=== PATIENT | male | born 1940 | race Caucasian/White ===

== ENCOUNTER 2022-02-14 23:50 | Emergency (ER) | payer MEDICARE, BC, SELFPAY ==
[2022-02-14 23:54] VITALS: BP 149/94; PULSE 56; RESP 20; TEMP 36.4; O2SAT 98; BMI 31.2
[2022-02-15 00:30] VITALS: BP 135/83; PULSE 53; RESP 12; O2SAT 96
[2022-02-15 01:00] VITALS: BP 125/79; PULSE 53; RESP 22; O2SAT 95
[2022-02-15 01:09] LABS: Basophils Absolute Auto 0.04 K/uL (0.00-0.30); Basophils Percent Auto 0.7 % (0.0-3.0); Eosinophils Percent Auto 6.8 % (0.0-7.0); Hematocrit 38.1 % (37.0-53.0); Hemoglobin* 12.7 gm/dL (13.5-17.5); Immature Granulocytes Abs Auto 0.03 K/uL (0.00-0.30); Immature Granulocytes Pct Auto 0.5 %; Lymphocytes Absolute Auto 2.02 K/uL (0.90-2.90); Lymphocytes Percent Auto 34.2 % (20-44); Mean Corpuscular HGB Conc 33 gm/dL (32-36); Mean Corpuscular Hemoglobin 30 pg (26-34); Mean Corpuscular Volume 89 fL (80-100); Monocytes Percent Auto 10.2 % (0.0-11.0); Neutrophils Absolute Auto 2.81 K/uL (1.7-7.0); Neutrophils Percent Auto 47.6 % (42.0-72.0); Platelet Count* 155 K/uL (140-440); RDW Coefficient of Variation % 13.7 % (11.5-15.5)
[2022-02-15 01:11] VITALS: PULSE 55; O2SAT 95
[2022-02-15 01:14] LABS: Slide Review Reflex No
[2022-02-15 01:21] LABS: Chloride* 108 mmol/L (96-114); Potassium* 3.5 mmol/L (3.6-5.1); Sodium* 137 mmol/L (135-149)
[2022-02-15 01:24] LABS: Est. Creatinine Clearance* 55.97; Estimated Glomerular Filt Rate 75 ml/min
[2022-02-15 01:25] LABS: Blood Urea Nitrogen* 22 mg/dL (7-30); Carbon Dioxide* 20 mmol/L (20-32); Glucose* 172 mg/dL (60-115)
[2022-02-15 01:30] VITALS: PULSE 41; O2SAT 96
[2022-02-15 01:32] VITALS: BP 122/78; PULSE 46; O2SAT 96
[2022-02-15 01:40] LABS: C Reactive Protein* < 0.5 mg/dL (0.5-1.0); NT Pro B Type NatriureticPept* 613 pg/mL; Troponin I* < 0.01 ng/mL (0.01-0.04)
--- NOTE | 2022-02-15 01:59 | ED.GENADULT ---
HPI - General Adult General Chief complaint: Chest Pain Stated complaint: Fast Heartrate Time Seen by Provider: 02/15/22 00:06 History of Present Illness HPI narrative: After /early January 81-year-old Mr. Coleman was seen I believe in 2 harbors and diagnosed with pneumonia and an irregular heartbeat. I believe was placed on Eliquis at that time. Follow up with primary care provider was initiated on a ZIO patch which he has while on currently; to wear for 2 weeks. It sounds as though diagnosis was of atrial fibrillation. They note an irregular heartbeat at follow-up. He is asymptomatic otherwise. Arrives here today though with complaint of the on discomfort mild maybe 1-1/2. Not generating shortness of breath or nausea. He admits that might have gotten a little worried about this. Just did not feel right and was up pacing the house. Initially I am understanding that there was a rapid heart rate but really that does not sound to be the case on further questioning. Plans yet follow-up early this coming week for a cardiac echo. Does exercise regularly. Has recently been on the exercise bike although seems to really enjoys cross-country skiing which he did this morning without apparent difficulty. Related Data Home Medications Medication Instructions Recorded Confirmed apixaban 5 mg tablet (Eliquis) mg 02/15/22 blood sugar diagnostic (True 02/15/22 02/15/22 Metrix Glucose Test Strip) glipizide 2.5 mg tablet, extended mg PO 02/15/22 release 24 hr lisinopril 20 tab 02/15/22 mg-hydrochlorothiazide 25 mg tablet metformin 500 mg tablet,extended mg PO 02/15/22 release 24 hr Allergies Allergy/AdvReac Type Severity Reaction Status Date / Time No Known Drug Allergies Allergy Verified 02/15/22 00:05 Review of Systems Status of ROS: Reports: 10 or more systems reviewed and unremarkable except as noted in History and below PFSH PFSH Social History Smoking Status: Former smoker Do you use any of these nicotine containing products: None Second hand tobacco smoke exposure: Yes How often do you have a drink containing alcohol: 4 or more times a week How many standard drinks containing alcohol do you have on a typical day: 1 or 2 AUDIT-C Alcohol total score: 4 Non-prescribed substance use: denies use Exam Narrative: Exam Narrative: A pleasant. Of good energy. Thoughtful. Seems a little anxious. Skin is warm and dry. Lower extremities with very trace pretibial pitting edema. Well-perfused generally. Moving all extremities without difficulty. Neck is supple. Cranial nerves 2-12 appear to be intact. Lungs are clear. Cardiovascular is with a slow rate and appears to be in an irregularly irregular rhythm initially subtle. Seems more irregular with reauscultation later. Abdomen is overweight soft and nontender. Oropharynx is moist. Const: Vital Signs, click to edit/add: Vital Signs - 24 hr 02/14/22 23:54 02/15/22 01:11 02/15/22 00:30 Temperature 97.5 F L Pulse Rate 55 L 53 L Pulse Rate [Right Pulse Oximeter] 56 L Respiratory Rate 20 12 Blood Pressure 135/83 Blood Pressure [Le ft Upper Arm] 149/94 H Pulse Oximetry 98 95 96 Oxygen Delivery Me thod Room Air 02/15/22 01:00 02/15/22 01:30 02/15/22 01:32 Temperature Pulse Rate 53 L 41 L 46 L Pulse Rate [Right Pulse Oximeter] Respiratory Rate 22 Blood Pressure 125/79 122/78 Blood Pressure [Le ft Upper Arm] Pulse Oximetry 95 96 96 Oxygen Delivery Me thod 02/15/22 02:00 Temperature Pulse Rate 65 Pulse Rate [Right Pulse Oximeter] Respiratory Rate Blood Pressure Blood Pressure [Le ft Upper Arm] Pulse Oximetry 96 Oxygen Delivery Me thod Documenting provider has reviewed patient's vital signs: yes Course Vital Signs Vital signs: Initial Vital Signs Temperature 97.5 F L 02/14/22 23:54 Temperature Source Temporal Artery Scan 02/14/22 23:54 Pulse Rate 56 L 02/14/22 23:54 Respiratory Rate 20 02/14/22 23:54 Blood Pressure 149/94 H 02/14/22 23:54 Blood Pressure Mean 112 02/14/22 23:54 Blood Pressure Position Supine 02/14/22 23:54 Pulse Oximetry 98 02/14/22 23:54 Oxygen Delivery Method 02/14/22 23:54 Vital Signs Temperature 97.5 F L 02/14/22 23:54 Pulse Rate 56 L 02/14/22 23:54 Respiratory Rate 20 12/17/22 23:54 Blood Pressure 149/94 H 02/14/22 23:54 Pulse Oximetry 98 02/14/22 23:54 Oxygen Delivery Method 02/14/22 23:54 Temperature 97.5 F L 02/14/22 23:54 Pulse Rate 65 02/15/22 02:00 Respiratory Rate 22 02/15/22 01:00 Blood Pressure 122/78 02/15/22 01:32 Pulse Oximetry 96 02/15/22 02:00 Oxygen Delivery Method 02/14/22 23:54 Medical Decision Making MDM Narrative Medical decision making narrative: Initial EKG reviewed by me shows what looks to be an a flutter baseline though in an irregular rhythm. Rate of 53. He does note that heart rate typically is slow. He is already anticoagulated. Is currently being monitor was ZIO patch. Is asymptomatic otherwise. We are now about 3 hours plus into symptoms. I discuss likelihood of workup being positive for ischemic disease. I suspect ischemic workup is low yield though I think there is some value in monitoring. We do agree to proceed with some laboratory workup as well. He is monitor during this in the emergency department. Does have times where heart rate goes down into the high 30s. Remains Asymptomatic. He does also throw PVCs here and there. Labs are unremarkable. He is anxious to leave. With discomfort rated now 0.4. Lab Data Lab results reviewed: Yes I reviewed the patient's lab results Labs: Lab Results 02/15/22 02/15/22 02/15/22 Range/Units 00:55 00:55 00:55 WBC 5.90 (4.50-11.00) K/uL RBC 4.30 (4.30-5.90) m/uL Hgb 12.7 L (13.5-17.5) gm/dL Hct 38.1 (37.0-53.0) % MCV 89 (80-100) fL MCH 30 (26-34) pg MCHC 33 (32-36) gm/dL RDW Coeff of Ferny 13.7 (11.5-15.5) % Plt Count 155 (140-440) K/uL Neut % (Auto) 47.6 (42.0-72.0) % Lymph % (Auto) 34.2 (20-44) % [place] % (Auto) 10.2 (0.0-11.0) % Eos % (Auto) 6.8 (0.0-7.0) % Baso % (Auto) 0.7 (0.0-3.0) % Neut # (Auto) 2.81 (1.7-7.0) K/uL Lymph # (Auto) 2.02 (0.90-2.90) K/uL [place] # (Auto) 0.60 (0.00-0.90) K/UL Eos # (Auto) 0.40 (0.00-0.50) K/uL Baso # (Auto) 0.04 (0.00-0.30) K/uL Sodium 137 (135-149) mmol/L Potassium 3.5 L (3.6-5.1) mmol/L Chloride 108 (96-114) mmol/L Carbon Dioxide 20 (20-32) mmol/L BUN 22 (7-30) mg/dL Creatinine 1.0 (0.5-1.5) mg/dL Estimated Creat Clear 55.97 Estimated GFR 75 ml/min Glucose 172 H (60-115) mg/dL Calcium 9.0 (8.4-10.6) mg/dL Troponin I < 0.01 L (0.01-0.04) ng/mL C-Reactive Protein < 0.5 L (0.5-1.0) mg/dL NT-Pro-B Natriuret Pep 613 pg/mL POC Troponin I 0.00 L (0.01-0.04) ng/ml Discharge Plan Discharge Clinical Impression: Atrial fibrillation/flutter, Bradycardia Patient Disposition: Home w/ Parent or Adult Condition: Improved Additional Instructions: Stay hydrated. I think it is okay if you want to go exercising/skiing. If you start to feel symptomatic for example lightheaded, shortness of breath, worsening chest pain, these would be reasons to return to the emergency department. Otherwise keep taking your Eliquis and follow up with that echo as scheduled on Wednesday. Prescriptions: No Action (DME) True Metrix Glucose Test Strip Strip MISCELLANEOUS Label Comments: TEST 2 TIMES PER WEEK. glipizide 2.5 mg tablet extended release 24hr PO Label Comments: TAKE 1 TABLET (2.5 MG) BY MOUTH ONCE DAILY BEFORE A MEAL. lisinopril-hydrochlorothiazide 20-25 mg tablet Label Comments: TAKE ONE TABLET BY MOUTH ONCE DAILY metformin 500 mg tablet extended release 24 hr PO Label Comments: TAKE 4 TABLETS (2,000 MG) BY MOUTH ONCE DAILY WITH EVENING MEAL. Eliquis 5 mg tablet Label Comments: TAKE 1 TABLET (5 MG) BY MOUTH TWO TIMES DAILY. Follow Up/Referrals: Bari Toscano MD [Primary Care Provider] - Stand Alone Forms: [facility] Info Instructions
[2022-02-15 02:00] VITALS: PULSE 65; O2SAT 96
== END 2022-02-15 02:07 | disposition home or self-care (01) ==
PROVIDERS: Emergency Provider Family Medicine; PCP Family Medicine
DX: I48.91 Unspecified atrial fibrillation (principal); R00.1 Bradycardia, unspecified
CPT/HCPCS: 36415; 80048; 83880; 84484; 85025; 86140; 99283; 99284

== ENCOUNTER 2022-03-20 07:56 | Emergency (ER) | payer MEDICARE, SELFPAY ==
[2022-03-20] VITALS (14 sets, daily range): BP systolic 101–141; BP diastolic 64–93; PULSE 44–65; RESP 18; TEMP 35.8; O2SAT 79–100; BMI 30.4
[2022-03-20 08:52] LABS: Basophils Absolute Auto 0.02 K/uL (0.00-0.30); Basophils Percent Auto 0.4 % (0.0-3.0); Eosinophils Absolute Auto 0.23 K/uL (0.00-0.50); Eosinophils Percent Auto 4.7 % (0.0-7.0); Hemoglobin* 13.4 gm/dL (13.5-17.5); Lymphocytes Absolute Auto 1.38 K/uL (0.90-2.90); Lymphocytes Percent Auto 27.9 % (20-44); Mean Corpuscular HGB Conc 34 gm/dL (32-36); Mean Corpuscular Hemoglobin 30 pg (26-34); Mean Corpuscular Volume 88 fL (80-100); Monocytes Percent Auto 9.7 % (0.0-11.0); Neutrophils Absolute Auto 2.83 K/uL (1.7-7.0); Neutrophils Percent Auto 57.3 % (42.0-72.0); Platelet Count* 152 K/uL (140-440); RDW Coefficient of Variation % 13.8 % (11.5-15.5); Red Blood Count 4.53 m/uL (4.30-5.90); White Blood Count* 4.94 K/uL (4.50-11.00)
[2022-03-20] MEDS: SODIUM CHLORIDE 0.9 % (FLUSH) 10 ML SYRINGE 5 ML IVF (08:53)
[2022-03-20 09:09] LABS: Chloride* 107 mmol/L (96-114); Potassium* 3.8 mmol/L (3.6-5.1); Sodium* 137 mmol/L (135-149)
[2022-03-20 09:11] LABS: Creatinine* 0.9 mg/dL (0.5-1.5); Est. Creatinine Clearance* 56.78; Estimated Glomerular Filt Rate 84 ml/min
[2022-03-20 09:12] LABS: Blood Urea Nitrogen* 23 mg/dL (7-30); Calcium* 8.5 mg/dL (8.4-10.6); Carbon Dioxide* 24 mmol/L (20-32); Glucose* 228 mg/dL (60-115)
[2022-03-20 09:13] LABS: Magnesium* 1.9 mg/dL (1.5-2.6)
[2022-03-20 09:28] LABS: Troponin I* < 0.01 ng/mL (0.01-0.04)
[2022-03-20 09:44] LABS: Slide Review Reflex No
[2022-03-20 10:06] LABS: SARS PCR* Negative SARS-CoV-2 (Negative)
--- NOTE | 2022-03-20 11:23 | ED_ITS ---
HPI - General Adult General Chief complaint: Arrhythmia/Palpitations Stated complaint: Heart Palpitations Time Seen by Provider: 03/20/22 07:59 Source: patient and family Mode of arrival: ambulatory Limitations: no limitations History of Present Illness HPI narrative: 82-year-old male with a known history of atrial flutter presents to the emergency department because of increased dyspnea on exertion. Patient was diagnosed with atrial flutter back in December at an outside hospital while vacationing. He was appropriately started on Eliquis but because they are also signs of second-degree block, he was not started on any medications for rate control as they were not needed. Patient reports that for the next 6 weeks, he continued to take his blood thinners and let an active life, cross-country skiing, no difficulties. He actually did follow up with Cardiology last week. Holter monitor, echo those types of things were all reviewed at that appointment. At that time patient was comfortable with a conservative management, elected not to have a pacemaker placed or any other interventions performed. Presents to initially urgent care this morning with increased dyspnea, especially on exertion, feeling generally weaker but with no chest pain. This has been certainly going on at least 24 hours but it sounds more like 48 based on his description, gradual onset. In Urgent Care, he was noted to have a heart rate in the 40s, was ultimately referred to the emergency department. There has been no fever or productive cough. He has not tried any interventions to help with his symptoms prior to seeking ED management. Last meal was 630 in the morning, 2 hours prior to arrival. Does feel irregular heart rate. His clear that something was wrong was when he had to stop every minute or so while trying to ice skate yesterday which is atypical for him. In summary, the echo performed last month showed an EF of 62% with normal right ventricular size and function mild mitral regurgitation. His IO patch showed a minimum heart rate of 22 with a max of 162 but an average of around 60 beats per minute 40% atrial fibrillation/a flutter did have 2nd pauses, 7 of these total. Past medical history most notable for diabetes, atrial flutter. Hypertension, prostate disease. Medications notable for glipizide, lisinopril, hydrochlorothiazide, metformin and recently Eliquis. Socially is a nonsmoker, active lifestyle, no pertinent recent travel. Does have a lot of upcoming travel planned. ROS is notable for the generalized cardiovascular symptoms as above, otherwise denies times 12 systems. Related Data Home Medications Medication Instructions Recorded Confirmed apixaban 5 mg tablet (Eliquis) 5 mg PO Q12H 02/15/22 03/20/22 blood sugar diagnostic (True 02/15/22 02/15/22 Metrix Glucose Test Strip) glipizide 2.5 mg tablet, extended 2.5 mg PO DAILY 02/15/22 03/20/22 release 24 hr lisinopril 20 1 tab PO DAILY 02/15/22 03/20/22 mg-hydrochlorothiazide 25 mg tablet metformin 500 mg tablet,extended 2,000 mg PO DAILY 02/15/22 03/20/22 release 24 hr Allergies Allergy/AdvReac Type Severity Reaction Status Date / Time No Known Drug Allergies Allergy Verified 03/20/22 08:09 [facility] Social History Smoking Status: Former smoker Do you use any of these nicotine containing products: None Second hand tobacco smoke exposure: Yes How often do you have a drink containing alcohol: 4 or more times a week How many standard drinks containing alcohol do you have on a typical day: 1 or 2 AUDIT-C Alcohol total score: 4 Non-prescribed substance use: denies use Exam Const: Vital Signs, click to edit/add: Vital Signs - 24 hr 03/20/22 08:00 03/20/22 10:30 03/20/22 10:32 Temperature 96.5 F L Pulse Rate 52 L 54 L Pulse Rate [Right Pulse Oximeter] 46 L Respiratory Rate 18 Blood Pressure 101/64 Blood Pressure [Ri ght Upper Arm] 141/77 H Pulse Oximetry 99 94 97 Oxygen Delivery Me thod Room Air 03/20/22 11:00 03/20/22 11:01 03/20/22 11:30 Temperature Pulse Rate 44 L 50 L 50 L Pulse Rate [Right Pulse Oximeter] Respiratory Rate Blood Pressure 111/64 Blood Pressure [Ri ght Upper Arm] Pulse Oximetry 97 98 97 Oxygen Delivery Me thod 03/20/22 11:31 03/20/22 11:32 03/20/22 12:00 Temperature Pulse Rate 53 L 44 L 65 Pulse Rate [Right Pulse Oximeter] Respiratory Rate Blood Pressure 127/79 Blood Pressure [Ri ght Upper Arm] Pulse Oximetry 96 97 79 L Oxygen Delivery Me thod 03/20/22 12:01 03/20/22 12:30 03/20/22 12:31 Temperature Pulse Rate 46 L 55 L 61 Pulse Rate [Right Pulse Oximeter] Respiratory Rate Blood Pressure 123/81 129/88 Blood Pressure [Ri ght Upper Arm] Pulse Oximetry 100 98 98 Oxygen Delivery Me thod 03/20/22 13:00 03/20/22 13:02 Temperature Pulse Rate 53 L 54 L Pulse Rate [Right Pulse Oximeter] Respiratory Rate Blood Pressure 135/93 H Blood Pressure [Ri ght Upper Arm] Pulse Oximetry 99 98 Oxygen Delivery Me thod Documenting provider has reviewed patient's vital signs: yes Common normals: no apparent distress General appearance: cooperative, comfortable and well kempt HENMT: Common normals: normocephalic and head/scalp atraumatic Head and scalp: normocephalic and atraumatic Mouth: oral and palatal mucosa normal Throat: posterior oropharynx normal Eye: Common normals: conjunctivae normal General eye: normal appearance of both eyes Conjunctiva: conjunctiva(e) normal Neck & C-Spine: Common normals: no lymphadenopathy Chest: Common normals: inspection of chest normal Resp: Common normals: normal respiratory effort, no use of accessory muscles and clear to auscultation bilaterally Effort & inspection: able to speak in complete sentences Auscultation: clear to auscultation bilaterally Cardio: Other: Irregular rate, around 50 at the time of my auscultation and does match with peripheral pulse. No obvious murmur, no gallops. GI: Common normals: Normal to inspection, nondistended, normoactive bowel sounds present, soft to palpation, non-tender and no hepatosplenomegaly Palpation: soft and no hepatosplenomegaly Extremity: Common normals: normal capillary refill and no pedal edema Neuro: Motor exam: no tremor noted and no movement abnormalities noted Psych: Appearance: well kempt Attitude: calm and engaged Mood and affect: euthymic mood Insight: insight good Judgement: judgment good Skin: Common normals: no rashes or lesions noted General skin exam: no rashes or lesions noted Course Vital Signs Vital signs: Initial Vital Signs Temperature 96.5 F L 03/20/22 08:00 Temperature Source Temporal Artery Scan 03/20/22 08:00 Pulse Rate 46 L 03/20/22 08:00 Pulse Rhythm 03/20/22 08:00 Respiratory Rate 18 03/20/22 08:00 Blood Pressure 141/77 H 03/20/22 08:00 Blood Pressure Mean 98 03/20/22 08:00 Blood Pressure Position Sitting 03/20/22 08:00 Pulse Oximetry 99 03/20/22 08:00 Oxygen Delivery Method 03/20/22 08:00 Vital Signs Temperature 96.5 F L 03/20/22 08:00 Pulse Rate 46 L 03/20/22 08:00 Respiratory Rate 18 03/20/22 08:00 Blood Pressure 141/77 H 03/20/22 08:00 Pulse Oximetry 99 03/20/22 08:00 Oxygen Delivery Method 03/20/22 08:00 Temperature 96.5 F L 03/20/22 08:00 Pulse Rate 54 L 03/20/22 13:02 Respiratory Rate 18 03/20/22 08:00 Blood Pressure 135/93 H 03/20/22 13:02 Pulse Oximetry 98 03/20/22 13:02 Oxygen Delivery Method 03/20/22 08:00 Medical Decision Making MDM Narrative Medical decision making narrative: Per Cardiology recommendation, ambulated the patient around the ED and he is notably dyspnea with minimal exertion. This is much more than patient had originally reported to me. Unfortunately, his heart rate does not increase with exercise. Heart rate did not get above 60 with activity. Does dropped as low as about 37 for us. Is not symptomatic at rest. Discussed with Dr. Mitchell, benefit from pacemaker. We are now on wait list for transfer to [facility]. Patient will remain NPO. Basic labs reviewed, noncontributory. EKG per my interpretation showing a 4-1 atrial flutter. From previous EKGs I do know that he has a second-degree type 1 av block which is better seen on his outpatient EKGs. [place] is an [place]iley normal, prior comparison from [facility] are noted. Patient remain on yacht hand, awaiting instructions for transfer. No instability, does not require pace at this time Update: Transfer to [facility] by ALS ground with no complications. Plan of care discussed with patient and spouse prior to discharge. Lab Data Lab results reviewed: Yes I reviewed the patient's lab results Labs: Lab Results 03/20/22 03/20/22 03/20/22 Range/Units 08:45 08:45 09:17 WBC 4.94 (4.50-11.00) K/uL RBC 4.53 (4.30-5.90) m/uL Hgb 13.4 L (13.5-17.5) gm/dL Hct 40.0 (37.0-53.0) % MCV 88 (80-100) fL MCH 30 (26-34) pg MCHC 34 (32-36) gm/dL RDW Coeff of Ferny 13.8 (11.5-15.5) % Plt Count 152 (140-440) K/uL Neut % (Auto) 57.3 (42.0-72.0) % Lymph % (Auto) 27.9 (20-44) % [place] % (Auto) 9.7 (0.0-11.0) % Eos % (Auto) 4.7 (0.0-7.0) % Baso % (Auto) 0.4 (0.0-3.0) % Neut # (Auto) 2.83 (1.7-7.0) K/uL Lymph # (Auto) 1.38 (0.90-2.90) K/uL [place] # (Auto) 0.50 (0.00-0.90) K/UL Eos # (Auto) 0.23 (0.00-0.50) K/uL Baso # (Auto) 0.02 (0.00-0.30) K/uL Sodium 137 (135-149) mmol/L Potassium 3.8 (3.6-5.1) mmol/L Chloride 107 (96-114) mmol/L Carbon Dioxide 24 (20-32) mmol/L BUN 23 (7-30) mg/dL Creatinine 0.9 (0.5-1.5) mg/dL Estimated Creat Clear 56.78 Estimated GFR 84 ml/min Glucose 228 H (60-115) mg/dL Calcium 8.5 (8.4-10.6) mg/dL Magnesium 1.9 (1.5-2.6) mg/dL Troponin I < 0.01 L (0.01-0.04) ng/mL SARS-CoV-2 (PCR) Negative SARS-CoV-2 (Negative) Discharge Plan Discharge Prescriptions: No Action (DME) True Metrix Glucose Test Strip Strip MISCELLANEOUS Label Comments: TEST 2 TIMES PER WEEK. glipizide 2.5 mg tablet extended release 24hr 2.5 mg PO DAILY Label Comments: TAKE 1 TABLET (2.5 MG) BY MOUTH ONCE DAILY BEFORE A MEAL. lisinopril-hydrochlorothiazide 20-25 mg tablet 1 tab PO DAILY Label Comments: TAKE ONE TABLET BY MOUTH ONCE DAILY metformin 500 mg tablet extended release 24 hr 2,000 mg PO DAILY Label Comments: TAKE 4 TABLETS (2,000 MG) BY MOUTH ONCE DAILY WITH EVENING MEAL. Eliquis 5 mg tablet 5 mg PO Q12H Label Comments: TAKE 1 TABLET (5 MG) BY MOUTH TWO TIMES DAILY. Follow Up/Referrals: Bari Toscano MD [Primary Care Provider] -
--- NOTE | 2022-03-20 11:28 | ED.NURSE ---
no change in condition. [facility] has accepted. 4-8hr wait
--- NOTE | 2022-03-20 13:27 | ED.NURSE ---
EMS here. will transfer to [facility] via ALS. report given.
== END 2022-03-20 13:29 | disposition short-term general hospital (02) ==
LOC: ED 08:51
PROVIDERS: Emergency Provider Family Medicine; PCP Family Medicine
DX: R00.1 Bradycardia, unspecified (principal)
CPT/HCPCS: 36415; 80048; 83735; 84484; 85025; 87635; 93005; 99283; 99285

== ENCOUNTER 2022-03-20 13:19 | Outpatient (CLI) | payer MEDICARE, SELFPAY | END 2022-03-20 13:20 | disposition home or self-care (01) | LOC: AMB 03-23 12:43 | PROVIDERS: PCP Family Medicine; Visit Provider Family Medicine | DX: R06.09 Other forms of dyspnea (principal) | CPT/HCPCS: A0425; A0426; A0427 ==

== ENCOUNTER 2022-09-24 13:30 | Outpatient (RCR) | payer MEDICARE, SELFPAY | END 2022-09-24 15:55 | disposition home or self-care (01) | PROVIDERS: PCP Family Medicine; Visit Provider Family Medicine | DX: M54.50 Low back pain, unspecified (principal); Z51.89 Encounter for other specified aftercare | CPT/HCPCS: 97110; 97112; 97162 ==

== ENCOUNTER 2022-10-20 14:27 | Outpatient (CLI) | payer MEDICARE, SELFPAY ==
--- OUTSIDE RECORDS SUMMARY | 2022-10-20 14:31 | XMS_ITS | Continuity of Care Document ---
Author Name Unknown Organization [facility] Address [address] [place] [address] Phone Care Team Providers Care Taping Supervisor Name Role Phone Pardeep Baird MD Unavailable Unavailable Medications Medication Instructions Dosage Effective Dates (start - stop) Status Comments ALEVE (unknown strength) Not Available - Active TYLENOL (unknown strength) Not Available - Active GABAPENTIN (unknown strength) Not Available - Active OXYCODONE HCL (unknown strength) Not Available - Active Procedures Procedure Date Office/Outpatient Visit,Est, Low 2012 Postop Followup Visit Decompress Lumbar Spinalcord Seg 2012 Doc Antibio Order B/4 Surg Doc Antibio Given B/4 Surg Order For 1st/2nd Gen Cephalsporin Doc Antibiotics Were Given Within 4 Hour s To Incis Doc Order To Discontinue Within 24 Hours Surgical Assist Decompress Lumbar Spinalcord Seg Office/Outpatient Visit,[facility] 2012 Advance Directives Directive Yes / No Effective Date File Name No Information Encounters Encounter Description Practice Location Reason(s) For Visit Diagnoses Date Provider Providers Copied on Encounter [facility], [address], [place], [place], [id number], [place] tel:[phone] [facility] No Information 5 Brie Roberto. [facility] [place], [facility] [address] [place] [address], [facility] [address], [place], [id number], [place]. tel:[phone] Office/Outpa tient Visit,Est, Low Z [facility] [place], [facility] [address] [place] [address] [address], [place], [address], [place] tel:[phone] [facility] No Information 3 [place]. [address], [id number], [place]. tel:[phone] Referring Provider: Brayden Velázquez, [address], [address]. tel:[phone] Z [facility], [address] [place] [address], [facility], [place] tel:[phone] [facility] No Information 0 8 3 [address], [id number], [place]. tel:[phone] Referring Provider: Brayden Velázquez, [address], [address]. tel:[phone] Z [facility] [place], [address] [place] [address], [facility], [place] tel:[phone] [facility] No Information 0 [address], [id number], [place]. tel:[phone] Z [facility] [place], [address] [place] [address], [facility], [place] tel:[phone] [facility] No Information 0 3 Transfeldt Ensor. [facility] [place], [address], [id number], [place]. tel:[phone] Referring Provider: Brayden Velázquez, [address], [address]. tel:[phone] Office/Outpa tient Visit,[facility], [facility], [address] [place] [address], [facility], [place] tel:[phone] [facility] LUMBAGO 3 [place] [place]or. [facility] [place], [address] [place] [address], [id number], [place]. tel:[phone] Referring Provider: Brayden Velázquez [address], [address]. tel:[phone] Family History Family Member Type Diagnosis Age At Onset No Information Payers Payer name Insurance type Covered libertarian ID Authoriza tion(s) No Information Social History Type Description Quantity Date Captured Comments Sex Male Smoking Status No Information Chief Complaint And Reason For Visit No Information Reason For Referral Reason For Referral No Information History Of Present Illness Encounter Date Complaint History Of Prese nt Illness No Information Functional Status Date Functional Assessmen t No Information Instructions Date Instruction Additional Infor mation No Information Assessments Type Assessment Date No Information Patient Care Teams Name Effective Dates (start - stop) Status Members No Information
== END 2022-10-20 14:28 | disposition home or self-care (01) ==
LOC: INJ CL 14:29
PROVIDERS: PCP Family Medicine; Visit Provider Family Medicine
DX: M54.16 Radiculopathy, lumbar region (principal); M51.36 Other intervertebral disc degeneration, lumbar region
CPT/HCPCS: 64483; J1100; Q9966

== ENCOUNTER 2023-02-01 18:30 | Emergency (ER) | payer MEDICARE, SELFPAY ==
[2023-02-01 19:19] VITALS: BP 107/63; PULSE 82; RESP 20; TEMP 37.1; O2SAT 94; BMI 31.0
[2023-02-01 21:54] VITALS: BP 148/66; PULSE 87; RESP 16; O2SAT 98
--- NOTE | 2023-02-01 22:23 | ED.GENADULT ---
HPI - General Adult General Chief complaint: Syncope/Fainted Stated complaint: Dizzy, faint Time Seen by Provider: 02/01/23 22:21 History of Present Illness HPI narrative: around 1800 at dinner finished eating and felt dizzy and vision got blurry, laid head on table due to feeling this way but denies passing out. has been recently having problems with blood sugars being all over the place did not check sugar at the time of feeling dizzy, patient currently on prednisone for PMR. denies LOC . no weakness or speech problems at this time, patient has equal movement of all extremities, symptoms have at this time resolved. denies any Neuro hx. on Eliquis for pacemaker. 82-year-old man presenting to the emergency department after concern of passing out or least nearly so while at supper this evening approximately 3 hours prior to this interview in very busy emergency department. Describes a great deal of activity and regular exertion. Was more active over the last couple of days than usual. Underlying history of PMR. About to begin a taper off of prednisone dosing for PMR flare. He says during dinner today felt dizzy and vision was maybe a little bit blurry prompting him to place his head on the table and recalls trying to force himself back up. Does not believe actually passed out. reports this occurring 3 times. Over the course of 3-4 minutes. No discoordination, sensory loss or focal weakness is described. Is not describe to have been postictal. No history of seizures. He has not had any fever recently. No cough or cold symptoms. Otherwise has felt well other than maybe a little more achy generally. Blood sugars have been elevated. In later discussion with Cardiology confirming history of paroxysmal afib and slow ventricular response prompting pacer placement. In september pacer interrogation looked good Anticoagulated with apixaban. Related Data Home Medications Medication Instructions Recorded Confirmed apixaban 5 mg tablet (Eliquis) 5 mg PO Q12H 02/15/22 03/20/22 blood sugar diagnostic (True 02/15/22 02/15/22 Metrix Glucose Test Strip) glipizide 2.5 mg tablet, extended 2.5 mg PO DAILY 02/15/22 03/20/22 release 24 hr lisinopril 20 1 tab PO DAILY 02/15/22 03/20/22 mg-hydrochlorothiazide 25 mg tablet metformin 500 mg tablet,extended 2,000 mg PO DAILY 02/15/22 03/20/22 release 24 hr Allergies Allergy/AdvReac Type Severity Reaction Status Date / Time No Known Drug Allergies Allergy Verified 03/20/22 08:09 Review of Systems Status of ROS: Reports: 6 or more systems reviewed and unremarkable except as noted in History and below PFSH PFS Social History Smoking Status: Former smoker Do you use any of these nicotine containing products: None Second hand tobacco smoke exposure: Yes How often do you have a drink containing alcohol: 4 or more times a week How many standard drinks containing alcohol do you have on a typical day: 1 or 2 AUDIT-C Alcohol total score: 4 Non-prescribed substance use: denies use Exam Narrative: Exam Narrative: Kyle complexion. Very pleasantly talkative. NAD. Demonstrating dementia with some poor recall and repeating himself. Moving all extremities with good strength, fluidly. He is well-perfused peripherally. 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 Cranial nerves 2-12 intact. Pupils are 3 mm equal and briskly reactive and accommodating. Head is atraumatic. Neck is supple. Strong and equal carotid upstroke. Lungs are clear. Heart in regular rate and rhythm. Abdomen is soft and nontender. Const: Vital Signs, click to edit/add: Vital Signs - 24 hr 02/01/23 19:19 02/01/23 21:54 Temperature 98.7 F Pulse Rate [Pulse Oximeter] 82 87 Respiratory Rate 20 16 Blood Pressure [Ri t Upper Arm] 107/63 148/66 H Pulse Oximetry 94 98 Oxygen Delivery Me thod Room Air Room Air Documenting provider has reviewed patient's vital signs: yes Course Vital Signs Vital signs: Initial Vital Signs Temperature 98.7 F 02/01/23 19:19 Temperature Source Temporal Artery Scan 02/01/23 19:19 Pulse Rate 82 02/01/23 19:19 Respiratory Rate 20 02/01/23 19:19 Blood Pressure 107/63 02/01/23 19:19 Blood Pressure Mean 77 02/01/23 19:19 Blood Pressure Position Sitting 02/01/23 19:19 Pulse Oximetry 94 02/01/23 19:19 Oxygen Delivery Method Room Air 02/01/23 19:19 Vital Signs Temperature 98.7 F 02/01/23 19:19 Pulse Rate 82 02/01/23 19:19 Respiratory Rate 20 02/01/23 19:19 Blood Pressure 107/63 02/01/23 19:19 Pulse Oximetry 94 02/01/23 19:19 Oxygen Delivery Method Room Air 02/01/23 19:19 Temperature 98.7 F 02/01/23 19:19 Pulse Rate 80 02/01/23 22:52 Respiratory Rate 16 02/01/23 22:52 Blood Pressure 140/60 H 02/01/23 22:52 Pulse Oximetry 98 02/01/23 22:52 Oxygen Delivery Method Room Air 02/01/23 22:52 Medications Administered Medications: Discontinued Medications Generic Name Dose Route Start Last Admin Trade Name Freq PRN Reason Stop Dose Admin Sodium Chloride 1,000 mls @ 1,000 mls/hr 02/01/23 22:51 02/02/23 00:32 0.9 % Sodium Chloride 1000 Ml IV 02/01/23 23:50 Infused .Q1H ONE Infusion Medical Decision Making MDM Narrative Medical decision making narrative: Will be monitoring on phototypesetting equipment monitor during time in the emergency department. This certainly could have been a tachy arrhythmia prompting this. Could simply be exhaustion. Has not been having headaches or other prodrome to suggest indolent intracranial process but since he is on apixaban I think it would be good to do a head CT looking for potential bleed at a minimum. PMR likely contributing to fatigue. Will check labs looking for evidence of cardiac injury. Look for infection in the setting of diabetes. Labs with somewhat elevated proBNP from any prior measurements though has had cardiac work between these measurements. Does not appear to be in heart failure exacerbation at this time. Urinalysis finally obtained showing small ketones and 3+ glucosuria. Blood sugar was [address] reviewed by me with senescent changes. No bleed apparent. Radiology over-read as below COMPARISON: Prior MR head from 07/07/2021 is in assessable on PACS at time of dictation.. FINDINGS: No loss of luu-white differentiation suggestive of recent territorial infarct. No intracranial hemorrhage, abnormal extra-axial fluid collection or midline shift. The ventricular system caliber is prominent, with bifrontal diameter measuring 4.9 cm (2:35), and appears dilated out of proportion to the cerebral sulci near the vertex. There is patchy ill-defined periventricular hypoattenuation, nonspecific but can be seen with chronic microvascular ischemic changes. The basal cisterns are patent. Partially empty sella turcica. Scattered mucosal thickening of the paranasal sinuses. The mastoid air cells are clear. The visualized orbits and calvarium are unremarkable. The cerebellar tonsils are in normal position. IMPRESSION: 1. Prominent ventricular system caliber appears out of proportion to the cerebral sulci near the vertex, questionable for underlying normal pressure hydrocephalus. 2. Otherwise, no recent territory infarct, internal hemorrhage or midline shift. Over time in the emergency department was without further event. Overall seemed to have more energy. Less flushed. Anxious to leave. I did discuss findings with both Neurology and Cardiology. Cardiology overall quite reassured with no further recommendations. Neurology also suspects simply incidental findings on imaging. Admittedly no symptoms prior of hydrocephalus. Blood sugars likely elevated, at least partially secondary to steroids. Will need to be monitored further. Sounds as though there are dosing changes planned for diabetic medications through primary care at this time. Lab Data Lab results reviewed: Yes I reviewed the patient's lab results Labs: Lab Results 02/01/23 02/02/23 02/02/23 Range/Units 23:11 00:30 00:35 WBC 8.12 (4.50-11.00) K/uL RBC 4.43 (4.30-5.90) m/uL Hgb 12.8 L (13.5-17.5) gm/dL Hct 39.6 (37.0-53.0) % MCV 89 (80-100) fL MCH 29 (26-34) pg MCHC 32 (32-36) gm/dL RDW Coeff of Ferny 15.2 (11.5-15.5) % Plt Count 178 (140-440) K/uL Neut % (Auto) 73.3 H (42.0-72.0) % Lymph % (Auto) 14.7 L (20-44) % [place] % (Auto) 9.1 (0.0-11.0) % Eos % (Auto) 2.3 (0.0-7.0) % Baso % (Auto) 0.4 (0.0-3.0) % Neut # (Auto) 6.00 (1.7-7.0) K/uL Lymph # (Auto) 1.20 (0.90-2.90) K/uL [place] # (Auto) 0.70 (0.00-0.90) K/UL Eos # (Auto) 0.19 (0.00-0.50) K/uL Baso # (Auto) 0.03 (0.00-0.30) K/uL Abs Immat Gran (auto) 0.02 (0.00-0.30) K/uL Imm/Tot Granulo (auto) 0.2 % D-Dimer Quant (PE/DVT) < 0.27 (0.00-0.50) ug/ml Sodium 133 L (135-149) mmol/L Potassium 4.3 (3.6-5.1) mmol/L Chloride 103 (96-114) mmol/L Carbon Dioxide 23 (20-32) mmol/L Anion Gap 7 (7-15) mEq/L BUN 38 H (7-30) mg/dL Creatinine 1.2 (0.5-1.5) mg/dL Estimated Creat Clear 45.82 Estimated GFR 60 ml/min Glucose 350 H (60-115) mg/dL Lactate 1.7 (0.5-1.9) mmol/L Calcium 8.9 (8.4-10.6) mg/dL Magnesium 2.1 (1.5-2.6) mg/dL Total Bilirubin 1.5 (0.1-1.5) mg/dL Direct Bilirubin 0.1 (0.0-0.5) mg/dL AST 22 (12-35) U/L ALT 16 (4-50) U/L Alkaline Phosphatase 71 (40-150) U/L Troponin I 0.02 (0.01-0.04) ng/mL C-Reactive Protein 0.9 (0.5-1.0) mg/dL NT-Pro-B Natriuret Pep 2390 pg/mL Total Protein 6.4 (6.0-8.3) g/dL Albumin 3.8 (3.3-5.0) g/dL Urine Color Yellow (Yellow) Urine Appearance Clear (Clear) Urine pH 5.0 (5.0-8.5) Ur Specific [place] 1.020 (1.000-1.030) Urine Protein Negative (Negative) Urine Glucose (UA) 3+ A (Negative) Urine Ketones Trace A (Negative) Urine Blood Negative (Negative) Urine Nitrite Negative (Negative) Urine Bilirubin Negative (Negative) Urine Urobilinogen 0.2 (0.2-1.0) Ur Leukocyte Esterase Trace A (Negative) Urine RBC 0-2 (0-2) Urine WBC 0-2 (0-5) Ur Squamous Epith Cells Few (None-Few) Urine Bacteria None (None) Ethyl Alcohol < 0.01 L (0.01-0.03) % SARS-CoV-2 (PCR) Negative SARS-CoV-2 (Negative) Influenza Type A (PCR) Negative PCR FLU A (Negative) Influenza Type B (PCR) Negative PCR FLU B (Negative) RSV (PCR) Negative PCR RSV (Negative) ECG Data Attestation: I personally reviewed and interpreted this ECG as follows: (Normal sinus rhythm with left bundle. Rate of 80.) Prior ECG tracings: available for review (A flutter on prior EKGs. Had become further bradycardic prompting pacemaker placement in the interim) Discharge Plan Discharge Clinical Impression: PMR (polymyalgia rheumatica), Hyperglycemia, Near syncope Patient Disposition: Home w/ Parent or Adult Condition: Stable Additional Instructions: Stay well-hydrated. Continue to monitor blood sugars carefully/closely. I anticipate you increasing your diabetic medications, namely glipizide as you mentioned, tomorrow as recommended by your care providers. Of course follow-up with that heart monitor/pacer data dump as scheduled with focus on 02/01/2023 I will call you if Neurology or Cardiology has anything further to say. Consider cutting your activity down a little bit over the next few days. Prescriptions: No Action (DME) True Metrix Glucose Test Strip Strip MISCELLANEOUS Patient Comments: TEST 2 TIMES PER WEEK. glipizide 2.5 mg tablet extended release 24hr 2.5 mg PO DAILY Patient Comments: TAKE 1 TABLET (2.5 MG) BY MOUTH ONCE DAILY BEFORE A MEAL. lisinopril-hydrochlorothiazide 20-25 mg tablet 1 tab PO DAILY Patient Comments: TAKE ONE TABLET BY MOUTH ONCE DAILY metformin 500 mg tablet extended release 24 hr 2,000 mg PO DAILY Patient Comments: TAKE 4 TABLETS (2,000 MG) BY MOUTH ONCE DAILY WITH EVENING MEAL. Eliquis 5 mg tablet 5 mg PO Q12H Patient Comments: TAKE 1 TABLET (5 MG) BY MOUTH TWO TIMES DAILY. Follow Up/Referrals: Bari Toscano MD [Primary Care Provider] - Stand Alone Forms: [facility] Info Instructions
[2023-02-01 22:52] VITALS: BP 140/60; PULSE 80; RESP 16; O2SAT 98
--- OUTSIDE RECORDS SUMMARY | 2023-02-01 22:59 | XMS_ITS | Continuity of Care Document ---
Author Name Unknown Organization [facility] Address [address] [place] [address] Phone Care Team Providers Care Switchboard Installer Name Role Phone Pardeep Baird MD Unavailable [...] Surgical Assist Decompress Lumbar Spinalcord Seg Office/Outpatient Visit,[facility] 2012 Advance Directives Directive Yes / No Effective Date File Name No Information Encounters Encounter Description Practice Location Reason(s) For Visit Diagnoses Date Provider Providers Copied on Encounter [facility], [address], [place], [place], [id number], [place] tel:[phone] [facility] No Information 5 Brie Roberto. [facility], [facility] [address] [place] [address], [facility] [address], [place], [id number], [place]. tel:[phone] Office/Outpa tient Visit,Est, Low Z [facility], [facility] [address] [place] [address], [place], [address], [place] tel:[phone] [facility] No Information 3 [address], [id number], [place]. tel:[phone] Referring Provider: Brayden Velázquez, [address], [address]. tel:[phone] Z [facility], [address] [place] [address], [facility], [place] tel:[phone] [facility] No Information 0 8 [address], [id number], [place]. tel:[phone] Referring Provider: Brayden Velázquez, [address], [address]. tel:[phone] Z [facility], [address] [place] [address], [facility], [place] tel:[phone] [facility] No Information 0 [address], [id number], [place]. tel:[phone] Z [facility], [address] [place] [address], [facility], [place] tel:[phone] [facility] No Information 0 3 [address] Ensor. [facility], [address], [id number], [place]. tel:[phone] Referring Provider: Brayden Velázquez, [address], [address]. tel:[phone] Office/Outpa tient Visit,[facility], [facility], [address] [place] [address], [facility], [place] tel:[phone] [facility] LUM[place] 3 [address]or. [facility], [address] [place] [address], [id number], [place]. tel:[phone] Referring Provider: Brayden Velázquez [address], [address]. tel:[phone] Family History Family Member Type Diagnosis Age At Onset No Information Payers Payer name Insurance type Covered alliance party ID Authoriza tion(s) No Information Social History [...]
--- NOTE | 2023-02-01 23:01 | CRLHL7_ITS ---
For Patients: As a result of the Cures Act, medical imaging exams and procedure reports are released immediately into your electronic medical record. You may view this report before your referring provider. If you have questions, please contact your health care provider. INDICATION: Dizziness. TECHNIQUE: Multiplanar CT examination of the head was performed without the use of intravenous contrast. COMPARISON: Prior MR head from 07/07/2021 is in assessable on PACS at time of dictation.. FINDINGS: No loss of luu-white differentiation suggestive of recent territorial infarct. No intracranial hemorrhage, abnormal extra-axial fluid collection or midline shift. The ventricular system caliber is prominent, with bifrontal diameter measuring 4.9 cm (2:35), and appears dilated out of proportion to the cerebral sulci near the vertex. There is patchy ill-defined periventricular hypoattenuation, nonspecific but can be seen with chronic microvascular ischemic changes. The basal cisterns are patent. Partially empty sella turcica. Scattered mucosal thickening of the paranasal sinuses. The mastoid air cells are clear. The visualized orbits and calvarium are unremarkable. The cerebellar tonsils are in normal position. IMPRESSION: 1. Prominent ventricular system caliber appears out of proportion to the cerebral sulci near the vertex, questionable for underlying normal pressure hydrocephalus. 2. Otherwise, no recent territory infarct, internal hemorrhage or midline shift. Please note that all CT scans at this facility use dose modulation, iterative reconstruction, and/or weight-based dosing when appropriate to reduce radiation dose to as low as reasonably achievable. Dictated by Case Wayne MD @ 02/02/2023 12:15:41 AM (Electronically Signed)
[2023-02-01 23:16] LABS: Lactate* 1.7 mmol/L (0.5-1.9)
[2023-02-01 23:20] LABS: Basophils Absolute Auto 0.03 K/uL (0.00-0.30); Basophils Percent Auto 0.4 % (0.0-3.0); Eosinophils Absolute Auto 0.19 K/uL (0.00-0.50); Eosinophils Percent Auto 2.3 % (0.0-7.0); Hematocrit 39.6 % (37.0-53.0); Hemoglobin* 12.8 gm/dL (13.5-17.5); Immature Granulocytes Abs Auto 0.02 K/uL (0.00-0.30); Immature Granulocytes Pct Auto 0.2 %; Lymphocytes Percent Auto 14.7 % (20-44); Mean Corpuscular HGB Conc 32 gm/dL (32-36); Mean Corpuscular Hemoglobin 29 pg (26-34); Mean Corpuscular Volume 89 fL (80-100); Monocytes Percent Auto 9.1 % (0.0-11.0); Neutrophils Percent Auto 73.3 % (42.0-72.0); Platelet Count* 178 K/uL (140-440); RDW Coefficient of Variation % 15.2 % (11.5-15.5); Red Blood Count 4.43 m/uL (4.30-5.90); White Blood Count* 8.12 K/uL (4.50-11.00)
[2023-02-01 23:33] LABS: Slide Review Reflex No
[2023-02-01 23:39] LABS: Chloride* 103 mmol/L (96-114); Potassium* 4.3 mmol/L (3.6-5.1); Sodium* 133 mmol/L (135-149)
[2023-02-01] MEDS: 0.9 % SODIUM CHLORIDE 1000 ml 1,000 ML IV (23:39)
[2023-02-01 23:40] LABS: Albumin* 3.8 g/dL (3.3-5.0)
[2023-02-01 23:41] LABS: Creatinine* 1.2 mg/dL (0.5-1.5); Est. Creatinine Clearance* 45.82; Estimated Glomerular Filt Rate 60 ml/min
[2023-02-01 23:42] LABS: Anion Gap 7 mEq/L (7-15); Blood Urea Nitrogen* 38 mg/dL (7-30); Calcium* 8.9 mg/dL (8.4-10.6); Carbon Dioxide* 23 mmol/L (20-32); Glucose* 350 mg/dL (60-115)
[2023-02-01 23:43] LABS: Alanine Aminotransferase* 16 U/L (4-50); Alkaline Phosphatase* 71 U/L (40-150); Aspartate Amino Transferase* 22 U/L (12-35); Bilirubin Direct* 0.1 mg/dL (0.0-0.5); Bilirubin Total* 1.5 mg/dL (0.1-1.5); Magnesium* 2.1 mg/dL (1.5-2.6); Total Protein* 6.4 g/dL (6.0-8.3)
[2023-02-01 23:45] LABS: C Reactive Protein* 0.9 mg/dL (0.5-1.0)
[2023-02-01 23:54] LABS: Troponin I* 0.02 ng/mL (0.01-0.04)
[2023-02-01 23:56] LABS: NT Pro B Type NatriureticPept* 2390 pg/mL
[2023-02-01 23:57] LABS: Ethanol* < 0.01 % (0.01-0.03)
[2023-02-02 00:07] LABS: D Dimer Quantitative* < 0.27 ug/ml (0.00-0.50)
[2023-02-02 00:46] LABS: Appearance Urine Clear (Clear); Bilirubin Urine Negative (Negative); Blood Urine Negative (Negative); Color Urine Yellow (Yellow); Glucose Urine 3+ (Negative); Ketones Urine Trace (Negative); Leukocyte Esterase Urine Trace (Negative); Nitrite Urine Negative (Negative); Protein Urine Negative (Negative); Urobilinogen Urine 0.2 (0.2-1.0)
[2023-02-02 01:10] LABS: PCR FLU A Negative PCR FLU A (Negative); PCR FLU B Negative PCR FLU B (Negative); PCR RSV Negative PCR RSV (Negative)
[2023-02-02 01:32] LABS: SARS PCR* Negative SARS-CoV-2 (Negative)
[2023-02-02 01:43] LABS: RBC Urine 0-2 (0-2); Squamous Epithelial Cell Urine Few (None-Few); WBC Urine 0-2 (0-5)
== END 2023-02-02 02:45 | disposition home or self-care (01) ==
PROVIDERS: Emergency Provider Family Medicine; PCP Family Medicine
DX: M35.3 Polymyalgia rheumatica (principal); R73.9 Hyperglycemia, unspecified
CPT/HCPCS: 36415; 70450; 80048; 80076; 81001; 82077; 83605; 83735; 83880; 84484; 85025; 85379; 86140; 87631; 93005; 99284; 99285; J7030

== ENCOUNTER 2023-02-08 08:15 | Outpatient (RCR) | payer MEDICARE, SELFPAY ==
--- NOTE | 2022-12-07 12:23 | PT.OPEX ---
PT [facility] PT [facility] Outpatient Eval Start: 12/07/22 07:14 Freq: Status: Active Protocol: Document 12/07/22 07:19 MLS (Rec: 12/07/22 12:20 MLS [id number]) E-signed By Tamara Lawrence DPT Physical Therapy Outpatient Evaluation Insurance Information Recert Due Date 03/06/23 Insurance Name Medicare B Medical Diagnosis M54.16 lumbar radiculopathy M51.36 DDD M70.61, M70.62 Trochanteric bursitis of both hips M48.062 Spinal stenosis of lumbar region Treating Diagnosis M54.50 LBP M62.81 Generalized muscle weakness R26.2 Difficulty in walking M25.551 Pain in right hip M25.552 Pain in left hip Referring MD Brayden Velázquez MD Subjective Subjective Patient is an 82 year old male who presents to physical therapy with signs and symptoms consistent with bilateral hip and low back pain. He states that he has had back pain on and off for a long time. He also reports having severe stiffness throughout his body and weakness in his legs. He states that in September he had two injections in his lumbar spine, after having a severe flare up in his pain. He reports that the injections helped significantly and relieved some of his pain. He states that he is getting two additional injections today in both of his hips. A few years ago, he had severe lumbar pain, with pain radiating into his leg and he had surgery and has been much better since. He states that up until a few months ago, he was biking and hiking regularly. He reports that he has significantly declined over the past few months. He states that he and his returned from a trip on November 14, and since then he has noticed a significant increase in pain throughout his body and weakness in his legs. He states that he was diagnosed with Polymalgia Rheumatica and was on prednisone for the month of August. He states that currently he can walk about 3 blocks on a good day. He reports that his pain, stiffness and weakness are worse every morning from 6- 10am. He states that he does get some bilateral swelling in his lower extremities and wears compression stockings to help with this. He states that up until July, he was doing strengthening for his legs. He states that he stopped doing his exercises due to pain and weakness in his legs getting worse. He also reports that some days he will get numbness, tingling and pain into both of his arms . He states that sometimes ice, heat and movement help with the pain. He reports that if he does too much movement or walking, he has more pain and stiffness. He states that sometimes her feelslike he cant stand up straight and takes a few very short, shuffling steps to get moving. He also reports that he feels like he has had some cognitive changes. He reports that last week he couldn't get out of bed. He states that when he sleeps, he is at about a 20% incline and doesn't lay flat. He reports that he uses walking sticks at times. He states that he finds himself leaning forward and shuffling his gait. He lives in a one level condo with a walk in shower with a couple inch lip. He reports that he has noticed some mild trembling with his upper extremities at times. Pain Comments Today: 2/10 on a 0-10 pain scale with 10 = extreme pain 3/10 in hips At its worst: 7-8/10 At its best: /10 Current Work Status Retired Preferred Name Susy Hernandez is Precautions Treatment Precautions/Contraindications Pacemaker since March Objective Other/Pertinent Objective Posture Assessment: Decreased lordosis LUMBAR ROM Flexion: 25% repeated flexion : unable to perform secondary to pain Extension: 10% repeated ext: unable to perform secondary to pain Right Sidebend: 25% Left Sidebend: 10% Right Rotation:25% Left Rotation: 25% Shoulder AROM grossly tested and limited to 90 degrees in flexion and abduction secondary to stiffness and pain LE MMT Hip flexion: R 3+/5 L 3+/5 Hip Extension: R 3+/5 L 3+/5 Hip abduction: R 3+/5 L 3+/5 Knee extension: 3+R /5 L 3+/5 Knee Flexion: R 3+/5 L 3+/5 heel walk: unable to perform toe walk: unable to perform JOINT MOBILITY/PALPATION Tenderness to palpation of bilateral QL, ES and piriformis SPECIAL TESTS -Single leg stance: Attempted position, unable to hold -Slump test: positive bilaterally for pain -Straight leg raise: Unable to get supine on table -Crossed straight leg raise: Unable to get supine on table SI/HIP Unable to get supine on table for any hip testing today secondary to extreme pain Functional Test Performed & Score 25/50 Modified Oswestry Low Back Pain Que TUG 20 seconds 2 min 30 seconds 220 feet 5 sit to stands- 30 seconds [facility] Assessment Assessment/Impression Pt is an 82 year old male who presents with concerns of low back pain, generalized weakness, shuffling gait and overall stiffness. Patient also has notable objective findings including limited ROM , impaired balance, and decreased strength that likely contributing to the problem. Patient is a good candidate for skilled therapy to target deficits described above. Skilled PT intervention is necessary for use of therapeutic exercise manual therapy, neuromuscular re- education, gait training, and therapeutic activity. Functional impairments include difficulty with walking, standing, hiking, biking, moving around his home and exercising. See appropriate sections of PT eval for complete list of goals and POC . D/C plan and criteria is for pt to achieve the goals as listed below or until max rehab potential is met. Pt was agreeable with plan of care and goals established Plan of Care Rehabilitation Potential Fair Rehabilitation Potential Comments Patient has a lot functional limitations that have come on over the past 3 months including severe low back and hip pain, severe stiffness throughout several joints, decreased AROM, decreased strength and a shuffling gait pattern noted at times. Physical Therapy Goals ST. Patient [id number] degrees of shoulder flexion for ability to reach overhead into a high shelf, dress and bathe without limitations. 2. Patient is able to sleep without waking more than one time due to pain in a 6-8 hour time frame. 3. Pt will demonstrate independence in performance of home exercise program with the use of video and/or handouts in order to optimize functional mobility and reduce risk for re-injury. 4. Patient will be able to sit for up to one hour without pain. LT. Patient will be able to bend and lift household items from the floor to shoulder height to perform ADLs without pain. 6. Patient will be able to walk around the block without pain. 7. Patient will report pain levels <2/10 with all activities in order to improve functional mobility at home, work and during functional leisure activities. 8. Patient will be able to hike at the [place] with his walking sticks for 60 minutes. Coordination/Communication With Referral Source Treatment Plan/Direct Interventions Gait Training,Manual Therapy, Neuromuscular Re-ed, Therapeutic Activities, Therapeutic Exercises Patient Will Be Discharged From Therapy Independently Progressing Evaluation Billing Untimed Code Treatment Minutes 50 Complexity Moderate Certification Information Physician Comment/Change : Physician NPI Number #
== END 2023-03-29 15:14 | disposition home or self-care (01) ==
PROVIDERS: PCP Family Medicine; Visit Provider Family Medicine
DX: M54.16 Radiculopathy, lumbar region (principal); M70.61 Trochanteric bursitis, right hip; Z51.89 Encounter for other specified aftercare
CPT/HCPCS: 97110; 97162; 97530

== ENCOUNTER 2023-05-30 03:10 | Emergency (ER) | payer MEDICARE, SELFPAY ==
[2023-05-30 03:11] VITALS: BP 147/74; PULSE 73; RESP 22; TEMP 38.1; O2SAT 96; BMI 31.3
--- NOTE | 2023-05-30 03:21 | ED.FEVER ---
HPI - Fever General Time Seen by Provider: 03:21 Date Seen: 05/30/23 Chief Complaint: Fever Stated Complaint: Fever Time Seen by Provider: 05/30/23 03:21 Source: patient, RN notes reviewed and old records reviewed Mode of arrival: ambulatory Limitations: no limitations History of Present Illness HPI Narrative: David is a very pleasant 83-year-old gentleman with a history of polymyalgia rheumatica currently on prednisone 20 mg daily, history of atrial fibrillation with pacemaker currently on Eliquis as well as diabetes who comes to the emergency room with complaints of fever and fatigue. Patient notes that he awoke on WednesdayMay 28 yesterday not feeling well and decided to go back to sleep. By noon he felt well rested and was able to work in the shop yesterday afternoon. 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 He notes however that he was not feeling well and was noted to have a fever up to 102. His states that he was coughing and he does acknowledge some congestion in his nose. Denies any chest pain vomiting diarrhea. Has not had any dysuria. Denies a sore throat or ear pain. David in his have just return from [place] and then flew back and returned on WednesdayMay 24. During that month trip away he did have 3 days of coughing without fever that did resolve. No known ill contacts in the group of 16 with which they were traveling. Patient notes that he has been very thirsty and drinking a lot of water this evening. He endorses increased urination as well and his notes incontinence. Related Data Home Medications Medication Instructions Recorded Confirmed apixaban 5 mg tablet (Eliquis) 5 mg PO Q12H 02/15/22 03/20/22 blood sugar diagnostic (True 02/15/22 02/15/22 Metrix Glucose Test Strip) glipizide 2.5 mg tablet, extended 2.5 mg PO DAILY 02/15/22 03/20/22 release 24 hr lisinopril 20 1 tab PO DAILY 02/15/22 03/20/22 mg-hydrochlorothiazide 25 mg tablet metformin 500 mg tablet,extended 2,000 mg PO DAILY 02/15/22 03/20/22 release 24 hr Previous Rx's Medication Instructions Recorded nirmatrelvir 300 mg (150 mg See Rx Instructions PO .COMPLEX 05/30/23 x2)-ritonavir 100 mg tablet,dose #30 ea pack (Paxlovid) Allergies Allergy/AdvReac Type Severity Reaction Status Date / Time No Known Drug Allergies Allergy Verified 03/20/22 08:09 Review of Systems Status of ROS Reports: 10 or more systems reviewed and unremarkable except as noted in History and below Const Reports: fever, chills and fatigue Eyes Denies: change in vision ENMT Reports: nasal discharge and nasal congestion; Denies: throat pain, neck pain, throat swelling or difficulty swallowing Cardio Denies: chest pain, palpitations, swelling of feet/ankles, lightheadedness or shortness of breath with exertion Resp Reports: cough; Denies: shortness of breath or wheezing GI Denies: abdominal pain, nausea, vomiting, diarrhea or difficulty swallowing Denies: painful urination or urinary frequency Musculo Denies: neck pain Neuro Denies: headache Endo Reports: excessive thirst and fatigue Allergy/Immuno Denies: throat swelling or wheezing PFSH PFSH Social History Smoking Status: Former smoker Do you use any of these nicotine containing products: None Second hand tobacco smoke exposure: Yes How often do you have a drink containing alcohol: 4 or more times a week How many standard drinks containing alcohol do you have on a typical day: 1 or 2 AUDIT-C Alcohol total score: 4 Non-prescribed substance use: denies use Exam Const Vital Signs, click to edit/add: Vital Signs - 24 hr 05/30/23 03:11 Temperature 100.5 F H Pulse Rate [Left Pulse Oximeter] 73 Respiratory Rate 22 Blood Pressure [Right Upper Arm] 147/74 H Pulse Oximetry 96 Oxygen Delivery Method Room Air Course Course ED Course: Differential diagnosis is quite broad and includes pneumonia, COVID, influenza, RSV, urinary tract infection, other viral illness. At this time will place IV, check CBC comprehensive panel CRP urinalysis. An EKG has already been done by the nursing staff and shows atrial fibrillation rate controlled. Patient has known pacemaker. Chest x-ray is also ordered. Reevaluation(s) Reevaluation #1: Has been resting comfortably. Vital Signs Vital signs: Initial Vital Signs Temperature 100.5 F H 05/30/23 03:11 Temperature Source Oral 05/30/23 03:11 Pulse Rate 73 03/31/24 03:11 Pulse Rhythm Regular 05/30/23 03:11 Respiratory Rate 22 05/30/23 03:11 Blood Pressure 147/74 H 05/30/23 03:11 Blood Pressure Mean 98 05/30/23 03:11 Blood Pressure Position Sitting 05/30/23 03:11 Pulse Oximetry 96 05/30/23 03:11 Oxygen Delivery Method Room Air 05/30/23 03:11 Vital Signs Temperature 100.5 F H 05/30/23 03:11 Pulse Rate 73 05/30/23 03:11 Respiratory Rate 22 05/30/23 03:11 Blood Pressure 147/74 H 05/30/23 03:11 Pulse Oximetry 96 05/30/23 03:11 Oxygen Delivery Method Room Air 05/30/23 03:11 Temperature 100.5 F H 05/30/23 03:11 Pulse Rate 73 05/30/23 03:11 Respiratory Rate 22 05/30/23 03:11 Blood Pressure 147/74 H 05/30/23 03:11 Pulse Oximetry 96 05/30/23 03:11 Oxygen Delivery Method Room Air 05/30/23 03:11 MDM - Fever MDM Narrative Medical decision making narrative: 1. [id number] has COVID likely secondary to recent travel from [place]. Chest x-ray reassuring as are oxygen levels which are 96% on room air. Patient noted to have normal white count at this time. No complaints of chest pain or difficulty breathing nor any nausea or vomiting. Patient is a candidate for packs lobe it with modification of his apixaban dosing. Review of all of his medications with the [facility] interaction tool done in the emergency room. Apixaban will need to be reduced to 2.5 mg b.i.d. instead of his current dosing of 5 mg b.i.d.. Also note that is GFR is 85 and therefore no reduction in dosing needs to be done. I did discuss this information with the patient. Did discuss risks of Paxlovid in terms of renal function and drug interactions. 2. Disposition-home at this time. Recommend Tylenol as needed for fever or discomfort. Recommend pushing fluids. Return to the emergency room for worsening symptoms including vomiting with dehydration, difficulty breathing, confusion and as needed. There are challenges obtaining prescriptions today which is Easter Wednesday. I did change patient's preferred pharmacy to [facility] as their own pharmacy [facility] is most likely closed today. I cannot promise that [facility]'s will be open. I also presented them with a hand written prescription for Paxlovid in the event that they would need to travel to [facility] or [facility] to find and open pharmacy. I recommend starting Paxlovid at earliest possible time. Medical Records Attestation: I reviewed the patient's medical records. Lab Data Attestation: I reviewed the patient's lab results. Labs: Lab Results 05/30/23 05/30/23 Range/Units 03:20 03:45 WBC 5.92 (4.50-11.00) K/uL RBC 3.96 L (4.30-5.90) m/uL Hgb 12.2 L (13.5-17.5) gm/dL Hct 36.6 L (37.0-53.0) % MCV 92 (80-100) fL MCH 31 (26-34) pg MCHC 33 (32-36) gm/dL RDW Coeff of Ferny 12.8 (11.5-15.5) % Plt Count 140 (140-440) K/uL Neut % (Auto) 77.7 H (42.0-72.0) % Lymph % (Auto) 9.1 L (20-44) % Ransom % (Auto) 12.2 H (0.0-11.0) % Eos % (Auto) 0.5 (0.0-7.0) % Baso % (Auto) 0.2 (0.0-3.0) % Neut # (Auto) 4.60 (1.7-7.0) K/uL Lymph # (Auto) 0.50 L (0.90-2.90) K/uL Ransom # (Auto) 0.70 (0.00-0.90) K/UL Eos # (Auto) 0.03 (0.00-0.50) K/uL Baso # (Auto) 0.01 (0.00-0.30) K/uL Abs Immat Gran (auto) 0.02 (0.00-0.30) K/uL Imm/Tot Granulo (auto) 0.3 % Sodium 136 (135-149) mmol/L Potassium 3.8 (3.6-5.1) mmol/L Chloride 107 (96-114) mmol/L Carbon Dioxide 23 (20-32) mmol/L Anion Gap 6 L (7-15) mEq/L BUN 24 (7-30) mg/dL Creatinine 0.9 (0.5-1.5) mg/dL Estimated Creat Clear 54.01 Estimated GFR 84 ml/min Glucose 139 H (60-115) mg/dL Calcium 9.2 (8.4-10.6) mg/dL Total Bilirubin 1.5 (0.1-1.5) mg/dL AST 29 (12-35) U/L ALT 25 (4-50) U/L Alkaline Phosphatase 68 (40-150) U/L C-Reactive Protein 2.8 H (0.5-1.0) mg/dL Total Protein 6.2 (6.0-8.3) g/dL Albumin 3.6 (3.3-5.0) g/dL SARS-CoV-2 (PCR) POSITIVE SARS-CoV-2 A (Negative) Influenza Type A (PCR) Negative PCR FLU A (Negative) Influenza Type B (PCR) Negative PCR FLU B (Negative) RSV (PCR) Negative PCR RSV (Negative) Imaging Data Chest x-ray: Attestation: I have reviewed the pertinent imaging results. My impression: No obvious large infiltrates Radiologist's impression: Right costophrenic angle is excluded from the field of view. Left subclavian dual-chamber pacemaker leads overlie the right atrium and right ventricle. Top-normal size of the cardiomediastinal silhouette. Normal pulmonary vasculature. Lungs are well inflated. No focal consolidation. No pleural effusion or pneumothorax. No acute osseous abnormality identified. Impression: No acute cardiopulmonary abnormality identified. ECG Data Attestation: I personally reviewed and interpreted this ECG as follows: Discharge Plan Discharge Clinical Impression: COVID Patient Disposition: Home, Self-Care Condition: Unchanged Additional Instructions: I suggest you start Paxlovid which is a combination of 2 antiviral medications for the treatment of COVID. You will need to decrease your Eliquis dosing to 2.5 mg twice a day. A hand written prescription for Paxlovid is available to you in the event that your pharmacy is closed tomorrow. You will need to look around for open pharmacies. Increase fluids. Tylenol as needed for fever or discomfort Return for difficulty breathing, vomiting and dehydration and as needed. Consider contacting your doctor at your next appointment for a phone visit. Prescriptions: New Paxlovid 300 mg (150 mg x 2)-100 mg tablets,dose pack See Rx Instructions .ROUTE .COMPLEX Qty: 30 0RF Rx Instructions: take TWO 150 mg tablets of nirmatrelvir with ONE 100 mg tablet of ritonavir twice daily for 5 days No Action (DME) True Metrix Glucose Test Strip Strip MISCELLANEOUS Patient Comments: TEST 2 TIMES PER WEEK. glipizide 2.5 mg tablet extended release 24hr 2.5 mg PO DAILY Patient Comments: TAKE 1 TABLET (2.5 MG) BY MOUTH ONCE DAILY BEFORE A MEAL. lisinopril-hydrochlorothiazide 20-25 mg tablet 1 tab PO DAILY Patient Comments: TAKE ONE TABLET BY MOUTH ONCE DAILY metformin 500 mg tablet extended release 24 hr 2,000 mg PO DAILY Patient Comments: TAKE 4 TABLETS (2,000 MG) BY MOUTH ONCE DAILY WITH EVENING MEAL. Eliquis 5 mg tablet 5 mg PO Q12H Patient Comments: TAKE 1 TABLET (5 MG) BY MOUTH TWO TIMES DAILY. Follow Up/Referrals: Bari Toscano MD [Primary Care Provider] - Stand Alone Forms: [facility] Info Instructions
--- NOTE | 2023-05-30 03:42 | XR_ITS ---
Patient: MAC YARBROUGH Facility:?[facility] Patient ID:?[id number] Site Patient ID:?[id number]. Site :?[id number] Study:?XRay-Chest AP PORTABLE-05/30/2023 4:18:15 AM Ordering Physician:Mireya Dennis Final Report: Indication: Fever. Technique: One view(s) of the chest. Comparison: 01/29/2015. Findings: Right costophrenic angle is excluded from the field of view. Left subclavian dual-chamber pacemaker leads overlie the right atrium and right ventricle. Top- normal size of the cardiomediastinal silhouette. Normal pulmonary vasculature. Lungs are well inflated. No focal consolidation. No pleural effusion or pneumothorax. No acute osseous abnormality identified. Impression: No acute cardiopulmonary abnormality identified. Dictated by Keyanna Baez MD @ 05/30/2023 4:33:21 AM Signed by:?Keyanna Baez MD @05/30/2023 4:33:21 AM (Electronic Signature)
[2023-05-30 03:56] LABS: Basophils Absolute Auto 0.01 K/uL (0.00-0.30); Basophils Percent Auto 0.2 % (0.0-3.0); Eosinophils Absolute Auto 0.03 K/uL (0.00-0.50); Eosinophils Percent Auto 0.5 % (0.0-7.0); Hematocrit 36.6 % (37.0-53.0); Hemoglobin* 12.2 gm/dL (13.5-17.5); Immature Granulocytes Abs Auto 0.02 K/uL (0.00-0.30); Immature Granulocytes Pct Auto 0.3 %; Lymphocytes Percent Auto 9.1 % (20-44); Mean Corpuscular HGB Conc 33 gm/dL (32-36); Mean Corpuscular Hemoglobin 31 pg (26-34); Mean Corpuscular Volume 92 fL (80-100); Monocytes Percent Auto 12.2 % (0.0-11.0); Neutrophils Percent Auto 77.7 % (42.0-72.0); Platelet Count* 140 K/uL (140-440); RDW Coefficient of Variation % 12.8 % (11.5-15.5); Red Blood Count 3.96 m/uL (4.30-5.90); White Blood Count* 5.92 K/uL (4.50-11.00)
[2023-05-30 03:59] LABS: Slide Review Reflex No
[2023-05-30 04:02] LABS: PCR FLU A Negative PCR FLU A (Negative); PCR FLU B Negative PCR FLU B (Negative); PCR RSV Negative PCR RSV (Negative); SARS PCR* POSITIVE SARS-CoV-2 (Negative)
[2023-05-30 04:09] LABS: Albumin* 3.6 g/dL (3.3-5.0); Chloride* 107 mmol/L (96-114)
[2023-05-30 04:10] LABS: Potassium* 3.8 mmol/L (3.6-5.1); Sodium* 136 mmol/L (135-149)
[2023-05-30 04:12] LABS: Alkaline Phosphatase* 68 U/L (40-150); Anion Gap 6 mEq/L (7-15); Aspartate Amino Transferase* 29 U/L (12-35); Bilirubin Total* 1.5 mg/dL (0.1-1.5); Carbon Dioxide* 23 mmol/L (20-32); Creatinine* 0.9 mg/dL (0.5-1.5); Est. Creatinine Clearance* 54.01; Estimated Glomerular Filt Rate 84 ml/min; Total Protein* 6.2 g/dL (6.0-8.3)
[2023-05-30 04:13] LABS: Alanine Aminotransferase* 25 U/L (4-50); Blood Urea Nitrogen* 24 mg/dL (7-30); Calcium* 9.2 mg/dL (8.4-10.6); Glucose* 139 mg/dL (60-115)
[2023-05-30 04:15] LABS: C Reactive Protein* 2.8 mg/dL (0.5-1.0)
[2023-05-30 05:00] VITALS: BP 148/72; PULSE 74; RESP 18; TEMP 37.8; O2SAT 96
== END 2023-05-30 05:22 | disposition home or self-care (01) ==
PROVIDERS: Emergency Provider Family Medicine; PCP Family Medicine
DX: U07.1 COVID-19 (principal)
CPT/HCPCS: 36415; 71045; 80053; 81001; 85025; 86140; 87631; 99283; 99284

== ENCOUNTER 2023-07-27 15:09 | Outpatient (CLI) | payer MEDICARE, SELFPAY ==
--- OUTSIDE RECORDS SUMMARY | 2023-07-27 15:15 | XMS_ITS | Clinical Summary ---
Author Organization [facility] Address [address], [place] [address] Care Team Providers Care Digital Tech Name Role Phone Unavailable Primary Care Provider Unavailabl e Source Comments You are receiving this document as you are listed as the primary care provider,follow-up provider, or the patient has been referred to you for consultation.This is in compliance with the Medicare andMedicaid EHR Incentive Program,which states Providers who transition their patient to another setting of careor provider of care or refers their patient to another provider of care shouldprovide summary care record for each transition of care or referral. [facility] Allergies No known active allergies Medications Medication Sig Dispensed Refills Start Date End Date Status metFORMIN (GLUCOPHAGE) 500 MG tablet Take 500 mg by mouth three times a day. Active Social History Tobacco Use Types Packs/Day Years Used Date Smoking Tobacco: Never Smokeless Tobacco: Never Sex and Gender Information Value Date Recorded Sex Assigned at Not on file Gender Identity Not on file Sexual Orientation Not on file Last Filed Vital Signs Vital Sign Reading Time Taken Comments Blood Pressure 156/79 12/05/2017 3:52 PM CDT Pulse 68 12/05/2017 3:52 PM CDT Temperature 36.5 ??C (97.7 ??F) 12/05/2017 3:52 PM CD T Respiratory Rate 20 12/05/2017 3:52 PM CDT Oxygen Saturation 98% 12/05/2017 3:52 PM CDT Inhaled Oxygen Concentration - - Weight - - Height - - Body Mass Index - - Plan of Treatment Health Maintenance Due Date Last Done Comments Medicare Annual Wellness Visit 1940 DTaP/Tdap/Td (1 - Tdap) 1957 Zoster/Shingles (1 of 2) 02/21/1988 Pneumococcal 65+ Yrs (1 - PCV) 2003 COVID-19 Vaccine (1 - 2022-2 4 season) 2022 Influenza (Season Ended) 2023 HepA Aged Out No longer eligi ble based on patient's age to complete this topic HepB Aged Out No longer eligi ble based on patient's age to complete this topic Hib Aged Out No longer eligi ble based on patient's age to complete this topic IPV (Polio) Aged Out No longer eligi ble based on patient's age to complete this topic MCV4 Aged Out No longer eligi ble based on patient's age to complete this topic
--- OUTSIDE RECORDS SUMMARY | 2023-07-27 15:15 | XMS_ITS | Data Portability ---
Author Organization [place] [facility] [place] [facility], [facility] Address [address] [facility], [facility] [address] [place] [address] Care Team Providers Care Boning Room Worker Name Role Phone LINDSAY SANFORD Referring Provider [phone] Assessment No assessment recorded. Plan of Treatment Reminders Order Date Submit Date Provider Last Modified By Organization Details Last Modified Time Details Appointments PSA 10 2023 09:00A M [facility] Not available Not available Not available ESTABLISH ED 2023 09:20A M Louis Cook MD Not available Not available Not available Lab PSA, total, serum or plasma 2023 024 [email or web address] [facility], [address], [place], [address], 04/26/2023 16:13:19 PSA, total, serum or plasma 2022 023 [email or web address] [id number] [facility], [address], [place], [address], 10/05/2022 08:59:41 Referral None recorded. Procedures None recorded. Surgeries None recorded. Imaging None recorded. Medication Orders None recorded. Patient TargetsNo targets recorded. Patient InstructionsNo instructions recorded. Reason for Referral None Reported. Results Created Date Observation Date Name Description Value Unit Range Abnormal Flag LastModifiedBy Organization Detail LastModifiedTime Result Notes None recorded. Procedures Surgical History Date Name Laterality Status Provider Name and Address Organization Details Recorded Time 3 Heart Surgery completed Louis Cook MD [address] [facility],[address], [place], [address], [facility] 09/28/2022 16:37:35 procedure on spine completed Louis Cook MD [address] [facility],[address], [place], [address], [facility] 09/28/2022 16:37:23 Imaging Results None recorded. Procedure Notes None recorded. Medical Equipment None Reported. Allergies No known drug allergies Medications Name Sig Start Date Stop Date Status Note LastModified by Organization Details LastModified Time prednisone 10 mg tablet TAKE ONE TABLET BY MOUTH DAILY active Not Available Not Available No t Available azithromyci n 250 mg tablet TWO TABLETS BY MOUTH THE FIRST DAY, ONE DAILY DAYS 2-5 09/28 completed Not Available Not Available Not Available prednisone 20 mg tablet TAKE 1 TABLET (20 MG) BY MOUTH ONCE DAILY WITH A MEAL. 04/26 completed Not Available Not Available Not Available prednisone 5 mg tablet TAKE 1-3 TABLETS BY MOUTH DAILY DIRECTED IN ADDITION TO THE 10MG PILLS active Not Available Not Available No t Available glipizide ER 5 mg tablet, extended release 24 hr TAKE 2 TABLETS (10 MG) BY MOUTH ONCE DAILY BEFORE A MEAL. active Not Available Not Available No t Available ciprofloxac in 250 mg tablet TAKE 2 TABLETS (500 MG) BY MOUTH TWO TIMES DAILY FOR 10 DAYS. 09/28 completed Not Available Not Available Not Available triamcinolo ne acetonide 0.1 % topical cream APPLY TOPICALLY TO AFFECTED AREA(S) THREE TIMES DAILY. active Not Available Not Available No t Available tamsulosin 0.4 mg capsule TAKE 1 CAPSULE (0.4 MG) BY MOUTH ONCE DAILY AFTER A MEAL. active Not Available Not Available No t Available glipizide ER 2.5 mg tablet, extended release 24 hr TAKE 2 TABLETS (5 MG) BY MOUTH ONCE DAILY BEFORE A MEAL. active Not Available Not Available No t Available gabapentin 300 mg capsule TAKE 1 CAPSULE (300 MG) BY MOUTH AT BEDTIME. active Not Available Not Available No t Available lisinopril 20 mg-hydrochl orothiazide 25 mg tablet TAKE ONE TABLET BY MOUTH ONCE DAILY active Not Available Not Available No t Available metformin ER 500 mg tablet,exte nded release 24 hr TAKE 4 TABLETS (2,000 MG) BY MOUTH ONCE DAILY WITH EVENING MEAL. active Not Available Not Available No t Available amoxicillin 875 mg-potassiu m clavulanate 125 mg tablet TAKE 1 TABLET BY MOUTH TWO TIMES DAILY WITH MEALS FOR 10 DAYS. 04/26 completed Not Available Not Available Not Available oxycodone 5 mg tablet TAKE ONE TABLET BY MOUTH TWICE A DAY NEEDED 04/26 completed Not Available Not Available Not Available ciprofloxac in 0.3 %-dexametha sone 0.1 % ear drops,suspe nsion PLACE 4 DROPS INTO BOTH EARS TWO TIMES DAILY. 09/28 completed Not Available Not Available Not Available Eliquis 5 mg tablet TAKE 1 TABLET (5 MG) BY MOUTH TWO TIMES DAILY. active Not Available Not Available No t Available True Metrix Glucose Test Strip TEST 2 TIMES PER WEEK. active Not Available Not Available No t Available Vitals Date Recorded Body height Body mass index (BMI) Body weight Provider Name and Address Organization Details Last Updated DateTime 09/28/2022 175.26 cm 31 kg/m2 93023.4 g Louis Cook MD [address] [place] [address],[address], [address] 09/28/2022 16:34:03 Date Recorded Body height Body mass index (BMI) Body weight Provider Name and Address Organization Details Last Updated DateTime 04/26/2023 175.26 cm 31 kg/m2 41266.4 g Louis Cook MD [address] [place] [address],[address], [id number] [place] [address] [facility] 04/26/2023 10:59:25 Social History Question Answer Notes LastModified by Organizat ion Details LastModified Time Tobacco Smoking Status Former Smoker Louis Cook MD [address] [place] [address],[address], [address], [facility] 09/28/2022 16:37:00 What Is Your Level Of Alcohol Consumption? Moderate Information not available 09/28/2022 How Many Times Per Week Do You Consume Alcohol? 5-7 Times Per Week Information not available 09/28/2022 What Is Your Level Of Caffeine Consumption? Moderate Information not available 09/28/2022 When Did You Quit Smoking? 16+yearssince lastcigarette Information not available 09/28/2022 What Was The Date Of Your Most Recent Tobacco Screening? 04/26/2023 Information not available 04/26/2023 Have You Ever Been Counseled For Unhealthy Alcohol Use? No Information not available 04/26/2023 Do You Use Any Illicit Or Recreational Drugs? No Information not available 04/26/2023 Has Tobacco Cessation Counseling Been Provided? No Information not available 04/26/2023 How Many Days In The Past Year Have You Consumed 5 Or More Drinks? 0 Information no t available 04/26/2023 Sex: Male Functional Status None recorded. Mental Status None recorded. Family History Relationship Description Onset Age of this Age Resolved Age Notes Mother Family history of cancer Medical History Condition Response Sexually Transmitted Infection N Diabetes Y Other Y Bleeding Disorder Y High Blood Pressure Y Kidney Stones N Cancer Y Lung Disease N Depression N High Cholesterol N Heart Disease Y Immunizations Vaccine Type Date Status Provider Name and Address Organization Details Recorded Time influenza, high-dose, quadrivalent 01/06/2023 completed Louis Cook MD [address] [place] [address],[address], [address], [facility] 04/26/2023 10:59:30 RSV, recombinant, protein subunit RSVpreF, adjuvant reconstituted, 0.5 mL, PF 01/19/2023 completed Louis Cook MD [address] [place] [address],[address], [address], [facility] 04/26/2023 10:59:31 COVID-19, mRNA, LNP-S, PF, 50 mcg/0.5 mL 01/19/2023 completed Louis Cook MD [address] [place] [address],[address], [address], [facility] 04/26/2023 10:59:31 IPV 10/25/2001 completed Susana watson [facility] 01/25/2023 09:28:19 influenza, trivalent, adjuvanted 11/06/2016 completed Susana watson [facility] 01/25/2023 09:28:19 influenza, trivalent, adjuvanted 11/14/2018 completed Susana watson [facility] 01/25/2023 09:28:19 influenza, trivalent, adjuvanted 12/10/2017 completed Susana watson [facility] 01/25/2023 09:28:19 zoster recombinant 03/06/2019 completed Susana Al lar null, [facility] 01/25/2023 09:28:19 zoster recombinant 12/14/2018 completed Susana Al lar null, [facility] 01/25/2023 09:28:19 Influenza vaccine, quadrivalent, adjuvanted 11/10/2019 completed Susana Allar null, [facility] 01/25/2023 09:28:19 Influenza vaccine, quadrivalent, adjuvanted 11/10/2021 completed Susana Allar null, [facility] 01/25/2023 09:28:19 Influenza vaccine, quadrivalent, adjuvanted 12/09/2020 completed Susana Allar null, [facility] 01/25/2023 09:28:19 COVID-19, mRNA, LNP-S, PF, 100 mcg/0.5mL dose or 50 mcg/0.25mL dose 04/01/2020 completed Susana Allar null, [facility] 01/25/2023 09:28:19 COVID-19, mRNA, LNP-S, PF, 100 mcg/0.5mL dose or 50 mcg/0.25mL dose 04/29/2020 completed Susana Allar null, [facility] 01/25/2023 09:28:19 COVID-19, mRNA, LNP-S, PF, 100 mcg/0.5mL dose or 50 mcg/0.25mL dose 12/23/2020 completed Susana Allar null, [facility] 01/25/2023 09:28:19 Pneumococcal conjugate PCV20, polysaccharide [id number] conjugate, adjuvant, PF 03/27/2022 completed Susana Allar null, [facility] 01/25/2023 09:28:19 COVID-19, mRNA, LNP-S, PF, 30 mcg/0.3 mL dose, octavia-sucrose 06/11/2021 completed Susana Allar null, [facility] 01/25/2023 09:28:19 COVID-19, mRNA, LNP-S, bivalent, PF, 50 mcg/0.5 mL or 25mcg/0.25 mL dose 07/28/2022 completed Susana Allar null, [facility] 01/25/2023 09:28:19 COVID-19, mRNA, LNP-S, bivalent, PF, 50 mcg/0.5 mL or 25mcg/0.25 mL dose 11/10/2021 completed Susana Allar null, [facility] 01/25/2023 09:28:19 pneumococcal polysaccharide PPV23 08/03/1995 completed Susana Allar null, [facility] 01/25/2023 09:28:19 pneumococcal polysaccharide PPV23 12/03/2005 completed Susana Allar null, [facility] 01/25/2023 09:28:19 Tdap 05/09/2010 completed Sus[facility]ar null, [facility] 01/25/2023 09:28:19 Tdap 06/11/2020 completed Susana Allar null, [facility] 01/25/2023 09:28:19 Pneumococcal conjugate PCV 13 09/21/2014 completed Susana Allar null, [facility] 01/25/2023 09:28:19 yellow fever live 10/21/2001 completed Susana All ar null, [facility] 01/25/2023 09:28:19 yellow fever live 12/10/2010 completed Susana All ar null, [facility] 01/25/2023 09:28:19 zoster live 11/17/2006 completed Susana Allar null, [facility] 01/25/2023 09:28:19 Influenza, high dose seasonal 11/17/2013 completed Susana Allar null, [facility] 01/25/2023 09:28:19 Influenza, high dose seasonal 11/22/2015 completed Susana Allar null, [facility] 01/25/2023 09:28:19 Influenza, high dose seasonal 11/30/2014 completed Susana Allar null, [facility] 01/25/2023 09:28:19 Influenza, seasonal, injectable 11/24/2011 completed Susana Allar null, [facility] 01/25/2023 09:28:19 Influenza, seasonal, injectable 12/01/2010 completed Susana Allar null, [facility] 01/25/2023 09:28:19 Influenza, seasonal, injectable 12/03/2005 completed Susana Allar null, [facility] 01/25/2023 09:28:19 Influenza, seasonal, injectable 12/13/2003 completed Susana Allar null, [facility] 01/25/2023 09:28:19 Influenza, seasonal, injectable 12/14/2012 completed Susana Allar null, [facility] 01/25/2023 09:28:19 Influenza, seasonal, injectable 12/23/2009 completed Susana Allar null, [facility] 01/25/2023 09:28:19 Influenza, seasonal, injectable 12/29/2006 completed Susana Allar null, [facility] 01/25/2023 09:28:19 Influenza, seasonal, injectable 01/06/2005 completed Susana Allar null, [facility] 01/25/2023 09:28:19 Td (adult), 5 Lf tetanus toxoid, preservative free, adsorbed 11/25/2004 completed Susana Allar null, [facility] 01/25/2023 09:28:19 typhoid, ViCPs 09/23/2001 completed Susana Allar null, [facility] 01/25/2023 09:28:19 typhoid, ViCPs 12/17/2010 completed Susana Allar null, [facility] 01/25/2023 09:28:19 Hep A-Hep B 05/20/2001 completed Susana Allar null, [facility] 01/25/2023 09:28:19 Hep A-Hep B 06/21/2001 completed Susana Allar null, [facility] 01/25/2023 09:28:19 Hep A-Hep B 10/24/2001 completed Susana Allar null, [facility] 01/25/2023 09:28:19 Past Encounters Encounter ID Performer Location Encounter Start Date Encounter Closed Date Diagnosis/Indication Diagnosis SNOMED-CT Code [id number] Louis Cook MD [facility] [address] [place] [place] [address] 09/28/2022 16:22:42 10/02/2022 13:32:27 Malignant tumor of prostate [id number] Lower urin robbin tract symptoms due to benign prostatic hypertrophy [id number] Louis Cook MD [facility] [address] [place] [id number] 04/26/2023 10:54:45 04/26/2023 12:03:27 Malignant tumor of prostate [id number] Lower urin robbin tract symptoms due to benign prostatic hypertrophy [id number] Health Concerns Section Related Observation LastModified by Organization Detai ls LastModified Time None Recorded Concern Status LastModified by Organization Details LastModified Time None Recorded Advance Directives Directive None Recorded Payers Encounter Date Sequence Insurance Name Policy Number Policy Sam Covered Member ID Sam Member ID Guarantor Name 04/26/2023 1 [place] [id number] Enrike Coleman [id number] Enrike Coleman 09/28/2022 1 [place] [id number] Enrike Coleman [id number] Enrike Coleman Notes Date Note Type Note Provider Name and Address Organization Details Recorded Time 09/28/2022 text/html HPI Notes: 82 yo male with history of A.fib (on Eliqius), HTN, DM, memory loss, BPH, and Prostate cancer - T1c - [place] 3+3 = 6 - involving 1/10 cores (< 5%) on Left - TRUS bx (12/15/12) by Dr. Herrera - on expectant management. Prostate MRI (2014) revealed a PI-RADS 2 lesion - underwent MRI bx (10/31/14) of lesion at [facility] - benign. No family H/O prostate cancer. He is on Flomax 0.4 mg daily. 01/20/21- He presents for follow-up on prostate cancer. He denies trouble with urination. He voids every 2-4 hours during the day and 1-2x/night. He denies hesitancy, urgency, or dysuria. 09/28/22 - He presents for follow-up on Prostate cancer. He states his urination is better with Flomax. He voids every 2-4 hours during the day and 1-2x/night. He denies hesitancy, urgency, or dysuria. PSA - 6.85 (09/09/12) - 7.13 (09/26/12) - 6.52 (10/07/12) - 8.67 (09/12/14) - 7.44 (04/09/15) - 7.21 (10/16/15) - 7.64 (10/01/16) - 6.74 (03/10/17) - 6.91 (02/11/18) - 10.96 (11/14/18) - 7.53 (02/16/19) - 6.51 (03/07/20) - 9.21 (11/13/20) - 8.30 (06/09/21) - 11.80 (09/15/22) Louis Cook MD [address] [place] [address],[address], [place], [address] [place] [facility] 09/28/2022 17:22:15 04/26/2023 text/html HPI Notes: 83 yo male with history of A.fib (on Eliqius), HTN, DM, memory loss, BPH, and Prostate cancer - T1c - [place] 3+3 = 6 - involving 1/10 cores (< 5%) on Left - TRUS bx (12/15/12) by Dr. Herrera - on expectant management. Prostate MRI (2014) revealed a PI-RADS 2 lesion - underwent MRI bx (10/31/14) of lesion at [facility] - benign. No family H/O prostate cancer. He is on Flomax 0.4 mg daily. 01/20/21- He presents for follow-up on prostate cancer. He denies trouble with urination. He voids every 2-4 hours during the day and 1-2x/night. He denies hesitancy, urgency, or dysuria. 09/28/22 - He presents for follow-up on Prostate cancer. He states his urination is better with Flomax. He voids every 2-4 hours during the day and 1-2x/night. He denies hesitancy, urgency, or dysuria. 04/26/23 - He presents for follow-up on Prostate cancer. He voids every 2-4 hours during the day and 1-2x/night. - PSA - 9.08 (04/16/23) - decreased PSA - 6.85 (09/09/12) - 7.13 (09/26/12) - 6.52 (10/07/12) - 8.67 (09/12/14) - 7.44 (04/09/15) - 7.21 (10/16/15) - 7.64 (10/01/16) - 6.74 (03/10/17) - 6.91 (02/11/18) - 10.96 (11/14/18) - 7.53 (02/16/19) - 6.51 (03/07/20) - 9.21 (11/13/20) - 8.30 (06/09/21) - 11.80 (09/15/22) - 9.08 (04/16/23) Louis Cook MD [address] [place] [address],[address], [place], [address], [facility] 04/26/2023 11:10:14
--- OUTSIDE RECORDS SUMMARY | 2023-07-27 15:15 | XMS_ITS | Continuity of Care Document ---
Author Organization [facility] Address [address] [place] [address] Phone Care Team Providers Care Carpenter Rough Name Role Phone Pardeep Baird MD Unavailable [...] Surgical Assist Decompress Lumbar Spinalcord Seg Office/Outpatient Visit,[facility] 2012 Advance Directives Directive Yes / No Effective Date File Name No Information Encounters Encounter Description Practice Location Reason(s) For Visit Diagnoses Date Provider Providers Copied on Encounter [facility], [address], [place], [place], [id number], [place] tel:[phone] [facility] No Information 5 Brie Roberto. [facility] [place], On license of [facility] [address] [place] [address], [facility] [address], [place], [id number], [place]. tel:[phone] Office/Outpa tient Visit,Est, Low Z [facility] [place], [address] [place] [address], [place], [address], [place] tel:[phone] [facility] No Information 3 [address] [place] [address], [id number], [place]. tel:[phone] Referring Provider: Brayden Hart, [facility], [place], [address]. tel:[phone] Z [facility], [address] [place] [address], [facility], [place] tel:[phone] [facility] No Information 0 [address] [place] [address], [id number], [place]. tel:[phone] Referring Provider: Brayden Hart, [facility] Wendy [facility], [place], [address]. tel:[phone] Z [facility] [place], [address] [place] [address], [facility], [place] tel:[phone] [facility] No Information 0 [address] [place] [address], [id number], [place]. tel:[phone] Z [facility] [place], [address] [place] [address], [facility], [place] tel:[phone] [facility] No Information 0 3 Transfeldt Ensor. [facility] [place], [address] [place] [address], [id number], [place]. tel:[phone] Referring Provider: Brayden Hart, [facility] Wendy [facility], [place], [address]. tel:[phone] Office/Outpa tient Visit,[facility], [facility], [address] [place] [address], [facility], [place] tel:[phone] [facility] LUMBAGO 3 Transfeldt Ensor. [facility] [place], [address] [place] [address], [address], [id number], [place]. tel:[phone] Referring Provider: Brayden Hart, [place] [address], [place], [address]. tel:[phone] Family History Family Member Type Diagnosis Age At Onset No Information Payers Payer name Insurance type Covered constitution party ID Authoriza tion(s) No Information Social [...]
[2023-07-27 16:27] LABS: BF Clarity* Cloudy; BF Color Grossly Bloody; BF Total Volume* 6
[2023-07-27 16:28] LABS: Mononuclear WBC Body Fluid* 34 %; Polynuclear WBC Body Fluid* 66 %; RBC, Body Fluid* 6840 Cells/uL; WBC, Body Fluid* 808000 Cells/uL
== END 2023-07-27 15:10 | disposition home or self-care (01) ==
PROVIDERS: PCP Family Medicine; Visit Provider Orthopaedic Surgery Sports Medicine
DX: M25.422 Effusion, left elbow (principal)
CPT/HCPCS: 87070; 87075; 87186; 87205; 89051; 89060

== ENCOUNTER 2024-02-24 08:47 | Emergency (ER) | payer MEDICARE, SELFPAY ==
--- OUTSIDE RECORDS SUMMARY | 2024-02-24 08:49 | XMS_ITS | Data Portability ---
Author Organization [facility], [facility] Address [address] [place] [address] Care Team Providers Care Plasma Center Technician Name Role Phone LINDSAY SANFORD Referring Provider Assessment No assessment recorded. Plan of Treatment Reminders Order Date Submit Date Provider Last Modified By Organization Details Last Modified Time Details Appointments PSA 10 2024 09:00A M [facility] Not available Not available Not available ESTABL ISHED 2024 09:20A M Louis Cook MD Not available Not available Not available Lab PSA, total, serum or plasma 2022 023 [email or web address] [facility], [address], [place], [address], 10/05/2022 08:59:41 PSA, total, serum or plasma 2023 024 [email or web address] [facility], [address] , [place], [address], 04/26/2023 16:13:19 PSA, serum or plasma 2023 024 [email or web address] ro [facility], [address], [place], [address], 10/11/2023 10:19:21 PSA, total, serum or plasma 2023 024 [facility], [address], [place], [address], 11/16/2023 14:09:54 Referral None record ed. Procedures None record ed. Surgeries None record ed. Imaging None record ed. Medication Orders None record ed. Patient TargetsNo targets recorded. Patient InstructionsNo instructions recorded. Reason for Referral None Reported. Results Created Date Observation Date Name Description Value Unit Range Abnormal Flag Note LastModifiedBy Organization Detail LastModifiedTime 10/11/19 24 10/11/2023 PSA, serum or plasm a PSA 10.5ng /mL 0-4.0 NG/mL Not Available [facility] [address], [place], [address], 10/05/2023 17:03:38 Result Notes None recorded. Procedures Surgical History Date Name Laterality Status Provider Name and Address Organization Details Recorded Time 4 Blood Draw/HALAL MEAT PACKER/PSA RESULTS completed Carlos Enrique falcon [facility] 10/11/2023 10:18:27 3 Heart Surgery completed Louis Cook MD [address] [place] [address], [phone], [facility] 09/28/2022 16:37:35 procedure on spine completed Louis Cook MD [address] [place] [address], [phone] [place] [address] [facility]rolog 09/28/2022 16:37:23 Imaging Results None recorded. Procedure Notes None recorded. Medical Equipment None Reported. Allergies No known drug allergies Medications Name Sig Start Date Stop Date Status Note LastModified by Organization Details LastModified Time prednisone 10 mg tablet TAKE 1-2 TABLETS (10-20 MG) BY MOUTH ONCE DAILY WITH A MEAL. DIRECTED active Not Available Not Available No t [...] mg tablet, extended release 24 hr TAKE 3 TABLETS (15 MG) BY MOUTH ONCE DAILY BEFORE A [...] 20 mg-hydrochl orothiazide 25 mg tablet TAKE 1 TABLET BY MOUTH ONCE DAILY. active Not Available Not Available No [...] completed Not Available Not Available Not Available trospium 20 mg tablet TAKE ONE TABLET BY MOUTH DAILY active Not Available Not Available No t Available Eliquis 5 mg tablet TAKE 1 TABLET (5 MG) BY MOUTH TWO TIMES DAILY. active Not Available Not Available No t Available True Metrix Glucose Test Strip TEST 2 TIMES PER WEEK. active Not Available Not Available No t Available Paxlovid 300 mg (150 mg x 2)-100 mg tablets in a dose pack TK 2 NIRMATREL VIR TS AND 1 RITONAVIR T TOGETHER PO BID FOR 5 DAYS active Not Available Not Available No t Available Vitals Date Recorded Body height Body mass index (BMI) Body weight Provider Name and Address Organization Details Last Updated DateTime 09/28/2022 175.26 cm 31 kg/m2 89229.4 g Louis Cook MD [address] [place] [address],[address] [address], [facility] 09/28/2022 16:34:03 Date Recorded Body height Body mass index (BMI) Body weight Provider Name and Address Organization Details Last Updated DateTime 04/26/2023 175.26 cm 31 kg/m2 37302.4 g oLuis Cook MD [address] [place] [address],[address] [address], [facility] 04/26/2023 10:59:25 Date Recorded Body height Body mass index (BMI) Body weight Provider Name and Address Organization Details Last Updated DateTime 10/11/2023 175.26 cm 31 kg/m2 76937.4 g Louis Cook MD [address] [place] [address],[place] [phone], [facility] 10/11/2023 09:57:43 Social History Question Answer Notes LastModified by Organizat ion Details LastModified Time Tobacco Smoking Status Former Smoker Louis Cook MD [address] [place] [address], [phone], [facility] 09/28/2022 16:37:00 What Is Your Level [...] Date Of Your Most Recent Tobacco Screening? 10/11/2023 Information not available 10/11/2023 Have You Ever Been Counseled For Unhealthy Alcohol Use? No Information not available 04/26/2023 Do You Use Any Illicit Or Recreational Drugs? No Information not available 04/26/2023 Has Tobacco Cessation Counseling Been Provided? No Information not available 04/26/2023 How Many Days In The Past Year Have You Consumed 5 Or More Drinks? 0 Information no t available 04/26/2023 Sex: Unknown Functional Status None recorded. Mental Status None recorded. Family History Relationship Description Onset Age of this Age Resolved Age Notes LastModified by Organization Details LastModified Time Mother Family history of malignant neoplasm Not available 2022 16:36:20 Medical History Condition Response Other Y High Blood Pressure Y Kidney Stones N Lung Disease N Depression N Sexually Transmitted Infection N Cancer Y High Cholesterol N Diabetes Y Bleeding Disorder Y Heart Disease Y Immunizations Vaccine Type Date Status Note Provider Nam e and Address Organization Details Recorded Time Influenza, high-dose, quadrivalent, PF 3 completed Louis Cook MD [address] [place] [address] [facility]rolog 04/26/2023 10:59:30 RSV, recombinant, protein subunit RSVpreF, adjuvant reconstituted, 0.5 mL, PF 3 completed Louis Cook MD [address] [place] [address] 04/26/2023 10:59:31 COVID-19, mRNA, LNP-S, PF, 50 mcg/0.5 mL 3 completed Louis Cook MD [address] [place] [address], [address] [place] [address] [facility]rolog 04/26/2023 10:59:31 IPV 2 completed Susana Allar walter, [facility] 01/25/2023 09:28:19 Influenza, adjuvanted, trivalent, PF 7 completed Susana Allar null, [facility] 01/25/2023 09:28:19 Influenza, adjuvanted, trivalent, PF 9 completed Susana Allar null, [facility] 01/25/2023 09:28:19 Influenza, adjuvanted, trivalent, PF 8 completed Susana Allar null, [facility] 01/25/2023 09:28:19 zoster recombinant 0 completed Susana Alllulu watson, [facility] 01/25/2023 09:28:19 zoster recombinant 9 completed Susana Allar null, [facility] 01/25/2023 09:28:19 Influenza, adjuvanted, quadrivalent, PF 0 completed Susana Allar null, [facility] 01/25/2023 09:28:19 Influenza, adjuvanted, quadrivalent, PF 2 completed Susana Allar null, [facility] 01/25/2023 09:28:19 Influenza, adjuvanted, quadrivalent, PF 1 completed Susana Allar null, [facility] 01/25/2023 09:28:19 COVID-19, mRNA, LNP-S, PF, 100 mcg/0.5mL dose or 50 mcg/0.25mL dose 1 completed Susana Allar null, [facility] 01/25/2023 09:28:19 COVID-19, mRNA, LNP-S, PF, 100 mcg/0.5mL dose or 50 mcg/0.25mL dose 1 completed Susana Allar null, [facility] 01/25/2023 09:28:19 COVID-19, mRNA, LNP-S, PF, 100 mcg/0.5mL dose or 50 mcg/0.25mL dose 1 completed Susana Allar null, [facility] 01/25/2023 09:28:19 Pneumococcal conjugate PCV20, polysaccharide [id number] conjugate, adjuvant, PF 3 completed Susana Allar null, [facility] 01/25/2023 09:28:19 COVID-19, mRNA, LNP-S, PF, 30 mcg/0.3 mL dose, ocatvia-sucrose 2 completed Susana Allar null, [facility] 01/25/2023 09:28:19 COVID-19, mRNA, LNP-S, bivalent, PF, 50 mcg/0.5 mL or 25mcg/0.25 mL dose 3 completed Susana Allar null, [facility] 01/25/2023 09:28:19 COVID-19, mRNA, LNP-S, bivalent, PF, 50 mcg/0.5 mL or 25mcg/0.25 mL dose 2 completed Susana Allar null, [facility] 01/25/2023 09:28:19 pneumococcal polysaccharide PPV23 6 completed Susana Allar null, [facility] 01/25/2023 09:28:19 pneumococcal polysaccharide PPV23 6 completed Susana Allar null, [facility] 01/25/2023 09:28:19 Tdap 1 completed Susana Allar null, [facility] 01/25/2023 09:28:19 Tdap 1 completed Susana Allar null, [facility] 01/25/2023 09:28:19 Pneumococcal conjugate PCV 13 5 completed Susana Allar null, [facility] 01/25/2023 09:28:19 yellow fever live 2 completed Susana Allar null, [facility] 01/25/2023 09:28:19 yellow fever live 1 completed Susana Allar null, [facility] 01/25/2023 09:28:19 zoster live 7 completed Susana Allar null, [facility] 01/25/2023 09:28:19 Influenza, high-dose, trivalent, PF 4 completed Susana Allar null, [facility] 01/25/2023 09:28:19 Influenza, high-dose, trivalent, PF 6 completed Susana Allar null, [facility] 01/25/2023 09:28:19 Influenza, high-dose, trivalent, PF 5 completed Susana Allar null, [facility] 01/25/2023 09:28:19 Influenza, split virus, trivalent, preservative 2 completed Susana Allar null, [facility] 01/25/2023 09:28:19 Influenza, split virus, trivalent, preservative 1 completed Susana Allar null, [facility] 01/25/2023 09:28:19 Influenza, split virus, trivalent, preservative 6 completed Susana Allar null, [facility] 01/25/2023 09:28:19 Influenza, split virus, trivalent, preservative 4 completed Susana Allar null, [facility] 01/25/2023 09:28:19 Influenza, split virus, trivalent, preservative 3 completed Susana Allar null, [facility] 01/25/2023 09:28:19 Influenza, split virus, trivalent, preservative 0 completed Susana Allar null, [facility] 01/25/2023 09:28:19 Influenza, split virus, trivalent, preservative 7 completed Susana Allar null, [facility] 01/25/2023 09:28:19 Influenza, split virus, trivalent, preservative 5 completed Susana Allar null, [facility] 01/25/2023 09:28:19 Td (adult), 5 Lf tetanus toxoid, preservative free, adsorbed 5 completed Susana Allar null, [facility] 01/25/2023 09:28:19 typhoid, ViCPs 2 completed Susana Allar null, [facility] 01/25/2023 09:28:19 typhoid, ViCPs 1 completed Susana Allar null, [facility] 01/25/2023 09:28:19 Hep A-Hep B 2 completed Susana Allar null, [facility] 01/25/2023 09:28:19 Hep A-Hep B 2 completed Susana Allar null, [facility] 01/25/2023 09:28:19 Hep A-Hep B 2 completed Susana Allar null, [facility] 01/25/2023 09:28:19 Past Encounters Encounter ID Performer Location Encounter Start Date Encounter Closed Date Diagnosis/Indication Diagnosis SNOMED-CT Code Diagnosis ICD10 Code [id number] Louis Cook MD [facility] [address] [place] [address] 09/28/2022 16:22:42 10/02/2022 13:32:27 Malignant tumor of prostate 641443265 C61 Lower urin robbin tract symptoms due to benign prostatic hypertrophy 9875360194 9101 N40.1 [id number] Louis Cook MD [facility] [address] [place] [address] 04/26/2023 10:54:45 04/26/2023 12:03:27 Malignant tumor of prostate 103220297 C61 Lower urin robbin tract symptoms due to benign prostatic hypertrophy 9717522921 9101 N40.1 [id number] Louis Cook MD [facility] [address] [place] [address] 10/11/2023 09:43:36 10/12/2023 08:25:39 Malignant tumor of prostate 776841566 C61 Lower urin robbin tract symptoms due to benign prostatic hypertrophy 8030010999 9101 N40.1 Health Concerns Section Related Observation LastModified by Organization Detai ls LastModified Time None Recorded Concern Status LastModified by Organization Details LastModified Time None Recorded Advance Directives Directive None Recorded Payers Encounter Date Sequence Insurance Name Policy Number Policy Sam Covered Member ID Sam Member ID Guarantor Name 09/28/2022 1 [place] [id number] Enrike Coleman [id number] Enrike Coleman 04/26/2023 1 [place] [id number] Enrike Coleman [id number] Enrike Coleman 10/11/2023 1 [place] [id number] Enrike Coleman [id number] Enrike Coleman Notes Date Note Type Note Provider Name and Address Organization Details Recorded Time 09/28/2022 text/html 82 yo male with history of A.fib (on Eliqius), HTN, DM, memory loss, BPH, and Prostate cancer - T1c - [place] 3+3 = 6 - involving 1/10 cores (< 5%) on Left - TRUS bx (12/15/12) by Dr. [place] - on expectant management. Prostate MRI (2014) revealed a PI-RADS 2 lesion - underwent MRI bx (10/31/14) of lesion at [facility] - benign. No family H/O prostate cancer. [...] 1-2x/night. He denies hesitancy, urgency, or dysuria. PS A - 6.85 (09/09/12)- 7.13 (09/26/12)- 6.52 (10/07/12)- 8.67 (09/12/14)- 7.44 (04/09/15)- 7.21 (10/16/15)- 7.64 (10/01/16)- 6.74 (03/10/17)- 6.91 (02/11/18)- 10.96 (11/14/18)- 7.53 (02/16/19)- 6.51 (03/07/20)- 9.21 (11/13/20)- 8.30 (06/09/21)- 11.80 (09/15/22) Louis Cook MD [address], [place], [address], [facility] 09/28/2022 17:22:15 04/26/2023 text/html 83 yo male with history of A.fib (on Eliqius), HTN, DM, memory loss, BPH, and Prostate cancer - T1c - [place] 3+3 = 6 - involving 1/10 cores (< 5%) on Left - TRUS bx (12/15/12) by Dr. Herrera - on expectant management. Prostate MRI (2014) revealed a PI-RADS 2 lesion - underwent MRI bx (10/31/14) of lesion at [facility] - benign. No family H/O prostate cancer. [...] every 2-4 hours during the day and 1-2x/night.- PSA - 9.08 (04/16/23) - decreased P SA - 6.85 (09/09/12)- 7.13 (09/26/12)- 6.52 (10/07/12)- 8.67 (09/12/14)- 7.44 (04/09/15)- 7.21 (10/16/15)- 7.64 (10/01/16)- 6.74 (03/10/17)- 6.91 (02/11/18)- 10.96 (11/14/18)- 7.53 (02/16/19)- 6.51 (03/07/20)- 9.21 (11/13/20)- 8.30 (06/09/21)- 11.80 (09/15/22)- 9.08 (04/16/23) Louis Cook MD [address], [place], [address], [facility] 04/26/2023 11:10:14 10/11/2023 text/html 83 yo male with history of A.fib (on Eliquis), HTN, DM, memory loss, BPH, and Prostate cancer - T1c - [place] 3+3 = 6 - involving 1/10 cores (< 5%) on Left - TRUS bx (12/15/12) by Dr. Herrera - on expectant management. Prostate MRI (2014) revealed a PI-RADS 2 lesion - underwent MRI bx (10/31/14) of lesion at [facility] - benign. No family H/O prostate cancer. [...] 2-4 hours during the day and 1-2x/night. 10/11/23- He presents for follow-up on Prostate cancer. He voids every 2-4 hours during the day and 1-2x/night.- PSA -10.5 PSA - 6.85 (09/09/12) - 10.5(10/11/23)- 7.13 (09/26/12)- 6.52 (10/07/12)- 8.67 (09/12/14)- 7.44 (04/09/15)- 7.21 (10/16/15)- 7.64 (10/01/16)- 6.74 (03/10/17)- 6.91 (02/11/18)- 10.96 (11/14/18)- 7.53 (02/16/19)- 6.51 (03/07/20)- 9.21 (11/13/20)- 8.30 (06/09/21)- 11.80 (09/15/22)- 9.08 (04/16/23) Louis Cook MD [address] [address], [place], [address], [facility] 10/11/2023 10:30:45
[2024-02-24 08:50] VITALS: BP 119/73; PULSE 70; RESP 18; TEMP 36.7; O2SAT 97; BMI 31.0
--- NOTE | 2024-02-24 09:19 | ED_ITS ---
HPI - General Adult General Date Seen: 02/24/24 Chief complaint: Weakness Stated complaint: Cardiac - Dizziness/Weakness Time Seen by Provider: 02/24/24 09:01 Source: patient and family Mode of arrival: ambulatory Limitations: no limitations History of Present Illness HPI narrative: Patient is an 84-year-old male history of polymyalgia rheumatica, coronary artery disease with bypass surgery scheduled for beginning of next month, mild cognitive decline presenting to the emergency department with his for confusion and weakness. This morning he woke up with was feeling well and did his daily morning exercises. After that he felt very weak. His also states he seemed to not be at his mental baseline. Due to his heart disease his diesel electrician recommended to give him nitro if he develops symptoms like this. After the 1st Nitrol there is no improvement after the 2nd 1 his symptoms resolved for about half an hour. He is now back to having some worsening confusion again. It is not as bad as this morning. He is feeling slightly weak and lightheaded but again not as bad as this morning. When asked denies any sensation of the room spinning or feeling a like he is on a boat. Had very similar symptoms 10 days ago that resolved after a nitro. Has been having weakness for several years with polymyalgia rheumatica but the confusion associated with it started more recently over the past 2 months. Heart catheterization was done 14 days ago but they were unable to place stents and was work when he do bypassed. That is scheduled for 03/10/2023. This is through [facility]. Patient states he never has chest pain or shortness of breath with the symptoms. Denies fevers, chills, headache, vision changes, abdominal pain, diarrhea, constipation. No other concerns noted. Related Data Home Medications ?Medication ?Instructions ?Recorded ?Confirmed apixaban 5 mg tablet (Eliquis) 5 mg PO Q12H 02/15/22 02/24/24 blood sugar diagnostic (True 02/15/22 08/06/23 Metrix Glucose Test Strip) lisinopril 20 1 tab PO DAILY 02/15/22 02/24/24 mg-hydrochlorothiazide 25 mg tablet metformin 500 mg tablet,extended 2,000 mg PO DAILY 02/15/22 02/24/24 release 24 hr acetaminophen 500 mg capsule 500 mg PO Q6H PRN 07/27/23 02/24/24 cyanocobalamin (vitamin B-12) 1,000 mcg PO QDAY 07/27/23 02/24/24 1,000 mcg capsule gabapentin 300 mg capsule 300 mg PO QPM 07/27/23 02/24/24 glipizide 5 mg tablet, extended 15 mg PO DAILY 07/27/23 02/24/24 release 24 hr prednisone 5 mg tablet 5 - 15 mg PO DAILY 07/27/23 02/24/24 tamsulosin 0.4 mg capsule 0.4 mg PO DAILY 07/27/23 02/24/24 trospium 20 mg tablet 20 mg PO DAILY 07/27/23 02/24/24 empagliflozin 10 mg tablet 10 mg PO DAILY 02/24/24 02/24/24 (Jardiance) glipizide 10 mg tablet, extended mg PO 02/24/24 release 24 hr isosorbide mononitrate 30 mg 30 mg PO DAILY 02/24/24 02/24/24 tablet,extended release 24 hr metoprolol succinate 25 mg 12.5 mg PO DAILY 02/24/24 02/24/24 tablet,extended release 24 hr nitroglycerin 0.4 mg sublingual mg sublingual 02/24/24 tablet prednisone 10 mg tablet 10 - 15 mg PO DAILY 02/24/24 02/24/24 rosuvastatin 20 mg tablet 20 mg PO QPM 02/24/24 02/24/24 sacubitril 24 mg-valsartan 26 mg 1 tab PO BID 02/24/24 02/24/24 tablet (Entresto) terbinafine HCl 1 % topical cream applic topical BID 02/24/24 Allergies Allergy/AdvReac Type Severity Reaction Status Date / Time No Known Drug Allergies Allergy Verified 02/24/24 09:03 Review of Systems Status of ROS: Reports: 10 or more systems reviewed and unremarkable except as noted in History and below [facility] Medical History BPH without urinary obstruction ?N40.0 - Benign prostatic hyperplasia without lower urinary tract symptoms (ICD-10) Mild cognitive impairment ?G31.84 - Mild cognitive impairment of uncertain or unknown etiology (ICD-10) Prostate cancer ?C61 - Malignant neoplasm of prostate (ICD-10) Mobitz (type) I (Wenckebach's) atrioventricular block ?I44.1 - Atrioventricular block, second degree (ICD-10) Atrial fibrillation ?I48.91 - Unspecified atrial fibrillation (ICD-10) Iron deficiency anemia ?D50.9 - Iron deficiency anemia, unspecified (ICD-10) Erectile dysfunction ?N52.9 - Male erectile dysfunction, unspecified (ICD-10) Displacement of lumbar intervertebral disc without myelopathy ?M51.26 - Other intervertebral disc displacement, lumbar region (ICD-10) Degeneration of lumbar or lumbosacral intervertebral disc ?M51.37 - Other intervertebral disc degeneration, lumbosacral region (ICD-10) Vitamin B12 deficiency ?E53.8 - Deficiency of other specified B group vitamins (ICD-10) Lumbar radiculopathy ?M54.16 - Radiculopathy, lumbar region (ICD-10) 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 - Complete traumatic metacarpophalangeal amputation of unspecified finger, initial encounter (ICD-10) Diabetes ?E11.9 - Type 2 diabetes mellitus without complications (ICD-10) COVID ?U07.1 - COVID-19 (ICD-10) Surgical History History of permanent cardiac pacemaker placement ?Z95.0 - Presence of cardiac pacemaker (ICD-10) History of cholecystectomy ?Z90.49 - Acquired absence of other specified parts of digestive tract (ICD- 10) History of appendectomy ?Z90.49 - Acquired absence of other specified parts of digestive tract (ICD- 10) History of arthroscopy of left shoulder (03/21/96) ?Z98.890 - Other specified postprocedural states (ICD-10) History of arthroscopy of right shoulder (11/26/11) ?Z98.890 - Other specified postprocedural states (ICD-10) S/P ORIF (open reduction internal fixation) fracture (04/05/14) ?Z98.890 - Other specified postprocedural states (ICD-10) ?Z87.81 - Personal history of (healed) traumatic fracture (ICD-10) Family History Mother Bowel cancer Social History Smoking Status: Former smoker Do you use any of these nicotine containing products: None Second hand tobacco smoke exposure: Yes How often do you have a drink containing alcohol: 4 or more times a week How many standard drinks containing alcohol do you have on a typical day: 1 or 2 AUDIT-C Alcohol total score: 4 Non-prescribed substance use: denies use Exam Narrative: Exam Narrative: Const: Well-nourished, Well-developed, in mild distress Eyes: PERRL, no conjunctival injection, and symmetrical lids HENT: Atraumatic external nose and ears. Moist mucous membranes. Neck: Symmetric, trachea midline, No thyromegaly. CVS: RRR, No murmurs or gallops. Peripheral pulses 2+ and equal in all extremi ties RESP: Unlabored respiratory effort. Clear to auscultation bilaterally. GI: Nontender/Nondistended, No rebound or guarding. MSK:Extremities w/o deformity, Normal Active ROM Skin: Warm, Dry. No rashes or lesions. Neuro: Normal Muscle tone, No focal neurological deficits. Psych: Awake, Alert, & Oriented x3. Appropriate mood and affect. Const: Vital Signs, click to edit/add: Vital Signs - 24 hr 02/24/24 08:50 02/24/24 09:25 02/24/24 09:31 Temperature 98.1 F Pulse Rate [Pulse Oximeter] 70 Respiratory Rate 18 Blood Pressure 136/78 131/80 Blood Pressure [Ri ght Upper Arm] 119/73 Pulse Oximetry 97 Oxygen Delivery Me thod Room Air 02/24/24 10:01 02/24/24 10:31 02/24/24 11:01 Temperature Pulse Rate [Pulse Oximeter] Respiratory Rate Blood Pressure 132/76 139/83 129/87 Blood Pressure [Ri ght Upper Arm] Pulse Oximetry Oxygen Delivery Me thod Course Vital Signs Vital signs: Initial Vital Signs Temperature 98.1 F 02/24/24 08:50 Temperature Source Temporal Artery Scan 02/24/24 08:50 Pulse Rate 70 02/24/24 08:50 Respiratory Rate 18 02/24/24 08:50 Blood Pressure 119/73 02/24/24 08:50 Blood Pressure Mean 88 02/24/24 08:50 Blood Pressure Position Sitting 02/24/24 08:50 Pulse Oximetry 97 02/24/24 08:50 Oxygen Delivery Method Room Air 02/24/24 08:50 Vital Signs Temperature 98.1 F 02/24/24 08:50 Pulse Rate 70 02/24/24 08:50 Respiratory Rate 18 02/24/24 08:50 Blood Pressure 119/73 02/24/24 08:50 Pulse Oximetry 97 02/24/24 08:50 Oxygen Delivery Method Room Air 02/24/24 08:50 Temperature 98.1 F 02/24/24 08:50 Pulse Rate 70 02/24/24 08:50 Respiratory Rate 18 02/24/24 08:50 Blood Pressure 129/87 02/24/24 11:01 Pulse Oximetry 97 02/24/24 08:50 Oxygen Delivery Method Room Air 02/24/24 08:50 Medical Decision Making MDM Narrative Medical decision making narrative: Patient is an 84-year-old male presenting for concern of heart disease due to his weakness and altered mental status. The differential diagnosis of generalized weakness is broad and includes infection, electrolyte abnormalities, ACS, arrhythmia, hypoglycemia, electrolyte abnormality, respiratory failure, anemia, hypothyroidism, dehydration, medication induced etc. considering the history there is concerned this could be cardiac in nature. Will order EKG and troponin. Seems unlikely to be related to any intracranial issue concerning symptoms improved with the nitro and have been occurring for a couple months. Despite this high will order head CT to rule out. Will also order chest x-ray for possible other infectious sources causing symptoms.. Will also order BMP, magnesium, CBC, COVID/flu/RSV, urinalysis. Patient's lab work returned showing no concerning abnormalities. EKG shows no concerning findings. Initial troponin shows no findings. Will repeat the troponin. Head CT has reviewed by myself the radiologist shows no acute concerning abnormalities. Chest x-ray also shows no concerning findings. Patient's symptoms are now fully resolved according to the . On further discussion does states the patient was not have any chest pain but does state both occurrences over the past 10 days he had chest pressure. Due to this I did speak to the diesel electrician on-call for [employer]. Recommends increasing Imdur to 60 mg daily. On my review vital signs are stable throughout time in in the emergency department. Oximetry stayed in the mid to high 90s. air sampling and monitoring showed no concerning arrhythmias. The patient is are agreeable to this plan. He is safe for discharge. Lab Data Labs: Lab Results 02/24/24 02/24/24 02/24/24 Range/Units 09:18 09:20 11:11 WBC 7.58 (4.50-11.00) K/uL RBC 4.16 L (4.30-5.90) m/uL Hgb 12.8 L (13.5-17.5) gm/dL Hct 38.9 (37.0-53.0) % MCV 94 (80-100) fL MCH 31 (26-34) pg MCHC 33 (32-36) gm/dL RDW Coeff of [place] 13.1 (11.5-15.5) % Plt Count 141 (140-440) K/uL Neut % (Auto) 67.5 (42.0-72.0) % Lymph % (Auto) 19.1 L (20-44) % [place] % (Auto) 8.2 (0.0-11.0) % Eos % (Auto) 4.6 (0.0-7.0) % Baso % (Auto) 0.3 (0.0-3.0) % Neut # (Auto) 5.12 (1.7-7.0) K/uL Lymph # (Auto) 1.40 (0.90-2.90) K/uL [place] # (Auto) 0.60 (0.00-0.90) K/UL Eos # (Auto) 0.35 (0.00-0.50) K/uL Baso # (Auto) 0.02 (0.00-0.30) K/uL Abs Immat Gran (auto) 0.02 (0.00-0.30) K/uL Imm/Tot Granulo (auto) 0.3 % Sodium 136 (135-149) mmol/L Potassium 3.9 (3.6-5.1) mmol/L Chloride 108 (96-114) mmol/L Carbon Dioxide 22 (20-32) mmol/L Anion Gap 6 L (7-15) mEq/L BUN 17 (7-30) mg/dL Creatinine 0.7 (0.5-1.5) mg/dL Estimated Creat Clear 53.03 Estimated GFR 90 ml/min Glucose 202 H (60-115) mg/dL Calcium 8.7 (8.4-10.6) mg/dL Magnesium 2.1 (1.5-2.6) mg/dL Troponin I < 0.01 L (0.01-0.04) ng/mL Urine Color Yellow (Yellow) Urine Appearance Clear (Clear) Urine pH 5.5 (5.0-8.5) Ur Specific [place] 1.020 (1.000-1.030) Urine Protein Negative (Negative) Urine Glucose (UA) 3+ A (Negative) Urine Ketones Negative (Negative) Urine Blood Negative (Negative) Urine Nitrite Negative (Negative) Urine Bilirubin Negative (Negative) Urine Urobilinogen 0.2 (0.2-1.0) Ur Leukocyte Esterase Negative (Negative) Urine RBC 0-2 (0-2) Urine WBC 0-2 (0-5) Ur Squamous Epith Cells Few (None-Few) Urine Bacteria Few A (None) SARS-CoV-2 (PCR) Negative SARS-CoV-2 (Negative) Influenza Type A (PCR) Negative PCR FLU A (Negative) Influenza Type B (PCR) Negative PCR FLU B (Negative) RSV (PCR) Negative PCR RSV (Negative) POC Troponin I 0.01 (0.01-0.04) ng/ml 02/24/24 Range/Units 11:20 WBC (4.50-11.00) K/uL RBC (4.30-5.90) m/uL Hgb (13.5-17.5) gm/dL Hct (37.0-53.0) % MCV (80-100) fL MCH (26-34) pg MCHC (32-36) gm/dL RDW Coeff of Ferny (11.5-15.5) % Plt Count (140-440) K/uL Neut % (Auto) (42.0-72.0) % Lymph % (Auto) (20-44) % [place] % (Auto) (0.0-11.0) % Eos % (Auto) (0.0-7.0) % Baso % (Auto) (0.0-3.0) % Neut # (Auto) (1.7-7.0) K/uL Lymph # (Auto) (0.90-2.90) K/uL [place] # (Auto) (0.00-0.90) K/UL Eos # (Auto) (0.00-0.50) K/uL Baso # (Auto) (0.00-0.30) K/uL Abs Immat Gran (auto) (0.00-0.30) K/uL Imm/Tot Granulo (auto) % Sodium (135-149) mmol/L Potassium (3.6-5.1) mmol/L Chloride (96-114) mmol/L Carbon Dioxide (20-32) mmol/L Anion Gap (7-15) mEq/L BUN (7-30) mg/dL Creatinine (0.5-1.5) mg/dL Estimated Creat Clear Estimated GFR ml/min Glucose (60-115) mg/dL Calcium (8.4-10.6) mg/dL Magnesium (1.5-2.6) mg/dL Troponin I (0.01-0.04) ng/mL Urine Color (Yellow) Urine Appearance (Clear) Urine pH (5.0-8.5) Ur Specific [place] (1.000-1.030) Urine Protein (Negative) Urine Glucose (UA) (Negative) Urine Ketones (Negative) Urine Blood (Negative) Urine Nitrite (Negative) Urine Bilirubin (Negative) Urine Urobilinogen (0.2-1.0) Ur Leukocyte Esterase (Negative) Urine RBC (0-2) Urine WBC (0-5) Ur Squamous Epith Cells (None-Few) Urine Bacteria (None) SARS-CoV-2 (PCR) (Negative) Influenza Type A (PCR) (Negative) Influenza Type B (PCR) (Negative) RSV (PCR) (Negative) POC Troponin I 0.01 (0.01-0.04) ng/ml Imaging Data Chest x-ray: Attestation: I have reviewed the pertinent imaging results. Radiologist's impression: No acute cardiopulmonary process. Mild cardiomegaly without pulmonary edema. No focal consolidation, effusion or pneumothorax. Degenerative changes of the spine. Cardiac pacemaker defibrillator is in place. Dictated by Dayami Esquivel MD @ 02/24/2024 10:09:[address] scan - head: Attestation: I have reviewed the pertinent imaging results. Radiologist's impression: 1. No acute intracranial abnormalities. 2. Similar disproportionate enlargement of the ventricles with respect to depth of the sulci raises the possibility of normal pressure hydrocephalus. 3. Moderate parenchymal volume loss and chronic small vessel ischemic changes. Please note that all CT scans at this facility use dose modulation, iterative reconstruction, and/or weight-based dosing when appropriate to reduce radiation dose to as low as reasonably achievable. Dictated by Ubaldo Young MD @ 02/24/2024 9:54:29 AM ECG Data Attestation: I personally reviewed and interpreted this ECG as follows: Interpretation: AV dual paced rhythm with rate of 76 beats per minute, no ST or T-wave abnorma lities. Normal axis. Pacing spikes are seen previous EKG also. Discharge Plan Discharge Clinical Impression: Coronary artery disease Qualifiers: Coronary Disease-Associated Artery/Lesion type: unspecified vessel or lesion type [place] vs. transplanted heart: [place] heart Associated angina: with unspecified form of angina Qualified Code(s): I25.119 - Atherosclerotic heart disease of [place] coronary artery with unspecified angina pectoris Patient Disposition: Home, Self-Care Condition: Stable Instructions: Coronary Artery Disease (DC) Additional Instructions: Start taking the Imdur 60 mg daily. This will be 2 pills once a day. Return to emergency department for new or worsening symptoms. Make sure to not perform any moderate to heavy exercising. Prescriptions: No Action prednisone 5 mg tablet 5 - 15 mg PO DAILY glipizide 5 mg tablet extended release 24hr 15 mg PO DAILY trospium 20 mg tablet 20 mg PO DAILY tamsulosin 0.4 mg capsule 0.4 mg PO DAILY gabapentin 300 mg capsule 300 mg PO QPM cyanocobalamin (vitamin B-12) 1,000 mcg capsule 1,000 mcg PO QDAY acetaminophen 500 mg capsule 500 mg PO Q6H PRN terbinafine HCl 1 % cream topical BID prednisone 10 mg tablet 10 - 15 mg PO DAILY glipizide 10 mg tablet extended release 24hr PO isosorbide mononitrate 30 mg tablet extended release 24 hr 30 mg PO DAILY nitroglycerin 0.4 mg tablet, sublingual sublingual metoprolol succinate 25 mg tablet extended release 24 hr 12.5 mg PO DAILY rosuvastatin 20 mg tablet 20 mg PO QPM Jardiance 10 mg tablet 10 mg PO DAILY sacubitril-valsartan [Entresto] 24-26 mg tablet 1 tab PO BID (DME) True Metrix Glucose Test Strip Strip MISCELLANEOUS Patient Comments: TEST 2 TIMES PER WEEK. lisinopril-hydrochlorothiazide 20-25 mg tablet 1 tab PO DAILY Patient Comments: TAKE ONE TABLET BY MOUTH ONCE DAILY metformin 500 mg tablet extended release 24 hr 2,000 mg PO DAILY Patient Comments: TAKE 4 TABLETS (2,000 MG) BY MOUTH ONCE DAILY WITH EVENING MEAL. Eliquis 5 mg tablet 5 mg PO Q12H Patient Comments: TAKE 1 TABLET (5 MG) BY MOUTH TWO TIMES DAILY. Follow Up/Referrals: Bari Toscano MD [Primary Care Provider] - Stand Alone Forms: [email or web address] Info Instructions
[2024-02-24 09:25] VITALS: BP 136/78
--- NOTE | 2024-02-24 09:25 | CRLHL7_ITS ---
For Patients: As a result of the Century Cures Act, medical imaging exams and procedure reports are released immediately into your electronic medical record. You may view this report before your referring provider. If you have questions, please contact your health care provider. INDICATION: Confusion TECHNIQUE: CT of the head without contrast. Coronal and sagittal reformats. Bone and soft tissue algorithms. COMPARISON: CT 02/01/2023 FINDINGS: No acute intracranial hemorrhage or extra-axial collection. No evidence of acute cortical infarction. No mass effect or midline shift. Moderate generalized parenchymal volume loss. There is similar enlargement of the 3rd and lateral ventricles, somewhat disproportionate to depth the sulci with crowding of structures at the vertex mild regions of decreased attenuation within the periventricular and subcortical white matter of both cerebral hemispheres most likely reflect chronic microvascular ischemic disease and age related change in this patient. Vascular calcifications within the carotid siphons. Orbital contents are normal. No calvarial fractures. No lytic or sclerotic osseous lesions within the calvarium or skull base. Scalp and other imaged soft tissue structures are normal. Mastoid air cells are clear. Advanced degenerative changes at the atlantoaxial articulation. Calcification along the transverse ligament raises the possibility of calcium pyrophosphate deposition disease. Incidental bony narrowing of the bilateral external ear canals due to exostosis. Mild mucosal thickening in the maxillary sinuses. IMPRESSION: 1. No acute intracranial abnormalities. 2. Similar disproportionate enlargement of the ventricles with respect to depth of the sulci raises the possibility of normal pressure hydrocephalus. 3. Moderate parenchymal volume loss and chronic small vessel ischemic changes. Please note that all CT scans at this facility use dose modulation, iterative reconstruction, and/or weight-based dosing when appropriate to reduce radiation dose to as low as reasonably achievable. Dictated by Ubaldo Young MD @ 02/24/2024 9:54:29 AM (Electronically Signed)
--- NOTE | 2024-02-24 09:25 | CRLHL7_ITS ---
For Patients: As a result of the Century Cures Act, medical imaging exams and procedure reports are released immediately into your electronic medical record. You may view this report before your referring provider. If you have questions, please contact your health care provider. INDICATION: Chest pain. TECHNIQUE: Chest 2 views. COMPARISON: X-ray chest 05/30/2023 FINDINGS/ IMPRESSION: No acute cardiopulmonary process. Mild cardiomegaly without pulmonary edema. No focal consolidation, effusion or pneumothorax. Degenerative changes of the spine. Cardiac pacemaker defibrillator is in place. Dictated by Dayami Esquivel MD @ 02/24/2024 10:09:25 AM (Electronically Signed)
[2024-02-24 09:31] VITALS: BP 131/80
[2024-02-24 09:41] LABS: Troponin, Point-of-Care* 0.01 ng/ml (0.01-0.04)
[2024-02-24 09:47] LABS: Basophils Absolute Auto 0.02 K/uL (0.00-0.30); Basophils Percent Auto 0.3 % (0.0-3.0); Eosinophils Absolute Auto 0.35 K/uL (0.00-0.50); Eosinophils Percent Auto 4.6 % (0.0-7.0); Hematocrit 38.9 % (37.0-53.0); Hemoglobin* 12.8 gm/dL (13.5-17.5); Immature Granulocytes Abs Auto 0.02 K/uL (0.00-0.30); Immature Granulocytes Pct Auto 0.3 %; Lymphocytes Percent Auto 19.1 % (20-44); Mean Corpuscular HGB Conc 33 gm/dL (32-36); Mean Corpuscular Hemoglobin 31 pg (26-34); Mean Corpuscular Volume 94 fL (80-100); Monocytes Percent Auto 8.2 % (0.0-11.0); Neutrophils Absolute Auto 5.12 K/uL (1.7-7.0); Neutrophils Percent Auto 67.5 % (42.0-72.0); Platelet Count* 141 K/uL (140-440); RDW Coefficient of Variation % 13.1 % (11.5-15.5); Red Blood Count 4.16 m/uL (4.30-5.90); White Blood Count* 7.58 K/uL (4.50-11.00)
[2024-02-24 10:01] VITALS: BP 132/76
[2024-02-24 10:01] LABS: Slide Review Reflex No
[2024-02-24 10:09] LABS: Chloride* 108 mmol/L (96-114); Potassium* 3.9 mmol/L (3.6-5.1); Sodium* 136 mmol/L (135-149)
[2024-02-24 10:12] LABS: Anion Gap 6 mEq/L (7-15); Carbon Dioxide* 22 mmol/L (20-32); Creatinine* 0.7 mg/dL (0.5-1.5); Est. Creatinine Clearance* 53.03; Estimated Glomerular Filt Rate 90 ml/min
[2024-02-24 10:13] LABS: Blood Urea Nitrogen* 17 mg/dL (7-30); Calcium* 8.7 mg/dL (8.4-10.6); Glucose* 202 mg/dL (60-115); Magnesium* 2.1 mg/dL (1.5-2.6)
[2024-02-24 10:23] LABS: PCR FLU A Negative PCR FLU A (Negative); PCR FLU B Negative PCR FLU B (Negative); PCR RSV Negative PCR RSV (Negative); SARS PCR* Negative SARS-CoV-2 (Negative)
[2024-02-24 10:31] VITALS: BP 139/83
[2024-02-24 10:36] LABS: Troponin I* < 0.01 ng/mL (0.01-0.04)
[2024-02-24 11:01] VITALS: BP 129/87
[2024-02-24 11:24] LABS: Appearance Urine Clear (Clear); Bilirubin Urine Negative (Negative); Blood Urine Negative (Negative); Color Urine Yellow (Yellow); Glucose Urine 3+ (Negative); Ketones Urine Negative (Negative); Leukocyte Esterase Urine Negative (Negative); Nitrite Urine Negative (Negative); Protein Urine Negative (Negative); Urobilinogen Urine 0.2 (0.2-1.0); pH Urine 5.5 (5.0-8.5)
[2024-02-24 11:40] LABS: Bacteria Urine Few; RBC Urine 0-2 (0-2); Squamous Epithelial Cell Urine Few (None-Few); WBC Urine 0-2 (0-5)
[2024-02-24 11:49] LABS: Troponin, Point-of-Care* 0.01 ng/ml (0.01-0.04)
== END 2024-02-24 12:47 | disposition home or self-care (01) ==
PROVIDERS: Emergency Provider Student in an Organized Health Care Education/Training Program; PCP Family Medicine
DX: I25.10 Atherosclerotic heart disease of native coronary artery without angina pectoris (principal)
CPT/HCPCS: 36415; 70450; 71046; 80048; 81001; 83735; 84484; 85025; 87086; 87186; 87631; 93005; 99284; 99285

== ENCOUNTER 2024-03-23 17:03 | Outpatient (REF) | payer MEDICARE, SELFPAY ==
[2024-03-23 17:27] LABS: Basophils Absolute Auto 0.03 K/uL (0.00-0.30); Basophils Percent Auto 0.3 % (0.0-3.0); Eosinophils Absolute Auto 0.12 K/uL (0.00-0.50); Eosinophils Percent Auto 1.3 % (0.0-7.0); Hematocrit 27.8 % (37.0-53.0); Hemoglobin* 8.6 gm/dL (13.5-17.5); Immature Granulocytes Abs Auto 0.01 K/uL (0.00-0.30); Immature Granulocytes Pct Auto 0.1 %; Lymphocytes Percent Auto 11.5 % (20-44); Mean Corpuscular HGB Conc 31 gm/dL (32-36); Mean Corpuscular Hemoglobin 30 pg (26-34); Mean Corpuscular Volume 95 fL (80-100); Monocytes Percent Auto 8.8 % (0.0-11.0); Platelet Count* 293 K/uL (140-440); RDW Coefficient of Variation % 14.2 % (11.5-15.5); Red Blood Count 2.92 m/uL (4.30-5.90)
[2024-03-23 17:35] LABS: Slide Review Reflex No
[2024-03-23 18:06] LABS: Chloride* 104 mmol/L (96-114); Sodium* 136 mmol/L (135-149)
[2024-03-23 18:07] LABS: Potassium* 3.8 mmol/L (3.6-5.1)
[2024-03-23 18:09] LABS: Creatinine* 1.2 mg/dL (0.5-1.5); Estimated Glomerular Filt Rate 59 ml/min
[2024-03-23 18:10] LABS: Anion Gap 7 mEq/L (7-15); Blood Urea Nitrogen* 23 mg/dL (7-30); Calcium* 8.4 mg/dL (8.4-10.6); Carbon Dioxide* 25 mmol/L (20-32); Glucose* 172 mg/dL (60-115)
== END 2024-03-23 17:04 | disposition home or self-care (01) ==
LOC: NPINS 17:03
PROVIDERS: PCP Family Medicine; Visit Provider Family Medicine
DX: I25.10 Atherosclerotic heart disease of native coronary artery without angina pectoris (principal)
CPT/HCPCS: 80048; 85025

== ENCOUNTER 2024-04-14 12:06 | Emergency (ER) | payer MEDICARE, SELFPAY ==
--- OUTSIDE RECORDS SUMMARY | 2024-04-14 12:07 | XMS_ITS | Clinical Summary ---
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 90 Tablet 3 021 Active lancets (Microlet Lancet)Indicati ons:Type 2 diabetes mellitus without complication, without long-term current use of insulin (HC) Dispense item covered by pt ins. 250.00 NIDDM type II - Test twice a week 50 Each 3 021 Active tamsulosin (FLOMAX) 0.4 mg capsuleIndicati ons:BPH without urinary obstruction Take 1 Capsule (0.4 mg) by mouth once daily after a meal. 90 Capsule 3 024 Active blood sugar diagnostic (True Metrix Glucose Test Strip) stripIndication s:Type 2 diabetes mellitus without complication, without long-term current use of insulin (HC) TEST 2 TIMES PER WEEK. 50 Each 3 024 Active trospium (SANCTURA) 20 mg tabletIndicatio ns:OAB (overactive bladder) One oral daily. 30 Tablet 12 024 Active gabapentin (NEURONTIN) 300 mg capsuleIndicati ons:Spinal stenosis of lumbar region with neurogenic claudication Take 1 Capsule (300 mg) by mouth at bedtime. 90 Capsule 3 024 Active metFORMIN (GLUCOPHAGE XR) 500 mg Extended-Releas e tabletIndicatio ns:Controlled type 2 diabetes mellitus without complication, without long-term current use of insulin (HC) Take 4 Tablets (2,000 mg) by mouth once daily with evening meal. 360 Tablet 1 024 Active nitroglycerin (NITROSTAT) 0.4 mg sublingual tabletIndicatio ns:Abnormal cardiac CT angiography,SOB (shortness of breath) Place 1 Tablet (0.4 mg) under the tongue every 5 minutes if needed for Chest Pain. Up to 3 tablets in 15 minutes. 25 Tablet 2 024 Active rosuvastatin (CRESTOR) 20 mg tabletIndicatio ns:Abnormal cardiac CT angiography,SOB (shortness of breath),PINEDA (dyspnea on exertion) Take 1 Tablet (20 mg) by mouth at bedtime. 90 Tablet 3 024 Active aspirin (ECOTRIN) 81 mg enteric coated tabletIndicatio ns:ASHD (arteriosclerot ic heart disease) Take 1 Tablet (81 mg) by mouth once daily with a meal. Active honey (MediHoney, honey,) 100 % psteIndications :Wound of left lower extremity, subsequent encounter Apply topically to affected area(s). 44 mL 3 024 Active Eliquis 5 mg tabletIndicatio ns:Atrial fibrillation, unspecified type (HC) TAKE 1 TABLET (5 MG) BY MOUTH TWO TIMES DAILY. 60 Tablet 12 024 Active predniSONE (DELTASONE) 5 mg tablet Take 7.5 mg by mouth once daily with a meal. 7.5 mg daily through 03/21/24 then reduce dose to 5 mg daily x 3 weeks, then 2.5 mg daily x 3 weeks then stop Active empagliflozin (JARDIANCE) 10 mg tabletIndicatio ns:S/P CABG x 3 Take 0.5 Tablets (5 mg) by mouth once daily. Active metoprolol succinate (TOPROL XL) 25 mg Sustained-Relea se tabletIndicatio ns:S/P CABG x 3 Take 1 Tablet (25 mg) by mouth once daily. Active acetaminophen (TYLENOL) 325 mg tabletIndicatio ns:S/P CABG x 3 Take 2 Tablets (650 mg) by mouth every 4 hours if needed for Pain (for pain >2). Max acetaminophen dose: 4000mg in 24 hrs. Active glipiZIDE extended-releas e (GLUCOTROL XL) 10 mg Extended-Releas e tabletIndicatio ns:Type 2 diabetes mellitus without complication, without long-term current use of insulin (HC) Take 1 Tablet (10 mg) by mouth once daily before a meal. Active furosemide (LASIX) 20 mg tabletIndicatio ns:S/P CABG x 3 Take 1 Tablet (20 mg) by mouth once daily in the morning. Active cephalexin 500 mg capsuleIndicati ons:Cellulitis of skin Take 1 Capsule (500 mg) by mouth four times daily for 10 days. 40 Capsule 025 2024 Active glipiZIDE extended-releas e (GLUCOTROL XL) 10 mg Extended-Releas e tabletIndicatio ns:Controlled type 2 diabetes mellitus without complication, without long-term current use of insulin (HC) Take 2 Tablets (20 mg) by mouth once daily before a meal. 180 Tablet 1 024 2024 Discontinued sacubitril-vals karin (ENTRESTO) 24-26 mg tabletIndicatio ns:HFrEF (heart failure with reduced ejection fraction) (HC) Take 1 Tablet by mouth two times daily. 60 Tablet 11 024 2024 Discontinued(* IP Discontinued) empagliflozin (JARDIANCE) 10 mg tabletIndicatio ns:HFrEF (heart failure with reduced ejection fraction) (HC) Take 1 Tablet (10 mg) by mouth once daily. 90 Tablet 024 2024 Discontinued(* IP Discontinued) metoprolol succinate (TOPROL XL) 25 mg Sustained-Relea se tabletIndicatio ns:HFrEF (heart failure with reduced ejection fraction) (HC) Take 0.5 Tablets (12.5 mg) by mouth once daily. 45 Tablet 3 024 2024 Discontinued(* IP Discontinued) isosorbide mononitrate (IMDUR) 30 mg extended release tablet 24 HourIndications :ASHD (arteriosclerot ic heart disease) Take 1 Tablet (30 mg) by mouth once daily. 90 Tablet 1 024 2024 Discontinued(* IP Discontinued) furosemide (LASIX) 40 mg tabletIndicatio ns:S/P CABG x 3 Take 1 Tablet (40 mg) by mouth once daily in the morning. 025 2024 Discontinued(* Medication adjustment) potassium chloride (KLOR-CON M10) 10 mEq extended-releas e tablet (part/cryst)Ind ications:S/P CABG x 3 Take 2 Tablets (20 mEq) by mouth two times daily with meals. 025 2024 Discontinued(* Med complete/Regim en complete/Level of care change) oxyCODONE (ROXICODONE) 5 mg immediate release tabletIndicatio ns:S/P CABG x 3 Take 0.5 Tablets (2.5 mg) by mouth every 4 hours if needed (For Moderate Pain.). 10 Tablet 025 2024 Discontinued(* Med complete/Regim en complete/Level of care change) Hospital, Clinic, or Other Facility Administered Medication Ordered Dose Route Frequency Start Date End Date Status cefTRIAXone (ROCEPHIN) Intramuscular injection 1 gIndications:skin and skin structure infection 1 g IM ONE TIME 04/13/2024 04/13/2024 Ended Active Problems Problem Noted Date Diagnosed Date S/P CABG x 3 03/10/2024 03/10/2024 Overview (03/10/2024): TORRES-diagonal, SVG-LAD, SVG-distal RCA ASHD (arteriosclerotic heart disease) 02/11/2024 Overview (02/11/2024): - 12/29/23 NM Stress Test: IMPRESSION 1. Myocardial perfusion was abnormal. There was a medium-sized area of moderate nontransmural infarction in the basal, mid, and apical septal wall and the apex. The specificity of this finding may be decreased by ventricular pacing. 2. No significant ischemia was identified. - 01/31/24 CCTA: 1. Extensive calcified moderate to severe stenosis in the proximal LAD. A. CT-FFR sent to better assess the proximal LAD. B. Total coronary artery calcium score 1087. - angiogram 02/11/24: recommended for consideration of surgical revascularization Exertional fatigue and dyspnea 02/11/2024 Cervical spondylosis 01/10/2024 Neuropathy 01/10/2024 HFrEF; EF 22% Myoview 12/29/23. 52% TTE 01/14/24 . 12/30/2023 Mild cognitive impairment 06/09/2023 PMR (polymyalgia rheumatica) 03/03/2023 BPH without urinary obstruction 06/12/2022 Prostate cancer 06/12/2022 History of permanent cardiac pacemaker placement 04/21/2022 03/27/2022 Atrial fibrillation (HC) ER 01/28/2022 Mobitz (type) I (Wenckebach' s) atrioventricular block; 01/30/2022 01/30/2022 Vitamin B12 deficiency 12/09/2020 Iron deficiency anemia 12/09/2020 Erectile dysfunction 06/10/2020 Overweight 06/10/2020 Benign essential HTN 02/16/2019 Type 2 diabetes mellitus without complication Degeneration of lumbar or lumbosacral interverte bral disc 02/18/2012 Displacement of lumbar inter vertebral disc without myelopathy 02/18/2012 Left lumbar radiculopathy 02/18/2012 Overview (03/30/2012): L3 nerve impingement Resolved Problems Problem Noted Date Diagnosed Date Resolved Date PMR (sxs limited to pelvis, ESR=3.3, sx free on pred 20 09/07/2022 10/02/2022 Neurodegenerative disorder 06/12/2022 0 06/09/2023 Memory loss 06/11/2021 06/09/2023 Prostate cancer 04/04/2018 04/19/2019 Severe obesity (BMI 35.0-39. 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 06/09/2023 Total bilirubin, elevated 08/17/2012 Elevated PSA 05/16/2010 09/16/2012 Plantar fasciitis 03/14/2009 06/09/2023 Encounters Date Type Department Care Team Description 04/14/2024 11:20 AM MAINTENANCE SHOP TECHNICIAN Office Visit [facility] [address] [place] [address] Lindsay Toscano MD Follow Up (Follow up from 04/13/24/Painful injection site) 04/13/2024 3:15 PM MAINTENANCE SHOP TECHNICIAN Ancillary Procedure [facility] [address] [place] [address] Arrived 04/13/2024 1:40 PM MAINTENANCE SHOP TECHNICIAN Office Visit [facility] [address] [place] [address] Lindsay Toscano MD Derm Problem (Left buttock sore hard/red) 04/13/2024 10:43 AM MAINTENANCE SHOP TECHNICIAN - 04/13/2024 11:59 PM MAINTENANCE SHOP TECHNICIAN Hospital Encounter [facility] [address] [place] [address] Mayelin Skinner NP 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/2024 Travel 04/04/2024 11:20 AM MAINTENANCE SHOP TECHNICIAN Office Visit [facility] [address] [place] [address] Lindsay Toscano MD Hospital F/U (ANW, 03/10/2024 - 03/20/2024, [facility], 03/20/2024 - 03/31/2024, triple bypass surgery) 04/04/2024 Travel 03/27/2024 Lab Requisition [facility] [phone] Edilma Sutherland NP 03/10/2024 11:56 AM MAINTENANCE SHOP TECHNICIAN Anesthesia Event [facility] [address] [place] [address] Nataliya Linares MD Kushins, Derick Chow MD 03/10/2024 10:45 AM MAINTENANCE SHOP TECHNICIAN - 03/10/2024 4:53 PM MAINTENANCE SHOP TECHNICIAN Surgery [facility] [address] [place] [address] Tonja Redman MD INTRAOP FANG PERFORMED BY DR. LINARES, TAKEDOWN OF TORRES, ENDOSCOPIC VEIN HARVEST OF LEFT SAPHENOUS VEIN, BYPASS CORONARY ARTERY X3, LEFT ATRIAL APPENDAGE LIGATION WITH ATRICLIP SIZE 40MM, PLACEMENT OF TEMPORARY VENTRICULAR PACING WIRES. 03/10/2024 9:21 AM MAINTENANCE SHOP TECHNICIAN - 03/20/2024 12:15 PM MAINTENANCE SHOP TECHNICIAN Hospital Encounter [facility] [address] [place] [address] Tonja Redman MD S/P CABG x 3 (Primary Dx); Type 2 diabetes mellitus without complication, without long-term current use of insulin (HC) Discharge Disposition: Senior Living Facility 03/10/2024 Travel 03/03/2024 8:25 AM MAINTENANCE SHOP TECHNICIAN Office Visit [facility] [address] [place] [address] Lindsay Toscano MD Preoperative Exam (DOS: 03/10/2024, BYPASS CORONARY ARTERY W/EVH, LEFT ATRIAL APPENDAGE LIGATION, ANW, Dr. Tonja Redman) 03/03/2024 Travel 03/02/2024 11:30 AM MAINTENANCE SHOP TECHNICIAN Phone Office Visit [facility] [address] [facility] [address] [place] [phone] Olamide Randall PA Education (Pre-op Open Heart Surgery Education/) 02/27/2024 Travel 02/24/2024 Orders Only [facility] Scanner 1 scan: (1-Ord) [facility], CHEST 2 V, 02/24/2024 02/24/2024 Telephone [facility] [address] [place] [address] Hever Bill MD C5 TELEPHONE CONSULT 02/24/2024 Orders Only [facility] Scanner 1 scan: (1-Ord) [place], CT HEAD/BRAIN WO CON, 02/24/2024 02/24/2024 Refill [facility] [address] [place] [address] Lindsay Toscano MD Refill Request (Eliquis) 02/18/2024 8:35 AM MAINTENANCE SHOP TECHNICIAN - 02/18/2024 11:59 PM MAINTENANCE SHOP TECHNICIAN Hospital Encounter [facility] [address] [place] [address] Seymour Collazo PA Leistner, Joseph S, R.TMiah (ARRT) Coronary artery disease, unspecified vessel or lesion type, unspecified whether angina present, unspecified whether [place] or transplanted heart; Shortness of breath; Other specified symptoms and signs involving the circulatory and respiratory systems 02/18/2024 Travel 02/16/2024 Refill [facility] [address] [place] [address] Brayden Velázquez MD Refill Request (Prednisone) 02/16/2024 Telephone [facility] [address] [place] [address] Lindsay Toscano MD Form 02/16/[address] [place] [address] Melanie Isbell PA Follow Up (post-angiogram, inquire about CV surgery appointment); Medication Management (start Imdur) 02/15/2024 1:40 PM MAINTENANCE SHOP TECHNICIAN Office Visit [facility] [address] [place] [address] Lindsay Toscano MD Post Procedure (ANW, 02/11/2024, angiogram ); Suture Removal (Stitches in lower left leg) 02/15/2024 Travel 02/14/2024 Orders Only [facility] [address] [place] [address] Seymour Collazo PA Pre-Op Imaging 02/11/2024 10:34 AM MAINTENANCE SHOP TECHNICIAN - 02/11/2024 6:51 PM MAINTENANCE SHOP TECHNICIAN Hospital Encounter [facility] [address] [place] [address] Aba Viramontes MD ASHD (arteriosclerotic heart disease) (Primary Dx); Cardiovascular symptoms; Exertional fatigue and dyspnea Discharge Disposition: Home Self Care 02/11/2024 Travel 02/07/2024 2:05 PM MAINTENANCE SHOP TECHNICIAN Office Visit [facility] [address] [facility] [place] [address] Lindsay Toscano MD Follow Up 02/06/2024 Travel 02/02/2024 9:00 AM MAINTENANCE SHOP TECHNICIAN Office Visit [facility] [address] [place] [address] Constance Colmenares MD Derm Problem 02/02/2024 Travel 02/01/2024 11:00 AM MAINTENANCE SHOP TECHNICIAN Orders Only [facility] [address] [facility] [address] [place] [address] Lab 02/01/2024 10:00 AM MAINTENANCE SHOP TECHNICIAN Office Visit [facility] [address] [place] [address] Melanie Isbell PA Follow Up (2 WEEK F/U - LABS 01/27 DX: HFrEF CT scan yestereday. /Pt states feeling well today, mentioned no current cardiac symptoms. /Pt doesn't know his meds I take what's in my chart./) 01/31/2024 10:55 AM MAINTENANCE SHOP TECHNICIAN - 01/31/2024 11:59 PM MAINTENANCE SHOP TECHNICIAN Hospital Encounter [facility] [address] [place] [address] Melanie Isbell PA Heart failure, unspecified HF chronicity, unspecified heart failure type (HC); Abnormal stress test; Abnormal findings on diagnostic imaging of heart/coronary circulation 01/31/2024 Travel 01/28/2024 1:30 PM MAINTENANCE SHOP TECHNICIAN Orders Only [facility] [address] [facility] [place] [address] Lab, [facility] 01/27/2024 Travel 01/24/2024 Telephone [facility] [address] [place], [place] [id number] Constance Colmenares MD Questions (appointment ) 01/21/2024 Telephone [facility] [address] [facility] [address] [place] [phone] Melanie Isbell PA 01/21/2024 Telephone [facility] [address] [facility] [address] [place] [address] Jose, JEFFEYR Briggs Imaging (CTA) 01/21/2024 Orders Only [facility] [address] [facility] [address] [place] [address] Case, JEFFERY Briggs <No scans attached> 01/19/2024 Orders Only [facility] Scanner 1 scan: (1-Ord) [facility], 01/19/2024 01/17/2024 3:00 PM MAINTENANCE SHOP TECHNICIAN Ancillary Procedure [facility] [address] [place] [address] 01/17/2024 1:00 PM MAINTENANCE SHOP TECHNICIAN Office Visit [facility] [address] [place] [address] Wilian Valdez DO Consult (Back Pain) 01/17/2024 Travel 01/14/2024 9:00 AM MAINTENANCE SHOP TECHNICIAN Office Visit [facility] [address] [place] [address] Jose, JEFFERY Briggs Consult (REF / Dr Lindsay Toscano Wants soonest available appt due to 12/29/23 results of Stress Test at [facility]//Pt states he feels well today but gets tired at an unusual rate throughout the day but its not every day. ) 01/14/2024 Travel from Last 3 Months Immunizations Name Administration Dates Next Due AMB INFLUENZA IIV3 (AGE 65+ YRS) PF (Flu Clinic Only) 12/10/2017 AMB Influenza, IIV3 (Age >=3 years)(Flu Clinic Only) 12/23/2009 Amb Influenza, Inact (High-d ose) (Flu Clinic Only) 11/22/2015,11/30/2014,11/17/2013 COVID-19 VACCINE SPIKEVAX (M ODERNA 50MCG/0.5ML) 12YO+ PFS 06/09/2023 COVID-19 vaccine (Moderna 100mcg/0.5mL) PF, MDV 12/23/2020,04/29/2020 COVID-19 vaccine (Pfizer-Bio NTech 30mcg/0.3mL) 12YO+ CRISELDA-SUCROSE PF, MDV 06/11/2021 HepA-HepB (Twinrix) 10/24/2001,06/21/2001,2001 Inactivated Polio Vaccine 10/25/2001 Influenza, High-dose Inactivated 11/22/2015,04/2014,11/17/2013 Influenza, High-dose Quadriv alent Inactivated 01/06/2023 Influenza, IIV3 (Age >=3 years) 12/15/19 13,11/24/2011,12/02/2010,12/23,12/29/2006,12/03/2005,01/06/2005 ,12/13/2003 Influenza, Inactivated AIIV4 (Age 65+ Years) Preserv Free 11/10/2021,12/09/2020,11/10/2019 Influenza, Inactivated IIV3 (Age 65+ Years) Preserv Free 11/25/2023,11/14/2018,11/06/2016 Pneumococcal Conj 20-valent (Prevnar 20) 03/27/2022 Pneumococcal Poly,23-Valent (Pneumovax) 12/03/2005,08/03/1995 Pneumococcal conj 13-Valent (Prevnar 13) 09/21/2014 RSV, Recombinant ADJ Reconst ituted (Arexvy 120MCG/0.5mL) 01/19/2023 Td (Age >=7 Years) 10/22/2006 Td, Preservative Free (age >= 7 Years) 5 Tdap 06/11/2020,05/09/2010 Typhoid (injectable) 12/17/2010,09/23/2001 Yellow Fever 12/10/2010,10/21/2001 Zoster (Shingrix-RZV, recombinant) 03/06/2019, Zoster (Zostavax-ZVL, live) 11/17/2006 Family History Medical History Relation Name Comments Other Father alcohol related , d78 Cancer-colon Mother at 87 Anesthesia Problem Neg. Diabetes Other 1 none Heart Disease Other 2 none Other Other 3 No family hx of blood clots or bleeding disorders Relation Name Status Comments Father Mother Neg. Other 1 Other 2 Other 3 Social History Tobacco Use Types Packs/Day Years Used Date Smoking Tobacco: Former Pipe Smokeless Tobacco: Never Tobacco Cessation:Counseling Given: No Comments:quit smoking pipe 1999 Alcohol Use Standard Drinks/Week Comments Yes 7 (1 standard drink = 0.6 oz pure alcohol) 2 GLASSES OF WINE PER DAY; occasional scotch or beer PHQ-2 Answer Date Recorded PHQ-2 TOTAL SCORE 0 06/09/2023 Social Connections Answer Date Recorded Do you often feel lonely or isolated from those around you? 0 03/13/2024 Financial Resource Strain Answer Date R ecorded Difficulty of Paying Living Expenses 3 12/07/2023 Difficulty of Paying Living Expenses Not on file 12/07/2023 Food Insecurity Answer Date Recorded Do you worry your food will run out before you are able to buy more? 1 03/13/2024 Transportation Needs Answer Date Record ed Does lack of transportation keep you from medica l appointments? 1 03/13/2024 Does lack of transportation keep you from work, meetings or getting things that you need? 1 03/13/2024 Housing Stability Answer Date Recorded What is your housing situation today? 1 03/13/2024 Interpersonal Safety Answer Date Record ed Are you being hit, kicked, p ushed or yelled at (see row info)? No 03/10/2024 Interpersonal Safety Abuse 12 - 18 Not on file 03/10/2024 Interpersonal Safety Ambulatory Vulnerability No t on file 03/10/2024 Utilities Answer Date Recorded Do you have trouble paying f or utilities (for example, heat, electricity, water, phone)? 1 03/13/2024 Sex and Gender Information Value Date Recorded Sex Assigned at Not on file Legal Sex Male 5:25 AM MAINTENANCE SHOP TECHNICIAN Gender Identity Not on file Sexual Orientation Not on file Obstetrics History Last Filed Vital Signs Vital Sign Reading Time Taken Comments Blood Pressure 113/72 04/14/2024 11:09 AM MAINTENANCE SHOP TECHNICIAN Pulse 89 04/14/2024 11:09 AM MAINTENANCE SHOP TECHNICIAN Temperature 36.8 C (98.2 F) 03/20/2024 7:48 AM MAINTENANCE SHOP TECHNICIAN Respiratory Rate 20 04/13/2024 3:00 PM MAINTENANCE SHOP TECHNICIAN Oxygen Saturation 99% 04/14/2024 11:09 AM MAINTENANCE SHOP TECHNICIAN Inhaled Oxygen Concentration - - Weight 99.3 kg (219 lb) 04/13/2024 1:29 PM MAINTENANCE SHOP TECHNICIAN Height 172.7 cm (5' 8) 04/13/2024 3:00 PM MAINTENANCE SHOP TECHNICIAN Body Mass Index 34.3 03/10/2024 10:42 AM MAINTENANCE SHOP TECHNICIAN Plan of Treatment Upcoming Encounters Date Type Department Care Team (Late st Contact Info) Description 04/19/2024 10:00 AM MAINTENANCE SHOP TECHNICIAN Appointment [address] [address] 04/21/2024 10:00 AM MAINTENANCE SHOP TECHNICIAN Appointment [address] [address] 04/24/2024 10:00 AM MAINTENANCE SHOP TECHNICIAN Appointment [address] [address] 04/25/2024 1:45 PM MAINTENANCE SHOP TECHNICIAN Appointment [address] [address] Hillary Persaud, OT [address] [place] [address] 04/26/2024 9:00 AM MAINTENANCE SHOP TECHNICIAN Office Visit [facility] [address] [place] [address] [place] [address] [place] [address] 04/26/2024 10:00 AM MAINTENANCE SHOP TECHNICIAN Appointment [facility] [address] [place] [address] 04/28/2024 10:00 AM MAINTENANCE SHOP TECHNICIAN Appointment [facility] [address] [place] [address] 05/01/2024 10:00 AM MAINTENANCE SHOP TECHNICIAN Appointment [address] [address] 05/03/2024 10:00 AM MAINTENANCE SHOP TECHNICIAN Appointment [facility] [address] [place] [address] 05/05/2024 10:00 AM MAINTENANCE SHOP TECHNICIAN Appointment [facility] [address] [place] [address] 05/08/2024 10:00 AM CDT Appointment [facility] [address] [place] [address] 05/10/2024 10:00 AM CDT Appointment [facility] [address] [place] [address] 05/12/2024 10:00 AM CDT Appointment [facility] [address] [place] [address] 05/15/2024 10:00 AM CDT Appointment [facility] [address] [place] [address] 05/17/2024 10:00 AM CDT Appointment [facility] [address] [place] [address] 05/19/2024 10:00 AM CDT Appointment [facility] [address] [place] [address] 05/22/2024 10:00 AM CDT Appointment [facility] [address] [place] [address] 05/24/2024 10:00 AM CDT Appointment [facility] [address] [place] [address] 05/26/2024 10:00 AM CDT Appointment [facility] [address] [place] [address] 05/29/2024 10:00 AM CDT Appointment [facility] [address] [place] [address] 05/31/2024 10:00 AM CDT Appointment [facility] [address] [place] [address] 06/02/2024 Cardiac Device Check [facility] [phone] 06/02/2024 8:30 AM CDT Appointment [facility] [address] [place] [address] 06/02/2024 10:30 AM CDT Office Visit [facility] [address] [place] [address] Lindsay Toscano MD [address] [place] [address] 06/05/2024 10:00 AM CDT Appointment [facility] [address] [place] [address] 06/07/2024 10:00 AM CDT Appointment [address] [address] 06/09/2024 10:00 AM CDT Appointment [facility] [address] [place] [address] 06/12/2024 10:00 AM CDT Appointment [address] [address] 06/14/2024 10:00 AM CDT Appointment [address] [address] 06/16/2024 10:00 AM CDT Appointment [address] [address] 06/19/2024 10:00 AM CDT Appointment [address] [address] 06/21/2024 10:00 AM CDT Appointment [facility] [address] [place] [address] 06/23/2024 10:00 AM CDT Appointment [address] [address] 06/26/2024 10:00 AM CDT Appointment [facility] [address] [facility] [place] [address] 06/28/2024 10:00 AM CDT Appointment [facility] [address] [facility] [place] [address] 06/30/2024 10:00 AM CDT Appointment [facility] [address] [facility] [place] [address] 07/03/2024 10:00 AM CDT Appointment [facility] [address] [facility] [place] [address] 07/05/2024 10:00 AM CDT Appointment [facility] [address] [facility] [place] [address] 07/07/2024 10:00 AM CDT Appointment [facility] [address] [facility] [place] [address] Health Maintenance Due Date Last Done Comments Depression screening for age 12+ 06/09/2024 06/10/2023, 06/09/2023, 06/12/2022, Additional history exists Medicare Wellness for age 65+ 06/09/2024, 06/12/2022, 06/11/2021, Additional history exists BMI (ht and wt on same day) for age 18+ 03/03/2025 03/03/2024, 02/01/2024, 01/17/2024, Additional history exists Tetanus booster 06/11/2030 06/11/2020, 04/29, 10/22/2006, Additional history exists Zoster (shingles) series for age 50+ Completed 03/06/2019, 12/14/2018, 11/17/2006 Tdap Completed 06/11/2020, 05/09/2010 Pneumococcal series for age 50+ Completed 03/27/2022, 09/21/2014, 12/03/2005, Additional history exists RSV vaccine for adults or Completed 01/19/2023 COVID-19 vaccine series Completed 11/25/19, 06/09/2023, 01/19/2023, Additional history exists Influenza for age 65+ Completed 11/25/2023 , 01/06/2023, 11/10/2021, Additional history exists Medical Devices Implanted Type Area Home Appliances Mechanic Device Identifier Shelf Expiration Date Model / Serial / Lot Occluder Meghan 40mm Atriclip Flex V Exclusion Sys - [id number] Implanted:Qty: 1 on 03/10/2024 by Tonja Redman MD at [facility] N/A: [employer] 12/30/2024 [id number] / / [id number] Description:AtriCure AtriCli p . SIZE: 40MM. REF: [id number]. LOT: [id number]. Implanted on 03/10/[address] Redman at [facility]. Procedures Procedure Name Priority Date/Time Associated Diagnosis Comments US LOWER EXTREMITY SOFT TISSUE LEFT STAT 04/13/2024 2:49 PM MAINTENANCE SHOP TECHNICIAN Leg swelling SCAN-CARDIAC REHABILITATION 04/13/2024 12:04 PM MAINTENANCE SHOP TECHNICIAN CBC WITH AUTO DIFFERENTIAL Routine 03/28/2024 8:03 AM MAINTENANCE SHOP TECHNICIAN Anemia, unspecified CBC WITH AUTO DIFFERENTIAL Routine 03/28/2024 8:03 AM MAINTENANCE SHOP TECHNICIAN Anemia, unspecified SCAN-CARDIAC STRIP 03/20/2024 8:42 AM MAINTENANCE SHOP TECHNICIAN GLUCOSE METER Timed 03/20/2024 7:49 AM MAINTENANCE SHOP TECHNICIAN HEMOGLOBIN Early AM 03/20/2024 6:42 AM MAINTENANCE SHOP TECHNICIAN BASIC METABOLIC PANEL Early AM 03/20/2024 6:42 AM MAINTENANCE SHOP TECHNICIAN SCAN-CARDIAC STRIP 03/20/2024 1:16 AM MAINTENANCE SHOP TECHNICIAN GLUCOSE METER Timed 03/19/2024 9:32 PM MAINTENANCE SHOP TECHNICIAN GLUCOSE METER Timed 03/19/2024 5:23 PM MAINTENANCE SHOP TECHNICIAN SCAN-CARDIAC STRIP 03/19/2024 12:24 PM MAINTENANCE SHOP TECHNICIAN GLUCOSE METER Timed 03/19/2024 11:31 AM MAINTENANCE SHOP TECHNICIAN GLUCOSE METER Timed 03/19/2024 8:26 AM MAINTENANCE SHOP TECHNICIAN HEMOGLOBIN Early AM 03/19/2024 5:52 AM MAINTENANCE SHOP TECHNICIAN SCAN-CARDIAC STRIP 03/19/2024 4:13 AM MAINTENANCE SHOP TECHNICIAN POTASSIUM Timed 03/18/2024 7:32 PM MAINTENANCE SHOP TECHNICIAN GLUCOSE METER Timed 03/18/2024 5:37 PM MAINTENANCE SHOP TECHNICIAN SCAN-CARDIAC STRIP 03/18/2024 4:00 PM MAINTENANCE SHOP TECHNICIAN GLUCOSE METER Timed 03/18/2024 7:27 AM MAINTENANCE SHOP TECHNICIAN HEMOGLOBIN Early AM 03/18/2024 6:33 AM MAINTENANCE SHOP TECHNICIAN BASIC METABOLIC PANEL Early AM 03/18/2024 6:33 AM MAINTENANCE SHOP TECHNICIAN GLUCOSE METER Timed 03/17/2024 5:32 PM MAINTENANCE SHOP TECHNICIAN SCAN-CARDIAC STRIP 03/17/2024 3:37 PM MAINTENANCE SHOP TECHNICIAN POTASSIUM Timed 03/17/2024 11:49 AM MAINTENANCE SHOP TECHNICIAN HEMOGLOBIN Today 03/17/2024 11:49 AM MAINTENANCE SHOP TECHNICIAN SCAN-CARDIAC STRIP 03/17/2024 9:40 AM MAINTENANCE SHOP TECHNICIAN HEMOGLOBIN Early AM 03/17/2024 6:56 AM MAINTENANCE SHOP TECHNICIAN BASIC METABOLIC PANEL Early AM 03/17/2024 6:56 AM MAINTENANCE SHOP TECHNICIAN GLUCOSE METER Timed 03/16/2024 9:17 PM MAINTENANCE SHOP TECHNICIAN GLUCOSE METER Timed 03/16/2024 4:17 PM MAINTENANCE SHOP TECHNICIAN GLUCOSE METER Timed 03/16/2024 12:35 PM MAINTENANCE SHOP TECHNICIAN SCAN-CARDIAC STRIP 03/16/2024 9:18 AM MAINTENANCE SHOP TECHNICIAN GLUCOSE METER Timed 03/16/2024 7:43 AM MAINTENANCE SHOP TECHNICIAN MAGNESIUM Early AM 03/16/2024 7:05 AM MAINTENANCE SHOP TECHNICIAN BASIC METABOLIC PANEL Early AM 03/16/2024 7:05 AM MAINTENANCE SHOP TECHNICIAN HEMOGLOBIN Early AM 03/16/2024 7:04 AM MAINTENANCE SHOP TECHNICIAN SCAN-CARDIAC STRIP 03/16/2024 1:39 AM MAINTENANCE SHOP TECHNICIAN SCAN-CARDIAC STRIP 03/15/2024 10:18 PM MAINTENANCE SHOP TECHNICIAN GLUCOSE METER Timed 03/15/2024 9:11 PM MAINTENANCE SHOP TECHNICIAN GLUCOSE METER Timed 03/15/2024 4:39 PM MAINTENANCE SHOP TECHNICIAN POTASSIUM Timed 03/15/2024 2:58 PM MAINTENANCE SHOP TECHNICIAN GLUCOSE METER Timed 03/15/2024 11:13 AM MAINTENANCE SHOP TECHNICIAN GLUCOSE METER Timed 03/15/2024 7:42 AM MAINTENANCE SHOP TECHNICIAN BASIC METABOLIC PANEL Early AM 03/15/2024 6:15 AM MAINTENANCE SHOP TECHNICIAN CBC W PLT NO DIFF Early AM 03/15/2024 6:15 AM MAINTENANCE SHOP TECHNICIAN MAGNESIUM Early AM 03/15/2024 6:15 AM MAINTENANCE SHOP TECHNICIAN SCAN-CARDIAC STRIP 03/15/2024 12:37 AM MAINTENANCE SHOP TECHNICIAN GLUCOSE METER Timed 03/14/2024 8:56 PM MAINTENANCE SHOP TECHNICIAN GLUCOSE METER Timed 03/14/2024 5:27 PM MAINTENANCE SHOP TECHNICIAN SCAN-CARDIAC STRIP 03/14/2024 3:10 PM MAINTENANCE SHOP TECHNICIAN GLUCOSE METER Timed 03/14/2024 12:43 PM MAINTENANCE SHOP TECHNICIAN GLUCOSE METER Timed 03/14/2024 9:29 AM MAINTENANCE SHOP TECHNICIAN POTASSIUM Early AM 03/14/2024 6:26 AM MAINTENANCE SHOP TECHNICIAN MAGNESIUM Early AM 03/14/2024 6:26 AM MAINTENANCE SHOP TECHNICIAN SCAN-CARDIAC STRIP 03/13/2024 10:58 PM MAINTENANCE SHOP TECHNICIAN GLUCOSE METER Timed 03/13/2024 9:21 PM MAINTENANCE SHOP TECHNICIAN GLUCOSE METER Timed 03/13/2024 5:18 PM MAINTENANCE SHOP TECHNICIAN EKG 12 LEAD STAT 03/13/2024 1:09 PM MAINTENANCE SHOP TECHNICIAN GLUCOSE METER Timed 03/13/2024 11:58 AM MAINTENANCE SHOP TECHNICIAN SCAN-CARDIAC STRIP 03/13/2024 9:12 AM MAINTENANCE SHOP TECHNICIAN PHOSPHORUS Early AM 03/13/2024 8:22 AM MAINTENANCE SHOP TECHNICIAN MAGNESIUM Early AM 03/13/2024 8:22 AM MAINTENANCE SHOP TECHNICIAN [facility] DRAW ONLY Early AM 03/13/2024 8:22 AM MAINTENANCE SHOP TECHNICIAN BASIC METABOLIC PANEL Early AM 03/13/2024 8:22 AM MAINTENANCE SHOP TECHNICIAN CBC W PLT NO DIFF Early AM 03/13/2024 8:22 AM MAINTENANCE SHOP TECHNICIAN PROTIME-INR Early AM 03/13/2024 8:22 AM MAINTENANCE SHOP TECHNICIAN XR CHEST 1 VIEW PORTABLE Routine 025 8:13 AM MAINTENANCE SHOP TECHNICIAN GLUCOSE METER Timed 03/13/2024 8:04 AM MAINTENANCE SHOP TECHNICIAN SCAN-CARDIAC STRIP 03/13/2024 1:29 AM MAINTENANCE SHOP TECHNICIAN GLUCOSE METER Timed 03/12/2024 10:11 PM MAINTENANCE SHOP TECHNICIAN GLUCOSE METER Timed 03/12/2024 5:31 PM MAINTENANCE SHOP TECHNICIAN [facility] DRAW ONLY STAT 03/12/2024 3:56 PM MAINTENANCE SHOP TECHNICIAN SODIUM STAT 03/12/2024 3:56 PM MAINTENANCE SHOP TECHNICIAN HEMOGLOBIN STAT 03/12/2024 3:56 PM MAINTENANCE SHOP TECHNICIAN XR CHEST 1 VIEW PORTABLE STAT 025 12:58 PM MAINTENANCE SHOP TECHNICIAN GLUCOSE METER Timed 03/12/2024 12:44 PM MAINTENANCE SHOP TECHNICIAN URINALYSIS MICROSCOPIC Timed 11:35 AM MAINTENANCE SHOP TECHNICIAN UA W/ SEDIMENT EXAM REFLEXED PER CRITERIA Today 03/12/2024 11:35 AM MAINTENANCE SHOP TECHNICIAN TRANSFUSE RBC (NURSE COMMUNICATION ORDER) STAT 03/12/2024 11:00 AM MAINTENANCE SHOP TECHNICIAN RBC W/O TYPE & SCREEN STAT 03/12/2024 10:34 AM MAINTENANCE SHOP TECHNICIAN XR CHEST 1 VIEW PORTABLE STAT 025 10:12 AM MAINTENANCE SHOP TECHNICIAN GLUCOSE METER Timed 03/12/2024 9:02 AM MAINTENANCE SHOP TECHNICIAN O2 SATURATION,MEASURED Early AM 3:35 AM MAINTENANCE SHOP TECHNICIAN LACTATE ARTERIAL Early AM 03/12/2024 3:35 AM MAINTENANCE SHOP TECHNICIAN CBC W PLT NO DIFF Early AM 03/12/2024 3:35 AM MAINTENANCE SHOP TECHNICIAN [facility] DRAW ONLY Early AM 03/12/2024 3:35 AM MAINTENANCE SHOP TECHNICIAN COMP METABOLIC PANEL Early AM 03/12/2024 3:35 AM MAINTENANCE SHOP TECHNICIAN AMMONIA Early AM 03/12/2024 3:35 AM MAINTENANCE SHOP TECHNICIAN MAGNESIUM Early AM 03/12/2024 3:35 AM MAINTENANCE SHOP TECHNICIAN PROTIME-INR Early AM 03/12/2024 3:35 AM MAINTENANCE SHOP TECHNICIAN GLUCOSE METER Timed 03/11/2024 10:09 PM MAINTENANCE SHOP TECHNICIAN GLUCOSE METER Timed 03/11/2024 5:56 PM MAINTENANCE SHOP TECHNICIAN GLUCOSE METER Timed 03/11/2024 4:08 PM MAINTENANCE SHOP TECHNICIAN O2 SATURATION,MEASURED STAT 3:15 PM MAINTENANCE SHOP TECHNICIAN LACTATE ARTERIAL STAT 03/11/2024 3:15 PM MAINTENANCE SHOP TECHNICIAN GLUCOSE METER Timed 03/11/2024 1:23 PM MAINTENANCE SHOP TECHNICIAN EKG 12 LEAD Routine 03/11/2024 1:10 PM MAINTENANCE SHOP TECHNICIAN GLUCOSE METER Timed 03/11/2024 11:59 AM MAINTENANCE SHOP TECHNICIAN [facility] DRAW ONLY Today 03/11/2024 11:58 AM MAINTENANCE SHOP TECHNICIAN AMMONIA STAT 03/11/2024 11:58 AM MAINTENANCE SHOP TECHNICIAN POTASSIUM Timed 03/11/2024 10:31 AM MAINTENANCE SHOP TECHNICIAN GLUCOSE METER Timed 03/11/2024 10:28 AM MAINTENANCE SHOP TECHNICIAN EKG 12 LEAD Early AM 03/11/2024 8:02 AM MAINTENANCE SHOP TECHNICIAN GLUCOSE METER Timed 03/11/2024 6:17 AM MAINTENANCE SHOP TECHNICIAN GLUCOSE METER Timed 03/11/2024 4:56 AM MAINTENANCE SHOP TECHNICIAN XR CHEST 1 VIEW PORTABLE Routine 025 4:21 AM MAINTENANCE SHOP TECHNICIAN GLUCOSE METER Timed 03/11/2024 3:55 AM MAINTENANCE SHOP TECHNICIAN LACTATE ARTERIAL Early AM 03/11/2024 3:55 AM MAINTENANCE SHOP TECHNICIAN PLATELET COUNT Early AM 03/11/2024 3:55 AM MAINTENANCE SHOP TECHNICIAN MAGNESIUM Early AM 03/11/2024 3:55 AM MAINTENANCE SHOP TECHNICIAN [facility] DRAW ONLY Early AM 03/11/2024 3:55 AM MAINTENANCE SHOP TECHNICIAN PROTIME-INR Early AM 03/11/2024 3:55 AM MAINTENANCE SHOP TECHNICIAN HEMOGLOBIN Early AM 03/11/2024 3:55 AM MAINTENANCE SHOP TECHNICIAN BASIC METABOLIC PANEL Early AM 03/11/2024 3:55 AM MAINTENANCE SHOP TECHNICIAN GLUCOSE METER Timed 03/11/2024 2:01 AM MAINTENANCE SHOP TECHNICIAN GLUCOSE METER Timed 03/11/2024 12:53 AM MAINTENANCE SHOP TECHNICIAN ARTERIAL BLOOD GAS STAT 03/11/2024 12:32 AM MAINTENANCE SHOP TECHNICIAN GLUCOSE METER Timed 03/10/2024 11:58 PM MAINTENANCE SHOP TECHNICIAN GLUCOSE METER Timed 03/10/2024 11:05 PM MAINTENANCE SHOP TECHNICIAN GLUCOSE METER Timed 03/10/2024 9:21 PM MAINTENANCE SHOP TECHNICIAN GLUCOSE METER Timed 03/10/2024 8:32 PM MAINTENANCE SHOP TECHNICIAN GLUCOSE METER Timed 03/10/2024 7:26 PM MAINTENANCE SHOP TECHNICIAN EKG 12 LEAD STAT 03/10/2024 7:08 PM MAINTENANCE SHOP TECHNICIAN GLUCOSE METER Timed 03/10/2024 6:47 PM MAINTENANCE SHOP TECHNICIAN XR CHEST 1 VIEW PORTABLE STAT 025 6:30 PM MAINTENANCE SHOP TECHNICIAN CREATININE DAVID 03/10/2024 5:47 PM MAINTENANCE SHOP TECHNICIAN [facility] DRAW ONLY DAVID 03/10/2024 5:47 PM MAINTENANCE SHOP TECHNICIAN FIBRINOGEN,QUANTITATIVE STAT 03/10/19 25 5:47 PM MAINTENANCE SHOP TECHNICIAN THROMBIN TIME STAT 03/10/2024 5:47 PM MAINTENANCE SHOP TECHNICIAN PROTIME-INR STAT 03/10/2024 5:47 PM MAINTENANCE SHOP TECHNICIAN APTT STAT 03/10/2024 5:47 PM MAINTENANCE SHOP TECHNICIAN PLATELET COUNT STAT 03/10/2024 5:47 PM MAINTENANCE SHOP TECHNICIAN MAGNESIUM STAT 03/10/2024 5:47 PM MAINTENANCE SHOP TECHNICIAN POTASSIUM STAT 03/10/2024 5:47 PM MAINTENANCE SHOP TECHNICIAN HEMOGLOBIN STAT 03/10/2024 5:47 PM MAINTENANCE SHOP TECHNICIAN ARTERIAL BLOOD GAS STAT 03/10/2024 5:47 PM MAINTENANCE SHOP TECHNICIAN GLUCOSE METER Timed 03/10/2024 5:46 PM MAINTENANCE SHOP TECHNICIAN TRANSFUSE CRYOPRECIPITATE (NURSE COMMUNICATION ORDER) Today 03/10/2024 4:56 PM MAINTENANCE SHOP TECHNICIAN TRANSFUSE PLT (NURSE COMMUNICATION ORDER) Today 03/10/2024 4:32 PM MAINTENANCE SHOP TECHNICIAN TRANSFUSE PLT (NURSE COMMUNICATION ORDER) Today 03/10/2024 4:32 PM MAINTENANCE SHOP TECHNICIAN TRANSFUSE PLASMA (NURSE COMMUNICATION ORDER) Today 03/10/2024 4:29 PM MAINTENANCE SHOP TECHNICIAN PLATELET ORDER STAT 03/10/2024 4:18 PM MAINTENANCE SHOP TECHNICIAN PLATELET ORDER STAT 03/10/2024 4:18 PM MAINTENANCE SHOP TECHNICIAN PLASMA ORDER STAT 03/10/2024 4:18 PM MAINTENANCE SHOP TECHNICIAN CRYOPRECIPITATE ORDER STAT 03/10/2024 4:18 PM MAINTENANCE SHOP TECHNICIAN CRYOPRECIPITATE EA UNIT STAT 03/10/19 4:15 PM MAINTENANCE SHOP TECHNICIAN CRYOPRECIPITATE EA UNIT STAT 03/10/19 4:15 PM MAINTENANCE SHOP TECHNICIAN PLATELET EA UNIT STAT 03/10/2024 4:15 PM MAINTENANCE SHOP TECHNICIAN PLATELET EA UNIT STAT 03/10/2024 4:15 PM MAINTENANCE SHOP TECHNICIAN PLASMA SNGL DON FFPEA UNIT STAT 03/10/2024 4:15 PM MAINTENANCE SHOP TECHNICIAN PLASMA SNGL DON FFPEA UNIT STAT 03/10/2024 4:15 PM MAINTENANCE SHOP TECHNICIAN TRANSFUSE RBC (NURSE COMMUNICATION ORDER) Today 03/10/2024 3:46 PM MAINTENANCE SHOP TECHNICIAN CARDIAC THROMBOELASTOGRAPHY STAT 03/10/2024 3:35 PM MAINTENANCE SHOP TECHNICIAN FIBRINOGEN,QUANTITATIVE STAT 03/10/19 3:35 PM MAINTENANCE SHOP TECHNICIAN PLATELET COUNT STAT 03/10/2024 3:35 PM MAINTENANCE SHOP TECHNICIAN RED BLOOD CELLS EA UNIT STAT 03/10/19 3:30 PM MAINTENANCE SHOP TECHNICIAN RED BLOOD CELLS EA UNIT STAT 03/10/19 3:30 PM MAINTENANCE SHOP TECHNICIAN RBC W/O TYPE & SCREEN STAT 03/10/2024 3:27 PM MAINTENANCE SHOP TECHNICIAN FANG Routine 03/10/2024 3:10 PM MAINTENANCE SHOP TECHNICIAN HCHG CATH INFUSION PR70 Routine 03/10/19 3:10 PM MAINTENANCE SHOP TECHNICIAN HCHG KIT PR5 Routine 03/10/2024 3:10 PM MAINTENANCE SHOP TECHNICIAN AHC AN INTRODUCER 2 LUMEN PERFORMABLE Routine 03/10/2024 3:10 PM MAINTENANCE SHOP TECHNICIAN HCHG DRSG PR1 Routine 03/10/2024 3:10 PM MAINTENANCE SHOP TECHNICIAN HCHG DRSG PR5 Routine 03/10/2024 3:10 PM MAINTENANCE SHOP TECHNICIAN HCHG TUBING PR5 Routine 03/10/2024 3:10 PM MAINTENANCE SHOP TECHNICIAN HCHG KIT MONITORING PR5 Routine 03/10/19 3:10 PM MAINTENANCE SHOP TECHNICIAN HCHG ADPTR PR1 Routine 03/10/2024 3:10 PM MAINTENANCE SHOP TECHNICIAN HCHG CATH INFUSION PR30 Routine 03/10/19 3:10 PM MAINTENANCE SHOP TECHNICIAN HCHG TUBING PR5 Routine 03/10/2024 3:10 PM MAINTENANCE SHOP TECHNICIAN HCHG ANES US GUIDE FOR VASC ACCESS Routine 03/10/2024 3:10 PM MAINTENANCE SHOP TECHNICIAN HCHG STOPCOCK PR5 Routine 03/10/2024 3:10 PM MAINTENANCE SHOP TECHNICIAN CVC TRIPLE LUMEN Routine 03/10/2024 3:10 PM MAINTENANCE SHOP TECHNICIAN HCHG KIT PR5 Routine 03/10/2024 3:09 PM MAINTENANCE SHOP TECHNICIAN HCHG DRSG PR5 Routine 03/10/2024 3:09 PM MAINTENANCE SHOP TECHNICIAN HCHG DRSG PR1 Routine 03/10/2024 3:09 PM MAINTENANCE SHOP TECHNICIAN HCHG TUBING PR20 Routine 03/10/2024 3:09 PM MAINTENANCE SHOP TECHNICIAN HCHG TUBING PR1 Routine 03/10/2024 3:09 PM MAINTENANCE SHOP TECHNICIAN HCHG ANES ARTERIAL CATH FOR SAMPLE MONITOR TRANS Routine 03/10/2024 3:09 PM MAINTENANCE SHOP TECHNICIAN HCHG ANES US GUIDE FOR VASC ACCESS Routine 03/10/2024 3:09 PM MAINTENANCE SHOP TECHNICIAN HCHG CATH PR5 Routine 03/10/2024 3:09 PM MAINTENANCE SHOP TECHNICIAN ECHO FANG INTRAOPERATIVE Routine 03/10/19 2:42 PM MAINTENANCE SHOP TECHNICIAN ENDOTRACHEAL TUBE Routine 03/10/2024 1:18 PM MAINTENANCE SHOP TECHNICIAN ENDOTRACHEAL TUBE Routine 03/10/2024 1:18 PM MAINTENANCE SHOP TECHNICIAN BYPASS CORONARY ARTERY 01 2024 11:31 AM MAINTENANCE SHOP TECHNICIAN CAD Case Notes BYPASS CORONARY ARTERY W/EVH, LEFT ATRIAL APPENDAGE LIGATION TYPE & SCREEN Preop 03/10/2024 10:41 AM MAINTENANCE SHOP TECHNICIAN PROTIME-INR Preop 03/10/2024 10:41 AM MAINTENANCE SHOP TECHNICIAN CBC W PLT NO DIFF Preop 03/10/2024 10:41 AM MAINTENANCE SHOP TECHNICIAN GLUCOSE, FASTING Preop 03/10/2024 10:41 AM MAINTENANCE SHOP TECHNICIAN EXTRA TUBE GOLD/SST Today 03/10/2024 10:40 AM MAINTENANCE SHOP TECHNICIAN BEDSIDE US STUDY ARCHIVE Routine 025 10:06 AM MAINTENANCE SHOP TECHNICIAN SCAN-OPERATIVE/PROCEDURE REPORT 03/10/2024 12:00 AM MAINTENANCE SHOP TECHNICIAN HEMOGLOBIN A1C MONITORING (POCT) Routine 03/03/2024 8:51 AM MAINTENANCE SHOP TECHNICIAN Type 2 diabetes mellitus without complication, without long-term current use of insulin (HC) CBC W PLT NO DIFF Routine 03/03/2024 8:50 AM MAINTENANCE SHOP TECHNICIAN Preop examination BASIC METABOLIC PANEL Routine 03/03/2024 8:50 AM MAINTENANCE SHOP TECHNICIAN Preop examination SCAN-RADIOLOGY REPORT 02/24/2024 12:00 AM MAINTENANCE SHOP TECHNICIAN SCAN-CT INTERPRETATION 12:00 AM MAINTENANCE SHOP TECHNICIAN US CAROTID DUPLEX BILATERAL STAT 02/18/2024 9:29 AM MAINTENANCE SHOP TECHNICIAN Coronary artery disease, unspecified vessel or lesion type, unspecified whether angina present, unspecified whether [place] or transplanted heart Other specified symptoms and signs involving the circulatory and respiratory systems US VEIN MAPPING LOWER EXTREMITY BILATERAL STAT 02/18/2024 9:29 AM MAINTENANCE SHOP TECHNICIAN Coronary artery disease, unspecified vessel or lesion type, unspecified whether angina present, unspecified whether [place] or transplanted heart Shortness of breath BASIC METABOLIC PANEL Routine 02/15/2024 2:17 PM MAINTENANCE SHOP TECHNICIAN HFrEF (heart failure with reduced ejection fraction) (HC) GLUCOSE METER Timed 02/11/2024 4:04 PM MAINTENANCE SHOP TECHNICIAN CVL CORONARY ANGIOGRAM POSS PCI Routine 02/11/2024 2:21 PM MAINTENANCE SHOP TECHNICIAN Cardiovascular symptoms EKG 12 LEAD DAVID 02/11/2024 12:17 PM MAINTENANCE SHOP TECHNICIAN CBC W PLT NO DIFF DAVID 02/11/2024 12:08 PM MAINTENANCE SHOP TECHNICIAN BASIC METABOLIC PANEL DAVID 02/11/2024 12:08 PM MAINTENANCE SHOP TECHNICIAN PATH TISSUE EXAM Routine 02/02/2024 9:50 AM MAINTENANCE SHOP TECHNICIAN Rash and other nonspecific skin eruption AST (SGOT) Routine 02/01/2024 11:44 AM MAINTENANCE SHOP TECHNICIAN HFrEF (heart failure with reduced ejection fraction) (HC) Abnormal cardiac CT angiography SOB (shortness of breath) ALT (SGPT) Routine 02/01/2024 11:44 AM MAINTENANCE SHOP TECHNICIAN HFrEF (heart failure with reduced ejection fraction) (HC) Abnormal cardiac CT angiography SOB (shortness of breath) CBC W PLT NO DIFF Routine 02/01/2024 11:44 AM MAINTENANCE SHOP TECHNICIAN HFrEF (heart failure with reduced ejection fraction) (HC) Abnormal cardiac CT angiography SOB (shortness of breath) LIPID PANEL W REFLEX MEASURED LDL Routine 02/01/2024 11:44 AM MAINTENANCE SHOP TECHNICIAN HFrEF (heart failure with reduced ejection fraction) (HC) Abnormal cardiac CT angiography SOB (shortness of breath) CTA FRACTIONAL FLOW RESERVE DAVID 01/31/2024 12:27 PM MAINTENANCE SHOP TECHNICIAN Heart failure, unspecified HF chronicity, unspecified heart failure type (HC) Abnormal stress test Abnormal findings on diagnostic imaging of heart/coronary circulation CT CARDIAC CORONARY ARTERIES RAD DUAL READ DAVID 01/31/2024 12:27 PM MAINTENANCE SHOP TECHNICIAN Heart failure, unspecified HF chronicity, unspecified heart failure type (HC) Abnormal stress test PACER EDWARD DUAL CHAMBER W REPROG Routine 01/31/2024 11:00 AM MAINTENANCE SHOP TECHNICIAN PRO-BNP Routine 01/28/2024 1:30 PM MAINTENANCE SHOP TECHNICIAN HFrEF (heart failure with reduced ejection fraction) (HC) BASIC METABOLIC PANEL Routine 01/28/2024 1:30 PM MAINTENANCE SHOP TECHNICIAN HFrEF (heart failure with reduced ejection fraction) (HC) SCAN-EYE EXAM 01/19/2024 12:00 AM MAINTENANCE SHOP TECHNICIAN ECHO TTE COMPLETE WO CONTRAST DAVID 01/17/2024 3:49 PM MAINTENANCE SHOP TECHNICIAN HFrEF (heart failure with reduced ejection fraction) (HC) from Last 3 Months Results * US LOWER EXTREMITY SOFT TISSUE LEFT (04/13/2024 2:49 PM MAINTENANCE SHOP TECHNICIAN) Anatomical Region Laterality Modality ARM R Ultrasound 04/13/2024 3:00 PM MAINTENANCE SHOP TECHNICIAN Narrative 04/13/2024 3:00 PM MAINTENANCE SHOP TECHNICIAN For Patients: As a result of the Cures Act, medical imaging exams and procedure reports are released immediately into your electronic medical record. You may view this report before your referring provider. If you have questions, please contact your health care provider. Indication: Swelling with clinical concern for abscess. Technique: Sonography of the inferior left buttocks was performed at an area of swelling. Grayscale and color Doppler imaging was provided Comparison: None of this area Findings: Indurated cutaneous and subcutaneous tissues with fluid but no collection. This area is hyperemic at Doppler. This probably represents cellulitis. Impression: Findings consistent with cellulitis. No walled-off or discrete collection to suggest an abscess Dictated by Elfego Garcia MD @ 04/13/2024 3:00:08 PM (Electronically Signed) Procedure Note Elfego Garcia MD - 04/13/2024 For Patients: As a result of the Cures Act, medical imagingexams and procedure reports are released immediately into your electronicmedical record. You may view this report before your referring provider.If you have questions, please contact your health care provider. Indication: Swelling with clinical concern for abscess. Technique: Sonography of the inferior left buttocks was performed at an area ofswelling. Grayscale and color Doppler imaging was provided Comparison: None of this area Findings: Indurated cutaneous and subcutaneous tissues with fluid but no collection.This area is hyperemic at Doppler. This probably represents cellulitis. Impression: Findings consistent with cellulitis. No walled-off or discrete collectionto suggest an abscess Dictated by Elfego Garcia MD @ 04/13/2024 3:00:08 PM (Electronically Signed) us Lindsay Toscano MD US Final Result * SCAN-CARDIAC REHABILITATION (04/13/2024 12:04 PM MAINTENANCE SHOP TECHNICIAN) us Scanner OTHER Final Result * (ABNORMAL) CBC WITH AUTO DIFFERENTIAL (03/28/2024 8:03 AM MAINTENANCE SHOP TECHNICIAN) WHITE BLOOD COUNT 7.8 4.5 - 11.0 thou/cu mm 03/28/2024 8:48 AM [facility] RED BLOOD COUNT 3.41(L) 4.30 - 5.90 mil/cu mm 03/28/2024 8:48 AM [facility] HEMOGLOBIN 9.9(L) 13.5 - 17.5 g/dL 03/28/2024 8:48 AM [facility] HEMATOCRIT 33.1(L) 37.0 - 53.0 % 03/28/2024 8:48 AM [facility] MCV 97 80 - 100 fL 03/28/2024 8:48 AM [facility] MCH 29.0 26.0 - 34.0 pg 03/28/2024 8:48 AM [facility] MCHC 29.9(L) 32.0 - 36.0 g/dL 03/28/2024 8:48 AM [facility] RDW 14.6 11.5 - 15.5 % 03/28/2024 8:48 AM [facility] PLATELET COUNT 324 140 - 440 thou/cu mm 03/28/2024 8:48 AM [facility] MPV 10.2 6.5 - 11.0 fL 03/28/2024 8:48 AM [facility] % NEUT 68.9 % 03/28/2024 8:48 AM [facility] % LYMPH 17.7 % 03/28/2024 8:48 AM [facility] % MONO 8.9 % 03/28/2024 8:48 AM [facility] % EOS 4.4 % 03/28/2024 8:48 AM [facility] % BASO 0.1 % 03/28/2024 8:48 AM [facility] ABSOLUTE NEUTROPHILS 5.4 1.7 - 7.0 thou/cu mm 03/28/2024 8:48 AM [facility] ABSOLUTE LYMPHOCYTES 1.4 0.9 - 2.9 thou/cu mm 03/28/2024 8:48 AM [facility] ABSOLUTE MONOCYTES 0.7 <0.9 thou/cu mm 03/28/2024 8:48 AM [facility] ABSOLUTE EOSINOPHILS 0.3 <0.5 thou/cu mm 03/28/2024 8:48 AM [facility] ABSOLUTE BASOPHILS 0.0 <0.3 thou/cu mm 03/28/2024 8:48 AM [facility] Blood BLOOD SPECIMEN / Unknown Butterfly / Unknown 03/28/2024 8:03 AM MAINTENANCE SHOP TECHNICIAN 03/28/2024 8:35 AM MAINTENANCE SHOP TECHNICIAN us Edilma Sutherland NP HEMATOLOGY Final Resul t [facility] [address] [place] [address] * SCAN-CARDIAC STRIP (03/20/2024 8:42 AM MAINTENANCE SHOP TECHNICIAN) us Scanner OTHER Final Result * (ABNORMAL) GLUCOSE METER (03/20/2024 7:49 AM MAINTENANCE SHOP TECHNICIAN) Only the most recent of47 resultswithin the time period is included. GLUCOSE METER 164(H) 65 - 100 mg/dL 03/20/2024 7:50 AM MAINTENANCE SHOP TECHNICIAN [facility] Blood BLOOD SPECIMEN / Unknown 03/20/2024 7:49 AM MAINTENANCE SHOP TECHNICIAN 03/20/2024 7:50 AM MAINTENANCE SHOP TECHNICIAN Tonja Redman MD CHEMISTRY Final Res ult Performing Organization Address [facility] de Phone Number [facility] [address] [place] [address], * (ABNORMAL) HEMOGLOBIN (03/20/2024 6:42 AM MAINTENANCE SHOP TECHNICIAN) Only the most recent of9 resultswithin the time period is included. Pathologist [facility] HEMOGLOBIN 10.1(L) 13.5 - 17.5 g/dL 03/20/2024 7:07 AM MAINTENANCE SHOP [facility] MCV 93 80 - 100 fL 03/20/2024 7:07 AM MAINTENANCE SHOP TECHNICIAN [facility] Blood BLOOD SPECIMEN / Unknown Venipuncture / Unknown 03/20/2024 6:42 AM MAINTENANCE SHOP TECHNICIAN 03/20/2024 6:53 AM MAINTENANCE SHOP TECHNICIAN Anila Palacios NP HEMATOLOGY Final R esult Performing Organization Address [facility] de Phone Number [facility] [address] [place] [address], * (ABNORMAL) BASIC METABOLIC PANEL (03/20/2024 6:42 AM MAINTENANCE SHOP TECHNICIAN) Only the most recent of11 resultswithin the time period is included. SODIUM 138 136 - 145 mmol/L 03/20/2024 7:17 AM MAINTENANCE SHOP TECHNICIAN [facility] POTASSIUM 3.8 3.5 - 5.1 mmol/L 03/20/2024 7:17 AM MAINTENANCE SHOP TECHNICIAN [facility] CHLORIDE 101 98 - 107 mmol/L 03/20/2024 7:17 AM MAINTENANCE SHOP TECHNICIAN [facility] CO2,TOTAL 24 22 - 29 mmol/L 03/20/2024 7:17 AM [facility] ANION GAP 13 5 - 18 03/20/2024 7:17 AM [facility] GLUCOSE 172(H) 70 - 99 mg/dL 03/20/2024 7:17 AM [facility] CALCIUM 8.9 8.8 - 10.4 mg/dL 03/20/2024 7:17 AM [facility] Comment: Reference ranges for this test were updated on 01/04/2024 to reflect our healthy population more accurately. Reference range changes are not retroactively applied to results, but previous results using the same methodology can be interpreted in the context of the new reference range. BUN 26(H) 8 - 23 mg/dL 03/20/2024 7:17 AM [facility] CREATININE 1.10 0.70 - 1.20 mg/dL 03/20/2024 7:17 AM [facility] BUN/CREAT RATIO 24(H) 10 - 20 7:17 AM [facility] eGFR 65(L) >90 mL/min/1. 73m2 03/20/2024 7:17 AM [facility] Comment:As of 2021, eG FR is calculated by the CKD-EPI creatinine equation without race adjustment. eGFR can be influenced by muscle mass, exercise, and diet. The reported eGFR is an estimation only and is only applicable if the renal function is stable. Blood BLOOD SPECIMEN / Unknown Venipuncture / Unknown 03/20/2024 6:42 AM MAINTENANCE SHOP TECHNICIAN 03/20/2024 6:53 AM MAINTENANCE SHOP TECHNICIAN us Anila Palacios NP CHEMISTRY Final R esult [facility] [address] [place] [address], * SCAN-CARDIAC STRIP (03/20/2024 1:16 AM MAINTENANCE SHOP TECHNICIAN) us Scanner OTHER Final Result * SCAN-CARDIAC STRIP (03/19/2024 12:24 PM MAINTENANCE SHOP TECHNICIAN) us Scanner OTHER Final Result * SCAN-CARDIAC STRIP (03/19/2024 4:13 AM MAINTENANCE SHOP TECHNICIAN) us Scanner OTHER Final Result * POTASSIUM (03/18/2024 7:32 PM MAINTENANCE SHOP TECHNICIAN) Only the most recent of6 resultswithin the time period is included. POTASSIUM 4.1 3.5 - 5.1 mmol/L 03/18/2024 7:56 PM MAINTENANCE SHOP TECHNICIAN [facility] Blood BLOOD SPECIMEN / Unknown Venipuncture / Unknown 03/18/2024 7:32 PM MAINTENANCE SHOP TECHNICIAN 03/18/2024 7:38 PM MAINTENANCE SHOP TECHNICIAN us Tonja Redman MD CHEMISTRY Final Res ult [facility] [address] [place] [address], * SCAN-CARDIAC STRIP (03/18/2024 4:00 PM MAINTENANCE SHOP TECHNICIAN) us Scanner OTHER Final Result * SCAN-CARDIAC STRIP (03/17/2024 3:37 PM MAINTENANCE SHOP TECHNICIAN) us Scanner OTHER Final Result * SCAN-CARDIAC STRIP (03/17/2024 9:40 AM MAINTENANCE SHOP TECHNICIAN) us Scanner OTHER Final Result * SCAN-CARDIAC STRIP (03/16/2024 9:18 AM MAINTENANCE SHOP TECHNICIAN) us Scanner OTHER Final Result * MAGNESIUM (03/16/2024 7:05 AM MAINTENANCE SHOP TECHNICIAN) Only the most recent of7 resultswithin the time period is included. MAGNESIUM 2.1 1.6 - 2.4 mg/dL 03/16/2024 7:46 AM MAINTENANCE SHOP TECHNICIAN [facility] Blood BLOOD SPECIMEN / Unknown Venipuncture / Unknown 03/16/2024 7:05 AM MAINTENANCE SHOP TECHNICIAN 03/16/2024 7:11 AM MAINTENANCE SHOP TECHNICIAN us Tonja Redman MD CHEMISTRY Final Res ult [facility] [address] [place] [address], [place] * SCAN-CARDIAC STRIP (03/16/2024 1:39 AM MAINTENANCE SHOP TECHNICIAN) us Scanner OTHER Final Result * SCAN-CARDIAC STRIP (03/15/2024 10:18 PM MAINTENANCE SHOP TECHNICIAN) us Scanner OTHER Final Result * (ABNORMAL) CBC W PLT NO DIFF (03/15/2024 6:15 AM MAINTENANCE SHOP TECHNICIAN) Only the most recent of7 resultswithin the time period is included. WHITE BLOOD COUNT 10.0 4.5 - 11.0 thou/cu mm 03/15/2024 6:35 AM MAINTENANCE SHOP TECHNICIAN [facility] RED BLOOD COUNT 2.98(L) 4.30 - 5.90 mil/cu mm 03/15/2024 6:35 AM MAINTENANCE SHOP TECHNICIAN [facility] HEMOGLOBIN 9.1(L) 13.5 - 17.5 g/dL 03/15/2024 6:35 AM MAINTENANCE SHOP TECHNICIAN [facility] HEMATOCRIT 28.2(L) 37.0 - 53.0 % 03/15/2024 6:35 AM MAINTENANCE SHOP TECHNICIAN [facility] MCV 95 80 - 100 fL 03/15/2024 6:35 AM MAINTENANCE SHOP TECHNICIAN [facility] MCH 30.5 26.0 - 34.0 pg 03/15/2024 6:35 AM MAINTENANCE SHOP TECHNICIAN [facility] MCHC 32.3 32.0 - 36.0 g/dL 03/15/2024 6:35 AM [facility] RDW 14.1 11.5 - 15.5 % 03/15/2024 6:35 AM [facility] PLATELET COUNT 162 140 - 440 thou/cu mm 03/15/2024 6:35 AM MAINTENANCE SHOP TECHNICIAN [facility] MPV 10.9 6.5 - 11.0 fL 03/15/2024 6:35 AM MAINTENANCE SHOP TECHNICIAN [facility] NRBC 0.0 % 03/15/2024 6:35 AM MAINTENANCE SHOP TECHNICIAN [facility] ABS NRBC 0.0 thou /cu mm 03/15/2024 6:35 AM MAINTENANCE SHOP TECHNICIAN [facility] Blood BLOOD SPECIMEN / Unknown Venipuncture / Unknown 03/15/2024 6:15 AM MAINTENANCE SHOP TECHNICIAN 03/15/2024 6:30 AM MAINTENANCE SHOP TECHNICIAN us Mayelin Skinner NP HEMATOLOGY Final Result [facility] [address] [place] [address], [place] * SCAN-CARDIAC STRIP (03/15/2024 12:37 AM MAINTENANCE SHOP TECHNICIAN) us Scanner OTHER Final Result * SCAN-CARDIAC STRIP (03/14/2024 3:10 PM MAINTENANCE SHOP TECHNICIAN) us Scanner OTHER Final Result * SCAN-CARDIAC STRIP (03/13/2024 10:58 PM MAINTENANCE SHOP TECHNICIAN) us Scanner OTHER Final Result * EKG 12 LEAD (03/13/2024 1:09 PM MAINTENANCE SHOP TECHNICIAN) Only the most recent of5 resultswithin the time period is included. Interpretation Ventricular-paced rhythm with occasional and consecutive supraventricular complexes Abnormal ECG When compared with ECG of 11-Mar-2024 13:10, No significant change was found Anterior T wave inversion BEYOND NOW Ventricular Rate 70 BPM BEYOND NOW Atrial Rate 71 BPM BEYOND NOW P-R Interval ms BEYOND NOW QRS Duration 146 ms BEYOND NOW QT 434 ms BEYOND NOW QTc 468 ms BEYOND NOW P [place] degrees BEYOND NOW R [place] 47 degrees BEYOND NOW T [place] 0 degrees BEYOND NOW 03/13/2024 1:09 PM MAINTENANCE SHOP TECHNICIAN 03/14/2024 5:29 PM MAINTENANCE SHOP TECHNICIAN us Mayelin Skinner PAPER TWISTER EKG ORD Final Result [place]OND NOW [place] * SCAN-CARDIAC STRIP (03/13/2024 9:12 AM MAINTENANCE SHOP TECHNICIAN) Scanner OTHER Final Result * Protime-INR (03/13/2024 8:22 AM MAINTENANCE SHOP TECHNICIAN) Only the most recent of5 resultswithin the time period is included. INR 1.0 <1.3 03/13/2024 8:49 AM MAINTENANCE SHOP TECHNICIAN [facility] PROTIME 11.9 10.6 - 12.4 sec 03/13/2024 8:49 AM MAINTENANCE SHOP TECHNICIAN [facility] Blood BLOOD SPECIMEN / Unknown Venipuncture / Unknown 03/13/2024 8:22 AM MAINTENANCE SHOP TECHNICIAN 03/13/2024 8:33 AM MAINTENANCE SHOP TECHNICIAN Narrative [facility] - 03/13/2024 8:49 AM MAINTENANCE SHOP TECHNICIAN Therapeutic Range 2.0-3.0 for most anticoagulated patients 2.5-3.5 or 4.0 for high risk patients The INR is only used for patients on stable oral anticoagulant therapy. It makes no significant contribution to the diagnosis or treatment of patients whose Protime is prolonged for other reasons. INR results are increased when heparin levels exceed 1.0 U/mL, which corresponds to an aPTT >125 seconds if the patient is on UFH. us Tonja Redman MD HEMATOLOGY Final Res ult [facility] [address] [place] [address], * PHOSPHORUS (03/13/2024 8:22 AM MAINTENANCE SHOP TECHNICIAN) PHOSPHORUS 3.1 2.5 - 4.5 mg/dL 03/13/2024 9:06 AM MAINTENANCE SHOP TECHNICIAN [facility] Blood BLOOD SPECIMEN / Unknown Venipuncture / Unknown 03/13/2024 8:22 AM MAINTENANCE SHOP TECHNICIAN 03/13/2024 8:33 AM MAINTENANCE SHOP TECHNICIAN Cain Monet MD CHEMISTRY Maia l Result [facility] [address] [place] [address], [place] * CALCIUM IONIZED HOSPITAL DRAW ONLY (03/13/2024 8:22 AM MAINTENANCE SHOP TECHNICIAN) Only the most recent of6 resultswithin the time period is included. CALCIUM,IONIZE D 1.23 1.15 - 1.27 mmol/L 03/13/2024 8:37 AM MAINTENANCE SHOP TECHNICIAN [facility] Blood BLOOD SPECIMEN / Unknown Venipuncture / Unknown 03/13/2024 8:22 AM MAINTENANCE SHOP TECHNICIAN 03/13/2024 8:33 AM MAINTENANCE SHOP TECHNICIAN Cain Monet MD CHEMISTRY Maia l Result Performing Organization Address [facility] Co de Phone Number [facility] [address] [place] [address], [place] * XR CHEST 1 VIEW PORTABLE (03/13/2024 8:13 AM MAINTENANCE SHOP TECHNICIAN) Only the most recent of5 resultswithin the time period is included. Anatomical Region Laterality Modality HEART, THORAX, CHEST Digital Rad iography 03/13/2024 9:00 AM MAINTENANCE SHOP TECHNICIAN Impressions 03/13/2024 9:00 AM MAINTENANCE SHOP TECHNICIAN 1. Resolved left pneumothorax. 2. Small bilateral pleural effusions. Dictated by Kristen Pelayo MD @ Mar 13 2024 9:00AM (Electronically Signed) [email or web address] Narrative 03/13/2024 9:00 AM MAINTENANCE SHOP TECHNICIAN For Patients: As a result of the Century Cures Act, medical imaging exams and procedure reports are released immediately into your electronic medical record. You may view this report before your referring provider. If you have questions, please contact your health care provider. INDICATION: Follow-up pneumothorax TECHNIQUE: 1 view chest radiograph COMPARISON: 03/12/2024 FINDINGS: Devices: Left subclavian transvenous pacemaker. Left atrial appendage device. Surgical screws both humeral heads. The right IJ central venous catheter has been removed. Lung volumes are moderate. Bibasilar opacities are probably atelectasis. Small bilateral pleural effusion. No pneumothorax. Heart size is large but unchanged. Median sternotomy wires are in place. Procedure Note Kristen Pelayo MD - 03/13/2024 For Patients: As a result of the Cures Act, medical imagingexams and procedure reports are released immediately into your electronicmedical record. You may view this report before your referring provider.If you have questions, please contact your health care provider. INDICATION: Follow-up pneumothorax TECHNIQUE: 1 view chest radiograph COMPARISON: 03/12/2024 FINDINGS: Devices: Left subclavian transvenous pacemaker. Left atrial appendagedevice. Surgical screws both humeral heads. The right IJ central venouscatheter has been removed. Lung volumes are moderate. Bibasilar opacities are probably atelectasis.Small bilateral pleural effusion. No pneumothorax. Heart size is large butunchanged. Median sternotomy wires are in place. IMPRESSION: 1. Resolved left pneumothorax. 2. Small bilateral pleural effusions. Dictated by Kristen Pelayo MD @ Mar 13 2024 9:00AM (Electronically Signed) [email or web address] Cain Monet MD GENERAL IMAGING Maia l Result * SCAN-CARDIAC STRIP (03/13/2024 1:29 AM MAINTENANCE SHOP TECHNICIAN) us Scanner OTHER Final Result * TRANSFUSE RBC (NURSE COMMUNICATION ORDER) (03/12/2024 4:55 PM MAINTENANCE SHOP TECHNICIAN) Blood BLOOD SPECIMEN / Unknown us Kristen GIL NURSING BLOOD BANK Final Result * (ABNORMAL) SODIUM (03/12/2024 3:56 PM MAINTENANCE SHOP TECHNICIAN) SODIUM 131(L) 136 - 145 mmol/L 03/12/2024 4:19 PM MAINTENANCE SHOP TECHNICIAN [facility] Blood BLOOD SPECIMEN / Unknown Non-Lab Venipuncture / Unknown 03/12/2024 3:56 PM MAINTENANCE SHOP TECHNICIAN 03/12/2024 4:01 PM MAINTENANCE SHOP TECHNICIAN us Cain Monet MD CHEMISTRY Maia l Result Performing Organization Address [facility]/ZIP Co de Phone Number [facility] [address] [address], [place] * (ABNORMAL) URINALYSIS MICROSCOPIC (03/12/2024 11:35 AM MAINTENANCE SHOP TECHNICIAN) RBC 11-25(A) 0-2, None Seen /HPF 03/12/2024 12:42 PM MAINTENANCE SHOP TECHNICIAN [facility] WBC 6-10(A) 0-2, 3-5, None Seen /HPF 03/12/2024 12:42 PM MAINTENANCE SHOP TECHNICIAN [facility] BACTERIA Rare None Seen, Rare, Few Bacteria/ HPF 03/12/2024 12:42 PM MAINTENANCE SHOP TECHNICIAN [facility] EPITHELIAL CELLS None Seen None Seen, Few Epi/HPF 03/12/2024 12:42 PM MAINTENANCE SHOP TECHNICIAN [facility] HYALINE CASTS 11-25(A) 0-2, 3-5 /LPF 03/12/2024 12:42 PM MAINTENANCE SHOP TECHNICIAN [facility] GRANULAR CASTS 0-2(A) (none) /LPF 03/12/2024 12:42 PM MAINTENANCE SHOP TECHNICIAN [facility] Urine URINE SPECIMEN / Unknown Non-Blood / Unknown 03/12/2024 11:35 AM MAINTENANCE SHOP TECHNICIAN 03/12/2024 12:19 PM MAINTENANCE SHOP TECHNICIAN Kristen Ramírez PA URINE Final Re sult Performing Organization Address [facility]/ZIP Co de Phone Number [facility] [address] [address], [place] * (ABNORMAL) UA W/ SEDIMENT EXAM REFLEXED PER CRITERIA (03/12/2024 11:35 AM MAINTENANCE SHOP TECHNICIAN) COLOR Yellow Yellow Color 03/12/2024 12:42 PM MAINTENANCE SHOP TECHNICIAN [facility] CLARITY Cloudy(A) Clear Clarity 03/12/2024 12:42 PM MAINTENANCE SHOP TECHNICIAN [facility] SPECIFIC GRAVITY,URINE >=1.030(A) 1.010, 1.015, 1.020, 1.025 03/12/2024 12:42 PM MAINTENANCE SHOP TECHNICIAN [facility] PH,URINE 5.0(A) 6.0, 7.0, 8.0, 5.5, 6.5, 7.5, 8.5 03/12/2024 12:42 PM [facility] UROBILINOGEN, QUALITATIVE Normal Normal EU/dl 03/12/2024 12:42 PM [facility] PROTEIN, URINE 30(A) Negative mg/dL 03/12/2024 12:42 PM [facility] GLUCOSE, URINE >=1000(A) Negative mg/dL 03/12/2024 12:42 PM [facility] KETONES,URINE 15(A) Negative mg/dL 03/12/2024 12:42 PM MAINTENANCE SHOP TECHNICIAN [facility] BILIRUBIN,URI NE Negative Negative 03/12/2024 12:42 PM [facility] OCCULT BLOOD,URINE Moderate(A) Negative 03/12/2024 12:42 PM [facility] NITRITE Negative Negative 03/12/2024 12:42 PM [facility] LEUKOCYTE ESTERASE Negative Negative 03/12/2024 12:42 PM [facility] Urine URINE SPECIMEN / Unknown Non-Blood / Unknown 03/12/2024 11:35 AM MAINTENANCE SHOP TECHNICIAN 03/12/2024 12:19 PM MAINTENANCE SHOP TECHNICIAN us Kristen GIL URINE Final Re sult [facility] [address] [place] [address], [place] * RBC W/O TYPE & SCREEN (03/12/2024 10:34 AM MAINTENANCE SHOP TECHNICIAN) Only the most recent of2 resultswithin the time period is included. QUANTITY 1 03/12/2024 10:34 AM MAINTENANCE SHOP TECHNICIAN [facility] Blood BLOOD SPECIMEN / Unknown 03/12/2024 9:12 AM MAINTENANCE SHOP TECHNICIAN Kristen GIL BLOOD BANK Final Re sult Performing Organization Address City/[facility]/ZIP Co de Phone Number [facility] [address] [place] [address], * LACTATE ARTERIAL (03/12/2024 3:35 AM MAINTENANCE SHOP TECHNICIAN) Only the most recent of3 resultswithin the time period is included. Pathologist [facility] LACTATE,ARTERI AL 1.1 0.5 - 1.6 mmol/L 03/12/2024 4:07 AM MAINTENANCE SHOP TECHNICIAN [facility] Blood BLOOD SPECIMEN / Unknown Non-Lab Venipuncture / Unknown 03/12/2024 3:35 AM MAINTENANCE SHOP TECHNICIAN 03/12/2024 3:44 AM MAINTENANCE SHOP TECHNICIAN Ne Bailey MD CHEMISTRY F inal Result Performing Organization Address [facility] Co de Phone Number [facility] [address] [place] [address], * (ABNORMAL) O2 SATURATION,MEASURED (03/12/2024 3:35 AM MAINTENANCE SHOP TECHNICIAN) Only the most recent of2 resultswithin the time period is included. Pathologist [facility] O2 SATURATION,JUANI SURED 65 % 03/12/2024 3:56 AM MAINTENANCE SHOP TECHNICIAN [facility] HEMOGLOBIN,BLO OD GAS 8.4(L) 13.5 - 17.5 g/dL 03/12/2024 3:56 AM MAINTENANCE SHOP TECHNICIAN [facility] SOURCE, O2M Venous 03/12/2024 3:56 AM MAINTENANCE SHOP TECHNICIAN [facility] Blood BLOOD SPECIMEN / Unknown Non-Lab Venipuncture / Unknown 03/12/2024 3:35 AM MAINTENANCE SHOP TECHNICIAN 03/12/2024 3:45 AM MAINTENANCE SHOP TECHNICIAN Narrative [facility] - 03/12/2024 3:56 AM MAINTENANCE SHOP TECHNICIAN Reference Range for: Arterial Source (94-98) Non-Arterial Source (70-75) Ne Bailey MD CHEMISTRY F inal Result Performing Organization Address [facility]/ZIP Co de Phone Number [facility] [address] [place] [address], [place] * AMMONIA (03/12/2024 3:35 AM MAINTENANCE SHOP TECHNICIAN) Only the most recent of2 resultswithin the time period is included. Pathologist [facility] AMMONIA 20 11 - 51 umol/L 03/12/2024 4:07 AM MAINTENANCE SHOP TECHNICIAN [facility] Blood BLOOD SPECIMEN / Unknown Non-Lab Venipuncture / Unknown 03/12/2024 3:35 AM MAINTENANCE SHOP TECHNICIAN 03/12/2024 3:44 AM MAINTENANCE SHOP TECHNICIAN Narrative [facility] - 03/12/2024 4:07 AM MAINTENANCE SHOP TECHNICIAN 1. Sulfasalazine and its metabolite Sulfapyridine at therapeutic concentrations may lead to falsely low results. 2. Temozolomide and its metabolite MTIC may lead to falsely elevated results, and its metabolite AIC may lead to falsely low results. Cain Monet MD CHEMISTRY Maia l Result Performing Organization Address [facility]/ZIP Co de Phone Number [facility] [address] [place] [address], [place] * (ABNORMAL) COMP METABOLIC PANEL (03/12/2024 3:35 AM MAINTENANCE SHOP TECHNICIAN) SODIUM 132(L) 136 - 145 mmol/L 03/12/2024 4:12 AM MAINTENANCE SHOP TECHNICIAN [facility] POTASSIUM 3.9 3.5 - 5.1 mmol/L 03/12/2024 4:12 AM MAINTENANCE SHOP TECHNICIAN [facility] CHLORIDE 100 98 - 107 mmol/L 03/12/2024 4:12 AM MAINTENANCE SHOP TECHNICIAN [facility] CO2,TOTAL 21(L) 22 - 29 mmol/L 03/12/2024 4:12 AM MAINTENANCE SHOP TECHNICIAN [facility] ANION GAP 11 5 - 18 03/12/2024 4:12 AM [facility] GLUCOSE 255(H) 70 - 99 mg/dL 03/12/2024 4:12 AM [facility] CALCIUM 8.6(L) 8.8 - 10.4 mg/dL 03/12/2024 4:12 AM [facility] Comment: Reference ranges for this test were updated on 01/04/2024 to reflect our healthy population more accurately. Reference range changes are not retroactively applied to results, but previous results using the same methodology can be interpreted in the context of the new reference range. BUN 15 8 - 23 mg/dL 03/12/2024 4:12 AM [facility] CREATININE 0.95 0.70 - 1.20 mg/dL 03/12/2024 4:12 AM [facility] BUN/CREAT RATIO 16 10 - 20 4:12 AM [facility] eGFR 78(L) >90 mL/min/1. 73m2 03/12/2024 4:12 AM [facility] Comment:As of 2021, eG FR is calculated by the CKD-EPI creatinine equation without race adjustment. eGFR can be influenced by muscle mass, exercise, and diet. The reported eGFR is an estimation only and is only applicable if the renal function is stable. ALBUMIN 3.5(L) 4.0 - 4.9 g/dL 03/12/2024 4:12 AM [facility] PROTEIN,TOTAL 5.2(L) 6.0 - 8.0 g/dL 03/12/2024 4:12 AM [facility] BILIRUBIN,TOTAL 2.7(H) 0.0 - 1.2 mg/dL 03/12/2024 4:12 AM [facility] ALK PHOSPHATASE 53 40 - 129 IU/L 03/12/2024 4:12 AM [facility] ALT (SGPT) 7(L) 10 - 50 IU/L 03/12/2024 4:12 AM MAINTENANCE SHOP TECHNICIAN [facility] AST (SGOT) 29 10 - 50 IU/L 03/12/2024 4:12 AM MAINTENANCE SHOP TECHNICIAN [facility] Blood BLOOD SPECIMEN / Unknown Non-Lab Venipuncture / Unknown 03/12/2024 3:35 AM MAINTENANCE SHOP TECHNICIAN 03/12/2024 3:44 AM MAINTENANCE SHOP TECHNICIAN us Cain Monet MD CHEMISTRY Maia l Result Performing Organization Address [facility] Co de Phone Number [facility] [address] [place] [address], [place] * PLATELET COUNT (03/11/2024 3:55 AM MAINTENANCE SHOP TECHNICIAN) Only the most recent of3 resultswithin the time period is included. PLATELET COUNT 152 140 - 440 thou/cu mm 03/11/2024 4:10 AM MAINTENANCE SHOP TECHNICIAN [facility] MPV 10.3 6.5 - 11.0 fL 03/11/2024 4:10 AM MAINTENANCE SHOP TECHNICIAN [facility] Blood BLOOD SPECIMEN / Unknown Non-Lab Venipuncture / Unknown 03/11/2024 3:55 AM MAINTENANCE SHOP TECHNICIAN 03/11/2024 4:05 AM MAINTENANCE SHOP TECHNICIAN us Luann Camarillo MD HEMATOLOGY Final Resu lt Performing Organization Address [facility] de Phone Number [facility] [address] [place] [address], * (ABNORMAL) ARTERIAL BLOOD GAS (03/11/2024 12:32 AM MAINTENANCE SHOP TECHNICIAN) Only the most recent of2 resultswithin the time period is included. PH, ARTERIAL 7.45 7.35 - 7.45 03/11/2024 12:46 AM MAINTENANCE SHOP TECHNICIAN [facility] PCO2, ARTERIAL 33(L) 35 - 48 mmHg 03/11/2024 12:46 AM MAINTENANCE SHOP TECHNICIAN [facility] PO2, ARTERIAL 126(H) 83 - 108 mmHg 03/11/2024 12:46 AM MAINTENANCE SHOP TECHNICIAN [facility] HCO3, ARTERIAL 23 21 - 28 mmol/L 03/11/2024 12:46 AM MAINTENANCE SHOP TECHNICIAN [facility] BASE EXCESS, ARTERIAL -0.4 -2.0 - 3.0 03/11/2024 12:46 AM MAINTENANCE SHOP TECHNICIAN [facility] O2 SATURATION, ARTERIAL 100(H) 94 - 98 % 03/11/2024 12:46 AM MAINTENANCE SHOP TECHNICIAN [facility] INSPIRED O2 40 03/11/2024 12:46 AM MAINTENANCE SHOP TECHNICIAN [facility] Comment:Unit of Measure: Lit ers (L) if <=20; Percent (%) if >20 PATIENT TEMPERATURE 37.3 Degrees C 03/11/2024 12:46 AM [facility] Blood ARTERIAL BLOOD SPECIMEN / Unknown Non-Lab Venipuncture / Unknown 03/11/2024 12:32 AM MAINTENANCE SHOP TECHNICIAN 03/11/2024 12:40 AM MAINTENANCE SHOP TECHNICIAN Tonja Redman MD CHEMISTRY Final Res ult Performing Organization Address City/[facility]/ZIP Co de Phone Number [facility] [address] [address], [place] * (ABNORMAL) Thrombin Time - Immediate Postop (03/10/2024 5:47 PM MAINTENANCE SHOP TECHNICIAN) THROMBIN TIME 17(H) <16 sec 03/10/2024 6:05 PM MAINTENANCE SHOP TECHNICIAN [facility] Blood BLOOD SPECIMEN / Unknown Non-Lab Venipuncture / Unknown 03/10/2024 5:47 PM MAINTENANCE SHOP TECHNICIAN 03/10/2024 5:54 PM MAINTENANCE SHOP TECHNICIAN Tonja Redman MD HEMATOLOGY Final Res ult [facility] [address] [place] [address], [place] * (ABNORMAL) CREATININE (03/10/2024 5:47 PM MAINTENANCE SHOP TECHNICIAN) eGFR 87(L) >90 mL/min/1.7 3m2 03/10/2024 9:19 PM MAINTENANCE SHOP TECHNICIAN [facility] Comment:As of 2021, eG FR is calculated by the CKD-EPI creatinine equation without race adjustment. eGFR can be influenced by muscle mass, exercise, and diet. The reported eGFR is an estimation only and is only applicable if the renal function is stable. CREATININE 0.77 0.70 - 1.20 mg/dL 03/10/2024 9:19 PM MAINTENANCE SHOP TECHNICIAN [facility] Blood BLOOD SPECIMEN / Unknown Non-Lab Venipuncture / Unknown 03/10/2024 5:47 PM MAINTENANCE SHOP TECHNICIAN 03/10/2024 5:54 PM MAINTENANCE SHOP TECHNICIAN Tonja Redman MD CHEMISTRY Final Res ult Performing Organization Address City/[facility]/ZIP Co de Phone Number [facility] [address] [address], [place] * APTT - Immediate Postop (03/10/2024 5:47 PM MAINTENANCE SHOP TECHNICIAN) APTT 29 25 - 36 sec 03/10/2024 6:05 PM MAINTENANCE SHOP TECHNICIAN [facility] Blood BLOOD SPECIMEN / Unknown Non-Lab Venipuncture / Unknown 03/10/2024 5:47 PM MAINTENANCE SHOP TECHNICIAN 03/10/2024 5:54 PM MAINTENANCE SHOP TECHNICIAN Narrative [facility] - 03/10/2024 6:05 PM MAINTENANCE SHOP TECHNICIAN Therapeutic Range: 59-89 seconds Tonja Redman MD HEMATOLOGY Final Res ult [facility] [address] [address], [place] * Fibrinogen, Quantitative - Immediate Postop (03/10/2024 5:47 PM MAINTENANCE SHOP TECHNICIAN) Only the most recent of2 resultswithin the time period is included. FIBRINOGEN,LINCOLN NTITATIVE 242 193 - 401 mg/dL 03/10/2024 6:10 PM MAINTENANCE SHOP TECHNICIAN [facility] Blood BLOOD SPECIMEN / Unknown Non-Lab Venipuncture / Unknown 03/10/2024 5:47 PM MAINTENANCE SHOP TECHNICIAN 03/10/2024 5:54 PM MAINTENANCE SHOP TECHNICIAN us Tonja Redman MD HEMATOLOGY Final Res ult [facility] [address] [place] [address], [place] * TRANSFUSE CRYOPRECIPITATE (NURSE COMMUNICATION ORDER) (03/10/2024 4:56 PM MAINTENANCE SHOP TECHNICIAN) Blood BLOOD SPECIMEN / Unknown us Marino Teesanjuanita Rain HEADING UP MACHINE OPERATOR NURSING BLOOD BAN K Final Result * TRANSFUSE PLT (NURSE COMMUNICATION ORDER) (03/10/2024 4:32 PM MAINTENANCE SHOP TECHNICIAN) Blood BLOOD SPECIMEN / Unknown Marino Josesanjuanita Rain CRNA NURSING BLOOD BAN K Final Result * TRANSFUSE PLT (NURSE COMMUNICATION ORDER) (03/10/2024 4:32 PM MAINTENANCE SHOP TECHNICIAN) Blood BLOOD SPECIMEN / Unknown Marino Garcia Koffi HEADING UP MACHINE OPERATOR NURSING BLOOD BAN K Final Result * TRANSFUSE PLASMA (NURSE COMMUNICATION ORDER) (03/10/2024 4:29 PM MAINTENANCE SHOP TECHNICIAN) Blood BLOOD SPECIMEN / Unknown Marino Teesanjuanita Rain HEADING UP MACHINE OPERATOR NURSING BLOOD BAN K Final Result * PLASMA ORDER, 2 units (03/10/2024 4:18 PM MAINTENANCE SHOP TECHNICIAN) QUANTITY 2 03/10/2024 4:1 8 PM MAINTENANCE SHOP TECHNICIAN [facility] Blood BLOOD SPECIMEN / Unknown 03/10/2024 4:11 PM MAINTENANCE SHOP TECHNICIAN us Nataliya Linares MD BLOOD BANK Edited Result - Final [facility] [address] [place] [address], [place] [phone] * PLATELET ORDER, 1 unit (03/10/2024 4:18 PM MAINTENANCE SHOP TECHNICIAN) Only the most recent of2 resultswithin the time period is included. QUANTITY 1 03/10/2024 4:1 8 PM MAINTENANCE SHOP TECHNICIAN [facility] LAB BLOOD BANK Blood BLOOD SPECIMEN / Unknown 03/10/2024 4:11 PM MAINTENANCE SHOP TECHNICIAN Nataliya Linares MD BLOOD BANK Final R esult [facility] BLOOD BANK [address] [place] [address], [place] [phone] * CRYOPRECIPITATE ORDER, 1 Pools (03/10/2024 4:18 PM MAINTENANCE SHOP TECHNICIAN) Pathologist [facility] QUANTITY 1 03/10/2024 4:1 8 PM MAINTENANCE SHOP TECHNICIAN [facility]ITALCliftonCENTR[facility] Blood BLOOD SPECIMEN / Unknown 03/10/2024 4:11 PM MAINTENANCE SHOP TECHNICIAN Nataliya Linares MD BLOOD BANK Final R esult Performing Organization Address City/[facility]/ZIP Co de Phone Number [facility] [address] [place] [address], [place] [phone] * PLATELET EA UNIT (03/10/2024 4:15 PM MAINTENANCE SHOP TECHNICIAN) Only the most recent of2 resultswithin the time period is included. [facility] PRODUCT BLOOD TYPE O Rh Positive [facility] flipClassCENTRAL LAB BLOOD BANK PRODUCT ID NUMBER [id number] [facility] clipkit-CENTRAL LAB BLOOD BANK PRODUCT STATUS Transfused [facility] clipkit-CENTRAL LAB BLOOD BANK PRODUCT DESCRIPTION SDP ACD-A IRR LR Pt1 [facility] flipClassCENTRAL LAB BLOOD BANK PRODUCT CODE [id number] [facility] flipClassCENTRAL LAB BLOOD BANK ISSUE DATE/TIME 03/10/24 16:23 [facility] LAB BLOOD BANK Nataliya Linares MD BLOOD BANK Edited Result - Final [facility] LAB-CENTRAL LAB BLOOD BANK [address] [place] [address], * PLASMA SNGL DON FFPEA UNIT (03/10/2024 4:15 PM MAINTENANCE SHOP TECHNICIAN) Only the most recent of2 resultswithin the time period is included. PRODUCT BLOOD TYPE O Rh Positive [employer] LAB-CENTRAL LAB BLOOD BANK PRODUCT ID NUMBER [id number] [facility] ([employer] LAB-CENTRAL LAB BLOOD BANK PRODUCT STATUS Transfused [employer] LAB-CENTRAL LAB BLOOD BANK PRODUCT DESCRIPTION FP ACD-A Thaw [employer] LAB-CENTRAL LAB BLOOD BANK PRODUCT CODE [id number] [facility] ([employer] LAB-CENTRAL LAB BLOOD BANK ISSUE DATE/TIME 03/10/24 16:19 [facility] LAB BLOOD BANK Nataliya Linares MD BLOOD BANK Edited Result - Final Performing Organization Address City/[facility]/ZIP Co de Phone Number [facility]TRAL LAB BLOOD BANK [address] [place] [address], * CRYOPRECIPITATE EA UNIT (03/10/2024 4:15 PM MAINTENANCE SHOP TECHNICIAN) Only the most recent of2 resultswithin the time period is included. PRODUCT BLOOD TYPE O Rh Positive [employer] LAB-CENTRAL LAB BLOOD BANK PRODUCT ID NUMBER [id number] [facility] ([employer] LAB-CENTRAL LAB BLOOD BANK PRODUCT STATUS Transfused [employer] LAB-CENTRAL LAB BLOOD BANK PRODUCT DESCRIPTION CRYO [facility]ell[facility]-C[facility]TRAL LAB BLOOD [facility]ANK PRODUCT CODE [id number] [facility] LAB BLOOD BANK ISSUE DATE/TIME 03/10/24 16:47 [facility] clipkit-CENTRAL LAB BLOOD BANK Nataliya Linares MD BLOOD BANK Edited Result - Final [facility] BLOOD BANK [address] [place] [address], * TRANSFUSE RBC (NURSE COMMUNICATION ORDER) (03/10/2024 3:47 PM MAINTENANCE SHOP TECHNICIAN) Blood BLOOD SPECIMEN / Unknown Marino Rain [facility] NURSING BLOOD BAN K Final Result * (ABNORMAL) Cardiac Thromboelastography (03/10/2024 3:35 PM MAINTENANCE SHOP TECHNICIAN) ANA REASON Cardiac Weaning Pre-Protamin e Panel 03/10/2024 5:36 PM MAINTENANCE SHOP TECHNICIAN [facility] TRAL LABORATORY INTEM CT >365(H) 139 - 205 s 03/10/2024 5:36 PM MAINTENANCE SHOP TECHNICIAN [facility] TRAL LABORATORY EXTEM CT 145(H) 51 - 73 s 03/10/2024 5:36 PM MAINTENANCE SHOP TECHNICIAN [facility] TRAL LABORATORY EXTEM A5 41 33 - 52 mm 03/10/2024 5:36 PM MAINTENANCE SHOP TECHNICIAN [facility] TRAL LABORATORY EXTEM A10 52 45 - 62 mm 03/10/2024 5:36 PM MAINTENANCE SHOP TECHNICIAN [facility] TRAL [facility] EXTEM A20 59 54 - 69 mm 03/10/2024 5:36 PM MAINTENANCE SHOP TECHNICIAN [facility]AL LAB[facility] EXTEM MCF 61 57 - 72 mm 03/10/2024 5:36 PM MAINTENANCE SHOP TECHNICIAN [facility] TRAL LABORATORY EXTEM ML 3 0 - 6 % 03/10/2024 5:36 PM MAINTENANCE SHOP TECHNICIAN [facility] TRAL LABORATORY EXTEM LI60 98 94 - 100 % 03/10/2024 5:36 PM MAINTENANCE SHOP TECHNICIAN [facility] TRAL LABORATORY FIBTEM A5 10 5 - 16 mm 03/10/2024 5:36 PM MAINTENANCE SHOP TECHNICIAN [facility] TRAL LAB[facility]ORY FIBTEM A10 12 6 - 17 mm 03/10/2024 5:36 PM MAINTENANCE SHOP TECHNICIAN [facility] TRAL LABORATORY FIBTEM A20 13 6 - 18 mm 03/10/2024 5:36 PM MAINTENANCE SHOP TECHNICIAN [facility] TRAL LABORATORY FIBTEM MCF 13 6 - 19 mm 03/10/2024 5:36 PM MAINTENANCE SHOP TECHNICIAN [facility] TRAL LABORATORY HEPTEM CT 251(H) 141 - 215 s 03/10/2024 5:36 PM MAINTENANCE SHOP TECHNICIAN [facility] HE[place] A5 36 33 - 51 mm 03/10/2024 5:36 PM MAINTENANCE SHOP TECHNICIAN [facility] [place] A10 47 44 - 61 mm 03/10/2024 5:36 PM MAINTENANCE SHOP TECHNICIAN [facility] [place] A20 55 52 - 67 mm 03/10/2024 5:36 PM MAINTENANCE SHOP TECHNICIAN [facility] TRAL [facility]AT[facility] HEPTEM MCF 56 54 - 69 mm 03/10/2024 5:36 PM MAINTENANCE SHOP TECHNICIAN [facility] Blood BLOOD SPECIMEN / Unknown Non-Lab Venipuncture / Unknown 03/10/2024 3:35 PM MAINTENANCE SHOP TECHNICIAN 03/10/2024 3:44 PM MAINTENANCE SHOP TECHNICIAN us Marino Rain CRNA HEMATOLOGY F inal Result [facility] [address] [place] [address], [place] * RED BLOOD CELLS EA UNIT (03/10/2024 3:30 PM MAINTENANCE SHOP TECHNICIAN) Only the most recent of2 resultswithin the time period is included. [facility] CROSSMATCH Compatible Compatible [facility] GoNogging LAB BLOOD BANK PRODUCT BLOOD TYPE O Rh Positive [facility] [employer] LAB BLOOD BANK PRODUCT ID NUMBER [id number] [facility] OndeegoG[place] LAB BLOOD BANK PRODUCT STATUS Transfused [facility] Flixel Photos-CENTRAL LAB BLOOD BANK PRODUCT DESCRIPTION RBC -1 LR [facility] LAB BLOOD BANK PRODUCT CODE [id number] [facility] LAB BLOOD BANK ISSUE DATE/TIME 03/10/24 15:30 [facility] PeerIndex LAB BLOOD BANK us Nataliya Linares MD BLOOD BANK Edited Result - Final [facility] OndeegoCENTRAL LAB BLOOD BANK [address] [place] [address], [place] [phone] * FANG (03/10/2024 3:10 PM MAINTENANCE SHOP TECHNICIAN) Narrative Nataliya Linares MD - 03/10/2024 6:54 PM MAINTENANCE SHOP TECHNICIAN Nataliya Linares MD 03/10/2024 3:11 PM FANG Completed: Patient identified, risks and benefits discussed, monitors and equipment assessed and anesthesia consent obtained. General Procedure Information Diagnostic Indications for Echo: assessment of surgical repair, assessment of cardiac structure and function and elective. Location performed: OR procedure room Probe Insertion: easy Probe Type: multiplane Intubated: yes Stomach suctioned: no Bite block inserted Anesthesia Information Anesthesiologist: Nataliya Linares MD Surgeon: Tonja Redman MD Echocardiogram Comments: See [employer] for report. us Nataliya Linares MD ANESTHESIA PX NOTE ORDE RABLES Final Result * CVC TRIPLE LUMEN, HCHG STOPCOCK PR5, HCHG ANES US GUIDE FOR VASC ACCESS, HCHG TUBING PR5, HCHG CATHINFUSION PR30, HCHG ADPTR PR1, HCHG KIT MONITORING PR5, HCHG TUBING PR5, HCHG DRSG PR5, HCHG DRSG PR1, AHC AN INTRODUCER 2 LUMEN PERFORMABLE, HCHG KIT PR5, HCHG CATH INFUSION PR70 (03/10/2024 3:10 PMCST) Narrative Nataliya Linares MD - 03/10/2024 3:10 PM MAINTENANCE SHOP TECHNICIAN Nataliya Linares MD 03/10/2024 3:10 PM CVC Patient location during procedure: OR Indications: CVP monitoring and vascular access Completed: patient identified, risks and benefits discussed, consent obtained, hand hygiene performed, gown, full-body drape, chloraprep used and completely dried prior to procedure, cap, mask, gloves and timeout performed CVC Patient position: Trendelenburg Laterality: right Site: internal jugular Ultrasound guidance: live ultrasound, ultrasound permanent image saved and sterile gel and probe cover used in ultrasound-guided central venous catheter insertion. Needle localization (ultrasound): no pathologic findings, selected vessel patent, potential access sites evaluated, anatomically normal and needle visualized entering selected vessel. Confirmation: wire visualized in vein by ultrasound Port Insertion: all ports aspirated and all ports flushed easily Securement/Dressing: Biopatch applied, line sutured in place, dressing applied Catheter Catheter size: 9 Fr Catheter length: 11.5 cm Number of Lumens: double lumen Introducer present: yes Introducer type: TLIC us Nataliya Linares MD ANESTHESIA PX NOTE BRIAN SOMMER Final Result * HCHG CATH PR5, HCHG ANES US GUIDE FOR VASC ACCESS, HCHG ANES ARTERIAL CATH FOR SAMPLE MONITOR TRANS, HCHG TUBING PR1, HCHG TUBING PR20, HCHG DRSG PR1, HCHG DRSG PR5, HCHG KIT PR5 (03/10/2024 3:09 PM MAINTENANCE SHOP TECHNICIAN) Narrative Nataliya Linares MD - 03/10/2024 3:09 PM MAINTENANCE SHOP TECHNICIAN Nataliya Linares MD 03/10/2024 3:10 PM Arterial Line Patient location during procedure: pre-op Indications: lab sampling and monitoring Staffing Preanesthetic Checklist Completed: patient identified, risks and benefits discussed, consent obtained and timeout performed Arterial Line Patient position: supine. Comment:. Laterality: left Site: radial Local Anesthetic: lidocaine 1%. Ultrasound guidance: ultrasound permanent image saved. Needle localization (ultrasound): no pathologic findings, selected vessel patent, potential access sites evaluated, needle visualized entering selected vessel and anatomically normal. Securement/dressing: Biopatch applied, dressing applied. Comment: Needle Catheter size: 20 G. Comment:. Catheter length: 4.5 cm. Comment: Events: no complications. us Nataliya Linares MD ANESTHESIA PX NOTE BRIAN SOMMER Edited Result - Final * ECHO FANG INTRAOPERATIVE (03/10/2024 2:42 PM MAINTENANCE SHOP TECHNICIAN) Anatomical Region Laterality Modality Computed Radiogr aphy 03/10/2024 11:2 3 AM MAINTENANCE SHOP TECHNICIAN Narrative 03/10/2024 5:04 PM MAINTENANCE SHOP TECHNICIAN TRANSESOPHAGEAL ECHOCARDIOGRAM ENRIKE YARBROUGH : 1940 84 years Study Date: 03/10/2024 11:23:38 AM Gender: M BP: 109/52 mmHg Height: 170.00 cm BSA: 2.09 m Weight: 98.00 kg Tech: Referring MD: DERICK WINN Site: [facility] Reading Location: [facility] Patient Location: Procedure: FANG. Indication for study: Intra-operative FANG Cardiac Rhythm: Normal sinus and atrial paced.Study quality: Fair. Final Impressions: 1. Pre-FANG Findings: Discussed with surgeon. LV: Normal size and function. Septal dyssynchrony but no other wall motion abnormalities appreciated. LV EF 66% by Alvarez's method. RV: Normal size and function. TAPSE 14 mm. AV: Trileaflet w/ thickened leaflets but no appreciated. Trace AR. MV: Mildly thickened leaflets w/ trace central MR. TV: Pacing wires across valve. Trace TR at location of lead. Dilated LA/RA w/ no masses appreciated in atria. No MEGHAN thrombus appreciated, peak velocity 50 cm/s. No PFO appreciated by CFD, bubble study not performed. Aorta: Ascending aorta 3.48 cm diameter. Mild atherosclerotic disease in ascending aorta, no mobile plaques appreciated. No dissection appreciated. No pericardial or pleural effusions appreciated. Procedure comments: Indications, goals, risks and alternatives of the procedure were discussed with the patient and informed consent was obtained. The patient received general anesthesia. See procedural record for anesthesia details. Prior to performance of procedure, time out was called to accurately identify the patient and procedure. The probe was passed without difficulty. FANG was performed. The patient developed no apparent complications during the procedure. Estimated Blood Loss: 0 ml Post Procedure Findings Post-FANG Findings: Discussed with surgeon. S/p sternotomy; CABG x3: TORRES-diag, SVG- LAD, SVG - distal RCA, V wires, MEGHAN ligation. Patient adequately de-aired prior to termination from CPB. Function assessed in the setting of no inotropic support, pacing. LV: Unchanged, normal size and function w/ septal dyssynchrony. RV: Unchanged, normal size and function. Valves: Overall unchanged. Aorta: Unchanged, no dissection appreciated. No pericardial or pleueral effusions appreciated. Patient's oral cavity and dentition unchanged from pre-procedure upon removal of FANG probe. MEASUREMENTS AND CALCULATIONS 2-D Measurements and LV Function: HR 71 bpm . Final Procedure Note Nataliya Linares MD - 03/10/2024 TRANSESOPHAGEAL ECHOCARDIOGRAM ENRIKE YARBROUGH : 1940 84 years Study Date: 03/10/2024 11:23:38 AM Gender: M BP: 109/52 mmHg Height: 170.00 cm BSA: 2.09 m Weight: 98.00 kg Tech: Referring MD: DERICK WINN Site: [facility] Reading Location: [facility] Patient Location: Procedure: FANG. Indication for study: Intra-operative FANG Cardiac Rhythm: Normal sinus and atrial paced.Study quality: Fair. Final Impressions: 1. Pre-FANG Findings: Discussed with surgeon. LV: Normal size and function. Septal dyssynchrony but no other wallmotion abnormalities appreciated. LV EF 66% by Alvarez's method. RV: Normal size and function. TAPSE 14 mm. AV: Trileaflet w/ thickened leaflets but no appreciated. TraceAR. MV: Mildly thickened leaflets w/ trace central MR. TV: Pacing wires across valve. Trace TR at location of lead. Dilated LA/RA w/ no masses appreciated in atria. No MEGHAN thrombusappreciated, peak velocity 50 cm/s. No PFO appreciated by CFD, bubblestudy not performed. Aorta: Ascending aorta 3.48 cm diameter. Mild atherosclerotic diseasein ascending aorta, no mobile plaques appreciated. No dissectionappreciated. No pericardial or pleural effusions appreciated. Procedure comments: Indications, goals, risks and alternatives of theprocedure were discussed with the patient and informed consent wasobtained. The patient received general anesthesia. See procedural recordfor anesthesia details. Prior to performance of procedure, time out wascalled to accurately identify the patient and procedure. The probe waspassed without difficulty. FANG was performed. The patient developed noapparent complications during the procedure. Estimated Blood Loss: 0 ml Post Procedure Findings Post-FANG Findings: Discussed with surgeon. S/p sternotomy; CABG x3:TORRES-diag, SVG- LAD, SVG - distal RCA, V wires, MEGHAN ligation. Patient adequately de-aired prior to termination from CPB. Functionassessed in the setting of no inotropic support, pacing. LV: Unchanged, normal size and function w/ septal dyssynchrony. RV: Unchanged, normal size and function. Valves: Overall unchanged. Aorta: Unchanged, no dissection appreciated. No pericardial or pleueral effusions appreciated. Patient's oral cavity and dentition unchanged from pre-procedure uponremoval of FANG probe. MEASUREMENTS AND CALCULATIONS 2-D Measurements and LV Function: HR 71 bpm . Final Derick Winn MD ECHO ORD Final R esult * HCHG TUBE PR1, HCHG STYLET PR1 (03/10/2024 1:18 PM MAINTENANCE SHOP TECHNICIAN) Narrative Diane Benavides CRNA - 03/10/2024 1:18 PM MAINTENANCE SHOP TECHNICIAN Diane Benavides CRNA 03/10/2024 1:19 PM Procedure: ETT Patient location during procedure: OR ETT Properties Mask Ventilation: oral airway Final Technique: direct laryngoscopy Type: straight Location: oral Cuffed: yes Tube Size: 8.0 mm Stylet: yes Laryngoscope Blade: Hurt Blade Size: 2 Cormack-Lehane Grade View: 1 Insertion Attempts: 1 Placement Verification: auscultation, end tidal CO2 and symmetrical chest wall movement Assessment: pharynx clear, atraumatic and dentition unchanged Secured at: 22 Measured From: teeth Difficulty: 0 (not difficult) Nataliya Linares MD ANESTHESIA PX NOTE ORDE RABLES Final Result * Type and Screen (03/10/2024 10:41 AM MAINTENANCE SHOP TECHNICIAN) ABORH O Rh Positive 03/10/2024 11:43 AM MAINTENANCE SHOP TECHNICIAN [facility] LAB BLOOD BANK ANTIBODY SCREEN Negative Negative 03/10/2024 11:43 AM MAINTENANCE SHOP TECHNICIAN [facility] BLOOD BANK SPECIMEN EXPIRATION DATE/TIME 03/13/24 23:59 03/10/2024 11:43 AM MAINTENANCE SHOP TECHNICIAN [facility] BLOOD B[facility] Blood BLOOD SPECIMEN / Unknown Venipuncture / Unknown 03/10/2024 10:41 AM MAINTENANCE SHOP TECHNICIAN 03/10/2024 10:59 AM MAINTENANCE SHOP TECHNICIAN Olamide GIL BLOOD BANK Final Res ult [facility]Cl[facility]tonC[facility]TR[facility] BLOOD BANK [address] [place] [address], [place] [phone] * (ABNORMAL) Glucose, Fasting (03/10/2024 10:41 AM MAINTENANCE SHOP TECHNICIAN) Pathologist [facility] GLUCOSE 153(H) 70 - 99 mg/dL 03/10/2024 11:31 AM MAINTENANCE SHOP TECHNICIAN [facility] Blood BLOOD SPECIMEN / Unknown Venipuncture / Unknown 03/10/2024 10:41 AM MAINTENANCE SHOP TECHNICIAN 03/10/2024 10:59 AM MAINTENANCE SHOP TECHNICIAN us Olamide GIL CHEMISTRY Final Res ult Performing Organization Address [facility]/ZIP Co de Phone Number [facility] [address] [place] [address], [place] * EXTRA TUBE GOLD/SST (03/10/2024 10:40 AM MAINTENANCE SHOP TECHNICIAN) Blood BLOOD SPECIMEN / Unknown Extra Tube / Unknown 03/10/2024 10:40 AM MAINTENANCE SHOP TECHNICIAN 03/10/2024 11:01 AM MAINTENANCE SHOP TECHNICIAN us Tonja Redman MD LABORATORY Final Res ult Performing Organization Address [facility] Co de Phone Number [facility] [address] [place] [address], [place] * SCAN-OPERATIVE/PROCEDURE REPORT (03/10/2024 12:00 AM MAINTENANCE SHOP TECHNICIAN) Narrative 03/10/2024 12:00 AM MAINTENANCE SHOP TECHNICIAN Ordered by an unspecified provider. us Other Clinical Staff OTHER Final Resul t * (ABNORMAL) HEMOGLOBIN A1C MONITORING (POCT) (03/03/2024 8:51 AM MAINTENANCE SHOP TECHNICIAN) [facility] POC HEMOGLOBIN A1C 7.7(H) <6.0 % OF TOTAL HGB [facility] Comment: Any point of care results exhibiting inconsistency with the patient's clinical status should be repeated using a different testing method. Blood BLOOD SPECIMEN / Unknown 03/03/2024 8:51 AM MAINTENANCE SHOP TECHNICIAN 03/03/2024 8:51 AM MAINTENANCE SHOP TECHNICIAN us Lindsay Toscano MD CHEMISTRY Final Result Performing Organization Address [facility]/ZIP Co de Phone Number [facility] [address] [place] [address], [facility] [address] [place] [address] * SCAN-RADIOLOGY REPORT (02/24/2024 12:00 AM MAINTENANCE SHOP TECHNICIAN) Anatomical Region Laterality Modality Other us Scanner OTHER Final Result * SCAN-CT INTERPRETATION (02/24/2024 12:00 AM MAINTENANCE SHOP TECHNICIAN) Anatomical Region Laterality Modality Other us Scanner OTHER Final Result * US CAROTID DUPLEX BILATERAL (02/18/2024 9:29 AM MAINTENANCE SHOP TECHNICIAN) Anatomical Region Laterality Modality CAROTID, NECK Ultrasound 02/18/2024 8:51 AM MAINTENANCE SHOP TECHNICIAN Narrative 02/18/2024 1:54 PM MAINTENANCE SHOP TECHNICIAN VASCULAR ULTRASOUND REPORT ENRIKE YARBROUGH : 1940 Study Date: 02/18/2024 8:51:53 AM Age: 83 years Tech: JODY Gender: M Referring MD: SEYMOUR COLLAZO Site: [facility] Vascular Center Study performed: Carotid Indication for Study: Pre-OP Study Quality: Good TECHNIQUE: The extracranial carotid arteries, vertebral arteries and subclavian arteries were examined per exam protocol with duplex ultrasound, color-flow and spectral Doppler. Flow velocities including peak systolic (PSV), end diastolic (EDV), and velocity ratios if applicable were documented at sites per exam protocol. IMPRESSION: 1. Based on the ICA velocities, ICA/CCA ratio, and 2D images there is plaque causing <50% stenosis in the right internal carotid artery and there is plaque causing <50% stenosis in the left internal carotid artery. 2. Normal antegrade flow in the right vertebral artery and normal antegrade flow in the left vertebral artery. 3. Multiphasic flow in the right subclavian artery consistent with no flow limiting stenosis and multiphasic flow in the left subclavian artery consistent with no flow limiting stenosis. COMPARISON: No prior study available for comparison. FINDINGS: There appears to be a less than 50 percent stenosis in the bilateral ICA. RIGHT FINDINGS: Antegrade flow in the right vertebral artery. Multiphasic flow in the right subclavian artery consistent with no flow limiting stenosis. LEFT FINDINGS: Antegrade flow in the left vertebral artery. Multiphasic flow in the left subclavian artery consistent with no flow limiting stenosis. MEASUREMENTS: +--------+--------+------+--------+--------+ RIGHT RIGHT LEFT LEFT +--------+--------+------+--------+--------+ PSV cm/s EDV cm/s Vessel PSV cm/s EDV cm/s +--------+--------+------+--------+--------+ 92 12 P. CCA 73 14 +--------+--------+------+--------+--------+ 61 12 D. CCA 61 18 +--------+--------+------+--------+--------+ 35 8 P. ICA 48 12 +--------+--------+------+--------+--------+ 40 15 M. ICA 36 15 +--------+--------+------+--------+--------+ 55 20 D. ICA 44 19 +--------+--------+------+--------+--------+ 73 13 ECA 75 10 +--------+--------+------+--------+--------+ +-----+ +----+ RIGHT LEFT +-----+ +----+ 80 Subclavian Artery (cm/s) 76 +-----+ +----+ 33 Vertebral Artery (cm/s) 36 +-----+ +----+ 0.7 ICA/CCA Ratio 0.8 +-----+ +----+ Mario Alberto Bailey MD. Electronically signed on 02/18/2024 1:54:52 PM This study was performed and interpreted by a service accredited by the Intersocietal Accreditation Commission (IAC/Vascular), www.intersocietal.org/vascular Report generated by [employer]. Final Procedure Note Mario Alberto Bailey MD - 02/18/2024 VASCULAR ULTRASOUND REPORT ENRIKE YARBROUGH : 1940 Study Date: 02/18/2024 8:51:53 AM Age: 83 years Tech: JODY Gender: M Referring MD: SEYMOUR COLLAZO Site: [facility] Vascular Center Study performed: Carotid Indication for Study: Pre-OP Study Quality: Good TECHNIQUE: The extracranial carotid arteries, vertebral arteries and subclavianarteries were examined per exam protocol with duplex ultrasound,color-flow and spectral Doppler. Flow velocities including peak systolic(PSV), end diastolic (EDV), and velocity ratios if applicable weredocumented at sites per exam protocol. IMPRESSION: 1. Based on the ICA velocities, ICA/CCA ratio, and 2D images there isplaque causing <50% stenosis in the right internal carotid artery andthere is plaque causing <50% stenosis in the left internal carotidartery. 2. Normal antegrade flow in the right vertebral artery and normalantegrade flow in the left vertebral artery. 3. Multiphasic flow in the right subclavian artery consistent with noflow limiting stenosis and multiphasic flow in the left subclavian arteryconsistent with no flow limiting stenosis. COMPARISON: No prior study available for comparison. FINDINGS: There appears to be a less than 50 percent stenosis in the bilateralICA. RIGHT FINDINGS: Antegrade flow in the right vertebral artery. Multiphasic flow in theright subclavian artery consistent with no flow limiting stenosis. LEFT FINDINGS: Antegrade flow in the left vertebral artery. Multiphasic flow in the leftsubclavian artery consistent with no flow limiting stenosis. MEASUREMENTS: +--------+--------+------+--------+--------+ RIGHT RIGHT LEFT LEFT +--------+--------+------+--------+--------+ PSV cm/s EDV cm/s Vessel PSV cm/s EDV cm/s +--------+--------+------+--------+--------+ 92 12 P. CCA 73 14 +--------+--------+------+--------+--------+ 61 12 D. CCA 61 18 +--------+--------+------+--------+--------+ 35 8 P. ICA 48 12 +--------+--------+------+--------+--------+ 40 15 M. ICA 36 15 +--------+--------+------+--------+--------+ 55 20 D. ICA 44 19 +--------+--------+------+--------+--------+ 73 13 ECA 75 10 +--------+--------+------+--------+--------+ +-----+ +----+ RIGHT LEFT +-----+ +----+ 80 Subclavian Artery (cm/s) 76 +-----+ +----+ 33 Vertebral Artery (cm/s) 36 +-----+ +----+ 0.7 ICA/CCA Ratio 0.8 +-----+ +----+ Mario Alberto Bailey MD. Electronically signed on 02/18/2024 1:54:52 PM This study was performed and interpreted by a service accredited by theIntersocietal Accreditation Commission (IAC/Vascular),www.[email or web address]/vascular Report generated by [employer]. Final us Seymour GIL US Final Result * US VEIN MAPPING LOWER EXTREMITY BILATERAL (02/18/2024 9:29 AM MAINTENANCE SHOP TECHNICIAN) Anatomical Region Laterality Modality LEGS, LEG L, LEG R Ultrasound 02/18/2024 9:05 AM MAINTENANCE SHOP TECHNICIAN Narrative 02/18/2024 1:42 PM MAINTENANCE SHOP TECHNICIAN VASCULAR ULTRASOUND REPORT ENRIKE YARBROUGH : 1940 Study Date: 02/18/2024 9:05:05 AM Age: 83 years Tech: JODY Gender: M Referring MD: SEYMOUR COLLAZO Site: [facility] Vascular Center Study performed: (bilateral), vein mapping. Indication for study: Pre-OP Study Quality: Good TECHNIQUE: Lower/upper extremity veins were examined with duplex ultrasound, color-flow and spectral Doppler per exam protocol. Vein compressibility by transducer pressure was used to evaluate presence/absence of DVT/SVT. Venous flow and competence was evaluated by flow augmentation maneuvers per exam protocol. Insufficiency studies were performed with the patient in upright position, with vein diameters measured in mm, and reflux. IMPRESSION: 1. Negative for DVT in the bilateral CFV. Negative for SVT bilaterally. 2. The bilateral GSV/SSV measurements are noted below. COMPARISON: No prior study available for comparison. FINDINGS: Negative for DVT in the bilateral CFV. Negative for SVT bilaterally. The bilateral GSV/SSV measurements are noted below. MEASUREMENTS: +---+--------+-----+------+--------+----+------+ RIGHT RIGHT RIGHT LEFT LEFT LEFT Compress DVT Reflux Compress DVT Reflux SVT (secs) SVT (secs) +---+--------+-----+------+--------+----+------+ CFV yes None 0.0 yes None 0.0 +---+--------+-----+------+--------+----+------+ Vein Map +--------+--------+------+ +--------+--------+------+ RIGHT LEFT +--------+--------+------+ +--------+--------+------+ Compress Diameter Reflux Compress Diameter Reflux (mm) (secs) (mm) (secs) +--------+--------+------+ +--------+--------+------+ yes 4.9 0.0 SFJ yes 5.0 0.0 +--------+--------+------+ +--------+--------+------+ yes 3.8 GSV PROX THIGH yes 4.8 +--------+--------+------+ +--------+--------+------+ yes 3.8 0.0 GSV MID THIGH yes 4.3 0.0 +--------+--------+------+ +--------+--------+------+ yes 3.5 GSV DIST THIGH yes 3.1 +--------+--------+------+ +--------+--------+------+ yes 3.1 GSV KNEE yes 2.7 +--------+--------+------+ +--------+--------+------+ yes 2.1 GSV UPPER CALF yes 2.6 +--------+--------+------+ +--------+--------+------+ yes 3.5 0.0 GSV MID CALF yes 2.9 0.0 +--------+--------+------+ +--------+--------+------+ yes 3.0 GSV LOW CALF yes 2.7 +--------+--------+------+ +--------+--------+------+ yes 1.9 0.0 SPJ yes 2.9 0.0 +--------+--------+------+ +--------+--------+------+ yes 1.6 SSV PRX CALF yes 2.2 +--------+--------+------+ +--------+--------+------+ yes 2.5 0.0 SSV MID CALF yes 2.9 0.0 +--------+--------+------+ +--------+--------+------+ yes 2.2 SSV DIST CALF yes 2.0 +--------+--------+------+ +--------+--------+------+ = Can't evaluate Mario Alberto Bailey MD. Electronically signed on 02/18/2024 1:42:01 PM This study was performed and interpreted by a service accredited by the Intersocietal Accreditation Commission (IAC/Vascular), www.intersocietal.org/vascular Report generated by [employer]. Final Procedure Note Mario Alberto Bailey MD - 02/18/2024 VASCULAR ULTRASOUND REPORT ENRIKE YARBROUGH : 1940 Study Date: 02/18/2024 9:05:05 AM Age: 83 years Tech: JODY Gender: M Referring MD: SEYMOUR COLLAZO Site: [facility] Vascular Center Study performed: (bilateral), vein mapping. Indication for study: Pre-OP Study Quality: Good TECHNIQUE: Lower/upper extremity veins were examined with duplex ultrasound,color-flow and spectral Doppler per exam protocol. Vein compressibility bytransducer pressure was used to evaluate presence/absence of DVT/SVT.Venous flow and competence was evaluated by flow augmentation maneuversper exam protocol. Insufficiency studies were performed with the patientin upright position, with vein diameters measured in mm, and reflux. IMPRESSION: 1. Negative for DVT in the bilateral CFV. Negative for SVT bilaterally. 2. The bilateral GSV/SSV measurements are noted below. COMPARISON: No prior study available for comparison. FINDINGS: Negative for DVT in the bilateral CFV. Negative for SVT bilaterally. The bilateral GSV/SSV measurements are noted below. MEASUREMENTS: +---+--------+-----+------+--------+----+------+ RIGHT RIGHT RIGHT LEFT LEFT LEFT Compress DVT Reflux Compress DVT Reflux SVT (secs) SVT (secs) +---+--------+-----+------+--------+----+------+ CFV yes None 0.0 yes None 0.0 +---+--------+-----+------+--------+----+------+ Vein Map +--------+--------+------+ +--------+--------+------+ RIGHT LEFT +--------+--------+------+ +--------+--------+------+ Compress Diameter Reflux Compress Diameter Reflux (mm) (secs) (mm) (secs) +--------+--------+------+ +--------+--------+------+ yes 4.9 0.0 SFJ yes 5.0 0.0 +--------+--------+------+ +--------+--------+------+ yes 3.8 GSV PROX THIGH yes 4.8 +--------+--------+------+ +--------+--------+------+ yes 3.8 0.0 GSV MID THIGH yes 4.3 0.0 +--------+--------+------+ +--------+--------+------+ yes 3.5 GSV DIST THIGH yes 3.1 +--------+--------+------+ +--------+--------+------+ yes 3.1 GSV KNEE yes 2.7 +--------+--------+------+ +--------+--------+------+ yes 2.1 GSV UPPER CALF yes 2.6 +--------+--------+------+ +--------+--------+------+ yes 3.5 0.0 GSV MID CALF yes 2.9 0.0 +--------+--------+------+ +--------+--------+------+ yes 3.0 GSV LOW CALF yes 2.7 +--------+--------+------+ +--------+--------+------+ yes 1.9 0.0 SPJ yes 2.9 0.0 +--------+--------+------+ +--------+--------+------+ yes 1.6 SSV PRX CALF yes 2.2 +--------+--------+------+ +--------+--------+------+ yes 2.5 0.0 SSV MID CALF yes 2.9 0.0 +--------+--------+------+ +--------+--------+------+ yes 2.2 SSV DIST CALF yes 2.0 +--------+--------+------+ +--------+--------+------+ = Can't evaluate Mario Alberto Bailey MD. Electronically signed on 02/18/2024 1:42:01 PM This study was performed and interpreted by a service accredited by theIntersocietal Accreditation Commission (IAC/Vascular),[email or web address]/vascular Report generated by [employer]. Final us Seymour GIL US Final Result * CVL CORONARY ANGIOGRAM POSS PCI (02/11/2024 2:21 PM MAINTENANCE SHOP TECHNICIAN) Anatomical Region Laterality Modality X-Ray Angiograph y, X-Ray Angiography 02/11/2024 2:21 PM MAINTENANCE SHOP TECHNICIAN Narrative Transcriptions Aba Viramontes MD - 02/11/2024 4:47 PM CST [facility] Cardiac Catheterization Report Name: ENRIKE YARBROUGH Event Date: 02/11/2024 14:21 Excell[employer] ID #: [id number] LIVIA #: [id number] Patient Class: Outpatient Diagnostic Physician: ABA VIRAMONTES [facility] Referring Physician: PCP Lindsay Toscano Primary Care Physician: LINDSAY TOSCANO Date: 1940 Gender: Male Age: 83 Summary/Conclusions PRESENTATION / INDICATIONS * Stress Test High risk/extent of ischemia * SOB on minimal exertion VASCULAR ACCESS * Using ultrasound guidance and a percutaneous technique, the right radialartery was accessed. Ultrasound was used to confirm vessel patency,localizing needle into the lumen of the vessel. An image was saved for themedical record. DIAGNOSTIC - CORONARY * Co-dominant coronary artery system DIAGNOSTIC SUMMARY ? 90% stenosis in the Proximal LAD, reaching into LM ? 100% chronic stenosis in the Distal LAD, after large D2 take off ? D1 and D2 especially are dominant ? The Ramus has mild luminal irregularities. ? 90% stenosis in the Proximal RCA, some R-L to minute distal LAD RECOMMENDATIONS & PLAN * Medical Rx - Aspirin: 81 mg daily * Recommend surgical revascularization (D1, D2, RCA) to avoid jailing ofCX and D1- if not offered we can plan for higher risk PCI Consent & Tuthill Protocol The risks, benefits, and alternatives of the procedure were discussed withthe patient and written informed consent was obtained. Tuthill protocol was followed. TIME OUT conducted just prior tostarting procedure confirmed patient identity, site/side, procedure,patient position, and availability of correct equipment and implants (ifapplicable). Staff Name Title ABA VIRAMONTES Diagnostic Tie Layer Tre Wong RN Nurse Yamila Lawrence CVT Scrub Krunal Villanueva CVT Monitor Katelynn Boyce SENIOR QA ANALYST Cryogenic Transport Driver Procedures ? Ultrasound Guided Vascular Access ? Coronary Angiogram Diagnostic Findings * Left Anterior Descending ? 90% stenosis in the Proximal LAD. ? 100% chronic stenosis in the Distal LAD. * Ramus ? The Ramus has mild luminal irregularities. * Right Coronary Artery ? 90% stenosis in the Proximal RCA. Lesion Information Lesion # Vessel Segment Lesion Length Lesion Details Proximal RCA Distal LAD Proximal LAD Hemodynamics State: Baseline Pressures (mmHg) Site Systolic Diastolic End Diastolic A Wave V Wave Mean AO 126 78 98 Procedure Details Estimated Blood Loss: < 30 ml Specimen Collected: None Level of Sedation Achieved: Moderate Procedure Start: 14:21 Procedure End: 14:34 Procedure Time: 13 min Fluoroscopy Time: 3.3 min Cumulative Air Kerma: 216 mGy DAP: 1200 uGy/M2 Contrast: Omnipaque (low-osmolar), 50 ml Physiologic Data Weight: 97.1 kg BSA: 2.12 m2 Vascular Access Time Access Sheath Size 14:22 Right Radial Artery, sheath inserted Medications Ordered and Administered Start Time Stop Time Medication Dose Units Route Ordered By Given By 14:16 Fentanyl 50 mcg IV Aba Viramontes Nathan RN 14:16 Versed 1 mg IV Aba Viramontes Nathan RN 14:21 Versed 0.5 mg IV Aba Viramontes Nathan RN 14:21 Fentanyl 25 mcg IV Aba Viramontes Nathan RN 14:21 1% Lidocaine 0.5 ml Subcut Aba Viramontes Mario 14:23 Nitroglycerin 100 mcg IA Aba Viramontes Mario 14:25 Heparin 5000 units IV Aba Viramontes Nathan RN I personally monitored the patient?s conscious sedation during theprocedure. Conscious sedation starts with the first sedation medication dose ofFentanyl or Versed and ends when the procedure is completed, the patientis stable for recovery status, and the physician or other qualified healthcare professional providing the sedation ends personal rbokxutjhwfsih-sk-glgn time with the patient. The medications listed above were verbally ordered by me and read back tome as documented above. Refer to the procedure log report for additional case details. electronically signed on 02/11/2024 4:47:20 PM with status of Final Aba Viramontes MD [facility] [address] [place] [address] (p) (f) us Provider Referring CV IMAGING Edited Result - Final * PATH TISSUE EXAM (02/02/2024 9:50 AM MAINTENANCE SHOP TECHNICIAN) Case Report Pathology Report Case: [id number] Authorizing Provider: Constance Colmenares MD Collected: 02/02/2024 0950 Ordering Location: [facility] Received: 02/02/2024 1535 Clinic Pathologist: Lisandra Wise MD Specimen: Skin, left leg 02/09/2024 8:32 AM MAINTENANCE SHOP TECHNICIAN [facility] [employer] [facility] Final Diagnosis SKIN, LEFT LEG, BIOPSY: 1. Spongiotic superficial dermatophyte infection 2. Fungal hyphae are identified within the stratum corneum on PAS stained sections 3. 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 The skin surface is smooth and garcia. No discrete lesion is grossly identified. The specimen is inked yellow, bisected and entirely submitted in one cassette. [facility] 02/03/2024 02/09/2024 8:32 AM MAINTENANCE SHOP TECHNICIAN [facility] [employer] [facility] Microscopic Description The final diagnosis is based on microscopic examination of appropriate sections of all specimens. Sections reveal spongiosis of the epidermis and a mixed upper and mid dermal mixed inflammatory infiltrate. PAS positive fungal hyphae are identified within the stratum corneum. The presence of yellow ink is confirmed on tissue sections. 02/09/2024 8:32 AM MAINTENANCE SHOP TECHNICIAN [facility] [facility] Additional Information Interpreted at [facility] [employer] [facility]ly [facility], Central Laboratory - [address] [address] 02/09/2024 8:[address] [facility] [employer] [facility] Other SPECIMEN FROM SKIN / Unknown Non-Blood / Unknown 02/02/2024 9:50 AM MAINTENANCE SHOP TECHNICIAN 02/02/2024 3:35 PM MAINTENANCE SHOP TECHNICIAN us Constance Colmenares MD PATHOLOGY/CYTOLOGY Final Resul t [facility] [address] [place] [address], * (ABNORMAL) LIPID PANEL W REFLEX MEASURED LDL (02/01/2024 11:44 AM MAINTENANCE SHOP TECHNICIAN) CHOLESTEROL, TOTAL 211(H) <200 mg/dL [facility] HDL CHOLESTEROL 69 > OR = 40 mg/dL [facility] TRIGLYCERIDES 102 <150 mg/dL [facility] LDL-CHOLESTEROL 122(H) mg/dL (calc) [facility] Comment: Reference range: <100 Desirable range <100 mg/dL for primary prevention; <70 mg/dL for patients with CHD or diabetic patients with > or = 2 CHD risk factors. LDL-C is now calculated using the Frandy-Wynn calculation, which is a validated novel method providing better accuracy than the Friedewald equation in the estimation of LDL-C. Frandy SS et al. KAMILA. 2013;310(19): 5502-6015 (http://education.Telvent Git/faq/MXG889) CHOL/HDLC RATIO 3.1 <5.0 (calc) [facility] NON HDL CHOLESTEROL 142(H) <130 mg/dL (calc) [facility] Comment: For patients with diabetes plus 1 major ASCVD risk factor, treating to a non-HDL-C goal of <100 mg/dL (LDL-C of <70 mg/dL) is considered a therapeutic option. Blood BLOOD SPECIMEN / Unknown 02/01/2024 11:44 AM MAINTENANCE SHOP TECHNICIAN 02/01/2024 11:46 AM MAINTENANCE SHOP TECHNICIAN Narrative [facility] - 02/02/2024 4:34 AM MAINTENANCE SHOP TECHNICIAN FASTING:NO FASTING: NO us Melanie GIL CHEMISTRY Final Res ult [facility] [address] [address], [place] [phone] [facility] [address] [place] [address] * ALT (SGPT) (02/01/2024 11:44 AM MAINTENANCE SHOP TECHNICIAN) ALT 16 9 - 46 U/L [facility] Blood BLOOD SPECIMEN / Unknown 02/01/2024 11:44 AM MAINTENANCE SHOP TECHNICIAN 02/01/2024 11:46 AM MAINTENANCE SHOP TECHNICIAN Narrative [facility] - 02/02/2024 4:34 AM MAINTENANCE SHOP TECHNICIAN FASTING:NO FASTING: NO Melanie GIL CHEMISTRY Final Res ult [facility] [address] [place] [address], [facility] [address] [place] [address] * AST (SGOT) (02/01/2024 11:44 AM MAINTENANCE SHOP TECHNICIAN) AST 20 10 - 35 U/L [facility] Blood BLOOD SPECIMEN / Unknown 02/01/2024 11:44 AM MAINTENANCE SHOP TECHNICIAN 02/01/2024 11:46 AM MAINTENANCE SHOP TECHNICIAN Narrative [facility] - 02/02/2024 4:34 AM MAINTENANCE SHOP TECHNICIAN FASTING:NO FASTING: NO Melanie GIL CHEMISTRY Final Res ult [facility] [address] [place] [address], [place] [phone] [facility] [address] [place] [address] * CTA FRACTIONAL FLOW RESERVE (01/31/2024 12:27 PM MAINTENANCE SHOP TECHNICIAN) Anatomical Region Laterality Modality Computed Tomogra phy Narrative 02/01/2024 2:57 PM MAINTENANCE SHOP TECHNICIAN Images from the original result were not included. [facility] Cardiac CT Report Name: ENRIKE YARBROUGH : Scan Date: Accession Number: [id number] Status: Final Electronically signed by Rakesh Chawla 13:17:12 VITALS HEIGHT: 67 in (170 cm) WEIGHT: 218 lbs (99 kgs) BSA: 2.10 m^2 BMI: 34 kg/m^2 BP: 126 / 74 mmHg BASELINE HR: 60 BPM HEART RHYTHM: Normal Sinus Rhythm FINAL IMPRESSION 1. Extensive calcified moderate to severe stenosis in the proximal LAD. A. CT-FFR sent to better assess the proximal LAD. B. Total coronary artery calcium score 1087. 2. Symptoms may be from the LAD lesion. FFR-CT to follow. 3. Normal left sided aortic dimensions. Please see radiology section at end of report for noncardiac findings. RECOMMENDATIONS: Consider invasive coronary angiography given the significant proximal LAD lesion. STUDY QUALITY: Study quality is adequate. Misalignment artifact(s) due to arrhythmia noted. CAD-RADS: CAD-RADS Classification 3 (50-69% stenosis). CALCIUM SCORING: Total coronary artery calcium score 1087. DOMINANCE: Right dominant coronary artery system. LM: The LM has partially calcified atherosclerosis. There is a <25% LM stenosis. LAD: The proximal LAD has partially calcified atherosclerosis. There is a 50-69% proximal LAD stenosis. The mid LAD has partially calcified atherosclerosis. There is a 50-69% mid LAD stenosis. The distal LAD has calcified atherosclerosis. There is a <25% distal LAD stenosis. D1: The first diagonal is normal. D2: The second diagonal has calcified atherosclerosis. There is a <25% second diagonal stenosis. It is a large caliber branching vessel. LCX: The LCx is normal. OM1: The first obtuse marginal is normal. RCA: The proximal RCA has partially calcified atherosclerosis. There is a <25% proximal RCA stenosis. The mid RCA has calcified atherosclerosis. There is a <25% mid RCA stenosis. There is no plaque in the distal RCA. There is no distal RCA stenosis. RIGHT PDA: The right PDA is normal. RIGHT PLB: The right posterolateral branch is normal. OTHER FINDINGS: Thoracic aorta: Aortic sinus maximum cusp-cusp: 35 x 35 x 34 mm. Ascending aorta maximum diameters: 37 x 36 mm. Descending thoracic aorta maximum diameters: 26 x 27 mm. Pericardium: No effusion. Left atrium: Normal contrast opacification, with small left atrial diverticulum 1 x 0.7 cm. Atrial septum: No evidence of shunt. Pulmonary veins: Normal anatomy. CALCIUM SCORING TABLE . . Number of Lesions Pattern of Calcium Volume Total Score +-------+ + +--------+ + LM 17 LAD 858 LCx 0 RCA 212 Ramus '-------+ + +--------+ ' SCAN INFO TEST TYPE: Calcium score, Coronary CT Angiography SCANNER MEMBERSHIP ASSISTANT: SIEMENS SCANNER MODEL: Recombine Force DOSE REDUCTION ALGORITHM: Prospective/Ntnq-qha-cpmel PHASE UNITS: ms START PHASE: 280 ms END PHASE: 400 ms EKG GATED: Yes PRE-CONTRAST: Yes POST-CONTRAST: Yes 3D RECONSTRUCTION: Yes PACEMAKER DEVICE: Yes PACEMAKER REPROGRAMMING: Yes GENERAL CONTRAST AGENT CONTRAST AGENT USED?: Yes TYPE: Omnipaque 350 DOSE: 110 ml RATE: 7 ml/s ROUTE: IV ARM: Left BOLUS TECHNIQUE: Biphasic SERUM CREATININE: 1.26 mg/dL GFR: 57.81 ml/min/1.73m^2 CREATININE DATE: CT CONTRAST REACTION: None MEDICATION ADMINISTERED DURING SCAN TYPE: Nitroglycerin, sublingual, B-Blockers NITROGLYCERIN, TOTAL DOSE: 0.8 mg B-ALLISON TYPE: Oral B-ALLISON NAME, ORAL: Metoprolol tartrate B-BLOCKERS, ORAL DOSE: 100 mg RADIATION DOSE DLP: 202 KV: 110 SETUP PATIENT TYPE: Outpatient REASON(S) FOR SCAN: Non-diagnostic stress test REFERRING PHYSICIAN: MELANIE ISBELL ATTENDING PHYSICIAN: MELANIE ISBELL TECHNOLOGIST: Allison Willson Patient Account [id number] ICD10 Codes I50.9, R94.39 Report generated by [employer], a product of [employer] For Patients: As a result of the 21st Century Cures Act, medical imaging exams and procedure reports are released immediately into your electronic medical record. You may view this report before your referring provider. If you have questions, please contact your health care provider. OVER-READ OVER-READ OVER-READ OVER-READ: DETAILED RADIOLOGY EXTRACARDIAC OVER-READ OF CARDIAC CT 12/06/2023 TECHNIQUE: Please see cardiology report for technical information. 110 cc Omnipaque 350. INDICATION: Cardiac over-read. This exam is being performed in conjunction with the services provided by the [facility] ([facility]). Extracardiac findings: Visualized lungs and pleural spaces: 5 mm left lower lobe pulmonary nodule that is stable compared to CT chest from 01/05/2022 and favored benign. Visualized mediastinum: Unremarkable. Other abnormalities: Multilevel spinal degenerative changes. Impression: No acute or significant extracardiac findings. Dictated by Ubaldo Hernandez MD @ 01/31/2024 3:06:44 PM Please note that all CT scans at this facility use dose modulation, iterative reconstruction, and/or weight-based dosing when appropriate to reduce radiation dose to as low as reasonably achievable. Dictated by: Ubaldo Hernandez MD @ 01/31/2024 15:06:[address] Final Res ult * CT CARDIAC CORONARY ARTERIES DUAL READ (01/31/2024 12:27 PM MAINTENANCE SHOP TECHNICIAN) Anatomical Region Laterality Modality HEART Computed Tomogra phy 01/31/2024 12:0 7 PM MAINTENANCE SHOP TECHNICIAN Narrative 02/01/2024 2:57 PM MAINTENANCE SHOP TECHNICIAN Images from the original result were not included. [facility] Cardiac CT Report Name: ENRIKE YARBROUGH David : Scan Date: Accession Number: [id number] Status: Final Electronically signed by Rakesh Chawla 13:17:12 VITALS HEIGHT: 67 in (170 cm) WEIGHT: 218 lbs (99 kgs) BSA: 2.10 m^2 BMI: 34 kg/m^2 BP: 126 / 74 mmHg BASELINE HR: 60 BPM HEART RHYTHM: Normal Sinus Rhythm FINAL IMPRESSION 1. Extensive calcified moderate to severe stenosis in the proximal LAD. A. CT-FFR sent to better assess the proximal LAD. B. Total coronary artery calcium score 1087. 2. Symptoms may be from the LAD lesion. FFR-CT to follow. 3. Normal left sided aortic dimensions. Please see radiology section at end of report for noncardiac findings. RECOMMENDATIONS: Consider invasive coronary angiography given the significant proximal LAD lesion. STUDY QUALITY: Study quality is adequate. Misalignment artifact(s) due to arrhythmia noted. CAD-RADS: CAD-RADS Classification 3 (50-69% stenosis). CALCIUM SCORING: Total coronary artery calcium score 1087. DOMINANCE: Right dominant coronary artery system. LM: The LM has partially calcified atherosclerosis. There is a <25% LM stenosis. LAD: The proximal LAD has partially calcified atherosclerosis. There is a 50-69% proximal LAD stenosis. The mid LAD has partially calcified atherosclerosis. There is a 50-69% mid LAD stenosis. The distal LAD has calcified atherosclerosis. There is a <25% distal LAD stenosis. D1: The first diagonal is normal. D2: The second diagonal has calcified atherosclerosis. There is a <25% second diagonal stenosis. It is a large caliber branching vessel. LCX: The LCx is normal. OM1: The first obtuse marginal is normal. RCA: The proximal RCA has partially calcified atherosclerosis. There is a <25% proximal RCA stenosis. The mid RCA has calcified atherosclerosis. There is a <25% mid RCA stenosis. There is no plaque in the distal RCA. There is no distal RCA stenosis. RIGHT PDA: The right PDA is normal. RIGHT PLB: The right posterolateral branch is normal. OTHER FINDINGS: Thoracic aorta: Aortic sinus maximum cusp-cusp: 35 x 35 x 34 mm. Ascending aorta maximum diameters: 37 x 36 mm. Descending thoracic aorta maximum diameters: 26 x 27 mm. Pericardium: No effusion. Left atrium: Normal contrast opacification, with small left atrial diverticulum 1 x 0.7 cm. Atrial septum: No evidence of shunt. Pulmonary veins: Normal anatomy. CALCIUM SCORING TABLE . . Number of Lesions Pattern of Calcium Volume Total Score +-------+ + +--------+ + LM 17 LAD 858 LCx 0 RCA 212 Ramus '-------+ + +--------+ ' SCAN INFO TEST TYPE: Calcium score, Coronary CT Angiography SCANNER MEMBERSHIP ASSISTANT: SIEMENS SCANNER MODEL: [employer] DOSE REDUCTION ALGORITHM: Prospective/Tiru-hdf-qbdvl PHASE UNITS: ms START PHASE: 280 ms END PHASE: 400 ms EKG GATED: Yes PRE-CONTRAST: Yes POST-CONTRAST: Yes 3D RECONSTRUCTION: Yes PACEMAKER DEVICE: Yes PACEMAKER REPROGRAMMING: Yes GENERAL CONTRAST AGENT CONTRAST AGENT USED?: Yes TYPE: Omnipaque 350 DOSE: 110 ml RATE: 7 ml/s ROUTE: IV ARM: Left BOLUS TECHNIQUE: Biphasic SERUM CREATININE: 1.26 mg/dL GFR: 57.81 ml/min/1.73m^2 CREATININE DATE: CT CONTRAST REACTION: None MEDICATION ADMINISTERED DURING SCAN TYPE: Nitroglycerin, sublingual, B-Blockers NITROGLYCERIN, TOTAL DOSE: 0.8 mg B-ALLISON TYPE: Oral B-ALLISON NAME, ORAL: Metoprolol tartrate B-BLOCKERS, ORAL DOSE: 100 mg RADIATION DOSE DLP: 202 KV: 110 SETUP PATIENT TYPE: Outpatient REASON(S) FOR SCAN: Non-diagnostic stress test REFERRING PHYSICIAN: MELANIE ISBELL ATTENDING PHYSICIAN: MELANIE ISBELL TECHNOLOGIST: Allison Willson BILLSHIRA Patient Account [id number] ICD10 Codes I50.9, R94.39 Report generated by [employer], a product of [employer] For Patients: As a result of the Century Cures Act, medical imaging exams and procedure reports are released immediately into your electronic medical record. You may view this report before your referring provider. If you have questions, please contact your health care provider. OVER-READ OVER-READ OVER-READ OVER-READ: DETAILED RADIOLOGY EXTRACARDIAC OVER-READ OF CARDIAC CT 12/06/2023 TECHNIQUE: Please see cardiology report for technical information. 110 cc Omnipaque 350. INDICATION: Cardiac over-read. This exam is being performed in conjunction with the services provided by the [facility] ([facility]). Extracardiac findings: Visualized lungs and pleural spaces: 5 mm left lower lobe pulmonary nodule that is stable compared to CT chest from 01/05/2022 and favored benign. Visualized mediastinum: Unremarkable. Other abnormalities: Multilevel spinal degenerative changes. Impression: No acute or significant extracardiac findings. Dictated by Ubaldo Hernandez MD @ 01/31/2024 3:06:44 PM Please note that all CT scans at this facility use dose modulation, iterative reconstruction, and/or weight-based dosing when appropriate to reduce radiation dose to as low as reasonably achievable. Dictated by: Ubaldo Hernandez MD @ 01/31/2024 15:06:[address] Final Res ult * PACER EDWARD DUAL CHAMBER W REPROG (01/31/2024 11:00 AM MAINTENANCE SHOP TECHNICIAN) Narrative Darby Hayward RN - 01/31/2024 11:00 AM MAINTENANCE SHOP TECHNICIAN Darby Hayward RN 02/01/2024 8:34 AM PACEMAKER EVALUATION REPORT 01/31/24 Summary: Normal pacemaker function. Lead trends stable. No VT detections. 17.3 % AT/AF detections, on Eliquis, rates controlled. 32.6 AP%, 97.4 MIGRATION SPECIALIST% battery remaining 9.7 years. Indication for Pacemaker: Atrial Fibrillation with Slow Ventricular Response Primary MD: Lindsay Toscano MD Primary Tie Layer: Implanting MD: Enrike Goode MD DEVICE DATA Home Appliances Mechanic [employer]: Model [place] XT DR EVANS Kong [id number] Implant Date 03/21/2022 LEAD DATA Atrial Lead: Home Appliances Mechanic [employer]tr[employer]: Model 5076 52 cm Implant Date 03/21/2022 RV Lead: Home Appliances Mechanic [employer]tronic: Model 5076 58 cm Implant Date 03/21/2022 Advisory: none Location of evaluation: [facility] CTA Reason for evaluation: Adjust LRL MEASUREMENTS Atrial Sensing - P wave: 3.1 mV Atrial Capture: 0.5 V @ 0.4 ms Atrial Lead Impedance: 418 ohms Ventricular Sensing - R wave: 10.5 mV RV Capture: 0.5 V @ 0.4 ms Ventricular Lead Impedance: 380 ohms Underlying rhythm: Sinus Rhythm ~80 bpm w/ 1:1 conduction 10/12/2022: Underlying rhythm: SR at ~75-85 bpm with rare ventricular escape, frequent PACs noted. DIAGNOSTIC DATA - since 10/12/23 Atrial paced: 32.6% Ventricular paced: 97.4% Atrial episodes: ( AF alerts off) 17.3% AT/AF burden. Viewable EGMs show afib/flutter w/MIGRATION SPECIALIST. Patient is anticoagulated and overall ventricular rates are well controlled.19 days total. Associated symptoms: Denies awareness. Ventricular episodes (detects >150 bpm): None Associated symptoms: n/a Last EF: 62% per Echo on 02/17/2022 Histogram: Appropriate for patient's lifestyle Magnet rate: 85 bpm Battery voltage: 3.01 V Estimated battery longevity: 9.7 years FINAL PARAMETERS Mode: DDDR Lower rate: 60(70) bpm Upper rate: 130 bpm AV Delay: 200/200 ms Mode Switch: 150 bpm Rate Response: low 3/3 Atrial - Amplitude: adaptive 1.5 V Pulse width: 0.4 ms Sensitivity: 0.3 mV Refractory: auto 250 ms Polarity: Bipolar Right Ventricular - Amplitude: adaptive 2 V Pulse width: 0.4 ms Sensitivity: 0.9 mV Polarity: Bipolar Changes made: LRL to 60 ppm from 70 ppm for CTA today. We will program back to original parameters post CTA Follow up: 02/11/2024 Carelink cancelled and rescheduled to Routine follow up: 4 month wireless carelink utilizing a Relay monitor with annual [place] each ~September. 12:45 pm Reprogrammed patient post CTA to parameters below: FINAL PARAMETERS Mode: DDDR Lower rate: 70 bpm Upper rate: 130 bpm AV Delay: 200/200 ms Mode Switch: 150 bpm Rate Response: low 3/3 Atrial - Amplitude: adaptive 1.5 V Pulse width: 0.4 ms Sensitivity: 0.3 mV Refractory: auto 250 ms Polarity: Bipolar Right Ventricular - Amplitude: adaptive 2 V Pulse width: 0.4 ms Sensitivity: 0.9 mV Polarity: Bipolar Darby Hayward RN Nurse Clinician II [facility] Pacemaker/ICD Clinic [phone] us Enrike Goode MD CARDIAC SERVICES ORD Final Result * PRO-BNP (01/28/2024 1:30 PM MAINTENANCE SHOP TECHNICIAN) NT PROBNP 318 <450 pg/mL Above [facility] patela Blood BLOOD SPECIMEN / Unknown 01/28/2024 1:30 PM MAINTENANCE SHOP TECHNICIAN 01/28/2024 1:31 PM MAINTENANCE SHOP TECHNICIAN us Melanie GIL SEND OUTS Final Res ult [email or web address] [facility] [place] [id number] [id number], [facility] [address] [id number] * SCAN-EYE EXAM (01/19/2024 12:00 AM MAINTENANCE SHOP TECHNICIAN) us Scanner OTHER Final Result * ECHO TTE COMPLETE WO CONTRAST (01/17/2024 3:49 PM MAINTENANCE SHOP TECHNICIAN) AORTIC VALVE MEAN PG 4 mmHg EJECTION FRACTION 52 % LVEDD 5.1 cm Anatomical Region Laterality Modality Ultrasound 01/17/2024 2:47 PM MAINTENANCE SHOP TECHNICIAN Narrative 01/17/2024 4:38 PM MAINTENANCE SHOP TECHNICIAN ECHOCARDIOGRAM ENRIKE YARBROUGH : 1940 83 years Study Date: 01/17/2024 2:47:16 PM Gender: M BP: 98/64 mmHg Height: 175.26 cm BSA: 2.14 m Weight: 98.88 kg Tech: MSR Referring MD: MELANIE ALEXANDRA CASE Site: Psychiatric Reading Location: Mobile OP Patient Location: Outpatient. Procedure: 2D, Color Doppler and Spectral Doppler. Indication for study: HFrEF (heart failure with reduced ejection fraction Cardiac Rhythm: Normal sinus.Study quality: Fair. Final Impressions: 1. Normal left ventricular size, normal wall thickness, low normal global systolic function, calculated EF of 52 %. 2. Abnormal septal motion consistent with left bundle branch block. 3. Grade 1 pattern of LV diastolic filling. 4. No significant valve disease detected. Comparison Compared to prior exam of 02/17/22: LVEF slightly reduced, LBBB present. Chamber Sizes and Function Normal left ventricular size, normal wall thickness, low normal global systolic function, calculated EF of 52 %. No resting regional wall motion abnormality visualized. Abnormal (paradoxical) septal motion, consistent with left bundle branch block. Left atrial size is normal. Left atrial pressure is normal. Right ventricular cavity size is normal, global systolic RV function is normal. The right atrium is normal. The pulmonary artery is of normal size and origin. The sinus of Valsalva is normal for age/sex/bsa. The ascending aorta is normal sized. Valves, RV Pressures and Diastolic Function The aortic valve is sclerotic and trileaflet, no stenosis and no regurgitation. The mitral valve is normal in structure, trace mitral regurgitation. Spectral Doppler shows Grade 1 pattern of LV diastolic filling. The tricuspid valve is normal in structure. Tricuspid regurgitation is trace regurgitation. The pulmonic valve is not well visualized. Mild pulmonary regurgitation. Masses, Effusion, Shunts There is no pericardial effusion. The inferior vena cava is normal sized, respiratory size variation greater than 50%. No left to right shunting was detected by limited color flow Doppler interrogation of the interatrial septum. MEASUREMENTS AND CALCULATIONS 2-D Measurements and LV Function: LVID (d) 5.1 cm Planimetered EF 52 % LVID (s) 3.9 cm LV FS% (2D) 24 % IVS (d) 0.9 cm LVOT diameter 2.4 cm LVPW (d) 1.0 cm HR 83 bpm Ao Sinus 3.6 cm LA Vol index 13 ml/m2 Asc Ao 3.4 cm RV Max 4C (d) 4.3 cm LA 3.8 cm Diastology: Mitral Tissue Doppler E Peak 0.4 m/s e', Septum 0.07 m/s A Peak 0.7 m/s e', Lateral 0.07 m/s E/A 0.6 E/e' Average 5.77 DT 150 msec Aortic Valve: Vmax 1.2 m/s LILIA (V) 3.62 cm VTI 0.22 m LILIA (I) 3.46 cm LVOT V max 1.0 m/s Max PG 6 mmHg LVOT VTI 0.17 m Mean PG 4 mmHg SV 75 ml Dim Index 0.76 SV index 35 ml/m CO 6.2 l/min CI 2.9 l/min/m Mitral Valve: MVA 5.1 cm MV P 1/2 44 msec Tricuspid Valve and estimated PA pressures: TAPSE 2.0 cm Pulmonic Valve: PV AT 71 msec PADP 4 mmHg . This study was interpreted by an [facility] accredited facility. Final Procedure Note Marcelo Cates MD - 01/17/2024 ECHOCARDIOGRAM ENRIKE YARBROUGH : 1940 83 years Study Date: 01/17/2024 2:47:16 PM Gender: M BP: 98/64 mmHg Height: 175.26 cm BSA: 2.14 m Weight: 98.88 kg Tech: DIANNE Referring MD: MELANIE ALEXANDRA CASE Site: Psychiatric Reading Location: Mobile OP Patient Location: Outpatient. Procedure: 2D, Color Doppler and Spectral Doppler. Indication for study: HFrEF (heart failure with reduced ejectionfraction Cardiac Rhythm: Normal sinus.Study quality: Fair. Final Impressions: 1. Normal left ventricular size, normal wall thickness, low normal globalsystolic function, calculated EF of 52 %. 2. Abnormal septal motion consistent with left bundle branch block. 3. Grade 1 pattern of LV diastolic filling. 4. No significant valve disease detected. Comparison Compared to prior exam of 02/17/22: LVEF slightly reduced, LBBB present. Chamber Sizes and Function Normal left ventricular size, normal wall thickness, low normal globalsystolic function, calculated EF of 52 %. No resting regional wall motionabnormality visualized. Abnormal (paradoxical) septal motion, consistentwith left bundle branch block. Left atrial size is normal. Left atrialpressure is normal. Right ventricular cavity size is normal, globalsystolic RV function is normal. The right atrium is normal. The pulmonaryartery is of normal size and origin. The sinus of Valsalva is normal forage/sex/bsa. The ascending aorta is normal sized. Valves, RV Pressures and Diastolic Function The aortic valve is sclerotic and trileaflet, no stenosis and noregurgitation. The mitral valve is normal in structure, trace mitralregurgitation. Spectral Doppler shows Grade 1 pattern of LV diastolicfilling. The tricuspid valve is normal in structure. Tricuspidregurgitation is trace regurgitation. The pulmonic valve is not wellvisualized. Mild pulmonary regurgitation. Masses, Effusion, Shunts There is no pericardial effusion. The inferior vena cava is normal sized,respiratory size variation greater than 50%. No left to right shunting wasdetected by limited color flow Doppler interrogation of the interatrialseptum. MEASUREMENTS AND CALCULATIONS 2-D Measurements and LV Function: LVID (d) 5.1 cm Planimetered EF 52 % LVID (s) 3.9 cm LV FS% (2D) 24 % IVS (d) 0.9 cm LVOT diameter 2.4 cm LVPW (d) 1.0 cm HR 83 bpm Ao Sinus 3.6 cm LA Vol index 13 ml/m2 Asc Ao 3.4 cm RV Max 4C (d) 4.3 cm LA 3.8 cm Diastology: Mitral Tissue Doppler E Peak 0.4 m/s e', Septum 0.07 m/s A Peak 0.7 m/s e', Lateral 0.07 m/s E/A 0.6 E/e' Average 5.77 DT 150 msec Aortic Valve: Vmax 1.2 m/s LILIA (V) 3.62 cm VTI 0.22 m LILIA (I) 3.46 cm LVOT V max 1.0 m/s Max PG 6 mmHg LVOT VTI 0.17 m Mean PG 4 mmHg SV 75 ml Dim Index 0.76 SV index 35 ml/m CO 6.2 l/min CI 2.9 l/min/m Mitral Valve: MVA 5.1 cm MV P 1/2 44 msec Tricuspid Valve and estimated PA pressures: TAPSE 2.0 cm Pulmonic Valve: PV AT 71 msec PADP 4 mmHg . This study was interpreted by an [facility] accredited facility. 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 Expl anation Healthcare Directive 02/10/2024 INVALID , [place], 02/10/2024 Power of Software Security Architect 10/19/1996 DURABLE PO WER OF INSULATION AND FLOORING ASSEMBLER FOR HEALTH CARE, [facility], 10/19/1996 Power of Software Security Architect 10/19/1996 STATUTORY SHORT FORM POWER OF INSULATION AND FLOORING ASSEMBLER, [facility], 10/19/1996 Healthcare Directive 03/04/1993 HEALTH CARE DECLARATION, [facility], 03/04/1993 * Full Code (Latest Code Status on File) Date Activated Date Inactivated Comments 03/10/2024 9:42 AM 03/20/2024 2:31 PM Question Answer Comments Code Status Discussion: Unable to Assess Preferences, Provider to review later * Full Code Date Activated Date Inactivated Comments 02/11/2024 1:05 PM 02/11/2024 9:02 PM Question Answer Comments Code Status Discussion: Reviewed Preferences * Full Code Date Activated Date Inactivated Comments 03/20/2022 3:48 PM 03/22/2022 1:10 PM Question Answer Comments Code Status Discussion: Reviewed Preferences * Full Code Date Activated Date Inactivated Comments 04/06/2012 7:00 PM 04/07/2012 3:58 PM Care Teams Heading Up Machine Operator Relationship Specialty Start Date End Date Lindsay Toscano MD [address] [place] [address] PCP - General Family Practice 08/14/13 Pardeep Baird [facility] Surgery - Orthopedics 09/09/12 Rocael [address]z [address] [place] [address] Ophthalmology Surgery 09/09/12 [place] [address] [place] [address] Rheumatology 03/07/24
--- OUTSIDE RECORDS SUMMARY | 2024-04-14 12:08 | XMS_ITS | Clinical Summary ---
Author Organization [facility] Address [address] [facility] , [address] [place] [address] Phone Care Team Providers Care Fixed Income Manager Name Role Phone Marco Antonio Alicea MD Conditions or Problems Problem Name Problem Code Onset Date Status Entry Date Provider Comment Standard Description Annotate Leg weakness, bilateral 048748149 (SNOMED CT) Active Marco Antonio Alicea MD Paresis of lower extremity Peripheral polyneuropathy 550808425 (SNOMED CT) Active Marco Antonio Alicea MD Peripheral nerve disease Nonspecific paroxysmal spell 8700713 (SNOMED CT) 03/26 Active 03/26 Marco Antonio Alicea MD Disturbance of consciousness Mild cognitive impairment 443898226 (SNOMED CT) 03/19 Active 03/19 Marco Antonio Alicea MD Mild neurocognitive disorder Memory loss 76604061 (SNOMED CT) 10/31 Active 10/31 Marco Antonio Alicea MD Amnesia Medications Medication Instructions Start Date Stop Date Generic Name [facility] Provider PREDNISONE 20 MG TABS TAKE 1 TABLET (20 MG) BY MOUTH ONCE DAILY WITH A MEAL. prednisone [id number] Yue Ayaka Griffinucheril PA-C TROSPIUM CHLORIDE 20 MG TABS TAKE ONE TABLET BY MOUTH DAILY trospium [id number] Yue Garciail PA-C PREDNISONE 10 MG TABS TAKE 1-2 TABLETS (10-20 MG) BY MOUTH ONCE DAILY WITH A MEAL. DIRECTED prednisone [id number] Yue Griffinucheril PA-C GABAPENTIN 300 MG CAPS TAKE 1 CAPSULE (300 MG) BY MOUTH AT BEDTIME. gabapentin [id number] Yue Garciail PA-C ID NOW COVID-19 KIT TEST DIRECTED TODAY covid-19 molecular test assay [id number] Yue Schulte PA-C PREDNISONE 20 MG TABS TAKE 1 TABLET (20 MG) BY MOUTH ONCE DAILY WITH A MEAL. prednisone 59076631257 Yue Schulte PA-C ELIQUIS 5 MG TABS TAKE 1 TABLET (5 MG) BY MOUTH TWO TIMES DAILY. apixaban [id number] Yue Garciail PA-C TAMSULOSIN HCL 0.4 MG CAPS TAKE 1 CAPSULE (0.4 MG) BY MOUTH ONCE DAILY AFTER A MEAL. tamsulosin [id number] Yue Garciail PA-C ID NOW COVID-19 KIT TEST DIRECTED TODAY covid-19 molecular test assay [id number] Marco Antonio Alicea MD TRUE METRIX BLOOD GLUCOSE TEST STRP TEST 2 TIMES PER WEEK. blood sugar diagnostic [id number] Marco Antonio Alicea MD LISINOPRIL-HYD ROCHLOROTHIAZI DE 20-25 MG TABS lisinopril-hy drochlorothia zide [id number] Marco Antonio Alicea MD METFORMIN HCL ER 500 MG [id number] metformin [id number] Marco Antonio Alicea MD GLIPIZIDE ER 2.5 MG [id number] glipizide 80578802401 Marco Antonio Alicea MD SODIUM CHLORIDE 0.9 % SOLN sodium chloride [id number] Marco Antonio Alicea MD Medications Administered No information available. Allergies, Adverse Reactions, Alerts Allergy Name Reaction Description Start Date Severity Statu s Provider NKDA Mild Active Marco Antonio Alicea MD Results Date Name Value Unit Range Flag Description Internal Other: Verbal Autho rization/Emergency Contact - OBS VERBAL_EMER DONE Verbal authorization and emergency contact Office Visit: Office Visit f ax PHQ22 No Adolescent depression screening assessment Internal Other: Authorizatio n - OBS [email or web address] Yes Authoriza tion: Release of Information - Authorize [facility] - Payment and Healthcare Operations ROIAUTHOTHER Yes Authoriz ation: Release of Information - Authorize Others/Insurance - Payment and Healthcare Operations HIECONSENT Yes Consent To Release information to the Health Information Exchange (HIE) [email or web address] Yes Authorizat ion: Authorization for [facility] to leave messages, voicemail, send text messages, send emails AUTHRELHCARE Yes Authoriz ation: Release/Retrieval of Information to/from Healthcare Facilities, Pharmacy Benefit Payers and Providers AUTHPRIVPRAC Yes Authoriz ation: Notice of privacy practices AUTHBENEFIT Yes Authoriza tion: Assignment of Benefits and Payment Agreement Office Visit: Office Visit f ax MEDS REVIEW Done Documenta tion of current medications (procedure) DEMENTIA2 Assessment of cognition performed and results reviewed. Total score [M MSE] [id number] Normal Total scor e [MoCA] MMSE SCORE 28 Total scor e [MMSE] Plan of Care Type Date Detail Appointment 10:00 AM Marco Antonio Alicea MD , [address], [address], [place], [address], Pending order Follow up Pending order Follow up Pending order Follow up ABBY Pending order Patient Instruct ions Pending order Patient Instruct ions Pending order Follow up Pending order Patient Instruct ions Pending order Follow up ABBY in clinic or telemedicine Pending order Patient Instruct ions Pending order Follow up teleme dicine Pending order Neuropsychology Evaluation Procedures Code Procedure Name Date Entry Date CPT-16322 Nerve Conduction 11-12 studies CPT-80373 EMG with NCS (5+ muscles) - 2 limbs 12/22 LOINC 45915-0 MMSE ORDERS Patient Instructions ORDERS Follow up ABBY ORDERS Patient Instructions ORDERS Follow up [facility]-[id number] Documentation of current medicatio ns ORDERS Patient Instructions ORDERS Follow up ABBY in clinic or telemedicine 2 [facility] 55040-2 MMSE ORDERS Patient Instructions ORDERS Follow up telemedicine 10/31 [facility]-[id number] Documentation of current medicatio ns ORDERS Neuropsychology Evaluation 2 [facility]-[id number] Documentation of current medicatio ns [facility] 27383-4 MMSE Vital Signs No information available. Immunizations No information available. Advance Directives No information available.
--- OUTSIDE RECORDS SUMMARY | 2024-04-14 12:08 | XMS_ITS | Data Portability ---
[facility] Organization [facility] Address [address] [facility] [address] [place] [address] Care Team Providers Care Vp Ad Products And Planning Name Role Phone LINDSAY SANFORD Referring Provider Assessment No assessment recorded. Plan of Treatment Reminders Order Date Submit Date Provider Last Modified By Organization Details Last Modified Time Details Appointments PSA 10 2024 09:00A M [facility] Not available Not available Not available ESTABL ISHED 10 2024 09:20A M Louis Cook MD Not available Not available Not available Lab PSA, serum or plasma 2023 024 [email or web address] ro [facility], [address], [place], [address], 10/11/2023 10:19:21 PSA, total, serum or plasma [id number] [facility], [address] , [place], [address], 11/16/2023 14:09:54 PSA, total, serum or plasma [email or web address] [facility], [address], [place], [address], 04/26/2023 16:13:19 PSA, total, serum or plasma [email or web address] [facility], [address], [place], [address], 10/05/2022 08:59:41 Referral None record ed. Procedures None record [...] Not Available [facility] [address], [place], [address], 10/05/2023 17:03:38 Result Notes None recorded. Procedures Surgical History Date Name Laterality Status Provider Name and Address Organization Details Recorded Time 5 Blood Draw/SENIOR SOFTWARE QA ANALYST/PSA RESULTS [facility] 04/13/2024 14:14:30 4 Blood Draw/SENIOR SOFTWARE QA ANALYST/PSA RESULTS completed Carlos Enrique falcon [facility] 10/11/2023 10:18:27 3 Heart Surgery completed Louis Cook MD [address] [place] [address],[address], [address], [facility] 09/28/2022 16:37:35 procedure on spine completed Louis Cook MD [address] [place] [address],[address], [address], [facility] 09/28/2022 16:37:23 Imaging Results None recorded. [...] tablets in a dose pack TK 2 [facility] TS AND 1 RITONAVIR T TOGETHER PO BID FOR 5 DAYS active Not Available Not Available No t Available Vitals Date Recorded Body height Body mass index (BMI) Body weight Provider Name and Address Organization Details Last Updated DateTime 09/28/2022 175.26 cm 31 kg/m2 06294.4 g Louis Cook MD [address] [place] [address],[address], [address], [facility] 09/28/2022 16:34:03 Date Recorded Body height Body mass index (BMI) Body weight Provider Name and Address Organization Details Last Updated DateTime 04/26/2023 175.26 cm 31 kg/m2 90992.4 g Louis Cook MD [address] [place] [address],[address], [address], [facility] 04/26/2023 10:59:25 Date Recorded Body height Body mass index (BMI) Body weight Provider Name and Address Organization Details Last Updated DateTime 10/11/2023 175.26 cm 31 kg/m2 70964.4 g Louis Cook MD [address] [place] [address],[address], [address], [facility] 10/11/2023 09:57:43 Social History Question Answer Notes LastModified by Organizat ion Details LastModified Time Tobacco Smoking Status Former Smoker Louis Cook MD [address] [place] [address],[address], [address], [facility] 09/28/2022 16:37:00 What Is Your [...] High Blood Pressure Y Kidney Stones N Depression N Lung Disease N Sexually Transmitted Infection N Cancer Y High Cholesterol N Diabetes Y Bleeding Disorder Y Heart Disease Y Immunizations Vaccine Type Date Status Note Provider Nam e and Address Organization Details Recorded Time Influenza, high-dose, quadrivalent, PF 3 completed Louis Cook MD [address] [place] [address],[address], [address], [facility] 04/26/2023 10:59:30 RSV, recombinant, protein subunit RSVpreF, adjuvant reconstituted, 0.5 mL, PF 3 completed Louis Cook MD [address] [place] [address],[address], [address], [facility] 04/26/2023 10:59:31 COVID-19, mRNA, LNP-S, PF, 50 mcg/0.5 mL 3 completed Louis Cook MD [address] [place] [address],[address], [address], [facility] 04/26/2023 10:59:31 IPV 2 completed Susana Allar walter, [facility] 01/25/2023 09:28:19 Influenza, adjuvanted, trivalent, PF 7 completed Susana Allar null, [facility] 01/25/2023 09:28:19 Influenza, adjuvanted, trivalent, PF 9 completed Susana Allar null, [facility] 01/25/2023 09:28:19 Influenza, adjuvanted, trivalent, PF 8 completed Susana Allar null, [facility] 01/25/2023 09:28:19 zoster recombinant 0 completed Susana Allar null, [facility] 01/25/2023 09:28:19 zoster recombinant 9 completed Susana Allar null, [facility] 01/25/2023 09:28:19 Influenza, adjuvanted, quadrivalent, PF 0 completed Susana Allar null, [facility] 01/25/2023 09:28:19 Influenza, adjuvanted, quadrivalent, PF 2 completed Susana Allar null, [facility] 01/25/2023 09:28:19 Influenza, adjuvanted, quadrivalent, PF 1 completed Susana Allar null, [facility] 01/25/2023 09:28:19 COVID-19, mRNA, LNP-S, PF, 100 mcg/0.5mL dose or 50 mcg/0.25mL dose 1 completed Susana Allar null, [facility] 01/25/2023 09:28:19 COVID-19, mRNA, LNP-S, PF, 100 mcg/0.5mL dose or 50 mcg/0.25mL dose 1 completed Susana Allar null, [facility] 01/25/2023 09:28:19 COVID-19, mRNA, LNP-S, PF, 100 mcg/0.5mL dose or 50 mcg/0.25mL dose 1 completed Susana Allar null, [facility] 01/25/2023 09:28:19 Pneumococcal conjugate PCV20, polysaccharide KQV014 conjugate, adjuvant, PF 3 completed Susana Allar null, [facility] 01/25/2023 09:28:19 COVID-19, mRNA, LNP-S, PF, 30 mcg/0.3 mL dose, octavia-sucrose 2 completed Susana Allar null, [facility] 01/25/2023 09:28:19 COVID-19, mRNA, LNP-S, bivalent, PF, 50 mcg/0.5 mL or 25mcg/0.25 mL dose 3 completed Susana Allar null, [facility] 01/25/2023 09:28:19 COVID-19, mRNA, LNP-S, bivalent, PF, 50 mcg/0.5 mL or 25mcg/0.25 mL dose 2 completed Susana Allar null, [facility] 01/25/2023 09:28:19 pneumococcal polysaccharide PPV23 6 completed Susana Allar null, [facility] 01/25/2023 09:28:19 pneumococcal polysaccharide PPV23 6 completed Susana Allar null, [facility] 01/25/2023 09:28:19 Tdap 1 completed Susana Allar null, [facility] 01/25/2023 09:28:19 Tdap 1 completed Susana Allar null, [facility] 01/25/2023 09:28:19 Pneumococcal conjugate PCV 13 5 completed Ssuana Allar null, [facility] 01/25/2023 09:28:19 yellow fever live 2 completed Susana Allar null, [facility] 01/25/2023 09:28:19 yellow fever live 1 completed Susana Allar null, [facility] 01/25/2023 09:28:19 zoster live 7 completed Susana Allar null, [facility] 01/25/2023 09:28:19 Influenza, high-dose, trivalent, PF 4 completed Susana Allar null, [facility] 01/25/2023 09:28:19 Influenza, high-dose, trivalent, PF 6 completed Susana Allar null, [facility] 01/25/2023 09:28:19 Influenza, high-dose, trivalent, PF 5 completed Susana Allar null, [facility] 01/25/2023 09:28:19 Influenza, split virus, trivalent, preservative 2 completed Susana Allar null, [facility] 01/25/2023 09:28:19 Influenza, split virus, trivalent, preservative 1 completed Susana Allar null, [facility] 01/25/2023 09:28:19 Influenza, split virus, trivalent, preservative 6 completed Susana Allar null, [facility] 01/25/2023 09:28:19 Influenza, split virus, trivalent, preservative 4 completed Susana Allar null, [facility] 01/25/2023 09:28:19 Influenza, split virus, trivalent, preservative 3 completed Susana Allar null, [facility] 01/25/2023 09:28:19 Influenza, split virus, trivalent, preservative 0 completed Susana Allar null, [facility] 01/25/2023 09:28:19 Influenza, split virus, trivalent, preservative 7 completed Susana Allar null, [facility] 01/25/2023 09:28:19 Influenza, split virus, trivalent, preservative 5 completed Susana Allar null, [facility] 01/25/2023 09:28:19 Td (adult), 5 Lf tetanus toxoid, preservative free, adsorbed 5 completed Susana Allar null, [facility] 01/25/2023 09:28:19 typhoid, ViCPs 2 completed Susana Allar null, [facility] 01/25/2023 09:28:19 typhoid, ViCPs 1 completed Susana Allar null, [facility] 01/25/2023 09:28:19 Hep A-Hep B 2 completed Susana Allar null, [facility] 01/25/2023 09:28:19 Hep A-Hep B 2 completed Susana Allar null, [facility] 01/25/2023 09:28:19 Hep A-Hep B 2 completed Susana Allar null, [facility] 01/25/2023 09:28:19 Past Encounters Encounter ID Performer Location Encounter Start Date Encounter Closed Date Diagnosis/Indication Diagnosis SNOMED-CT Code Diagnosis ICD10 Code Diagnosis Note [id number] [facility] [place] [address] 09/28/2022 16:22:42 10/02/2022 13:32:27 Malignant tumor of prostate 209543970 C61 1. Prostate cancer- cT1c - Morgan 3+3 = 6 - on expectant management - PSA increased (11.80) - has fluctuated over the years- recheck PSA in November ([facility])- if PSA increases - check Prostate MRI and recommend TRUS bx Lower urin robbin tract symptoms due to benign prostatic hypertrophy 0890187539 9101 N40.1 2. BPH- voiding okay- continue Flomax 0.4 mg daily [id number] Louis Cook MD [facility] [place] [address] 04/26/2023 10:54:45 04/26/2023 12:03:27 Malignant tumor of prostate 073065023 C61 1. Prostate cancer- cT1c - Luisa 3+3 = 6 - on expectant management - PSA (9.08) - decreased has fluctuated over the years- recheck PSA in September ([facility])(if PSA increases significan t - check Prostate MRI and recommend TRUS bx Lower urin robbin tract symptoms due to benign prostatic hypertrophy 5770892634 9101 N40.1 2. BPH- voiding okay- continue Flomax 0.4 mg daily [id number] Louis Cook MD [facility] [place] [address] 10/11/2023 09:43:36 10/12/2023 08:25:39 Malignant tumor of prostate 653566720 C61 1. Prostate cancer- cT1c - Luisa 3+3 = 6 - on expectant management - PSA (10.5) - decreased has fluctuated over the years- Follow-up in 6 months with PSA(if PSA increases significan t - check Prostate MRI and recommend TRUS bx Lower urin robbin tract symptoms due to benign prostatic hypertrophy 9338300353 9101 N40.1 2. BPH- voiding okay- continue Flomax 0.4 mg daily Health Concerns Section Related Observation LastModified by Organization Detai ls LastModified Time None Recorded Concern Status LastModified by Organization Details LastModified Time None Recorded Advance Directives Directive None Recorded Payers Encounter Date Sequence Insurance Name Policy Number Policy Sam Covered Member ID Sam Member ID Guarantor Name 09/28/2022 1 [place]) [id number] Enrike Coleman [id number] Enrike Coleman 04/26/2023 1 [place] [id number] Enrike Coleman [id number] Enrike Coleman 10/11/2023 1 [place] [id number] Enrike Coleman [id number] Enrike Coleman Notes Date Note Type Note [...] underwent MRI bx (10/31/14) of lesion at [facility] - benign. No family H/O prostate cancer. [...] 8.30 (06/09/21)- 11.80 (09/15/22) Louis Cook MD [address] [place] [address],[facility] [address], [place], [address], [facility] 09/28/2022 17:22:15 04/26/2023 text/html 83 yo [...] underwent MRI bx (10/31/14) of lesion at [facility] - benign. No family H/O prostate cancer. [...] 11.80 (09/15/22)- 9.08 (04/16/23) Louis Cook MD [address] [place] [address],[facility] [address], [address], [facility] 04/26/2023 11:10:14 10/11/2023 text/html 83 yo male with history of A.fib (on Eliquis), HTN, DM, memory loss, BPH, and Prostate cancer - T1c - Luisa 3+3 = 6 - involving /10 cores (< 5%) on Left - TRUS bx (12/15/12) by Dr. Herrera - on expectant management. Prostate MRI (2014) revealed a PI-RADS 2 lesion - underwent MRI bx (10/31/14) of lesion at [facility] - benign. No family H/O prostate cancer. [...] 11.80 (09/15/22)- 9.08 (04/16/23) Louis Cook MD [address] [facility], [place], [address], [facility] 10/11/2023 10:30:45
--- OUTSIDE RECORDS SUMMARY | 2024-04-14 12:08 | XMS_ITS | Clinical Summary ---
Author Organization [facility] Address [address], [place] [address] Care Team Providers Care Lunch Counter Manager Name Role Phone Unavailable Primary Care Provider [...] for each transition of care or referral. [facility] Allergies No known active allergies Medications metFORMIN (GLUCOPHAGE) 500 MG tablet Take 500 mg by mouth three times a day. Active Social History Tobacco Use Types Packs/Day Years Used Date Smoking Tobacco: Never Smokeless Tobacco: Never Sex and Gender Information Value Date Recorded Sex Assigned at Not on file Legal Sex Male 3:29 PM CDT Gender Identity Not on file Sexual Orientation Not on file Last Filed Vital Signs Vital Sign Reading Time Taken Comments Blood Pressure 156/79 12/05/2017 3:52 PM CDT Pulse 68 12/05/2017 3:52 PM CDT Temperature 36.5 C (97.7 F) 12/05/2017 3:52 PM CDT Respiratory Rate 20 12/05/2017 3:52 PM CDT Oxygen Saturation 98% 12/05/2017 3:52 PM CDT Inhaled Oxygen Concentration - - Weight - - Height - - Body Mass Index - - Plan of Treatment Health Maintenance Due Date Last Done Comments Medicare Annual Wellness Visit 1938 DTaP/Tdap/Td (1 - Tdap) 1957 Zoster/Shingles (1 of 2) 02/21/1988 Pneumococcal 50+ Yrs (1 - PCV) 2003 RSV (1 - 1-dose 75+ series) 2013 COVID-19 Vaccine (1 - 2023-2 5 season) 2023 Influenza (#1) 2023 HepA Aged Out No longer eligi [...] on patient's age to complete this topic Insurance MEDICARE BCBS MEDICARE SUPPLEMENT
--- OUTSIDE RECORDS SUMMARY | 2024-04-14 12:08 | XMS_ITS | Continuity of Care Document ---
Author Organization [facility] Address [address] [place] [address] Phone Care Team Providers Care Yarder Engineer Name Role Phone Pardeep Baird MD Unavailable Unavailable Medications Medication Instructions Dosage Effective Dates (start - stop) Status Comments ALEVE (unknown strength) Not Available - Active OXYCODONE HCL (unknown strength) Not Available - Active GABAPENTIN (unknown strength) Not Available - Active TYLENOL (unknown strength) Not Available - Active Procedures [...] Copied on Encounter [facility], [address], [place], [place], [id number], [place] tel:[phone] [facility] No Information 5 Brie Roberto. [facility] [place], [facility] [address] [place] [address], [facility] [address], [place], [id number], [place]. tel:[phone] Office/Outpa tient Visit,Est, Low Z [facility] [place], [address] [place] [address], [address], [place] tel:[phone] [facility] No Information 3 [address] [place] [address], [id number], [place]. tel:[phone] Referring Provider: Brayden Hart, [facility], [place], [address]. tel:[phone] Z [facility], [address] [place] [address], [facility], [place] tel:[phone] [facility] No Information 0 [address] [place] [address], [id number], [place]. tel:[phone] Referring Provider: Brayden Hart, [facility], [place], [address]. tel:[phone] Z [facility] [place], [address] [place] [address], [facility], [place] tel:[phone] [facility] No Information 0 [address] [place] [address], [id number], [place]. tel:[phone] Z [facility] [place], [address] [place] [address], [facility], [place] tel:[phone] [facility] No Information 0 3 [employer] Ensor. [facility] [place], [address] [place] [address], [id number], [place]. tel:[phone] Referring Provider: Brayden Hart, [facility], [place], [address]. tel:[phone] Office/Outpa tient Visit,[facility], [facility], [address] [place] [address], [facility], [place] tel:[phone] [facility] LUMBAGO 3 [employer] Ensor. [facility] [place], [address] [place] [address], [address], [id number], [place]. tel:[phone] Referring Provider: Brayden Hart, [place] [address], [place], [address]. tel:[phone] Family History Family Member Type Diagnosis Age [...]
[2024-04-14 12:13] VITALS: BP 119/62; PULSE 89; RESP 20; TEMP 36.9; O2SAT 98; BMI 33.0
[2024-04-14 13:25] LABS: Lactate* 1.5 mmol/L (0.5-1.9)
[2024-04-14 13:31] LABS: Basophils Absolute Auto 0.02 K/uL (0.00-0.30); Basophils Percent Auto 0.2 % (0.0-3.0); Eosinophils Absolute Auto 0.04 K/uL (0.00-0.50); Eosinophils Percent Auto 0.4 % (0.0-7.0); Hemoglobin* 9.7 gm/dL (13.5-17.5); Immature Granulocytes Abs Auto 0.01 K/uL (0.00-0.30); Immature Granulocytes Pct Auto 0.1 %; Lymphocytes Percent Auto 10.6 % (20-44); Mean Corpuscular HGB Conc 30 gm/dL (32-36); Mean Corpuscular Hemoglobin 27 pg (26-34); Mean Corpuscular Volume 90 fL (80-100); Monocytes Percent Auto 9.3 % (0.0-11.0); Neutrophils Percent Auto 79.4 % (42.0-72.0); Platelet Count* 178 K/uL (140-440); RDW Coefficient of Variation % 14.4 % (11.5-15.5); Red Blood Count 3.56 m/uL (4.30-5.90); White Blood Count* 9.18 K/uL (4.50-11.00)
[2024-04-14 13:33] LABS: Slide Review Reflex No
[2024-04-14 13:56] LABS: Chloride* 106 mmol/L (96-114); Sodium* 137 mmol/L (135-149)
[2024-04-14 13:57] LABS: Potassium* 4.3 mmol/L (3.6-5.1)
--- NOTE | 2024-04-14 13:57 | ED.GENADULT ---
HPI - General Adult General Chief complaint: Extremity Pain/Injury, Lower Stated complaint: Cellulitis - from [facility] Time Seen by Provider: 04/14/24 12:07 Source: patient Mode of arrival: ambulatory Limitations: no limitations History of Present Illness HPI narrative: 84-year-old male presenting today with concerns of an infection of his buttocks. He saw his primary care provider yesterday and received 1 dose of IM antibiotics. Followed up today for his 2nd dose of antibiotics and he was instructed to come to the ER because the redness had increased. Patient is not taking any oral antibiotics. He denies fevers or chills. He states that his energy is a little bit lower than usual, normal appetite and no vomiting. Related Data Home Medications ?Medication ?Instructions ?Recorded ?Confirmed apixaban 5 mg tablet (Eliquis) 5 mg PO Q12H 02/15/22 02/24/24 blood sugar diagnostic (True 02/15/22 08/06/23 Metrix Glucose Test Strip) lisinopril 20 1 tab PO DAILY 02/15/22 02/24/24 mg-hydrochlorothiazide 25 mg tablet metformin 500 mg tablet,extended 2,000 mg PO DAILY 02/15/22 02/24/24 release 24 hr acetaminophen 500 mg capsule 500 mg PO Q6H PRN 07/27/23 02/24/24 cyanocobalamin (vitamin B-12) 1,000 mcg PO QDAY 07/27/23 02/24/24 1,000 mcg capsule gabapentin 300 mg capsule 300 mg PO QPM 07/27/23 02/24/24 glipizide 5 mg tablet, extended 15 mg PO DAILY 07/27/23 02/24/24 release 24 hr prednisone 5 mg tablet 5 - 15 mg PO DAILY 07/27/23 02/24/24 tamsulosin 0.4 mg capsule 0.4 mg PO DAILY 07/27/23 02/24/24 trospium 20 mg tablet 20 mg PO DAILY 07/27/23 02/24/24 empagliflozin 10 mg tablet 10 mg PO DAILY 02/24/24 02/24/24 (Jardiance) glipizide 10 mg tablet, extended mg PO 02/24/24 release 24 hr isosorbide mononitrate 30 mg 30 mg PO DAILY 02/24/24 02/24/24 tablet,extended release 24 hr metoprolol succinate 25 mg 12.5 mg PO DAILY 02/24/24 02/24/24 tablet,extended release 24 hr nitroglycerin 0.4 mg sublingual mg sublingual 02/24/24 tablet prednisone 10 mg tablet 10 - 15 mg PO DAILY 02/24/24 02/24/24 rosuvastatin 20 mg tablet 20 mg PO QPM 02/24/24 02/24/24 sacubitril 24 mg-valsartan 26 mg 1 tab PO BID 02/24/24 02/24/24 tablet (Entresto) terbinafine HCl 1 % topical cream applic topical BID 02/24/24 cephalexin 500 mg capsule 500 mg PO QID 04/14/24 04/14/24 Allergies Allergy/AdvReac Type Severity Reaction Status Date / Time No Known Drug Allergies Allergy Verified 02/24/24 09:03 Review of Systems Status of ROS: Reports: 10 or more systems reviewed and unremarkable except as noted in History and below [facility] Medical History BPH without urinary obstruction ?N40.0 - Benign prostatic hyperplasia without lower urinary tract symptoms (ICD-10) Mild cognitive impairment ?G31.84 - Mild cognitive impairment of uncertain or unknown etiology (ICD-10) Prostate cancer ?C61 - Malignant neoplasm of prostate (ICD-10) Mobitz (type) I (Wenckebach's) atrioventricular block ?I44.1 - Atrioventricular block, second degree (ICD-10) Atrial fibrillation ?I48.91 - Unspecified atrial fibrillation (ICD-10) Iron deficiency anemia ?D50.9 - Iron deficiency anemia, unspecified (ICD-10) Erectile dysfunction ?N52.9 - Male erectile dysfunction, unspecified (ICD-10) Displacement of lumbar intervertebral disc without myelopathy ?M51.26 - Other intervertebral disc displacement, lumbar region (ICD-10) Degeneration of lumbar or lumbosacral intervertebral disc ?M51.37 - Other intervertebral disc degeneration, lumbosacral region (ICD-10) Vitamin B12 deficiency ?E53.8 - Deficiency of other specified B group vitamins (ICD-10) Lumbar radiculopathy ?M54.16 - Radiculopathy, lumbar region (ICD-10) 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 - Complete traumatic metacarpophalangeal amputation of unspecified finger, initial encounter (ICD-10) Diabetes ?E11.9 - Type 2 diabetes mellitus without complications (ICD-10) COVID ?U07.1 - COVID-19 (ICD-10) Surgical History History of permanent cardiac pacemaker placement ?Z95.0 - Presence of cardiac pacemaker (ICD-10) History of cholecystectomy ?Z90.49 - Acquired absence of other specified parts of digestive tract (ICD-10) History of appendectomy ?Z90.49 - Acquired absence of other specified parts of digestive tract (ICD-10) History of arthroscopy of left shoulder (03/21/96) ?Z98.890 - Other specified postprocedural states (ICD-10) History of arthroscopy of right shoulder (11/26/11) ?Z98.890 - Other specified postprocedural states (ICD-10) S/P ORIF (open reduction internal fixation) fracture (04/05/14) ?Z98.890 - Other specified postprocedural states (ICD-10) ?Z87.81 - Personal history of (healed) traumatic fracture (ICD-10) Family History Mother Bowel cancer Social History Smoking Status: Former smoker Do you use any of these nicotine containing products: None Second hand tobacco smoke exposure: Yes How often do you have a drink containing alcohol: 4 or more times a week How many standard drinks containing alcohol do you have on a typical day: 1 or 2 AUDIT-C Alcohol total score: 4 Non-prescribed substance use: denies use Exam Narrative: Exam Narrative: Well-nourished well-developed patient in no acute distress. Alert and oriented. Answers questions appropriately. Mood and affect are appropriate. Thoughts are goal oriented and rational. No tangential or magical thinking noted. Patient speaks in full sentences without needing to catch his breath. HEENT: Normocephalic atraumatic. Extraocular muscles are intact. Conjunctivae are moist without any icterus noted. Moist mucous membranes. Back: Back is normal appearance. Patient has a 1st degree ulcer surrounding the intergluteal cleft. Just lateral on the right side of the gluteal cleft around the lower curvature of the buttocks he has of area several cm in diameter that is firm to palpation and very tender. There is surrounding erythema and heat. There is no broken skin. Const: Vital Signs, click to edit/add: Vital Signs - 24 hr 04/14/24 12:13 Temperature 98.5 F Pulse Rate [Pulse Oximeter] 89 Respiratory Rate 20 Blood Pressure [Ri ght Upper Arm] 119/62 Pulse Oximetry 98 Oxygen Delivery Me thod Room Air Course Course ED Course: Ultrasound of the area was done and did not show any evidence of abscess formation. CBC does not show an elevated white cell count nor does he have an elevated lactate. Vital Signs Vital signs: Initial Vital Signs Temperature 98.5 F 04/14/24 12:13 Temperature Source Temporal Artery Scan 04/14/24 12:13 Pulse Rate 89 04/14/24 12:13 Respiratory Rate 20 04/14/24 12:13 Blood Pressure 119/62 04/14/24 12:13 Blood Pressure Mean 81 04/14/24 12:13 Blood Pressure Position Sitting 04/14/24 12:13 Pulse Oximetry 98 04/14/24 12:13 Oxygen Delivery Method Room Air 04/14/24 12:13 Vital Signs Temperature 98.5 F 04/14/24 12:13 Pulse Rate 89 04/14/24 12:13 Respiratory Rate 20 04/14/24 12:13 Blood Pressure 119/62 04/14/24 12:13 Pulse Oximetry 98 04/14/24 12:13 Oxygen Delivery Method Room Air 04/14/24 12:13 Temperature 98.5 F 04/14/24 12:13 Pulse Rate 89 04/14/24 12:13 Respiratory Rate 20 04/14/24 12:13 Blood Pressure 119/62 04/14/24 12:13 Pulse Oximetry 98 04/14/24 12:13 Oxygen Delivery Method Room Air 04/14/24 12:13 Medical Decision Making MDM Narrative Medical decision making narrative: 84-year-old male with cellulitis of the buttocks. IV Rocephin given in the ED today. Patient was given a prescription for Keflex that he took 1 dose last night but nothing today, encouraged to start taking that as prescribed. Discussed reasons to return to the ER versus following up with primary care. Lab Data Lab results reviewed: Yes I reviewed the patient's lab results Labs: Lab Results 04/14/24 Range/Units 13:20 WBC 9.18 (4.50-11.00) K/uL RBC 3.56 L (4.30-5.90) m/uL Hgb 9.7 L (13.5-17.5) gm/dL Hct 32.0 L (37.0-53.0) % MCV 90 (80-100) fL MCH 27 (26-34) pg MCHC 30 L (32-36) gm/dL RDW Coeff of Ferny 14.4 (11.5-15.5) % Plt Count 178 (140-440) K/uL Neut % (Auto) 79.4 H (42.0-72.0) % Lymph % (Auto) 10.6 L (20-44) % Hockley % (Auto) 9.3 (0.0-11.0) % Eos % (Auto) 0.4 (0.0-7.0) % Baso % (Auto) 0.2 (0.0-3.0) % Neut # (Auto) 7.30 H (1.7-7.0) K/uL Lymph # (Auto) 1.00 (0.90-2.90) K/uL Hockley # (Auto) 0.90 (0.00-0.90) K/UL Eos # (Auto) 0.04 (0.00-0.50) K/uL Baso # (Auto) 0.02 (0.00-0.30) K/uL Abs Immat Gran (auto) 0.01 (0.00-0.30) K/uL Imm/Tot Granulo (auto) 0.1 % Lactate 1.5 (0.5-1.9) mmol/L Imaging Data Soft tissue ultrasound: Attestation: I have reviewed the pertinent imaging results. Radiologist's impression: Right buttock induration. COMPARISON: None available. TECHNIQUE: Grayscale and color Doppler sonographic interrogation of the area of concern, is demonstrated by the patient to the technologist. The study was performed remotely without radiologist present. FINDINGS/IMPRESSION: In the superficial soft tissues of the right buttock there is a heterogeneous hypoechoic focus abutting the posterior dermal line (subcutaneous) measuring 2.6 x 0.9 x 2.2 cm in transverse, AP and craniocaudad dimensions, respectively, with peripheral vascularity and diffusely increased hyperechogenicity of the surrounding soft tissues, which is consistent with surrounding edema. Differential diagnostic considerations for this focus include phlegmonous change and fat necrosis, for example. There is no significant fluid element to indicate an abscess, for example. Overlying skin thickening is noted consistent with edema/cellulitis. Clinical follow-up is suggested. Discharge Plan Discharge Clinical Impression: Cellulitis Patient Disposition: Home, Self-Care Condition: Stable Instructions: Cellulitis (ED) Additional Instructions: Take antibiotics as prescribed. Monitor the area of redness daily. If it gets significantly bigger in the next 24 hours, return to the emergency department. Also recommend returning to the emergency department if you develop fever, vomiting or weakness. If the redness does not increase in size then you should follow-up with your primary care provider 1st thing on Wednesday. Prescriptions: No Action prednisone 5 mg tablet 5 - 15 mg PO DAILY glipizide 5 mg tablet extended release 24hr 15 mg PO DAILY trospium 20 mg tablet 20 mg PO DAILY tamsulosin 0.4 mg capsule 0.4 mg PO DAILY gabapentin 300 mg capsule 300 mg PO QPM cyanocobalamin (vitamin B-12) 1,000 mcg capsule 1,000 mcg PO QDAY acetaminophen 500 mg capsule 500 mg PO Q6H PRN terbinafine HCl 1 % cream topical BID prednisone 10 mg tablet 10 - 15 mg PO DAILY glipizide 10 mg tablet extended release 24hr PO isosorbide mononitrate 30 mg tablet extended release 24 hr 30 mg PO DAILY nitroglycerin 0.4 mg tablet, sublingual sublingual metoprolol succinate 25 mg tablet extended release 24 hr 12.5 mg PO DAILY rosuvastatin 20 mg tablet 20 mg PO QPM Jardiance 10 mg tablet 10 mg PO DAILY sacubitril-valsartan [Entresto] 24-26 mg tablet 1 tab PO BID (DME) True Metrix Glucose Test Strip Strip MISCELLANEOUS Patient Comments: TEST 2 TIMES PER WEEK. lisinopril-hydrochlorothiazide 20-25 mg tablet 1 tab PO DAILY Patient Comments: TAKE ONE TABLET BY MOUTH ONCE DAILY metformin 500 mg tablet extended release 24 hr 2,000 mg PO DAILY Patient Comments: TAKE 4 TABLETS (2,000 MG) BY MOUTH ONCE DAILY WITH EVENING MEAL. Eliquis 5 mg tablet 5 mg PO Q12H Patient Comments: TAKE 1 TABLET (5 MG) BY MOUTH TWO TIMES DAILY. Follow Up/Referrals: Bari Toscano MD [Primary Care Provider] - Stand Alone Forms: Burstly Info Instructions
[2024-04-14 13:59] LABS: Anion Gap 11 mEq/L (7-15); Carbon Dioxide* 20 mmol/L (20-32); Creatinine* 0.8 mg/dL (0.5-1.5); Estimated Glomerular Filt Rate 86 ml/min
[2024-04-14 14:00] LABS: Blood Urea Nitrogen* 19 mg/dL (7-30); Calcium* 8.8 mg/dL (8.4-10.6); Glucose* 148 mg/dL (60-115)
[2024-04-14 14:04] LABS: C Reactive Protein* 8.5 mg/dL (0.5-1.0)
--- OUTSIDE RECORDS SUMMARY | 2024-04-14 14:05 | XMS_ITS | Continuity of Care Document ---
Author Organization [facility] Address [address] [place] [address] Phone Care Team Providers Care Social Security Assessor Name Role Phone Pardeep Baird MD Unavailable [...] Surgical Assist Decompress Lumbar Spinalcord Seg Office/Outpatient Visit,[facility] 2012 Advance Directives Directive Yes / No Effective Date File Name No Information Encounters Encounter Description Practice Location Reason(s) For Visit Diagnoses Date Provider Providers Copied on Encounter [facility], [address], [place], [place], [id number], [place] tel:[phone] [facility] No Information 5 Brie Roberto. [facility], [facility] [address] [place] [address], [facility] [address], [place], [id number], [place]. tel:[phone] Office/Outpa tient Visit,Est, Low Z [facility], [address] [place] [address] [address], [place], [address], [place] tel:[phone] [facility] No Information 3 [address] [place] [address], [id number], [place]. tel:[phone] Referring Provider: Brayden Hart, [facility], [place], [address]. tel:[phone] Z [facility], [address] [place] [address], [facility], [place] tel:[phone] [facility] No Information 0 [address] [place] [address], [id number], [place]. tel:[phone] Referring Provider: Brayden Hart, [facility], [place], [address]. tel:[phone] Z [facility], [address] [place] [address], [facility], [place] tel:[phone] [facility] No Information 0 [address] [place] [address], [id number], [place]. tel:[phone] Z [facility], [address] [place] [address], [facility], [place] tel:[phone] [facility] No Information 0 3 Transfeldt Ensor. [facility], [address] [place] [address], [id number], [place]. tel:[phone] Referring Provider: Brayden Hart, [facility], [place], [address]. tel:[phone] Office/Outpa [facility]ient Visit,[facility], [facility] [place] [facility], [address] [place] [address], [facility], [place] tel:[phone] [facility] LUMBAGO 3 [address]or. [facility], [address] [place] [address], [address], [id number], [place]. tel:[phone] Referring Provider: Brayden Hart, [place] [address] [address], [place], [address]. tel:[phone] Family History Family Member Type Diagnosis Age [...]
--- OUTSIDE RECORDS SUMMARY | 2024-04-14 14:05 | XMS_ITS | Clinical Summary ---
Author Organization [facility] Address [address] , [address] [place] [address] Phone Care Team Providers Care Workers' Compensation Hearings Officer Name Role Phone Marco Antonio Alicea MD Conditions or Problems Problem Name Problem Code Onset Date Status Entry Date Provider Comment Standard Description Annotate Leg weakness, bilateral 497617349 (SNOMED CT) Active Marco Antonio Alicea MD Paresis of lower extremity Peripheral polyneuropathy 097558110 (SNOMED CT) Active Marco Antonio Alicea MD Peripheral nerve disease Nonspecific paroxysmal spell 7801834 (SNOMED CT) 03/26 Active 03/26 Marco Antonio Alicea MD Disturbance of consciousness Mild cognitive impairment 894703734 (SNOMED CT) 03/19 Active 03/19 Marco Antonio Alicea MD Mild neurocognitive disorder Memory loss 34350177 (SNOMED CT) 10/31 Active 10/31 Marco Antonio Alicea MD Amnesia Medications Medication Instructions Start Date Stop Date Generic Name [facility] Provider PREDNISONE 20 MG TABS TAKE 1 TABLET (20 MG) BY MOUTH ONCE DAILY WITH A MEAL. prednisone [id number] Yue Ayaka Griffinucheril PA-C TROSPIUM CHLORIDE 20 MG TABS TAKE ONE TABLET BY MOUTH DAILY trospium [id number] Yue Garciail PA-C PREDNISONE 10 MG TABS TAKE 1-2 TABLETS (10-20 MG) BY MOUTH ONCE DAILY WITH A MEAL. DIRECTED prednisone [id number] Yue Griffinucheril PA-C GABAPENTIN 300 MG CAPS TAKE 1 CAPSULE (300 MG) BY MOUTH AT BEDTIME. gabapentin [id number] Yue Garciail PA-C ID NOW COVID-19 KIT TEST DIRECTED TODAY covid-19 molecular test assay [id number] Yue Schulte PA-C PREDNISONE 20 MG TABS TAKE 1 TABLET (20 MG) BY MOUTH ONCE DAILY WITH A MEAL. prednisone [id number] Yue Schulte PA-C ELIQUIS 5 MG TABS TAKE 1 TABLET (5 MG) BY MOUTH TWO TIMES DAILY. apixaban [id number] Yue Garciail PA-C TAMSULOSIN HCL 0.4 MG CAPS TAKE 1 CAPSULE (0.4 MG) BY MOUTH ONCE DAILY AFTER A MEAL. tamsulosin [id number] Yue Garciail PA-C ID NOW COVID-19 KIT TEST DIRECTED TODAY covid-19 molecular test assay [id number] Marco Antonio Alicea MD TRUE METRIX BLOOD GLUCOSE TEST STRP TEST 2 TIMES PER WEEK. blood sugar diagnostic [id number] Marco Antonio Alicea MD LISINOPRIL-HYD ROCHLOROTHIAZI DE 20-25 MG TABS lisinopril-hy drochlorothia zide [id number] Marco Antonio Alicea MD METFORMIN HCL ER 500 MG [id number] metformin [id number] Marco Antonio Alicea MD GLIPIZIDE ER 2.5 MG [id number] glipizide [id number] Marco Antonio Alicea MD SODIUM CHLORIDE 0.9 % SOLN sodium chloride [id number] Marco Antonio Alicea MD Medications Administered No [...] and results reviewed. Total score [M MSE] [id number] Normal Total scor e [MoCA] MMSE SCORE 28 Total scor e [MMSE] Plan of Care Type Date Detail Appointment 10:00 AM [place] , [address], [address], [place], [address], Pending order Follow up Pending order Follow up Pending order Follow up ABBY Pending order Patient Instruct ions Pending order Patient Instruct ions Pending order Follow up Pending order Patient Instruct ions Pending order Follow up ABBY in clinic or telemedicine Pending order Patient Instruct ions Pending order Follow up teleme dicine Pending order Neuropsychology Evaluation Procedures Code Procedure Name Date Entry Date CPT-64401 Nerve Conduction 11-12 studies CPT-61999 EMG with NCS (5+ muscles) - 2 limbs 12/22 LOINC 07955-0 MMSE ORDERS Patient Instructions ORDERS Follow up ABBY ORDERS Patient Instructions ORDERS Follow up [facility]-[id number] Documentation of current medicatio ns ORDERS Patient Instructions ORDERS Follow up ABBY in clinic or telemedicine 2 [facility] 25120-5 MMSE ORDERS Patient Instructions ORDERS Follow up telemedicine 10/31 [facility]-[id number] Documentation of current medicatio ns ORDERS Neuropsychology Evaluation 2 [facility]-[id number] Documentation of current medicatio ns [facility] 62039-7 MMSE Vital Signs No information available. Immunizations No information available. Advance Directives No information available.
--- OUTSIDE RECORDS SUMMARY | 2024-04-14 14:05 | XMS_ITS | Clinical Summary ---
Author Organization [facility] Address [address], [place] [address] Care Team Providers Care Tensioning Machine Operator Name Role Phone Unavailable Primary Care Provider [...]
[2024-04-14] MEDS: cefTRIAXone 1 GM in 0.9 % SODIUM CHLORIDE Mini-bag 100 ML IVPB (14:30)
== END 2024-04-14 15:21 | disposition home or self-care (01) ==
PROVIDERS: Emergency Provider Family Medicine; PCP Family Medicine
DX: L03.317 Cellulitis of buttock (principal)
CPT/HCPCS: 36415; 76882; 80048; 83605; 85025; 86140; 96365; 99284; 99285; J0696

== ENCOUNTER 2024-04-16 06:26 | Emergency (ER) | payer MEDICARE, SELFPAY ==
--- OUTSIDE RECORDS SUMMARY | 2024-04-16 06:30 | XMS_ITS | Data Portability ---
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, [place], [address], 10/11/2023 10:19:21 PSA, total, serum or plasma 2023 024 [id number] [facility], [address] , [place], [address], 11/16/2023 14:09:54 PSA, total, serum or plasma 2023 024 [email or web address] [facility], [address], [place], [address], 04/26/2023 16:13:19 PSA, total, serum or plasma 2022 023 [id number] [facility], [address], [place], [address], 10/05/2022 08:59:41 Referral None record ed. Procedures [...] Not Available [facility] [address], [place], [address], 10/05/2023 17:03:38 Result Notes None recorded. Procedures Surgical History Date Name Laterality Status Provider Name and Address Organization Details Recorded Time 5 Blood Draw/VISION THERAPIST/PSA RESULTS active [facility] 04/13/2024 14:14:30 4 Blood Draw/VISION THERAPIST/PSA RESULTS completed Carlos Enrique [facility]con [facility] 10/11/2023 10:18:27 3 Heart Surgery completed Louis Cook MD [address] [place] [address],[address], [address], [facility] 09/28/2022 16:37:35 procedure on spine completed Louis Cook MD [address] [place] [address],[address], [address], [facility] 09/28/2022 16:37:23 Imaging Results None recorded. [...] tablets in a dose pack TK 2 [facility] TS AND 1 RITONAVIR T TOGETHER PO BID FOR 5 DAYS active Not Available Not Available No t Available Vitals Date Recorded Body height Body mass index (BMI) Body weight Provider Name and Address Organization Details Last Updated DateTime 09/28/2022 175.26 cm 31 kg/m2 51003.4 g Louis Cook MD [address] [place] [address],[address], [address], [facility] 09/28/2022 16:34:03 Date Recorded Body height Body mass index (BMI) Body weight Provider Name and Address Organization Details Last Updated DateTime 04/26/2023 175.26 cm 31 kg/m2 40612.4 g Louis Cook MD [address] [place] [address],[address], [address], [facility] 04/26/2023 10:59:25 Date Recorded Body height Body mass index (BMI) Body weight Provider Name and Address Organization Details Last Updated DateTime 10/11/2023 175.26 cm 31 kg/m2 80498.4 g Louis Cook MD [address] [place] [address],[address], [address], [facility] 10/11/2023 09:57:43 Social History Question Answer Notes LastModified by Organizat ion Details LastModified Time Tobacco Smoking Status Former Smoker Louis Cook MD [address] [place] [address],[address], [address], [facility] 09/28/2022 16:37:00 What Is Your Level [...] Pressure Y Kidney Stones N Depression N Sexually Transmitted Infection N Cancer Y Bleeding Disorder Y Lung Disease N High Cholesterol N Diabetes Y Heart Disease Y Immunizations Vaccine Type Date Status Note Provider Nam e and Address Organization Details Recorded Time Influenza, high-dose, quadrivalent, PF 3 completed Louis Cook MD [address] [place] [address],[address], [address], [facility] 04/26/2023 10:59:30 RSV, recombinant, protein subunit RSVpreF, adjuvant reconstituted, 0.5 mL, PF 3 completed Louis Cook MD [address] [place] [address],[address], [address], [facility] 04/26/2023 10:59:31 COVID-19, mRNA, LNP-S, PF, 50 mcg/0.5 mL 3 completed Louis Cook MD [address] [place] [address],[address], [address], [facility] 04/26/2023 10:59:31 IPV 2 completed Susana Allar walter, [facility] 01/25/2023 09:28:19 Influenza, adjuvanted, trivalent, PF 7 completed Susana Allar null, [facility] 01/25/2023 09:28:19 Influenza, adjuvanted, trivalent, PF 9 completed Susana Allar null, [facility] 01/25/2023 09:28:19 Influenza, adjuvanted, trivalent, PF 8 completed Susana Allar null, [facility] 01/25/2023 09:28:19 zoster recombinant 0 completed Susana Allar null, [facility] 01/25/2023 09:28:19 zoster recombinant 9 completed Susana Allar null, [facility] 01/25/2023 09:28:19 Influenza, adjuvanted, quadrivalent, PF 0 completed Susana Allar null, [facility] 01/25/2023 09:28:19 Influenza, adjuvanted, quadrivalent, PF 2 completed Susana Allar null, [facility] 01/25/2023 09:28:19 Influenza, adjuvanted, quadrivalent, PF 1 completed Susana Allar null, [facility] 01/25/2023 09:28:19 COVID-19, mRNA, LNP-S, PF, 100 mcg/0.5mL dose or 50 mcg/0.25mL dose 1 completed Susana Allar null, [facility] 01/25/2023 09:28:19 COVID-19, mRNA, LNP-S, PF, 100 mcg/0.5mL dose or 50 mcg/0.25mL dose 1 completed Susana Allar null, [facility] 01/25/2023 09:28:19 COVID-19, mRNA, LNP-S, PF, 100 mcg/0.5mL dose or 50 mcg/0.25mL dose 1 completed Susana Allar null, [facility] 01/25/2023 09:28:19 Pneumococcal conjugate PCV20, polysaccharide [id number] conjugate, adjuvant, PF 3 completed Susana Allar null, [facility] 01/25/2023 09:28:19 COVID-19, mRNA, LNP-S, PF, 30 mcg/0.3 mL dose, octavia-sucrose 2 completed Susana Allar null, [facility] 01/25/2023 09:28:19 COVID-19, mRNA, LNP-S, bivalent, PF, 50 mcg/0.5 mL or 25mcg/0.25 mL dose 3 completed Susana Allar null, [facility] 01/25/2023 09:28:19 COVID-19, mRNA, LNP-S, bivalent, PF, 50 mcg/0.5 mL or 25mcg/0.25 mL dose 2 completed Susana Allar null, [facility] 01/25/2023 09:28:19 pneumococcal polysaccharide PPV23 6 completed Susana Allar null, [facility] 01/25/2023 09:28:19 pneumococcal polysaccharide PPV23 6 completed Susana Allar null, [facility] 01/25/2023 09:28:19 Tdap 1 completed Susana Allar null, [facility] 01/25/2023 09:28:19 Tdap 1 completed Susana Allar null, [facility] 01/25/2023 09:28:19 Pneumococcal conjugate PCV 13 5 completed Susana Allar null, [facility] 01/25/2023 09:28:19 yellow fever live 2 completed Susana Allar null, [facility] 01/25/2023 09:28:19 yellow fever live 1 completed Susana Allar null, [facility] 01/25/2023 09:28:19 zoster live 7 completed Susana Allar null, [facility] 01/25/2023 09:28:19 Influenza, high-dose, trivalent, PF 4 completed Susana Allar null, [facility] 01/25/2023 09:28:19 Influenza, high-dose, trivalent, PF 6 completed Susana Allar null, [facility] 01/25/2023 09:28:19 Influenza, high-dose, trivalent, PF 5 completed Susana Allar null, [facility] 01/25/2023 09:28:19 Influenza, split virus, trivalent, preservative 2 completed Susana Allar null, [facility] 01/25/2023 09:28:19 Influenza, split virus, trivalent, preservative 1 completed Susana Allar null, [facility] 01/25/2023 09:28:19 Influenza, split virus, trivalent, preservative 6 completed Susana Allar null, [facility] 01/25/2023 09:28:19 Influenza, split virus, trivalent, preservative 4 completed Susana Allar null, [facility] 01/25/2023 09:28:19 Influenza, split virus, trivalent, preservative 3 completed Susana Allar null, [facility] 01/25/2023 09:28:19 Influenza, split virus, trivalent, preservative 0 completed Susana Allar null, [facility] 01/25/2023 09:28:19 Influenza, split virus, trivalent, preservative 7 completed Susana Allar null, [facility] 01/25/2023 09:28:19 Influenza, split virus, trivalent, preservative 5 completed Susana Allar null, [facility] 01/25/2023 09:28:19 Td (adult), 5 Lf tetanus toxoid, preservative free, adsorbed 5 completed Susana Allar null, [facility] 01/25/2023 09:28:19 typhoid, ViCPs 2 completed Susana Allar null, [facility] 01/25/2023 09:28:19 typhoid, ViCPs 1 completed Susana Allar null, [facility] 01/25/2023 09:28:19 Hep A-Hep B 2 completed Susana Allar null, [facility] 01/25/2023 09:28:19 Hep A-Hep B 2 completed Susana Allar null, [facility] 01/25/2023 09:28:19 Hep A-Hep B 2 completed Susana Allar null, [facility] 01/25/2023 09:28:19 Past Encounters Encounter ID Performer Location Encounter Start Date Encounter Closed Date Diagnosis/Indication Diagnosis SNOMED-CT Code Diagnosis ICD10 Code Diagnosis Note [id number] [facility] [place] [address] 09/28/2022 16:22:42 10/02/2022 13:32:27 Malignant tumor of prostate [id number] C61 1. Prostate cancer- cT1c - [place] 3+3 = 6 - on expectant management - PSA increased (11.80) - has fluctuated over the years- recheck PSA in November ([facility])- if PSA increases - check Prostate MRI and recommend TRUS bx Lower urin robbin tract symptoms due to benign prostatic hypertrophy 8256439639 9101 N40.1 2. BPH- voiding okay- continue Flomax 0.4 mg daily [id number] [facility] [employer] [facility] [place] [address] 04/26/2023 10:54:45 04/26/2023 12:03:27 Malignant tumor of prostate [id number] C61 1. Prostate cancer- cT1c - [place] 3+3 = 6 - on expectant management - PSA (9.08) - decreased has fluctuated over the years- recheck PSA in September ([facility])(if PSA increases significan t - check Prostate MRI and recommend TRUS bx Lower urin robbin tract symptoms due to benign prostatic hypertrophy [id number] 9101 N40.1 2. BPH- voiding okay- continue Flomax 0.4 mg daily [id number] Louis Cook MD [facility] [employer] [facility] [place] [address] 10/11/2023 09:43:36 10/12/2023 08:25:39 Malignant tumor of prostate [id number] C61 1. Prostate cancer- cT1c - [place] 3+3 = 6 - on expectant management - PSA (10.5) - decreased has fluctuated over the years- Follow-up in 6 months with PSA(if PSA increases significan t - check Prostate MRI and recommend TRUS bx Lower urin robbin tract symptoms due to benign prostatic hypertrophy [id number] 9101 N40.1 2. BPH- voiding okay- continue [...] Name 09/28/2022 1 [place] [id number] Enrike Coleman [id number] Enrike Colemna 04/26/2023 1 [place] [id number] Enrike Coleman [id number] Enrike Coleman 10/11/2023 1 [place] [id number] Enrike Coleman [id number] Enrike Coleman Notes Date Note Type Note [...] underwent MRI bx (10/31/14) of lesion at [facility] - benign. No family H/O prostate [...] 8.30 (06/09/21)- 11.80 (09/15/22) Louis Cook MD [address] [place] [address],[facility] [address], [place], [address], [facility] 09/28/2022 17:22:15 04/26/2023 text/html [...] underwent MRI bx (10/31/14) of lesion at [facility] - benign. No family H/O prostate [...] 11.80 (09/15/22)- 9.08 (04/16/23) Louis Cook MD [address] [place] [address],[facility] [address], [place], [address], [facility] 04/26/2023 11:10:14 10/11/2023 text/html [...] underwent MRI bx (10/31/14) of lesion at [facility] - benign. No family H/O prostate [...] 11.80 (09/15/22)- 9.08 (04/16/23) Louis Cook MD [address] [facility],[address], [place], [address], [facility] 10/11/2023 10:30:45
--- OUTSIDE RECORDS SUMMARY | 2024-04-16 06:30 | XMS_ITS | Clinical Summary ---
Author Organization [facility] Address [address], [place] [address] Care Team Providers Care Manager Decision Support Name Role Phone Unavailable Primary Care Provider [...]
--- OUTSIDE RECORDS SUMMARY | 2024-04-16 06:30 | XMS_ITS | Continuity of Care Document ---
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 [facility], [facility] [address] [place] [address], [facility] [address], [place], [id number], [place]. tel:[phone] Office/Outpa tient Visit,Est, Low Z [facility], [address] [place] [address], [place], [address], [place] tel:[phone] [facility] No Information 3 [address] [place] [address], [id number], [place]. tel:[phone] Referring Provider: Brayden Hart, [facility], [place], [address]. tel:[phone] Z [facility], [address] [place] [address], [facility], [place] tel:[phone] [facility] No Information 0 [address] [place] [address], [id number], [place]. tel:[phone] Referring Provider: Brayden Hart, [facility] Wendy [facility], [place], [address]. tel:[phone] Z [facility], [address] [place] [address], [facility], [place] tel:[phone] [facility] No Information 0 [address] [place] [address], [id number], [place]. tel:[phone] Z [facility], [address] [place] [address], [facility], [place] tel:[phone] [facility] No Information 0 3 [employer]or. [facility], [address] [place] [address], [id number], [place]. tel:[phone] Referring Provider: Brayden Hart, [facility] Wendy [facility], [place], [address]. tel:[phone] Office/Outpa tient Visit,[facility], [facility], [address] [place] [address], [facility], [place] tel:[phone] [facility] LUMBAGO 3 [employer] Ensor. [facility] [place], [address] [place] [address], [address], [id number], [place]. tel:[phone] Referring Provider: Brayden Hart, [place] [address], [place], [address]. tel:[phone] Family History Family Member Type Diagnosis Age At Onset No Information Payers Payer name Insurance type Covered democrat ID Authoriza tion(s) No Information Social History [...]
--- OUTSIDE RECORDS SUMMARY | 2024-04-16 06:30 | XMS_ITS | Clinical Summary ---
Author Organization [facility] Address [place], [place] [address] Care Team Providers Care Neon Sign Installer Name Role Phone Pardeep Baird [facility] Unavailable + Rocael Gamez Unavailable Lindsay Toscano MD Primary Care Provider Hudson Valle MD Unavailable [phone] [phone] Allergies No known active allergies Medications cyanocobalamin [...] Department Care Team Description 04/14/2024 11:20 AM MEDICAL DONATION PROFESSIONAL Office Visit [facility] [address] [place] [address] Lindsay Toscano MD Follow Up (Follow up from 04/13/24/Painful injection site) 04/14/2024 Orders Only [facility] Scanner 1 scan: (1-Ord) [place] [facility], US LOWER EXTREMITY RT NON VASCULAR, 04/14/2024 04/13/2024 3:15 PM MEDICAL DONATION PROFESSIONAL Ancillary Procedure [facility] [address] [place] [address] Arrived 04/13/2024 1:40 PM MEDICAL DONATION PROFESSIONAL Office Visit [facility] [address] [place] [address] Lindsay Toscano MD Derm Problem (Left buttock sore hard/red) 04/13/2024 10:43 AM MEDICAL DONATION PROFESSIONAL - 04/13/2024 11:59 PM MEDICAL DONATION PROFESSIONAL Hospital Encounter [facility] [address] [place] [address] Mayelin Skinner NP 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/2024 Travel 04/04/2024 11:20 AM MEDICAL DONATION PROFESSIONAL Office Visit [facility] [address] [place] [address] Lindsay Toscano MD Hospital F/U (ANW, 03/10/2024 - 03/20/2024, Three Links, 03/20/2024 - 03/31/2024, triple bypass surgery) 04/04/2024 Travel 03/27/2024 Lab Requisition [facility] [phone] Edilma Sutherland NP 03/10/2024 11:56 AM MEDICAL DONATION PROFESSIONAL Anesthesia Event [facility] [address] [place] [address] Nataliya Linares MD Kushins, Stephen Isaac, MD 03/10/2024 10:45 AM MEDICAL DONATION PROFESSIONAL - 03/10/2024 4:53 PM MEDICAL DONATION PROFESSIONAL Surgery [facility] [address] [place] [address] Tonja Redman MD INTRAOP FANG PERFORMED BY DR. LINARES, TAKEDOWN OF TORRES, ENDOSCOPIC VEIN HARVEST OF LEFT SAPHENOUS VEIN, BYPASS CORONARY ARTERY X3, LEFT ATRIAL APPENDAGE LIGATION WITH ATRICLIP SIZE 40MM, PLACEMENT OF TEMPORARY VENTRICULAR PACING WIRES. 03/10/2024 9:21 AM MEDICAL DONATION PROFESSIONAL - 03/20/2024 12:15 PM MEDICAL DONATION PROFESSIONAL Hospital Encounter [facility] [address] [place] [address] Tonja Redman MD S/P CABG x 3 (Primary Dx); Type 2 diabetes mellitus without complication, without long-term current use of insulin (HC) Discharge Disposition: Shelter Facility 03/10/2024 Travel 03/03/2024 8:25 AM MEDICAL DONATION PROFESSIONAL Office Visit [facility] [address] [place] [address] Lindsay Toscano MD Preoperative Exam (DOS: 03/10/2024, BYPASS CORONARY ARTERY W/EVH, LEFT ATRIAL APPENDAGE LIGATION, ANW, Dr. Tonja Redman) 03/03/2024 Travel 03/02/2024 11:30 AM MEDICAL DONATION PROFESSIONAL Phone Office Visit [facility] [address] [facility] [address] [place] [phone] Olamide Randall PA Education (Pre-op Open Heart Surgery Education/) 02/27/2024 Travel 02/24/2024 Orders Only [facility] Scanner 1 scan: (1-Ord) [facility], CHEST 2 V, 02/24/2024 02/24/2024 Telephone [facility] [address] [place] [address] Hever Bill MD C5 TELEPHONE CONSULT 02/24/2024 Orders Only [facility] Scanner 1 scan: (1-Ord) ANA LILIA, CT HEAD/BRAIN WO CON, 02/24/2024 02/24/2024 Refill [facility] [address] [place] [address] Lindsay Toscano MD Refill Request (Eliquis) 02/18/2024 8:35 AM MEDICAL DONATION PROFESSIONAL - 02/18/2024 11:59 PM MEDICAL DONATION PROFESSIONAL Hospital Encounter [facility] [address] [place] [address] Seymour Collazo PA Leistner, Joseph S, ShavonT. (ARRT) Coronary artery disease, unspecified vessel or lesion type, unspecified whether angina present, unspecified whether pokagon or transplanted heart; Shortness of breath; Other specified symptoms and signs involving the circulatory and respiratory systems 02/18/2024 Travel 02/16/2024 Refill [facility] [address] [place] [address] Brayden Velázquez MD Refill Request (Prednisone) 02/16/2024 Telephone [facility] [address] [place] [address] Lindsay Toscano MD Form 02/16/[address] [place] [address] Jose, JEFFERY Briggs Follow Up (post-angiogram, inquire about CV surgery appointment); Medication Management (start Imdur) 02/15/2024 1:40 PM MEDICAL DONATION PROFESSIONAL Office Visit [facility] [address] [place] [address] Lindsay Toscano MD Post Procedure (ANW, 02/11/2024, angiogram ); Suture Removal (Stitches in lower left leg) 02/15/2024 Travel 02/14/2024 Orders Only [facility] [address] [place] [address] Seymour Collazo PA Pre-Op Imaging 02/11/2024 10:34 AM MEDICAL DONATION PROFESSIONAL - 02/11/2024 6:51 PM MEDICAL DONATION PROFESSIONAL Hospital Encounter [facility] [address] [place] [address] Aba Viramontes MD ASHD (arteriosclerotic heart disease) (Primary Dx); Cardiovascular symptoms; Exertional fatigue and dyspnea Discharge Disposition: Home Self Care 02/11/2024 Travel 02/07/2024 2:05 PM MEDICAL DONATION PROFESSIONAL Office Visit [facility] [address] [place] [address] Lindsay Toscano MD Follow Up 02/06/2024 Travel 02/02/2024 9:00 AM MEDICAL DONATION PROFESSIONAL Office Visit [facility] [address] [place] [address] Constance Colmenares MD Derm Problem 02/02/2024 Travel 02/01/2024 11:00 AM MEDICAL DONATION PROFESSIONAL Orders Only Count Includes [facility] [address] [facility] [address] [place] [address] Lab 02/01/2024 10:00 AM MEDICAL DONATION PROFESSIONAL Office Visit [facility] [address] [facility] [address] [place] [address] Melanie Isbell PA Follow Up (2 WEEK F/U - LABS 01/27 DX: HFrEF CT scan yestereday. /Pt states feeling well today, mentioned no current cardiac symptoms. /Pt doesn't know his meds I take what's in my chart./) 01/31/2024 10:55 AM MEDICAL DONATION PROFESSIONAL - 01/31/2024 11:59 PM MEDICAL DONATION PROFESSIONAL Hospital Encounter [facility] [address] [place] [address] Melanie Isbell PA Heart failure, unspecified HF chronicity, unspecified heart failure type (HC); Abnormal stress test; Abnormal findings on diagnostic imaging of heart/coronary circulation 01/31/2024 Travel 01/28/2024 1:30 PM MEDICAL DONATION PROFESSIONAL Orders Only [facility] [address] [place] [address] Lab, [place] [facility] 01/27/2024 Travel 01/24/2024 Telephone [facility] [address] [place] [address] Constance Colmenares MD Questions (appointment ) 01/21/2024 Telephone [facility] [address] [place], [place] [address] Melanie Isbell PA 01/21/2024 Telephone [facility] [address] [place] [address] Jose, JEFFERY Briggs Imaging (CTA) 01/21/2024 Orders Only [facility] [address] [place], [place] [address] Case, JEFFERY Briggs <No scans attached> 01/19/2024 Orders Only [facility] Scanner 1 scan: (1-Ord) [facility], 01/19/2024 01/17/2024 3:00 PM MEDICAL DONATION PROFESSIONAL Ancillary Procedure [facility] [address] [place] [address] 01/17/2024 1:00 PM MEDICAL DONATION PROFESSIONAL Office Visit [facility] [address] [place] [address] Wilian Valdez DO Consult (Back Pain) 01/17/2024 Travel from Last 3 Months Immunizations Name [...] on file Legal Sex Male 5:25 AM MEDICAL DONATION PROFESSIONAL Gender Identity Not on file Sexual Orientation Not on file Obstetrics History Last Filed Vital Signs Vital Sign Reading Time Taken Comments Blood Pressure 113/72 04/14/2024 11:09 AM MEDICAL DONATION PROFESSIONAL Pulse 89 04/14/2024 11:09 AM MEDICAL DONATION PROFESSIONAL Temperature 36.8 C (98.2 F) 03/20/2024 7:48 AM MEDICAL DONATION PROFESSIONAL Respiratory Rate 20 04/13/2024 3:00 PM MEDICAL DONATION PROFESSIONAL Oxygen Saturation 99% 04/14/2024 11:09 AM MEDICAL DONATION PROFESSIONAL Inhaled Oxygen Concentration - - Weight 99.3 kg (219 lb) 04/13/2024 1:29 PM MEDICAL DONATION PROFESSIONAL Height 172.7 cm (5' 8) 04/13/2024 3:00 PM MEDICAL DONATION PROFESSIONAL Body Mass Index 34.3 03/10/2024 10:42 AM MEDICAL DONATION PROFESSIONAL Plan of Treatment Upcoming Encounters Date Type Department Care Team (Late st Contact Info) Description 04/17/2024 2:05 PM MEDICAL DONATION PROFESSIONAL Office Visit [facility] [address] [place] [address] Lindsay Toscano MD [address] [place] [address] 04/19/2024 10:00 AM MEDICAL DONATION PROFESSIONAL Appointment [address] [address] 04/21/2024 10:00 AM MEDICAL DONATION PROFESSIONAL Appointment [address] [address] 04/24/2024 10:00 AM MEDICAL DONATION PROFESSIONAL Appointment [address] [address] 04/25/2024 1:45 PM MEDICAL DONATION PROFESSIONAL Appointment [facility] [address] [place] [address] Hillary Persaud, OT [address] [place] [address] 04/26/2024 9:00 AM MEDICAL DONATION PROFESSIONAL Office Visit [facility] [address] [place] [address] [place] [address] [place] [address] 04/26/2024 10:00 AM MEDICAL DONATION PROFESSIONAL Appointment [facility] [address] [place] [address] 04/28/2024 10:00 AM MEDICAL DONATION PROFESSIONAL Appointment [facility] [address] [place] [address] 05/01/2024 10:00 AM MEDICAL DONATION PROFESSIONAL Appointment [address] [address] 05/03/2024 10:00 AM MEDICAL DONATION PROFESSIONAL Appointment [facility] [address] [facility] [place] [address] 05/05/2024 10:00 AM MEDICAL DONATION PROFESSIONAL Appointment [facility] [address] [facility] [place] [address] 05/08/2024 10:00 AM CDT Appointment [facility] [address] [facility] [place] [address] 05/10/2024 10:00 AM CDT Appointment [facility] [address] [place] [address] 05/12/2024 10:00 AM CDT Appointment [facility] [address] [facility] [place] [address] 05/15/2024 10:00 AM CDT Appointment [facility] [address] [place] [address] 05/17/2024 10:00 AM CDT Appointment [facility] [address] [place] [address] 05/19/2024 10:00 AM CDT Appointment [facility] [address] [place] [address] 05/22/2024 10:00 AM CDT Appointment [facility] [address] [place] [address] 05/24/2024 10:00 AM CDT Appointment [facility] [address] [place] [address] 05/26/2024 10:00 AM CDT Appointment [facility] [address] [place] [address] 05/29/2024 10:00 AM CDT Appointment [facility] [address] [place] [address] 05/31/2024 10:00 AM CDT Appointment [facility] [address] [place] [address] 06/02/2024 Cardiac Device Check [facility] [phone] 06/02/2024 8:30 AM CDT Appointment [facility] [address] [place] [address] 06/02/2024 10:30 AM CDT Office Visit [facility] [address] [place] [address] Lindsay Toscano MD [address] [place] [address] 06/05/2024 10:00 AM CDT Appointment [facility] [address] [place] [address] 06/07/2024 10:00 AM CDT Appointment [address] [address] 06/09/2024 10:00 AM CDT Appointment [facility] [address] [place] [address] 06/12/2024 10:00 AM CDT Appointment [address] [address] 06/14/2024 10:00 AM CDT Appointment [address] [address] 06/16/2024 10:00 AM CDT Appointment [facility] [address] [place] [address] 06/19/2024 10:00 AM CDT Appointment [address] [address] 06/21/2024 10:00 AM CDT Appointment [facility] [address] [place] [address] 06/23/2024 10:00 AM CDT Appointment [facility] [address] [place] [address] 06/26/2024 10:00 AM CDT Appointment [facility] 200 [facility] [place] [address] 06/28/2024 10:00 AM CDT Appointment [facility] [address] [facility] [place] [address] 06/30/2024 10:00 AM CDT Appointment [facility] [address] [facility] [place] [address] 07/03/2024 10:00 AM CDT Appointment [facility] [address] [facility] [place] [address] 07/05/2024 10:00 AM CDT Appointment [facility] [address] [facility] [place] [address] 07/07/2024 10:00 AM CDT Appointment [facility] [address] [place] [address] Health Maintenance Due Date Last Done Comments [...] history exists Medical Devices Implanted Type Area Stitching Machine Setter Device Identifier Shelf Expiration Date Model / Serial / Lot Occluder Meghan 40mm Atriclip Flex V Exclusion Sys - [id number] Implanted:Qty: 1 on 03/10/2024 by Tonja Redman MD at [facility] N/A: [employer] 12/30/2024 [id number] / / [id number] Description:AtriCure AtriCli p . SIZE: 40MM. REF: [id number]. LOT: [id number]. Implanted on 03/10/[address] Redman at [facility]. Procedures Procedure Name Priority Date/Time Associated Diagnosis Comments SCAN-ULTRASOUND REPORT 12:00 AM MEDICAL DONATION PROFESSIONAL US LOWER EXTREMITY SOFT TISSUE LEFT STAT 04/13/2024 2:49 PM MEDICAL DONATION PROFESSIONAL Leg swelling SCAN-CARDIAC REHABILITATION 04/13/2024 12:04 PM MEDICAL DONATION PROFESSIONAL CBC WITH AUTO DIFFERENTIAL Routine 03/28/2024 8:03 AM MEDICAL DONATION PROFESSIONAL Anemia, unspecified CBC WITH AUTO DIFFERENTIAL Routine 03/28/2024 8:03 AM MEDICAL DONATION PROFESSIONAL Anemia, unspecified SCAN-CARDIAC STRIP 03/20/2024 8:42 AM MEDICAL DONATION PROFESSIONAL GLUCOSE METER Timed 03/20/2024 7:49 AM MEDICAL DONATION PROFESSIONAL HEMOGLOBIN Early AM 03/20/2024 6:42 AM MEDICAL DONATION PROFESSIONAL BASIC METABOLIC PANEL Early AM 03/20/2024 6:42 AM MEDICAL DONATION PROFESSIONAL SCAN-CARDIAC STRIP 03/20/2024 1:16 AM MEDICAL DONATION PROFESSIONAL GLUCOSE METER Timed 03/19/2024 9:32 PM MEDICAL DONATION PROFESSIONAL GLUCOSE METER Timed 03/19/2024 5:23 PM MEDICAL DONATION PROFESSIONAL SCAN-CARDIAC STRIP 03/19/2024 12:24 PM MEDICAL DONATION PROFESSIONAL GLUCOSE METER Timed 03/19/2024 11:31 AM MEDICAL DONATION PROFESSIONAL GLUCOSE METER Timed 03/19/2024 8:26 AM MEDICAL DONATION PROFESSIONAL HEMOGLOBIN Early AM 03/19/2024 5:52 AM MEDICAL DONATION PROFESSIONAL SCAN-CARDIAC STRIP 03/19/2024 4:13 AM MEDICAL DONATION PROFESSIONAL POTASSIUM Timed 03/18/2024 7:32 PM MEDICAL DONATION PROFESSIONAL GLUCOSE METER Timed 03/18/2024 5:37 PM MEDICAL DONATION PROFESSIONAL SCAN-CARDIAC STRIP 03/18/2024 4:00 PM MEDICAL DONATION PROFESSIONAL GLUCOSE METER Timed 03/18/2024 7:27 AM MEDICAL DONATION PROFESSIONAL HEMOGLOBIN Early AM 03/18/2024 6:33 AM MEDICAL DONATION PROFESSIONAL BASIC METABOLIC PANEL Early AM 03/18/2024 6:33 AM MEDICAL DONATION PROFESSIONAL GLUCOSE METER Timed 03/17/2024 5:32 PM MEDICAL DONATION PROFESSIONAL SCAN-CARDIAC STRIP 03/17/2024 3:37 PM MEDICAL DONATION PROFESSIONAL POTASSIUM Timed 03/17/2024 11:49 AM MEDICAL DONATION PROFESSIONAL HEMOGLOBIN Today 03/17/2024 11:49 AM MEDICAL DONATION PROFESSIONAL SCAN-CARDIAC STRIP 03/17/2024 9:40 AM MEDICAL DONATION PROFESSIONAL HEMOGLOBIN Early AM 03/17/2024 6:56 AM MEDICAL DONATION PROFESSIONAL BASIC METABOLIC PANEL Early AM 03/17/2024 6:56 AM MEDICAL DONATION PROFESSIONAL GLUCOSE METER Timed 03/16/2024 9:17 PM MEDICAL DONATION PROFESSIONAL GLUCOSE METER Timed 03/16/2024 4:17 PM MEDICAL DONATION PROFESSIONAL GLUCOSE METER Timed 03/16/2024 12:35 PM MEDICAL DONATION PROFESSIONAL SCAN-CARDIAC STRIP 03/16/2024 9:18 AM MEDICAL DONATION PROFESSIONAL GLUCOSE METER Timed 03/16/2024 7:43 AM MEDICAL DONATION PROFESSIONAL MAGNESIUM Early AM 03/16/2024 7:05 AM MEDICAL DONATION PROFESSIONAL BASIC METABOLIC PANEL Early AM 03/16/2024 7:05 AM MEDICAL DONATION PROFESSIONAL HEMOGLOBIN Early AM 03/16/2024 7:04 AM MEDICAL DONATION PROFESSIONAL SCAN-CARDIAC STRIP 03/16/2024 1:39 AM MEDICAL DONATION PROFESSIONAL SCAN-CARDIAC STRIP 03/15/2024 10:18 PM MEDICAL DONATION PROFESSIONAL GLUCOSE METER Timed 03/15/2024 9:11 PM MEDICAL DONATION PROFESSIONAL GLUCOSE METER Timed 03/15/2024 4:39 PM MEDICAL DONATION PROFESSIONAL POTASSIUM Timed 03/15/2024 2:58 PM MEDICAL DONATION PROFESSIONAL GLUCOSE METER Timed 03/15/2024 11:13 AM MEDICAL DONATION PROFESSIONAL GLUCOSE METER Timed 03/15/2024 7:42 AM MEDICAL DONATION PROFESSIONAL BASIC METABOLIC PANEL Early AM 03/15/2024 6:15 AM MEDICAL DONATION PROFESSIONAL CBC W PLT NO DIFF Early AM 03/15/2024 6:15 AM MEDICAL DONATION PROFESSIONAL MAGNESIUM Early AM 03/15/2024 6:15 AM MEDICAL DONATION PROFESSIONAL SCAN-CARDIAC STRIP 03/15/2024 12:37 AM MEDICAL DONATION PROFESSIONAL GLUCOSE METER Timed 03/14/2024 8:56 PM MEDICAL DONATION PROFESSIONAL GLUCOSE METER Timed 03/14/2024 5:27 PM MEDICAL DONATION PROFESSIONAL SCAN-CARDIAC STRIP 03/14/2024 3:10 PM MEDICAL DONATION PROFESSIONAL GLUCOSE METER Timed 03/14/2024 12:43 PM MEDICAL DONATION PROFESSIONAL GLUCOSE METER Timed 03/14/2024 9:29 AM MEDICAL DONATION PROFESSIONAL POTASSIUM Early AM 03/14/2024 6:26 AM MEDICAL DONATION PROFESSIONAL MAGNESIUM Early AM 03/14/2024 6:26 AM MEDICAL DONATION PROFESSIONAL SCAN-CARDIAC STRIP 03/13/2024 10:58 PM MEDICAL DONATION PROFESSIONAL GLUCOSE METER Timed 03/13/2024 9:21 PM MEDICAL DONATION PROFESSIONAL GLUCOSE METER Timed 03/13/2024 5:18 PM MEDICAL DONATION PROFESSIONAL EKG 12 LEAD STAT 03/13/2024 1:09 PM MEDICAL DONATION PROFESSIONAL GLUCOSE METER Timed 03/13/2024 11:58 AM MEDICAL DONATION PROFESSIONAL SCAN-CARDIAC STRIP 03/13/2024 9:12 AM MEDICAL DONATION PROFESSIONAL PHOSPHORUS Early AM 03/13/2024 8:22 AM MEDICAL DONATION PROFESSIONAL MAGNESIUM Early AM 03/13/2024 8:22 AM MEDICAL DONATION PROFESSIONAL CALCIUM [facility]ONIZED [facility] DRAW ONLY Early AM 03/13/2024 8:22 AM MEDICAL DONATION PROFESSIONAL BASIC METABOLIC PANEL Early AM 03/13/2024 8:22 AM MEDICAL DONATION PROFESSIONAL CBC W PLT NO DIFF Early AM 03/13/2024 8:22 AM MEDICAL DONATION PROFESSIONAL PROTIME-INR Early AM 03/13/2024 8:22 AM MEDICAL DONATION PROFESSIONAL XR CHEST 1 VIEW PORTABLE Routine 025 8:13 AM MEDICAL DONATION PROFESSIONAL GLUCOSE METER Timed 03/13/2024 8:04 AM MEDICAL DONATION PROFESSIONAL SCAN-CARDIAC STRIP 03/13/2024 1:29 AM MEDICAL DONATION PROFESSIONAL GLUCOSE METER Timed 03/12/2024 10:11 PM MEDICAL DONATION PROFESSIONAL GLUCOSE METER Timed 03/12/2024 5:31 PM MEDICAL DONATION PROFESSIONAL [facility] DRAW ONLY STAT 03/12/2024 3:56 PM MEDICAL DONATION PROFESSIONAL SODIUM STAT 03/12/2024 3:56 PM MEDICAL DONATION PROFESSIONAL HEMOGLOBIN STAT 03/12/2024 3:56 PM MEDICAL DONATION PROFESSIONAL XR CHEST 1 VIEW PORTABLE STAT 025 12:58 PM MEDICAL DONATION PROFESSIONAL GLUCOSE METER Timed 03/12/2024 12:44 PM MEDICAL DONATION PROFESSIONAL URINALYSIS MICROSCOPIC Timed 11:35 AM MEDICAL DONATION PROFESSIONAL UA W/ SEDIMENT EXAM REFLEXED PER CRITERIA Today 03/12/2024 11:35 AM MEDICAL DONATION PROFESSIONAL TRANSFUSE RBC (NURSE COMMUNICATION ORDER) STAT 03/12/2024 11:00 AM MEDICAL DONATION PROFESSIONAL RBC W/O TYPE & SCREEN STAT 03/12/2024 10:34 AM MEDICAL DONATION PROFESSIONAL XR CHEST 1 VIEW PORTABLE STAT 025 10:12 AM MEDICAL DONATION PROFESSIONAL GLUCOSE METER Timed 03/12/2024 9:02 AM MEDICAL DONATION PROFESSIONAL O2 SATURATION,MEASURED Early AM 3:35 AM MEDICAL DONATION PROFESSIONAL LACTATE ARTERIAL Early AM 03/12/2024 3:35 AM MEDICAL DONATION PROFESSIONAL CBC W PLT NO DIFF Early AM 03/12/2024 3:35 AM MEDICAL DONATION PROFESSIONAL [facility] DRAW ONLY Early AM 03/12/2024 3:35 AM MEDICAL DONATION PROFESSIONAL COMP METABOLIC PANEL Early AM 03/12/2024 3:35 AM MEDICAL DONATION PROFESSIONAL AMMONIA Early AM 03/12/2024 3:35 AM MEDICAL DONATION PROFESSIONAL MAGNESIUM Early AM 03/12/2024 3:35 AM MEDICAL DONATION PROFESSIONAL PROTIME-INR Early AM 03/12/2024 3:35 AM MEDICAL DONATION PROFESSIONAL GLUCOSE METER Timed 03/11/2024 10:09 PM MEDICAL DONATION PROFESSIONAL GLUCOSE METER Timed 03/11/2024 5:56 PM MEDICAL DONATION PROFESSIONAL GLUCOSE METER Timed 03/11/2024 4:08 PM MEDICAL DONATION PROFESSIONAL O2 SATURATION,MEASURED STAT 3:15 PM MEDICAL DONATION PROFESSIONAL LACTATE ARTERIAL STAT 03/11/2024 3:15 PM MEDICAL DONATION PROFESSIONAL GLUCOSE METER Timed 03/11/2024 1:23 PM MEDICAL DONATION PROFESSIONAL EKG 12 LEAD Routine 03/11/2024 1:10 PM MEDICAL DONATION PROFESSIONAL GLUCOSE METER Timed 03/11/2024 11:59 AM MEDICAL DONATION PROFESSIONAL [facility] DRAW ONLY Today 03/11/2024 11:58 AM MEDICAL DONATION PROFESSIONAL AMMONIA STAT 03/11/2024 11:58 AM MEDICAL DONATION PROFESSIONAL POTASSIUM Timed 03/11/2024 10:31 AM MEDICAL DONATION PROFESSIONAL GLUCOSE METER Timed 03/11/2024 10:28 AM MEDICAL DONATION PROFESSIONAL EKG 12 LEAD Early AM 03/11/2024 8:02 AM MEDICAL DONATION PROFESSIONAL GLUCOSE METER Timed 03/11/2024 6:17 AM MEDICAL DONATION PROFESSIONAL GLUCOSE METER Timed 03/11/2024 4:56 AM MEDICAL DONATION PROFESSIONAL XR CHEST 1 VIEW PORTABLE Routine 025 4:21 AM MEDICAL DONATION PROFESSIONAL GLUCOSE METER Timed 03/11/2024 3:55 AM MEDICAL DONATION PROFESSIONAL LACTATE ARTERIAL Early AM 03/11/2024 3:55 AM MEDICAL DONATION PROFESSIONAL PLATELET COUNT Early AM 03/11/2024 3:55 AM MEDICAL DONATION PROFESSIONAL MAGNESIUM Early AM 03/11/2024 3:55 AM MEDICAL DONATION PROFESSIONAL [facility] DRAW ONLY Early AM 03/11/2024 3:55 AM MEDICAL DONATION PROFESSIONAL PROTIME-INR Early AM 03/11/2024 3:55 AM MEDICAL DONATION PROFESSIONAL HEMOGLOBIN Early AM 03/11/2024 3:55 AM MEDICAL DONATION PROFESSIONAL BASIC METABOLIC PANEL Early AM 03/11/2024 3:55 AM MEDICAL DONATION PROFESSIONAL GLUCOSE METER Timed 03/11/2024 2:01 AM MEDICAL DONATION PROFESSIONAL GLUCOSE METER Timed 03/11/2024 12:53 AM MEDICAL DONATION PROFESSIONAL ARTERIAL BLOOD GAS STAT 03/11/2024 12:32 AM MEDICAL DONATION PROFESSIONAL GLUCOSE METER Timed 03/10/2024 11:58 PM MEDICAL DONATION PROFESSIONAL GLUCOSE METER Timed 03/10/2024 11:05 PM MEDICAL DONATION PROFESSIONAL GLUCOSE METER Timed 03/10/2024 9:21 PM MEDICAL DONATION PROFESSIONAL GLUCOSE METER Timed 03/10/2024 8:32 PM MEDICAL DONATION PROFESSIONAL GLUCOSE METER Timed 03/10/2024 7:26 PM MEDICAL DONATION PROFESSIONAL EKG 12 LEAD STAT 03/10/2024 7:08 PM MEDICAL DONATION PROFESSIONAL GLUCOSE METER Timed 03/10/2024 6:47 PM MEDICAL DONATION PROFESSIONAL XR CHEST 1 VIEW PORTABLE STAT 025 6:30 PM MEDICAL DONATION PROFESSIONAL CREATININE DAVID 03/10/2024 5:47 PM MEDICAL DONATION PROFESSIONAL CALCIUM IONIZED [facility]OSPITAL DRAW ONLY DAVID 03/10/2024 5:47 PM MEDICAL DONATION PROFESSIONAL FIBRINOGEN,QUANTITATIVE STAT 03/10/19 25 5:47 PM MEDICAL DONATION PROFESSIONAL THROMBIN TIME STAT 03/10/2024 5:47 PM MEDICAL DONATION PROFESSIONAL PROTIME-INR STAT 03/10/2024 5:47 PM MEDICAL DONATION PROFESSIONAL APTT STAT 03/10/2024 5:47 PM MEDICAL DONATION PROFESSIONAL PLATELET COUNT STAT 03/10/2024 5:47 PM MEDICAL DONATION PROFESSIONAL MAGNESIUM STAT 03/10/2024 5:47 PM MEDICAL DONATION PROFESSIONAL POTASSIUM STAT 03/10/2024 5:47 PM MEDICAL DONATION PROFESSIONAL HEMOGLOBIN STAT 03/10/2024 5:47 PM MEDICAL DONATION PROFESSIONAL ARTERIAL BLOOD GAS STAT 03/10/2024 5:47 PM MEDICAL DONATION PROFESSIONAL GLUCOSE METER Timed 03/10/2024 5:46 PM MEDICAL DONATION PROFESSIONAL TRANSFUSE CRYOPRECIPITATE (NURSE COMMUNICATION ORDER) Today 03/10/2024 4:56 PM MEDICAL DONATION PROFESSIONAL TRANSFUSE PLT (NURSE COMMUNICATION ORDER) Today 03/10/2024 4:32 PM MEDICAL DONATION PROFESSIONAL TRANSFUSE PLT (NURSE COMMUNICATION ORDER) Today 03/10/2024 4:32 PM MEDICAL DONATION PROFESSIONAL TRANSFUSE PLASMA (NURSE COMMUNICATION ORDER) Today 03/10/2024 4:29 PM MEDICAL DONATION PROFESSIONAL PLATELET ORDER STAT 03/10/2024 4:18 PM MEDICAL DONATION PROFESSIONAL PLATELET ORDER STAT 03/10/2024 4:18 PM MEDICAL DONATION PROFESSIONAL PLASMA ORDER STAT 03/10/2024 4:18 PM MEDICAL DONATION PROFESSIONAL CRYOPRECIPITATE ORDER STAT 03/10/2024 4:18 PM MEDICAL DONATION PROFESSIONAL CRYOPRECIPITATE EA UNIT STAT 03/10/19 4:15 PM MEDICAL DONATION PROFESSIONAL CRYOPRECIPITATE EA UNIT STAT 03/10/19 4:15 PM MEDICAL DONATION PROFESSIONAL PLATELET EA UNIT STAT 03/10/2024 4:15 PM MEDICAL DONATION PROFESSIONAL PLATELET EA UNIT STAT 03/10/2024 4:15 PM MEDICAL DONATION PROFESSIONAL PLASMA SNGL DON FFPEA UNIT STAT 03/10/2024 4:15 PM MEDICAL DONATION PROFESSIONAL PLASMA SNGL DON FFPEA UNIT STAT 03/10/2024 4:15 PM MEDICAL DONATION PROFESSIONAL TRANSFUSE RBC (NURSE COMMUNICATION ORDER) Today 03/10/2024 3:46 PM MEDICAL DONATION PROFESSIONAL CARDIAC THROMBOELASTOGRAPHY STAT 03/10/2024 3:35 PM MEDICAL DONATION PROFESSIONAL FIBRINOGEN,QUANTITATIVE STAT 03/10/19 3:35 PM MEDICAL DONATION PROFESSIONAL PLATELET COUNT STAT 03/10/2024 3:35 PM MEDICAL DONATION PROFESSIONAL RED BLOOD CELLS EA UNIT STAT 03/10/19 3:30 PM MEDICAL DONATION PROFESSIONAL RED BLOOD CELLS EA UNIT STAT 03/10/19 3:30 PM MEDICAL DONATION PROFESSIONAL RBC W/O TYPE & SCREEN STAT 03/10/2024 3:27 PM MEDICAL DONATION PROFESSIONAL FANG Routine 03/10/2024 3:10 PM MEDICAL DONATION PROFESSIONAL HCHG CATH INFUSION PR70 Routine 03/10/19 3:10 PM MEDICAL DONATION PROFESSIONAL HCHG KIT PR5 Routine 03/10/2024 3:10 PM MEDICAL DONATION PROFESSIONAL AHC AN INTRODUCER 2 LUMEN PERFORMABLE Routine 03/10/2024 3:10 PM MEDICAL DONATION PROFESSIONAL HCHG DRSG PR1 Routine 03/10/2024 3:10 PM MEDICAL DONATION PROFESSIONAL HCHG DRSG PR5 Routine 03/10/2024 3:10 PM MEDICAL DONATION PROFESSIONAL HCHG TUBING PR5 Routine 03/10/2024 3:10 PM MEDICAL DONATION PROFESSIONAL HC KIT MONITORING PR5 Routine 03/10/19 3:10 PM MEDICAL DONATION PROFESSIONAL [facility]G ADPTR PR1 Routine 03/10/2024 3:10 PM MEDICAL DONATION PROFESSIONAL [facility]G CATH INFUSION PR30 Routine 03/10/19 25 3:10 PM MEDICAL DONATION PROFESSIONAL HCHG TUBING PR5 Routine 03/10/2024 3:10 PM MEDICAL DONATION PROFESSIONAL [facility]G ANES US GUIDE FOR VASC ACCESS Routine 03/10/2024 3:10 PM MEDICAL DONATION PROFESSIONAL HCHG STOPCOCK PR5 Routine 03/10/2024 3:10 PM MEDICAL DONATION PROFESSIONAL CVC TRIPLE LUMEN Routine 03/10/2024 3:10 PM MEDICAL DONATION PROFESSIONAL HCHG KIT PR5 Routine 03/10/2024 3:09 PM MEDICAL DONATION PROFESSIONAL HCHG DRSG PR5 Routine 03/10/2024 3:09 PM MEDICAL DONATION PROFESSIONAL HCHG DRSG PR1 Routine 03/10/2024 3:09 PM MEDICAL DONATION PROFESSIONAL HCHG TUBING PR20 Routine 03/10/2024 3:09 PM MEDICAL DONATION PROFESSIONAL HCHG TUBING PR1 Routine 03/10/2024 3:09 PM MEDICAL DONATION PROFESSIONAL [facility]G ANES ARTERIAL CATH FOR SAMPLE MONITOR TRANS Routine 03/10/2024 3:09 PM MEDICAL DONATION PROFESSIONAL HCHG ANES US GUIDE FOR VASC ACCESS Routine 03/10/2024 3:09 PM MEDICAL DONATION PROFESSIONAL HCHG CATH PR5 Routine 03/10/2024 3:09 PM MEDICAL DONATION PROFESSIONAL ECHO FANG INTRAOPERATIVE Routine 03/10/19 2:42 PM MEDICAL DONATION PROFESSIONAL ENDOTRACHEAL TUBE Routine 03/10/2024 1:18 PM MEDICAL DONATION PROFESSIONAL ENDOTRACHEAL TUBE Routine 03/10/2024 1:18 PM MEDICAL DONATION PROFESSIONAL BYPASS CORONARY ARTERY 01 2024 11:31 AM MEDICAL DONATION PROFESSIONAL CAD Case Notes BYPASS CORONARY ARTERY W/EVH, LEFT ATRIAL APPENDAGE LIGATION TYPE & SCREEN Preop 03/10/2024 10:41 AM MEDICAL DONATION PROFESSIONAL PROTIME-INR Preop 03/10/2024 10:41 AM MEDICAL DONATION PROFESSIONAL CBC W PLT NO DIFF Preop 03/10/2024 10:41 AM MEDICAL DONATION PROFESSIONAL GLUCOSE, FASTING Preop 03/10/2024 10:41 AM MEDICAL DONATION PROFESSIONAL EXTRA TUBE GOLD/SST Today 03/10/2024 10:40 AM MEDICAL DONATION PROFESSIONAL BEDSIDE US STUDY ARCHIVE Routine 025 10:06 AM MEDICAL DONATION PROFESSIONAL SCAN-OPERATIVE/PROCEDURE REPORT 03/10/2024 12:00 AM MEDICAL DONATION PROFESSIONAL HEMOGLOBIN A1C MONITORING (POCT) Routine 03/03/2024 8:51 AM MEDICAL DONATION PROFESSIONAL Type 2 diabetes mellitus without complication, without long-term current use of insulin (HC) CBC W PLT NO DIFF Routine 03/03/2024 8:50 AM MEDICAL DONATION PROFESSIONAL Preop examination BASIC METABOLIC PANEL Routine 03/03/2024 8:50 AM MEDICAL DONATION PROFESSIONAL Preop examination SCAN-RADIOLOGY REPORT 02/24/2024 12:00 AM MEDICAL DONATION PROFESSIONAL SCAN-CT INTERPRETATION 12:00 AM MEDICAL DONATION PROFESSIONAL US CAROTID DUPLEX BILATERAL STAT 02/18/2024 9:29 AM MEDICAL DONATION PROFESSIONAL Coronary artery disease, unspecified vessel or lesion type, unspecified whether angina present, unspecified whether pokagon or transplanted heart Other specified symptoms and signs involving the circulatory and respiratory systems US VEIN MAPPING LOWER EXTREMITY BILATERAL STAT 02/18/2024 9:29 AM MEDICAL DONATION PROFESSIONAL Coronary artery disease, unspecified vessel or lesion type, unspecified whether angina present, unspecified whether pokagon or transplanted heart Shortness of breath BASIC METABOLIC PANEL Routine 02/15/2024 2:17 PM MEDICAL DONATION PROFESSIONAL HFrEF (heart failure with reduced ejection fraction) (HC) GLUCOSE METER Timed 02/11/2024 4:04 PM MEDICAL DONATION PROFESSIONAL CVL CORONARY ANGIOGRAM POSS PCI Routine 02/11/2024 2:21 PM MEDICAL DONATION PROFESSIONAL Cardiovascular symptoms EKG 12 LEAD DAVID 02/11/2024 12:17 PM MEDICAL DONATION PROFESSIONAL CBC W PLT NO DIFF DAVID 02/11/2024 12:08 PM MEDICAL DONATION PROFESSIONAL BASIC METABOLIC PANEL DAVID 02/11/2024 12:08 PM MEDICAL DONATION PROFESSIONAL PATH TISSUE EXAM Routine 02/02/2024 9:50 AM MEDICAL DONATION PROFESSIONAL Rash and other nonspecific skin eruption AST (SGOT) Routine 02/01/2024 11:44 AM MEDICAL DONATION PROFESSIONAL HFrEF (heart failure with reduced ejection fraction) (HC) Abnormal cardiac CT angiography SOB (shortness of breath) ALT (SGPT) Routine 02/01/2024 11:44 AM MEDICAL DONATION PROFESSIONAL HFrEF (heart failure with reduced ejection fraction) (HC) Abnormal cardiac CT angiography SOB (shortness of breath) CBC W PLT NO DIFF Routine 02/01/2024 11:44 AM MEDICAL DONATION PROFESSIONAL HFrEF (heart failure with reduced ejection fraction) (HC) Abnormal cardiac CT angiography SOB (shortness of breath) LIPID PANEL W REFLEX MEASURED LDL Routine 02/01/2024 11:44 AM MEDICAL DONATION PROFESSIONAL HFrEF (heart failure with reduced ejection fraction) (HC) Abnormal cardiac CT angiography SOB (shortness of breath) CTA FRACTIONAL FLOW RESERVE DAVID 01/31/2024 12:27 PM MEDICAL DONATION PROFESSIONAL Heart failure, unspecified HF chronicity, unspecified heart failure type (HC) Abnormal stress test Abnormal findings on diagnostic imaging of heart/coronary circulation CT CARDIAC CORONARY ARTERIES RAD DUAL READ DAVID 01/31/2024 12:27 PM MEDICAL DONATION PROFESSIONAL Heart failure, unspecified HF chronicity, unspecified heart failure type (HC) Abnormal stress test PACER EDWARD DUAL CHAMBER W REPROG Routine 01/31/2024 11:00 AM MEDICAL DONATION PROFESSIONAL PRO-BNP Routine 01/28/2024 1:30 PM MEDICAL DONATION PROFESSIONAL HFrEF (heart failure with reduced ejection fraction) (HC) BASIC METABOLIC PANEL Routine 01/28/2024 1:30 PM MEDICAL DONATION PROFESSIONAL HFrEF (heart failure with reduced ejection fraction) (HC) SCAN-EYE EXAM 01/19/2024 12:00 AM MEDICAL DONATION PROFESSIONAL ECHO TTE COMPLETE WO CONTRAST DAVID 01/17/2024 3:49 PM MEDICAL DONATION PROFESSIONAL HFrEF (heart failure with reduced ejection fraction) (HC) from Last 3 Months Results * SCAN-ULTRASOUND REPORT (04/14/2024 12:00 AM MEDICAL DONATION PROFESSIONAL) Anatomical Region Laterality Modality Other us Scanner OTHER Final Result * US LOWER EXTREMITY SOFT TISSUE LEFT (04/13/2024 2:49 PM MEDICAL DONATION PROFESSIONAL) Anatomical Region Laterality Modality ARM R Ultrasound 04/13/2024 3:00 PM MEDICAL DONATION PROFESSIONAL Narrative 04/13/2024 3:00 PM MEDICAL DONATION PROFESSIONAL For Patients: As a result of the [...] Result * SCAN-CARDIAC REHABILITATION (04/13/2024 12:04 PM MEDICAL DONATION PROFESSIONAL) us Scanner OTHER Final Result * (ABNORMAL) CBC WITH AUTO DIFFERENTIAL (03/28/2024 8:03 AM MEDICAL DONATION PROFESSIONAL) WHITE BLOOD COUNT 7.8 4.5 - 11.0 thou/cu mm 03/28/2024 8:48 AM [facility] RED BLOOD COUNT 3.41(L) 4.30 - 5.90 mil/cu mm 03/28/2024 8:48 AM [facility] HEMOGLOBIN 9.9(L) 13.5 - 17.5 g/dL 03/28/2024 8:48 AM [facility] HEMATOCRIT 33.1(L) 37.0 - 53.0 % 03/28/2024 8:48 AM [facility] MCV 97 80 - 100 fL 03/28/2024 8:48 AM [facility] MCH 29.0 26.0 - 34.0 pg 03/28/2024 8:48 AM [facility] MCHC 29.9(L) 32.0 - 36.0 g/dL 03/28/2024 8:48 AM [facility] RDW 14.6 11.5 - 15.5 % 03/28/2024 8:48 AM [facility] PLATELET COUNT 324 140 - 440 thou/cu mm 03/28/2024 8:48 AM [facility] MPV 10.2 6.5 - 11.0 fL 03/28/2024 8:48 AM [facility] % NEUT 68.9 % 03/28/2024 8:48 AM [facility] % LYMPH 17.7 % 03/28/2024 8:48 AM [facility] % MONO 8.9 % 03/28/2024 8:48 AM [facility] % EOS 4.4 % 03/28/2024 8:48 AM [facility] % BASO 0.1 % 03/28/2024 8:48 AM [facility] ABSOLUTE NEUTROPHILS 5.4 1.7 - 7.0 thou/cu mm 03/28/2024 8:48 AM [facility] ABSOLUTE LYMPHOCYTES 1.4 0.9 - 2.9 thou/cu mm 03/28/2024 8:48 AM [facility] ABSOLUTE MONOCYTES 0.7 <0.9 thou/cu mm 03/28/2024 8:48 AM [facility] ABSOLUTE EOSINOPHILS 0.3 <0.5 thou/cu mm 03/28/2024 8:48 AM [facility] ABSOLUTE BASOPHILS 0.0 <0.3 thou/cu mm 03/28/2024 8:48 AM [facility] Blood BLOOD SPECIMEN / Unknown Butterfly / Unknown 03/28/2024 8:03 AM [facility] 03/28/2024 8:35 AM [facility] us Edilma Sutherland NP HEMATOLOGY Final Resul t [facility] [address] [place] [address] * SCAN-CARDIAC STRIP (03/20/2024 8:42 AM MEDICAL DONATION PROFESSIONAL) Scanner OTHER Final Result * (ABNORMAL) GLUCOSE METER (03/20/2024 7:49 AM MEDICAL DONATION PROFESSIONAL) Only the most recent of47 resultswithin the time period is included. GLUCOSE METER 164(H) 65 - 100 mg/dL 03/20/2024 7:50 AM MEDICAL DONATION PROFESSIONAL [facility] Blood BLOOD SPECIMEN / Unknown 03/20/2024 7:49 AM MEDICAL DONATION PROFESSIONAL 03/20/2024 7:50 AM MEDICAL DONATION PROFESSIONAL Tonja Redman MD CHEMISTRY Final Res ult Performing Organization Address City/[facility]/ZIP Co de Phone Number [facility] [address] [place] [address], * (ABNORMAL) HEMOGLOBIN (03/20/2024 6:42 AM MEDICAL DONATION PROFESSIONAL) Only the most recent of9 resultswithin the time period is included. HEMOGLOBIN 10.1(L) 13.5 - 17.5 g/dL 03/20/2024 7:07 AM MEDICAL DONATION PROFESSIONAL [facility] MCV 93 80 - 100 fL 03/20/2024 7:07 AM MEDICAL DONATION PROFESSIONAL [facility] Blood BLOOD SPECIMEN / Unknown Venipuncture / Unknown 03/20/2024 6:42 AM MEDICAL DONATION PROFESSIONAL 03/20/2024 6:53 AM MEDICAL DONATION PROFESSIONAL Anila Palacios NP HEMATOLOGY Final R esult Performing Organization Address City/[facility]/ZIP Co de Phone Number [facility] [address] [place] [address], * (ABNORMAL) BASIC METABOLIC PANEL (03/20/2024 6:42 AM MEDICAL DONATION PROFESSIONAL) Only the most recent of11 resultswithin the time period is included. SODIUM 138 136 - 145 mmol/L 03/20/2024 7:17 AM MEDICAL DONATION PROFESSIONAL [facility] POTASSIUM 3.8 3.5 - 5.1 mmol/L 03/20/2024 7:17 AM [facility] CHLORIDE 101 98 - 107 mmol/L 03/20/2024 7:17 AM [facility] CO2,TOTAL 24 22 - 29 mmol/L 03/20/2024 7:17 AM [facility] ANION GAP 13 5 - 18 03/20/2024 7:17 AM [facility] GLUCOSE 172(H) 70 - 99 mg/dL 03/20/2024 7:17 AM [facility] CALCIUM 8.9 8.8 - 10.4 mg/dL 03/20/2024 7:17 AM [facility] Comment: Reference ranges for this test were updated on 01/04/2024 to reflect our healthy population more accurately. Reference range changes are not retroactively applied to results, but previous results using the same methodology can be interpreted in the context of the new reference range. BUN 26(H) 8 - 23 mg/dL 03/20/2024 7:17 AM [facility] CREATININE 1.10 0.70 - 1.20 mg/dL 03/20/2024 7:[address] [facility] BUN/CREAT RATIO 24(H) 10 - 20 7:17 AM [facility] eGFR 65(L) >90 mL/min/1. 73m2 03/20/2024 7:17 AM [facility] Comment:As of 2021, eG FR is calculated by the CKD-EPI creatinine equation without race adjustment. eGFR can be influenced by muscle mass, exercise, and diet. The reported eGFR is an estimation only and is only applicable if the renal function is stable. Blood BLOOD SPECIMEN / Unknown Venipuncture / Unknown 03/20/2024 6:42 AM MEDICAL DONATION PROFESSIONAL 03/20/2024 6:53 AM [facility] Anila Palacios NP CHEMISTRY Final R esult [facility] [address] [place] [id number], [place] * SCAN-CARDIAC STRIP (03/20/2024 1:16 AM MEDICAL DONATION PROFESSIONAL) us Scanner OTHER Final Result * SCAN-CARDIAC STRIP (03/19/2024 12:24 PM MEDICAL DONATION PROFESSIONAL) us Scanner OTHER Final Result * SCAN-CARDIAC STRIP (03/19/2024 4:13 AM MEDICAL DONATION PROFESSIONAL) us Scanner OTHER Final Result * POTASSIUM (03/18/2024 7:32 PM MEDICAL DONATION PROFESSIONAL) Only the most recent of6 resultswithin the time period is included. POTASSIUM 4.1 3.5 - 5.1 mmol/L 03/18/2024 7:56 PM MEDICAL DONATION PROFESSIONAL [facility] Blood BLOOD SPECIMEN / Unknown Venipuncture / Unknown 03/18/2024 7:32 PM MEDICAL DONATION PROFESSIONAL 03/18/2024 7:38 PM MEDICAL DONATION PROFESSIONAL us Tonja Redman MD CHEMISTRY Final Res ult Performing Organization Address [facility] Co de Phone Number [facility] [address] [address], [place] * SCAN-CARDIAC STRIP (03/18/2024 4:00 PM MEDICAL DONATION PROFESSIONAL) us Scanner OTHER Final Result * SCAN-CARDIAC STRIP (03/17/2024 3:37 PM MEDICAL DONATION PROFESSIONAL) us Scanner OTHER Final Result * SCAN-CARDIAC STRIP (03/17/2024 9:40 AM MEDICAL DONATION PROFESSIONAL) us Scanner OTHER Final Result * SCAN-CARDIAC STRIP (03/16/2024 9:18 AM MEDICAL DONATION PROFESSIONAL) us Scanner OTHER Final Result * MAGNESIUM (03/16/2024 7:05 AM MEDICAL DONATION PROFESSIONAL) Only the most recent of7 resultswithin the time period is included. Pathologist [facility] MAGNESIUM 2.1 1.6 - 2.4 mg/dL 03/16/2024 7:46 AM [facility] Blood BLOOD SPECIMEN / Unknown Venipuncture / Unknown 03/16/2024 7:05 AM MEDICAL DONATION PROFESSIONAL 03/16/2024 7:11 AM MEDICAL DONATION PROFESSIONAL us Tonja Redman MD CHEMISTRY Final Res ult [facility] [address] [place] [address], [place] * SCAN-CARDIAC STRIP (03/16/2024 1:39 AM MEDICAL DONATION PROFESSIONAL) us Scanner OTHER Final Result * SCAN-CARDIAC STRIP (03/15/2024 10:18 PM MEDICAL DONATION PROFESSIONAL) us Scanner OTHER Final Result * (ABNORMAL) CBC W PLT NO DIFF (03/15/2024 6:15 AM MEDICAL DONATION PROFESSIONAL) Only the most recent of7 resultswithin the time period is included. [facility] WHITE BLOOD COUNT 10.0 4.5 - 11.0 thou/cu mm 03/15/2024 6:35 AM MEDICAL DONATION PROFESSIONAL [facility] RED BLOOD COUNT 2.98(L) 4.30 - 5.90 mil/cu mm 03/15/2024 6:35 AM [facility] HEMOGLOBIN 9.1(L) 13.5 - 17.5 g/dL 03/15/2024 6:35 AM [facility] HEMATOCRIT 28.2(L) 37.0 - 53.0 % 03/15/2024 6:35 AM [facility] MCV 95 80 - 100 fL 03/15/2024 6:35 AM [facility] MCH 30.5 26.0 - 34.0 pg 03/15/2024 6:35 AM [facility] MCHC 32.3 32.0 - 36.0 g/dL 03/15/2024 6:35 AM MEDICAL DONATION PROFESSIONAL [facility] RDW 14.1 11.5 - 15.5 % 03/15/2024 6:35 AM MEDICAL DONATION PROFESSIONAL [facility] PLATELET COUNT 162 140 - 440 thou/cu mm 03/15/2024 6:35 AM [facility] MPV 10.9 6.5 - 11.0 fL 03/15/2024 6:35 AM MEDICAL DONATION PROFESSIONAL [facility] NRBC 0.0 % 03/15/2024 6:35 AM MEDICAL DONATION PROFESSIONAL [facility] ABS NRBC 0.0 thou /cu mm 03/15/2024 6:35 AM [facility] Blood BLOOD SPECIMEN / Unknown Venipuncture / Unknown 03/15/2024 6:15 AM MEDICAL DONATION PROFESSIONAL 03/15/2024 6:30 AM MEDICAL DONATION PROFESSIONAL us Mayelin Skinner NP HEMATOLOGY Final Result [facility] [address] [place] [address], * SCAN-CARDIAC STRIP (03/15/2024 12:37 AM MEDICAL DONATION PROFESSIONAL) us Scanner OTHER Final Result * SCAN-CARDIAC STRIP (03/14/2024 3:10 PM MEDICAL DONATION PROFESSIONAL) us Scanner OTHER Final Result * SCAN-CARDIAC STRIP (03/13/2024 10:58 PM MEDICAL DONATION PROFESSIONAL) us Scanner OTHER Final Result * EKG 12 LEAD (03/13/2024 1:09 PM MEDICAL DONATION PROFESSIONAL) Only the most recent of5 resultswithin the [...] NOW QTc 468 ms BEYOND NOW P [place] degrees BEYOND NOW R [place] 47 degrees BEYOND NOW T [place] 0 degrees BEYOND NOW 03/13/2024 1:09 PM MEDICAL DONATION PROFESSIONAL 03/14/2024 5:29 PM MEDICAL DONATION PROFESSIONAL us Mayelin Skinner NP EKG ORD Final Result Performing Organization Address [facility] de Phone Number BEYOND NOW [place], [place] * SCAN-CARDIAC STRIP (03/13/2024 9:12 AM MEDICAL DONATION PROFESSIONAL) us Scanner OTHER Final Result * Protime-INR (03/13/2024 8:22 AM MEDICAL DONATION PROFESSIONAL) Only the most recent of5 resultswithin the time period is included. INR 1.0 <1.3 03/13/2024 8:49 AM MEDICAL DONATION PROFESSIONAL [facility] PROTIME 11.9 10.6 - 12.4 sec 03/13/2024 8:49 AM MEDICAL DONATION PROFESSIONAL [facility] Blood BLOOD SPECIMEN / Unknown Venipuncture / Unknown 03/13/2024 8:22 AM MEDICAL DONATION PROFESSIONAL 03/13/2024 8:33 AM MEDICAL DONATION PROFESSIONAL Narrative [facility] - 03/13/2024 8:49 AM MEDICAL DONATION PROFESSIONAL Therapeutic Range 2.0-3.0 for most anticoagulated patients [...] Tonja Redman MD HEMATOLOGY Final Res ult Performing Organization Address [facility] Co de Phone Number [facility] [address] [place] [address], [place] * PHOSPHORUS (03/13/2024 8:22 AM MEDICAL DONATION PROFESSIONAL) PHOSPHORUS 3.1 2.5 - 4.5 mg/dL 03/13/2024 9:06 AM MEDICAL DONATION PROFESSIONAL [facility] Blood BLOOD SPECIMEN / Unknown Venipuncture / Unknown 03/13/2024 8:22 AM MEDICAL DONATION PROFESSIONAL 03/13/2024 8:33 AM MEDICAL DONATION PROFESSIONAL Cain Monet MD CHEMISTRY Maia l Result [facility] [address] [place] [id number], [place] * CALCIUM IONIZED HOSPITAL DRAW ONLY (03/13/2024 8:22 AM MEDICAL DONATION PROFESSIONAL) Only the most recent of6 resultswithin the time period is included. CALCIUM,IONIZE D 1.23 1.15 - 1.27 mmol/L 03/13/2024 8:37 AM MEDICAL DONATION PROFESSIONAL [facility] Blood BLOOD SPECIMEN / Unknown Venipuncture / Unknown 03/13/2024 8:22 AM MEDICAL DONATION PROFESSIONAL 03/13/2024 8:33 AM MEDICAL DONATION PROFESSIONAL Cain Monet MD CHEMISTRY Maia l Result Performing Organization Address City/[facility]/ZIP Co de Phone Number [facility] [address] [address], [place] * XR CHEST 1 VIEW PORTABLE (03/13/2024 8:13 AM MEDICAL DONATION PROFESSIONAL) Only the most recent of5 resultswithin the time period is included. Anatomical Region Laterality Modality HEART, THORAX, CHEST Digital Rad iography 03/13/2024 9:00 AM MEDICAL DONATION PROFESSIONAL Impressions 03/13/2024 9:00 AM MEDICAL DONATION PROFESSIONAL 1. Resolved left pneumothorax. 2. Small bilateral pleural effusions. Dictated by Kristen Pelayo MD @ Mar 13 2024 9:00AM (Electronically Signed) [email or web address] Narrative 03/13/2024 9:00 AM MEDICAL DONATION PROFESSIONAL For Patients: As a result of the [...] @ Mar 13 2024 9:00AM (Electronically Signed) [email or web address] us Cain Monet MD GENERAL IMAGING Maia l Result * SCAN-CARDIAC STRIP (03/13/2024 1:29 AM MEDICAL DONATION PROFESSIONAL) us Scanner OTHER Final Result * TRANSFUSE RBC (NURSE COMMUNICATION ORDER) (03/12/2024 4:55 PM MEDICAL DONATION PROFESSIONAL) Blood BLOOD SPECIMEN / Unknown Kristen GIL NURSING BLOOD BANK Final Result * (ABNORMAL) SODIUM (03/12/2024 3:56 PM MEDICAL DONATION PROFESSIONAL) SODIUM 131(L) 136 - 145 mmol/L 03/12/2024 4:19 PM MEDICAL DONATION PROFESSIONAL [facility] Blood BLOOD SPECIMEN / Unknown Non-Lab Venipuncture / Unknown 03/12/2024 3:56 PM MEDICAL DONATION PROFESSIONAL 03/12/2024 4:01 PM MEDICAL DONATION PROFESSIONAL Cain Monet MD CHEMISTRY Maia l Result Performing Organization Address [facility]/ZIP Co de Phone Number [facility] [address] [place] [phone], * (ABNORMAL) URINALYSIS MICROSCOPIC (03/12/2024 11:35 AM MEDICAL DONATION PROFESSIONAL) RBC 11-25(A) 0-2, None Seen /HPF 03/12/2024 12:42 PM MEDICAL DONATION PROFESSIONAL [facility] WBC 6-10(A) 0-2, 3-5, None Seen /HPF 03/12/2024 12:42 PM MEDICAL DONATION PROFESSIONAL [facility] BACTERIA Rare None Seen, Rare, Few Bacteria/ HPF 03/12/2024 12:42 PM MEDICAL DONATION PROFESSIONAL [facility] EPITHELIAL CELLS None Seen None Seen, Few Epi/HPF 03/12/2024 12:42 PM MEDICAL DONATION PROFESSIONAL [facility] HYALINE CASTS 11-25(A) 0-2, 3-5 /LPF 03/12/2024 12:42 PM MEDICAL DONATION PROFESSIONAL [facility] GRANULAR CASTS 0-2(A) (none) /LPF 03/12/2024 12:42 PM MEDICAL DONATION PROFESSIONAL [facility] Urine URINE SPECIMEN / Unknown Non-Blood / Unknown 03/12/2024 11:35 AM MEDICAL DONATION PROFESSIONAL 03/12/2024 12:19 PM MEDICAL DONATION PROFESSIONAL Kristen GIL URINE Final Re sult Performing Organization Address City/[facility]/ZIP Co de Phone Number [facility] [address] [place] [id number], [place] * (ABNORMAL) UA W/ SEDIMENT EXAM REFLEXED PER CRITERIA (03/12/2024 11:35 AM MEDICAL DONATION PROFESSIONAL) COLOR Yellow Yellow Color 03/12/2024 12:42 PM [facility] CLARITY Cloudy(A) Clear Clarity 03/12/2024 12:42 PM MEDICAL DONATION PROFESSIONAL [facility] SPECIFIC GRAVITY,URINE >=1.030(A) 1.010, 1.015, 1.020, 1.025 03/12/2024 12:42 PM [facility] PH,URINE 5.0(A) 6.0, 7.0, 8.0, 5.5, 6.5, 7.5, 8.5 03/12/2024 12:42 PM [facility] UROBILINOGEN, QUALITATIVE Normal Normal EU/dl 03/12/2024 12:42 PM [facility] PROTEIN, URINE 30(A) Negative mg/dL 03/12/2024 12:42 PM [facility] GLUCOSE, URINE >=1000(A) Negative mg/dL 03/12/2024 12:42 PM MEDICAL DONATION PROFESSIONAL [facility] KETONES,URINE 15(A) Negative mg/dL 03/12/2024 12:42 PM [facility] BILIRUBIN,URI NE Negative Negative 03/12/2024 12:42 PM [facility] OCCULT BLOOD,URINE Moderate(A) Negative 03/12/2024 12:42 PM [facility] NITRITE Negative Negative 03/12/2024 12:42 PM MEDICAL DONATION PROFESSIONAL [facility] LEUKOCYTE ESTERASE Negative Negative 03/12/2024 12:42 PM [facility] Urine URINE SPECIMEN / Unknown Non-Blood / Unknown 03/12/2024 11:35 AM MEDICAL DONATION PROFESSIONAL 03/12/2024 12:19 PM MEDICAL DONATION PROFESSIONAL Kristen GIL URINE Final Re sult Performing Organization Address City/[facility]/ZIP Co de Phone Number [facility] [address] [address], [place] * RBC W/O TYPE & SCREEN (03/12/2024 10:34 AM MEDICAL DONATION PROFESSIONAL) Only the most recent of2 resultswithin the time period is included. QUANTITY 1 03/12/2024 10:34 AM MEDICAL DONATION PROFESSIONAL [facility] B[facility]OD BANK Blood BLOOD SPECIMEN / Unknown 03/12/2024 9:12 AM MEDICAL DONATION PROFESSIONAL Kristen Ramírez PA BLOOD BANK Final Re sult Performing Organization Address [facility] Co de Phone Number [facility] [address] [place] [address], [place] [phone] * LACTATE ARTERIAL (03/12/2024 3:35 AM MEDICAL DONATION PROFESSIONAL) Only the most recent of3 resultswithin the time period is included. Pathologist [facility] LACTATE,ARTERI AL 1.1 0.5 - 1.6 mmol/L 03/12/2024 4:07 AM MEDICAL DONATION PROFESSIONAL [facility] Blood BLOOD SPECIMEN / Unknown Non-Lab Venipuncture / Unknown 03/12/2024 3:35 AM MEDICAL DONATION PROFESSIONAL 03/12/2024 3:44 AM MEDICAL DONATION PROFESSIONAL Ne Bailey MD CHEMISTRY F inal Result Performing Organization Address [facility] Co de Phone Number [facility] [address] [address], [place] * (ABNORMAL) O2 SATURATION,MEASURED (03/12/2024 3:35 AM MEDICAL DONATION PROFESSIONAL) Only the most recent of2 resultswithin the time period is included. O2 SATURATION,JUANI SURED 65 % 03/12/2024 3:56 AM MEDICAL DONATION PROFESSIONAL [facility] HEMOGLOBIN,BLO OD GAS 8.4(L) 13.5 - 17.5 g/dL 03/12/2024 3:56 AM MEDICAL DONATION PROFESSIONAL [facility] SOURCE, O2M Venous 03/12/2024 3:56 AM MEDICAL DONATION PROFESSIONAL [facility] Blood BLOOD SPECIMEN / Unknown Non-Lab Venipuncture / Unknown 03/12/2024 3:35 AM MEDICAL DONATION PROFESSIONAL 03/12/2024 3:45 AM MEDICAL DONATION PROFESSIONAL [facility]ative [facility] 03/12/2024 3:56 AM MEDICAL DONATION PROFESSIONAL Reference Range for: Arterial Source (94-98) Non-Arterial Source (70-75) Ne Bailey MD CHEMISTRY F inal Result Performing Organization Address City/[facility]/ZIP Co de Phone Number [facility] [address] [place] [address], [place] * AMMONIA (03/12/2024 3:35 AM MEDICAL DONATION PROFESSIONAL) Only the most recent of2 resultswithin the time period is included. AMMONIA 20 11 - 51 umol/L 03/12/2024 4:07 AM MEDICAL DONATION PROFESSIONAL [facility] Blood BLOOD SPECIMEN / Unknown Non-Lab Venipuncture / Unknown 03/12/2024 3:35 AM MEDICAL DONATION PROFESSIONAL 03/12/2024 3:44 AM MEDICAL DONATION PROFESSIONAL Narrative [facility] - 03/12/2024 4:07 AM MEDICAL DONATION PROFESSIONAL 1. Sulfasalazine and its metabolite Sulfapyridine at therapeutic concentrations may lead to falsely low results. 2. Temozolomide and its metabolite MTIC may lead to falsely elevated results, and its metabolite AIC may lead to falsely low results. Cain Monet MD CHEMISTRY Maia l Result Performing Organization Address City/[facility]/ZIP Co de Phone Number [facility] [address] [place] [address], [place] * (ABNORMAL) COMP METABOLIC PANEL (03/12/2024 3:35 AM MEDICAL DONATION PROFESSIONAL) SODIUM 132(L) 136 - 145 mmol/L 03/12/2024 4:12 AM MEDICAL DONATION PROFESSIONAL [facility] TRAL LABORATORY POTASSIUM 3.9 3.5 - 5.1 mmol/L 03/12/2024 4:12 AM [facility] TRAL LABORATORY CHLORIDE 100 98 - 107 mmol/L 03/12/2024 4:12 AM [facility] TRA LABORATORY CO2,TOTAL 21(L) 22 - 29 mmol/L 03/12/2024 4:12 AM [facility] TRAL LABORATORY ANION GAP 11 5 - 18 03/12/2024 4:12 AM [facility] TRA LABORATORY GLUCOSE 255(H) 70 - 99 mg/dL 03/12/2024 4:12 AM [facility] TRAL LABORATORY CALCIUM 8.6(L) 8.8 - 10.4 mg/dL 03/12/2024 4:12 AM [facility] Comment: Reference ranges for this test were updated on 01/04/2024 to reflect our healthy population more accurately. Reference range changes are not retroactively applied to results, but previous results using the same methodology can be interpreted in the context of the new reference range. BUN 15 8 - 23 mg/dL 03/12/2024 4:12 AM [facility] CREATININE 0.95 0.70 - 1.20 mg/dL 03/12/2024 4:[address] [facility] BUN/CREAT RATIO 16 10 - 20 4:[address] [facility] eGFR 78(L) >90 mL/min/1. 73m2 03/12/2024 4:12 AM [facility] Comment:As of 2021, eG FR is calculated by the CKD-EPI creatinine equation without race adjustment. eGFR can be influenced by muscle mass, exercise, and diet. The reported eGFR is an estimation only and is only applicable if the renal function is stable. ALBUMIN 3.5(L) 4.0 - 4.9 g/dL 03/12/2024 4:12 AM [facility] TRAL LABORATORY PROTEIN,TOTAL 5.2(L) 6.0 - 8.0 g/dL 03/12/2024 4:12 AM [facility] LABORATORY BILIRUBIN,TOTAL 2.7(H) 0.0 - 1.2 mg/dL 03/12/2024 4:12 AM MEDICAL DONATION PROFESSIONAL [facility] TRAL LABORATORY ALK PHOSPHATASE 53 40 - 129 IU/L 03/12/2024 4:12 AM MEDICAL DONATION PROFESSIONAL [facility] ALT (SGPT) 7(L) 10 - 50 IU/L 03/12/2024 4:12 AM MEDICAL DONATION PROFESSIONAL [facility] AST (SGOT) 29 10 - 50 IU/L 03/12/2024 4:12 AM MEDICAL DONATION PROFESSIONAL [facility] Blood BLOOD SPECIMEN / Unknown Non-Lab Venipuncture / Unknown 03/12/2024 3:35 AM MEDICAL DONATION PROFESSIONAL 03/12/2024 3:44 AM MEDICAL DONATION PROFESSIONAL us Cain Monet MD CHEMISTRY Maia l Result [facility] [address] [place] [address], [place] * PLATELET COUNT (03/11/2024 3:55 AM MEDICAL DONATION PROFESSIONAL) Only the most recent of3 resultswithin the time period is included. PLATELET COUNT 152 140 - 440 thou/cu mm 03/11/2024 4:10 AM MEDICAL DONATION PROFESSIONAL [facility] MPV 10.3 6.5 - 11.0 fL 03/11/2024 4:10 AM MEDICAL DONATION PROFESSIONAL [facility] Blood BLOOD SPECIMEN / Unknown Non-Lab Venipuncture / Unknown 03/11/2024 3:55 AM MEDICAL DONATION PROFESSIONAL 03/11/2024 4:05 AM MEDICAL DONATION PROFESSIONAL us Luann Camarillo MD HEMATOLOGY Final Resu lt [facility] [address] [place] [address], [place] * (ABNORMAL) ARTERIAL BLOOD GAS (03/11/2024 12:32 AM MEDICAL DONATION PROFESSIONAL) Only the most recent of2 resultswithin the time period is included. PH, ARTERIAL 7.45 7.35 - 7.45 03/11/2024 12:46 AM MEDICAL DONATION PROFESSIONAL [facility] PCO2, ARTERIAL 33(L) 35 - 48 mmHg 03/11/2024 12:46 AM [facility]AL [facility] PO2, ARTERIAL 126(H) 83 - 108 mmHg 03/11/2024 12:46 AM [facility]AL LAB[facility] HCO3, ARTERIAL 23 21 - 28 mmol/L 03/11/2024 12:46 AM MEDICAL DONATION PROFESSIONAL [facility] BASE EXCESS, ARTERIAL -0.4 -2.0 - 3.0 03/11/2024 12:[address] [facility] O2 SATURATION, ARTERIAL 100(H) 94 - 98 % 03/11/2024 12:[address] [facility] INSPIRED O2 40 03/11/2024 12:46 AM [facility] TRA LABORATORY Comment:Unit of Measure: Lit ers (L) if <=20; Percent (%) if >20 PATIENT TEMPERATURE 37.3 Degrees C 03/11/2024 12:[address] [facility] Blood ARTERIAL BLOOD SPECIMEN / Unknown Non-Lab Venipuncture / Unknown 03/11/2024 12:32 AM MEDICAL DONATION PROFESSIONAL 03/11/2024 12:40 AM MEDICAL DONATION PROFESSIONAL Tonja Redman MD CHEMISTRY Final Res ult Performing Organization Address City/[facility]/ZIP Co de Phone Number [facility] [address] [place] [address], * (ABNORMAL) Thrombin Time - Immediate Postop (03/10/2024 5:47 PM MEDICAL DONATION PROFESSIONAL) THROMBIN TIME 17(H) <16 sec 03/10/2024 6:05 PM MEDICAL DONATION PROFESSIONAL [facility] Blood BLOOD SPECIMEN / Unknown Non-Lab Venipuncture / Unknown 03/10/2024 5:47 PM MEDICAL DONATION PROFESSIONAL 03/10/2024 5:54 PM MEDICAL DONATION PROFESSIONAL Tonja Redman MD HEMATOLOGY Final Res ult [facility] [address] [address], [place] * (ABNORMAL) CREATININE (03/10/2024 5:47 PM MEDICAL DONATION PROFESSIONAL) eGFR 87(L) >90 mL/min/1.7 3m2 03/10/2024 9:19 PM MEDICAL DONATION PROFESSIONAL [facility] Comment:As of 2021, eG FR is calculated by the CKD-EPI creatinine equation without race adjustment. eGFR can be influenced by muscle mass, exercise, and diet. The reported eGFR is an estimation only and is only applicable if the renal function is stable. CREATININE 0.77 0.70 - 1.20 mg/dL 03/10/2024 9:19 PM MEDICAL DONATION PROFESSIONAL [facility] Blood BLOOD SPECIMEN / Unknown Non-Lab Venipuncture / Unknown 03/10/2024 5:47 PM MEDICAL DONATION PROFESSIONAL 03/10/2024 5:54 PM MEDICAL DONATION PROFESSIONAL Tonja Redman MD CHEMISTRY Final Res ult Performing Organization Address City/[facility]/ZIP Co de Phone Number [facility] [address] [address], [place] * APTT - Immediate Postop (03/10/2024 5:47 PM MEDICAL DONATION PROFESSIONAL) APTT 29 25 - 36 sec 03/10/2024 6:05 PM MEDICAL DONATION PROFESSIONAL [facility] Blood BLOOD SPECIMEN / Unknown Non-Lab Venipuncture / Unknown 03/10/2024 5:47 PM MEDICAL DONATION PROFESSIONAL 03/10/2024 5:54 PM MEDICAL DONATION PROFESSIONAL Narrative [facility] - 03/10/2024 6:05 PM MEDICAL DONATION PROFESSIONAL Therapeutic Range: 59-89 seconds Tonja Redman MD HEMATOLOGY Final Res ult Performing Organization Address City/[facility]/ZIP Co de Phone Number [facility] [address] [place] [address], [place] * Fibrinogen, Quantitative - Immediate Postop (03/10/2024 5:47 PM MEDICAL DONATION PROFESSIONAL) Only the most recent of2 resultswithin the time period is included. FIBRINOGEN,[place] NTITATIVE 242 193 - 401 mg/dL 03/10/2024 6:10 PM MEDICAL DONATION PROFESSIONAL [facility] Blood BLOOD SPECIMEN / Unknown Non-Lab Venipuncture / Unknown 03/10/2024 5:47 PM MEDICAL DONATION PROFESSIONAL 03/10/2024 5:54 PM MEDICAL DONATION PROFESSIONAL us Tonja Redman MD HEMATOLOGY Final Res ult [facility] [address] [place] [address], * TRANSFUSE CRYOPRECIPITATE (NURSE COMMUNICATION ORDER) (03/10/2024 4:56 PM MEDICAL DONATION PROFESSIONAL) Blood BLOOD SPECIMEN / Unknown Marino Rain CRNA NURSING BLOOD BAN K Final Result * TRANSFUSE PLT (NURSE COMMUNICATION ORDER) (03/10/2024 4:32 PM MEDICAL DONATION PROFESSIONAL) Blood BLOOD SPECIMEN / Unknown Marino Rain CRNA NURSING BLOOD BAN K Final Result * TRANSFUSE PLT (NURSE COMMUNICATION ORDER) (03/10/2024 4:32 PM MEDICAL DONATION PROFESSIONAL) Blood BLOOD SPECIMEN / Unknown Marion Rain CRNA NURSING BLOOD BAN K Final Result * TRANSFUSE PLASMA (NURSE COMMUNICATION ORDER) (03/10/2024 4:29 PM MEDICAL DONATION PROFESSIONAL) Blood BLOOD SPECIMEN / Unknown Marino Rain CRNA NURSING BLOOD BAN K Final Result * PLASMA ORDER, 2 units (03/10/2024 4:18 PM MEDICAL DONATION PROFESSIONAL) QUANTITY 2 03/10/2024 4:1 8 PM MEDICAL DONATION PROFESSIONAL [facility] Blood BLOOD SPECIMEN / Unknown 03/10/2024 4:11 PM MEDICAL DONATION PROFESSIONAL Nataliya Linares MD BLOOD BANK Edited Result - Final Performing Organization Address City/[facility]/ZIP Co de Phone Number [facility] B[facility] [address] [place] [address], [place] [phone] * PLATELET ORDER, 1 unit (03/10/2024 4:18 PM MEDICAL DONATION PROFESSIONAL) Only the most recent of2 resultswithin the time period is included. QUANTITY 1 03/10/2024 4:1 8 PM MEDICAL DONATION PROFESSIONAL [facility] LAB BLOOD BANK Blood BLOOD SPECIMEN / Unknown 03/10/2024 4:11 PM MEDICAL DONATION PROFESSIONAL Nataliya Linares MD BLOOD BANK Final R esult Performing Organization Address [facility]/ZIP Co de Phone Number [facility] LAB BLOOD BANK [address] [place] [address], [place] [phone] * CRYOPRECIPITATE ORDER, 1 Pools (03/10/2024 4:18 PM MEDICAL DONATION PROFESSIONAL) QUANTITY 1 03/10/2024 4:1 [address] [facility] LAB BLOOD BANK Blood BLOOD SPECIMEN / Unknown 03/10/2024 4:11 PM MEDICAL DONATION PROFESSIONAL Nataliya Linares MD BLOOD BANK Final R esult Performing Organization Address City/[facility]/ZIP Co de Phone Number [facility] [address] [place] [address], [place] [phone] * PLATELET EA UNIT (03/10/2024 4:15 PM MEDICAL DONATION PROFESSIONAL) Only the most recent of2 resultswithin the time period is included. PRODUCT BLOOD TYPE O Rh Positive [facility] [employer] LAB BLOOD BANK PRODUCT ID NUMBER [id number] [facility]-CENTRAL LAB BLOOD BANK PRODUCT STATUS Transfused [facility] Client24-CENTRAL LAB BLOOD BANK PRODUCT DESCRIPTION SDP ACD-A IRR LR Pt1 [facility] [employer] LAB BLOOD BANK PRODUCT CODE [id number] [facility] LAB BLOOD BANK ISSUE DATE/TIME 03/10/24 16:23 [employer] [facility] LAB BLOOD BANK Nataliya Linares MD BLOOD BANK Edited Result - Final Performing Organization Address City/[facility]/ZIP Co de Phone Number [employer] [facility] BLOOD BANK [address] [place] [address], [place] [phone] * PLASMA SNGL DON FFPEA UNIT (03/10/2024 4:15 PM MEDICAL DONATION PROFESSIONAL) Only the most recent of2 resultswithin the time period is included. PRODUCT BLOOD TYPE O Rh Positive [facility] BLOOD BANK PRODUCT ID NUMBER [id number] [facility] BLOOD BANK PRODUCT STATUS [employer] [facility] LAB BLOOD BANK PRODUCT DESCRIPTION FP ACD-A Thaw [facility] BLOOD BANK PRODUCT CODE [id number] [facility] BLOOD BANK ISSUE DATE/TIME 03/10/24 16:19 [facility] BLOOD BANK Nataliya Linares MD BLOOD BANK Edited Result - Final [employer] BLOOD BANK [address] [place] [address], [place] [phone] * CRYOPRECIPITATE EA UNIT (03/10/2024 4:15 PM MEDICAL DONATION PROFESSIONAL) Only the most recent of2 resultswithin the time period is included. PRODUCT BLOOD TYPE O Rh Positive [facility] BLOOD BANK PRODUCT ID NUMBER [id number] [facility] BLOOD BANK PRODUCT STATUS [employer] [facility] LAB BLOOD BANK PRODUCT DESCRIPTION CRYO [facility] BLOOD BANK PRODUCT CODE [id number] [employer] LAB BLOOD BANK ISSUE DATE/TIME 03/10/24 16:47 [employer] [facility] LAB BLOOD BANK Nataliya Linares MD BLOOD BANK Edited Result - Final [facility] BLOOD BANK [address] [place] [address], * TRANSFUSE RBC (NURSE COMMUNICATION ORDER) (03/10/2024 3:47 PM MEDICAL DONATION PROFESSIONAL) Blood BLOOD SPECIMEN / Unknown Marino Rain GAMBLING FLOOR SUPERVISOR NURSING BLOOD BAN K Final Result * (ABNORMAL) Cardiac Thromboelastography (03/10/2024 3:35 PM MEDICAL DONATION PROFESSIONAL) ANA REASON Cardiac Weaning Pre-Protamin e Panel 03/10/2024 5:36 PM MEDICAL DONATION PROFESSIONAL [facility] TRAL LABORATORY INTEM CT >365(H) 139 - 205 s 03/10/2024 5:36 PM MEDICAL DONATION PROFESSIONAL [facility] LAB[facility]ORY EXTEM CT 145(H) 51 - 73 s 03/10/2024 5:36 PM MEDICAL DONATION PROFESSIONAL [facility] TR[facility] LAB[facility]ATORY EXTEM A5 41 33 - 52 mm 03/10/2024 5:36 PM MEDICAL DONATION PROFESSIONAL [facility] TRAL LAB[facility]ATORY EXTEM A10 52 45 - 62 mm 03/10/2024 5:36 PM MEDICAL DONATION PROFESSIONAL [facility] TR[facility] LAB[facility]ORY EXTEM A20 59 54 - 69 mm 03/10/2024 5:36 PM MEDICAL DONATION PROFESSIONAL [facility] TR[facility] LAB[facility]ORY EXTEM MCF 61 57 - 72 mm 03/10/2024 5:36 PM MEDICAL DONATION PROFESSIONAL [facility] TRAL LABORATORY EXTEM ML 3 0 - 6 % 03/10/2024 5:36 PM MEDICAL DONATION PROFESSIONAL [facility] TRAL LABORATORY EXTEM LI60 98 94 - 100 % 03/10/2024 5:36 PM MEDICAL DONATION PROFESSIONAL [facility] TRAL LABORATORY FIBTEM A5 10 5 - 16 mm 03/10/2024 5:36 PM MEDICAL DONATION PROFESSIONAL [facility] TR[facility] LAB[facility]ORY FIBTEM A10 12 6 - 17 mm 03/10/2024 5:36 PM MEDICAL DONATION PROFESSIONAL [facility] TRAL LABORATORY FIBTEM A20 13 6 - 18 mm 03/10/2024 5:36 PM MEDICAL DONATION PROFESSIONAL [facility] TRAL LABORATORY FIBTEM MCF 13 6 - 19 mm 03/10/2024 5:36 PM MEDICAL DONATION PROFESSIONAL [facility] TRAL LABORATORY HEPTEM CT 251(H) 141 - 215 s 03/10/2024 5:36 PM MEDICAL DONATION PROFESSIONAL [facility] TR[facility] LAB[facility]ATORY HEPTEM A5 36 33 - 51 mm 03/10/2024 5:36 PM MEDICAL DONATION PROFESSIONAL [facility] TRAL LAB[facility]ATORY HEPTEM A10 47 44 - 61 mm 03/10/2024 5:36 PM MEDICAL DONATION PROFESSIONAL [facility] TR[facility] LABORATORY HEPTEM A20 55 52 - 67 mm 03/10/2024 5:36 PM MEDICAL DONATION PROFESSIONAL [facility] TRAL LABORATORY HEPTEM MCF 56 54 - 69 mm 03/10/2024 5:36 PM MEDICAL DONATION PROFESSIONAL [facility] TRAL [facility]ORY Blood BLOOD SPECIMEN / Unknown Non-Lab Venipuncture / Unknown 03/10/2024 3:35 PM MEDICAL DONATION PROFESSIONAL 03/10/2024 3:44 PM MEDICAL DONATION PROFESSIONAL Marino Rain CRNA HEMATOLOGY F inal Result [facility] [address] [place] [address], * RED BLOOD CELLS EA UNIT (03/10/2024 3:30 PM MEDICAL DONATION PROFESSIONAL) Only the most recent of2 resultswithin the time period is included. CROSSMATCH Compatible Compatible [facility] PRODUCT BLOOD TYPE O Rh Positive [facility] B[facility] PRODUCT ID NUMBER [id number] [facility] [employer] MarketCENTRAL LAB BLOOD BANK PRODUCT STATUS Transfused [facility] KnowFuCENTRAL LAB BLOOD BANK PRODUCT DESCRIPTION RBC -1 LR [facility] Client24CENTRAL LAB BLOOD BANK PRODUCT CODE [id number] [facility]ENTRAL LAB BLOOD BANK ISSUE DATE/TIME 03/10/24 15:30 [facility] KnowFuCENTRAL LAB BLOOD BANK Nataliya Linares MD BLOOD BANK Edited Result - Final [facility] BLOOD BANK [address] [place] [address], * FANG (03/10/2024 3:10 PM MEDICAL DONATION PROFESSIONAL) Narrative Nataliya Linares MD - 03/10/2024 6:54 PM MEDICAL DONATION PROFESSIONAL Nataliya Linares MD 03/10/2024 3:11 PM FANG [...] Nataliya Linares MD - 03/10/2024 3:10 PM MEDICAL DONATION PROFESSIONAL Nataliya Linares MD 03/10/2024 3:10 PM CVC [...] PR5, HCHG KIT PR5 (03/10/2024 3:09 PM MEDICAL DONATION PROFESSIONAL) Narrative Nataliya Linares MD - 03/10/2024 3:09 PM MEDICAL DONATION PROFESSIONAL Nataliya Linares MD 03/10/2024 3:10 PM Arterial [...] * ECHO FANG INTRAOPERATIVE (03/10/2024 2:42 PM MEDICAL DONATION PROFESSIONAL) Anatomical Region Laterality Modality Computed Radiogr aphy 03/10/2024 11:2 3 AM MEDICAL DONATION PROFESSIONAL Narrative 03/10/2024 5:04 PM MEDICAL DONATION PROFESSIONAL TRANSESOPHAGEAL ECHOCARDIOGRAM ENRIKE YARBROUGH : 1940 84 years Study Date: 03/10/2024 11:23:38 AM Gender: M BP: 109/52 mmHg Height: 170.00 cm BSA: 2.09 m Weight: 98.00 kg Tech: Referring MD: DERICK WINN Site: [facility] Reading Location: [facility] Patient Location: Procedure: FANG. Indication for study: [...] kg Tech: Referring MD: DERICK WINN Site: [facility] Reading Location: [facility] Patient Location: Procedure: FANG. Indication for study: [...] PR1, HCHG STYLET PR1 (03/10/2024 1:18 PM MEDICAL DONATION PROFESSIONAL) Narrative Diane Benavides GAMBLING FLOOR SUPERVISOR - 03/10/2024 1:18 PM MEDICAL DONATION PROFESSIONAL Diane Benavides CRNA 03/10/2024 1:19 PM Procedure: [...] Measured From: teeth Difficulty: 0 (not difficult) Result [facility] Nataliya Linares MD ANESTHESIA PX NOTE ORDE RABLES Final Result * Type and Screen (03/10/2024 10:41 AM MEDICAL DONATION PROFESSIONAL) ABORH O Rh Positive 03/10/2024 11:43 AM MEDICAL DONATION PROFESSIONAL [employer] LAB BLOOD BANK ANTIBODY SCREEN Negative Negative 03/10/2024 11:43 AM [facility] [employer] [facility] SPECIMEN EXPIRATION DATE/TIME 03/13/24 23:59 03/10/2024 11:43 AM [facility] [employer] [facility] Blood BLOOD SPECIMEN / Unknown Venipuncture / Unknown 03/10/2024 10:41 AM MEDICAL DONATION PROFESSIONAL 03/10/2024 10:59 AM MEDICAL DONATION PROFESSIONAL Olamide GIL BLOOD BANK Final Res ult [facility] BLOOD BANK [address] [place] [address], * (ABNORMAL) Glucose, Fasting (03/10/2024 10:41 AM MEDICAL DONATION PROFESSIONAL) Pathologist [facility] GLUCOSE 153(H) 70 - 99 mg/dL 03/10/2024 11:31 AM MEDICAL DONATION PROFESSIONAL [facility] Blood BLOOD SPECIMEN / Unknown Venipuncture / Unknown 03/10/2024 10:41 AM MEDICAL DONATION PROFESSIONAL 03/10/2024 10:59 AM MEDICAL DONATION PROFESSIONAL Olamide GIL CHEMISTRY Final Res ult [facility] [address] [place] [address], [place] * EXTRA TUBE GOLD/SST (03/10/2024 10:40 AM MEDICAL DONATION PROFESSIONAL) Blood BLOOD SPECIMEN / Unknown Extra Tube / Unknown 03/10/2024 10:40 AM MEDICAL DONATION PROFESSIONAL 03/10/2024 11:01 AM MEDICAL DONATION PROFESSIONAL Tonja Redman MD LABORATORY Final Res ult [facility] [address] [place] [address], [place] * SCAN-OPERATIVE/PROCEDURE REPORT (03/10/2024 12:00 AM MEDICAL DONATION PROFESSIONAL) Narrative 03/10/2024 12:00 AM MEDICAL DONATION PROFESSIONAL Ordered by an unspecified provider. Other Clinical Staff OTHER Final Resul t * (ABNORMAL) HEMOGLOBIN A1C MONITORING (POCT) (03/03/2024 8:51 AM MEDICAL DONATION PROFESSIONAL) Pathologist [facility] POC HEMOGLOBIN A1C 7.7(H) <6.0 % OF TOTAL HGB [facility] Comment: Any point of care results exhibiting inconsistency with the patient's clinical status should be repeated using a different testing method. Blood BLOOD SPECIMEN / Unknown 03/03/2024 8:51 AM MEDICAL DONATION PROFESSIONAL 03/03/2024 8:51 AM MEDICAL DONATION PROFESSIONAL us Lindsay Toscano MD CHEMISTRY Final Result [facility] [address] [place] [address], [facility] [address] [place] [address] * SCAN-RADIOLOGY REPORT (02/24/2024 12:00 AM MEDICAL DONATION PROFESSIONAL) Anatomical Region Laterality Modality Other us Scanner OTHER Final Result * SCAN-CT INTERPRETATION (02/24/2024 12:00 AM MEDICAL DONATION PROFESSIONAL) Anatomical Region Laterality Modality Other us Scanner OTHER Final Result * US CAROTID DUPLEX BILATERAL (02/18/2024 9:29 AM MEDICAL DONATION PROFESSIONAL) Anatomical Region Laterality Modality CAROTID, NECK Ultrasound 02/18/2024 8:51 AM MEDICAL DONATION PROFESSIONAL Narrative 02/18/2024 1:54 PM MEDICAL DONATION PROFESSIONAL VASCULAR ULTRASOUND REPORT ENRIKE YARBROUGH : 1940 Study Date: 02/18/2024 8:51:53 AM Age: 83 years Tech: JODY Gender: M Referring MD: SEYMOUR COLLAZO Site: [facility] Vascular Center Study performed: Carotid Indication for [...] Accreditation Commission (IAC/Vascular), www.intersocietal.org/vascular Report generated by Voices. Final Procedure Note Mario Alberto Bailey MD - 02/18/2024 VASCULAR ULTRASOUND REPORT ENRIKE YARBROUGH : 1940 Study Date: 02/18/2024 8:51:53 AM Age: 83 years Tech: JODY Gender: M Referring MD: SEYMOUR COLLAZO Site: [facility] - Vascular Center Study performed: Carotid Indication for [...] theIntersocietal Accreditation Commission (IAC/Vascular),www.intersocietal.org/vascular Report generated by Voices. Final us Seymour GIL US Final Result * US VEIN MAPPING LOWER EXTREMITY BILATERAL (02/18/2024 9:29 AM MEDICAL DONATION PROFESSIONAL) Anatomical Region Laterality Modality LEGS, LEG L, LEG R Ultrasound 02/18/2024 9:05 AM MEDICAL DONATION PROFESSIONAL Narrative 02/18/2024 1:42 PM MEDICAL DONATION PROFESSIONAL VASCULAR ULTRASOUND REPORT ENRIKE YARBROUGH : 1940 Study Date: 02/18/2024 9:05:05 AM Age: 83 years Tech: JODY Gender: M Referring MD: SEYMOUR COLLAZO Site: [facility] Vascular Center Study performed: (bilateral), vein mapping. [...] Accreditation Commission (IAC/Vascular), www.intersocietal.org/vascular Report generated by Voices. Final Procedure Note Mario Alberto Bailey MD - 02/18/2024 VASCULAR ULTRASOUND REPORT ENRIKE YARBROUGH : 1940 Study Date: 02/18/2024 9:05:05 AM Age: 83 years Tech: JODY Gender: M Referring MD: SEYMOUR COLLAZO Site: [facility] - Vascular Center Study performed: (bilateral), vein mapping. [...] theIntersocietal Accreditation Commission (IAC/Vascular),www.intersocietal.org/vascular Report generated by Voices. Final us Seymour GIL US Final Result * CVL CORONARY ANGIOGRAM POSS PCI (02/11/2024 2:21 PM MEDICAL DONATION PROFESSIONAL) Anatomical Region Laterality Modality X-Ray Angiograph y, X-Ray Angiography 02/11/2024 2:21 PM MEDICAL DONATION PROFESSIONAL Narrative Transcriptions Aba Viramontes MD - 02/11/2024 4:47 PM CST [facility] Cardiac Catheterization Report Name: ENRIKE YARBROUGH Event Date: 02/11/2024 14:21 Excellian ID #: [id number] LIVIA #: [id number] Patient Class: Outpatient Diagnostic Physician: ABA VIRAMONTES [facility] Referring Physician: PCP Lindsay Toscano Primary Care [...] plan for higher risk PCI Consent & Muse Protocol The risks, benefits, and alternatives of the procedure were discussed withthe patient and written informed consent was obtained. Muse protocol was followed. TIME OUT conducted just prior tostarting procedure confirmed patient identity, site/side, procedure,patient position, and availability of correct equipment and implants (ifapplicable). Staff Name Title ABA VIRAMONTES Diagnostic Donor Relations Manager Tre Wong RN Nurse Yamila Lawrence CVT Scrub Krunal Villanueva CVT Monitor Katelynn Boyce FLATTENING PRESS OPERATOR Ball Mill Operator Procedures ? Ultrasound Guided Vascular Access ? [...] healthcare professional providing the sedation ends personal yzaljdqjduwyuf-hk-qtyj time with the patient. The medications listed above were verbally ordered by me and read back tome as documented above. Refer to the procedure log report for additional case details. electronically signed on 02/11/2024 4:47:20 PM with status of Final Aba Viramontes MD [facility] [address] [place] [address] (p) (f) us Provider Referring CV IMAGING Edited Result - Final * PATH TISSUE EXAM (02/02/2024 9:50 AM MEDICAL DONATION PROFESSIONAL) Case Report Pathology Report Case: [id number] Authorizing Provider: Constance Colmenares MD Collected: 02/02/2024 0950 Ordering Location: [facility] Received: 02/02/2024 1535 Clinic Pathologist: Lisandra Wise MD Specimen: Skin, left leg 02/09/2024 8:32 AM [facility]- ENTRAL LABORATORY Final Diagnosis SKIN, LEFT LEG, BIOPSY: 1. Spongiotic superficial dermatophyte infection 2. Fungal hyphae are identified within the stratum corneum on PAS stained sections 3. Negative for malignancy 02/09/2024 8:32 AM MEDICAL DONATION PROFESSIONAL [facility] ENTRAL LABORATORY Clinical Information Granuloma annulare vs tinea igconito 02/09/2024 8:32 AM [facility] ENTRAL LABORATORY Gross Description A) Received in formalin, labeled with the patient's name and left leg, is a 0.4 x 0.4 cm skin punch biopsy excised to a maximum depth of 0.5 cm. The skin surface is smooth and garcia. No discrete lesion is grossly identified. The specimen is inked yellow, bisected and entirely submitted in one cassette. SJM 02/03/2024 02/09/2024 8:32 AM [facility] ENTRAL LABORATORY Microscopic Description The final diagnosis is based on microscopic examination of appropriate sections of all specimens. Sections reveal spongiosis of the epidermis and a mixed upper and mid dermal mixed inflammatory infiltrate. PAS positive fungal hyphae are identified within the stratum corneum. The presence of yellow ink is confirmed on tissue sections. 02/09/2024 8:32 AM [facility] ENTRAL LABORATORY Additional Information Interpreted at [facility], Central Laboratory - [address], [place] [address] 02/09/2024 8:32 AM MEDICAL DONATION PROFESSIONAL [facility]-C ENTRAL LABORATORY Other SPECIMEN FROM SKIN / Unknown Non-Blood / Unknown 02/02/2024 9:50 AM MEDICAL DONATION PROFESSIONAL 02/02/2024 3:35 PM MEDICAL DONATION PROFESSIONAL Constance Colmenares MD PATHOLOGY/CYTOLOGY Final Resul t [facility]-CENTRAL LABORATORY [address] [place] [address], * (ABNORMAL) LIPID PANEL W REFLEX MEASURED LDL (02/01/2024 11:44 AM MEDICAL DONATION PROFESSIONAL) CHOLESTEROL, TOTAL 211(H) <200 mg/dL [facility] HDL CHOLESTEROL 69 > OR = 40 mg/dL [facility] TRIGLYCERIDES 102 <150 mg/dL [facility] LDL-CHOLESTEROL 122(H) mg/dL (calc) [facility] Comment: Reference range: <100 Desirable range <100 mg/dL for primary prevention; <70 mg/dL for patients with CHD or diabetic patients with > or = 2 CHD risk factors. LDL-C is now calculated using the Frandy-Wynn calculation, which is a validated novel method providing better accuracy than the Friedewald equation in the estimation of LDL-C. Frandy SS et al. KAMILA. 2013;310(19): 1985-2821 (http://education.nodishes.co.uk.Glasses Direct/faq/WPY135) CHOL/HDLC RATIO 3.1 <5.0 (calc) [facility] NON HDL CHOLESTEROL 142(H) <130 mg/dL (calc) [facility] Comment: For patients with diabetes plus 1 major ASCVD risk factor, treating to a non-HDL-C goal of <100 mg/dL (LDL-C of <70 mg/dL) is considered a therapeutic option. Blood BLOOD SPECIMEN / Unknown 02/01/2024 11:44 AM MEDICAL DONATION PROFESSIONAL 02/01/2024 11:46 AM MEDICAL DONATION PROFESSIONAL Narrative [facility] - 02/02/2024 4:34 AM MEDICAL DONATION PROFESSIONAL FASTING:NO FASTING: NO Melanie Raysa GIL CHEMISTRY Final Res ult Performing Organization Address [facility]/ZIP Co de Phone Number [facility] [address] [place] [address], [place] [phone] [facility] [address] [place] [address] * ALT (SGPT) (02/01/2024 11:44 AM MEDICAL DONATION PROFESSIONAL) ALT 16 9 - 46 U/L [facility] Blood BLOOD SPECIMEN / Unknown 02/01/2024 11:44 AM MEDICAL DONATION PROFESSIONAL 02/01/2024 11:46 AM MEDICAL DONATION PROFESSIONAL Narrative [facility] - 02/02/2024 4:34 AM MEDICAL DONATION PROFESSIONAL FASTING:NO FASTING: NO Melanie GIL CHEMISTRY Final Res ult Performing Organization Address [facility]/ZIP Co de Phone Number [facility] [address] [place] [address], [place] [phone] [facility] [facility] [address] [place] [address] * AST (SGOT) (02/01/2024 11:44 AM MEDICAL DONATION PROFESSIONAL) AST 20 10 - 35 U/L [facility] Blood BLOOD SPECIMEN / Unknown 02/01/2024 11:44 AM MEDICAL DONATION PROFESSIONAL 02/01/2024 11:46 AM MEDICAL DONATION PROFESSIONAL Narrative [facility] - 02/02/2024 4:34 AM MEDICAL DONATION PROFESSIONAL FASTING:NO FASTING: NO Melanie Raysa GIL CHEMISTRY Final Res ult [facility] [address] [place] [address], [place] [phone] [facility] [address] [place] [address] * CTA FRACTIONAL FLOW RESERVE (01/31/2024 12:27 PM MEDICAL DONATION PROFESSIONAL) Anatomical Region Laterality Modality Computed Tomogra phy Narrative 02/01/2024 2:57 PM MEDICAL DONATION PROFESSIONAL Images from the original result were not included. [facility] Cardiac CT Report Name: ENRIKE YARBROUGH David : Scan Date: Accession Number: [id number] Status: Final Electronically signed by Rakesh Chawla [...] TYPE: Calcium score, Coronary CT Angiography SCANNER VENUE COORDINATOR: SIEMENS SCANNER MODEL: SOMATOM Force DOSE REDUCTION ALGORITHM: Prospective/Qaaj-bpu-bznqp PHASE UNITS: ms START PHASE: 280 ms [...] MELANIE ISBELL TECHNOLOGIST: Allison Willson Patient Account [id number] ICD10 Codes I50.9, R94.39 Report generated by [employer], a product of [employer] For [...] conjunction with the services provided by the [facility] ([facility]). Extracardiac findings: Visualized lungs and pleural spaces: [...] CORONARY ARTERIES DUAL READ (01/31/2024 12:27 PM MEDICAL DONATION PROFESSIONAL) Anatomical Region Laterality Modality HEART Computed Tomogra phy 01/31/2024 12:0 7 PM MEDICAL DONATION PROFESSIONAL Narrative 02/01/2024 2:57 PM MEDICAL DONATION PROFESSIONAL Images from the original result were not included. [facility] Cardiac CT Report Name: ENRIKE YARBROUGH David : Scan Date: Accession Number: [id number] Status: Final Electronically signed by Rakesh Chawla [...] TYPE: Calcium score, Coronary CT Angiography SCANNER VENUE COORDINATOR: foodpanda / hellofood SCANNER MODEL: Levanta DOSE REDUCTION ALGORITHM: Prospective/Judx-eww-lqndd PHASE UNITS: ms START PHASE: 280 ms [...] MELANIE ISBELL TECHNOLOGIST: Allison Willson Patient Account [id number] ICD10 Codes I50.9, R94.39 Report generated by [employer], a product of [employer] For [...] conjunction with the services provided by the [facility] ([facility]). Extracardiac findings: Visualized lungs and pleural spaces: [...] Melanie GIL CT Final Res ult * PACER EDWARD DUAL CHAMBER W REPROG (01/31/2024 11:00 AM MEDICAL DONATION PROFESSIONAL) Narrative Darby Hayward RN - 01/31/2024 11:00 AM MEDICAL DONATION PROFESSIONAL Darby Hayward RN 02/01/2024 8:34 AM PACEMAKER EVALUATION REPORT 01/31/24 Summary: Normal pacemaker function. Lead trends stable. No VT detections. 17.3 % AT/AF detections, on Eliquis, rates controlled. 32.6 AP%, 97.4 IMPACT RETAIL SERVICE MERCHANDISER% battery remaining 9.7 years. Indication for Pacemaker: Atrial Fibrillation with Slow Ventricular Response Primary MD: Lindsay Toscano MD Primary Donor Relations Manager: Implanting MD: Enrike Goode MD DEVICE DATA Stitching Machine Setter Medtronic: Model Ibnta XT DR EVANS Kong [id number] Implant Date 03/21/2022 LEAD DATA Atrial Lead: Stitching Machine Setter Medtronic: Model 5076 52 cm Implant Date 03/21/2022 RV Lead: Stitching Machine Setter Medtronic: Model 5076 58 cm Implant Date [...] 17.3% AT/AF burden. Viewable EGMs show afib/flutter w/IMPACT RETAIL SERVICE MERCHANDISER. Patient is anticoagulated and overall ventricular rates [...] carelink utilizing a Relay monitor with annual [place] each ~September. 12:45 pm Reprogrammed patient post [...] Bipolar Darby Hayward RN Nurse Clinician II [facility] Pacemaker/ICD Clinic [phone] us Enrike Goode MD CARDIAC SERVICES ORD Final Result * PRO-BNP (01/28/2024 1:30 PM MEDICAL DONATION PROFESSIONAL) NT PROBNP 318 <450 pg/mL [facility] Blood BLOOD SPECIMEN / Unknown 01/28/2024 1:30 PM MEDICAL DONATION PROFESSIONAL 01/28/2024 1:31 PM MEDICAL DONATION PROFESSIONAL us Melanie GIL SEND OUTS Final Res ult [facility] [place] [address] [address], [facility] [address] [address] * SCAN-EYE EXAM (01/19/2024 12:00 AM MEDICAL DONATION PROFESSIONAL) us Scanner OTHER Final Result * ECHO TTE COMPLETE WO CONTRAST (01/17/2024 3:49 PM MEDICAL DONATION PROFESSIONAL) AORTIC VALVE MEAN PG 4 mmHg EJECTION FRACTION 52 % LVEDD 5.1 cm Anatomical Region Laterality Modality Ultrasound 01/17/2024 2:47 PM MEDICAL DONATION PROFESSIONAL Narrative 01/17/2024 4:38 PM MEDICAL DONATION PROFESSIONAL ECHOCARDIOGRAM ENRIKE YARBROUGH : 1940 83 years Study Date: 01/17/2024 2:47:16 PM Gender: M BP: 98/64 mmHg Height: 175.26 cm BSA: 2.14 m Weight: 98.88 kg Tech: MSR Referring MD: MELANIE ISBELL Site: [facility] Reading Location: Mobile OP Patient Location: Outpatient. [...] . This study was interpreted by an [facility] accredited facility. Final Procedure Note Marcelo Cates MD - 01/17/2024 ECHOCARDIOGRAM ENRIKE YARBROUGH : 1940 83 years Study Date: 01/17/2024 2:47:16 PM Gender: M BP: 98/64 mmHg Height: 175.26 cm BSA: 2.14 m Weight: 98.88 kg Tech: MSR Referring MD: MELANIE ALEXANDRA CASE Site: [facility] Reading Location: [place] [facility] Patient Location: Outpatient. Procedure: 2D, Color [...] . This study was interpreted by an [facility] accredited facility. 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 Healthcare Directive 02/10/2024 INVALID , MISS[place] PAGE, 02/10/2024 Power of Icing And Glaze Maker 10/19/1996 DURABLE PO WER OF PRESCHOOL ASSOCIATE TEACHER FOR HEALTH CARE, [facility], 10/19/1996 Power of Icing And Glaze Maker 10/19/1996 STATUTORY SHORT FORM POWER OF PRESCHOOL ASSOCIATE TEACHER, [facility], 10/19/1996 Healthcare Directive 03/04/1993 HEALTH CARE DECLARATION, [facility], 03/04/1993 * Full Code (Latest Code Status [...] 7:00 PM 04/07/2012 3:58 PM Care Teams Neon Sign Installer Relationship Specialty Start Date End Date Lindsay Toscano MD [address] [place] [address] PCP - General Family Practice 08/14/13 Pardeep Baird, [facility] Surgery - Orthopedics 09/09/12 Rocael Gamez [address] [place] [address] Ophthalmology Surgery 09/09/12 [place] [address] [place] [address] Rheumatology 03/07/24
[2024-04-16 06:34] VITALS: BP 132/75; PULSE 76; RESP 18; TEMP 36.7; O2SAT 96; BMI 32.0
--- NOTE | 2024-04-16 06:56 | ED.GENADULT ---
HPI - General Adult General Chief complaint: Skin/Abscess/Foreign Body Stated complaint: Buttock Infection Time Seen by Provider: 04/16/24 06:58 History of Present Illness HPI narrative: CC: Buttock Cellulitis pt. was seen on 04/14 and was given IM abx and was started on po abx. comes in today d/t thinks cellulitis is getting worse. denies fevers, n/v, diarrhea. 84-year-old man presenting to the emergency department with concern of skin infection. Increasing pain and now a little drainage from a wound on his left buttock. Seen in this emergency department about 36 hours ago. Given a dose of Rocephin. Had been seen the day prior also received Rocephin. Had in the interim taken 1 dose of cephalexin. Has been taken regularly dosed cephalexin over the last and half since this last ER visit where was diagnosed with cellulitis. Ultrasound done at that time as follows FINDINGS/IMPRESSION: In the superficial soft tissues of the right buttock there is a heterogeneous hypoechoic focus abutting the posterior dermal line (subcutaneous) measuring 2.6 x 0.9 x 2.2 cm in transverse, AP and craniocaudad dimensions, respectively, with peripheral vascularity and diffusely increased hyperechogenicity of the surrounding soft tissues, which is consistent with surrounding edema. Differential diagnostic considerations for this focus include phlegmonous change and fat necrosis, for example. There is no significant fluid element to indicate an abscess, for example. Overlying skin thickening is noted consistent with edema/cellulitis. Clinical follow-up is suggested. He has not had fever. Surprisingly notes that during exam he is able to lie relatively comfortably on his back with a little pressure on this area History of diabetes. Related Data Home Medications ?Medication ?Instructions ?Recorded ?Confirmed apixaban 5 mg tablet (Eliquis) 5 mg PO Q12H 02/15/22 02/24/24 blood sugar diagnostic (True 02/15/22 08/06/23 Metrix Glucose Test Strip) lisinopril 20 1 tab PO DAILY 02/15/22 02/24/24 mg-hydrochlorothiazide 25 mg tablet metformin 500 mg tablet,extended 2,000 mg PO DAILY 02/15/22 02/24/24 release 24 hr acetaminophen 500 mg capsule 500 mg PO Q6H PRN 07/27/23 02/24/24 cyanocobalamin (vitamin B-12) 1,000 mcg PO QDAY 07/27/23 02/24/24 1,000 mcg capsule gabapentin 300 mg capsule 300 mg PO QPM 07/27/23 02/24/24 glipizide 5 mg tablet, extended 15 mg PO DAILY 07/27/23 02/24/24 release 24 hr prednisone 5 mg tablet 5 - 15 mg PO DAILY 07/27/23 02/24/24 tamsulosin 0.4 mg capsule 0.4 mg PO DAILY 07/27/23 02/24/24 trospium 20 mg tablet 20 mg PO DAILY 07/27/23 02/24/24 empagliflozin 10 mg tablet 10 mg PO DAILY 02/24/24 02/24/24 (Jardiance) glipizide 10 mg tablet, extended mg PO 02/24/24 release 24 hr isosorbide mononitrate 30 mg 30 mg PO DAILY 02/24/24 02/24/24 tablet,extended release 24 hr metoprolol succinate 25 mg 12.5 mg PO DAILY 02/24/24 02/24/24 tablet,extended release 24 hr nitroglycerin 0.4 mg sublingual mg sublingual 02/24/24 tablet prednisone 10 mg tablet 10 - 15 mg PO DAILY 02/24/24 02/24/24 rosuvastatin 20 mg tablet 20 mg PO QPM 02/24/24 02/24/24 sacubitril 24 mg-valsartan 26 mg 1 tab PO BID 02/24/24 02/24/24 tablet (Entresto) terbinafine HCl 1 % topical cream applic topical BID 02/24/24 cephalexin 500 mg capsule 500 mg PO QID 04/14/24 04/14/24 Allergies Allergy/AdvReac Type Severity Reaction Status Date / Time No Known Drug Allergies Allergy Verified 02/24/24 09:03 Review of Systems Status of ROS: Reports: 6 or more systems reviewed and unremarkable except as noted in History and below [facility] Medical History BPH without urinary obstruction ?N40.0 - Benign prostatic hyperplasia without lower urinary tract symptoms (ICD-10) Mild cognitive impairment ?G31.84 - Mild cognitive impairment of uncertain or unknown etiology (ICD-10) Prostate cancer ?C61 - Malignant neoplasm of prostate (ICD-10) Mobitz (type) I (Wenckebach's) atrioventricular block ?I44.1 - Atrioventricular block, second degree (ICD-10) Atrial fibrillation ?I48.91 - Unspecified atrial fibrillation (ICD-10) Iron deficiency anemia ?D50.9 - Iron deficiency anemia, unspecified (ICD-10) Erectile dysfunction ?N52.9 - Male erectile dysfunction, unspecified (ICD-10) Displacement of lumbar intervertebral disc without myelopathy ?M51.26 - Other intervertebral disc displacement, lumbar region (ICD-10) Degeneration of lumbar or lumbosacral intervertebral disc ?M51.37 - Other intervertebral disc degeneration, lumbosacral region (ICD-10) Vitamin B12 deficiency ?E53.8 - Deficiency of other specified B group vitamins (ICD-10) Lumbar radiculopathy ?M54.16 - Radiculopathy, lumbar region (ICD-10) 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 - Complete traumatic metacarpophalangeal amputation of unspecified finger, initial encounter (ICD-10) Diabetes ?E11.9 - Type 2 diabetes mellitus without complications (ICD-10) COVID ?U07.1 - COVID-19 (ICD-10) Surgical History History of permanent cardiac pacemaker placement ?Z95.0 - Presence of cardiac pacemaker (ICD-10) History of cholecystectomy ?Z90.49 - Acquired absence of other specified parts of digestive tract (ICD-10) History of appendectomy ?Z90.49 - Acquired absence of other specified parts of digestive tract (ICD-10) History of arthroscopy of left shoulder (03/21/96) ?Z98.890 - Other specified postprocedural states (ICD-10) History of arthroscopy of right shoulder (11/26/11) ?Z98.890 - Other specified postprocedural states (ICD-10) S/P ORIF (open reduction internal fixation) fracture (04/05/14) ?Z98.890 - Other specified postprocedural states (ICD-10) ?Z87.81 - Personal history of (healed) traumatic fracture (ICD-10) Family History Mother Bowel cancer Social History Smoking Status: Former smoker Do you use any of these nicotine containing products: None Second hand tobacco smoke exposure: Yes How often do you have a drink containing alcohol: 4 or more times a week How many standard drinks containing alcohol do you have on a typical day: 1 or 2 AUDIT-C Alcohol total score: 4 Non-prescribed substance use: denies use Exam Narrative: Exam Narrative: Pleasant. NAD. Quite alert and engaged in conversation. Breathing easily. Lungs are clear. Heart in appears to be in regular rhythm with some ectopic beats. Extremities are well perfused. Examination of the area of skin in question is the left lower inner buttock. Removal of a tends shows some light blood staining corresponding to a quarter-sized wound. Mildly ulcerated darkened tissue with a palm sized area of mild erythema and calor. Surrounding this central darker area there is 3 inch or so area of more significant induration of subcutaneous tissues extending toward perineal area. Quite tender to palpation specifically over the central ulceration/erosion. Const: Vital Signs, click to edit/add: Vital Signs - 24 hr 04/16/24 08:30 04/16/24 09:15 Pulse Rate [Right Pulse Oximeter] 75 69 Respiratory Rate 18 18 Blood Pressure [Ri ght Upper Arm] 106/63 115/63 Pulse Oximetry 96 94 Oxygen Delivery Me thod Room Air Room Air Documenting provider has reviewed patient's vital signs: yes Course Vital Signs Vital signs: Initial Vital Signs Temperature 98.1 F 04/16/24 06:34 Temperature Source Temporal Artery Scan 04/16/24 06:34 Pulse Rate 76 04/16/24 06:34 Respiratory Rate 18 04/16/24 06:34 Blood Pressure 132/75 04/16/24 06:34 Blood Pressure Mean 94 04/16/24 06:34 Blood Pressure Position Sitting 04/16/24 06:34 Pulse Oximetry 96 04/16/24 06:34 Oxygen Delivery Method Room Air 04/16/24 06:34 Vital Signs Temperature 98.1 F 04/16/24 06:34 Pulse Rate 76 04/16/24 06:34 Respiratory Rate 18 04/16/24 06:34 Blood Pressure 132/75 04/16/24 06:34 Pulse Oximetry 96 04/16/24 06:34 Oxygen Delivery Method Room Air 04/16/24 06:34 Temperature 98.1 F 04/16/24 06:34 Pulse Rate 69 04/16/24 09:15 Respiratory Rate 18 04/16/24 09:15 Blood Pressure 115/63 04/16/24 09:15 Pulse Oximetry 94 04/16/24 09:15 Oxygen Delivery Method Room Air 04/16/24 09:15 Medications Administered Medications: Discontinued Medications Generic Name Dose Route Start Last Admin Trade Name Freq PRN Reason Stop Dose Admin Sodium Chloride 500 mls @ 500 mls/hr 04/16/24 07:06 04/16/24 08:43 0.9 % Sodium Chloride 500 Ml IV 04/16/24 08:05 Infused .Q1H ONE Infusion Medical Decision Making MDM Narrative Medical decision making narrative: This wound and subcutaneous swelling appears to have progressed since last exam. There is some mild drainage now. My concern is extending abscess into the peroneal structures. In setting of diabetes is a potential but I think less likely Nicole's. Appears generally well. Will check labs and IV contrasted CT of the pelvis. White count is reassuring. Pending imaging results. I do independently review CT of pelvis. I do not appreciate discrete abscess formation. See radiology over-read below Left buttock and perineal abscess/cellulitis. COMPARISON: None. TECHNIQUE: CT of the pelvis with intravenous contrast. Multiplanar axial, coronal, and sagittal reformats were reconstructed. Contrast: 98 mL Isovue 370. FINDINGS: Urinary bladder: Mildly thick walled. Pelvis: Prostatomegaly. Vessels: Atherosclerotic vascular calcifications. Bowel: Within the field of view no dilated or inflamed bowel. The appendix is not definitely seen. Large stool burden. Lymph nodes: No adenopathy. Peritoneum: No ascites. Abdominal wall: No lower abdominal wall hernia. There is some focal skin thickening and subcutaneous edema and inflammation in the inferior left buttock and left perineum. No abscess. No foreign body. No subcutaneous gas. Normal CT appearance of the inguinal canals and spermatic cords. Incidentally noted small lipoma in the rectus femoris muscle on the right. Bones: No fractures. No focal worrisome bone lesions. IMPRESSION: Cellulitis in the left perineum and left buttock. No abscess. No subcutaneous or fascial gas. I did discuss findings with Mr. Coleman and his . I am not convinced there has been antibiotic failure here but would consider changing antibiotic to offer more staph coverage. Shows very good renal function. Medications reviewed. Did review dosing double strength Bactrim with pharmacy and looks like should be fine. Also need to be avoiding irritating this tissue. I am not sure that Mepilex dressings are indicated here but I would like to offload the tissues well seated in particular. Also has appointment with primary care provider after the weekend. See patient discharge plan for further discussion It does not look as though you have developed an abscess here at this point. That is a relief. I am not sure that we have seen antibiotic failure but perhaps would be good to switch to something with a little different bacterial coverage. Discontinue cephalexin and I am prescribing Bactrim from [facility]. Do stay well-hydrated. Recommending warm soapy or warm Epsom water soaks or perhaps your hydro therapy tub as you mentioned; sitting/soaking in this once or twice daily over the next few days. I would consider getting a sacral donut so that you can sit without putting pressure on this area. Lab Data Labs: Lab Results 04/16/24 Range/Units 07:06 WBC 7.43 (4.50-11.00) K/uL RBC 3.56 L (4.30-5.90) m/uL Hgb 9.6 L (13.5-17.5) gm/dL Hct 31.7 L (37.0-53.0) % MCV 89 (80-100) fL MCH 27 (26-34) pg MCHC 30 L (32-36) gm/dL RDW Coeff of Ferny 14.4 (11.5-15.5) % Plt Count 191 (140-440) K/uL Neut % (Auto) 72.0 (42.0-72.0) % Lymph % (Auto) 14.3 L (20-44) % [place] % (Auto) 9.4 (0.0-11.0) % Eos % (Auto) 3.9 (0.0-7.0) % Baso % (Auto) 0.3 (0.0-3.0) % Neut # (Auto) 5.35 (1.7-7.0) K/uL Lymph # (Auto) 1.10 (0.90-2.90) K/uL [place] # (Auto) 0.70 (0.00-0.90) K/UL Eos # (Auto) 0.29 (0.00-0.50) K/uL Baso # (Auto) 0.02 (0.00-0.30) K/uL Abs Immat Gran (auto) 0.01 (0.00-0.30) K/uL Imm/Tot Granulo (auto) 0.1 % Sodium 135 (135-149) mmol/L Potassium 3.8 (3.6-5.1) mmol/L Chloride 104 (96-114) mmol/L Carbon Dioxide 19 L (20-32) mmol/L Anion Gap 12 (7-15) mEq/L BUN 19 (7-30) mg/dL Creatinine 0.8 (0.5-1.5) mg/dL Estimated Creat Clear 53.03 Estimated GFR 86 ml/min Glucose 176 H (60-115) mg/dL Calcium 8.6 (8.4-10.6) mg/dL C-Reactive Protein 6.5 H (0.5-1.0) mg/dL Discharge Plan Discharge Clinical Impression: Cellulitis, Skin erosion Patient Disposition: Home w/ Parent or Adult Condition: Stable Instructions: Cellulitis (ED) Additional Instructions: It does not look as though you have developed an abscess here at this point. That is a relief. I am not sure that we have seen antibiotic failure but perhaps would be good to switch to something with a little different bacterial coverage. Discontinue cephalexin and I am prescribing Bactrim from [facility]. Do stay well-hydrated. Recommending warm soapy or warm Epsom water soaks or perhaps your hydro therapy tub as you mentioned; sitting/soaking in this once or twice daily over the next few days. I would consider getting a sacral donut so that you can sit without putting pressure on this area. Prescriptions: No Action prednisone 5 mg tablet 5 - 15 mg PO DAILY glipizide 5 mg tablet extended release 24hr 15 mg PO DAILY trospium 20 mg tablet 20 mg PO DAILY tamsulosin 0.4 mg capsule 0.4 mg PO DAILY gabapentin 300 mg capsule 300 mg PO QPM cyanocobalamin (vitamin B-12) 1,000 mcg capsule 1,000 mcg PO QDAY acetaminophen 500 mg capsule 500 mg PO Q6H PRN terbinafine HCl 1 % cream topical BID prednisone 10 mg tablet 10 - 15 mg PO DAILY glipizide 10 mg tablet extended release 24hr PO isosorbide mononitrate 30 mg tablet extended release 24 hr 30 mg PO DAILY nitroglycerin 0.4 mg tablet, sublingual sublingual metoprolol succinate 25 mg tablet extended release 24 hr 12.5 mg PO DAILY rosuvastatin 20 mg tablet 20 mg PO QPM Jardiance 10 mg tablet 10 mg PO DAILY sacubitril-valsartan [Entresto] 24-26 mg tablet 1 tab PO BID (DME) True Metrix Glucose Test Strip Strip MISCELLANEOUS Patient Comments: TEST 2 TIMES PER WEEK. lisinopril-hydrochlorothiazide 20-25 mg tablet 1 tab PO DAILY Patient Comments: TAKE ONE TABLET BY MOUTH ONCE DAILY metformin 500 mg tablet extended release 24 hr 2,000 mg PO DAILY Patient Comments: TAKE 4 TABLETS (2,000 MG) BY MOUTH ONCE DAILY WITH EVENING MEAL. Eliquis 5 mg tablet 5 mg PO Q12H Patient Comments: TAKE 1 TABLET (5 MG) BY MOUTH TWO TIMES DAILY. cephalexin 500 mg capsule 500 mg PO QID Follow Up/Referrals: Bari Toscano MD [Primary Care Provider] - Stand Alone Forms: [facility] Info Instructions
[2024-04-16 07:00] VITALS: BP 109/64; PULSE 93; RESP 18; O2SAT 93
[2024-04-16 07:24] LABS: Basophils Absolute Auto 0.02 K/uL (0.00-0.30); Basophils Percent Auto 0.3 % (0.0-3.0); Eosinophils Absolute Auto 0.29 K/uL (0.00-0.50); Eosinophils Percent Auto 3.9 % (0.0-7.0); Hematocrit 31.7 % (37.0-53.0); Hemoglobin* 9.6 gm/dL (13.5-17.5); Immature Granulocytes Abs Auto 0.01 K/uL (0.00-0.30); Immature Granulocytes Pct Auto 0.1 %; Lymphocytes Percent Auto 14.3 % (20-44); Mean Corpuscular HGB Conc 30 gm/dL (32-36); Mean Corpuscular Hemoglobin 27 pg (26-34); Mean Corpuscular Volume 89 fL (80-100); Monocytes Percent Auto 9.4 % (0.0-11.0); Neutrophils Absolute Auto 5.35 K/uL (1.7-7.0); Platelet Count* 191 K/uL (140-440); RDW Coefficient of Variation % 14.4 % (11.5-15.5); Red Blood Count 3.56 m/uL (4.30-5.90); White Blood Count* 7.43 K/uL (4.50-11.00)
--- OUTSIDE RECORDS SUMMARY | 2024-04-16 07:24 | XMS_ITS | Clinical Summary ---
Author Organization [facility] Address [address], [place] [address] Care Team Providers Care Early Childhood Assistant Name Role Phone Unavailable Primary Care Provider [...] this topic Insurance MEDICARE BCBS [place] [phone]
--- OUTSIDE RECORDS SUMMARY | 2024-04-16 07:24 | XMS_ITS | Continuity of Care Document ---
Author Organization [facility] Address [address] [place] [address] Phone Care Team Providers Care Corporate Event Planner Name Role Phone Pardeep Baird MD Unavailable [...] Lumbar Spinalcord Seg Office/Outpatient Visit,[facility] 2012 Advance Directives Directive Yes / No Effective Date File Name No Information Encounters Encounter Description Practice Location Reason(s) For Visit Diagnoses Date Provider Providers Copied on Encounter [facility], [address], [place], [place], [id number], [place] tel:[phone] [facility] No Information 5 Brie Roberto. [facility] [place], [facility] [address] [place] [address], [facility] [address] [place], [place], [id number], [place]. tel:[phone] Office/Outpa tient Visit,Est, Low Z [facility] [place], [address] [place] [address] [address], [place], [address], [place] tel:[phone] [facility] No Information 3 [address]. [address] [place] [address], [id number], [place]. tel:[phone] Referring Provider: Brayden Hart, [facility], [place], [address]. tel:[phone] Z [facility], [address] [place] [address], [facility], [place] tel:[phone] [facility] No Information 0 [address] [place] [address], [id number], [place]. tel:[phone] Referring Provider: Brayden Hart, [facility] Wendy [facility], [place], [address]. tel:[phone] Z [facility] [place], [address] [place] [address], [facility], [place] tel:[phone] [facility] No Information 0 [address] [place] [address], [id number], [place]. tel:[phone] Z [facility] [place], [address] [place] [address], [facility], [place] tel:[phone] [facility] No Information 0 3 Transfel[address] Ensor. [facility] [place], [address] [place] [address], [id number], [place]. tel:[phone] Referring Provider: Brayden Hart, [facility] Wendy [facility], [place], [address]. tel:[phone] Office/Outpa tient Visit,[facility], [facility] Z [facility], [address] [place] [address], [facility], [place] tel:[phone] [facility] LUMBAGO 3 [address]fel[address] Ensor. [facility] [place], [address] [place] [address], [address], [id number], [place]. tel:[phone] Referring Provider: Brayden Hart, [place] [address] [address], [place], [address]. tel:[phone] Family History Family Member Type Diagnosis Age [...]
--- OUTSIDE RECORDS SUMMARY | 2024-04-16 07:24 | XMS_ITS | Clinical Summary ---
Author Organization [facility] Address [place], [place] [address] Care Team Providers Care Bpm Developer Name Role Phone Pardeep Baird [facility] Unavailable + Rocael Gamez Unavailable Lindsay Toscano MD Primary Care Provider Hudson Valle MD Unavailable [phone] Allergies No known active allergies Medications cyanocobalamin [...] Department Care Team Description 04/14/2024 11:20 AM OPERATIONS MGR Office Visit [facility] [address] [place] [address] Lindsay Toscano MD Follow Up (Follow up from 04/13/24/Painful injection site) 04/14/2024 Orders Only [facility] Scanner 1 scan: (1-Ord) [place] ED, US LOWER EXTREMITY RT NON VASCULAR, 04/14/2024 04/13/2024 3:15 PM OPERATIONS MGR Ancillary Procedure [facility] [address] [place] [address] Arrived 04/13/2024 1:40 PM OPERATIONS MGR Office Visit [facility] [address] [place] [address] Lindsay Toscano MD Derm Problem (Left buttock sore hard/red) 04/13/2024 10:43 AM OPERATIONS MGR - 04/13/2024 11:59 PM OPERATIONS MGR Hospital Encounter [facility] [address] [place] [address] Mayelin Skinner NP 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/2024 Travel 04/04/2024 11:20 AM OPERATIONS MGR Office Visit [facility] [address] [place] [address] Lindsay Toscano MD Hospital F/U (ANW, 03/10/2024 - 03/20/2024, Three Links, 03/20/2024 - 03/31/2024, triple bypass surgery) 04/04/2024 Travel 03/27/[address] [facility] [phone] Edilma Sutherland NP 03/10/2024 11:56 AM OPERATIONS MGR Anesthesia Event [facility] [address] [place] [address] Nataliya Linares MD Kushins, Stephen Isaac, MD 03/10/2024 10:45 AM OPERATIONS MGR - 03/10/2024 4:53 PM OPERATIONS MGR Surgery [facility] [address] [place] [address] Tonja Redman MD INTRAOP FANG PERFORMED BY DR. LINARES, TAKEDOWN OF TORRES, ENDOSCOPIC VEIN HARVEST OF LEFT SAPHENOUS VEIN, BYPASS CORONARY ARTERY X3, LEFT ATRIAL APPENDAGE LIGATION WITH ATRICLIP SIZE 40MM, PLACEMENT OF TEMPORARY VENTRICULAR PACING WIRES. 03/10/2024 9:21 AM OPERATIONS MGR - 03/20/2024 12:15 PM OPERATIONS MGR Hospital Encounter [facility] [address] [place] [address] Tonja Redman MD S/P CABG x 3 (Primary Dx); Type 2 diabetes mellitus without complication, without long-term current use of insulin (HC) Discharge Disposition: [facility] Facility 03/10/2024 Travel 03/03/2024 8:25 AM OPERATIONS MGR Office Visit [facility] [address] [place] [address] Lindsay Toscano MD Preoperative Exam (DOS: 03/10/2024, BYPASS CORONARY ARTERY W/EVH, LEFT ATRIAL APPENDAGE LIGATION, ANW, Dr. Tonja Redman) 03/03/2024 Travel 03/02/2024 11:30 AM OPERATIONS MGR Phone Office Visit [facility] [address] [facility] [address] [place] [phone] Olamide Randall PA Education (Pre-op Open Heart Surgery Education/) 02/27/2024 Travel 02/24/2024 Orders Only [facility] Scanner 1 scan: (1-Ord) [facility], CHEST 2 V, 02/24/2024 02/24/2024 Telephone [facility] [address] [place] [address] Hever Bill MD C5 TELEPHONE CONSULT 02/24/2024 Orders Only [facility] Scanner 1 scan: (1-Ord) ANA LILIA, CT HEAD/BRAIN WO CON, 02/24/2024 02/24/2024 Refill [facility] [address] [place] [address] Lindsay Toscano MD Refill Request (Eliquis) 02/18/2024 8:35 AM OPERATIONS MGR - 02/18/2024 11:59 PM OPERATIONS MGR Hospital Encounter [facility] [address] [place] [address] Seymour Collazo PA Leistner, Joseph S, ShavonT. (ARRT) Coronary artery disease, unspecified vessel or lesion type, unspecified whether angina present, unspecified whether umatilla tribe or transplanted heart; Shortness of breath; Other specified symptoms and signs involving the circulatory and respiratory systems 02/18/2024 Travel 02/16/2024 Refill [facility] [address] [place] [address] Brayden Velázquez MD Refill Request (Prednisone) 02/16/2024 Telephone [facility] [address] [place] [address] Lindsay Toscano MD Form 02/16/[address] [place] [address] Jose, JEFFERY Briggs Follow Up (post-angiogram, inquire about CV surgery appointment); Medication Management (start Imdur) 02/15/2024 1:40 PM OPERATIONS MGR Office Visit [facility] [address] [place] [address] Lindsay Toscano MD Post Procedure (ANW, 02/11/2024, angiogram ); Suture Removal (Stitches in lower left leg) 02/15/2024 Travel 02/14/2024 Orders Only [facility] [address] [place] [address] Seymour Collazo PA Pre-Op Imaging 02/11/2024 10:34 AM OPERATIONS MGR - 02/11/2024 6:51 PM OPERATIONS MGR Hospital Encounter [facility] [address] [place] [address] Aba Viramontes MD ASHD (arteriosclerotic heart disease) (Primary Dx); Cardiovascular symptoms; Exertional fatigue and dyspnea Discharge Disposition: Home Self Care 02/11/2024 Travel 02/07/2024 2:05 PM OPERATIONS MGR Office Visit [facility] [address] [place] [address] Lindsay Toscano MD Follow Up 02/06/2024 Travel 02/02/2024 9:00 AM OPERATIONS MGR Office Visit [facility] [address] [place] [address] Constance Colmenares MD Derm Problem 02/02/2024 Travel 02/01/2024 11:00 AM OPERATIONS MGR Orders Only [facility] [address] [facility] [address] [place] [address] Lab 02/01/2024 10:00 AM OPERATIONS MGR Office Visit [facility] [address] [facility] [address] [place] [address] Melanie Isbell PA Follow Up (2 WEEK F/U - LABS 01/27 DX: HFrEF CT scan yestereday. /Pt states feeling well today, mentioned no current cardiac symptoms. /Pt doesn't know his meds I take what's in my chart./) 01/31/2024 10:55 AM OPERATIONS MGR - 01/31/2024 11:59 PM OPERATIONS MGR Hospital Encounter [facility] [address] [place] [address] Melanie Isbell PA Heart failure, unspecified HF chronicity, unspecified heart failure type (HC); Abnormal stress test; Abnormal findings on diagnostic imaging of heart/coronary circulation 01/31/2024 Travel 01/28/2024 1:30 PM OPERATIONS MGR Orders Only [facility] [address] [place] [address] Lab, [place] [facility] 01/27/2024 Travel 01/24/2024 Telephone [facility] [address] [place] [address] Constance Colmenares MD Questions (appointment ) 01/21/2024 Telephone [facility] [address] [place], [place] [address] Melanie Isbell PA 01/21/2024 Telephone [facility] [address] [place] [address] Jose, JEFFERY Briggs Imaging (CTA) 01/21/2024 Orders Only [facility] [address] [place], [place] [address] Case, JEFFERY Briggs <No scans attached> 01/19/2024 Orders Only [facility] Scanner 1 scan: (1-Ord) [facility], 01/19/2024 01/17/2024 3:00 PM OPERATIONS MGR Ancillary Procedure [facility] [address] [place] [address] 01/17/2024 1:00 PM OPERATIONS MGR Office Visit [facility] [address] [place] [address] Wilian Valdez DO Consult (Back [...] on file Legal Sex Male 5:25 AM OPERATIONS MGR Gender Identity Not on file Sexual Orientation Not on file Obstetrics History Last Filed Vital Signs Vital Sign Reading Time Taken Comments Blood Pressure 113/72 04/14/2024 11:09 AM OPERATIONS MGR Pulse 89 04/14/2024 11:09 AM OPERATIONS MGR Temperature 36.8 C (98.2 F) 03/20/2024 7:48 AM OPERATIONS MGR Respiratory Rate 20 04/13/2024 3:00 PM OPERATIONS MGR Oxygen Saturation 99% 04/14/2024 11:09 AM OPERATIONS MGR Inhaled Oxygen Concentration - - Weight 99.3 kg (219 lb) 04/13/2024 1:29 PM OPERATIONS MGR Height 172.7 cm (5' 8) 04/13/2024 3:00 PM OPERATIONS MGR Body Mass Index 34.3 03/10/2024 10:42 AM OPERATIONS MGR Plan of Treatment Upcoming Encounters Date Type Department Care Team (Late st Contact Info) Description 04/17/2024 2:05 PM OPERATIONS MGR Office Visit [facility] [address] [place] [address] Lindsay Toscano MD [address] [place] [address] 04/19/2024 10:00 AM OPERATIONS MGR Appointment [address] [address] 04/21/2024 10:00 AM OPERATIONS MGR Appointment [address] [address] 04/24/2024 10:00 AM OPERATIONS MGR Appointment [address] [address] 04/25/2024 1:45 PM OPERATIONS MGR Appointment [facility] [address] [place] [address] Hillary Persaud, OT [address] [place] [address] 04/26/2024 9:00 AM OPERATIONS MGR Office Visit [facility] [address] [place] [address] [place] [address] [place] [address] 04/26/2024 10:00 AM OPERATIONS MGR Appointment [facility] [address] [place] [address] 04/28/2024 10:00 AM OPERATIONS MGR Appointment [facility] [address] [place] [address] 05/01/2024 10:00 AM OPERATIONS MGR Appointment [address] [address] 05/03/2024 10:00 AM OPERATIONS MGR Appointment [facility] [address] [facility] [place] [address] 05/05/2024 10:00 AM OPERATIONS MGR Appointment [facility] [address] [facility] [place] [address] 05/08/2024 10:00 AM CDT Appointment [facility] [address] [facility] [place] [address] 05/10/2024 10:00 AM CDT Appointment [facility] [address] [place] [address] 05/12/2024 10:00 AM CDT Appointment [facility] [address] [facility] [place] [address] 05/15/2024 10:00 AM CDT Appointment [facility] [address] [place] [address] 05/17/2024 10:00 AM CDT Appointment [facility] [address] [place] [address] 05/19/2024 10:00 AM CDT Appointment [facility] [address] [place] [address] 05/22/2024 10:00 AM CDT Appointment [facility] [address] [place] [address] 05/24/2024 10:00 AM CDT Appointment [facility] [address] [place] [address] 05/26/2024 10:00 AM CDT Appointment [facility] [address] [place] [address] 05/29/2024 10:00 AM CDT Appointment [facility] [address] [place] [address] 05/31/2024 10:00 AM CDT Appointment [facility] [address] [place] [address] 06/02/2024 Cardiac Device Check [facility] [phone] 06/02/2024 8:30 AM CDT Appointment [facility] [address] [place] [address] 06/02/2024 10:30 AM CDT Office Visit [facility] [address] [place] [address] Lindsay Toscano MD [address] [place] [address] 06/05/2024 10:00 AM CDT Appointment [facility] [address] [place] [address] 06/07/2024 10:00 AM CDT Appointment [address] [address] 06/09/2024 10:00 AM CDT Appointment [facility] [address] [place] [address] 06/12/2024 10:00 AM CDT Appointment [address] [address] 06/14/2024 10:00 AM CDT Appointment [address] [address] 06/16/2024 10:00 AM CDT Appointment [facility] [address] [place] [address] 06/19/2024 10:00 AM CDT Appointment [address] [address] 06/21/2024 10:00 AM CDT Appointment [facility] [address] [place] [address] 06/23/2024 10:00 AM CDT Appointment [facility] [address] [place] [address] 06/26/2024 10:00 AM CDT Appointment [facility] [address] [facility] [place] [address] 06/28/2024 10:00 AM CDT Appointment [facility] [address] [facility] [place] [address] 06/30/2024 10:00 AM CDT Appointment [facility] [address] [facility] [place] [address] 07/03/2024 10:00 AM CDT Appointment [facility] [address] [facility] [place] [address] 07/05/2024 10:00 AM CDT Appointment [facility] [address] [facility] [place] [address] 07/07/2024 10:00 AM CDT Appointment [facility] [address] [place] [address] Health Maintenance Due Date Last Done Comments [...] history exists Medical Devices Implanted Type Area Kick Plate Installer Device Identifier Shelf Expiration Date Model / Serial / Lot Occluder Meghan 40mm Atriclip Flex V Exclusion Sys - [id number] Implanted:Qty: 1 on 03/10/2024 by Tonja Redman MD at [facility] N/A: [employer] 12/30/2024 [id number] / / [id number] Description:AtriCure AtriCli p . SIZE: 40MM. REF: [id number]. LOT: [id number]. Implanted on 03/10/[address] Redman at [facility]. Procedures Procedure Name Priority Date/Time Associated Diagnosis Comments SCAN-ULTRASOUND REPORT 12:00 AM OPERATIONS MGR US LOWER EXTREMITY SOFT TISSUE LEFT STAT 04/13/2024 2:49 PM OPERATIONS MGR Leg swelling SCAN-CARDIAC REHABILITATION 04/13/2024 12:04 PM OPERATIONS MGR CBC WITH AUTO DIFFERENTIAL Routine 03/28/2024 8:03 AM OPERATIONS MGR Anemia, unspecified CBC WITH AUTO DIFFERENTIAL Routine 03/28/2024 8:03 AM OPERATIONS MGR Anemia, unspecified SCAN-CARDIAC STRIP 03/20/2024 8:42 AM OPERATIONS MGR GLUCOSE METER Timed 03/20/2024 7:49 AM OPERATIONS MGR HEMOGLOBIN Early AM 03/20/2024 6:42 AM OPERATIONS MGR BASIC METABOLIC PANEL Early AM 03/20/2024 6:42 AM OPERATIONS MGR SCAN-CARDIAC STRIP 03/20/2024 1:16 AM OPERATIONS MGR GLUCOSE METER Timed 03/19/2024 9:32 PM OPERATIONS MGR GLUCOSE METER Timed 03/19/2024 5:23 PM OPERATIONS MGR SCAN-CARDIAC STRIP 03/19/2024 12:24 PM OPERATIONS MGR GLUCOSE METER Timed 03/19/2024 11:31 AM OPERATIONS MGR GLUCOSE METER Timed 03/19/2024 8:26 AM OPERATIONS MGR HEMOGLOBIN Early AM 03/19/2024 5:52 AM OPERATIONS MGR SCAN-CARDIAC STRIP 03/19/2024 4:13 AM OPERATIONS MGR POTASSIUM Timed 03/18/2024 7:32 PM OPERATIONS MGR GLUCOSE METER Timed 03/18/2024 5:37 PM OPERATIONS MGR SCAN-CARDIAC STRIP 03/18/2024 4:00 PM OPERATIONS MGR GLUCOSE METER Timed 03/18/2024 7:27 AM OPERATIONS MGR HEMOGLOBIN Early AM 03/18/2024 6:33 AM OPERATIONS MGR BASIC METABOLIC PANEL Early AM 03/18/2024 6:33 AM OPERATIONS MGR GLUCOSE METER Timed 03/17/2024 5:32 PM OPERATIONS MGR SCAN-CARDIAC STRIP 03/17/2024 3:37 PM OPERATIONS MGR POTASSIUM Timed 03/17/2024 11:49 AM OPERATIONS MGR HEMOGLOBIN Today 03/17/2024 11:49 AM OPERATIONS MGR SCAN-CARDIAC STRIP 03/17/2024 9:40 AM OPERATIONS MGR HEMOGLOBIN Early AM 03/17/2024 6:56 AM OPERATIONS MGR BASIC METABOLIC PANEL Early AM 03/17/2024 6:56 AM OPERATIONS MGR GLUCOSE METER Timed 03/16/2024 9:17 PM OPERATIONS MGR GLUCOSE METER Timed 03/16/2024 4:17 PM OPERATIONS MGR GLUCOSE METER Timed 03/16/2024 12:35 PM OPERATIONS MGR SCAN-CARDIAC STRIP 03/16/2024 9:18 AM OPERATIONS MGR GLUCOSE METER Timed 03/16/2024 7:43 AM OPERATIONS MGR MAGNESIUM Early AM 03/16/2024 7:05 AM OPERATIONS MGR BASIC METABOLIC PANEL Early AM 03/16/2024 7:05 AM OPERATIONS MGR HEMOGLOBIN Early AM 03/16/2024 7:04 AM OPERATIONS MGR SCAN-CARDIAC STRIP 03/16/2024 1:39 AM OPERATIONS MGR SCAN-CARDIAC STRIP 03/15/2024 10:18 PM OPERATIONS MGR GLUCOSE METER Timed 03/15/2024 9:11 PM OPERATIONS MGR GLUCOSE METER Timed 03/15/2024 4:39 PM OPERATIONS MGR POTASSIUM Timed 03/15/2024 2:58 PM OPERATIONS MGR GLUCOSE METER Timed 03/15/2024 11:13 AM OPERATIONS MGR GLUCOSE METER Timed 03/15/2024 7:42 AM OPERATIONS MGR BASIC METABOLIC PANEL Early AM 03/15/2024 6:15 AM OPERATIONS MGR CBC W PLT NO DIFF Early AM 03/15/2024 6:15 AM OPERATIONS MGR MAGNESIUM Early AM 03/15/2024 6:15 AM OPERATIONS MGR SCAN-CARDIAC STRIP 03/15/2024 12:37 AM OPERATIONS MGR GLUCOSE METER Timed 03/14/2024 8:56 PM OPERATIONS MGR GLUCOSE METER Timed 03/14/2024 5:27 PM OPERATIONS MGR SCAN-CARDIAC STRIP 03/14/2024 3:10 PM OPERATIONS MGR GLUCOSE METER Timed 03/14/2024 12:43 PM OPERATIONS MGR GLUCOSE METER Timed 03/14/2024 9:29 AM OPERATIONS MGR POTASSIUM Early AM 03/14/2024 6:26 AM OPERATIONS MGR MAGNESIUM Early AM 03/14/2024 6:26 AM OPERATIONS MGR SCAN-CARDIAC STRIP 03/13/2024 10:58 PM OPERATIONS MGR GLUCOSE METER Timed 03/13/2024 9:21 PM OPERATIONS MGR GLUCOSE METER Timed 03/13/2024 5:18 PM OPERATIONS MGR EKG 12 LEAD STAT 03/13/2024 1:09 PM OPERATIONS MGR GLUCOSE METER Timed 03/13/2024 11:58 AM OPERATIONS MGR SCAN-CARDIAC STRIP 03/13/2024 9:12 AM OPERATIONS MGR PHOSPHORUS Early AM 03/13/2024 8:22 AM OPERATIONS MGR MAGNESIUM Early AM 03/13/2024 8:22 AM OPERATIONS MGR [facility] DRAW ONLY Early AM 03/13/2024 8:22 AM OPERATIONS MGR BASIC METABOLIC PANEL Early AM 03/13/2024 8:22 AM OPERATIONS MGR CBC W PLT NO DIFF Early AM 03/13/2024 8:22 AM OPERATIONS MGR PROTIME-INR Early AM 03/13/2024 8:22 AM OPERATIONS MGR XR CHEST 1 VIEW PORTABLE Routine 025 8:13 AM OPERATIONS MGR GLUCOSE METER Timed 03/13/2024 8:04 AM OPERATIONS MGR SCAN-CARDIAC STRIP 03/13/2024 1:29 AM OPERATIONS MGR GLUCOSE METER Timed 03/12/2024 10:11 PM OPERATIONS MGR GLUCOSE METER Timed 03/12/2024 5:31 PM OPERATIONS MGR [facility] DRAW ONLY STAT 03/12/2024 3:56 PM OPERATIONS MGR SODIUM STAT 03/12/2024 3:56 PM OPERATIONS MGR HEMOGLOBIN STAT 03/12/2024 3:56 PM OPERATIONS MGR XR CHEST 1 VIEW PORTABLE STAT 025 12:58 PM OPERATIONS MGR GLUCOSE METER Timed 03/12/2024 12:44 PM OPERATIONS MGR URINALYSIS MICROSCOPIC Timed 11:35 AM OPERATIONS MGR UA W/ SEDIMENT EXAM REFLEXED PER CRITERIA Today 03/12/2024 11:35 AM OPERATIONS MGR TRANSFUSE RBC (NURSE COMMUNICATION ORDER) STAT 03/12/2024 11:00 AM OPERATIONS MGR RBC W/O TYPE & SCREEN STAT 03/12/2024 10:34 AM OPERATIONS MGR XR CHEST 1 VIEW PORTABLE STAT 025 10:12 AM OPERATIONS MGR GLUCOSE METER Timed 03/12/2024 9:02 AM OPERATIONS MGR O2 SATURATION,MEASURED Early AM 3:35 AM OPERATIONS MGR LACTATE ARTERIAL Early AM 03/12/2024 3:35 AM OPERATIONS MGR CBC W PLT NO DIFF Early AM 03/12/2024 3:35 AM OPERATIONS MGR [facility] DRAW ONLY Early AM 03/12/2024 3:35 AM OPERATIONS MGR COMP METABOLIC PANEL Early AM 03/12/2024 3:35 AM OPERATIONS MGR AMMONIA Early AM 03/12/2024 3:35 AM OPERATIONS MGR MAGNESIUM Early AM 03/12/2024 3:35 AM OPERATIONS MGR PROTIME-INR Early AM 03/12/2024 3:35 AM OPERATIONS MGR GLUCOSE METER Timed 03/11/2024 10:09 PM OPERATIONS MGR GLUCOSE METER Timed 03/11/2024 5:56 PM OPERATIONS MGR GLUCOSE METER Timed 03/11/2024 4:08 PM OPERATIONS MGR O2 SATURATION,MEASURED STAT 3:15 PM OPERATIONS MGR LACTATE ARTERIAL STAT 03/11/2024 3:15 PM OPERATIONS MGR GLUCOSE METER Timed 03/11/2024 1:23 PM OPERATIONS MGR EKG 12 LEAD Routine 03/11/2024 1:10 PM OPERATIONS MGR GLUCOSE METER Timed 03/11/2024 11:59 AM OPERATIONS MGR [facility] DRAW ONLY Today 03/11/2024 11:58 AM OPERATIONS MGR AMMONIA STAT 03/11/2024 11:58 AM OPERATIONS MGR POTASSIUM Timed 03/11/2024 10:31 AM OPERATIONS MGR GLUCOSE METER Timed 03/11/2024 10:28 AM OPERATIONS MGR EKG 12 LEAD Early AM 03/11/2024 8:02 AM OPERATIONS MGR GLUCOSE METER Timed 03/11/2024 6:17 AM OPERATIONS MGR GLUCOSE METER Timed 03/11/2024 4:56 AM OPERATIONS MGR XR CHEST 1 VIEW PORTABLE Routine 025 4:21 AM OPERATIONS MGR GLUCOSE METER Timed 03/11/2024 3:55 AM OPERATIONS MGR LACTATE ARTERIAL Early AM 03/11/2024 3:55 AM OPERATIONS MGR PLATELET COUNT Early AM 03/11/2024 3:55 AM OPERATIONS MGR MAGNESIUM Early AM 03/11/2024 3:55 AM OPERATIONS MGR [facility] DRAW ONLY Early AM 03/11/2024 3:55 AM OPERATIONS MGR PROTIME-INR Early AM 03/11/2024 3:55 AM OPERATIONS MGR HEMOGLOBIN Early AM 03/11/2024 3:55 AM OPERATIONS MGR BASIC METABOLIC PANEL Early AM 03/11/2024 3:55 AM OPERATIONS MGR GLUCOSE METER Timed 03/11/2024 2:01 AM OPERATIONS MGR GLUCOSE METER Timed 03/11/2024 12:53 AM OPERATIONS MGR ARTERIAL BLOOD GAS STAT 03/11/2024 12:32 AM OPERATIONS MGR GLUCOSE METER Timed 03/10/2024 11:58 PM OPERATIONS MGR GLUCOSE METER Timed 03/10/2024 11:05 PM OPERATIONS MGR GLUCOSE METER Timed 03/10/2024 9:21 PM OPERATIONS MGR GLUCOSE METER Timed 03/10/2024 8:32 PM OPERATIONS MGR GLUCOSE METER Timed 03/10/2024 7:26 PM OPERATIONS MGR EKG 12 LEAD STAT 03/10/2024 7:08 PM OPERATIONS MGR GLUCOSE METER Timed 03/10/2024 6:47 PM OPERATIONS MGR XR CHEST 1 VIEW PORTABLE STAT 025 6:30 PM OPERATIONS MGR CREATININE DAVID 03/10/2024 5:47 PM OPERATIONS MGR [facility] DRAW ONLY DAVID 03/10/2024 5:47 PM OPERATIONS MGR FIBRINOGEN,QUANTITATIVE STAT 03/10/19 25 5:47 PM OPERATIONS MGR THROMBIN TIME STAT 03/10/2024 5:47 PM OPERATIONS MGR PROTIME-INR STAT 03/10/2024 5:47 PM OPERATIONS MGR APTT STAT 03/10/2024 5:47 PM OPERATIONS MGR PLATELET COUNT STAT 03/10/2024 5:47 PM OPERATIONS MGR MAGNESIUM STAT 03/10/2024 5:47 PM OPERATIONS MGR POTASSIUM STAT 03/10/2024 5:47 PM OPERATIONS MGR HEMOGLOBIN STAT 03/10/2024 5:47 PM OPERATIONS MGR ARTERIAL BLOOD GAS STAT 03/10/2024 5:47 PM OPERATIONS MGR GLUCOSE METER Timed 03/10/2024 5:46 PM OPERATIONS MGR TRANSFUSE CRYOPRECIPITATE (NURSE COMMUNICATION ORDER) Today 03/10/2024 4:56 PM OPERATIONS MGR TRANSFUSE PLT (NURSE COMMUNICATION ORDER) Today 03/10/2024 4:32 PM OPERATIONS MGR TRANSFUSE PLT (NURSE COMMUNICATION ORDER) Today 03/10/2024 4:32 PM OPERATIONS MGR TRANSFUSE PLASMA (NURSE COMMUNICATION ORDER) Today 03/10/2024 4:29 PM OPERATIONS MGR PLATELET ORDER STAT 03/10/2024 4:18 PM OPERATIONS MGR PLATELET ORDER STAT 03/10/2024 4:18 PM OPERATIONS MGR PLASMA ORDER STAT 03/10/2024 4:18 PM OPERATIONS MGR CRYOPRECIPITATE ORDER STAT 03/10/2024 4:18 PM OPERATIONS MGR CRYOPRECIPITATE EA UNIT STAT 03/10/19 4:15 PM OPERATIONS MGR CRYOPRECIPITATE EA UNIT STAT 03/10/19 4:15 PM OPERATIONS MGR PLATELET EA UNIT STAT 03/10/2024 4:15 PM OPERATIONS MGR PLATELET EA UNIT STAT 03/10/2024 4:15 PM OPERATIONS MGR PLASMA SNGL DON FFPEA UNIT STAT 03/10/2024 4:15 PM OPERATIONS MGR PLASMA SNGL DON FFPEA UNIT STAT 03/10/2024 4:15 PM OPERATIONS MGR TRANSFUSE RBC (NURSE COMMUNICATION ORDER) Today 03/10/2024 3:46 PM OPERATIONS MGR CARDIAC THROMBOELASTOGRAPHY STAT 03/10/2024 3:35 PM OPERATIONS MGR FIBRINOGEN,QUANTITATIVE STAT 03/10/19 3:35 PM OPERATIONS MGR PLATELET COUNT STAT 03/10/2024 3:35 PM OPERATIONS MGR RED BLOOD CELLS EA UNIT STAT 03/10/19 3:30 PM OPERATIONS MGR RED BLOOD CELLS EA UNIT STAT 03/10/19 3:30 PM OPERATIONS MGR RBC W/O TYPE & SCREEN STAT 03/10/2024 3:27 PM OPERATIONS MGR FANG Routine 03/10/2024 3:10 PM OPERATIONS MGR HCHG CATH INFUSION PR70 Routine 03/10/19 3:10 PM OPERATIONS MGR HCHG KIT PR5 Routine 03/10/2024 3:10 PM OPERATIONS MGR AHC AN INTRODUCER 2 LUMEN PERFORMABLE Routine 03/10/2024 3:10 PM OPERATIONS MGR HCHG DRSG PR1 Routine 03/10/2024 3:10 PM OPERATIONS MGR HCHG DRSG PR5 Routine 03/10/2024 3:10 PM OPERATIONS MGR HCHG TUBING PR5 Routine 03/10/2024 3:10 PM OPERATIONS MGR HC KIT MONITORING PR5 Routine 03/10/19 3:10 PM OPERATIONS MGR HCHG ADPTR PR1 Routine 03/10/2024 3:10 PM OPERATIONS MGR HCHG CATH INFUSION PR30 Routine 03/10/19 25 3:10 PM OPERATIONS MGR HCHG TUBING PR5 Routine 03/10/2024 3:10 PM OPERATIONS MGR HCHG ANES US GUIDE FOR VASC ACCESS Routine 03/10/2024 3:10 PM OPERATIONS MGR HCHG STOPCOCK PR5 Routine 03/10/2024 3:10 PM OPERATIONS MGR CVC TRIPLE LUMEN Routine 03/10/2024 3:10 PM OPERATIONS MGR HCHG KIT PR5 Routine 03/10/2024 3:09 PM OPERATIONS MGR HCHG DRSG PR5 Routine 03/10/2024 3:09 PM OPERATIONS MGR HCHG DRSG PR1 Routine 03/10/2024 3:09 PM OPERATIONS MGR HCHG TUBING PR20 Routine 03/10/2024 3:09 PM OPERATIONS MGR HCHG TUBING PR1 Routine 03/10/2024 3:09 PM OPERATIONS MGR HCHG ANES ARTERIAL CATH FOR SAMPLE MONITOR TRANS Routine 03/10/2024 3:09 PM OPERATIONS MGR HCHG ANES US GUIDE FOR VASC ACCESS Routine 03/10/2024 3:09 PM OPERATIONS MGR HCHG CATH PR5 Routine 03/10/2024 3:09 PM OPERATIONS MGR ECHO FANG INTRAOPERATIVE Routine 03/10/19 2:42 PM OPERATIONS MGR ENDOTRACHEAL TUBE Routine 03/10/2024 1:18 PM OPERATIONS MGR ENDOTRACHEAL TUBE Routine 03/10/2024 1:18 PM OPERATIONS MGR BYPASS CORONARY ARTERY 01 2024 11:31 AM OPERATIONS MGR CAD Case Notes BYPASS CORONARY ARTERY W/EVH, LEFT ATRIAL APPENDAGE LIGATION TYPE & SCREEN Preop 03/10/2024 10:41 AM OPERATIONS MGR PROTIME-INR Preop 03/10/2024 10:41 AM OPERATIONS MGR CBC W PLT NO DIFF Preop 03/10/2024 10:41 AM OPERATIONS MGR GLUCOSE, FASTING Preop 03/10/2024 10:41 AM OPERATIONS MGR EXTRA TUBE GOLD/SST Today 03/10/2024 10:40 AM OPERATIONS MGR BEDSIDE US STUDY ARCHIVE Routine 025 10:06 AM OPERATIONS MGR SCAN-OPERATIVE/PROCEDURE REPORT 03/10/2024 12:00 AM OPERATIONS MGR HEMOGLOBIN A1C MONITORING (POCT) Routine 03/03/2024 8:51 AM OPERATIONS MGR Type 2 diabetes mellitus without complication, without long-term current use of insulin (HC) CBC W PLT NO DIFF Routine 03/03/2024 8:50 AM OPERATIONS MGR Preop examination BASIC METABOLIC PANEL Routine 03/03/2024 8:50 AM OPERATIONS MGR Preop examination SCAN-RADIOLOGY REPORT 02/24/2024 12:00 AM OPERATIONS MGR SCAN-CT INTERPRETATION 12:00 AM OPERATIONS MGR US CAROTID DUPLEX BILATERAL STAT 02/18/2024 9:29 AM OPERATIONS MGR Coronary artery disease, unspecified vessel or lesion type, unspecified whether angina present, unspecified whether [place] tribe or transplanted heart Other specified symptoms and signs involving the circulatory and respiratory systems US VEIN MAPPING LOWER EXTREMITY BILATERAL STAT 02/18/2024 9:29 AM OPERATIONS MGR Coronary artery disease, unspecified vessel or lesion type, unspecified whether angina present, unspecified whether [place] tribe or transplanted heart Shortness of breath BASIC METABOLIC PANEL Routine 02/15/2024 2:17 PM OPERATIONS MGR HFrEF (heart failure with reduced ejection fraction) (HC) GLUCOSE METER Timed 02/11/2024 4:04 PM OPERATIONS MGR CVL CORONARY ANGIOGRAM POSS PCI Routine 02/11/2024 2:21 PM OPERATIONS MGR Cardiovascular symptoms EKG 12 LEAD DAVID 02/11/2024 12:17 PM OPERATIONS MGR CBC W PLT NO DIFF DAVID 02/11/2024 12:08 PM OPERATIONS MGR BASIC METABOLIC PANEL DAVID 02/11/2024 12:08 PM OPERATIONS MGR PATH TISSUE EXAM Routine 02/02/2024 9:50 AM OPERATIONS MGR Rash and other nonspecific skin eruption AST (SGOT) Routine 02/01/2024 11:44 AM OPERATIONS MGR HFrEF (heart failure with reduced ejection fraction) (HC) Abnormal cardiac CT angiography SOB (shortness of breath) ALT (SGPT) Routine 02/01/2024 11:44 AM OPERATIONS MGR HFrEF (heart failure with reduced ejection fraction) (HC) Abnormal cardiac CT angiography SOB (shortness of breath) CBC W PLT NO DIFF Routine 02/01/2024 11:44 AM OPERATIONS MGR HFrEF (heart failure with reduced ejection fraction) (HC) Abnormal cardiac CT angiography SOB (shortness of breath) LIPID PANEL W REFLEX MEASURED LDL Routine 02/01/2024 11:44 AM OPERATIONS MGR HFrEF (heart failure with reduced ejection fraction) (HC) Abnormal cardiac CT angiography SOB (shortness of breath) CTA FRACTIONAL FLOW RESERVE DAVID 01/31/2024 12:27 PM OPERATIONS MGR Heart failure, unspecified HF chronicity, unspecified heart failure type (HC) Abnormal stress test Abnormal findings on diagnostic imaging of heart/coronary circulation CT CARDIAC CORONARY ARTERIES RAD DUAL READ DAVID 01/31/2024 12:27 PM OPERATIONS MGR Heart failure, unspecified HF chronicity, unspecified heart failure type (HC) Abnormal stress test PACER EDWARD DUAL CHAMBER W REPROG Routine 01/31/2024 11:00 AM OPERATIONS MGR PRO-BNP Routine 01/28/2024 1:30 PM OPERATIONS MGR HFrEF (heart failure with reduced ejection fraction) (HC) BASIC METABOLIC PANEL Routine 01/28/2024 1:30 PM OPERATIONS MGR HFrEF (heart failure with reduced ejection fraction) (HC) SCAN-EYE EXAM 01/19/2024 12:00 AM OPERATIONS MGR ECHO TTE COMPLETE WO CONTRAST DAVID 01/17/2024 3:49 PM OPERATIONS MGR HFrEF (heart failure with reduced ejection fraction) (HC) from Last 3 Months Results * SCAN-ULTRASOUND REPORT (04/14/2024 12:00 AM OPERATIONS MGR) Anatomical Region Laterality Modality Other us Scanner OTHER Final Result * US LOWER EXTREMITY SOFT TISSUE LEFT (04/13/2024 2:49 PM OPERATIONS MGR) Anatomical Region Laterality Modality ARM R Ultrasound 04/13/2024 3:00 PM OPERATIONS MGR Narrative 04/13/2024 3:00 PM OPERATIONS MGR For Patients: As a result of the [...] Result * SCAN-CARDIAC REHABILITATION (04/13/2024 12:04 PM OPERATIONS MGR) us Scanner OTHER Final Result * (ABNORMAL) CBC WITH AUTO DIFFERENTIAL (03/28/2024 8:03 AM OPERATIONS MGR) WHITE BLOOD COUNT 7.8 4.5 - 11.0 thou/cu mm 03/28/2024 8:48 AM [facility] RED BLOOD COUNT 3.41(L) 4.30 - 5.90 mil/cu mm 03/28/2024 8:48 AM [facility] HEMOGLOBIN 9.9(L) 13.5 - 17.5 g/dL 03/28/2024 8:48 AM [facility] HEMATOCRIT 33.1(L) 37.0 - 53.0 % 03/28/2024 8:48 AM [facility] MCV 97 80 - 100 fL 03/28/2024 8:48 AM [facility] MCH 29.0 26.0 - 34.0 pg 03/28/2024 8:48 AM [facility] MCHC 29.9(L) 32.0 - 36.0 g/dL 03/28/2024 8:48 AM [facility] RDW 14.6 11.5 - 15.5 % 03/28/2024 8:48 AM [facility] PLATELET COUNT 324 140 - 440 thou/cu mm 03/28/2024 8:48 AM [facility] MPV 10.2 6.5 - 11.0 fL 03/28/2024 8:48 AM [facility] % NEUT 68.9 % 03/28/2024 8:48 AM [facility] % LYMPH 17.7 % 03/28/2024 8:48 AM [facility] % MONO 8.9 % 03/28/2024 8:48 AM [facility] % EOS 4.4 % 03/28/2024 8:48 AM [facility] % BASO 0.1 % 03/28/2024 8:48 AM [facility] ABSOLUTE NEUTROPHILS 5.4 1.7 - 7.0 thou/cu mm 03/28/2024 8:48 AM [facility] ABSOLUTE LYMPHOCYTES 1.4 0.9 - 2.9 thou/cu mm 03/28/2024 8:48 AM [facility] ABSOLUTE MONOCYTES 0.7 <0.9 thou/cu mm 03/28/2024 8:48 AM [facility] ABSOLUTE EOSINOPHILS 0.3 <0.5 thou/cu mm 03/28/2024 8:48 AM [facility] ABSOLUTE BASOPHILS 0.0 <0.3 thou/cu mm 03/28/2024 8:48 AM [facility] Blood BLOOD SPECIMEN / Unknown Butterfly / Unknown 03/28/2024 8:03 AM [facility] 03/28/2024 8:35 AM [facility] us Edilma Sutherland NP HEMATOLOGY Final Resul t [facility] [address] [place] [address] * SCAN-CARDIAC STRIP (03/20/2024 8:42 AM OPERATIONS MGR) Scanner OTHER Final Result * (ABNORMAL) GLUCOSE METER (03/20/2024 7:49 AM OPERATIONS MGR) Only the most recent of47 resultswithin the time period is included. GLUCOSE METER 164(H) 65 - 100 mg/dL 03/20/2024 7:50 AM OPERATIONS MGR [facility] Blood BLOOD SPECIMEN / Unknown 03/20/2024 7:49 AM OPERATIONS MGR 03/20/2024 7:50 AM OPERATIONS MGR Tonja Redman MD CHEMISTRY Final Res ult Performing Organization Address City/[facility]/ZIP Co de Phone Number [facility] [address] [place] [address], * (ABNORMAL) HEMOGLOBIN (03/20/2024 6:42 AM OPERATIONS MGR) Only the most recent of9 resultswithin the time period is included. HEMOGLOBIN 10.1(L) 13.5 - 17.5 g/dL 03/20/2024 7:07 AM OPERATIONS MGR [facility] MCV 93 80 - 100 fL 03/20/2024 7:07 AM OPERATIONS MGR [facility] Blood BLOOD SPECIMEN / Unknown Venipuncture / Unknown 03/20/2024 6:42 AM OPERATIONS MGR 03/20/2024 6:53 AM OPERATIONS MGR Anila Palacios NP HEMATOLOGY Final R esult Performing Organization Address City/[facility]/ZIP Co de Phone Number [facility] [address] [place] [address], * (ABNORMAL) BASIC METABOLIC PANEL (03/20/2024 6:42 AM OPERATIONS MGR) Only the most recent of11 resultswithin the time period is included. SODIUM 138 136 - 145 mmol/L 03/20/2024 7:17 AM OPERATIONS MGR [facility] POTASSIUM 3.8 3.5 - 5.1 mmol/L 03/20/2024 7:17 AM [facility] CHLORIDE 101 98 - 107 mmol/L 03/20/2024 7:17 AM [facility] CO2,TOTAL 24 22 - 29 mmol/L 03/20/2024 7:17 AM [facility] ANION GAP 13 5 - 18 03/20/2024 7:17 AM [facility] GLUCOSE 172(H) 70 - 99 mg/dL 03/20/2024 7:17 AM [facility] CALCIUM 8.9 8.8 - 10.4 mg/dL 03/20/2024 7:17 AM [facility] Comment: Reference ranges for this test were updated on 01/04/2024 to reflect our healthy population more accurately. Reference range changes are not retroactively applied to results, but previous results using the same methodology can be interpreted in the context of the new reference range. BUN 26(H) 8 - 23 mg/dL 03/20/2024 7:17 AM [facility] CREATININE 1.10 0.70 - 1.20 mg/dL 03/20/2024 7:17 AM [facility] BUN/CREAT RATIO 24(H) 10 - 20 7:17 AM [facility] eGFR 65(L) >90 mL/min/1. 73m2 03/20/2024 7:17 AM [facility] Comment:As of 2021, eG FR is calculated by the CKD-EPI creatinine equation without race adjustment. eGFR can be influenced by muscle mass, exercise, and diet. The reported eGFR is an estimation only and is only applicable if the renal function is stable. Blood BLOOD SPECIMEN / Unknown Venipuncture / Unknown 03/20/2024 6:42 AM OPERATIONS MGR 03/20/2024 6:53 AM [facility] Anila Palacios NP CHEMISTRY Final R esult [facility] [address] [place] [id number], [place] * SCAN-CARDIAC STRIP (03/20/2024 1:16 AM OPERATIONS MGR) us Scanner OTHER Final Result * SCAN-CARDIAC STRIP (03/19/2024 12:24 PM OPERATIONS MGR) us Scanner OTHER Final Result * SCAN-CARDIAC STRIP (03/19/2024 4:13 AM OPERATIONS MGR) us Scanner OTHER Final Result * POTASSIUM (03/18/2024 7:32 PM OPERATIONS MGR) Only the most recent of6 resultswithin the time period is included. POTASSIUM 4.1 3.5 - 5.1 mmol/L 03/18/2024 7:56 PM OPERATIONS MGR [facility] Blood BLOOD SPECIMEN / Unknown Venipuncture / Unknown 03/18/2024 7:32 PM OPERATIONS MGR 03/18/2024 7:38 PM OPERATIONS MGR us Tonja Redman MD CHEMISTRY Final Res ult Performing Organization Address [facility] Co de Phone Number [facility] [address] [address], [place] * SCAN-CARDIAC STRIP (03/18/2024 4:00 PM OPERATIONS MGR) us Scanner OTHER Final Result * SCAN-CARDIAC STRIP (03/17/2024 3:37 PM OPERATIONS MGR) us Scanner OTHER Final Result * SCAN-CARDIAC STRIP (03/17/2024 9:40 AM OPERATIONS MGR) us Scanner OTHER Final Result * SCAN-CARDIAC STRIP (03/16/2024 9:18 AM OPERATIONS MGR) us Scanner OTHER Final Result * MAGNESIUM (03/16/2024 7:05 AM OPERATIONS MGR) Only the most recent of7 resultswithin the time period is included. Pathologist [facility] MAGNESIUM 2.1 1.6 - 2.4 mg/dL 03/16/2024 7:46 AM [facility] Blood BLOOD SPECIMEN / Unknown Venipuncture / Unknown 03/16/2024 7:05 AM OPERATIONS MGR 03/16/2024 7:11 AM OPERATIONS MGR us Tonja Redman MD CHEMISTRY Final Res ult [facility] [address] [place] [address], [place] * SCAN-CARDIAC STRIP (03/16/2024 1:39 AM OPERATIONS MGR) us Scanner OTHER Final Result * SCAN-CARDIAC STRIP (03/15/2024 10:18 PM OPERATIONS MGR) us Scanner OTHER Final Result * (ABNORMAL) CBC W PLT NO DIFF (03/15/2024 6:15 AM OPERATIONS MGR) Only the most recent of7 resultswithin the time period is included. [facility] WHITE BLOOD COUNT 10.0 4.5 - 11.0 thou/cu mm 03/15/2024 6:35 AM OPERATIONS MGR [facility] RED BLOOD COUNT 2.98(L) 4.30 - 5.90 mil/cu mm 03/15/2024 6:35 AM [facility] HEMOGLOBIN 9.1(L) 13.5 - 17.5 g/dL 03/15/2024 6:35 AM [facility] HEMATOCRIT 28.2(L) 37.0 - 53.0 % 03/15/2024 6:35 AM [facility] MCV 95 80 - 100 fL 03/15/2024 6:35 AM [facility] MCH 30.5 26.0 - 34.0 pg 03/15/2024 6:35 AM [facility] MCHC 32.3 32.0 - 36.0 g/dL 03/15/2024 6:35 AM OPERATIONS MGR [facility] RDW 14.1 11.5 - 15.5 % 03/15/2024 6:35 AM OPERATIONS MGR [facility] PLATELET COUNT 162 140 - 440 thou/cu mm 03/15/2024 6:35 AM [facility] MPV 10.9 6.5 - 11.0 fL 03/15/2024 6:35 AM OPERATIONS MGR [facility] NRBC 0.0 % 03/15/2024 6:35 AM OPERATIONS MGR [facility] ABS NRBC 0.0 thou /cu mm 03/15/2024 6:35 AM [facility] Blood BLOOD SPECIMEN / Unknown Venipuncture / Unknown 03/15/2024 6:15 AM OPERATIONS MGR 03/15/2024 6:30 AM OPERATIONS MGR us Mayelin Skinner NP HEMATOLOGY Final Result [facility] [address] [place] [address], * SCAN-CARDIAC STRIP (03/15/2024 12:37 AM OPERATIONS MGR) us Scanner OTHER Final Result * SCAN-CARDIAC STRIP (03/14/2024 3:10 PM OPERATIONS MGR) us Scanner OTHER Final Result * SCAN-CARDIAC STRIP (03/13/2024 10:58 PM OPERATIONS MGR) us Scanner OTHER Final Result * EKG 12 LEAD (03/13/2024 1:09 PM OPERATIONS MGR) Only the most recent of5 resultswithin the [...] NOW QTc 468 ms BEYOND NOW P [place] degrees BEYOND NOW R [place] 47 degrees BEYOND NOW T [place] 0 degrees BEYOND NOW 03/13/2024 1:09 PM OPERATIONS MGR 03/14/2024 5:29 PM OPERATIONS MGR us Mayelin Skinner NP EKG ORD Final Result Performing Organization Address [facility] de Phone Number BEYOND NOW [place], [place] * SCAN-CARDIAC STRIP (03/13/2024 9:12 AM OPERATIONS MGR) us Scanner OTHER Final Result * Protime-INR (03/13/2024 8:22 AM OPERATIONS MGR) Only the most recent of5 resultswithin the time period is included. INR 1.0 <1.3 03/13/2024 8:49 AM OPERATIONS MGR [facility] [employer] LABORATORY-[facility] PROTIME 11.9 10.6 - 12.4 sec 03/13/2024 8:49 AM OPERATIONS MGR [facility] [employer] LABORATORY-[facility] Blood BLOOD SPECIMEN / Unknown Venipuncture / Unknown 03/13/2024 8:22 AM OPERATIONS MGR 03/13/2024 8:33 AM OPERATIONS MGR Narrative [facility]-CENTRAL LAB[facility]ATORY - 03/13/2024 8:49 AM OPERATIONS MGR Therapeutic Range 2.0-3.0 for most anticoagulated patients [...] HEMATOLOGY Final Res ult Performing Organization Address [facility] Co de Phone Number [facility]-CENTRAL LAB[facility]ATORY [address] [place] [address], [place] * PHOSPHORUS (03/13/2024 8:22 AM OPERATIONS MGR) PHOSPHORUS 3.1 2.5 - 4.5 mg/dL 03/13/2024 9:06 AM OPERATIONS MGR [facility] Blood BLOOD SPECIMEN / Unknown Venipuncture / Unknown 03/13/2024 8:22 AM OPERATIONS MGR 03/13/2024 8:33 AM OPERATIONS MGR Cain Monet MD CHEMISTRY Maia l Result [facility] [address] [place] [id number], [place] * CALCIUM IONIZED HOSPITAL DRAW ONLY (03/13/2024 8:22 AM OPERATIONS MGR) Only the most recent of6 resultswithin the time period is included. CALCIUM,IONIZE D 1.23 1.15 - 1.27 mmol/L 03/13/2024 8:37 AM OPERATIONS MGR [facility] Blood BLOOD SPECIMEN / Unknown Venipuncture / Unknown 03/13/2024 8:22 AM OPERATIONS MGR 03/13/2024 8:33 AM OPERATIONS MGR Cain Monet MD CHEMISTRY Maia l Result Performing Organization Address City/[facility]/ZIP Co de Phone Number [facility] [address] [address], [place] * XR CHEST 1 VIEW PORTABLE (03/13/2024 8:13 AM OPERATIONS MGR) Only the most recent of5 resultswithin the time period is included. Anatomical Region Laterality Modality HEART, THORAX, CHEST Digital Rad iography 03/13/2024 9:00 AM OPERATIONS MGR Impressions 03/13/2024 9:00 AM OPERATIONS MGR 1. Resolved left pneumothorax. 2. Small bilateral pleural effusions. Dictated by Kristen Pelayo MD @ Mar 13 2024 9:00AM (Electronically Signed) [email or web address] Narrative 03/13/2024 9:00 AM OPERATIONS MGR For Patients: As a result of the [...] @ Mar 13 2024 9:00AM (Electronically Signed) [email or web address] us Cain Monet MD GENERAL IMAGING Maia l Result * SCAN-CARDIAC STRIP (03/13/2024 1:29 AM OPERATIONS MGR) us Scanner OTHER Final Result * TRANSFUSE RBC (NURSE COMMUNICATION ORDER) (03/12/2024 4:55 PM OPERATIONS MGR) Blood BLOOD SPECIMEN / Unknown Kristen GIL NURSING BLOOD BANK Final Result * (ABNORMAL) SODIUM (03/12/2024 3:56 PM OPERATIONS MGR) SODIUM 131(L) 136 - 145 mmol/L 03/12/2024 4:19 PM OPERATIONS MGR [facility] Blood BLOOD SPECIMEN / Unknown Non-Lab Venipuncture / Unknown 03/12/2024 3:56 PM OPERATIONS MGR 03/12/2024 4:01 PM OPERATIONS MGR Cain Monet MD CHEMISTRY Maia l Result Performing Organization Address [facility]/ZIP Co de Phone Number [facility] [address] [place] [id number], * (ABNORMAL) URINALYSIS MICROSCOPIC (03/12/2024 11:35 AM OPERATIONS MGR) RBC 11-25(A) 0-2, None Seen /HPF 03/12/2024 12:42 PM OPERATIONS MGR [facility] WBC 6-10(A) 0-2, 3-5, None Seen /HPF 03/12/2024 12:42 PM OPERATIONS MGR [facility] BACTERIA Rare None Seen, Rare, Few Bacteria/ HPF 03/12/2024 12:42 PM OPERATIONS MGR [facility] EPITHELIAL CELLS None Seen None Seen, Few Epi/HPF 03/12/2024 12:42 PM OPERATIONS MGR [facility] HYALINE CASTS 11-25(A) 0-2, 3-5 /LPF 03/12/2024 12:42 PM OPERATIONS MGR [facility] GRANULAR CASTS 0-2(A) (none) /LPF 03/12/2024 12:42 PM OPERATIONS MGR [facility] Urine URINE SPECIMEN / Unknown Non-Blood / Unknown 03/12/2024 11:35 AM OPERATIONS MGR 03/12/2024 12:19 PM OPERATIONS MGR Kristen GIL URINE Final Re sult Performing Organization Address City/[facility]/ZIP Co de Phone Number [facility] [address] [place] [id number], [place] * (ABNORMAL) UA W/ SEDIMENT EXAM REFLEXED PER CRITERIA (03/12/2024 11:35 AM OPERATIONS MGR) COLOR Yellow Yellow Color 03/12/2024 12:42 PM [facility] CLARITY Cloudy(A) Clear Clarity 03/12/2024 12:42 PM OPERATIONS MGR [facility] SPECIFIC GRAVITY,URINE >=1.030(A) 1.010, 1.015, 1.020, 1.025 03/12/2024 12:42 PM [facility] PH,URINE 5.0(A) 6.0, 7.0, 8.0, 5.5, 6.5, 7.5, 8.5 03/12/2024 12:42 PM [facility] UROBILINOGEN, QUALITATIVE Normal Normal EU/dl 03/12/2024 12:42 PM [facility] PROTEIN, URINE 30(A) Negative mg/dL 03/12/2024 12:42 PM [facility] GLUCOSE, URINE >=1000(A) Negative mg/dL 03/12/2024 12:42 PM OPERATIONS MGR [facility] KETONES,URINE 15(A) Negative mg/dL 03/12/2024 12:42 PM [facility] BILIRUBIN,URI NE Negative Negative 03/12/2024 12:42 PM [facility] OCCULT BLOOD,URINE Moderate(A) Negative 03/12/2024 12:42 PM [facility] NITRITE Negative Negative 03/12/2024 12:42 PM OPERATIONS MGR [facility] LEUKOCYTE ESTERASE Negative Negative 03/12/2024 12:42 PM [facility] Urine URINE SPECIMEN / Unknown Non-Blood / Unknown 03/12/2024 11:35 AM OPERATIONS MGR 03/12/2024 12:19 PM OPERATIONS MGR Kristen GIL URINE Final Re sult Performing Organization Address City/[facility]/ZIP Co de Phone Number [facility] [address] [address], [place] * RBC W/O TYPE & SCREEN (03/12/2024 10:34 AM OPERATIONS MGR) Only the most recent of2 resultswithin the time period is included. QUANTITY 1 03/12/2024 10:34 AM OPERATIONS MGR [facility] BLOOD BANK Blood BLOOD SPECIMEN / Unknown 03/12/2024 9:12 AM OPERATIONS MGR Kristen Ramírez PA BLOOD BANK Final Re sult Performing Organization Address [facility] Co de Phone Number [facility]LOOD B[facility] [address] [place] [address], [place] [phone] * LACTATE ARTERIAL (03/12/2024 3:35 AM OPERATIONS MGR) Only the most recent of3 resultswithin the time period is included. Pathologist [facility] LACTATE,ARTERI AL 1.1 0.5 - 1.6 mmol/L 03/12/2024 4:07 AM OPERATIONS MGR [facility] Blood BLOOD SPECIMEN / Unknown Non-Lab Venipuncture / Unknown 03/12/2024 3:35 AM OPERATIONS MGR 03/12/2024 3:44 AM OPERATIONS MGR Ne Bailey MD CHEMISTRY F inal Result Performing Organization Address [facility] Co de Phone Number [facility] [address] [address], [place] * (ABNORMAL) O2 SATURATION,MEASURED (03/12/2024 3:35 AM OPERATIONS MGR) Only the most recent of2 resultswithin the time period is included. O2 SATURATION,JAUNI SURED 65 % 03/12/2024 3:56 AM OPERATIONS MGR [facility] HEMOGLOBIN,BLO OD GAS 8.4(L) 13.5 - 17.5 g/dL 03/12/2024 3:56 AM OPERATIONS MGR [facility] SOURCE, O2M Venous 03/12/2024 3:56 AM OPERATIONS MGR [facility] Blood BLOOD SPECIMEN / Unknown Non-Lab Venipuncture / Unknown 03/12/2024 3:35 AM OPERATIONS MGR 03/12/2024 3:45 AM OPERATIONS MGR [facility]ative [facility] - 03/12/2024 3:56 AM OPERATIONS MGR Reference Range for: Arterial Source (94-98) Non-Arterial Source (70-75) Ne Bailey MD CHEMISTRY F inal Result Performing Organization Address City/[facility]/ZIP Co de Phone Number [facility] [address] [place] [address], [place] * AMMONIA (03/12/2024 3:35 AM OPERATIONS MGR) Only the most recent of2 resultswithin the time period is included. AMMONIA 20 11 - 51 umol/L 03/12/2024 4:07 AM OPERATIONS MGR [facility] Blood BLOOD SPECIMEN / Unknown Non-Lab Venipuncture / Unknown 03/12/2024 3:35 AM OPERATIONS MGR 03/12/2024 3:44 AM OPERATIONS MGR Narrative [facility] - 03/12/2024 4:07 AM OPERATIONS MGR 1. Sulfasalazine and its metabolite Sulfapyridine at therapeutic concentrations may lead to falsely low results. 2. Temozolomide and its metabolite MTIC may lead to falsely elevated results, and its metabolite AIC may lead to falsely low results. Cain Monet MD CHEMISTRY Maia l Result Performing Organization Address City/[facility]/ZIP Co de Phone Number [facility] [address] [place] [id number], [place] * (ABNORMAL) COMP METABOLIC PANEL (03/12/2024 3:35 AM OPERATIONS MGR) SODIUM 132(L) 136 - 145 mmol/L 03/12/2024 4:12 AM OPERATIONS [facility] POTASSIUM 3.9 3.5 - 5.1 mmol/L 03/12/2024 4:12 AM [facility] CHLORIDE 100 98 - 107 mmol/L 03/12/2024 4:12 AM [facility] TRA [facility] CO2,TOTAL 21(L) 22 - 29 mmol/L 03/12/2024 4:12 AM [facility] ANION GAP 11 5 - 18 03/12/2024 4:12 AM [facility] GLUCOSE 255(H) 70 - 99 mg/dL 03/12/2024 4:12 AM [facility] CALCIUM 8.6(L) 8.8 - 10.4 mg/dL 03/12/2024 4:12 AM [facility] Comment: Reference ranges for this test were updated on 01/04/2024 to reflect our healthy population more accurately. Reference range changes are not retroactively applied to results, but previous results using the same methodology can be interpreted in the context of the new reference range. BUN 15 8 - 23 mg/dL 03/12/2024 4:12 AM [facility] CREATININE 0.95 0.70 - 1.20 mg/dL 03/12/2024 4:12 AM [facility] BUN/CREAT RATIO 16 10 - 20 4:12 AM [facility] eGFR 78(L) >90 mL/min/1. 73m2 03/12/2024 4:12 AM [facility] Comment:As of 2021, eG FR is calculated by the CKD-EPI creatinine equation without race adjustment. eGFR can be influenced by muscle mass, exercise, and diet. The reported eGFR is an estimation only and is only applicable if the renal function is stable. ALBUMIN 3.5(L) 4.0 - 4.9 g/dL 03/12/2024 4:12 AM [facility] TRAL LABORATORY PROTEIN,TOTAL 5.2(L) 6.0 - 8.0 g/dL 03/12/2024 4:12 AM [facility] TRA LABORATORY BILIRUBIN,TOTAL 2.7(H) 0.0 - 1.2 mg/dL 03/12/2024 4:12 AM OPERATIONS MGR [facility] TRAL LABORATORY ALK PHOSPHATASE 53 40 - 129 IU/L 03/12/2024 4:12 AM OPERATIONS MGR [facility] LABORATORY ALT (SGPT) 7(L) 10 - 50 IU/L 03/12/2024 4:12 AM OPERATIONS MGR [facility] LABOR[facility] AST (SGOT) 29 10 - 50 IU/L 03/12/2024 4:12 AM OPERATIONS MGR [facility] LABOR[facility]ORY Blood BLOOD SPECIMEN / Unknown Non-Lab Venipuncture / Unknown 03/12/2024 3:35 AM OPERATIONS MGR 03/12/2024 3:44 AM OPERATIONS MGR us Cain Monet MD CHEMISTRY Maia l Result [facility] [address] [place] [address], [place] * PLATELET COUNT (03/11/2024 3:55 AM OPERATIONS MGR) Only the most recent of3 resultswithin the time period is included. PLATELET COUNT 152 140 - 440 thou/cu mm 03/11/2024 4:10 AM OPERATIONS MGR [facility] LABORATORY MPV 10.3 6.5 - 11.0 fL 03/11/2024 4:10 AM OPERATIONS MGR [facility] LAB[facility] Blood BLOOD SPECIMEN / Unknown Non-Lab Venipuncture / Unknown 03/11/2024 3:55 AM OPERATIONS MGR 03/11/2024 4:05 AM OPERATIONS MGR us Luann Camarillo MD HEMATOLOGY Final Resu lt [facility] LABORATORY [address] [place] [address], [place] * (ABNORMAL) ARTERIAL BLOOD GAS (03/11/2024 12:32 AM OPERATIONS MGR) Only the most recent of2 resultswithin the time period is included. PH, ARTERIAL 7.45 7.35 - 7.45 03/11/2024 12:46 AM OPERATIONS MGR [facility] TRAL LABORATORY PCO2, ARTERIAL 33(L) 35 - 48 mmHg 03/11/2024 12:46 AM [facility] TRAL LABORATORY PO2, ARTERIAL 126(H) 83 - 108 mmHg 03/11/2024 12:46 AM [facility] TRAL LABORATORY HCO3, ARTERIAL 23 21 - 28 mmol/L 03/11/2024 12:46 AM [facility] MGR [facility] BASE EXCESS, ARTERIAL -0.4 -2.0 - 3.0 03/11/2024 12:46 AM [facility] LABORATORY O2 SATURATION, ARTERIAL 100(H) 94 - 98 % 03/11/2024 12:46 AM [facility] LABORATORY INSPIRED O2 40 03/11/2024 12:46 AM [facility] TRA LABORATORY Comment:Unit of Measure: Lit ers (L) if <=20; Percent (%) if >20 PATIENT TEMPERATURE 37.3 Degrees C 03/11/2024 12:46 AM [facility] LABORATORY Blood ARTERIAL BLOOD SPECIMEN / Unknown Non-Lab Venipuncture / Unknown 03/11/2024 12:32 AM OPERATIONS MGR 03/11/2024 12:40 AM OPERATIONS MGR Tonja Redman MD CHEMISTRY Final Res ult Performing Organization Address City/[facility]/ZIP Co de Phone Number [facility] [address] [place] [address], * (ABNORMAL) Thrombin Time - Immediate Postop (03/10/2024 5:47 PM OPERATIONS MGR) THROMBIN TIME 17(H) <16 sec 03/10/2024 6:05 PM OPERATIONS MGR [facility] Blood BLOOD SPECIMEN / Unknown Non-Lab Venipuncture / Unknown 03/10/2024 5:47 PM OPERATIONS MGR 03/10/2024 5:54 PM OPERATIONS MGR Tonja Redman MD HEMATOLOGY Final Res ult [facility] [address] [address], [place] * (ABNORMAL) CREATININE (03/10/2024 5:47 PM OPERATIONS MGR) eGFR 87(L) >90 mL/min/1.7 3m2 03/10/2024 9:19 PM OPERATIONS MGR [facility] Comment:As of 2021, eG FR is calculated by the CKD-EPI creatinine equation without race adjustment. eGFR can be influenced by muscle mass, exercise, and diet. The reported eGFR is an estimation only and is only applicable if the renal function is stable. CREATININE 0.77 0.70 - 1.20 mg/dL 03/10/2024 9:19 PM OPERATIONS MGR [facility] LAB[facility] Blood BLOOD SPECIMEN / Unknown Non-Lab Venipuncture / Unknown 03/10/2024 5:47 PM OPERATIONS MGR 03/10/2024 5:54 PM OPERATIONS MGR Tonja Redman MD CHEMISTRY Final Res ult Performing Organization Address City/[facility]/ZIP Co de Phone Number [facility] LABORATORY [address] [address], [place] * APTT - Immediate Postop (03/10/2024 5:47 PM OPERATIONS MGR) APTT 29 25 - 36 sec 03/10/2024 6:05 PM OPERATIONS MGR [facility] LABORATORY Blood BLOOD SPECIMEN / Unknown Non-Lab Venipuncture / Unknown 03/10/2024 5:47 PM OPERATIONS MGR 03/10/2024 5:54 PM OPERATIONS MGR Narrative [facility] LABORATORY - 03/10/2024 6:05 PM OPERATIONS MGR Therapeutic Range: 59-89 seconds Tonja Redman MD HEMATOLOGY Final Res ult Performing Organization Address City/[facility]/ZIP Co de Phone Number [facility] LABORATORY [address] [place] [address], [place] * Fibrinogen, Quantitative - Immediate Postop (03/10/2024 5:47 PM OPERATIONS MGR) Only the most recent of2 resultswithin the time period is included. FIBRINOGEN,LINCOLN NTITATIVE 242 193 - 401 mg/dL 03/10/2024 6:10 PM OPERATIONS MGR [facility] LAB[facility] Blood BLOOD SPECIMEN / Unknown Non-Lab Venipuncture / Unknown 03/10/2024 5:47 PM OPERATIONS MGR 03/10/2024 5:54 PM OPERATIONS MGR us Tonja Redman MD HEMATOLOGY Final Res ult [facility] LABORATORY [address] [place] [address], * TRANSFUSE CRYOPRECIPITATE (NURSE COMMUNICATION ORDER) (03/10/2024 4:56 PM OPERATIONS MGR) Blood BLOOD SPECIMEN / Unknown Marino Rain CRNA NURSING BLOOD BAN K Final Result * TRANSFUSE PLT (NURSE COMMUNICATION ORDER) (03/10/2024 4:32 PM OPERATIONS MGR) Blood BLOOD SPECIMEN / Unknown Marino Rain CRNA NURSING BLOOD BAN K Final Result * TRANSFUSE PLT (NURSE COMMUNICATION ORDER) (03/10/2024 4:32 PM OPERATIONS MGR) Blood BLOOD SPECIMEN / Unknown Marino Rain CRNA NURSING BLOOD BAN K Final Result * TRANSFUSE PLASMA (NURSE COMMUNICATION ORDER) (03/10/2024 4:29 PM OPERATIONS MGR) Blood BLOOD SPECIMEN / Unknown Marino Rain CRNA NURSING BLOOD BAN K Final Result * PLASMA ORDER, 2 units (03/10/2024 4:18 PM OPERATIONS MGR) QUANTITY 2 03/10/2024 4:1 8 PM [facility]ATIONS MGR [facility] Blood BLOOD SPECIMEN / Unknown 03/10/2024 4:11 PM OPERATIONS MGR Nataliya Linares MD BLOOD BANK Edited Result - Final Performing Organization Address City/[facility]/ZIP Co de Phone Number [facility] [address] [place] [address], [place] [phone] * PLATELET ORDER, 1 unit (03/10/2024 4:18 PM OPERATIONS MGR) Only the most recent of2 resultswithin the time period is included. QUANTITY 1 03/10/2024 4:1 8 PM OPERATIONS MGR [facility] [employer]-CENTRAL LAB BLOOD BANK Blood BLOOD SPECIMEN / Unknown 03/10/2024 4:11 PM OPERATIONS MGR Nataliya Linares MD BLOOD BANK Final R esult Performing Organization Address [facility]/ZIP Co de Phone Number [facility] [employer]-CENTRAL LAB BLOOD BANK [address] [place] [address], [place] [phone] * CRYOPRECIPITATE ORDER, 1 Pools (03/10/2024 4:18 PM OPERATIONS MGR) QUANTITY 1 03/10/2024 4:1 8 PM OPERATIONS MGR [facility] BLO[facility] Blood BLOOD SPECIMEN / Unknown 03/10/2024 4:11 PM OPERATIONS MGR Nataliya Linares MD BLOOD BANK Final R esult Performing Organization Address City/[facility]/ZIP Co de Phone Number [facility] [address] [place] [address], [place] [phone] * PLATELET EA UNIT (03/10/2024 4:15 PM OPERATIONS MGR) Only the most recent of2 resultswithin the time period is included. PRODUCT BLOOD TYPE O Rh Positive [facility] [employer] LAB BLOOD BANK PRODUCT ID NUMBER [id number] [facility] [employer]-CENTRAL LAB BLOOD BANK PRODUCT STATUS Transfused [facility] [employer]-CENTRAL LAB BLOOD BANK PRODUCT DESCRIPTION SDP ACD-A IRR LR Pt1 [facility] [employer] LAB BLOOD BANK PRODUCT CODE [id number] [facility] LAB-CENTRAL LAB BLOOD BANK ISSUE DATE/TIME 03/10/24 16:23 [employer] LAB-CENTRAL LAB BLOOD BANK Nataliya Linares MD BLOOD BANK Edited Result - Final Performing Organization Address City/[facility]/ZIP Co de Phone Number [employer] LAB-CENTRAL LAB BLOOD BANK [address] [place] [address], [place] [phone] * PLASMA SNGL DON FFPEA UNIT (03/10/2024 4:15 PM OPERATIONS MGR) Only the most recent of2 resultswithin the time period is included. PRODUCT BLOOD TYPE O Rh Positive [facility] [employer] LAB-CENTRAL LAB BLOOD BANK PRODUCT ID NUMBER [id number] [facility] [employer] LAB-CENTRAL LAB BLOOD BANK PRODUCT STATUS Transfused [employer] LAB-CENTRAL LAB BLOOD BANK PRODUCT DESCRIPTION FP ACD-A Thaw [facility] [employer] LAB-CENTRAL LAB BLOOD BANK PRODUCT CODE [id number] [facility] [employer] LAB-CENTRAL LAB BLOOD BANK ISSUE DATE/TIME 03/10/24 16:19 [facility] [employer] LAB-CENTRAL LAB BLOOD BANK Nataliya Linares MD BLOOD BANK Edited Result - Final [facility]-CENTRAL LAB BLOOD BANK [address] [place] [address], [place] [phone] * CRYOPRECIPITATE EA UNIT (03/10/2024 4:15 PM OPERATIONS MGR) Only the most recent of2 resultswithin the time period is included. PRODUCT BLOOD TYPE O Rh Positive [facility] [employer] LAB-CENTRAL LAB BLOOD BANK PRODUCT ID NUMBER [id number] [facility] [employer] LAB-CENTRAL LAB BLOOD BANK PRODUCT STATUS Transfused [employer] LAB-CENTRAL LAB BLOOD BANK PRODUCT DESCRIPTION CRYO [facility] [employer] LAB-CENTRAL LAB BLOOD BANK PRODUCT CODE [id number] [employer]-CENTRAL LAB BLOOD BANK ISSUE DATE/TIME 03/10/24 16:47 [facility] [employer] LAB-CENTRAL LAB BLOOD BANK Nataliya Linares MD BLOOD BANK Edited Result - Final [facility] LAB BLOOD BANK [address] [place] [address], * TRANSFUSE RBC (NURSE COMMUNICATION ORDER) (03/10/2024 3:47 PM OPERATIONS MGR) Blood BLOOD SPECIMEN / Unknown Marino Rain BRAKE LINING FINISHER NURSING BLOOD BAN K Final Result * (ABNORMAL) Cardiac Thromboelastography (03/10/2024 3:35 PM OPERATIONS MGR) ANA REASON Cardiac Weaning Pre-Protamin e Panel 03/10/2024 5:36 PM OPERATIONS MGR [facility] TRAL LABORATORY INTEM CT >365(H) 139 - 205 s 03/10/2024 5:36 PM OPERATIONS MGR [facility] TRAL LABORATORY EXTEM CT 145(H) 51 - 73 s 03/10/2024 5:36 PM OPERATIONS MGR [facility] TRAL LABORATORY EXTEM A5 41 33 - 52 mm 03/10/2024 5:36 PM OPERATIONS MGR [facility] TRAL LABORATORY EXTEM A10 52 45 - 62 mm 03/10/2024 5:36 PM OPERATIONS MGR [facility] TRAL LABORATORY EXTEM A20 59 54 - 69 mm 03/10/2024 5:36 PM OPERATIONS MGR [facility] TRAL LABORATORY EXTEM MCF 61 57 - 72 mm 03/10/2024 5:36 PM OPERATIONS MGR [facility] TRAL LABORATORY EXTEM ML 3 0 - 6 % 03/10/2024 5:36 PM OPERATIONS MGR [facility] TRAL LABORATORY EXTEM LI60 98 94 - 100 % 03/10/2024 5:36 PM OPERATIONS MGR [facility] TRAL LABORATORY FIBTEM A5 10 5 - 16 mm 03/10/2024 5:36 PM OPERATIONS MGR [facility] TRAL LABORATORY FIBTEM A10 12 6 - 17 mm 03/10/2024 5:36 PM OPERATIONS MGR [facility] TRAL LABORATORY FIBTEM A20 13 6 - 18 mm 03/10/2024 5:36 PM OPERATIONS MGR [facility] TRAL LABORATORY FIBTEM MCF 13 6 - 19 mm 03/10/2024 5:36 PM OPERATIONS MGR [facility] TRAL LABORATORY HEPTEM CT 251(H) 141 - 215 s 03/10/2024 5:36 PM OPERATIONS MGR [facility] TRAL LABORATORY HEPTEM A5 36 33 - 51 mm 03/10/2024 5:36 PM OPERATIONS MGR [facility] TRAL LABORATORY HEPTEM A10 47 44 - 61 mm 03/10/2024 5:36 PM OPERATIONS MGR [facility] TRAL LABORATORY HEPTEM A20 55 52 - 67 mm 03/10/2024 5:36 PM OPERATIONS MGR [facility] TRAL LABORATORY HEPTEM MCF 56 54 - 69 mm 03/10/2024 5:36 PM OPERATIONS MGR [facility] TRAL LABORATORY Blood BLOOD SPECIMEN / Unknown Non-Lab Venipuncture / Unknown 03/10/2024 3:35 PM OPERATIONS MGR 03/10/2024 3:44 PM OPERATIONS MGR Marino Rain CRNA HEMATOLOGY F inal Result [facility] LABORATORY [address] [place] [address], * RED BLOOD CELLS EA UNIT (03/10/2024 3:30 PM OPERATIONS MGR) Only the most recent of2 resultswithin the time period is included. CROSSMATCH Compatible Compatible [facility] [employer] [facility] LAB BLOOD BANK PRODUCT BLOOD TYPE O Rh Positive [facility] BLOOD BANK PRODUCT ID NUMBER [id number] [facility] [employer] LAB BLOOD BANK PRODUCT STATUS Transfused [facility] [employer] LAB BLOOD BANK PRODUCT DESCRIPTION RBC -1 LR [facility] [employer] [facility] LAB BLOOD BANK PRODUCT CODE [id number] [facility] [employer] LAB BLOOD BANK ISSUE DATE/TIME 03/10/24 15:30 [facility] LAB BLOOD BANK Nataliya Linares MD BLOOD BANK Edited Result - Final [facility] LAB BLOOD BANK [address] [place] [address], * FANG (03/10/2024 3:10 PM OPERATIONS MGR) Narrative Nataliya Linares MD - 03/10/2024 6:54 PM OPERATIONS MGR Nataliya Linares MD 03/10/2024 3:11 PM FANG [...] Nataliya Linares MD - 03/10/2024 3:10 PM OPERATIONS MGR Nataliya Linares MD 03/10/2024 3:10 PM CVC [...] PR5, HCHG KIT PR5 (03/10/2024 3:09 PM OPERATIONS MGR) Narrative Nataliya Linares MD - 03/10/2024 3:09 PM OPERATIONS MGR Nataliya Linares MD 03/10/2024 3:10 PM Arterial [...] * ECHO FANG INTRAOPERATIVE (03/10/2024 2:42 PM OPERATIONS MGR) Anatomical Region Laterality Modality Computed Radiogr aphy 03/10/2024 11:2 3 AM OPERATIONS MGR Narrative 03/10/2024 5:04 PM OPERATIONS MGR TRANSESOPHAGEAL ECHOCARDIOGRAM ENRIKE YARBROUGH : 1940 84 years Study Date: 03/10/2024 11:23:38 AM Gender: M BP: 109/52 mmHg Height: 170.00 cm BSA: 2.09 m Weight: 98.00 kg Tech: Referring MD: DERICK WINN Site: [facility] Reading Location: [facility] Patient Location: Procedure: FANG. Indication [...] kg Tech: Referring MD: DERICK WINN Site: [facility] Reading Location: [facility] Patient Location: Procedure: FANG. Indication [...] PR1, HCHG STYLET PR1 (03/10/2024 1:18 PM OPERATIONS MGR) Narrative Diane Benavides BRAKE LINING FINISHER - 03/10/2024 1:18 PM OPERATIONS MGR Diane Benavides CRNA 03/10/2024 1:19 PM Procedure: [...] From: teeth Difficulty: 0 (not difficult) Result [facility] Nataliya Linares MD ANESTHESIA PX NOTE ORDE RABLES Final Result * Type and Screen (03/10/2024 10:41 AM OPERATIONS MGR) ABORH O Rh Positive 03/10/2024 11:43 AM OPERATIONS MGR [employer] LAB BLOOD BANK ANTIBODY SCREEN Negative Negative 03/10/2024 11:43 AM [facility] [employer] LAB BLOOD BANK SPECIMEN EXPIRATION DATE/TIME 03/13/24 23:59 03/10/2024 11:43 AM [facility] [employer] LAB BLOOD BANK Blood BLOOD SPECIMEN / Unknown Venipuncture / Unknown 03/10/2024 10:41 AM OPERATIONS MGR 03/10/2024 10:59 AM OPERATIONS MGR Olamide GIL BLOOD BANK Final Res ult [facility] LAB BLOOD BANK [address] [place] [address], * (ABNORMAL) Glucose, Fasting (03/10/2024 10:41 AM OPERATIONS MGR) Pathologist [facility] GLUCOSE 153(H) 70 - 99 mg/dL 03/10/2024 11:31 AM OPERATIONS MGR [facility]OR[facility] Blood BLOOD SPECIMEN / Unknown Venipuncture / Unknown 03/10/2024 10:41 AM OPERATIONS MGR 03/10/2024 10:59 AM OPERATIONS MGR Olamide GIL CHEMISTRY Final Res ult [facility] LABORATORY [address] [place] [address], [place] * EXTRA TUBE GOLD/SST (03/10/2024 10:40 AM OPERATIONS MGR) Blood BLOOD SPECIMEN / Unknown Extra Tube / Unknown 03/10/2024 10:40 AM OPERATIONS MGR 03/10/2024 11:01 AM OPERATIONS MGR Tonja Redman MD LABORATORY Final Res ult [facility] LAB[facility] [address] [place] [address], [place] * SCAN-OPERATIVE/PROCEDURE REPORT (03/10/2024 12:00 AM OPERATIONS MGR) Narrative 03/10/2024 12:00 AM OPERATIONS MGR Ordered by an unspecified provider. Other Clinical Staff OTHER Final Resul t * (ABNORMAL) HEMOGLOBIN A1C MONITORING (POCT) (03/03/2024 8:51 AM OPERATIONS MGR) Pathologist [facility] POC HEMOGLOBIN A1C 7.7(H) <6.0 % OF TOTAL HGB [facility] Comment: Any point of care results exhibiting inconsistency with the patient's clinical status should be repeated using a different testing method. Blood BLOOD SPECIMEN / Unknown 03/03/2024 8:51 AM OPERATIONS MGR 03/03/2024 8:51 AM OPERATIONS MGR us Lindsay Toscano MD CHEMISTRY Final Result [facility] [address] [facility] [facility] [place] [address], [facility] [address] [place] [address] * SCAN-RADIOLOGY REPORT (02/24/2024 12:00 AM OPERATIONS MGR) Anatomical Region Laterality Modality Other us Scanner OTHER Final Result * SCAN-CT INTERPRETATION (02/24/2024 12:00 AM OPERATIONS MGR) Anatomical Region Laterality Modality Other us Scanner OTHER Final Result * US CAROTID DUPLEX BILATERAL (02/18/2024 9:29 AM OPERATIONS MGR) Anatomical Region Laterality Modality CAROTID, NECK Ultrasound 02/18/2024 8:51 AM OPERATIONS MGR Narrative 02/18/2024 1:54 PM OPERATIONS MGR VASCULAR ULTRASOUND REPORT ENRIKE YARBROUGH : 1940 Study Date: 02/18/2024 8:51:53 AM Age: 83 years Tech: JODY Gender: M Referring MD: SEYMOUR COLLAZO Site: [facility] V[facility] Center Study performed: Carotid Indication for [...] Accreditation Commission (IAC/Vascular), www.[email or web address].org/vascular Report generated by PeerJ. Final Procedure Note Mario Alberto Bailey MD - 02/18/2024 VASCULAR ULTRASOUND REPORT ENRIKE YARBROUGH : 1940 Study Date: 02/18/2024 8:51:53 AM Age: 83 years Tech: JODY Gender: M Referring MD: SEYMOUR COLLAZO Site: [facility] - Vascular Center Study performed: Carotid Indication [...] theIntersocietal Accreditation Commission (IAC/Vascular),[email or web address]/vascular Report generated by PeerJ. Final us Seymour GIL US Final Result * US VEIN MAPPING LOWER EXTREMITY BILATERAL (02/18/2024 9:29 AM OPERATIONS MGR) Anatomical Region Laterality Modality LEGS, LEG L, LEG R Ultrasound 02/18/2024 9:05 AM OPERATIONS MGR Narrative 02/18/2024 1:42 PM OPERATIONS MGR VASCULAR ULTRASOUND REPORT ENRIKE YARBROUGH : 1940 Study Date: 02/18/2024 9:05:05 AM Age: 83 years Tech: JODY Gender: M Referring MD: SEYMOUR COLLAZO Site: [facility] Vascular Center Study performed: (bilateral), vein mapping. [...] Accreditation Commission (IAC/Vascular), www.[email or web address].org/vascular Report generated by PeerJ. Final Procedure Note Mario Alberto Bailey MD - 02/18/2024 VASCULAR ULTRASOUND REPORT ENRIKE YARBROUGH : 1940 Study Date: 02/18/2024 9:05:05 AM Age: 83 years Tech: JODY Gender: M Referring MD: SEYMOUR COLLAZO Site: [facility] - Vascular Center Study performed: (bilateral), vein [...] theIntersocietal Accreditation Commission (IAC/Vascular),[email or web address]/vascular Report generated by PeerJ. Final us Seymour GIL US Final Result * CVL CORONARY ANGIOGRAM POSS PCI (02/11/2024 2:21 PM OPERATIONS MGR) Anatomical Region Laterality Modality X-Ray Angiograph y, X-Ray Angiography 02/11/2024 2:21 PM OPERATIONS MGR Narrative Transcriptions Aba Viramontes MD - 02/11/2024 4:47 PM CST [facility] Cardiac Catheterization Report Name: ENRIKE YARBROUGH Event Date: 02/11/2024 14:21 Excellian ID #: [id number] LIVIA #: [id number] Patient Class: Outpatient Diagnostic Physician: ABA VIRAMONTES [facility] Referring Physician: PCP Lindsay Toscano Primary Care [...] plan for higher risk PCI Consent & Holland Protocol The risks, benefits, and alternatives of the procedure were discussed withthe patient and written informed consent was obtained. Holland protocol was followed. TIME OUT conducted just prior tostarting procedure confirmed patient identity, site/side, procedure,patient position, and availability of correct equipment and implants (ifapplicable). Staff Name Title ABA VIRAMONTES Diagnostic Software Release Manager Tre Wong RN Nurse Yamila Lawrence CVT Scrub Krunal Villanueva CVT Monitor Katelynn Boyce BEET TOPPER Nursery Worker Procedures ? Ultrasound Guided Vascular Access ? [...] healthcare professional providing the sedation ends personal [id number] time with the patient. The medications listed above were verbally ordered by me and read back tome as documented above. Refer to the procedure log report for additional case details. electronically signed on 02/11/2024 4:47:20 PM with status of Final Aba Viramontes MD [facility] [address] [place] [address] (p) (f) us Provider Referring CV IMAGING Edited Result - Final * PATH TISSUE EXAM (02/02/2024 9:50 AM OPERATIONS MGR) Case Report Pathology Report Case: [id number] Authorizing Provider: Constance Colmenares MD Collected: 02/02/2024 0950 Ordering Location: [facility] Received: 02/02/2024 1535 Clinic Pathologist: Lisandra Wise MD Specimen: Skin, left leg 02/09/2024 8:32 AM [facility]- ENTRAL LABORATORY Final Diagnosis SKIN, LEFT LEG, BIOPSY: 1. Spongiotic superficial dermatophyte infection 2. Fungal hyphae are identified within the stratum corneum on PAS stained sections 3. 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 SJM 02/03/2024 02/09/2024 8:32 AM [facility] ENTRAL LABORATORY Microscopic Description The final diagnosis is based on microscopic examination of appropriate sections of all specimens. Sections reveal spongiosis of the epidermis and a mixed upper and mid dermal mixed inflammatory infiltrate. PAS positive fungal hyphae are identified within the stratum corneum. The presence of yellow ink is confirmed on tissue sections. 02/09/2024 8:32 AM [facility] ENTRAL LABORATORY Additional Information Interpreted at [facility], Central Laboratory - [address], [place] [address] 02/09/2024 8:32 AM OPERATIONS MGR [facility] LABORATORY-C ENTRAL LABORATORY Other SPECIMEN FROM SKIN / Unknown Non-Blood / Unknown 02/02/2024 9:50 AM OPERATIONS MGR 02/02/2024 3:35 PM OPERATIONS MGR Constance Colmenares MD PATHOLOGY/CYTOLOGY Final Resul t [facility]-CENTRAL LABORATORY [address] [place] [address], * (ABNORMAL) LIPID PANEL W REFLEX MEASURED LDL (02/01/2024 11:44 AM OPERATIONS MGR) CHOLESTEROL, TOTAL 211(H) <200 mg/dL [facility] [...] LDL-C. Frandy SS et al. KAMILA. 2013;310(19): 6476-2169 ([email or web address]://[email or web address]/[email or web address]) CHOL/HDLC RATIO 3.1 <5.0 (calc) [facility] NON HDL CHOLESTEROL 142(H) <130 mg/dL (calc) [facility] Comment: For patients with diabetes plus 1 major ASCVD risk factor, treating to a non-HDL-C goal of <100 mg/dL (LDL-C of <70 mg/dL) is considered a therapeutic option. Blood BLOOD SPECIMEN / Unknown 02/01/2024 11:44 AM OPERATIONS MGR 02/01/2024 11:46 AM OPERATIONS MGR Narrative [facility] - 02/02/2024 4:34 AM OPERATIONS MGR FASTING:NO FASTING: NO Melanie Raysa GIL CHEMISTRY Final Res ult Performing Organization Address [facility]/ZIP Co de Phone Number [facility] [address] [place] [address], [place] [phone] [facility] [facility] [address] [place] [address] * ALT (SGPT) (02/01/2024 11:44 AM OPERATIONS MGR) ALT 16 9 - 46 U/L [facility] Blood BLOOD SPECIMEN / Unknown 02/01/2024 11:44 AM OPERATIONS MGR 02/01/2024 11:46 AM OPERATIONS MGR Narrative [facility] - 02/02/2024 4:34 AM OPERATIONS MGR FASTING:NO FASTING: NO Melanie IGL CHEMISTRY Final Res ult Performing Organization Address [facility]/ZIP Co de Phone Number [facility] [address] [place] [address], [place] [phone] [facility] [facility] [address] [place] [address] * AST (SGOT) (02/01/2024 11:44 AM OPERATIONS MGR) AST 20 10 - 35 U/L [facility] Blood BLOOD SPECIMEN / Unknown 02/01/2024 11:44 AM OPERATIONS MGR 02/01/2024 11:46 AM OPERATIONS MGR Narrative [facility] - 02/02/2024 4:34 AM OPERATIONS MGR FASTING:NO FASTING: NO Melanie Raysa GIL CHEMISTRY Final Res ult [facility] [address] [place] [address], [place] [phone] [facility] [address] [place] [address] * CTA FRACTIONAL FLOW RESERVE (01/31/2024 12:27 PM OPERATIONS MGR) Anatomical Region Laterality Modality Computed Tomogra phy Narrative 02/01/2024 2:57 PM OPERATIONS MGR Images from the original result were not included. [facility] [place] [facility] Cardiac CT Report Name: ENRIKE YARBROUGH David : Scan Date: Accession Number: [id number] Status: Final Electronically signed by Rakesh Chawla [...] TYPE: Calcium score, Coronary CT Angiography SCANNER RESEARCH BIOLOGIST: SIEMENS SCANNER MODEL: SOMATOM Force DOSE REDUCTION ALGORITHM: Prospective/Xxqb-wsj-lrjir PHASE UNITS: ms START PHASE: 280 ms [...] MELANIE ISBELL TECHNOLOGIST: Allison Willson Patient Account [id number] ICD10 Codes I50.9, R94.39 Report generated by [employer], a product of [employer] For [...] conjunction with the services provided by the [facility] [place] ([facility]). Extracardiac findings: Visualized lungs and pleural spaces: [...] CORONARY ARTERIES DUAL READ (01/31/2024 12:27 PM OPERATIONS MGR) Anatomical Region Laterality Modality HEART Computed Tomogra phy 01/31/2024 12:0 7 PM OPERATIONS MGR Narrative 02/01/2024 2:57 PM OPERATIONS MGR Images from the original result were not included. [facility] [place] [facility] Cardiac CT Report Name: ENRIKE YARBROUGH David : Scan Date: Accession Number: [id number] Status: Final Electronically signed by Rakesh Chawla [...] TYPE: Calcium score, Coronary CT Angiography SCANNER RESEARCH BIOLOGIST: PageStitch SCANNER MODEL: Speakap DOSE REDUCTION ALGORITHM: Prospective/Dkam-hbc-fjjof PHASE UNITS: ms START PHASE: 280 ms [...] MELANIE ISBELL TECHNOLOGIST: Allison Willson Patient Account [id number] ICD10 Codes I50.9, R94.39 Report generated by [employer], a product of [employer] For [...] conjunction with the services provided by the [facility] [place] ([facility]). Extracardiac findings: Visualized lungs and pleural spaces: [...] DUAL CHAMBER W REPROG (01/31/2024 11:00 AM OPERATIONS MGR) Narrative Darby Hayward RN - 01/31/2024 11:00 AM OPERATIONS MGR Darby Hayward RN 02/01/2024 8:34 AM PACEMAKER EVALUATION REPORT 01/31/24 Summary: Normal pacemaker function. Lead trends stable. No VT detections. 17.3 % AT/AF detections, on Eliquis, rates controlled. 32.6 AP%, 97.4 ASSISTANT PROFESSOR OF THEATER% battery remaining 9.7 years. Indication for Pacemaker: Atrial Fibrillation with Slow Ventricular Response Primary MD: Lindsay Toscano MD Primary Software Release Manager: Implanting MD: Enrike Goode MD DEVICE DATA Kick Plate Installer [employer]onic: Model Binta XT DR EVNAS Kong [id number] Implant Date 03/21/2022 LEAD DATA Atrial Lead: Kick Plate Installer [employer]tronic: Model 5076 52 cm Implant Date 03/21/2022 RV Lead: Kick Plate Installer [employer]: Model 5076 58 cm Implant Date [...] 17.3% AT/AF burden. Viewable EGMs show afib/flutter w/ASSISTANT PROFESSOR OF THEATER. Patient is anticoagulated and overall ventricular rates [...] carelink utilizing a Relay monitor with annual [place] each ~September. 12:45 pm Reprogrammed patient post [...] Bipolar Darby Hayward RN Nurse Clinician II [facility] Pacemaker/ICD Clinic [phone] us Enrike Goode MD CARDIAC SERVICES ORD Final Result * PRO-BNP (01/28/2024 1:30 PM OPERATIONS MGR) NT PROBNP 318 <450 pg/mL [facility] Blood BLOOD SPECIMEN / Unknown 01/28/2024 1:30 PM OPERATIONS MGR 01/28/2024 1:31 PM OPERATIONS MGR us Melanie GIL SEND OUTS Final Res ult [facility] [place] [address] [address], [facility] [address] [address] * SCAN-EYE EXAM (01/19/2024 12:00 AM OPERATIONS MGR) us Scanner OTHER Final Result * ECHO TTE COMPLETE WO CONTRAST (01/17/2024 3:49 PM OPERATIONS MGR) AORTIC VALVE MEAN PG 4 mmHg EJECTION FRACTION 52 % LVEDD 5.1 cm Anatomical Region Laterality Modality Ultrasound 01/17/2024 2:47 PM OPERATIONS MGR Narrative 01/17/2024 4:38 PM OPERATIONS MGR ECHOCARDIOGRAM ENRIKE YARBROUGH : 1940 83 years Study Date: 01/17/2024 2:47:16 PM Gender: M BP: 98/64 mmHg Height: 175.26 cm BSA: 2.14 m Weight: 98.88 kg Tech: MSR Referring MD: MELANIE ISBELL Site: [facility] Reading Location: Mobile OP Patient Location: Outpatient. [...] . This study was interpreted by an [facility] accredited facility. Final Procedure Note Marcelo Cates MD - 01/17/2024 ECHOCARDIOGRAM ENRIKE YARBROUGH : 1940 83 years Study Date: 01/17/2024 2:47:16 PM Gender: M BP: 98/64 mmHg Height: 175.26 cm BSA: 2.14 m Weight: 98.88 kg Tech: MSR Referring MD: MELANIE ALEXANDRA CASE Site: [facility] Reading Location: [place] [facility] Patient Location: Outpatient. Procedure: 2D, Color [...] . This study was interpreted by an [facility] accredited facility. Final Melanie Isbell PA ECHO ORD Final Res ult from Last 3 Months Insurance * Guarantor: Enrike Yarbrough Account Type Relation to Patient Date of Phone Billing Address Personal/Family Self 1940 [phone] [place] [address] MEDICARE PART A HB ONLY BLUE CROSS MEDICARE ADVANTAGE MR Advance Directives Documents on File Type Date Recorded Patient Logistics Vice President Expl anation Healthcare Directive 02/10/2024 INVALID , [place], 02/10/2024 Power of Process Control Engineer 10/19/1996 DURABLE PO WER OF LABORER CONCRETE [employer] [facility], [facility], 10/19/1996 Power of Process Control Engineer 10/19/1996 STATUTORY SHORT FORM POWER OF LABORER CONCRETE PAVING, [facility], 10/19/1996 Healthcare Directive 03/04/1993 HEALTH CARE DECLARATION, [facility], 03/04/1993 * Full Code (Latest Code [...] 7:00 PM 04/07/2012 3:58 PM Care Teams Bpm Developer Relationship Specialty Start Date End Date Lindsay Toscano MD [address] [place] [address] PCP - General Family Practice 08/14/13 Pardeep Barid, [facility] Surgery - Orthopedics 09/09/12 Rocael Gamez [address] [place] [address] Ophthalmology Surgery 09/09/12 [place] [address] [place] [address] Rheumatology 03/07/24
--- OUTSIDE RECORDS SUMMARY | 2024-04-16 07:24 | XMS_ITS | Clinical Summary ---
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 Phone Marco Antonio Alicea MD Conditions or Problems Problem Name Problem Code Onset Date Status Entry Date Provider Comment Standard Description Annotate Leg weakness, bilateral 694745235 (SNOMED CT) Active Marco Antonio Alicea MD Paresis of lower extremity Peripheral polyneuropathy 547420294 (SNOMED CT) Active Marco Antonio Alicea MD Peripheral nerve disease Nonspecific paroxysmal spell 5089330 (SNOMED CT) 03/26 Active 03/26 Marco Antonio Alicea MD Disturbance of consciousness Mild cognitive impairment 442299914 (SNOMED CT) 03/19 Active 03/19 Marco Antonio Alicea MD Mild neurocognitive disorder Memory loss 71974785 (SNOMED CT) 10/31 Active 10/31 Marco Antonio Alicea MD Amnesia Medications Medication Instructions Start Date Stop Date Generic Name [facility] Provider PREDNISONE 20 MG TABS TAKE 1 TABLET (20 MG) BY MOUTH ONCE DAILY WITH A MEAL. prednisone [id number] Yue Ayaka Griffinucheril PA-C TROSPIUM CHLORIDE 20 MG TABS TAKE ONE TABLET BY MOUTH DAILY trospium [id number] Yue Garciail PA-C PREDNISONE 10 MG TABS TAKE 1-2 TABLETS (10-20 MG) BY MOUTH ONCE DAILY WITH A MEAL. DIRECTED prednisone [id number] Yue Griffinucheril PA-C GABAPENTIN 300 MG CAPS TAKE 1 CAPSULE (300 MG) BY MOUTH AT BEDTIME. gabapentin [id number] Yue Garciail PA-C ID NOW COVID-19 KIT TEST DIRECTED TODAY covid-19 molecular test assay [id number] Yue Schulte PA-C PREDNISONE 20 MG TABS TAKE 1 TABLET (20 MG) BY MOUTH ONCE DAILY WITH A MEAL. prednisone 52163354803 Yue Schulte PA-C ELIQUIS 5 MG TABS TAKE 1 TABLET (5 MG) BY MOUTH TWO TIMES DAILY. apixaban 61740854989 Yue Garciail PA-C TAMSULOSIN HCL 0.4 MG CAPS TAKE 1 CAPSULE (0.4 MG) BY MOUTH ONCE DAILY AFTER A MEAL. tamsulosin [id number] Yue Garciail PA-C ID NOW COVID-19 KIT TEST DIRECTED TODAY covid-19 molecular test assay [id number] Marco Antonio Alicea MD TRUE METRIX BLOOD GLUCOSE TEST STRP TEST 2 TIMES PER WEEK. blood sugar diagnostic [id number] Marco Antonio Alicea MD LISINOPRIL-HYD ROCHLOROTHIAZI DE 20-25 MG TABS lisinopril-hy drochlorothia zide 80777265412 Marco Antonio Alicea MD METFORMIN HCL ER 500 MG [id number] metformin [id number] Marco Antonio Alicea MD GLIPIZIDE ER 2.5 MG [id number] glipizide 88789667366 Marco Antonio Alicea MD SODIUM CHLORIDE 0.9 % SOLN sodium chloride 39910818244 Marco Antonio Alicea MD Medications Administered No [...] and results reviewed. Total score [M MSE] [id number] Normal Total scor e [MoCA] MMSE SCORE 28 Total scor e [MMSE] Plan of Care Type Date Detail Appointment 10:00 AM [place] , [address], [address], [place], [address], Pending order Follow up Pending order Follow up Pending order Follow up ABBY Pending order Patient Instruct ions Pending order Patient Instruct ions Pending order Follow up Pending order Patient Instruct ions Pending order Follow up ABBY in clinic or telemedicine Pending order Patient Instruct ions Pending order Follow up teleme dicine Pending order Neuropsychology Evaluation Procedures Code Procedure Name Date Entry Date CPT-74688 Nerve Conduction 11-12 studies CPT-61565 EMG with NCS (5+ muscles) - 2 limbs 12/22 LOINC 24919-1 MMSE ORDERS Patient Instructions ORDERS Follow up [facility]BBY ORDERS Patient Instructions ORDERS Follow up [facility]-[id number] Documentation of current medicatio ns ORDERS Patient Instructions ORDERS Follow up ABBY in clinic or telemedicine 2 [facility] 47136-9 MMSE ORDERS Patient Instructions ORDERS Follow up telemedicine 10/31 [facility]-[id number] Documentation of current medicatio ns ORDERS Neuropsychology Evaluation 2 [facility]-[id number] Documentation of current medicatio ns [facility] [address]253-6 MMSE Vital Signs No information available. Immunizations No information available. Advance Directives No information available.
[2024-04-16 07:35] LABS: Slide Review Reflex No
[2024-04-16 07:45] VITALS: BP 94/54; PULSE 72; RESP 16; O2SAT 94
[2024-04-16] MEDS: 0.9 % SODIUM CHLORIDE 500 ML 500 ML IV (07:48)
[2024-04-16 07:51] LABS: Chloride* 104 mmol/L (96-114); Potassium* 3.8 mmol/L (3.6-5.1); Sodium* 135 mmol/L (135-149)
[2024-04-16 07:54] LABS: Blood Urea Nitrogen* 19 mg/dL (7-30); Creatinine* 0.8 mg/dL (0.5-1.5); Est. Creatinine Clearance* 53.03; Estimated Glomerular Filt Rate 86 ml/min
[2024-04-16 07:55] LABS: Anion Gap 12 mEq/L (7-15); Calcium* 8.6 mg/dL (8.4-10.6); Carbon Dioxide* 19 mmol/L (20-32); Glucose* 176 mg/dL (60-115)
[2024-04-16 07:58] LABS: C Reactive Protein* 6.5 mg/dL (0.5-1.0)
[2024-04-16 08:00] VITALS: BP 107/55; PULSE 83; RESP 18; O2SAT 93
[2024-04-16 08:30] VITALS: BP 106/63; PULSE 75; RESP 18; O2SAT 96
[2024-04-16 09:15] VITALS: BP 115/63; PULSE 69; RESP 18; O2SAT 94
== END 2024-04-16 09:30 | disposition home or self-care (01) ==
PROVIDERS: Emergency Provider Family Medicine; PCP Family Medicine
DX: L03.317 Cellulitis of buttock (principal)
CPT/HCPCS: 36415; 72193; 80048; 85025; 86140; 99284; 99285; J7030; Q9967

== ENCOUNTER 2024-06-11 17:44 | Emergency (ER) | payer MEDICARE, SELFPAY ==
--- OUTSIDE RECORDS SUMMARY | 2024-06-11 17:46 | XMS_ITS | Clinical Summary ---
Author Organization [facility] Address [address] [place] [id number] Care Team Providers Care Teachers Aide Name Role Phone Pardeep Baird [facility] Unavailable + Rocael Gamez Unavailable Bari Toscano MD Primary Care Provider Hudson Valle MD Unavailable [phone] Allergies No known active allergies Medications lancets (Microlet Lancet)Indicatio ns:Type 2 diabetes mellitus without complication, without long-term current use of insulin (HC) Dispense item covered by pt ins. 250.00 NIDDM type II - Test twice a week 50 Each 3 12/26/19 21 Active blood sugar diagnostic (True Metrix Glucose Test Strip) stripIndications :Type 2 diabetes mellitus without complication, without long-term current use of insulin (HC) TEST 2 TIMES PER WEEK. 50 Each 3 07/07/19 24 Active gabapentin (NEURONTIN) 300 mg capsuleIndicatio ns:Spinal stenosis of lumbar region with neurogenic claudication Take 1 Capsule (300 mg) by mouth at bedtime. 90 Capsule 3 08/23/19 24 Active nitroglycerin (NITROSTAT) 0.4 mg sublingual tabletIndication s:Abnormal cardiac CT angiography,SOB (shortness of breath) Place 1 Tablet (0.4 mg) under the tongue every 5 minutes if needed for Chest Pain. Up to 3 tablets in 15 minutes. 25 Tablet 2 02/01/20 24 Active aspirin (ECOTRIN) 81 mg enteric coated tabletIndication s:ASHD (arterioscleroti c heart disease) Take 1 Tablet (81 mg) by mouth once daily with a meal. 02/11/20 24 Active honey (MediHoney, honey,) 100 % psteIndications: Wound of left lower extremity, subsequent encounter Apply topically to affected area(s). 44 mL 3 02/15/20 24 Active acetaminophen (TYLENOL) 325 mg tabletIndication s:S/P CABG x 3 Take 2 Tablets (650 mg) by mouth every 4 hours if needed for Pain (for pain >2). Max acetaminophen dose: 4000mg in 24 hrs. 03/20/19 25 Active empagliflozin (Jardiance) 10 mg tabletIndication s:S/P CABG x 3 Take 0.5 Tablets (5 mg) by mouth once daily. 45 Tablet 1 04/24/19 25 Active cyanocobalamin (Vitamin B-12) 1,000 mcg tabletIndication s:Vitamin B12 deficiency Take 1 Tablet (1,000 mcg) by mouth once daily. 90 Tablet 3 04/24/19 25 Active apixaban (Eliquis) 5 mg tabletIndication s:Atrial fibrillation, unspecified type (HC) Take 1 Tablet (5 mg) by mouth two times daily. 60 Tablet 04/24/19 25 Active glipiZIDE extended-release (GLUCOTROL XL) 10 mg Extended-Release tabletIndication s:Type 2 diabetes mellitus without complication, without long-term current use of insulin (HC) Take 1 Tablet (10 mg) by mouth once daily before a meal. 90 Tablet 1 04/24/19 25 Active metFORMIN (GLUCOPHAGE XR) 500 mg Extended-Release tabletIndication s:Controlled type 2 diabetes mellitus without complication, without long-term current use of insulin (HC) Take 4 Tablets (2,000 mg) by mouth once daily with evening meal. 360 Tablet 1 04/24/19 25 Active metoprolol succinate (TOPROL XL) 25 mg Sustained-Releas e tabletIndication s:S/P CABG x 3 Take 1 Tablet (25 mg) by mouth once daily. 90 Tablet 3 04/24/19 25 Active rosuvastatin (CRESTOR) 20 mg tabletIndication s:Abnormal cardiac CT angiography,SOB (shortness of breath),PINEDA (dyspnea on exertion) Take 1 Tablet (20 mg) by mouth at bedtime. 90 Tablet 3 04/24/19 25 Active tamsulosin 0.4 mg capsuleIndicatio ns:BPH without urinary obstruction Take 1 Capsule (0.4 mg) by mouth once daily after a meal. 90 Capsule 3 04/24/19 25 Active trospium (SANCTURA) 20 mg tabletIndication s:OAB (overactive bladder) One oral daily. 30 Tablet 12 04/24/19 25 Active potassium chloride (KLOR-CON M20) 20 mEq extended-release tablet (part/cryst)Chana cations:S/P CABG x 3 Take 1 Tablet (20 mEq) by mouth once daily. 90 Tablet 1 04/24/19 25 Active terbinafine HCL (LAMISIL) 250 mg tabletIndication s:Fungal dermatitis Take 1 Tablet (250 mg) by mouth once daily. 14 Tablet 05/10/19 25 Active triamcinolone 0.1 % ointmentIndicati ons:Rash Apply topically to affected area(s) three times daily. 80 g 05/10/19 25 Active furosemide 20 mg tabletIndication s:S/P CABG x 3 Take 1 Tablet (20 mg) by mouth once daily in the morning. Increase to 2 tablets for 2 or 3 days as needed for signs of fluid retention. 06/03/19 25 Active furosemide (LASIX) 20 mg tabletIndication s:S/P CABG x 3 Take 2 Tablets (40 mg) by mouth once daily in the morning. 180 Tablet 3 05/10/19 25 025 Discontin ued(*Medi cation adjustmen t) Active Problems Problem Noted Date Diagnosed Date [...] Encounters Date Type Department Care Team Description 06/09/2024 9:41 AM CDT - 06/09/2024 11:59 PM CDT Hospital Encounter [facility] [address] [place] [address] 06/09/2024 Travel 06/07/2024 9:50 AM CDT - 06/07/2024 11:59 PM CDT Hospital Encounter [facility] [address] [place] [address] 06/07/2024 Travel 06/05/2024 2:00 PM CDT Ancillary Procedure [facility] [address] [place] [address] 06/05/2024 9:46 AM CDT - 06/05/2024 11:59 PM CDT Hospital Encounter [facility] [address] [place] [address] 06/05/2024 Travel 06/05/[address] [place] [address] Jose, JEFFERY Briggs Concerns 06/02/2024 10:30 AM CDT Office Visit [facility] [address] [place] [address] Bari Toscano MD Medicare ANNUAL (subsequent) Visit (84 year old) 06/02/2024 8:17 AM CDT - 06/02/2024 11:59 PM CDT Hospital Encounter [facility] [address] [place] [address] 06/02/2024 Travel 05/31/2024 9:39 AM CDT - 05/31/2024 11:59 PM CDT Hospital Encounter [facility] 200 [facility] [place] [address] 05/31/2024 Travel 05/29/2024 9:44 AM CDT - 05/29/2024 11:59 PM CDT Hospital Encounter [facility] 200 [facility] [place] [address] 05/28/2024 Travel 05/26/2024 9:48 AM CDT - 05/26/2024 11:59 PM CDT Hospital Encounter [facility] [address] [place] [address] 05/26/2024 Travel 05/24/2024 9:58 AM CDT - 05/24/2024 11:59 PM CDT Hospital Encounter [facility] [address] [place] [address] 05/24/2024 8:15 AM CDT Office Visit [facility] [address] [place] [address] Pamela Oreilly MD Follow Up (Left buttock abscess/) 05/24/2024 Travel 05/23/2024 1:15 PM CDT Office Visit [facility] [address] [place] [address] Bari Toscano MD Follow Up; Arm Pain/problem (Left arm pain and swelling, started about 4 days ) 05/22/2024 9:45 AM CDT - 05/22/2024 11:59 PM CDT Hospital Encounter [facility] [address] [place] [address] 05/22/2024 Travel 05/19/2024 9:41 AM CDT - 05/19/2024 11:59 PM CDT Hospital Encounter [facility] [address] [facility] [address] 05/19/2024 Travel 05/17/2024 9:48 AM CDT - 05/17/2024 11:59 PM CDT Hospital Encounter [facility] [address] [place] [address] 05/17/[address] [facility] [address] [place] [address] Brayden Velázquez MD Refill Request (Prednisone) 05/17/2024 Travel 05/15/2024 10:00 AM CDT - 05/15/2024 11:59 PM CDT Hospital Encounter [facility] [address] [facility] [place] [address] 05/15/2024 Travel 05/12/2024 9:40 AM CDT - 05/12/2024 11:59 PM CDT Hospital Encounter [facility] 200 [place] [address] 05/12/2024 Travel 05/10/2024 9:43 AM CDT - 05/10/2024 11:59 PM CDT Hospital Encounter [facility] [place] [address] 05/10/2024 Travel 05/09/2024 1:45 PM CDT Office Visit [facility] [address] [place] [address] Nessa Serrato MD Follow Up (Left buttock abscess) 05/09/2024 11:20 AM CDT Office Visit [facility] [address] [place] [address] Bari Toscano MD Follow Up (Rash on legs); Fatigue 05/09/[address] [facility] [address] [place] [address] Bari Toscano MD <No scans attached> 05/08/2024 9:46 AM CDT - 05/08/2024 11:59 PM CDT Hospital Encounter [facility] [address] [place] [address] 05/08/2024 Travel 05/05/2024 9:37 AM FIRE CONTROL SYSTEM INSTALLER - 05/05/2024 11:59 PM FIRE CONTROL SYSTEM INSTALLER Hospital Encounter [facility] [address] [place] [address] 05/05/2024 Travel 05/02/2024 2:00 PM FIRE CONTROL SYSTEM INSTALLER Office Visit [facility] [address] [place] [address] Nessa Serrato MD Follow Up (Left buttock abscess) 05/01/2024 9:49 AM FIRE CONTROL SYSTEM INSTALLER - 05/01/2024 11:59 PM FIRE CONTROL SYSTEM INSTALLER Hospital Encounter [facility] [address] [place] [address] 05/01/2024 Travel 04/28/2024 10:00 AM FIRE CONTROL SYSTEM INSTALLER - 04/28/2024 11:59 PM FIRE CONTROL SYSTEM INSTALLER Hospital Encounter [facility] [address] [place] [address] 04/28/2024 Travel 04/26/2024 10:00 AM FIRE CONTROL SYSTEM INSTALLER - 04/26/2024 11:59 PM FIRE CONTROL SYSTEM INSTALLER Hospital Encounter [facility] [address] [place] [address] 04/26/2024 9:00 AM FIRE CONTROL SYSTEM INSTALLER Office Visit [facility] [id number] [place] [address] [address] [place] [address] Melanie Garcia PA Follow Up (6 Week follow up apt. S/P ANGIO - DX;HFrEF (heart failure with reduced ejection fraction) (HC); Abnormal cardiac CT angiography; PINEDA; echo 01/13; ekg 02/10 //pt states he feels tired but has no cardiac sx./) 04/26/2024 Travel 04/25/2024 4:15 PM FIRE CONTROL SYSTEM INSTALLER Office Visit [facility] [address] [place] [address] Nessa Serrato MD Follow Up (Left buttock abscess) 04/25/2024 1:11 PM FIRE CONTROL SYSTEM INSTALLER - 04/25/2024 11:59 PM FIRE CONTROL SYSTEM INSTALLER Hospital Encounter [facility] [address] [place] [address] Bari Toscano MD Jacobs, Katherine Marie, OT Lymphedema 04/24/2024 9:37 AM FIRE CONTROL SYSTEM INSTALLER - 04/24/2024 11:59 PM FIRE CONTROL SYSTEM INSTALLER Hospital Encounter [facility] 200 [place] [address] 04/24/2024 Travel 04/22/[address] [facility] [address] [place] [address] Bari Toscano MD Refill Request (Jardiance) 04/21/2024 9:48 AM FIRE CONTROL SYSTEM INSTALLER - 04/21/2024 11:59 PM FIRE CONTROL SYSTEM INSTALLER Hospital Encounter [facility] [address] [place] [address] 04/21/2024 Travel 04/19/2024 1:09 PM FIRE CONTROL SYSTEM INSTALLER - 04/19/2024 11:59 PM FIRE CONTROL SYSTEM INSTALLER Hospital Encounter [facility] [address] [place] [address] 04/19/2024 9:15 AM FIRE CONTROL SYSTEM INSTALLER Office Visit [facility] [address] [place] [address] Pamela Oreilly MD Consult (Cellulitis on left buttocks) 04/19/2024 Travel 04/17/2024 2:05 PM FIRE CONTROL SYSTEM INSTALLER Office Visit [facility] [address] [place] [address] Bari Toscano MD Follow Up (Cellulitis on left buttock) 04/17/2024 9:57 AM FIRE CONTROL SYSTEM INSTALLER - 04/17/2024 11:59 PM FIRE CONTROL SYSTEM INSTALLER Hospital Encounter [facility] [address] [place] [address] 04/17/2024 Travel 04/16/2024 Orders Only [facility] Scanner 1 scan: (1-Ord) [place], MULTIPLE LABS, 04/16/2024 04/16/2024 Orders Only [facility] Scanner 1 scan: (1-Ord) [facility], PELVIS WO CON, 04/16/2024 04/14/2024 11:20 AM FIRE CONTROL SYSTEM INSTALLER Office Visit [facility] [address] [place] [address] Bari Toscano MD Follow Up (Follow up from 04/13/24/Painful injection site) 04/14/2024 Orders Only [facility] Scanner 1 scan: (1-Ord) [place] ED, US LOWER EXTREMITY RT NON VASCULAR, 04/14/2024 04/13/2024 3:15 PM FIRE CONTROL SYSTEM INSTALLER Ancillary Procedure [facility] [address] [place] [address] 04/13/2024 1:40 PM FIRE CONTROL SYSTEM INSTALLER Office Visit [facility] [address] [place] [address] Bari Toscano MD Derm Problem (Left buttock sore hard/red) 04/13/2024 10:43 AM FIRE CONTROL SYSTEM INSTALLER - 04/13/2024 11:59 PM FIRE CONTROL SYSTEM INSTALLER Hospital Encounter [facility] [address] [place] [address] Mayelin Skinner NP 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/2024 Travel 04/04/2024 11:20 AM FIRE CONTROL SYSTEM INSTALLER Office Visit [facility] [address] [place] [address] Bari Toscano MD Hospital F/U (ANW, 03/10/2024 - 03/20/2024, Three Links, 03/20/2024 - 03/31/2024, triple bypass surgery) 04/04/2024 Travel 03/27/[address] [facility] [phone] Edilma Sutherland NP 03/10/2024 9:21 AM FIRE CONTROL SYSTEM INSTALLER - 03/20/2024 12:15 PM FIRE CONTROL SYSTEM INSTALLER Hospital Encounter [facility] [address] [place] [address] Tonja Redman MD S/P CABG x 3 (Primary Dx); Type 2 diabetes mellitus without complication, without long-term current use of insulin (HC) [facility]charge Disposition[facility] from Last 3 Months Immunizations Immunization Administration Dates Next Due AMB INFLUENZA IIV3 (AGE 65+ YRS) PF (Flu Clinic Only) 12/10/2017 AMB Influenza, IIV3 (Age >=3 years)(Flu Clinic Only) 12/23/2009 Amb Influenza, Inact (High-d ose) (Flu Clinic Only) 11/22/2015,11/30/2014,11/17/2013 COVID-19 VACCINE SPIKEVAX (M ODERNA 50MCG/0.5ML) 12YO+ PFS 06/02/2024,06/09/2023 COVID-19 vaccine (Moderna 100mcg/0.5mL) PF, MDV 12/23/2020,04/29/2020 [...] standard drink = 0.6 oz pure alcohol) 1 GLASSES OF WINE PER DAY; occasional scotch or beer PHQ-2 Answer Date Recorded PHQ-2 TOTAL SCORE 0 06/02/2024 Social Connections Answer Date Recorded Do you [...] on file Legal Sex Male 5:25 AM FIRE CONTROL SYSTEM INSTALLER Gender Identity Not on file Sexual Orientation Not on file Obstetrics History Last Filed Vital Signs Vital Sign Reading Time Taken Comments Blood Pressure 108/68 06/02/2024 10:28 AM CDT Pulse 78 06/02/2024 10:28 AM CDT Temperature 36.8 C (98.2 F) 03/20/2024 7:48 AM FIRE CONTROL SYSTEM INSTALLER Respiratory Rate 20 04/13/2024 3:00 PM FIRE CONTROL SYSTEM INSTALLER Oxygen Saturation 96% 06/02/2024 10: 28 AM CDT Inhaled Oxygen Concentration - - Weight 93.8 kg (206 lb 12.8 oz) 025 10:28 AM CDT Height 170.2 cm (5' 7) 06/02/2024 10:2 8 AM CDT Body Mass Index 32.39 06/02/2024 10:28 AM CDT Plan of Treatment Upcoming Encounters Date Type Department Care Team (Late st Contact Info) Description 06/12/2024 10:00 AM CDT Appointment [address] [address] 06/12/2024 1:40 PM CDT Office Visit [facility] [address] [place] [address] Bari Toscano MD [address] [place] [address] 06/14/2024 10:00 AM CDT Appointment [address] [address] 06/15/2024 2:00 PM CDT Office Visit [facility] [address] [facility] [address] [place] [address] [place] [address] [facility] [address] [place] [address] 06/16/2024 10:00 AM CDT Appointment [address] [address] 06/19/2024 10:00 AM CDT Appointment [address] [address] 06/21/2024 10:[address] [facility] [address] [place] [address] 06/23/2024 10:[address] [facility] [address] [facility] [place] [place] [address] 06/26/2024 10:[address] [facility] [address] [place] [address] 06/28/2024 10:[address] [facility] [address] [place] [address] 06/30/2024 10:[address] [facility] [address] [place] [address] 07/03/2024 10:[address] [facility] [address] [place] [address] 07/05/2024 10:[address] [facility] [address] [place] [address] 09/11/2024 10:30 AM CDT Office Visit [facility] [address] [place] [address] Bari Toscano MD [address] [place] [address] 10/04/2024 Cardiac Device Check [facility] [phone] Health Maintenance Due Date Last Done Comments COVID-19 vaccine series ( season) 2024 06/02/2024, 11/25/2023, 06/09/2023, Additional history exists BMI (ht and wt on same day) for age 18+ 06/02/2025 06/02/2024, 04/26/2024, 03/03/2024, Additional history exists Medicare Wellness for age 65+ 06/03/2025, 06/09/2023, 06/12/2022, Additional history exists Depression screening for age 12+ 06/05/2025 06/05/2024, 06/05/2024, 06/05/2024, Additional history exists Tetanus booster 06/11/2030 06/11/2020, 04/29, 10/22/2006, Additional history exists Zoster (shingles) series for age 50+ Completed 03/06/2019, 12/14/2018, 11/17/2006 Tdap Completed 06/11/2020, 05/09/2010 Pneumococcal series for age 50+ Completed 03/27/2022, 09/21/2014, 12/03/2005, Additional history exists RSV vaccine for adults or Completed 01/19/2023 Influenza Vaccine Completed 11/25/2023, , 12/09/2020, Additional history exists Medical Devices Implanted Type Area Vineyard Supervisor Device Identifier Shelf Expiration Date Model / Serial / Lot Occluder Meghan 40mm Atriclip Flex V Exclusion Sys - [id number] Implanted:Qty: 1 on 03/10/2024 by Tonja Redman MD at [facility] N/A: [employer] 12/30/2024 [id number] / / [id number] Description:AtriCure AtriCli p . SIZE: 40MM. REF: [id number]. LOT: [id number]. Implanted on 03/10/[address] Redman at [facility]. Procedures Procedure Name Priority Date/Time Associated Diagnosis Comments SCAN-CARDIAC REHABILITATION 06/09/2024 9:51 AM CDT SCAN-CARDIAC REHABILITATION 06/07/2024 10:02 AM CDT ECHO TTE COMPLETE WO CONTRAST Routine 06/05/2024 2:20 PM CDT HFrEF (heart failure with reduced ejection fraction) (HC) SOB (shortness of breath) PINEDA (dyspnea on exertion) SCAN-CARDIAC REHABILITATION 06/05/2024 9:57 AM CDT SCAN-CARDIAC REHABILITATION 06/02/2024 8:34 AM CDT SCAN-CARDIAC REHABILITATION 05/31/2024 9:49 AM CDT SCAN-CARDIAC REHABILITATION 05/29/2024 9:52 AM CDT SCAN-CARDIAC REHABILITATION 05/26/2024 9:56 AM CDT SCAN-CARDIAC REHABILITATION 05/24/2024 9:52 AM CDT BASIC METABOLIC PANEL Routine 05/23/2024 1:49 PM CDT Leg swelling LIPID PANEL W REFLEX MEASURED LDL Routine 05/23/2024 1:49 PM CDT Hyperlipidemia, unspecified hyperlipidemia type SCAN-CARDIAC REHABILITATION 05/22/2024 9:53 AM CDT SCAN-CARDIAC REHABILITATION 05/19/2024 9:51 AM CDT SCAN-CARDIAC REHABILITATION 05/17/2024 9:55 AM CDT SCAN-CARDIAC REHABILITATION 05/15/2024 1:27 PM CDT SCAN-CARDIAC REHABILITATION 05/12/2024 9:54 AM CDT SCAN-CARDIAC REHABILITATION 05/10/2024 9:54 AM CDT CBC WITH AUTO DIFFERENTIAL Routine 05/09/2024 11:58 AM CDT Iron deficiency anemia, unspecified iron deficiency anemia type BASIC METABOLIC PANEL Routine 05/09/2024 11:58 AM CDT Leg swelling HEMOGLOBIN A1C MONITORING (POCT) Routine 05/09/2024 11:56 AM CDT Controlled type 2 diabetes mellitus without complication, without long-term current use of insulin (HC) SCAN-CARDIAC REHABILITATION 05/08/2024 9:54 AM CDT SCAN-CARDIAC REHABILITATION 05/05/2024 9:53 AM FIRE CONTROL SYSTEM INSTALLER SCAN-CARDIAC REHABILITATION 05/01/2024 9:59 AM FIRE CONTROL SYSTEM INSTALLER SCAN-CARDIAC REHABILITATION 04/28/2024 1:25 PM FIRE CONTROL SYSTEM INSTALLER GLUCOSE METER Routine 04/26/2024 2:21 PM FIRE CONTROL SYSTEM INSTALLER GLUCOSE METER Routine 04/26/2024 1:28 PM FIRE CONTROL SYSTEM INSTALLER SCAN-CARDIAC REHABILITATION 04/26/2024 1:25 PM FIRE CONTROL SYSTEM INSTALLER GLUCOSE METER Routine 04/24/2024 10:45 AM FIRE CONTROL SYSTEM INSTALLER SCAN-CARDIAC REHABILITATION 04/24/2024 9:56 AM FIRE CONTROL SYSTEM INSTALLER GLUCOSE METER Routine 04/24/2024 9:49 AM FIRE CONTROL SYSTEM INSTALLER GLUCOSE METER Routine 04/21/2024 10:54 AM FIRE CONTROL SYSTEM INSTALLER GLUCOSE METER Routine 04/21/2024 10:09 AM FIRE CONTROL SYSTEM INSTALLER SCAN-CARDIAC REHABILITATION 04/21/2024 9:56 AM FIRE CONTROL SYSTEM INSTALLER GLUCOSE METER Routine 04/19/2024 2:20 PM FIRE CONTROL SYSTEM INSTALLER SCAN-CARDIAC REHABILITATION 04/19/2024 1:32 PM FIRE CONTROL SYSTEM INSTALLER GLUCOSE METER Routine 04/19/2024 1:31 PM FIRE CONTROL SYSTEM INSTALLER AMB PROC DOC INCISION AND DRAINAGE Routine 04/19/2024 10:17 AM FIRE CONTROL SYSTEM INSTALLER Left buttock abscess GLUCOSE METER Routine 04/17/2024 10:32 AM FIRE CONTROL SYSTEM INSTALLER GLUCOSE METER Routine 04/17/2024 10:14 AM FIRE CONTROL SYSTEM INSTALLER SCAN-CARDIAC REHABILITATION 04/17/2024 9:50 AM FIRE CONTROL SYSTEM INSTALLER SCAN-CARDIAC REHABILITATION 04/17/2024 9:50 AM FIRE CONTROL SYSTEM INSTALLER SCAN-LABORATORY REPORT 12:00 AM FIRE CONTROL SYSTEM INSTALLER SCAN-CT INTERPRETATION 5 12:00 AM FIRE CONTROL SYSTEM INSTALLER SCAN-ULTRASOUND REPORT 5 12:00 AM FIRE CONTROL SYSTEM INSTALLER US LOWER EXTREMITY SOFT TISSUE LEFT STAT 04/13/2024 2:49 PM FIRE CONTROL SYSTEM INSTALLER Leg swelling SCAN-CARDIAC REHABILITATION 04/13/2024 12:04 PM FIRE CONTROL SYSTEM INSTALLER CBC WITH AUTO DIFFERENTIAL Routine 03/28/2024 8:03 AM FIRE CONTROL SYSTEM INSTALLER Anemia, unspecified CBC WITH AUTO DIFFERENTIAL Routine 03/28/2024 8:03 AM FIRE CONTROL SYSTEM INSTALLER Anemia, unspecified SCAN-CARDIAC STRIP 03/20/2024 8: 42 AM FIRE CONTROL SYSTEM INSTALLER GLUCOSE METER Timed 03/20/2024 7:49 AM FIRE CONTROL SYSTEM INSTALLER HEMOGLOBIN Early AM 03/20/2024 6:42 AM FIRE CONTROL SYSTEM INSTALLER BASIC METABOLIC PANEL Early AM 03/20/2024 6:42 AM FIRE CONTROL SYSTEM INSTALLER SCAN-CARDIAC STRIP 03/20/2024 1: 16 AM FIRE CONTROL SYSTEM INSTALLER GLUCOSE METER Timed 03/19/2024 9:32 PM FIRE CONTROL SYSTEM INSTALLER GLUCOSE METER Timed 03/19/2024 5:23 PM FIRE CONTROL SYSTEM INSTALLER SCAN-CARDIAC STRIP 03/19/2024 12 :24 PM FIRE CONTROL SYSTEM INSTALLER GLUCOSE METER Timed 03/19/2024 11:31 AM FIRE CONTROL SYSTEM INSTALLER GLUCOSE METER Timed 03/19/2024 8:26 AM FIRE CONTROL SYSTEM INSTALLER HEMOGLOBIN Early AM 03/19/2024 5:52 AM FIRE CONTROL SYSTEM INSTALLER SCAN-CARDIAC STRIP 03/19/2024 4: 13 AM FIRE CONTROL SYSTEM INSTALLER POTASSIUM Timed 03/18/2024 7:32 PM FIRE CONTROL SYSTEM INSTALLER GLUCOSE METER Timed 03/18/2024 5:37 PM FIRE CONTROL SYSTEM INSTALLER SCAN-CARDIAC STRIP 03/18/2024 4: 00 PM FIRE CONTROL SYSTEM INSTALLER GLUCOSE METER Timed 03/18/2024 7:27 AM FIRE CONTROL SYSTEM INSTALLER HEMOGLOBIN Early AM 03/18/2024 6:33 AM FIRE CONTROL SYSTEM INSTALLER BASIC METABOLIC PANEL Early AM 03/18/2024 6:33 AM FIRE CONTROL SYSTEM INSTALLER GLUCOSE METER Timed 03/17/2024 5:32 PM FIRE CONTROL SYSTEM INSTALLER SCAN-CARDIAC STRIP 03/17/2024 3: 37 PM FIRE CONTROL SYSTEM INSTALLER POTASSIUM Timed 03/17/2024 11:49 AM FIRE CONTROL SYSTEM INSTALLER HEMOGLOBIN Today 03/17/2024 11:49 AM FIRE CONTROL SYSTEM INSTALLER SCAN-CARDIAC STRIP 03/17/2024 9: 40 AM FIRE CONTROL SYSTEM INSTALLER HEMOGLOBIN Early AM 03/17/2024 6:56 AM FIRE CONTROL SYSTEM INSTALLER BASIC METABOLIC PANEL Early AM 03/17/2024 6:56 AM FIRE CONTROL SYSTEM INSTALLER GLUCOSE METER Timed 03/16/2024 9:17 PM FIRE CONTROL SYSTEM INSTALLER GLUCOSE METER Timed 03/16/2024 4:17 PM FIRE CONTROL SYSTEM INSTALLER GLUCOSE METER Timed 03/16/2024 12:35 PM FIRE CONTROL SYSTEM INSTALLER SCAN-CARDIAC STRIP 03/16/2024 9: 18 AM FIRE CONTROL SYSTEM INSTALLER GLUCOSE METER Timed 03/16/2024 7:43 AM FIRE CONTROL SYSTEM INSTALLER MAGNESIUM Early AM 03/16/2024 7:05 AM FIRE CONTROL SYSTEM INSTALLER BASIC METABOLIC PANEL Early AM 03/16/2024 7:05 AM FIRE CONTROL SYSTEM INSTALLER HEMOGLOBIN Early AM 03/16/2024 7:04 AM FIRE CONTROL SYSTEM INSTALLER SCAN-CARDIAC STRIP 03/16/2024 1: 39 AM FIRE CONTROL SYSTEM INSTALLER SCAN-CARDIAC STRIP 03/15/2024 10 :18 PM FIRE CONTROL SYSTEM INSTALLER GLUCOSE METER Timed 03/15/2024 9:11 PM FIRE CONTROL SYSTEM INSTALLER GLUCOSE METER Timed 03/15/2024 4:39 PM FIRE CONTROL SYSTEM INSTALLER POTASSIUM Timed 03/15/2024 2:58 PM FIRE CONTROL SYSTEM INSTALLER GLUCOSE METER Timed 03/15/2024 11:13 AM FIRE CONTROL SYSTEM INSTALLER GLUCOSE METER Timed 03/15/2024 7:42 AM FIRE CONTROL SYSTEM INSTALLER BASIC METABOLIC PANEL Early AM 03/15/2024 6:15 AM FIRE CONTROL SYSTEM INSTALLER CBC W PLT NO DIFF Early AM 03/15/2024 6:1 5 AM FIRE CONTROL SYSTEM INSTALLER MAGNESIUM Early AM 03/15/2024 6:15 AM FIRE CONTROL SYSTEM INSTALLER SCAN-CARDIAC STRIP 03/15/2024 12 :37 AM FIRE CONTROL SYSTEM INSTALLER GLUCOSE METER Timed 03/14/2024 8:56 PM FIRE CONTROL SYSTEM INSTALLER GLUCOSE METER Timed 03/14/2024 5:27 PM FIRE CONTROL SYSTEM INSTALLER SCAN-CARDIAC STRIP 03/14/2024 3: 10 PM FIRE CONTROL SYSTEM INSTALLER GLUCOSE METER Timed 03/14/2024 12:43 PM FIRE CONTROL SYSTEM INSTALLER GLUCOSE METER Timed 03/14/2024 9:29 AM FIRE CONTROL SYSTEM INSTALLER POTASSIUM Early AM 03/14/2024 6:26 AM FIRE CONTROL SYSTEM INSTALLER MAGNESIUM Early AM 03/14/2024 6:26 AM FIRE CONTROL SYSTEM INSTALLER SCAN-CARDIAC STRIP 03/13/2024 10 :58 PM FIRE CONTROL SYSTEM INSTALLER GLUCOSE METER Timed 03/13/2024 9:21 PM FIRE CONTROL SYSTEM INSTALLER GLUCOSE METER Timed 03/13/2024 5:18 PM FIRE CONTROL SYSTEM INSTALLER EKG 12 LEAD STAT 03/13/2024 1:09 PM FIRE CONTROL SYSTEM INSTALLER GLUCOSE METER Timed 03/13/2024 11:58 AM FIRE CONTROL SYSTEM INSTALLER SCAN-CARDIAC STRIP 03/13/2024 9: 12 AM FIRE CONTROL SYSTEM INSTALLER PHOSPHORUS Early AM 03/13/2024 8:22 AM FIRE CONTROL SYSTEM INSTALLER MAGNESIUM Early AM 03/13/2024 8:22 AM FIRE CONTROL SYSTEM INSTALLER CALCIUM IONIZED HOSPITAL DRAW ONLY Early AM 03/13/2024 8:22 AM FIRE CONTROL SYSTEM INSTALLER BASIC METABOLIC PANEL Early AM 03/13/2024 8:22 AM FIRE CONTROL SYSTEM INSTALLER CBC W PLT NO DIFF Early AM 03/13/2024 8:2 2 AM FIRE CONTROL SYSTEM INSTALLER PROTIME-INR Early AM 03/13/2024 8:22 AM FIRE CONTROL SYSTEM INSTALLER XR CHEST 1 VIEW PORTABLE Routine 03/13/2024 8:13 AM FIRE CONTROL SYSTEM INSTALLER GLUCOSE METER Timed 03/13/2024 8:04 AM FIRE CONTROL SYSTEM INSTALLER SCAN-CARDIAC STRIP 03/13/2024 1: 29 AM FIRE CONTROL SYSTEM INSTALLER from Last 3 Months Results * SCAN-CARDIAC REHABILITATION (06/09/2024 9:51 AM CDT) Only the most recent of25 resultswithin the time period is included. us Scanner OTHER Final Result * ECHO TTE COMPLETE WO CONTRAST (06/05/2024 2:20 PM CDT) AORTIC VALVE MEAN PG 3 mmHg EJECTION FRACTION 51 % PEAK TR VELOCITY 2.6 m/s LVEDD 5.3 cm EJECTION FRACTION 45 - 50% Anatomical Region Laterality Modality Ultrasound 06/05/2024 2:07 PM CDT Narrative 06/05/2024 2:48 PM CDT ECHOCARDIOGRAM MAC YARBROUGH : 1940 84 years Study Date: 06/05/2024 2:07:22 PM Gender: M BP: 108/68 mmHg Height: 170.00 cm BSA: 2.05 m Weight: 94.00 kg Tech: NWA Referring MD: MELANIE ALEXANDRA CASE Site: [facility] Reading Location: Mobile-OP Patient Location: Outpatient. Procedure: 2D, Color Doppler and Spectral Doppler. Indication for study: Heart failure,SOB, PINEDA Cardiac Rhythm: Regular.Study quality: Good. Final Impressions: 1. Normal LV size, estimated EF of 45 - 50%. 2. Dysynchronous LV activation pattern. 3. Normal RV size and systolic function. 4. Indeterminate pattern of LV diastolic filling. 5. The mitral valve is normal, mild to moderate regurgitation. 6. No other significant valvular disease. 7. The inferior vena cava is normal sized, respiratory size variation greater than 50%. Comparison Compared to prior exam of 01/17/24, there has been no significant change. Contrast should be used on future studies. Chamber Sizes and Function Normal left ventricular size, normal wall thickness, mildly reduced global systolic function with an estimated EF of 45 - 50%. No resting regional wall motion abnormality visualized. Left atrial size is normal. Right ventricular cavity size is normal, global systolic RV function is normal. RV wall thickness is normal. The right atrium is mildly enlarged. Right atrial volume index is 26 ml/m . Right atrial area is 20 cm . The pulmonary artery is of normal size and origin. The sinus of Valsalva is normal sized. The ascending aorta is normal sized. Valves, RV Pressures and Diastolic Function The aortic valve is normal in structure and trileaflet, no stenosis and no regurgitation. The mitral valve is normal in structure, mild to moderate mitral regurgitation. Indeterminate pattern of LV diastolic filling. The tricuspid valve is normal in structure and mild tricuspid regurgitation. The tricuspid regurgitant velocity is 2.6 m/s, the estimated right ventricular systolic pressure is 27 mmHg plus right atrial pressure. The pulmonic valve is normal. Mild-moderate pulmonary regurgitation. Masses, Effusion, Shunts There is no pericardial effusion. The inferior vena cava is normal sized, respiratory size variation greater than 50%. No left to right shunting was detected by limited color flow Doppler interrogation of the interatrial septum. MEASUREMENTS AND CALCULATIONS 2-D Measurements and LV Function: LVID (d) 5.3 cm LV FS% (2D) 29 % LVID (s) 3.8 cm HR 86 bpm IVS (d) 1.0 cm LA Vol index 27 ml/m2 LVPW (d) 1.4 cm RA Vol index 26 ml/m2 Ao Sinus 3.6 cm RA area 20 cm Ao Sinus ULN 4.2 cm * Asc Ao 4.0 cm Asc Ao ULN 4.4 cm * LA 4.6 cm * Input age outside of range, reported values correspond to Age = 78 Diastology: Mitral Tissue Doppler E Peak 0.8 m/s e', Septum 0.07 m/s A Peak 0.4 m/s e', Lateral 0.14 m/s E/A 2.1 E/e' Average 7.72 DT 252 msec Aortic Valve: Vmax 1.1 m/s Max PG 5 mmHg VTI 0.26 m Mean PG 3 mmHg LVOT V max 1.0 m/s Dim Index 0.78 LVOT VTI 0.20 m Mitral Valve: MVA 3.0 cm MV P 1/2 73 msec Tricuspid Valve and estimated PA pressures: TR Vmax 2.6 m/s TAPSE 1.3 cm TR maxG 27 mmHg Pulmonic Valve: PV Vmax 0.7 m/s PIEDV 1.4 m/s . This study was interpreted by an [facility] accredited facility. Final Procedure Note Patrice Briseno MD - 06/05/2024 ECHOCARDIOGRAM MAC YARBROUGH : 1940 84 years Study Date: 06/05/2024 2:07:22 PM Gender: M BP: 108/68 mmHg Height: 170.00 cm BSA: 2.05 m Weight: 94.00 kg Tech: EKATERINA Referring MD: MELANIE ALEXANDRA CASE Site: [facility] Reading Location: Mobile-OP Patient Location: Outpatient. Procedure: 2D, Color Doppler and Spectral Doppler. Indication for study: Heart failure,SOB, PINEDA Cardiac Rhythm: Regular.Study quality: Good. Final Impressions: 1. Normal LV size, estimated EF of 45 - 50%. 2. Dysynchronous LV activation pattern. 3. Normal RV size and systolic function. 4. Indeterminate pattern of LV diastolic filling. 5. The mitral valve is normal, mild to moderate regurgitation. 6. No other significant valvular disease. 7. The inferior vena cava is normal sized, respiratory size variationgreater than 50%. Comparison Compared to prior exam of 01/17/24, there has been no significantchange. Contrast should be used on future studies. Chamber Sizes and Function Normal left ventricular size, normal wall thickness, mildly reduced globalsystolic function with an estimated EF of 45 - 50%. No resting regionalwall motion abnormality visualized. Left atrial size is normal. Rightventricular cavity size is normal, global systolic RV function is normal.RV wall thickness is normal. The right atrium is mildly enlarged. Rightatrial volume index is 26 ml/m . Right atrial area is 20 cm . Thepulmonary artery is of normal size and origin. The sinus of Valsalva isnormal sized. The ascending aorta is normal sized. Valves, RV Pressures and Diastolic Function The aortic valve is normal in structure and trileaflet, no stenosis and noregurgitation. The mitral valve is normal in structure, mild to moderatemitral regurgitation. Indeterminate pattern of LV diastolic filling. Thetricuspid valve is normal in structure and mild tricuspid regurgitation.The tricuspid regurgitant velocity is 2.6 m/s, the estimated rightventricular systolic pressure is 27 mmHg plus right atrial pressure. Thepulmonic valve is normal. Mild-moderate pulmonary regurgitation. Masses, Effusion, Shunts There is no pericardial effusion. The inferior vena cava is normal sized,respiratory size variation greater than 50%. No left to right shunting wasdetected by limited color flow Doppler interrogation of the interatrialseptum. MEASUREMENTS AND CALCULATIONS 2-D Measurements and LV Function: LVID (d) 5.3 cm LV FS% (2D) 29% LVID (s) 3.8 cm HR 86bpm IVS (d) 1.0 cm LA Vol index 27ml/m2 LVPW (d) 1.4 cm RA Vol index 26ml/m2 Ao Sinus 3.6 cm RA area 20cm Ao Sinus ULN 4.2 cm * Asc Ao 4.0 cm Asc Ao ULN 4.4 cm * LA 4.6 cm * Input age outside of range, reported values correspond to Age = 78 Diastology: Mitral Tissue Doppler E Peak 0.8 m/s e', Septum 0.07 m/s A Peak 0.4 m/s e', Lateral 0.14 m/s E/A 2.1 E/e' Average 7.72 DT 252 msec Aortic Valve: Vmax 1.1 m/s Max PG 5 mmHg VTI 0.26 m Mean PG 3 mmHg LVOT V max 1.0 m/s Dim Index 0.78 LVOT VTI 0.20 m Mitral Valve: MVA 3.0 cm MV P 1/2 73 msec Tricuspid Valve and estimated PA pressures: TR Vmax 2.6 m/s TAPSE 1.3 cm TR maxG 27 mmHg Pulmonic Valve: PV Vmax 0.7 m/s PIEDV 1.4 m/s . This study was interpreted by an [facility] accredited facility. Final us Melanie GIL ECHO ORD Final Res ult * LIPID PANEL W REFLEX MEASURED LDL (05/23/2024 1:49 PM CDT) CHOLESTEROL, TOTAL 92 <200 mg/dL [facility] HDL CHOLESTEROL 40 > OR = 40 mg/dL [facility] TRIGLYCERIDES 87 <150 mg/dL [facility] LDL-CHOLESTEROL 35 mg/dL (calc) [facility] Comment: Reference range: <100 Desirable range <100 mg/dL for primary prevention; <70 mg/dL for patients with CHD or diabetic patients with > or = 2 CHD risk factors. LDL-C is now calculated using the Magui calculation, which is a validated novel method providing better accuracy than the Friedewald equation in the estimation of LDL-C. Frandy SS et al. KAMILA. 2013;310(19): 8367-3884 (http://education.[employer]/faq/BWZ659) CHOL/HDLC RATIO 2.3 <5.0 (calc) [facility] NON HDL CHOLESTEROL 52 <130 mg/dL (calc) [facility] Comment: For patients with diabetes plus 1 major ASCVD risk factor, treating to a non-HDL-C goal of <100 mg/dL (LDL-C of <70 mg/dL) is considered a therapeutic option. Blood BLOOD SPECIMEN / Unknown 05/23/2024 1:49 PM CDT 05/23/2024 1:49 PM CDT Bari Toscano MD CHEMISTRY Final Result [employer] [facility] [address] [place] [address], [facility] [address] [place] [address] * (ABNORMAL) BASIC METABOLIC PANEL (05/23/2024 1:49 PM CDT) Only the most recent of8 resultswithin the time period is included. GLUCOSE 197(H) 65 - 99 mg/dL [facility] Comment: Fasting reference interval For someone without known diabetes, a glucose value >125 mg/dL indicates that they may have diabetes and this should be confirmed with a follow-up test. UREA NITROGEN (BUN) 25 7 - 25 mg/dL [facility] CREATININE 1.13 0.70 - 1.22 mg/dL [facility] EGFR 63 > OR = 60 mL/min/1. 73m2 [facility] BUN/CREATININE RATIO SEE NOTE: 6 - 22 (calc) [facility] Comment: Not Reported: BUN and Creatinine are within reference range. SODIUM 138 135 - 146 mmol/L [facility] POTASSIUM 4.3 3.5 - 5.3 mmol/L [facility] CHLORIDE 104 98 - 110 mmol/L [facility] CARBON DIOXIDE 22 20 - 32 mmol/L [facility] ELECTROLYTE BALANCE 12 7 - 17 mmol/L (calc) [facility] CALCIUM 9.1 8.6 - 10.3 mg/dL [facility] Blood BLOOD SPECIMEN / Unknown 05/23/2024 1:49 PM CDT 05/23/2024 1:49 PM CDT Bari Toscano MD CHEMISTRY Final Result [employer] [facility] [address] [place] [address], [facility] [address] * (ABNORMAL) CBC AND DIFFERENTIAL (05/09/2024 11:58 AM CDT) WHITE BLOOD CELL COUNT 7.0 3.8 - 10.8 Thousand/u L [facility] RED BLOOD CELL COUNT 4.14(L) 4.20 - 5.80 Million/uL [facility] HEMOGLOBIN 10.6(L) 13.2 - 17.1 g/dL [facility] HEMATOCRIT 35.7(L) 38.5 - 50.0 % [facility] MCV 86.2 80.0 - 100.0 fL [facility] MCH 25.6(L) 27.0 - 33.0 pg [facility] MCHC 29.7(L) 32.0 - 36.0 g/dL [facility] Comment: For adults, a slight decrease in the calculated MCHC value (in the range of 30 to 32 g/dL) is most likely not clinically significant; however, it should be interpreted with caution in correlation with other red cell parameters and the patient's clinical condition. RDW 15.0 11.0 - 15.0 % [facility] PLATELET COUNT 206 140 - 400 Thousand/u L [facility] MPV 12.3 7.5 - 12.5 fL [facility] ABSOLUTE NEUTROPHILS 3,955 1,500 - 7,800 cells/uL [facility] ABSOLUTE LYMPHOCYTES 1,617 850 - 3,900 cells/uL [facility] ABSOLUTE MONOCYTES 672 200 - 950 cells/uL [facility] ABSOLUTE EOSINOPHILS 735(H) 15 - 500 cells/uL [facility] ABSOLUTE BASOPHILS 21 0 - 200 cells/uL [facility] NEUTROPHILS 56.5 % [facility] LYMPHOCYTES 23.1 % [facility] MONOCYTES 9.6 % [facility] EOSINOPHILS 10.5 % [facility] BASOPHILS 0.3 % [facility] Blood BLOOD SPECIMEN / Unknown 05/09/2024 11:58 AM CDT 05/09/2024 11:58 AM CDT Brai Toscano MD HEMATOLOGY Final Result [facility] [address] [place] [address], [facility] [address] [place] [address] * (ABNORMAL) HEMOGLOBIN A1C MONITORING (POCT) (05/09/2024 11:56 AM CDT) Pathologist [facility] POC HEMOGLOBIN A1C 6.7(H) <6.0 % OF TOTAL HGB [facility] Comment: Any point of care results exhibiting inconsistency with the patient's clinical status should be repeated using a different testing method. Blood BLOOD SPECIMEN / Unknown 05/09/2024 11:56 AM CDT 05/09/2024 11:57 AM CDT Bari Toscano MD CHEMISTRY Final Result Performing Organization Address City/[facility]/ZIP Co de Phone Number [facility] [address] [place] [address], [facility] [address] [place] [address] * (ABNORMAL) GLUCOSE METER (04/26/2024 2:21 PM FIRE CONTROL SYSTEM INSTALLER) Only the most recent of34 resultswithin the time period is included. [facility] GLUCOSE METER 272(H) 65 - 100 mg/dL 04/26/2024 2:24 PM FIRE CONTROL SYSTEM INSTALLER [facility] Blood BLOOD SPECIMEN / Unknown 04/26/2024 2:21 PM FIRE CONTROL SYSTEM INSTALLER 04/26/2024 2:23 PM FIRE CONTROL SYSTEM INSTALLER us Doctor Unknown CHEMISTRY Final Result Performing Organization Address [facility] Co de Phone Number [facility] [address] [place] [address] * Incision and Drainage (04/19/2024 10:17 AM FIRE CONTROL SYSTEM INSTALLER) Narrative Pamela Oreilly MD - 04/19/2024 10:17 AM FIRE CONTROL SYSTEM INSTALLER Pamela Oreilly MD 04/19/2024 10:19 AM Incision and Drainage Date/Time: 04/19/2024 10:17 AM Performed by: Pamela Oreilly MD Authorized by: Pamela Oreilly MD Type: abscess Location: Left buttock. Anesthesia: local infiltration Anesthesia: Local Anesthetic: lidocaine 1% with epinephrine Anesthetic total: 2 mL Sedation: Patient sedated: no Risk factor: coagulopathy Scalpel size: 11 Incision type: crucifix. Incision depth: subcutaneous Complexity: simple Drainage: purulent and serous Drainage amount: scant Wound treatment: wound left open Packing material: 1/4 in iodoform gauze Patient tolerance: patient tolerated the procedure well with no immediate complications Comments: Silver nitrate applied us Pamela Oreilly MD PROCEDURE ORD Final Re sult * SCAN-LABORATORY REPORT (04/16/2024 12:00 AM FIRE CONTROL SYSTEM INSTALLER) us Scanner OTHER Final Result * SCAN-CT INTERPRETATION (04/16/2024 12:00 AM FIRE CONTROL SYSTEM INSTALLER) Anatomical Region Laterality Modality Other us Scanner OTHER Final Result * SCAN-ULTRASOUND REPORT (04/14/2024 12:00 AM FIRE CONTROL SYSTEM INSTALLER) Anatomical Region Laterality Modality Other us Scanner OTHER Final Result * US LOWER EXTREMITY SOFT TISSUE LEFT (04/13/2024 2:49 PM FIRE CONTROL SYSTEM INSTALLER) Anatomical Region Laterality Modality ARM R Ultrasound 04/13/2024 3:00 PM FIRE CONTROL SYSTEM INSTALLER Narrative 04/13/2024 3:00 PM FIRE CONTROL SYSTEM INSTALLER For Patients: As a result of the [...] @ 04/13/2024 3:00:08 PM (Electronically Signed) us Bari Toscaon MD US Final Result * (ABNORMAL) CBC WITH AUTO DIFFERENTIAL (03/28/2024 8:03 AM [facility]) WHITE BLOOD COUNT 7.8 4.5 - 11.0 thou/cu mm 03/28/2024 8:48 AM [facility] RED BLOOD COUNT 3.41(L) 4.30 - 5.90 mil/cu mm 03/28/2024 8:48 AM [facility] HEMOGLOBIN 9.9(L) 13.5 - 17.5 g/dL 03/28/2024 8:48 AM [facility] HEMATOCRIT 33.1(L) 37.0 - 53.0 % 03/28/2024 8:48 AM [facility] MCV 97 80 - 100 fL 03/28/2024 8:48 AM [facility] MCH 29.0 26.0 - 34.0 pg 03/28/2024 8:48 AM [facility] MCHC 29.9(L) 32.0 - 36.0 g/dL 03/28/2024 8:48 AM [facility] RDW 14.6 11.5 - 15.5 % 03/28/2024 8:48 AM [facility] PLATELET COUNT 324 140 - 440 thou/cu mm 03/28/2024 8:48 AM [facility] MPV 10.2 6.5 - 11.0 fL 03/28/2024 8:48 AM [facility] % NEUT 68.9 % 03/28/2024 8:48 AM [facility] % LYMPH 17.7 % 03/28/2024 8:48 AM [facility] % MONO 8.9 % 03/28/2024 8:48 AM [facility] % EOS 4.4 % 03/28/2024 8:48 AM [facility] % BASO 0.1 % 03/28/2024 8:48 AM [facility] ABSOLUTE NEUTROPHILS 5.4 1.7 - 7.0 thou/cu mm 03/28/2024 8:48 AM [facility] ABSOLUTE LYMPHOCYTES 1.4 0.9 - 2.9 thou/cu mm 03/28/2024 8:48 AM [facility] ABSOLUTE MONOCYTES 0.7 <0.9 thou/cu mm 03/28/2024 8:48 AM [facility] ABSOLUTE EOSINOPHILS 0.3 <0.5 thou/cu mm 03/28/2024 8:48 AM [facility] ABSOLUTE BASOPHILS 0.0 <0.3 thou/cu mm 03/28/2024 8:48 AM [facility] Blood BLOOD SPECIMEN / Unknown Butterfly / Unknown 03/28/2024 8:03 AM FIRE CONTROL SYSTEM INSTALLER 03/28/2024 8:35 AM FIRE CONTROL SYSTEM INSTALLER us Edilma Sutherland FLOORING SALESPERSON HEMATOLOGY Final Resul t [facility] [address] [place] [id number] * SCAN-CARDIAC STRIP (03/20/2024 8:42 AM FIRE CONTROL SYSTEM INSTALLER) us Scanner OTHER Final Result * (ABNORMAL) HEMOGLOBIN (03/20/2024 6:42 AM FIRE CONTROL SYSTEM INSTALLER) Only the most recent of6 resultswithin the time period is included. HEMOGLOBIN 10.1(L) 13.5 - 17.5 g/dL 03/20/2024 7:07 AM [facility] MCV 93 80 - 100 fL 03/20/2024 7:07 AM [facility] Blood BLOOD SPECIMEN / Unknown Venipuncture / Unknown 03/20/2024 6:42 AM FIRE CONTROL SYSTEM INSTALLER 03/20/2024 6:53 AM FIRE CONTROL SYSTEM INSTALLER us Anila Palacios NP HEMATOLOGY Final R esult Performing Organization Address [facility] Co de Phone Number [facility] [address] [address], [place] * SCAN-CARDIAC STRIP (03/20/2024 1:16 AM FIRE CONTROL SYSTEM INSTALLER) us Scanner OTHER Final Result * SCAN-CARDIAC STRIP (03/19/2024 12:24 PM FIRE CONTROL SYSTEM INSTALLER) us Scanner OTHER Final Result * SCAN-CARDIAC STRIP (03/19/2024 4:13 AM FIRE CONTROL SYSTEM INSTALLER) us Scanner OTHER Final Result * POTASSIUM (03/18/2024 7:32 PM FIRE CONTROL SYSTEM INSTALLER) Only the most recent of4 resultswithin the time period is included. [facility] POTASSIUM 4.1 3.5 - 5.1 mmol/L 03/18/2024 7:56 PM FIRE CONTROL SYSTEM INSTALLER [facility] Blood BLOOD SPECIMEN / Unknown Venipuncture / Unknown 03/18/2024 7:32 PM FIRE CONTROL SYSTEM INSTALLER 03/18/2024 7:38 PM FIRE CONTROL SYSTEM INSTALLER us Tonja eRdman MD CHEMISTRY Final Res ult Performing Organization Address [facility] Co de Phone Number [facility] [address] [address], [place] * SCAN-CARDIAC STRIP (03/18/2024 4:00 PM FIRE CONTROL SYSTEM INSTALLER) us Scanner OTHER Final Result * SCAN-CARDIAC STRIP (03/17/2024 3:37 PM FIRE CONTROL SYSTEM INSTALLER) us Scanner OTHER Final Result * SCAN-CARDIAC STRIP (03/17/2024 9:40 AM FIRE CONTROL SYSTEM INSTALLER) us Scanner OTHER Final Result * SCAN-CARDIAC STRIP (03/16/2024 9:18 AM FIRE CONTROL SYSTEM INSTALLER) us Scanner OTHER Final Result * MAGNESIUM (03/16/2024 7:05 AM FIRE CONTROL SYSTEM INSTALLER) Only the most recent of4 resultswithin the time period is included. [facility] MAGNESIUM 2.1 1.6 - 2.4 mg/dL 03/16/2024 7:46 AM FIRE CONTROL SYSTEM INSTALLER [facility] Blood BLOOD SPECIMEN / Unknown Venipuncture / Unknown 03/16/2024 7:05 AM FIRE CONTROL SYSTEM INSTALLER 03/16/2024 7:11 AM FIRE CONTROL SYSTEM INSTALLER us Tonja Redman MD CHEMISTRY Final Res ult [facility] [address] [place] [address], [place] * SCAN-CARDIAC STRIP (03/16/2024 1:39 AM FIRE CONTROL SYSTEM INSTALLER) us Scanner OTHER Final Result * SCAN-CARDIAC STRIP (03/15/2024 10:18 PM FIRE CONTROL SYSTEM INSTALLER) us Scanner OTHER Final Result * (ABNORMAL) CBC W PLT NO DIFF (03/15/2024 6:15 AM FIRE CONTROL SYSTEM INSTALLER) Only the most recent of2 resultswithin the time period is included. [facility] WHITE BLOOD COUNT 10.0 4.5 - 11.0 thou/cu mm 03/15/2024 6:35 AM FIRE CONTROL SYSTEM INSTALLER [facility] RED BLOOD COUNT 2.98(L) 4.30 - 5.90 mil/cu mm 03/15/2024 6:35 AM FIRE CONTROL SYSTEM INSTALLER [facility] HEMOGLOBIN 9.1(L) 13.5 - 17.5 g/dL 03/15/2024 6:35 AM FIRE CONTROL SYSTEM INSTALLER [facility] HEMATOCRIT 28.2(L) 37.0 - 53.0 % 03/15/2024 6:35 AM [facility] MCV 95 80 - 100 fL 03/15/2024 6:35 AM [facility] MCH 30.5 26.0 - 34.0 pg 03/15/2024 6:35 AM [facility] MCHC 32.3 32.0 - 36.0 g/dL 03/15/2024 6:35 AM [facility] RDW 14.1 11.5 - 15.5 % 03/15/2024 6:35 AM [facility] PLATELET COUNT 162 140 - 440 thou/cu mm 03/15/2024 6:35 AM [facility] MPV 10.9 6.5 - 11.0 fL 03/15/2024 6:35 AM [facility] NRBC 0.0 % 03/15/2024 6:35 AM [facility] ABS NRBC 0.0 thou /cu mm 03/15/2024 6:35 AM [facility] Blood BLOOD SPECIMEN / Unknown Venipuncture / Unknown 03/15/2024 6:15 AM FIRE CONTROL SYSTEM INSTALLER 03/15/2024 6:30 AM FIRE CONTROL SYSTEM INSTALLER us Mayelin Skinner NP HEMATOLOGY Final Result [facility] [address] [place] [address], * SCAN-CARDIAC STRIP (03/15/2024 12:37 AM FIRE CONTROL SYSTEM INSTALLER) us Scanner OTHER Final Result * SCAN-CARDIAC STRIP (03/14/2024 3:10 PM FIRE CONTROL SYSTEM INSTALLER) us Scanner OTHER Final Result * SCAN-CARDIAC STRIP (03/13/2024 10:58 PM FIRE CONTROL SYSTEM INSTALLER) us Scanner OTHER Final Result * EKG 12 LEAD (03/13/2024 1:09 PM FIRE CONTROL SYSTEM INSTALLER) [facility] Interpretation Ventricular-paced rhythm with occasional and consecutive supraventricular complexes Abnormal ECG When compared with ECG of 11-Mar-2024 13:10, No significant change was found Anterior T wave inversion BEYOND NOW Ventricular Rate 70 BPM BEYOND NOW Atrial Rate 71 BPM BEYOND NOW P-R Interval ms BEYOND NOW QRS Duration 146 ms BEYOND NOW QT 434 ms BEYOND NOW QTc 468 ms BEYOND NOW P Powell degrees BEYOND NOW R Powell 47 degrees BEYOND NOW T Powell 0 degrees BEYOND NOW 03/13/2024 1:09 PM FIRE CONTROL SYSTEM INSTALLER 03/14/2024 5:29 PM FIRE CONTROL SYSTEM INSTALLER us Mayelin Skinner FLOORING SALESPERSON EKG ORD Final Result Performing Organization Address [facility] de Phone Number BEYOND NOW [place], [place] * SCAN-CARDIAC STRIP (03/13/2024 9:12 AM FIRE CONTROL SYSTEM INSTALLER) us Scanner OTHER Final Result * Protime-INR (03/13/2024 8:22 AM FIRE CONTROL SYSTEM INSTALLER) [facility] INR 1.0 <1.3 03/13/2024 8:49 AM FIRE CONTROL SYSTEM INSTALLER [facility] PROTIME 11.9 10.6 - 12.4 sec 03/13/2024 8:49 AM FIRE CONTROL SYSTEM INSTALLER [facility] Blood BLOOD SPECIMEN / Unknown Venipuncture / Unknown 03/13/2024 8:22 AM FIRE CONTROL SYSTEM INSTALLER 03/13/2024 8:33 AM FIRE CONTROL SYSTEM INSTALLER Narrative [facility] - 03/13/2024 8:49 AM FIRE CONTROL SYSTEM INSTALLER Therapeutic Range 2.0-3.0 for most anticoagulated patients [...] HEMATOLOGY Final Res ult Performing Organization Address City/[facility]/ZIP Co de Phone Number [facility] [address] [place] [address], [place] * PHOSPHORUS (03/13/2024 8:22 AM FIRE CONTROL SYSTEM INSTALLER) PHOSPHORUS 3.1 2.5 - 4.5 mg/dL 03/13/2024 9:06 AM FIRE CONTROL SYSTEM INSTALLER [facility] Blood BLOOD SPECIMEN / Unknown Venipuncture / Unknown 03/13/2024 8:22 AM FIRE CONTROL SYSTEM INSTALLER 03/13/2024 8:33 AM FIRE CONTROL SYSTEM INSTALLER Cain Monet MD CHEMISTRY Maia l Result Performing Organization Address [facility] Co de Phone Number [facility] [address] [place] [address], [place] * CALCIUM IONIZED HOSPITAL DRAW ONLY (03/13/2024 8:22 AM FIRE CONTROL SYSTEM INSTALLER) CALCIUM,IONIZE D 1.23 1.15 - 1.27 mmol/L 03/13/2024 8:37 AM FIRE CONTROL SYSTEM INSTALLER [facility] Blood BLOOD SPECIMEN / Unknown Venipuncture / Unknown 03/13/2024 8:22 AM FIRE CONTROL SYSTEM INSTALLER 03/13/2024 8:33 AM FIRE CONTROL SYSTEM INSTALLER Cain Monet MD CHEMISTRY Maia l Result Performing Organization Address [facility] Co de Phone Number [facility] [address] [place] [address], [place] * XR CHEST 1 VIEW PORTABLE (03/13/2024 8:13 AM FIRE CONTROL SYSTEM INSTALLER) Anatomical Region Laterality Modality HEART, THORAX, CHEST Digital Rad iography 03/13/2024 9:00 AM FIRE CONTROL SYSTEM INSTALLER Impressions 03/13/2024 9:00 AM FIRE CONTROL SYSTEM INSTALLER 1. Resolved left pneumothorax. 2. Small bilateral pleural effusions. Dictated by Kristen Pelayo MD @ Mar 13 2024 9:00AM (Electronically Signed) [email or web address] Core Narrative 03/13/2024 9:00 AM FIRE CONTROL SYSTEM INSTALLER For Patients: As a result of the [...] @ Mar 13 2024 9:00AM (Electronically Signed) [email or web address] Core us Cain Monet MD GENERAL IMAGING Maia jaimes Result * SCAN-CARDIAC STRIP (03/13/2024 1:29 AM FIRE CONTROL SYSTEM INSTALLER) us Scanner OTHER Final Result from Last 3 Months Insurance * Guarantor: Mac Yarbrough Account Type Relation to Patient Date of Phone Billing Address Personal/Family Self 1940 [address] [place] [id number] MEDICARE PART A HB ONLY BLUE CROSS MEDICARE ADVANTAGE MR Advance Directives Documents on File Type Date Recorded Patient Dinkey Press Operator Expl anation Healthcare Directive 02/10/2024 INVALID , MISS[place] PAGE, 02/10/2024 Power of Electronic Gluer 10/19/1996 DURABLE PO WER OF WINDOWS SERVER SPECIALIST FOR HEALTH CARE, [facility], 10/19/1996 Power of Electronic Gluer 10/19/1996 STATUTORY SHORT FORM POWER OF WINDOWS SERVER SPECIALIST, [facility], 10/19/1996 Healthcare Directive 03/04/1993 HEALTH CARE DECLARATION, [facility], 03/04/1993 * Full Code (Latest Code Status [...] 7:00 PM 04/07/2012 3:58 PM Care Teams Teachers Aide Relationship Specialty Start Date End Date Bari Toscano MD [address] [place] [address] PCP - General Family Practice 08/14/13 Pardeep Baird MBC Surgery - Orthopedics 09/09/12 Rocael Gamez [address] [place] [address] Ophthalmology Surgery 09/09/12 [place] [address] [place] [address] Rheumatology 03/07/24
--- OUTSIDE RECORDS SUMMARY | 2024-06-11 17:47 | XMS_ITS | Continuity of Care Document ---
[facility] Organization [facility] Address [address] [place] [address] Care Team Providers Care Marketing Project Specialist Name Role Phone LINDSAY SANFORD Referring Provider Assessment No assessment recorded. Plan of Treatment Reminders Order Date Submit Date Provider Last Modified By Organization Details Last Modified Time Details Appointments PSA 10 2024 11:00A M [facility] Not available Not available Not available ESTABLISH ED 10 2024 11:20A M Louis Cook MD Not available Not available Not available Lab PSA, serum or plasma 2024 025 [facility], [address], [place], [address], 05/30/2024 13:17:58 PSA, total, serum or plasma 2024 025 [facility], [address], [place], [address], 05/30/2024 14:27:38 Referral None recorded. Procedures None recorded. Surgeries None recorded. Imaging None recorded. Medication Orders None recorded. Patient TargetsNo targets recorded. Patient InstructionsNo instructions recorded. Reason for Referral None Reported. Results Created Date Observation Date Name Description Value Unit Range Abnormal Flag Note LastModifiedBy Organization Detail LastModifiedTime 05/31/19 25 05/30/2024 PSA, serum or plasm a PSA 10.3 0-4.0 NG/mL Not Available [facility] [address], [place], [address], 05/30/2024 12:41:42 Result Notes None recorded. Procedures Surgical History Date Name Laterality Status Provider Name and Address Organization Details Recorded Time 5 Blood Draw/MONITORING MANAGER/PSA RESULTS completed Louis Cook MD [address] [place] [address],[place] [address], [place], [address], [facility] 05/30/2024 12:41:37 4 Blood Draw/MONITORING MANAGER/PSA RESULTS completed Carlos Enrique falcon [facility] 10/11/2023 10:18:27 3 Heart Surgery completed Louis Cook MD [address] [place] [address],[address], [place], [address], [facility] 09/28/2022 16:37:35 procedure on spine completed Louis Cook MD [address] [place] [address],[facility] [address], [place], [address], [facility] 09/28/2022 16:37:23 Imaging Results None recorded. Procedure Notes None recorded. Medical Equipment None Reported. Allergies No known drug allergies Medications Name Sig Start Date Stop Date Status Note LastModified by Organization Details LastModified Time terbinafine HCl 1 % topical cream APPLY TOPICALLY TO AFFECTED AREA(S) TWO TIMES DAILY. active Not Available Not Available No t Available prednisone 10 mg tablet TAKE ONE TO ONE AND ONE-HALF TABLETS (10-15 MG) BY MOUTH ONCE DAILY WITH A MEAL. 05/30 completed Not Available Not Available Not Available azithromyci n 250 mg tablet TWO TABLETS BY MOUTH THE FIRST DAY, ONE DAILY DAYS 2-5 09/28 completed Not Available Not Available Not Available glipizide ER 10 mg tablet, extended release 24 hr TAKE 1 TABLET (10 MG) BY MOUTH ONCE DAILY BEFORE A MEAL. active Not Available Not Available No t Available prednisone 20 mg tablet TAKE 1 TABLET (20 MG) BY MOUTH ONCE DAILY WITH A MEAL. 04/26 completed Not Available Not Available Not Available isosorbide mononitrate ER 30 mg tablet,exte nded release 24 hr TAKE 1 TABLET (30 MG) BY MOUTH ONCE DAILY. 05/30 completed Not Available Not Available Not Available prednisone 5 mg tablet TAKE 1 TABLET (5 MG) BY MOUTH ONCE DAILY WITH A MEAL. 05/30 completed Not Available Not Available Not Available glipizide ER 5 mg tablet, extended release 24 hr TAKE 3 TABLETS (15 MG) BY MOUTH ONCE DAILY BEFORE A MEAL. 05/30 completed Not Available Not Available Not Available ciprofloxac in 250 mg tablet TAKE 2 TABLETS (500 MG) BY MOUTH TWO TIMES DAILY FOR 10 DAYS. 09/28 completed Not Available Not Available Not Available triamcinolo ne acetonide 0.1 % topical cream APPLY TOPICALLY TO AFFECTED AREA(S) THREE TIMES DAILY. active Not Available Not Available No t Available terbinafine HCl 250 mg tablet TAKE 1 TABLET (250 MG) BY MOUTH ONCE DAILY. active Not Available Not Available No t Available potassium chloride ER 20 mEq tablet,exte nded release(par t/cryst) TAKE 1 TABLET (20 MEQ) BY MOUTH ONCE DAILY. active Not Available Not Available No t Available tamsulosin 0.4 mg capsule TAKE 1 CAPSULE (0.4 MG) BY MOUTH ONCE DAILY AFTER A MEAL. active Not Available Not Available No t Available glipizide ER 2.5 mg tablet, extended release 24 hr TAKE 2 TABLETS (5 MG) BY MOUTH ONCE DAILY BEFORE A MEAL. 05/30 completed Not Available Not Available Not Available cephalexin 500 mg capsule TAKE 1 CAPSULE (500 MG) BY MOUTH FOUR TIMES DAILY FOR 10 DAYS. 05/30 completed Not Available Not Available Not Available triamcinolo ne acetonide 0.1 % topical ointment APPLY TOPICALLY TO AFFECTED AREA(S) THREE TIMES DAILY. active Not Available Not Available No t Available nitroglycer in 0.[address] 1 TABLET (0.4 MG) UNDER THE TONGUE EVERY 5 MINUTES IF NEEDED FOR CHEST PAIN. UP TO 3 TABLETS IN 15 MINUTES. active Not Available Not Available No t Available gabapentin 300 mg capsule TAKE 1 CAPSULE (300 MG) BY MOUTH AT BEDTIME. active Not Available Not Available No t Available lisinopril 20 mg-hydrochl orothiazide 25 mg tablet TAKE 1 TABLET BY MOUTH ONCE DAILY. 05/30 completed Not Available Not Available Not Available furosemide 20 mg tablet TAKE 2 TABLETS (40 MG) BY MOUTH ONCE DAILY IN THE MORNING. active Not Available Not Available No t Available metoprolol succinate ER 25 mg tablet,exte nded release 24 hr TAKE 1 TABLET (25 MG) BY MOUTH ONCE DAILY. active Not Available Not Available No t Available lorazepam 1 mg tablet TAKE 1 TABLET (1MG) ONCE 30 TO 90 MINUTES BEFORE MRI PROCEDURE ; IF NEEDED DUE TO INCOMPLET E RESPONSE, MAY REPEAT 1/2 TABLET (0.5MG) AFTER 30 TO 60 MINUTES 05/30 completed Not Available Not Available Not Available metformin ER 500 mg tablet,exte nded [...] completed Not Available Not Available Not Available rosuvastati n 20 mg tablet TAKE 1 TABLET (20 MG) BY MOUTH AT BEDTIME. active Not Available Not Available No t Available trospium 20 mg tablet TAKE 1 TABLET BY MOUTH DAILY. active Not Available Not Available No t Available Eliquis 5 mg tablet TAKE 1 TABLET (5 MG) BY MOUTH TWO TIMES DAILY. active Not Available Not Available No t Available Jardiance 10 mg tablet TAKE 1/2 TABLET (5 MG) BY MOUTH ONCE DAILY. active Not Available Not Available No t Available True Metrix Glucose Test Strip TEST 2 TIMES PER WEEK. active Not Available Not Available No t Available Entresto 24 mg-26 mg tablet TAKE 1 TABLET BY MOUTH TWO TIMES DAILY. active Not Available Not Available No t Available aspirin 81 mg capsule Take 1 capsule every day by oral route. active Not Available Not Available No t Available Paxlovid 300 mg (150 mg x 2)-100 mg tablets in a dose pack TK 2 NIRMATREL VIR TS AND 1 RITONAVIR T TOGETHER PO BID FOR 5 DAYS 05/30 completed Not Available Not Available Not Available Vitals Date Recorded Body height Body mass index (BMI) Body weight Provider Name and Address Organization Details Last Updated DateTime 05/30/2024 175.26 cm 31 kg/m2 38138.4 g Louis Cook MD [address] [place] [address],[address], [place], [address] 05/30/2024 12:38:02 Social History Question Answer Notes LastModified by Organizat ion Details LastModified Time Tobacco Smoking Status Former Smoker Louis Cook MD [address] [facility],[address], [place], [address], [facility] 09/28/2022 16:37:00 What Is Your Level [...] Date Of Your Most Recent Tobacco Screening? 05/30/2024 Information not available 05/30/2024 Have You Ever Been Counseled For Unhealthy [...] Vaccine Type Date Status Note Provider Nam hung and Address Organization Details Recorded Time Influenza, high-dose, quadrivalent, PF 3 completed Louis Cook MD [address], [place], [address], [facility] 04/26/2023 10:59:30 RSV, recombinant, protein subunit RSVpreF, adjuvant reconstituted, 0.5 mL, PF 3 completed Louis Cook MD [address], [place], [address], [facility] 04/26/2023 10:59:31 COVID-19, mRNA, LNP-S, PF, 50 mcg/0.5 mL 3 completed Louis Cook MD [address], [place], [address], [facility] 04/26/2023 10:59:31 COVID-19, mRNA, LNP-S, PF, 50 mcg/0.5 mL 4 completed Not Available [facility] 05/30/2024 12:10:22 COVID-19, mRNA, LNP-S, PF, 50 mcg/0.5 mL 4 completed Not Available [facility] 05/30/2024 12:10:22 Influenza, adjuvanted, trivalent, PF 4 completed Not Available [facility] 05/30/2024 12:10:22 IPV 2 completed Susana Allar null, [facility] 01/25/2023 09:28:19 Influenza, adjuvanted, trivalent, PF 7 completed Susana Allar null, [facility] 01/25/2023 09:28:19 Influenza, adjuvanted, trivalent, PF 9 completed Susana Allar null, [facility] 01/25/2023 09:28:19 Influenza, adjuvanted, trivalent, PF 8 completed Susana Allar null, [facility] 01/25/2023 09:28:19 zoster recombinant 0 completed Susana Allar null, [facility] 01/25/2023 09:28:19 zoster recombinant 9 completed Susana Allar null, [facility] 01/25/2023 09:28:19 Influenza, adjuvanted, quadrivalent, PF 0 completed Susana Allar null, [facility] 01/25/2023 09:28:19 Influenza, adjuvanted, quadrivalent, PF 2 completed Susana Allar null, [facility] 01/25/2023 09:28:19 Influenza, adjuvanted, quadrivalent, PF 1 completed Susana Allar null, [facility] 01/25/2023 09:28:19 COVID-19, mRNA, LNP-S, PF, 100 mcg/0.5mL dose or 50 mcg/0.25mL dose 1 completed Susana Allar null, [facility] 01/25/2023 09:28:19 COVID-19, mRNA, LNP-S, PF, 100 mcg/0.5mL dose or 50 mcg/0.25mL dose 1 completed Susana Allar null, [facility] 01/25/2023 09:28:19 COVID-19, mRNA, LNP-S, PF, 100 mcg/0.5mL dose or 50 mcg/0.25mL dose 1 completed Susana Allar null, [facility] 01/25/2023 09:28:19 Pneumococcal conjugate PCV20, polysaccharide [id number] conjugate, adjuvant, PF 3 completed Susana Allar null, [facility] 01/25/2023 09:28:19 COVID-19, mRNA, LNP-S, PF, 30 mcg/0.3 mL dose, octavia-sucrose 2 completed Susana Allar null, [facility] 01/25/2023 09:28:19 COVID-19, mRNA, LNP-S, bivalent, PF, 50 mcg/0.5 mL or 25mcg/0.25 mL dose 3 completed Susana Allar null, [facility] 01/25/2023 09:28:19 COVID-19, mRNA, LNP-S, bivalent, PF, 50 mcg/0.5 mL or 25mcg/0.25 mL dose 2 completed Susana Allar null, [facility] 01/25/2023 09:28:19 pneumococcal polysaccharide PPV23 6 completed Susana Allar null, [facility] 01/25/2023 09:28:19 pneumococcal polysaccharide PPV23 6 completed Susana Allar null, [facility] 01/25/2023 09:28:19 Tdap 1 completed Susana Allar null, [facility] 01/25/2023 09:28:19 Tdap 1 completed Susana Allar null, [facility] 01/25/2023 09:28:19 Pneumococcal conjugate PCV 13 5 completed Susana Allar null, [facility] 01/25/2023 09:28:19 yellow fever live 2 completed Susana Allar null, [facility] 01/25/2023 09:28:19 yellow fever live 1 completed Susana Allar null, [facility] 01/25/2023 09:28:19 zoster live 7 completed Susana Allar null, [facility] 01/25/2023 09:28:19 Influenza, high-dose, trivalent, PF 4 completed Susana Allar null, [facility] 01/25/2023 09:28:19 Influenza, high-dose, trivalent, PF 6 completed Susana Allar null, [facility] 01/25/2023 09:28:19 Influenza, high-dose, trivalent, PF 5 completed Susana Allar null, [facility] 01/25/2023 09:28:19 Influenza, split virus, trivalent, preservative 2 completed Susana Allar null, [facility] 01/25/2023 09:28:19 Influenza, split virus, trivalent, preservative 1 completed Susana Allar null, [facility] 01/25/2023 09:28:19 Influenza, split virus, trivalent, preservative 6 completed Susana Allar null, [facility] 01/25/2023 09:28:19 Influenza, split virus, trivalent, preservative 4 completed Susana Allar null, [facility] 01/25/2023 09:28:19 Influenza, split virus, trivalent, preservative 3 completed Susana Allar null, [facility] 01/25/2023 09:28:19 Influenza, split virus, trivalent, preservative 0 completed Susana Allar null, [facility] 01/25/2023 09:28:19 Influenza, split virus, trivalent, preservative 7 completed Susana Allar null, [facility] 01/25/2023 09:28:19 Influenza, split virus, trivalent, preservative 5 completed Susana Allar null, [facility] 01/25/2023 09:28:19 Td (adult), 5 Lf tetanus toxoid, preservative free, adsorbed 5 completed Susana Allar null, [facility] 01/25/2023 09:28:19 typhoid, ViCPs 2 completed Susana Allar null, [facility] 01/25/2023 09:28:19 typhoid, ViCPs 1 completed Susana Allar null, [facility] 01/25/2023 09:28:19 Hep A-Hep B 2 completed Susana Allar null, [facility] 01/25/2023 09:28:19 Hep A-Hep B 2 completed Susana Allar null, [facility] 01/25/2023 09:28:19 Hep A-Hep B 2 completed Susana Allar null, [facility] 01/25/2023 09:28:19 Past Encounters Encounter ID Performer Location Encounter Start Date Encounter Closed Date Diagnosis/Indication Diagnosis SNOMED-CT Code Diagnosis ICD10 Code Diagnosis Note [id number] MD LUIS ANGEL [facility] [address] [address] 05/30/2024 12:07:44 06/02/2024 12:10:13 Malignant tumor of prostate [id number] C61 1. Prostate cancer- cT1c - [place] 3+3 = 6 - on expectant management - PSA (103) - decreased has fluctuated over the years- Follow-up in 6 months with PSA(if PSA increases significan t - check Prostate MRI and recommend TRUS bx Lower urin robbin tract symptoms due to benign prostatic hypertrophy [id number] 9101 N40.1 H/O BPH- voiding okay- continue Flomax 0.4 mg daily- check Bladder scan at Follow-up Increased frequency of urination 761440302 R35.0 2. Urinary frequency- his symptoms correlate with his use of Lasix Health Concerns Section Related Observation LastModified by Organization Detai ls LastModified Time None Recorded Concern Status LastModified by Organization Details LastModified Time None Recorded Payers Encounter Date Sequence Insurance Name Policy Number Policy Sam Covered Member ID Sam Member ID Guarantor Name 05/30/2024 1 [place] (MEDICARE [place]PLACEMENT PPO) [id number] Enrike Coleman [id number] Enrike Coleman Notes Date Note Type Note Provider Name and Address Organization Details Recorded Time 05/30/2024 text/html 84 yo male with history of A.fib (on Eliquis), HTN, DM, memory loss, BPH, and Prostate cancer - T1c - [place] 3+3 = 6 - involving 1/10 cores (< 5%) on Left - TRUS bx (12/15/12) by Dr. Herrera - on expectant management. Prostate MRI (2014) revealed a PI-RADS 2 lesion - underwent MRI bx (10/31/14) of lesion at [facility] - benign. No family H/O prostate cancer. He is on Flomax 0.4 mg daily. 04/26/23 - He presents for follow-up on Prostate cancer. He voids every 2-4 hours during the day and 1-2x/night. 10/11/23- He presents for follow-up on Prostate cancer. He voids every 2-4 hours during the day and 1-2x/night. 05/30/24 - He presents for follow-up on Prostate cancer. 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 He reports more frequent / urgent urination since his surgery (on Lasix 40 mg in AM). He voids every 30-2 hours during the day and 1-2x/night.- PSA - 10.3 PSA - 6.85 (09/09/12) - 10.5(10/11/23)- 7.13 (09/26/12) - 10.3 (05/30/24)- 6.52 (10/07/12)- 8.67 (09/12/14)- 7.44 (04/09/15)- 7.21 (10/16/15)- 7.64 (10/01/16)- 6.74 (03/10/17)- 6.91 (02/11/18)- 10.96 (11/14/18)- 7.53 (02/16/19)- 6.51 (03/07/20)- 9.21 (11/13/20)- 8.30 (06/09/21)- 11.80 (09/15/22)- 9.08 (04/16/23) Louis Cook MD [address], [place], [address], [facility] 05/30/2024 14:19:00
--- OUTSIDE RECORDS SUMMARY | 2024-06-11 17:47 | XMS_ITS | Data Portability ---
Author Organization [facility], [facility] Address [address] [facility] [address] [place] [address] Care Team Providers Care Card Tape Converter Operator Name Role Phone LINDSAY SANFORD Referring Provider Assessment No assessment recorded. Plan of Treatment Reminders Order Date Submit Date Provider Last Modified By Organization Details Last Modified Time Details Appointments PSA 10 2024 11:00A M [facility] Not available Not available Not available ESTABL ISHED 2024 11:20A M Louis Cook MD Not available Not available Not available Lab PSA, serum or plasma 2024 025 [facility], [address], [place], [address], 05/30/2024 13:17:58 PSA, total, serum or plasma 2024 025 [email or web address] [facility], [address] , [place], [address], 05/30/2024 14:27:38 PSA, serum or plasma 2023 024 [email or web address] ro [facility], [address], [place], [address], 10/11/2023 10:19:21 PSA, total, serum or plasma 2023 024 [email or web address] [facility], [address] , [place], [address], 11/16/2023 14:09:54 PSA, total, serum or plasma 2023 024 [email or web address] [facility], [address], [place], [address], 04/26/2023 16:13:19 PSA, total, serum or plasma 2022 023 [email or web address] [facility], [address], [place], [address], 10/05/2022 08:59:41 Referral None record ed. Procedures [...] Not Available [facility] [address], [place], [address], 10/05/2023 17:03:38 05/31/19 25 05/30/2024 PSA, serum or plasm a PSA 10.3 0-4.0 NG/mL Not Available [facility] [address], [place], [address], 05/30/2024 12:41:42 Result Notes None recorded. Procedures Surgical History Date Name Laterality Status Provider Name and Address Organization Details Recorded Time 5 Blood Draw/SPRING UP SUPERVISOR/PSA RESULTS completed Louis Cook MD [address] [place] [address],[address], [address], [facility] 05/30/2024 12:41:37 4 Blood Draw/SPRING UP SUPERVISOR/PSA RESULTS completed Carlos Enrique falcon [facility] 10/11/2023 10:18:27 3 Heart Surgery completed Louis Cook MD [address] [place] [address],[address], [address], [facility] 09/28/2022 16:37:35 procedure on spine completed Louis Cook MD [address] [facility],[address], [place], [address], [facility] 09/28/2022 16:37:23 Imaging Results None recorded. [...] Updated DateTime 09/28/2022 175.26 cm 31 kg/m2 22245.4 g Louis Cook MD [address] [place] [address], [address], [facility] 09/28/2022 16:34:03 Date Recorded Body height Body mass index (BMI) Body weight Provider Name and Address Organization Details Last Updated DateTime 04/26/2023 175.26 cm 31 kg/m2 94387.4 g Louis Cook MD [address] [place] [address], [address], [facility] 04/26/2023 10:59:25 Date Recorded Body height Body mass index (BMI) Body weight Provider Name and Address Organization Details Last Updated DateTime 10/11/2023 175.26 cm 31 kg/m2 35794.4 g Louis Cook MD [address] [facility],[address], [address] 10/11/2023 09:57:43 Date Recorded Body height Body mass index (BMI) Body weight Provider Name and Address Organization Details Last Updated DateTime 05/30/2024 175.26 cm 31 kg/m2 31429.4 g Louis Cook MD [address] [facility] [address], [place], [address] 05/30/2024 12:38:02 Social History Question Answer Notes LastModified by Organizat ion Details LastModified Time Tobacco Smoking Status Former Smoker Louis Cook MD [address] [place] [address],[address], [address] 09/28/2022 16:37:00 What Is [...] quadrivalent, PF 3 completed Louis Cook MD [address] [place] [address],[address], [address], [facility] 04/26/2023 10:59:30 RSV, recombinant, protein subunit RSVpreF, adjuvant reconstituted, 0.5 mL, PF 3 completed Louis Cook MD [address] [place] [address],[address], [address], [facility] 04/26/2023 10:59:31 COVID-19, mRNA, LNP-S, PF, 50 mcg/0.5 mL 3 completed Louis Cook MD [address] [place] [address],[facility] [address], [place], [address], [facility] 04/26/2023 10:59:31 COVID-19, mRNA, LNP-S, PF, 50 mcg/0.5 mL 4 completed Not Available [facility] 05/30/2024 12:10:22 COVID-19, mRNA, LNP-S, PF, 50 mcg/0.5 mL 4 completed Not Available [facility] 05/30/2024 12:10:22 Influenza, adjuvanted, trivalent, PF 4 completed Not Available [facility] 05/30/2024 12:10:22 IPV 2 completed Susana Allar null, [facility] 01/25/2023 09:28:19 Influenza, adjuvanted, trivalent, PF 7 completed Susana Allar null, [facility] 01/25/2023 09:28:19 Influenza, adjuvanted, trivalent, PF 9 completed Susana Allar null, [facility] 01/25/2023 09:28:19 Influenza, adjuvanted, trivalent, PF 8 completed Susana Allar null, [facility] 01/25/2023 09:28:19 zoster recombinant 0 completed Susana Allar null, [facility] 01/25/2023 09:28:19 zoster recombinant 9 completed Susana Allar null, [facility] 01/25/2023 09:28:19 Influenza, adjuvanted, quadrivalent, PF 0 completed Susana Allar null, [facility] 01/25/2023 09:28:19 Influenza, adjuvanted, quadrivalent, PF 2 completed Susana Allar null, [facility] 01/25/2023 09:28:19 Influenza, adjuvanted, quadrivalent, PF 1 completed Susana Allar null, [facility] 01/25/2023 09:28:19 COVID-19, mRNA, LNP-S, PF, 100 mcg/0.5mL dose or 50 mcg/0.25mL dose 1 completed Susana Allar null, [facility] 01/25/2023 09:28:19 COVID-19, mRNA, LNP-S, PF, 100 mcg/0.5mL dose or 50 mcg/0.25mL dose 1 completed Susana Allar null, [facility] 01/25/2023 09:28:19 COVID-19, mRNA, LNP-S, PF, 100 mcg/0.5mL dose or 50 mcg/0.25mL dose 1 completed Susana Allar null, [facility] 01/25/2023 09:28:19 Pneumococcal conjugate PCV20, polysaccharide [id number] conjugate, adjuvant, PF 3 completed Susana Allar null, [facility] 01/25/2023 09:28:19 COVID-19, mRNA, LNP-S, PF, 30 mcg/0.3 mL dose, octavia-sucrose 2 completed Susana Allar null, [facility] 01/25/2023 09:28:19 COVID-19, mRNA, LNP-S, bivalent, PF, 50 mcg/0.5 mL or 25mcg/0.25 mL dose 3 completed Susana Allar null, [facility] 01/25/2023 09:28:19 COVID-19, mRNA, LNP-S, bivalent, PF, 50 mcg/0.5 mL or 25mcg/0.25 mL dose 2 completed Susana Allar null, [facility] 01/25/2023 09:28:19 pneumococcal polysaccharide PPV23 6 completed Susana Allar null, [facility] 01/25/2023 09:28:19 pneumococcal polysaccharide PPV23 6 completed Susana Allar null, [facility] 01/25/2023 09:28:19 Tdap 1 completed Susana Allar null, [facility] 01/25/2023 09:28:19 Tdap 1 completed Susana Allar null, [facility] 01/25/2023 09:28:19 Pneumococcal conjugate PCV 13 5 completed Susana Allar null, [facility] 01/25/2023 09:28:19 yellow fever live 2 completed Susana Allar null, [facility] 01/25/2023 09:28:19 yellow fever live 1 completed Susana Allar null, [facility] 01/25/2023 09:28:19 zoster live 7 completed Susana Allar null, [facility] 01/25/2023 09:28:19 Influenza, high-dose, trivalent, PF 4 completed Susana Allar null, [facility] 01/25/2023 09:28:19 Influenza, high-dose, trivalent, PF 6 completed Susana Allar null, [facility] 01/25/2023 09:28:19 Influenza, high-dose, trivalent, PF 5 completed Susana Allar null, [facility] 01/25/2023 09:28:19 Influenza, split virus, trivalent, preservative 2 completed Susana Allar null, [facility] 01/25/2023 09:28:19 Influenza, split virus, trivalent, preservative 1 completed Susana Allar null, [facility] 01/25/2023 09:28:19 Influenza, split virus, trivalent, preservative 6 completed Susana Allar null, [facility] 01/25/2023 09:28:19 Influenza, split virus, trivalent, preservative 4 completed Susana Allar null, [facility] 01/25/2023 09:28:19 Influenza, split virus, trivalent, preservative 3 completed Susana Allar null, [facility] 01/25/2023 09:28:19 Influenza, split virus, trivalent, preservative 0 completed Susana Allar null, [facility] 01/25/2023 09:28:19 Influenza, split virus, trivalent, preservative 7 completed Susana Allar null, [facility] 01/25/2023 09:28:19 Influenza, split virus, trivalent, preservative 5 completed Susana Allar null, [facility] 01/25/2023 09:28:19 Td (adult), 5 Lf tetanus toxoid, preservative free, adsorbed 5 completed Susana Allar null, [facility] 01/25/2023 09:28:19 typhoid, ViCPs 2 completed Susana Allar null, [facility] 01/25/2023 09:28:19 typhoid, ViCPs 1 completed Susana Allar null, [facility] 01/25/2023 09:28:19 Hep A-Hep B 2 completed Susana Allar null, [facility] 01/25/2023 09:28:19 Hep A-Hep B 2 completed Susana Allar null, [facility] 01/25/2023 09:28:19 Hep A-Hep B 2 completed Susana Allar null, [facility] 01/25/2023 09:28:19 Past Encounters Encounter ID Performer Location Encounter Start Date Encounter Closed Date Diagnosis/Indication Diagnosis SNOMED-CT Code Diagnosis ICD10 Code Diagnosis Note [id number] Louis Cook MD [facility] [employer] [place] [address] 09/28/2022 16:22:42 10/02/2022 13:32:27 Malignant tumor of prostate [id number] C61 1. Prostate cancer- cT1c - Luisa 3+3 = 6 - on expectant management - PSA increased (11.80) - has fluctuated over the years- recheck PSA in November ([facility])- if PSA increases - check Prostate MRI and recommend TRUS bx Lower urin robbin tract symptoms due to benign prostatic hypertrophy [id number] 9101 N40.1 2. BPH- voiding okay- continue Flomax 0.4 mg daily [id number] Louis Cook MD [facility] [employer] [address] [place] [address] 04/26/2023 10:54:45 04/26/2023 12:03:27 Malignant tumor of prostate [id number] C61 1. Prostate cancer- cT1c - Luisa 3+3 = 6 - on expectant management - PSA (9.08) - decreased has fluctuated over the years- recheck PSA in September ([facility])(if PSA increases significan t - check Prostate MRI and recommend TRUS bx Lower urin robbin tract symptoms due to benign prostatic hypertrophy [id number] 9101 N40.1 2. BPH- voiding okay- continue Flomax 0.4 mg daily [id number] Louis Cook MD [facility] [employer] [address] [place] [address] 10/11/2023 09:43:36 10/12/2023 08:25:39 Malignant tumor of prostate [id number] C61 1. Prostate cancer- cT1c - Lamont 3+3 = 6 - on expectant management - PSA (10.5) - decreased has fluctuated over the years- Follow-up in 6 months with PSA(if PSA increases significan t - check Prostate MRI and recommend TRUS bx Lower urin robbin tract symptoms due to benign prostatic hypertrophy [id number] 9101 N40.1 2. BPH- voiding okay- continue Flomax 0.4 mg daily [id number] [facility] [employer] [place] [address] 05/30/2024 12:07:44 06/02/2024 12:10:13 Malignant tumor of prostate [id number] C61 1. Prostate cancer- cT1c - Lamont 3+3 = 6 - on expectant management - PSA (103) - decreased has fluctuated over the years- Follow-up in 6 months with PSA(if PSA increases significan t - check Prostate MRI and recommend TRUS bx Lower urin robbin tract symptoms due to benign prostatic hypertrophy [id number] 9101 N40.1 H/O BPH- voiding okay- continue Flomax 0.4 mg daily- check Bladder scan at Follow-up Increased frequency of urination [id number] R35.0 2. Urinary frequency- his symptoms correlate [...] Name 09/28/2022 1 [place] [id number] Enrike Coleman [id number] Enrike Coleman 04/26/2023 1 [place] [id number] Enrike Coleman [id number] Enrike Coleman 10/11/2023 1 [place] [id number] Enrike Coleman [id number] Enrike David Santanaon 05/30/2024 1 [place] [id number] Enrike Coleman [id number] Enrike Coleman Notes Date Note Type Note Provider Name and Address Organization Details Recorded Time 09/28/2022 text/html 82 yo male with history of A.fib (on Eliqius), HTN, DM, memory loss, BPH, and Prostate cancer - T1c - Lamont 3+3 = 6 - involving 1/10 cores (< 5%) on Left - TRUS bx (12/15/12) by Dr. Herrera - on expectant management. Prostate MRI (2014) revealed a PI-RADS 2 lesion - underwent MRI bx (10/31/14) of lesion at [facility] - benign. No family H/O [...] hesitancy, urgency, or dysuria. PSA - 6.85 (09/09/12)- 7.13 (09/26/12)- 6.52 (10/07/12)- 8.67 (09/12/14)- 7.44 (04/09/15)- 7.21 (10/16/15)- 7.64 (10/01/16)- 6.74 (03/10/17)- 6.91 (02/11/18)- 10.96 (11/14/18)- 7.53 (02/16/19)- 6.51 (03/07/20)- 9.21 (11/13/20)- 8.30 (06/09/21)- 11.80 (09/15/22) Louis Cook MD [address] [place] [address],[address], [place], [address], [facility] [[email or web address] 09/28/2022 17:22:15 04/26/2023 text/html 83 yo [...] MRI bx (10/31/14) of lesion at [facility] - benign. No family H/O [...] 1-2x/night.- PSA - 9.08 (04/16/23) - decreased PSA - 6.85 (09/09/12)- 7.13 (09/26/12)- 6.52 (10/07/12)- 8.67 (09/12/14)- 7.44 (04/09/15)- 7.21 (10/16/15)- 7.64 (10/01/16)- 6.74 (03/10/17)- 6.91 (02/11/18)- 10.96 (11/14/18)- 7.53 (02/16/19)- 6.51 (03/07/20)- 9.21 (11/13/20)- 8.30 (06/09/21)- 11.80 (09/15/22)- 9.08 (04/16/23) Louis Cook MD [address] [facility],[address], [place], [address], [facility] [[email or web address] - [facility] 04/26/2023 11:10:14 10/11/2023 text/html 83 yo [...] MRI bx (10/31/14) of lesion at [facility] - benign. No family H/O [...] 11.80 (09/15/22)- 9.08 (04/16/23) Louis Cook MD [address] [place] [address],[address], [place], [address], [facility] [[email or web address] - [facility] 10/11/2023 10:30:45 05/30/2024 text/html 84 yo male with history of A.fib (on Eliquis), HTN, DM, memory loss, BPH, and Prostate cancer - T1c - Luisa 3+3 = 6 - involving 1/10 cores (< 5%) on Left - TRUS bx (12/15/12) by Dr. Herrera - on expectant management. Prostate MRI (2014) revealed a PI-RADS 2 lesion - underwent MRI bx (10/31/14) of lesion at [facility] - benign. No family H/O [...] 11.80 (09/15/22)- 9.08 (04/16/23) Louis Cook MD [address] [facility] [address], [place], [address], [facility] 05/30/2024 14:19:00
--- OUTSIDE RECORDS SUMMARY | 2024-06-11 17:47 | XMS_ITS | Clinical Summary ---
Author Organization [facility] Address [address] , [address] [place] [address] Phone Care Team Providers Care Rig Builder Name Role Phone Nahun Olivo Unavailable Unavailable Conditions or Problems Problem Name Problem Code Onset Date Status Entry Date Provider Comment Standard Description Annotate Leg weakness, bilateral 054704121 (SNOMED CT) Active Marco Antonio Alicea MD Paresis of lower extremity Peripheral polyneuropathy 223927395 (SNOMED CT) Active Marco Antonio Alicea MD Peripheral nerve disease Nonspecific paroxysmal spell 6614046 (SNOMED CT) 03/26 Active 03/26 Marco Antonio Alicea MD Disturbance of consciousness Mild cognitive impairment 225867967 (SNOMED CT) 03/19 Active 03/19 Marco Antonio Alicea MD Mild neurocognitive disorder Memory loss 06036738 (SNOMED CT) 10/31 Active 10/31 Marco Antonio Alicea MD Amnesia Medications Medication Instructions Start Date Stop Date Generic Name ND Provider METFORMIN HCL ER 500 MG [id number] 04/28 metformin (glucophage xr) [id number] Marco Antonio Alicea MD SODIUM CHLORIDE 0.9 % SOLN 04/28 sodium chloride 99082961792 Marco Antonio Alicea MD GABAPENTIN 300 MG CAPS TAKE 1 CAPSULE (300 MG) BY MOUTH AT BEDTIME. 04/28 gabapentin [id number] Marco Antonio Alicea MD ELIQUIS 5 MG TABS TAKE 1 TABLET (5 MG) BY MOUTH TWO TIMES DAILY. 04/28 apixaban [id number] Marco Antonio Alicea MD LISINOPRIL-HYDRO CHLOROTHIAZIDE 20-25 MG TABS 04/28 lisinopril-hydr ochlorothiazide [id number] Marco Antonio Alicea MD TRUE METRIX BLOOD GLUCOSE TEST STRP TEST 2 TIMES PER WEEK. 04/28 blood sugar diagnostic [id number] Marco Antonio Alicea MD TROSPIUM CHLORIDE 20 MG TABS TAKE ONE TABLET BY MOUTH DAILY 04/28 trospium [id number] Marco Antonio Alicea MD GLIPIZIDE ER 2.5 MG [id number] 04/28 glipizide [id number] Marco Antonio Alicea MD PREDNISONE 10 MG TABS TAKE 1-2 TABLETS (10-20 MG) BY MOUTH ONCE DAILY WITH A MEAL. DIRECTED 04/28 prednisone [id number] Marco Antonio Alieca MD TAMSULOSIN HCL 0.4 MG CAPS TAKE 1 CAPSULE (0.4 MG) BY MOUTH ONCE DAILY AFTER A MEAL. 04/28 tamsulosin [id number] Marco Antonio Alicea MD ENTRESTO 24-26 MG TABS TAKE 1 TABLET BY MOUTH TWO TIMES DAILY. sacubitril-vals karin [id number] Marco Antonio Alicea MD VITAMIN B-12 1,000 MCG TAB 1000 TAKE 1 TABLET (1,000 MCG) BY MOUTH ONCE DAILY. VITAMIN B-12 1,000 MCG TAB 1000 Marco Antonio Alicea MD JARDIANCE 10 MG TABS TAKE 1 TABLET (10 MG) BY MOUTH ONCE DAILY. empagliflozin [id number] Marco Antonio Alicea MD ELIQUIS 5 MG TABS TAKE 1 TABLET (5 MG) BY MOUTH TWO TIMES DAILY. apixaban [id number] Marco Antonio Alicea MD TROSPIUM CHLORIDE 20 MG TABS TAKE ONE TABLET BY MOUTH DAILY trospium [id number] Marco Antonio Alicea MD FUROSEMIDE 20 MG TABS TAKE 1 TABLET (20 MG) BY MOUTH ONCE DAILY IN THE MORNING. furosemide [id number] Marco Antonio Alicea MD ROSUVASTATIN CALCIUM 20 MG TABS TAKE 1 TABLET (20 MG) BY MOUTH AT BEDTIME. rosuvastatin [id number] Marco Antonio Alicea MD METOPROLOL SUCCINATE ER 25 MG [id number] TAKE 1 TABLET (25 MG) BY MOUTH ONCE DAILY. metoprolol succinate [id number] Marco Antonio Alicea MD TAMSULOSIN HCL 0.4 MG CAPS TAKE 1 CAPSULE (0.4 MG) BY MOUTH ONCE DAILY AFTER A MEAL. tamsulosin [id number] Marco Antonio Alicea MD ISOSORBIDE MONONITRATE ER 30 MG [id number] TAKE 1 TABLET (30 MG) BY MOUTH ONCE DAILY. isosorbide mononitrate [id number] Marco Antonio Alicea MD METFORMIN HCL ER 500 MG [id number] TAKE 4 TABLETS (2,000 MG) BY MOUTH ONCE DAILY WITH EVENING MEAL. metformin (glucophage xr) [id number] Marco Antonio Alicea MD NITROGLYCERIN 0.[address] 1 TABLET (0.4 MG) UNDER THE TONGUE EVERY 5 MINUTES IF NEEDED FOR CHEST PAIN. UP TO 3 TABLETS IN 15 MINUTES. nitroglycerin [id number] Marco Antonio Alicea MD GABAPENTIN 300 MG CAPS TAKE 1 CAPSULE (300 MG) BY MOUTH AT BEDTIME. gabapentin [id number] Marco Antonio Alicea MD POTASSIUM CHLORIDE GEM ER 20 MEQ CR-TABS TAKE 1 TABLET (20 MEQ) BY MOUTH ONCE DAILY. potassium chloride [id number] Marco Antonio Alicea MD TERBINAFINE HCL 1 % CREA APPLY TOPICALLY TO AFFECTED AREA(S) TWO TIMES DAILY. terbinafine hcl [id number] Marco Antonio Alicea MD TERBINAFINE HCL 250 MG TABS TAKE 1 TABLET (250 MG) BY MOUTH ONCE DAILY. terbinafine hcl [id number] Marco Antonio Alicea MD GLIPIZIDE ER 10 MG [id number] TAKE 2 TABLETS (20 MG) BY MOUTH ONCE DAILY BEFORE A MEAL. glipizide [id number] Marco Antonio Alicea MD PREDNISONE 20 MG TABS TAKE 1 TABLET (20 MG) BY MOUTH ONCE DAILY WITH A MEAL. 09/20 prednisone [id number] Yue GIL-C TROSPIUM CHLORIDE 20 MG TABS TAKE ONE TABLET BY MOUTH DAILY 04/28 trospium [id number] Yue Schulte PA-C PREDNISONE 10 MG TABS TAKE 1-2 TABLETS (10-20 MG) BY MOUTH ONCE DAILY WITH A MEAL. DIRECTED 04/28 prednisone [id number] Yue GIL-C GABAPENTIN 300 MG CAPS TAKE 1 CAPSULE (300 MG) BY MOUTH AT BEDTIME. 04/28 gabapentin [id number] Yue GIL-C ID NOW COVID-19 KIT TEST DIRECTED TODAY 09/17 covid-19 molecular test assay [id number] Yue Schulte PA-C PREDNISONE 20 MG TABS TAKE 1 TABLET (20 MG) BY MOUTH ONCE DAILY WITH A MEAL. 09/20 prednisone [id number] Yue Schulte PA-C ELIQUIS 5 MG TABS TAKE 1 TABLET (5 MG) BY MOUTH TWO TIMES DAILY. 04/28 apixaban [id number] Yue Schulte PA-C TAMSULOSIN HCL 0.4 MG CAPS TAKE 1 CAPSULE (0.4 MG) BY MOUTH ONCE DAILY AFTER A MEAL. 04/28 tamsulosin [id number] Yue GIL-C ID NOW COVID-19 KIT TEST DIRECTED TODAY 09/17 covid-19 molecular test assay [id number] Marco Antonio Alicea MD TRUE METRIX BLOOD GLUCOSE TEST STRP TEST 2 TIMES PER WEEK. 04/28 blood sugar diagnostic [id number] Marco Antonio Alicea MD LISINOPRIL-HYDRO CHLOROTHIAZIDE 20-25 MG TABS 04/28 lisinopril-hydr ochlorothiazide [id number] Marco Antonio Alicea MD METFORMIN HCL ER 500 MG [id number] 04/28 metformin [id number] Marco Antonio Alicea MD GLIPIZIDE ER 2.5 MG [id number] 06/08 glipizide [id number] Marco Antonio Alicea MD SODIUM CHLORIDE 0.9 % SOLN 04/28 sodium chloride [id number] Marco Antonio Alicea MD Medications Administered No [...] ax PHQ22 No Adolescent depression screening assessment DEMENTIA2 Assessment of cognition performed and results reviewed. Total score [M MSE] [id number] Normal Total scor e [MoCA] MMSE SCORE 28 Total scor e [MMSE] Office Visit: Office Visit 6 m pt sched R/S from 03/23 due to surgery fax MEDS REVIEW Done Documenta tion of current medications (procedure) Internal Other: Authorizatio n AUTHBENEFIT Yes Authoriza tion: Assignment of Benefits and Payment Agreement [email or web address] Yes Authorizat ion: Authorization for [facility] to leave messages, voicemail, send text messages, send emails AUTHRELHCARE Yes Authoriz ation: Release/Retrieval of Information to/from Healthcare Facilities, Pharmacy Benefit Payers and Providers ROIAUTHOTHER Yes Authoriz ation: Release of Information - Authorize Others/Insurance - Payment and Healthcare Operations [email or web address] Yes Authoriza tion: Release of Information - Authorize [facility] - Payment and Healthcare Operations AUTHPRIVPRAC Yes Authoriz ation: Notice of privacy practices HIECONSENT Yes Consent To Release information to the [employer]) Plan of Care Type Date Detail Pending order Follow up ABBY Pending order Follow up ABBY Pending order Patient Instruct ions Pending order Follow up Pending order Follow up ABBY Pending order Patient Instruct ions Pending order Patient Instruct ions Pending order Follow up Pending order Patient Instruct ions Pending order Follow up ABBY in clinic or telemedicine Pending order Patient Instruct ions Pending order Follow up teleme dicine Pending order Neuropsychology Evaluation Procedures Code Procedure Name Date Entry Date [facility]-[id number] Documentation of current medicatio ns ORDERS Patient Instructions ORDERS Follow up CPT-87015 Nerve Conduction 11-12 studies CPT-32052 EMG with NCS (5+ muscles) - 2 limbs 12/22 ORDERS Patient Instructions LOINC 89884-3 MMSE ORDERS Follow up ABBY ORDERS Patient Instructions ORDERS Follow up [facility]-[id number] Documentation of current medicatio ns ORDERS Patient Instructions ORDERS Follow up ABBY in clinic or telemedicine 2 LOINC 94137-1 MMSE ORDERS Patient Instructions ORDERS Follow up telemedicine 10/31 [facility]-[id number] Documentation of current medicatio ns ORDERS Neuropsychology Evaluation 2 [facility]-[id number] Documentation of current medicatio ns LOINC 78952-1 MMSE Vital Signs No information available. Immunizations No information available. Advance Directives No information available.
--- OUTSIDE RECORDS SUMMARY | 2024-06-11 17:47 | XMS_ITS | Clinical Summary ---
Author Organization [facility] Address [address] [address] Care Team Providers Care Research Manufacturing Operator Name Role Phone Unavailable Primary Care [...] for each transition of care or referral. [facility] Allergies No known active allergies Medications metFORMIN [...] Visit 1940 DTaP/Tdap/Td (1 - Tdap) 1957 Pneumococcal 50+ Yrs (1 of 1 - PCV) 02/21/1988 Zoster/Shingles (1 of 2) 02/21/1988 RSV (1 - 1-dose 75+ series) 2013 COVID-19 Vaccine (2023-2 5 season) 2023 Influenza (#1) 2023 HepA [...] on patient's age to complete this topic Meningococcal B Aged Out No longer el igible based on patient's age to complete this topic Insurance MEDICARE BCBS MEDICARE SUPPLEMENT
--- OUTSIDE RECORDS SUMMARY | 2024-06-11 17:47 | XMS_ITS ---
Office Visit 6m pt sched R/S from 03/23 due to surgery fax Created on: April 28, 2024 Enrike Coleman : 1940 Sex: Male Author Organization [facility] Address [address] [place] [address] , [address] [place] [address] Phone Care Team Providers Care Oim Consultant Name Role Phone Marco Antonio Alicea MD Conditions or Problems No information available. Medications Medication Instructions Start Date Stop Date Generic Name [facility] Provider METFORMIN HCL ER 500 MG [id number] metformin (glucophage xr) [id number] Marco Antonio Alicea MD SODIUM CHLORIDE 0.9 % SOLN sodium chloride [id number] Marco Antonio Alicea MD GABAPENTIN 300 MG CAPS TAKE 1 CAPSULE (300 MG) BY MOUTH AT BEDTIME. gabapentin [id number] Marco Antonio Alicea MD ELIQUIS 5 MG TABS TAKE 1 TABLET (5 MG) BY MOUTH TWO TIMES DAILY. apixaban [id number] Marco Antonio Alicea MD LISINOPRIL-HYDRO CHLOROTHIAZIDE 20-25 MG TABS lisinopril-hydro chlorothiazide [id number] Marco Antonio Alicea MD TRUE METRIX BLOOD GLUCOSE TEST STRP TEST 2 TIMES PER WEEK. blood sugar diagnostic [id number] Marco Antonio Alicea MD TROSPIUM CHLORIDE 20 MG TABS TAKE ONE TABLET BY MOUTH DAILY trospium [id number] Marco Antonio Alicea MD GLIPIZIDE ER 2.5 MG [id number] glipizide [id number] Marco Antonio Alicea MD PREDNISONE 10 MG TABS TAKE 1-2 TABLETS (10-20 MG) BY MOUTH ONCE DAILY WITH A MEAL. DIRECTED prednisone [id number] Marco Antonio Alicea MD TAMSULOSIN HCL 0.4 MG CAPS TAKE 1 CAPSULE (0.4 MG) BY MOUTH ONCE DAILY AFTER A MEAL. tamsulosin [id number] Marco Antonio Alicea MD ENTRESTO 24-26 MG TABS TAKE 1 TABLET BY MOUTH TWO TIMES DAILY. sacubitril-valsa rtan [id number] Marco Antonio Alicea MD VITAMIN B-12 1,000 MCG TAB 1000 TAKE 1 TABLET (1,000 MCG) BY MOUTH ONCE DAILY. VITAMIN B-12 1,000 MCG TAB 1000 Marco Antonio Alicea MD JARDIANCE 10 MG TABS TAKE 1 TABLET (10 MG) BY MOUTH ONCE DAILY. empagliflozin [id number] Marco Antonio Alicea MD ELIQUIS 5 MG TABS TAKE 1 TABLET (5 MG) BY MOUTH TWO TIMES DAILY. apixaban [id number] Marco Antonio Alicea MD TROSPIUM CHLORIDE 20 MG TABS TAKE ONE TABLET BY MOUTH DAILY trospium [id number] Marco Antonio Alicea MD FUROSEMIDE 20 MG TABS TAKE 1 TABLET (20 MG) BY MOUTH ONCE DAILY IN THE MORNING. furosemide [id number] Marco Antonio Alicea MD ROSUVASTATIN CALCIUM 20 MG TABS TAKE 1 TABLET (20 MG) BY MOUTH AT BEDTIME. rosuvastatin [id number] Marco Antonio Alicea MD METOPROLOL SUCCINATE ER 25 MG [id number] TAKE 1 TABLET (25 MG) BY MOUTH ONCE DAILY. metoprolol succinate [id number] Marco Antonio Alicea MD TAMSULOSIN HCL 0.4 MG CAPS TAKE 1 CAPSULE (0.4 MG) BY MOUTH ONCE DAILY AFTER A MEAL. tamsulosin [id number] Marco Antonio Alicea MD ISOSORBIDE MONONITRATE ER 30 MG [id number] TAKE 1 TABLET (30 MG) BY MOUTH ONCE DAILY. isosorbide mononitrate [id number] Marco Antonio Alicea MD METFORMIN HCL ER 500 MG [id number] TAKE 4 TABLETS (2,000 MG) BY MOUTH ONCE DAILY WITH EVENING MEAL. metformin (glucophage xr) [id number] Marco Antonio Alicea MD NITROGLYCERIN 0.[address] 1 TABLET (0.4 MG) UNDER THE TONGUE EVERY 5 MINUTES IF NEEDED FOR CHEST PAIN. UP TO 3 TABLETS IN 15 MINUTES. nitroglycerin [id number] Marco Antonio Alicea MD GABAPENTIN 300 MG CAPS TAKE 1 CAPSULE (300 MG) BY MOUTH AT BEDTIME. gabapentin [id number] Marco Antonio Alicea MD POTASSIUM CHLORIDE GEM ER 20 MEQ CR-TABS TAKE 1 TABLET (20 MEQ) BY MOUTH ONCE DAILY. potassium chloride [id number] Marco Antonio Alicea MD TERBINAFINE HCL 1 % CREA APPLY TOPICALLY TO AFFECTED AREA(S) TWO TIMES DAILY. terbinafine hcl [id number] Marco Antonio Alicea MD TERBINAFINE HCL 250 MG TABS TAKE 1 TABLET (250 MG) BY MOUTH ONCE DAILY. terbinafine hcl [id number] Marco Antonio Alicea MD GLIPIZIDE ER 10 MG [id number] TAKE 2 TABLETS (20 MG) BY MOUTH ONCE DAILY BEFORE A MEAL. glipizide [id number] Marco Antonio Alicea MD Medications Administered No information available. Allergies, Adverse Reactions, Alerts No information available. Results Date Name Value Unit Range Flag Description Office Visit: Office Visit 6 m pt sched R/S from 03/23 due to surgery fax MEDS REVIEW Done Documenta tion of current medications (procedure) Plan of Care Type Date Detail Pending order Follow up ABBY Pending order Follow up ABBY Pending order Patient Instruct ions Procedures Code Procedure Name Date Entry Date [facility]-[id number] Documentation of current medicatio ns ORDERS Patient Instructions Vital Signs No information available. Immunizations No information available. Advance Directives No information available.
[2024-06-11 17:56] VITALS: BP 137/74; PULSE 69; RESP 18; TEMP 36.1; O2SAT 99
--- NOTE | 2024-06-11 18:21 | ED.GENADULT ---
HPI - General Adult General Chief complaint: Extremity Pain/Injury, Upper Stated complaint: Swollen left hand, triple bypass surgery recently Time Seen by Provider: 06/11/24 17:47 Source: patient and family Mode of arrival: ambulatory Limitations: no limitations History of Present Illness HPI narrative: 84-year-old male coming in today complaining of left hand swelling that has been present for 9 days. He states that he noticed that his hand was swollen is tight when he moves his finger and that his watch band was tight around his wrist. He denies pain in that hand. He denies trauma. He denies systemic symptoms such as fevers, chills, nausea or vomiting. Patient had coronary bypass in March of this year and he is concerned that to 2 things are related. He is not short of breath. He denies chest pain. He is on Eliquis. He denies swelling of the lower extremities. He has not been coughing. He denies redness of the hand. He denies swelling of any other joints or extremities. He did speak to his primary care provider who recommended follow-up in the clinic tomorrow. He does have an appointment scheduled for tomorrow afternoon. But he was told that if he had concerns he should be seen in the ER. Again patient is concerned this is related to his bypass surgery so he came in for evaluation today. Related Data Home Medications ?Medication ?Instructions ?Recorded ?Confirmed apixaban 5 mg tablet (Eliquis) 5 mg PO Q12H 02/15/22 06/11/24 blood sugar diagnostic (True 02/15/22 08/06/23 Metrix Glucose Test Strip) metformin 500 mg tablet,extended 2,000 mg PO DAILY 02/15/22 06/11/24 release 24 hr acetaminophen 500 mg capsule 500 mg PO Q6H PRN 07/27/23 06/11/24 cyanocobalamin (vitamin B-12) 1,000 mcg PO QDAY 07/27/23 06/11/24 1,000 mcg capsule gabapentin 300 mg capsule 300 mg PO QPM 07/27/23 06/11/24 tamsulosin 0.4 mg capsule 0.4 mg PO DAILY 07/27/23 06/11/24 trospium 20 mg tablet 20 mg PO DAILY 07/27/23 06/11/24 empagliflozin 10 mg tablet 5 mg PO DAILY 02/24/24 06/11/24 (Jardiance) glipizide 10 mg tablet, extended 10 mg PO DAILY 02/24/24 06/11/24 release 24 hr metoprolol succinate 25 mg 12.5 mg PO DAILY 02/24/24 06/11/24 tablet,extended release 24 hr nitroglycerin 0.4 mg sublingual 0.4 mg sublingual Q5M PRN 02/24/24 06/11/24 tablet rosuvastatin 20 mg tablet 20 mg PO QPM 02/24/24 06/11/24 aspirin 81 mg capsule 81 mg PO DAILY 06/11/24 06/11/24 furosemide 20 mg tablet 20 mg PO DAILY 06/11/24 06/11/24 potassium chloride 20 mEq 20 meq PO DAILY 06/11/24 06/11/24 tablet,extended release(part/cryst) terbinafine HCl 250 mg tablet 250 mg PO DAILY 06/11/24 06/11/24 triamcinolone acetonide 0.1 % topical 3XD 06/11/24 topical ointment Allergies Allergy/AdvReac Type Severity Reaction Status Date / Time No Known Drug Allergies Allergy Verified 06/11/24 18:01 Review of Systems Status of ROS: Reports: 10 or more systems reviewed and unremarkable except as noted in History and below [facility] Medical History BPH without urinary obstruction ?N40.0 - Benign prostatic hyperplasia without lower urinary tract symptoms (ICD-10) Mild cognitive impairment ?G31.84 - Mild cognitive impairment of uncertain or unknown etiology (ICD-10) Prostate cancer ?C61 - Malignant neoplasm of prostate (ICD-10) Mobitz (type) I (Wenckebach's) atrioventricular block ?I44.1 - Atrioventricular block, second degree (ICD-10) Atrial fibrillation ?I48.91 - Unspecified atrial fibrillation (ICD-10) Iron deficiency anemia ?D50.9 - Iron deficiency anemia, unspecified (ICD-10) Erectile dysfunction ?N52.9 - Male erectile dysfunction, unspecified (ICD-10) Displacement of lumbar intervertebral disc without myelopathy ?M51.26 - Other intervertebral disc displacement, lumbar region (ICD-10) Degeneration of lumbar or lumbosacral intervertebral disc ?M51.37 - Other intervertebral disc degeneration, lumbosacral region (ICD-10) Vitamin B12 deficiency ?E53.8 - Deficiency of other specified B group vitamins (ICD-10) Lumbar radiculopathy ?M54.16 - Radiculopathy, lumbar region (ICD-10) 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 - Complete traumatic metacarpophalangeal amputation of unspecified finger, initial encounter (ICD-10) Diabetes ?E11.9 - Type 2 diabetes mellitus without complications (ICD-10) COVID ?U07.1 - COVID-19 (ICD-10) Surgical History History of permanent cardiac pacemaker placement ?Z95.0 - Presence of cardiac pacemaker (ICD-10) History of cholecystectomy ?Z90.49 - Acquired absence of other specified parts of digestive tract (ICD-10) History of appendectomy ?Z90.49 - Acquired absence of other specified parts of digestive tract (ICD-10) History of arthroscopy of left shoulder (03/21/96) ?Z98.890 - Other specified postprocedural states (ICD-10) History of arthroscopy of right shoulder (11/26/11) ?Z98.890 - Other specified postprocedural states (ICD-10) S/P ORIF (open reduction internal fixation) fracture (04/05/14) ?Z98.890 - Other specified postprocedural states (ICD-10) ?Z87.81 - Personal history of (healed) traumatic fracture (ICD-10) Family History Mother Bowel cancer Social History Smoking Status: Former smoker Do you use any of these nicotine containing products: None Second hand tobacco smoke exposure: Yes How often do you have a drink containing alcohol: 4 or more times a week How many standard drinks containing alcohol do you have on a typical day: 1 or 2 AUDIT-C Alcohol total score: 4 Non-prescribed substance use: denies use Exam Narrative: Exam Narrative: Well-nourished well-developed patient in no acute distress. Alert and oriented. Answers questions appropriately. Mood and affect are appropriate. Thoughts are goal oriented and rational. No tangential or magical thinking noted. Patient speaks in full sentences without needing to catch his breath. He does have very mild cognitive impairment. HEENT: Normocephalic atraumatic. Extraocular muscles are intact. Conjunctivae are moist without any icterus noted. Moist mucous membranes. Cardiovascular: Regular rate and rhythm with occasional ectopic beat. Lungs: Clear to auscultation bilaterally. Extremities: He does have swelling of the left hand. 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 There is no evidence of infection of the hand. There is no erythema there is no induration. There is no no temperature abnormality of the hand. He has a normal radial pulse. Normal capillary refill. Normal movement of all the fingers. He does not have swelling of the forearm, minimal swelling at the wrist. No swelling at the elbow. Full range of motion at the elbow and wrist without pain. His bilateral lower extremities to not have pitting edema, he does have compression socks on. Const: Vital Signs, click to edit/add: Vital Signs - 24 hr 06/11/24 17:56 Temperature 96.9 F L Pulse Rate [Pulse Oximeter] 69 Respiratory Rate 18 Blood Pressure [Ri ght Upper Arm] 137/74 Pulse Oximetry 99 Oxygen Delivery Me thod Room Air Course Vital Signs Vital signs: Initial Vital Signs Temperature 96.9 F L 06/11/24 17:56 Temperature Source Temporal Artery Scan 06/11/24 17:56 Pulse Rate 69 06/11/24 17:56 Pulse Rhythm Regular 06/11/24 17:56 Respiratory Rate 18 06/11/24 17:56 Blood Pressure 137/74 06/11/24 17:56 Blood Pressure Mean 95 06/11/24 17:56 Blood Pressure Position Sitting 06/11/24 17:56 Pulse Oximetry 99 06/11/24 17:56 Oxygen Delivery Method Room Air 06/11/24 17:56 Vital Signs Temperature 96.9 F L 06/11/24 17:56 Pulse Rate 69 06/11/24 17:56 Respiratory Rate 18 06/11/24 17:56 Blood Pressure 137/74 06/11/24 17:56 Pulse Oximetry 99 06/11/24 17:56 Oxygen Delivery Method Room Air 06/11/24 17:56 Temperature 96.9 F L 06/11/24 17:56 Pulse Rate 69 06/11/24 17:56 Respiratory Rate 18 06/11/24 17:56 Blood Pressure 137/74 06/11/24 17:56 Pulse Oximetry 99 06/11/24 17:56 Oxygen Delivery Method Room Air 06/11/24 17:56 Medical Decision Making MDM Narrative Medical decision making narrative: 84-year-old male with swelling of the left hand. Differential diagnoses includes arthritis, gout, cellulitis, DVT. However, without pain, erythema I do not think that gout or cellulitis are likely. Given the fact that the patient is on Eliquis and is not having any pain I think that an upper extremity DVT is unlikely. At this point we discussed elevating the arm when at rest and doing gentle squeezing exercises of the hand. Recommend he keep his appointment tomorrow with Dr. Toscano for follow-up. Discharge Plan Discharge Clinical Impression: Hand swelling Patient Disposition: Home, Self-Care Condition: Stable Additional Instructions: Elevate hand when at rest. Do gentle squeezing exercises with the hand to help alleviate swelling. Follow-up with your primary care provider as scheduled. Prescriptions: No Action trospium 20 mg tablet 20 mg PO DAILY tamsulosin 0.4 mg capsule 0.4 mg PO DAILY gabapentin 300 mg capsule 300 mg PO QPM cyanocobalamin (vitamin B-12) 1,000 mcg capsule 1,000 mcg PO QDAY acetaminophen 500 mg capsule 500 mg PO Q6H PRN glipizide 10 mg tablet extended release 24hr 10 mg PO DAILY nitroglycerin 0.4 mg tablet, sublingual 0.4 mg sublingual Q5M PRN metoprolol succinate 25 mg tablet extended release 24 hr 12.5 mg PO DAILY rosuvastatin 20 mg tablet 20 mg PO QPM Jardiance 10 mg tablet 5 mg PO DAILY (DME) True Metrix Glucose Test Strip Strip MISCELLANEOUS Patient Comments: TEST 2 TIMES PER WEEK. metformin 500 mg tablet extended release 24 hr 2,000 mg PO DAILY Patient Comments: TAKE 4 TABLETS (2,000 MG) BY MOUTH ONCE DAILY WITH EVENING MEAL. Eliquis 5 mg tablet 5 mg PO Q12H Patient Comments: TAKE 1 TABLET (5 MG) BY MOUTH TWO TIMES DAILY. terbinafine HCl 250 mg tablet 250 mg PO DAILY furosemide 20 mg tablet 20 mg PO DAILY potassium chloride 20 mEq tablet,ER particles/crystals 20 meq PO DAILY triamcinolone acetonide 0.1 % ointment topical 3XD aspirin 81 mg capsule 81 mg PO DAILY Follow Up/Referrals: Bari Toscano MD [Primary Care Provider] - Stand Alone Forms: [employer] Info Instructions
--- OUTSIDE RECORDS SUMMARY | 2024-06-11 18:29 | XMS_ITS | Clinical Summary ---
Author Organization [facility] Address [address] [place] [address] Care Team Providers Care Pantograph Operator Name Role Phone [facility] Unavailable + Rocael Gamez Unavailable Bari Toscano MD Primary Care Provider Hudson Valle MD Unavailable [phone] Allergies No known active allergies Medications lancets [...] - 06/09/2024 11:59 PM CDT Hospital Encounter [facility] [address] [place] [address] 06/09/2024 Travel 06/07/2024 9:50 AM CDT - 06/07/2024 11:59 PM CDT Hospital Encounter [facility] [address] [place] [address] 06/07/2024 Travel 06/05/2024 2:00 PM CDT Ancillary Procedure [facility] [address] [place] [address] 06/05/2024 9:46 AM CDT - 06/05/2024 11:59 PM CDT Hospital Encounter [facility] [address] [place] [address] 06/05/2024 Travel 06/05/[address] [place] [address] Jose, JEFFERY Briggs Concerns 06/02/2024 10:30 AM CDT Office Visit [facility] [address] [place] [address] Bari Toscano MD Medicare ANNUAL (subsequent) Visit (84 year old) 06/02/2024 8:17 AM CDT - 06/02/2024 11:59 PM CDT Hospital Encounter [facility] [address] [place] [address] 06/02/2024 Travel 05/31/2024 9:39 AM CDT - 05/31/2024 11:59 PM CDT Hospital Encounter [facility] 200 [place] [address] 05/31/2024 Travel 05/29/2024 9:44 AM CDT - 05/29/2024 11:59 PM CDT Hospital Encounter [facility] [address] [facility] [place] [address] 05/28/2024 Travel 05/26/2024 9:48 AM CDT - 05/26/2024 11:59 PM CDT Hospital Encounter [facility] [address] [place] [address] 05/26/2024 Travel 05/24/2024 9:58 AM CDT - 05/24/2024 11:59 PM CDT Hospital Encounter [facility] [address] [place] [address] 05/24/2024 8:15 AM CDT Office Visit [facility] [address] [place] [address] Pamela Oreilly MD Follow Up (Left buttock abscess/) 05/24/2024 Travel 05/23/2024 1:15 PM CDT Office Visit [facility] [address] [place] [address] Bari Toscano MD Follow Up; Arm Pain/problem (Left arm pain and swelling, started about 4 days ) 05/22/2024 9:45 AM CDT - 05/22/2024 11:59 PM CDT Hospital Encounter [facility] [address] [place] [address] 05/22/2024 Travel 05/19/2024 9:41 AM CDT - 05/19/2024 11:59 PM CDT Hospital Encounter [facility] [address] [facility] [place] [facility] [place] [address] 05/19/2024 Travel 05/17/2024 9:48 AM CDT - 05/17/2024 11:59 PM CDT Hospital Encounter [facility] [address] [place] [address] 05/17/2024 Refill [facility] [address] [facility] [place] [address] Brayden Velázquze MD Refill Request (Prednisone) 05/17/2024 Travel 05/15/2024 10:00 AM CDT - 05/15/2024 11:59 PM CDT Hospital Encounter [facility] [address] [facility] [place] [facility] [place] [address] 05/15/2024 Travel 05/12/2024 9:40 AM CDT - 05/12/2024 11:59 PM CDT Hospital Encounter [facility] [address] [place] [address] 05/12/2024 Travel 05/10/2024 9:43 AM CDT - 05/10/2024 11:59 PM CDT Hospital Encounter [facility] [place] [address] 05/10/2024 Travel 05/09/2024 1:45 PM CDT Office Visit [facility] [address] [place] [address] Nessa Serrato MD Follow Up (Left buttock abscess) 05/09/2024 11:20 AM CDT Office Visit [facility] [address] [place] [address] Bari Toscano MD Follow Up (Rash on legs); Fatigue 05/09/2024 Orders Only [facility] [address] [place] [address] Bari Toscano MD <No scans attached> 05/08/2024 9:46 AM CDT - 05/08/2024 11:59 PM CDT Hospital Encounter [facility] [address] [place] [address] 05/08/2024 Travel 05/05/2024 9:37 AM LANGUAGE TEACHER - 05/05/2024 11:59 PM LANGUAGE TEACHER Hospital Encounter [facility] [address] [place] [address] 05/05/2024 Travel 05/02/2024 2:00 PM LANGUAGE TEACHER Office Visit [facility] [address] [place] [address] Nessa Serrato MD Follow Up (Left buttock abscess) 05/01/2024 9:49 AM LANGUAGE TEACHER - 05/01/2024 11:59 PM LANGUAGE TEACHER Hospital Encounter [facility] [address] [place] [address] 05/01/2024 Travel 04/28/2024 10:00 AM LANGUAGE TEACHER - 04/28/2024 11:59 PM LANGUAGE TEACHER Hospital Encounter [facility] [address] [place] [address] 04/28/2024 Travel 04/26/2024 10:00 AM LANGUAGE TEACHER - 04/26/2024 11:59 PM LANGUAGE TEACHER Hospital Encounter [facility] [address] [place] [address] 04/26/2024 9:00 AM LANGUAGE TEACHER Office Visit [facility] [id number] [place] [address] [address] [place] [address] Melanie Garcia PA Follow Up (6 Week follow up apt. S/P ANGIO - DX;HFrEF (heart failure with reduced ejection fraction) (HC); Abnormal cardiac CT angiography; PINEDA; echo 01/13; ekg 02/10 //pt states he feels tired but has no cardiac sx./) 04/26/2024 Travel 04/25/2024 4:15 PM LANGUAGE TEACHER Office Visit [facility] [address] [place] [address] Nessa Serrato MD Follow Up (Left buttock abscess) 04/25/2024 1:11 PM LANGUAGE TEACHER - 04/25/2024 11:59 PM LANGUAGE TEACHER Hospital Encounter [facility] [address] [place] [address] Bari Toscano MD Jacobs, Katherine Marie, OT Lymphedema 04/24/2024 9:37 AM LANGUAGE TEACHER - 04/24/2024 11:59 PM LANGUAGE TEACHER Hospital Encounter [facility] [address] [place] [address] 04/24/2024 Travel 04/22/2024 Refill [facility] [address] [place] [address] Bari Toscano MD Refill Request (Jardiance) 04/21/2024 9:48 AM LANGUAGE TEACHER - 04/21/2024 11:59 PM LANGUAGE TEACHER Hospital Encounter [facility] [address] [place] [address] 04/21/2024 Travel 04/19/2024 1:09 PM LANGUAGE TEACHER - 04/19/2024 11:59 PM LANGUAGE TEACHER Hospital Encounter [facility] [address] [place] [address] 04/19/2024 9:15 AM LANGUAGE TEACHER Office Visit [facility] [address] [place] [address] Pamela Oreilly MD Consult (Cellulitis on left buttocks) 04/19/2024 Travel 04/17/2024 2:05 PM LANGUAGE TEACHER Office Visit [facility] [address] [place] [address] Bari Toscano MD Follow Up (Cellulitis on left buttock) 04/17/2024 9:57 AM LANGUAGE TEACHER - 04/17/2024 11:59 PM LANGUAGE TEACHER Hospital Encounter [facility] [address] [place] [address] 04/17/2024 Travel 04/16/2024 Orders Only [facility] Scanner 1 scan: (1-Ord) MOBILE, MULTIPLE LABS, 04/16/2024 04/16/2024 Orders Only [facility] Scanner 1 scan: (1-Ord) [facility], PELVIS WO CON, 04/16/2024 04/14/2024 11:20 AM LANGUAGE TEACHER Office Visit [facility] [address] [place] [address] Bari Toscano MD Follow Up (Follow up from 04/13/24/Painful injection site) 04/14/2024 Orders Only [facility] Scanner 1 scan: (1-Ord) MOBILE ED, US LOWER EXTREMITY RT NON VASCULAR, 04/14/2024 04/13/2024 3:15 PM LANGUAGE TEACHER Ancillary Procedure [facility] [address] [facility] [place] [address] 04/13/2024 1:40 PM LANGUAGE TEACHER Office Visit [facility] [address] [place] [address] Bari Toscano MD Derm Problem (Left buttock sore hard/red) 04/13/2024 10:43 AM LANGUAGE TEACHER - 04/13/2024 11:59 PM LANGUAGE TEACHER Hospital Encounter [facility] [address] [place] [address] Mayelin Skinner NP 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/2024 Travel 04/04/2024 11:20 AM LANGUAGE TEACHER Office Visit [facility] [address] [place] [address] Bari Toscano MD Hospital F/U (ANW, 03/10/2024 - 03/20/2024, Three Links, 03/20/2024 - 03/31/2024, triple bypass surgery) 04/04/2024 Travel 03/27/2024 Lab Requisition [facility] [phone] Edilma Sutherland NP 03/10/2024 9:21 AM LANGUAGE TEACHER - 03/20/2024 12:15 PM LANGUAGE TEACHER Hospital Encounter [facility] [address] [place] [address] Tonja Redman MD S/P CABG x 3 (Primary Dx); Type 2 diabetes mellitus without complication, without long-term current use of insulin (HC) Discharge Disposition: Alf Facility from Last 3 Months Immunizations Immunization [...] on file Legal Sex Male 5:25 AM LANGUAGE TEACHER Gender Identity Not on file Sexual Orientation Not on file Obstetrics History Last Filed Vital Signs Vital Sign Reading Time Taken Comments Blood Pressure 108/68 06/02/2024 10:28 AM CDT Pulse 78 06/02/2024 10:28 AM CDT Temperature 36.8 C (98.2 F) 03/20/2024 7:48 AM LANGUAGE TEACHER Respiratory Rate 20 04/13/2024 3:00 PM LANGUAGE TEACHER Oxygen Saturation 96% 06/02/2024 10: 28 AM CDT Inhaled Oxygen Concentration - - Weight 93.8 kg (206 lb 12.8 oz) 025 10:28 AM CDT Height 170.2 cm (5' 7) 06/02/2024 10:2 8 AM CDT Body Mass Index 32.39 06/02/2024 10:28 AM CDT Plan of Treatment Upcoming Encounters Date Type Department Care Team (Late st Contact Info) Description 06/12/2024 10:00 AM CDT Appointment [address] [address] 06/12/2024 1:40 PM CDT Office Visit [facility] [address] [place] [address] Bari Toscano MD [address] [place] [address] 06/14/2024 10:00 AM CDT Appointment [address] [address] 06/15/2024 2:00 PM CDT Office Visit [facility] [address] [facility] [address] [place] [address] [place] [address] [facility] [address] [place] [address] 06/16/2024 10:00 AM CDT Appointment [address] [address] 06/19/2024 10:00 AM CDT Appointment [address] [address] 06/21/2024 10:00 AM CDT Appointment [facility] [address] [place] [address] 06/23/2024 10:00 AM CDT Appointment [facility] 200 [facility] [place] [address] 06/26/2024 10:00 AM CDT Appointment [facility] [address] [place] [address] 06/28/2024 10:00 AM CDT Appointment [facility] [address] [place] [address] 06/30/2024 10:00 AM CDT Appointment [facility] [address] [place] [address] 07/03/2024 10:00 AM CDT Appointment [facility] [address] [place] [address] 07/05/2024 10:00 AM CDT Appointment [facility] [address] [place] [address] 09/11/2024 10:30 AM CDT Office Visit [facility] [address] [place] [address] Bari Toscano MD [address] [place] [address] 10/04/2024 Cardiac Device Check [facility] [phone] Health Maintenance Due Date Last Done Comments [...] history exists Medical Devices Implanted Type Area Repairer Controller Tester Device Identifier Shelf Expiration Date Model / Serial / Lot Occluder Meghan 40mm Atriclip Flex V Exclusion Sys - [id number] Implanted:Qty: 1 on 03/10/2024 by Tonja Redman MD at [facility] N/A: [employer] 12/30/2024 [id number] / / [id number] Description:Atri[employer]ure AtriCli p . SIZE: 40MM. REF: [id number]. LOT: [id number]. Implanted on 03/10/[address] Redman at [facility]. Procedures Procedure Name Priority Date/Time Associated Diagnosis [...] AM CDT SCAN-CARDIAC REHABILITATION 05/05/2024 9:53 AM LANGUAGE TEACHER SCAN-CARDIAC REHABILITATION 05/01/2024 9:59 AM LANGUAGE TEACHER SCAN-CARDIAC REHABILITATION 04/28/2024 1:25 PM LANGUAGE TEACHER GLUCOSE METER Routine 04/26/2024 2:21 PM LANGUAGE TEACHER GLUCOSE METER Routine 04/26/2024 1:28 PM LANGUAGE TEACHER SCAN-CARDIAC REHABILITATION 04/26/2024 1:25 PM LANGUAGE TEACHER GLUCOSE METER Routine 04/24/2024 10:45 AM LANGUAGE TEACHER SCAN-CARDIAC REHABILITATION 04/24/2024 9:56 AM LANGUAGE TEACHER GLUCOSE METER Routine 04/24/2024 9:49 AM LANGUAGE TEACHER GLUCOSE METER Routine 04/21/2024 10:54 AM LANGUAGE TEACHER GLUCOSE METER Routine 04/21/2024 10:09 AM LANGUAGE TEACHER SCAN-CARDIAC REHABILITATION 04/21/2024 9:56 AM LANGUAGE TEACHER GLUCOSE METER Routine 04/19/2024 2:20 PM LANGUAGE TEACHER SCAN-CARDIAC REHABILITATION 04/19/2024 1:32 PM LANGUAGE TEACHER GLUCOSE METER Routine 04/19/2024 1:31 PM LANGUAGE TEACHER AMB PROC DOC INCISION AND DRAINAGE Routine 04/19/2024 10:17 AM LANGUAGE TEACHER Left buttock abscess GLUCOSE METER Routine 04/17/2024 10:32 AM LANGUAGE TEACHER GLUCOSE METER Routine 04/17/2024 10:14 AM LANGUAGE TEACHER SCAN-CARDIAC REHABILITATION 04/17/2024 9:50 AM LANGUAGE TEACHER SCAN-CARDIAC REHABILITATION 04/17/2024 9:50 AM LANGUAGE TEACHER SCAN-LABORATORY REPORT 12:00 AM LANGUAGE TEACHER SCAN-CT INTERPRETATION 5 12:00 AM LANGUAGE TEACHER SCAN-ULTRASOUND REPORT 5 12:00 AM LANGUAGE TEACHER US LOWER EXTREMITY SOFT TISSUE LEFT STAT 04/13/2024 2:49 PM LANGUAGE TEACHER Leg swelling SCAN-CARDIAC REHABILITATION 04/13/2024 12:04 PM LANGUAGE TEACHER CBC WITH AUTO DIFFERENTIAL Routine 03/28/2024 8:03 AM LANGUAGE TEACHER Anemia, unspecified CBC WITH AUTO DIFFERENTIAL Routine 03/28/2024 8:03 AM LANGUAGE TEACHER Anemia, unspecified SCAN-CARDIAC STRIP 03/20/2024 8: 42 AM LANGUAGE TEACHER GLUCOSE METER Timed 03/20/2024 7:49 AM LANGUAGE TEACHER HEMOGLOBIN Early AM 03/20/2024 6:42 AM LANGUAGE TEACHER BASIC METABOLIC PANEL Early AM 03/20/2024 6:42 AM LANGUAGE TEACHER SCAN-CARDIAC STRIP 03/20/2024 1: 16 AM LANGUAGE TEACHER GLUCOSE METER Timed 03/19/2024 9:32 PM LANGUAGE TEACHER GLUCOSE METER Timed 03/19/2024 5:23 PM LANGUAGE TEACHER SCAN-CARDIAC STRIP 03/19/2024 12 :24 PM LANGUAGE TEACHER GLUCOSE METER Timed 03/19/2024 11:31 AM LANGUAGE TEACHER GLUCOSE METER Timed 03/19/2024 8:26 AM LANGUAGE TEACHER HEMOGLOBIN Early AM 03/19/2024 5:52 AM LANGUAGE TEACHER SCAN-CARDIAC STRIP 03/19/2024 4: 13 AM LANGUAGE TEACHER POTASSIUM Timed 03/18/2024 7:32 PM LANGUAGE TEACHER GLUCOSE METER Timed 03/18/2024 5:37 PM LANGUAGE TEACHER SCAN-CARDIAC STRIP 03/18/2024 4: 00 PM LANGUAGE TEACHER GLUCOSE METER Timed 03/18/2024 7:27 AM LANGUAGE TEACHER HEMOGLOBIN Early AM 03/18/2024 6:33 AM LANGUAGE TEACHER BASIC METABOLIC PANEL Early AM 03/18/2024 6:33 AM LANGUAGE TEACHER GLUCOSE METER Timed 03/17/2024 5:32 PM LANGUAGE TEACHER SCAN-CARDIAC STRIP 03/17/2024 3: 37 PM LANGUAGE TEACHER POTASSIUM Timed 03/17/2024 11:49 AM LANGUAGE TEACHER HEMOGLOBIN Today 03/17/2024 11:49 AM LANGUAGE TEACHER SCAN-CARDIAC STRIP 03/17/2024 9: 40 AM LANGUAGE TEACHER HEMOGLOBIN Early AM 03/17/2024 6:56 AM LANGUAGE TEACHER BASIC METABOLIC PANEL Early AM 03/17/2024 6:56 AM LANGUAGE TEACHER GLUCOSE METER Timed 03/16/2024 9:17 PM LANGUAGE TEACHER GLUCOSE METER Timed 03/16/2024 4:17 PM LANGUAGE TEACHER GLUCOSE METER Timed 03/16/2024 12:35 PM LANGUAGE TEACHER SCAN-CARDIAC STRIP 03/16/2024 9: 18 AM LANGUAGE TEACHER GLUCOSE METER Timed 03/16/2024 7:43 AM LANGUAGE TEACHER MAGNESIUM Early AM 03/16/2024 7:05 AM LANGUAGE TEACHER BASIC METABOLIC PANEL Early AM 03/16/2024 7:05 AM LANGUAGE TEACHER HEMOGLOBIN Early AM 03/16/2024 7:04 AM LANGUAGE TEACHER SCAN-CARDIAC STRIP 03/16/2024 1: 39 AM LANGUAGE TEACHER SCAN-CARDIAC STRIP 03/15/2024 10 :18 PM LANGUAGE TEACHER GLUCOSE METER Timed 03/15/2024 9:11 PM LANGUAGE TEACHER GLUCOSE METER Timed 03/15/2024 4:39 PM LANGUAGE TEACHER POTASSIUM Timed 03/15/2024 2:58 PM LANGUAGE TEACHER GLUCOSE METER Timed 03/15/2024 11:13 AM LANGUAGE TEACHER GLUCOSE METER Timed 03/15/2024 7:42 AM LANGUAGE TEACHER BASIC METABOLIC PANEL Early AM 03/15/2024 6:15 AM LANGUAGE TEACHER CBC W PLT NO DIFF Early AM 03/15/2024 6:1 5 AM LANGUAGE TEACHER MAGNESIUM Early AM 03/15/2024 6:15 AM LANGUAGE TEACHER SCAN-CARDIAC STRIP 03/15/2024 12 :37 AM LANGUAGE TEACHER GLUCOSE METER Timed 03/14/2024 8:56 PM LANGUAGE TEACHER GLUCOSE METER Timed 03/14/2024 5:27 PM LANGUAGE TEACHER SCAN-CARDIAC STRIP 03/14/2024 3: 10 PM LANGUAGE TEACHER GLUCOSE METER Timed 03/14/2024 12:43 PM LANGUAGE TEACHER GLUCOSE METER Timed 03/14/2024 9:29 AM LANGUAGE TEACHER POTASSIUM Early AM 03/14/2024 6:26 AM LANGUAGE TEACHER MAGNESIUM Early AM 03/14/2024 6:26 AM LANGUAGE TEACHER SCAN-CARDIAC STRIP 03/13/2024 10 :58 PM LANGUAGE TEACHER GLUCOSE METER Timed 03/13/2024 9:21 PM LANGUAGE TEACHER GLUCOSE METER Timed 03/13/2024 5:18 PM LANGUAGE TEACHER EKG 12 LEAD STAT 03/13/2024 1:09 PM LANGUAGE TEACHER GLUCOSE METER Timed 03/13/2024 11:58 AM LANGUAGE TEACHER SCAN-CARDIAC STRIP 03/13/2024 9: 12 AM LANGUAGE TEACHER PHOSPHORUS Early AM 03/13/2024 8:22 AM LANGUAGE TEACHER MAGNESIUM Early AM 03/13/2024 8:22 AM LANGUAGE TEACHER CALCIUM IONIZED HOSPITAL DRAW ONLY Early AM 03/13/2024 8:22 AM LANGUAGE TEACHER BASIC METABOLIC PANEL Early AM 03/13/2024 8:22 AM LANGUAGE TEACHER CBC W PLT NO DIFF Early AM 03/13/2024 8:2 2 AM LANGUAGE TEACHER PROTIME-INR Early AM 03/13/2024 8:22 AM LANGUAGE TEACHER XR CHEST 1 VIEW PORTABLE Routine 03/13/2024 8:13 AM LANGUAGE TEACHER GLUCOSE METER Timed 03/13/2024 8:04 AM LANGUAGE TEACHER SCAN-CARDIAC STRIP 03/13/2024 1: 29 AM LANGUAGE TEACHER from Last 3 Months Results * SCAN-CARDIAC [...] NWA Referring MD: MELANIE ALEXANDRA CASE Site: [facility] Reading Location: Mobile-OP Patient Location: Outpatient. [...] . This study was interpreted by an [facility] accredited facility. Final Procedure Note Patrice Briseno MD - 06/05/2024 ECHOCARDIOGRAM MAC YARBROUGH : 1940 84 years Study Date: 06/05/2024 2:07:22 PM Gender: M BP: 108/68 mmHg Height: 170.00 cm BSA: 2.05 m Weight: 94.00 kg Tech: EKATERINA Referring MD: MELANIE ALEXANDRA CASE Site: [facility] Reading Location: Mobile-OP Patient Location: Outpatient. [...] . This study was interpreted by an [facility] accredited facility. Final us Melanie GIL ECHO ORD Final Res ult * LIPID PANEL W REFLEX MEASURED LDL (05/23/2024 1:49 PM CDT) CHOLESTEROL, TOTAL 92 <200 mg/dL [facility] HDL CHOLESTEROL 40 > OR = 40 mg/dL [facility] TRIGLYCERIDES 87 <150 mg/dL [facility] LDL-CHOLESTEROL 35 mg/dL (calc) [facility] Comment: Reference range: <100 Desirable range <100 mg/dL for primary prevention; <70 mg/dL for patients with CHD or diabetic patients with > or = 2 CHD risk factors. LDL-C is now calculated using the Magui calculation, which is a validated novel method providing better accuracy than the Friedewald equation in the estimation of LDL-C. Frandy SS et al. KAMILA. 2013;310(19): 2964-0103 (http://education.Datavolution/faq/BTS025) CHOL/HDLC RATIO 2.3 <5.0 (calc) [facility] NON HDL CHOLESTEROL 52 <130 mg/dL (calc) [facility] Comment: For patients with diabetes plus 1 major ASCVD risk factor, treating to a non-HDL-C goal of <100 mg/dL (LDL-C of <70 mg/dL) is considered a therapeutic option. Blood BLOOD SPECIMEN / Unknown 05/23/2024 1:49 PM CDT 05/23/2024 1:49 PM CDT Bari Toscano MD CHEMISTRY Final Result [facility] [address] [place] [address], [facility] [address] [place] [address] * (ABNORMAL) BASIC METABOLIC PANEL (05/23/2024 1:49 PM CDT) Only the most recent of8 resultswithin the time period is included. GLUCOSE 197(H) 65 - 99 mg/dL [facility] Comment: Fasting reference interval For someone without known diabetes, a glucose value >125 mg/dL indicates that they may have diabetes and this should be confirmed with a follow-up test. UREA NITROGEN (BUN) 25 7 - 25 mg/dL [facility] CREATININE 1.13 0.70 - 1.22 mg/dL [...] CDT Bari Toscano MD CHEMISTRY Final Result [facility] [address] [place] [address], [address] [address] * (ABNORMAL) CBC AND DIFFERENTIAL (05/09/2024 11:58 [...] 11:58 AM CDT 05/09/2024 11:58 AM CDT Bari Toscano MD HEMATOLOGY Final Result [facility] [address] [place] [address], [facility] [address] [place] [address] * (ABNORMAL) HEMOGLOBIN A1C MONITORING (POCT) (05/09/2024 11:56 AM CDT) Pathologist [facility] POC HEMOGLOBIN A1C 6.7(H) <6.0 % OF TOTAL HGB [facility] Comment: Any point of care results exhibiting inconsistency with the patient's clinical status should be repeated using a different testing method. Blood BLOOD SPECIMEN / Unknown 05/09/2024 11:56 AM CDT 05/09/2024 11:57 AM CDT Bari Toscano MD CHEMISTRY Final Result Performing Organization Address City/[facility]/ZIP Co de Phone Number [facility] [address] [place] [address], [facility] [address] [place] [address] * (ABNORMAL) GLUCOSE METER (04/26/2024 2:21 PM LANGUAGE TEACHER) Only the most recent of34 resultswithin the time period is included. [facility] GLUCOSE METER 272(H) 65 - 100 mg/dL 04/26/2024 2:24 PM LANGUAGE TEACHER [facility] Blood BLOOD SPECIMEN / Unknown 04/26/2024 2:21 PM LANGUAGE TEACHER 04/26/2024 2:23 PM LANGUAGE TEACHER us Doctor Unknown CHEMISTRY Final Result Performing Organization Address [facility] Co de Phone Number [facility] [address] [place] [address] * Incision and Drainage (04/19/2024 10:17 AM LANGUAGE TEACHER) Narrative Pamela Oreilly MD - 04/19/2024 10:17 AM LANGUAGE TEACHER Pamela Oreilly MD 04/19/2024 10:19 AM Incision [...] sult * SCAN-LABORATORY REPORT (04/16/2024 12:00 AM LANGUAGE TEACHER) us Scanner OTHER Final Result * SCAN-CT INTERPRETATION (04/16/2024 12:00 AM LANGUAGE TEACHER) Anatomical Region Laterality Modality Other us Scanner OTHER Final Result * SCAN-ULTRASOUND REPORT (04/14/2024 12:00 AM LANGUAGE TEACHER) Anatomical Region Laterality Modality Other us Scanner OTHER Final Result * US LOWER EXTREMITY SOFT TISSUE LEFT (04/13/2024 2:49 PM LANGUAGE TEACHER) Anatomical Region Laterality Modality ARM R Ultrasound 04/13/2024 3:00 PM LANGUAGE TEACHER Narrative 04/13/2024 3:00 PM LANGUAGE TEACHER For Patients: As a result of the [...] 04/13/2024 3:00:08 PM (Electronically Signed) us Bari Toscano MD US Final Result * (ABNORMAL) CBC WITH AUTO DIFFERENTIAL (03/28/2024 8:03 AM [facility]) WHITE BLOOD COUNT 7.8 4.5 - 11.0 thou/cu mm 03/28/2024 8:48 AM [facility] RED BLOOD COUNT 3.41(L) 4.30 - 5.90 mil/cu mm 03/28/2024 8:48 AM [facility] HEMOGLOBIN 9.9(L) 13.5 - 17.5 g/dL 03/28/2024 8:48 AM [facility] HEMATOCRIT 33.1(L) 37.0 - 53.0 % 03/28/2024 8:48 AM [facility] MCV 97 80 - 100 fL 03/28/2024 8:48 AM [facility] MCH 29.0 26.0 - 34.0 pg 03/28/2024 8:48 AM [facility] MCHC 29.9(L) 32.0 - 36.0 g/dL 03/28/2024 8:48 AM [facility] RDW 14.6 11.5 - 15.5 % 03/28/2024 8:48 AM [facility] PLATELET COUNT 324 140 - 440 thou/cu mm 03/28/2024 8:48 AM [facility] MPV 10.2 6.5 - 11.0 fL 03/28/2024 8:48 AM [facility] % NEUT 68.9 % 03/28/2024 8:48 AM [facility] % LYMPH 17.7 % 03/28/2024 8:48 AM [facility] % MONO 8.9 % 03/28/2024 8:48 AM [facility] % EOS 4.4 % 03/28/2024 8:48 AM [facility] % BASO 0.1 % 03/28/2024 8:48 AM [facility] ABSOLUTE NEUTROPHILS 5.4 1.7 - 7.0 thou/cu mm 03/28/2024 8:48 AM [facility] ABSOLUTE LYMPHOCYTES 1.4 0.9 - 2.9 thou/cu mm 03/28/2024 8:48 AM [facility] ABSOLUTE MONOCYTES 0.7 <0.9 thou/cu mm 03/28/2024 8:48 AM [facility] ABSOLUTE EOSINOPHILS 0.3 <0.5 thou/cu mm 03/28/2024 8:48 AM [facility] ABSOLUTE BASOPHILS 0.0 <0.3 thou/cu mm 03/28/2024 8:48 AM [facility] Blood BLOOD SPECIMEN / Unknown Butterfly / Unknown 03/28/2024 8:03 AM LANGUAGE TEACHER 03/28/2024 8:35 AM LANGUAGE TEACHER us Edilma Sutherland CONTRACT PROJECT MANAGER HEMATOLOGY Final Resul t [facility] [address] [place] [id number] * SCAN-CARDIAC STRIP (03/20/2024 8:42 AM LANGUAGE TEACHER) us Scanner OTHER Final Result * (ABNORMAL) HEMOGLOBIN (03/20/2024 6:42 AM LANGUAGE TEACHER) Only the most recent of6 resultswithin the time period is included. HEMOGLOBIN 10.1(L) 13.5 - 17.5 g/dL 03/20/2024 7:[address] [facility] MCV 93 80 - 100 fL 03/20/2024 7:[address] [facility] Blood BLOOD SPECIMEN / Unknown Venipuncture / Unknown 03/20/2024 6:42 AM LANGUAGE TEACHER 03/20/2024 6:53 AM LANGUAGE TEACHER us Anila Palacios NP HEMATOLOGY Final R esult Performing Organization Address [facility] Co de Phone Number [facility] [address] [address], [place] * SCAN-CARDIAC STRIP (03/20/2024 1:16 AM LANGUAGE TEACHER) us Scanner OTHER Final Result * SCAN-CARDIAC STRIP (03/19/2024 12:24 PM LANGUAGE TEACHER) us Scanner OTHER Final Result * SCAN-CARDIAC STRIP (03/19/2024 4:13 AM LANGUAGE TEACHER) us Scanner OTHER Final Result * POTASSIUM (03/18/2024 7:32 PM LANGUAGE TEACHER) Only the most recent of4 resultswithin the time period is included. [facility] POTASSIUM 4.1 3.5 - 5.1 mmol/L 03/18/2024 7:56 PM LANGUAGE TEACHER [facility] Blood BLOOD SPECIMEN / Unknown Venipuncture / Unknown 03/18/2024 7:32 PM LANGUAGE TEACHER 03/18/2024 7:38 PM LANGUAGE TEACHER us Tonja Redman MD CHEMISTRY Final Res ult Performing Organization Address [facility] Co de Phone Number [facility] [address] [address], [place] * SCAN-CARDIAC STRIP (03/18/2024 4:00 PM LANGUAGE TEACHER) us Scanner OTHER Final Result * SCAN-CARDIAC STRIP (03/17/2024 3:37 PM LANGUAGE TEACHER) us Scanner OTHER Final Result * SCAN-CARDIAC STRIP (03/17/2024 9:40 AM LANGUAGE TEACHER) us Scanner OTHER Final Result * SCAN-CARDIAC STRIP (03/16/2024 9:18 AM LANGUAGE TEACHER) us Scanner OTHER Final Result * MAGNESIUM (03/16/2024 7:05 AM LANGUAGE TEACHER) Only the most recent of4 resultswithin the time period is included. [facility] MAGNESIUM 2.1 1.6 - 2.4 mg/dL 03/16/2024 7:46 AM LANGUAGE TEACHER [facility] Blood BLOOD SPECIMEN / Unknown Venipuncture / Unknown 03/16/2024 7:05 AM LANGUAGE TEACHER 03/16/2024 7:11 AM LANGUAGE TEACHER us Tonja Redman MD CHEMISTRY Final Res ult [facility] [address] [place] [address], [place] * SCAN-CARDIAC STRIP (03/16/2024 1:39 AM LANGUAGE TEACHER) us Scanner OTHER Final Result * SCAN-CARDIAC STRIP (03/15/2024 10:18 PM LANGUAGE TEACHER) us Scanner OTHER Final Result * (ABNORMAL) CBC W PLT NO DIFF (03/15/2024 6:15 AM LANGUAGE TEACHER) Only the most recent of2 resultswithin the time period is included. [facility] WHITE BLOOD COUNT 10.0 4.5 - 11.0 thou/cu mm 03/15/2024 6:35 AM LANGUAGE TEACHER [facility] RED BLOOD COUNT 2.98(L) 4.30 - 5.90 mil/cu mm 03/15/2024 6:35 AM LANGUAGE TEACHER [facility] HEMOGLOBIN 9.1(L) 13.5 - 17.5 g/dL 03/15/2024 6:35 AM LANGUAGE TEACHER [facility] HEMATOCRIT 28.2(L) 37.0 - 53.0 % 03/15/2024 6:35 AM [facility] MCV 95 80 - 100 fL 03/15/2024 6:35 AM [facility] MCH 30.5 26.0 - 34.0 pg 03/15/2024 6:35 AM [facility] MCHC 32.3 32.0 - 36.0 g/dL 03/15/2024 6:35 AM [facility] RDW 14.1 11.5 - 15.5 % 03/15/2024 6:35 AM [facility] PLATELET COUNT 162 140 - 440 thou/cu mm 03/15/2024 6:35 AM [facility] MPV 10.9 6.5 - 11.0 fL 03/15/2024 6:35 AM [facility] NRBC 0.0 % 03/15/2024 6:35 AM [facility] ABS NRBC 0.0 thou /cu mm 03/15/2024 6:35 AM [facility] Blood BLOOD SPECIMEN / Unknown Venipuncture / Unknown 03/15/2024 6:15 AM LANGUAGE TEACHER 03/15/2024 6:30 AM LANGUAGE TEACHER us Mayelin Skinner NP HEMATOLOGY Final Result [facility] [address] [place] [address], * SCAN-CARDIAC STRIP (03/15/2024 12:37 AM LANGUAGE TEACHER) us Scanner OTHER Final Result * SCAN-CARDIAC STRIP (03/14/2024 3:10 PM LANGUAGE TEACHER) us Scanner OTHER Final Result * SCAN-CARDIAC STRIP (03/13/2024 10:58 PM LANGUAGE TEACHER) us Scanner OTHER Final Result * EKG 12 LEAD (03/13/2024 1:09 PM LANGUAGE TEACHER) [facility] Interpretation Ventricular-paced rhythm with occasional and [...] NOW QTc 468 ms BEYOND NOW P Preston degrees BEYOND NOW R Preston 47 degrees BEYOND NOW T Preston 0 degrees BEYOND NOW 03/13/2024 1:09 PM LANGUAGE TEACHER 03/14/2024 5:29 PM LANGUAGE TEACHER us Mayelin Skinner CONTRACT PROJECT MANAGER EKG ORD Final Result Performing Organization Address [facility] de Phone Number BEYOND NOW [place], [place] * SCAN-CARDIAC STRIP (03/13/2024 9:12 AM LANGUAGE TEACHER) us Scanner OTHER Final Result * Protime-INR (03/13/2024 8:22 AM LANGUAGE TEACHER) [facility] INR 1.0 <1.3 03/13/2024 8:49 AM LANGUAGE TEACHER [facility] PROTIME 11.9 10.6 - 12.4 sec 03/13/2024 8:49 AM LANGUAGE TEACHER [facility] Blood BLOOD SPECIMEN / Unknown Venipuncture / Unknown 03/13/2024 8:22 AM LANGUAGE TEACHER 03/13/2024 8:33 AM LANGUAGE TEACHER Narrative [facility] - 03/13/2024 8:49 AM LANGUAGE TEACHER Therapeutic Range 2.0-3.0 for most anticoagulated patients [...] HEMATOLOGY Final Res ult Performing Organization Address City/[facility]/ZIP Co de Phone Number [facility] [address] [place] [address], [place] * PHOSPHORUS (03/13/2024 8:22 AM LANGUAGE TEACHER) PHOSPHORUS 3.1 2.5 - 4.5 mg/dL 03/13/2024 9:06 AM LANGUAGE TEACHER [facility] Blood BLOOD SPECIMEN / Unknown Venipuncture / Unknown 03/13/2024 8:22 AM LANGUAGE TEACHER 03/13/2024 8:33 AM LANGUAGE TEACHER Cain Monet MD CHEMISTRY Maia l Result Performing Organization Address [facility] Co de Phone Number [facility] [address] [place] [address], [place] * CALCIUM IONIZED HOSPITAL DRAW ONLY (03/13/2024 8:22 AM LANGUAGE TEACHER) CALCIUM,IONIZE D 1.23 1.15 - 1.27 mmol/L 03/13/2024 8:37 AM LANGUAGE TEACHER [facility] Blood BLOOD SPECIMEN / Unknown Venipuncture / Unknown 03/13/2024 8:22 AM LANGUAGE TEACHER 03/13/2024 8:33 AM LANGUAGE TEACHER Cain Monet MD CHEMISTRY Maia l Result Performing Organization Address [facility] Co de Phone Number [facility] [address] [place] [address], [place] * XR CHEST 1 VIEW PORTABLE (03/13/2024 8:13 AM LANGUAGE TEACHER) Anatomical Region Laterality Modality HEART, THORAX, CHEST Digital Rad iography 03/13/2024 9:00 AM LANGUAGE TEACHER Impressions 03/13/2024 9:00 AM LANGUAGE TEACHER 1. Resolved left pneumothorax. 2. Small bilateral pleural effusions. Dictated by Kristen Pelayo MD @ Mar 13 2024 9:00AM (Electronically Signed) [email or web address] Narrative 03/13/2024 9:00 AM LANGUAGE TEACHER For Patients: As a result of the [...] @ Mar 13 2024 9:00AM (Electronically Signed) [email or web address] us Cain Monet MD GENERAL IMAGING Maia jaimes Result * SCAN-CARDIAC STRIP (03/13/2024 1:29 AM LANGUAGE TEACHER) us Scanner OTHER Final Result from Last 3 Months Insurance * Guarantor: Mac Yarbrough Account Type Relation to Patient Date of Phone Billing Address Personal/Family Self 1940 [address] [place] [address] MEDICARE PART A HB ONLY BLUE CROSS MEDICARE ADVANTAGE MR Advance Directives Documents on File Type Date Recorded Patient Statistical Technician Expl anation Healthcare Directive 02/10/2024 INVALID , MISSING PAGE, 02/10/2024 Power of Direct Support Staff 10/19/1996 DURABLE PO WER OF PILOT CONTROL OPERATOR HELPER FOR HEALTH CARE, [facility], 10/19/1996 Power of Direct Support Staff 10/19/1996 STATUTORY SHORT FORM POWER OF PILOT CONTROL OPERATOR HELPER, [facility], 10/19/1996 Healthcare Directive 03/04/1993 HEALTH CARE DECLARATION, [facility], 03/04/1993 * Full Code (Latest [...] 7:00 PM 04/07/2012 3:58 PM Care Teams Pantograph Operator Relationship Specialty Start Date End Date Bari Toscano MD [address] [place] [address] PCP - General Family Practice 08/14/13 Pardeep Baird MBC Surgery - Orthopedics 09/09/12 Rocael Gamez [address] [place] [address] Ophthalmology Surgery 09/09/12 [place] [address] [place] [address] Rheumatology 03/07/24
--- OUTSIDE RECORDS SUMMARY | 2024-06-11 18:29 | XMS_ITS | Clinical Summary ---
Author Organization [facility] Address [address] , [address] [place] [address] Phone Care Team Providers Care Textile Screen Maker Name Role Phone Nahun Olivo Unavailable Unavailable Conditions or Problems Problem Name Problem Code Onset Date Status Entry Date Provider Comment Standard Description Annotate Leg weakness, bilateral 549434250 (SNOMED CT) Active Marco Antonio Alicea MD Paresis of lower extremity Peripheral polyneuropathy 637299983 (SNOMED CT) Active Marco Antonio Alicea MD Peripheral nerve disease Nonspecific paroxysmal spell 0546193 (SNOMED CT) 03/26 Active 03/26 Marco Antonio Alicea MD Disturbance of consciousness Mild cognitive impairment 691815886 (SNOMED CT) 03/19 Active 03/19 Marco Antonio Alicea MD Mild neurocognitive disorder Memory loss 09240766 (SNOMED CT) 10/31 Active 10/31 Marco Antonio Alicea MD Amnesia Medications Medication Instructions Start Date Stop Date Generic Name ND Provider METFORMIN HCL ER 500 MG [id number] 04/28 metformin (glucophage xr) [id number] Marco Antonio Alicea MD SODIUM CHLORIDE 0.9 % SOLN 04/28 sodium chloride 88920911556 Marco Antonio Alicea MD GABAPENTIN 300 MG CAPS TAKE 1 CAPSULE (300 MG) BY MOUTH AT BEDTIME. 04/28 gabapentin [id number] Marco Antonio Alicea MD ELIQUIS 5 MG TABS TAKE 1 TABLET (5 MG) BY MOUTH TWO TIMES DAILY. 04/28 apixaban [id number] Marco Antonio Alicea MD LISINOPRIL-HYDRO CHLOROTHIAZIDE 20-25 MG TABS 04/28 lisinopril-hydr ochlorothiazide [id number] Marco Antonio Alicea MD TRUE METRIX BLOOD GLUCOSE TEST STRP TEST 2 TIMES PER WEEK. 04/28 blood sugar diagnostic [id number] Marco Antonio Alicea MD TROSPIUM CHLORIDE 20 MG TABS TAKE ONE TABLET BY MOUTH DAILY 04/28 trospium [id number] Marco Antonio Alicea MD GLIPIZIDE ER 2.5 MG [id number] 04/28 glipizide [id number] Marco Antonio Alicea MD PREDNISONE 10 MG TABS TAKE 1-2 TABLETS (10-20 MG) BY MOUTH ONCE DAILY WITH A MEAL. DIRECTED 04/28 prednisone [id number] Marco Antonio Alicea MD TAMSULOSIN HCL 0.4 MG CAPS TAKE 1 CAPSULE (0.4 MG) BY MOUTH ONCE DAILY AFTER A MEAL. 04/28 tamsulosin [id number] Marco Antonio Alicea MD ENTRESTO 24-26 MG TABS TAKE 1 TABLET BY MOUTH TWO TIMES DAILY. sacubitril-vals karin [id number] Marco Antonio Alicea MD VITAMIN B-12 1,000 MCG TAB 1000 TAKE 1 TABLET (1,000 MCG) BY MOUTH ONCE DAILY. VITAMIN B-12 1,000 MCG TAB 1000 Marco Antonio Alicea MD JARDIANCE 10 MG TABS TAKE 1 TABLET (10 MG) BY MOUTH ONCE DAILY. empagliflozin [id number] Marco Antonio Alicea MD ELIQUIS 5 MG TABS TAKE 1 TABLET (5 MG) BY MOUTH TWO TIMES DAILY. apixaban [id number] Marco Antonio Alicea MD TROSPIUM CHLORIDE 20 MG TABS TAKE ONE TABLET BY MOUTH DAILY trospium [id number] Marco Antonio Alicea MD FUROSEMIDE 20 MG TABS TAKE 1 TABLET (20 MG) BY MOUTH ONCE DAILY IN THE MORNING. furosemide [id number] Marco Antonio Alicea MD ROSUVASTATIN CALCIUM 20 MG TABS TAKE 1 TABLET (20 MG) BY MOUTH AT BEDTIME. rosuvastatin [id number] Marco Antonio Alicea MD METOPROLOL SUCCINATE ER 25 MG [id number] TAKE 1 TABLET (25 MG) BY MOUTH ONCE DAILY. metoprolol succinate [id number] Marco Antonio Alicea MD TAMSULOSIN HCL 0.4 MG CAPS TAKE 1 CAPSULE (0.4 MG) BY MOUTH ONCE DAILY AFTER A MEAL. tamsulosin [id number] Marco Antonio Alicea MD ISOSORBIDE MONONITRATE ER 30 MG [id number] TAKE 1 TABLET (30 MG) BY MOUTH ONCE DAILY. isosorbide mononitrate [id number] Marco Antonio Alicea MD METFORMIN HCL ER 500 MG [id number] TAKE 4 TABLETS (2,000 MG) BY MOUTH ONCE DAILY WITH EVENING MEAL. metformin (glucophage xr) [id number] Marco Antonio Alicea MD NITROGLYCERIN 0.[address] 1 TABLET (0.4 MG) UNDER THE TONGUE EVERY 5 MINUTES IF NEEDED FOR CHEST PAIN. UP TO 3 TABLETS IN 15 MINUTES. nitroglycerin [id number] Marco Antonio Alicea MD GABAPENTIN 300 MG CAPS TAKE 1 CAPSULE (300 MG) BY MOUTH AT BEDTIME. gabapentin [id number] Marco Antonio Alicea MD POTASSIUM CHLORIDE GEM ER 20 MEQ CR-TABS TAKE 1 TABLET (20 MEQ) BY MOUTH ONCE DAILY. potassium chloride [id number] Marco Antonio Alicea MD TERBINAFINE HCL 1 % CREA APPLY TOPICALLY TO AFFECTED AREA(S) TWO TIMES DAILY. terbinafine hcl [id number] Marco Antonio Alicea MD TERBINAFINE HCL 250 MG TABS TAKE 1 TABLET (250 MG) BY MOUTH ONCE DAILY. terbinafine hcl [id number] Marco Antonio Alicea MD GLIPIZIDE ER 10 MG [id number] TAKE 2 TABLETS (20 MG) BY MOUTH ONCE DAILY BEFORE A MEAL. glipizide [id number] Marco Antonio Alicea MD PREDNISONE 20 MG TABS TAKE 1 TABLET (20 MG) BY MOUTH ONCE DAILY WITH A MEAL. 09/20 prednisone [id number] Yue GIL-C TROSPIUM CHLORIDE 20 MG TABS TAKE ONE TABLET BY MOUTH DAILY 04/28 trospium [id number] Yue Schulte PA-C PREDNISONE 10 MG TABS TAKE 1-2 TABLETS (10-20 MG) BY MOUTH ONCE DAILY WITH A MEAL. DIRECTED 04/28 prednisone [id number] Yue GIL-C GABAPENTIN 300 MG CAPS TAKE 1 CAPSULE (300 MG) BY MOUTH AT BEDTIME. 04/28 gabapentin [id number] Yue GIL-C ID NOW COVID-19 KIT TEST DIRECTED TODAY 09/17 covid-19 molecular test assay 65660276665 Yue Schulte PA-C PREDNISONE 20 MG TABS TAKE 1 TABLET (20 MG) BY MOUTH ONCE DAILY WITH A MEAL. 09/20 prednisone [id number] Yue Schulte PA-C ELIQUIS 5 MG TABS TAKE 1 TABLET (5 MG) BY MOUTH TWO TIMES DAILY. 04/28 apixaban [id number] Yue Schulte PA-C TAMSULOSIN HCL 0.4 MG CAPS TAKE 1 CAPSULE (0.4 MG) BY MOUTH ONCE DAILY AFTER A MEAL. 04/28 tamsulosin [id number] Yue GIL-C ID NOW COVID-19 KIT TEST DIRECTED TODAY 09/17 covid-19 molecular test assay [id number] Marco Antonio Alicea MD TRUE METRIX BLOOD GLUCOSE TEST STRP TEST 2 TIMES PER WEEK. 04/28 blood sugar diagnostic [id number] Marco Antonio Alicea MD LISINOPRIL-HYDRO CHLOROTHIAZIDE 20-25 MG TABS 04/28 lisinopril-hydr ochlorothiazide 14558910547 Marco Antonio Alicea MD METFORMIN HCL ER 500 MG [id number] 04/28 metformin [id number] Marco Antonio Alicea MD GLIPIZIDE ER 2.5 MG [id number] 06/08 glipizide [id number] Marco Antonio Alicea MD SODIUM CHLORIDE 0.9 % SOLN 04/28 sodium chloride 67192803892 Marco Antonio Alicea MD Medications Administered No [...] and results reviewed. Total score [M MSE] [id number] Normal Total scor e [MoCA] MMSE SCORE [...] Yes Consent To Release information to the [employer] ([employer]) Plan of Care Type Date Detail Pending [...] Procedures Code Procedure Name Date Entry Date [facility]-[id number] Documentation of current medicatio ns ORDERS Patient Instructions ORDERS Follow up CPT-88993 Nerve Conduction 11-12 studies CPT-35000 EMG with NCS (5+ muscles) - 2 limbs 12/22 ORDERS Patient Instructions LOINC 67960-1 MMSE ORDERS Follow up ABBY ORDERS Patient Instructions ORDERS Follow up [facility]-[id number] Documentation of current medicatio ns ORDERS Patient Instructions ORDERS Follow up ABBY in clinic or telemedicine 2 LOINC 86707-2 MMSE ORDERS Patient Instructions ORDERS Follow up telemedicine 10/31 [facility]-[id number] Documentation of current medicatio ns ORDERS Neuropsychology Evaluation 2 [facility]-[id number] Documentation of current medicatio ns LOINC 24503-0 MMSE Vital Signs No information available. Immunizations No information available. Advance Directives No information available.
--- OUTSIDE RECORDS SUMMARY | 2024-06-11 18:29 | XMS_ITS ---
Office Visit 6m pt sched R/S from 03/23 due to surgery fax Created on: April 28, 2024 Enrike Coleman : 1940 Sex: Male Author Organization [facility] Address [address] [place] [address] , [address] [place] [address] Phone Care Team Providers Care General Laborer Name Role Phone Marco Antonio Alicea MD Conditions or Problems No information available. Medications Medication Instructions Start Date Stop Date Generic Name [facility] Provider METFORMIN HCL ER 500 MG [id number] metformin (glucophage xr) [id number] Marco Antonio Alicea MD SODIUM CHLORIDE 0.9 % SOLN sodium chloride 91808042118 Marco Antonio Alicea MD GABAPENTIN 300 MG CAPS TAKE 1 CAPSULE (300 MG) BY MOUTH AT BEDTIME. gabapentin [id number] Marco Antonio Alicea MD ELIQUIS 5 MG TABS TAKE 1 TABLET (5 MG) BY MOUTH TWO TIMES DAILY. apixaban [id number] Marco Antonio Alicea MD LISINOPRIL-HYDRO CHLOROTHIAZIDE 20-25 MG TABS lisinopril-hydro chlorothiazide [id number] Marco Antonio Alicea MD TRUE METRIX BLOOD GLUCOSE TEST STRP TEST 2 TIMES PER WEEK. blood sugar diagnostic [id number] Marco Antonio Alicea MD TROSPIUM CHLORIDE 20 MG TABS TAKE ONE TABLET BY MOUTH DAILY trospium [id number] Marco Antonio Alicea MD GLIPIZIDE ER 2.5 MG [id number] glipizide [id number] Marco Antonio Alicea MD PREDNISONE 10 MG TABS TAKE 1-2 TABLETS (10-20 MG) BY MOUTH ONCE DAILY WITH A MEAL. DIRECTED prednisone [id number] Marco Antonio Alicea MD TAMSULOSIN HCL 0.4 MG CAPS TAKE 1 CAPSULE (0.4 MG) BY MOUTH ONCE DAILY AFTER A MEAL. tamsulosin [id number] Marco Antonio Alicea MD ENTRESTO 24-26 MG TABS TAKE 1 TABLET BY MOUTH TWO TIMES DAILY. sacubitril-valsa rtan [id number] Marco Antonio Alicea MD VITAMIN B-12 1,000 MCG TAB 1000 TAKE 1 TABLET (1,000 MCG) BY MOUTH ONCE DAILY. VITAMIN B-12 1,000 MCG TAB 1000 Marco Antonio Alicea MD JARDIANCE 10 MG TABS TAKE 1 TABLET (10 MG) BY MOUTH ONCE DAILY. empagliflozin [id number] Marco Antonio Alicea MD ELIQUIS 5 MG TABS TAKE 1 TABLET (5 MG) BY MOUTH TWO TIMES DAILY. apixaban [id number] Marco Antonio Alicea MD TROSPIUM CHLORIDE 20 MG TABS TAKE ONE TABLET BY MOUTH DAILY trospium [id number] Marco Antonio Alicea MD FUROSEMIDE 20 MG TABS TAKE 1 TABLET (20 MG) BY MOUTH ONCE DAILY IN THE MORNING. furosemide [id number] Marco Antonio Alicea MD ROSUVASTATIN CALCIUM 20 MG TABS TAKE 1 TABLET (20 MG) BY MOUTH AT BEDTIME. rosuvastatin [id number] Marco Antonio Alicea MD METOPROLOL SUCCINATE ER 25 MG [id number] TAKE 1 TABLET (25 MG) BY MOUTH ONCE DAILY. metoprolol succinate [id number] Marco Antonio Alicea MD TAMSULOSIN HCL 0.4 MG CAPS TAKE 1 CAPSULE (0.4 MG) BY MOUTH ONCE DAILY AFTER A MEAL. tamsulosin [id number] Marco Antonio Alicea MD ISOSORBIDE MONONITRATE ER 30 MG [id number] TAKE 1 TABLET (30 MG) BY MOUTH ONCE DAILY. isosorbide mononitrate [id number] Marco Antonio Alicea MD METFORMIN HCL ER 500 MG [id number] TAKE 4 TABLETS (2,000 MG) BY MOUTH ONCE DAILY WITH EVENING MEAL. metformin (glucophage xr) [id number] Marco Antonio Alicea MD NITROGLYCERIN 0.[address] 1 TABLET (0.4 MG) UNDER THE TONGUE EVERY 5 MINUTES IF NEEDED FOR CHEST PAIN. UP TO 3 TABLETS IN 15 MINUTES. nitroglycerin [id number] Marco Antonio Alicea MD GABAPENTIN 300 MG CAPS TAKE 1 CAPSULE (300 MG) BY MOUTH AT BEDTIME. gabapentin [id number] Marco Antonio Alicea MD POTASSIUM CHLORIDE GEM ER 20 MEQ CR-TABS TAKE 1 TABLET (20 MEQ) BY MOUTH ONCE DAILY. potassium chloride [id number] Marco Antonio Alicea MD TERBINAFINE HCL 1 % CREA APPLY TOPICALLY TO AFFECTED AREA(S) TWO TIMES DAILY. terbinafine hcl [id number] Marco Antonio Alicea MD TERBINAFINE HCL 250 MG TABS TAKE 1 TABLET (250 MG) BY MOUTH ONCE DAILY. terbinafine hcl [id number] Marco Antonio Alicea MD GLIPIZIDE ER 10 MG [id number] TAKE 2 TABLETS (20 MG) BY MOUTH ONCE DAILY BEFORE A MEAL. glipizide [id number] Marco Antonio Alicea MD Medications Administered No [...] Procedures Code Procedure Name Date Entry Date [facility]-[id number] Documentation of current medicatio ns ORDERS Patient Instructions Vital Signs No information available. Immunizations No information available. Advance Directives No information available.
--- OUTSIDE RECORDS SUMMARY | 2024-06-11 18:29 | XMS_ITS | Clinical Summary ---
Author Organization [facility] Address [address], [place] [address] Care Team Providers Care Child Development Consultant Name Role Phone Unavailable Primary Care Provider [...] for each transition of care or referral. [facility] Allergies No known active allergies Medications metFORMIN [...]
[2024-06-11 18:45] VITALS: BP 137/74; PULSE 69; RESP 18; TEMP 36.1
== END 2024-06-11 18:47 | disposition home or self-care (01) ==
PROVIDERS: Emergency Provider Family Medicine; PCP Family Medicine
DX: R22.32 Localized swelling, mass and lump, left upper limb (principal)
CPT/HCPCS: 99282; 99283

== ENCOUNTER 2024-12-28 04:11 | Outpatient (CLI) | payer MEDICARE, SELFPAY | END 2024-12-28 04:12 | disposition home or self-care (01) | LOC: AMB 12-29 01:55 | PROVIDERS: PCP Family Medicine; Visit Provider Emergency Medicine | DX: R53.1 Weakness (principal); R50.9 Fever, unspecified | CPT/HCPCS: A0425; A0427 ==

== ENCOUNTER 2024-12-28 04:43 | Inpatient (IN) | payer MEDICARE, SELFPAY ==
--- OUTSIDE RECORDS SUMMARY | 2024-11-16 07:30 | XMS_ITS | Encounter Summary ---
Author Organization [facility] Address [address] [place] [id number] Care Team Providers Care Door Closer Name Role Phone Clinic, Not Listed Unavailable Unavailable Bari Toscano MD Primary Care Provider America Lim PA-C Unavailable [phone] Encounter Details Date Type Department Care Team (Latest Contact Info) Description 11/16/2024 7:30 AM CDT Ancillary Procedure [facility] [address] [place] [address] Memory loss or impairment Social History Tobacco Use Types Packs/Day Years Used Date Smoking Tobacco: Former Cigarettes Smokeless Tobacco: Never Sex and Gender Information Value Date Recorded Sex Assigned at Not on file Legal Sex Male 9:56 AM CDT Gender Identity Not on file Sexual Orientation Not on file documented as of this encounter Plan of Treatment Not on file documented as of this encounter Procedures Procedure Name Priority Date/Time Associated Diagnosis Comments EEG AWAKE AND ASLEEP SLEEP DEPRIVED Routine 11/16/2024 8:22 AM CDT Memory loss or impairment documented in this encounter Results * EEG AWAKE AND ASLEEP SLEEP DEPRIVED (11/16/2024 8:22 AM CDT) Anatomical Region Laterality Modality Magnetic Resonan ce Narrative 11/17/2024 2:57 PM CDT Table formatting from the original result was not included. PATIENT NAME: Enrike Coleman LOCATION: [facility] TEST DATE: 11/16/2024 : 1940 TECH NAME: Antelmo AGE: 84 DURATION: 00:25:52 GENDER: REF. PHYSICIAN Male America Lim PA-C CC: N/A MEDICATIONS: Neurontin, Toprol REASON FOR REFERRAL: History of Memory loss or impairment. Technical details: Routine, surface electrode EEG, performed using 18 channels of digitally acquired EEG, with additional channels for EKG and eye leads. Standard international 10 - 20 system employed for electrode placement. Video monitoring was not performed. Special technical modifications: None. Duration of study: 25 min. Patient arousal states studied: Awake, resting, drowsy, asleep. Activation procedures performed: Photic stimulation, hyperventilation. Waveform Description: Predominant background during the record reveals generalized polymorphic delta and theta slowing, diffusely distributed and more prominent in anterior regions. There is an absence of the typical posterior dominant alpha rhythm. No unusual laterality, spike or sharp waves, or focal abnormalities are noted. Periods of hyperventilation did not significantly alter the recording. An analysis of waveforms during photic stimulation revealed no significant changes. Impression: This is an abnormal electroencephalogram characterized by generalized polymorphic delta and theta slowing. These findings are nonspecific but may reflect a diffuse cerebral dysfunction. The pattern is consistent with a multifactorial encephalopathic process or may be associated with generalized cerebral atrophy, particularly in the appropriate clinical context. No definite epileptiform discharges were observed. Javy Acosta MD Neurologist, [facility] 2:57 PM 11/17/2024 America Lim PA-C EEG ORDERABLE Final Res ult documented in this encounter Visit Diagnoses Diagnosis Memory loss or impairment Memory loss documented in this encounter Care Teams Door Closer Relationship Specialty Start Date End Date Clinic, Not Listed PCP - Primary Care Clinic 04/06/06 Bari Toscano MD [address] [place] [address] PCP - General Family Medicine 08/30/24 America Lim PA-C [address] [place] [address] [address] [place] [address] Neurology 08/30/24 documented as of this encounter
[2024-12-28] VITALS (24 sets, daily range): BP systolic 93–171; BP diastolic 49–111; PULSE 56–79; RESP 16–32; TEMP 36.2–38.3; O2SAT 80–96; BMI 28.4; BMI 30.1
--- OUTSIDE RECORDS SUMMARY | 2024-12-28 04:46 | XMS_ITS | Clinical Summary ---
Author Organization [facility] Address [address] [place] [address] Care Team Providers Care [employer] P8 Developer Name Role Phone Clinic, Not Listed Unavailable Unavailable Bari Toscano MD Primary Care Provider America Lim PA-C Unavailable [phone] Allergies No known active allergies Medications acetaminophen (TYLENOL) 325 mg oral tablet Take 2 tablets (650 mg) by mouth every 4 (four) hours as needed. 5 Active ELIQUIS 5 mg oral tablet Take 1 tablet (5 mg) by mouth twice a day. Active aspirin 81 mg oral enteric coated tablet Take 1 tablet (81 mg) by mouth Daily. 4 Active ciprofloxacin HCl (CIPRO) 500 mg oral tablet TAKE ONE TABLET BY MOUTH EVERY 12 HOURS FOR 5 DAYS 5 Active cyanocobalamin 1,000 mcg oral tablet Take 1 tablet (1,000 mcg) by mouth Daily. 5 Active empagliflozin (JARDIANCE) 10 mg oral tablet Take 5 mg by mouth Daily. 5 Active gabapentin (NEURONTIN) 300 mg oral capsule Take 1 capsule (300 mg) by mouth Daily. 5 Active glipiZIDE (GLUCOTROL XL) 10 mg oral extended release tablet 24 HR Take 1 tablet (10 mg) by mouth Daily. 5 Active metFORMIN ER (GLUCOPHAGE XR) 500 mg oral extended release tablet 24 HR Take 4 tablets (2,000 mg) by mouth Daily. 5 Active metoprolol succinate, XL, (TOPROL XL) 25 mg oral extended release tablet 24 HR Take 1 tablet (25 mg) by mouth Daily. 5 Active nitroGLYCERIN (NITROSTAT) 0.4 mg sublingual tablet Take 1 tablet (0.4 mg) under the tongue every 5 (five) minutes as needed. 4 Active rosuvastatin (CRESTOR) 20 mg oral tablet Take 1 tablet (20 mg) by mouth Daily. 5 Active predniSONE (DELTASONE) 1 mg oral tablet TAKE 9 TABLETS (9 MG) BY MOUTH DAILY FOR TWO WEEKS, THEN IF TOLERATED REDUCE BY 1 TABLET (1 MG) EVERY TWO WEEKS. 5 Active predniSONE (DELTASONE) 5 mg oral tablet Take 1 tablet (5 mg) by mouth Daily. 5 Active triamcinolone acetonide (KENALOG) 0.1 % Top ointment Apply to skin. 5 Active terbinafine HCL (LAMISIL) 1 % Top cream TERBINAFINE HCL 1 % CREA Active cholecalciferol , vitamin D3, 1,250 mcg (50,000 unit) oral TabIndications: Vitamin D deficiency Take 50,000 Units by mouth every 7 (seven) days for 12 doses. 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 [...] 02/11/24: recommended for consideration of surgical revascularization SOB (shortness of breath) 02/11/2024 Cervical spondylosis 01/10/2024 Neuropathy 01/10/2024 HFrEF (heart failure with reduced ejection fract ion) 12/30/2023 Leg weakness, bilateral 12/23/2023 Altered level of consciousness 03/26/2023 PMR (polymyalgia rheumatica) 03/03/2023 BPH without urinary obstruction 06/12/2022 Prostate cancer 06/12/2022 History of permanent cardiac pacemaker placement 03/27/2022 Mild cognitive impairment 03/19/2022 Atrial fibrillation 01/30/2022 Mobitz (type) I (Wenckebach's) atrioventricular block 01/30/2022 Memory loss 10/31/2021 Iron deficiency anemia 12/09/2020 Vitamin B12 deficiency 12/09/2020 Erectile dysfunction 06/10/2020 Overweight 06/10/2020 Benign essential HTN 02/16/2019 Type 2 diabetes mellitus without complication Degeneration of lumbar or lumbosacral interverte bral disc 02/18/2012 Displacement of lumbar inter vertebral disc without myelopathy 02/18/2012 Left lumbar radiculopathy 02/18/2012 Overview (10/20/2024): L3 nerve impingement Encounters Date Type Department Care Team Description 11/16/2024 7:30 AM CDT Ancillary Procedure [address] [place] [address] [id number] Memory loss or impairment 10/20/2024 Results Follow-Up [address] [place] [address] [phone] America Lim PA-C METHYLMALONIC ACID, SERUM ([facility]), TSH ([facility]), VITAMIN D, 25-HYDROXY ([facility]), Additional followed-up results: 5 10/09/2024 2:00 PM CDT Office Visit [email or web address] of Neurology - [address] [place] [address] America Lim PA-C Memory loss or impairment (Primary Dx); Vitamin D deficiency; Hypothyroidism, unspecified type from Last 3 Months Social History Tobacco Use Types Packs/Day Years Used Date Smoking Tobacco: Former Cigarettes Smokeless Tobacco: Never Tobacco Cessation:Counseling Given: Not Answered Sex and Gender Information Value Date Recorded Sex Assigned at Not on file Legal Sex Male 9:56 AM CDT Gender Identity Not on file Sexual Orientation Not on file Last Filed Vital Signs Vital Sign Reading Time Taken Comments Blood Pressure - - Pulse - - Temperature - - Respiratory Rate - - Oxygen Saturation - - Inhaled Oxygen Concentration - - Weight 87.5 kg (193 lb) 10/09/2024 1:42 PM CDT Height 175.3 cm (5' 9) 10/09/2024 1:42 PM CDT Body Mass Index 28.5 10/09/2024 1:42 PM CDT Plan of Treatment Health Maintenance Due Date Last Done Comments Eye Exam 1940 HgbA1C 1940 Yearly Review of HCD 02/21/1988 Creatinine 11/01/2015 10/31/2014 Influenza Vaccine (#1) 2024 4, 01/06/2023, 11/10/2021, Additional history exists Medicare Wellness Visit 06/02/2025 06/03/19 25, 06/09/2023, 06/12/2022, Additional history exists Adult Tetanus Booster 06/11/2030 06/11/2020 , 05/09/2010, 10/22/2006, Additional history exists Zoster Vaccine Completed 03/06/2019, 11/29, 11/17/2006 Pneumococcal 50+ Years Completed 3, 09/21/2014, 12/03/2005, Additional history exists RSV Vaccines Completed 01/19/2023 COVID-19 Vaccine Completed 06/02/2024, , 06/09/2023, Additional history exists Meningococcal B Vaccine Aged Out No l onger eligible based on patient's age to complete this topic Procedures Procedure Name Priority Date/Time Associated Diagnosis Comments EEG AWAKE AND ASLEEP SLEEP DEPRIVED Routine 11/16/2024 8:22 AM CDT Memory loss or impairment PHOSPHORYLATED TAU 217 (PTAU-217), PLASMA ([facility]) Routine 10/09/2024 1:20 PM CDT Memory loss or impairment APOE ALZHEIMER'S DISEASE RISK ([facility]) Routine 10/09/2024 1:20 PM CDT Memory loss or impairment ATN PROFILE ([facility]) Routine 10/09/2024 1:20 PM CDT Memory loss or impairment VITAMIN B12 ([facility]) Routine 10/09/2024 1:20 PM CDT Memory loss or impairment VITAMIN D, 25-HYDROXY ([facility]) Routine 10/09/2024 1:20 PM CDT Memory loss or impairment Vitamin D deficiency TSH ([facility]) Routine 10/09/2024 1:20 PM CDT Memory loss or impairment Hypothyroidism, unspecified type METHYLMALONIC ACID, SERUM ([facility]) Routine 10/09/2024 1:20 PM CDT Memory loss or impairment CREATININE EGFR Routine 10/31/2014 12:10 PM CDT from Last 3 Months or Most Recently Relevant to Health Maintenance Results * EEG AWAKE AND ASLEEP SLEEP DEPRIVED (11/16/2024 8:22 AM CDT) Anatomical Region Laterality Modality Magnetic Resonan ce Narrative 11/17/2024 2:57 PM CDT Table formatting from the original result was not included. PATIENT NAME: Mac Yarbrough LOCATION: [place] TEST DATE: 11/16/2024 : 1940 TECH NAME: [...] discharges were observed. Javy Acosta MD Neurologist, [facility] 2:57 PM 11/17/2024 us America Lim PA-C EEG ORDERABLE Final Res ult * (ABNORMAL) ATN PROFILE ([facility]) (10/09/2024 1:20 PM CDT) A -- Beta-amyloid 42/40 Ratio ([facility]) 0.085(L) >0.102 [facility] 1 Beta-amyloid 42 ([facility]) 18.30 pg/mL [facility] 1 Beta-amyloid 40 ([facility]) 216.27 pg/mL [facility] 1 T -- [id number] ([facility]) 0.92 0.00 - 0.97 pg/mL [facility] 1 N -- NfL, Plasma ([facility]) 12.50(H) 0.00 - 9.13 pg/mL [facility] 1 ATN SUMMARY [1] ([facility]) Comment [facility] Comment: A+ T- N+ A low beta-amyloid 42/40 ratio and a high NfL concentration were observed. A normal [id number] concentration was observed at this time. These results may be consistent with the presence of Alzheimer's- related pathology and concomitant suspected non-AD pathological change. Plasma findings may be less precise than CSF or PET. Additional assessment may be necessary. These tests are intended to be used only in the context of clinical care. Information: ([facility]) Comment [facility] 1 Comment: Beta-amyloid 42 and Beta-amyloid 40: Plasma beta-amyloid 1-42/1-40 ratios less than or equal to 0.102 suggest a higher probability of a patient being clinically diagnosed with Alzheimer's Disease (AD), while values above 0.102 suggest a lower probability of AD diagnosis. Precise plasma testing of Beta-amyloid 42 and Beta-amyloid 40 has demonstrated comparable effectiveness to traditional cerebrospinal fluid testing and amyloid positron emission tomography (PET) scans. When assessing the risk of AD pathology as the underlying cause for mild cognitive impairment (MCI) or dementia, it is important to consider various factors such as medical and family history, nutritional deficiency biomarkers, neuroimaging, and physical, neurological, and neuropsychological examinations. These tests were developed and their performance characteristics determined by [facility]. They have not been cleared or approved by the Food and Drug Administration. * METHODOLOGY: Beta-amyloid 42/40 Ratio: [employer] Chemiluminescence Enzyme Immunoassay (CLEIA) NfL and [id number]: Tests performed by [facility] Electrochemiluminescence Immunoassay (ECLIA). Values obtained with different methods cannot be used interchangeable. These tests were developed and their performance characteristics determined by [facility]. They have not been cleared or approved by the Food and Drug Administration. * [id number] INFORMATION: For individual 0-55 years of age: 0.00-0.95 pg/mL Reference interval is based on a population of ostensibly healthy individuals aged 20 to 55 years For individual greater than 55 years of age: 0.00-0.97 pg/mL Results greater than the clinical cut-off of 0.97 pg/mL in patients greater than 55 years of age are correlated with Abeta amyloid pathology as determined by amyloid PET imaging. * 1. Interpretation comments are based on a consensus between National [place] for Age and the Internation Working Group recommendations for ATN panel interpretation published by Madhu et al 2018 and updated in Ingrid et al 2020. * Ingrid H, Yessy J, Abran Davey, Rickie P, Madhu FENTON Jr, Shailesh Ramírez. Developing the ATX(N) classification for use across the Alzheimer disease continiuum. Olga Rev Neurol. 2020 Sep;17(9):580-589. Madhu FENTON Jr, Hernandez BOWEN, Abran Davey, et al. A/T/N: An unbiased descriptive classification scheme for Alzheimer disease biomarkers. Neurology. 2016 Sep 2;87(5):539-547. Blood 10/09/2024 1:20 PM CDT 10/09/2024 11:00 PM CDT Narrative [facility] 1 - 10/20/2024 11:09 AM CDT Performed at: [facility] [id number] Denture Technician: Kim Jim MD, Phone: [phone] America Lim PA-C [facility] ORDERABLES Final Result [facility] 1 * (ABNORMAL) PHOSPHORYLATED TAU 217 (PTAU-217), PLASMA ([facility]) (10/09/2024 1:20 PM CDT) [id number] ([facility]) 0.25(H) 0.00 - 0.18 pg/mL [facility] 3 Comment: Clinical cutoff value was established using samples from a patient cohort characterized with amyloid PET data. A p-xvt160 value of >0.18 is a reported surrogate marker for beta amyloid pathology, and can be used to facilitate biological identification of Alzheimer's disease (1). p-zsj930 has also been used in clinical trials to monitor patients on anti-amyloid therapy (2,3). Test performed by [employer] chemiluminescent enzyme immunoassay (CLEIA). Values obtained with different methods cannot be used interchangeably. The validated limit of quantification is 0.06 pg/mL. Assay detection limit is 0.03 pg/mL. Footnotes ([facility]) Comment [facility] 3 Comment: 1. Mele Prater, et al. Diagnostic Accuracy of a Plasma Phosphorylated Tau 217 Immunoassay for Alzheimer Disease Pathology. KAMILA neurology (2023). 2. Mele Prater et al. Differential roles of A42/40, p-byl775 and p-stg711 for Alzheimer's trial selection and disease monitoring. Nature medicine 28.12 (2021): 6057-7075. 3. Sridevi GREY, Ruth M, Sindhu SC, et al. Association of Donanemab Treatment With Exploratory Plasma Biomarkers in Early Symptomatic Alzheimer Disease: A Secondary Analysis of the TRAILBLAZER-ALZ Randomized Clinical Trial. KMAILA Neurol. 2021;79(12):3474-6942. Blood 10/09/2024 1:20 PM CDT 10/09/2024 11:00 PM CDT Narrative [facility] 3 - 10/20/2024 11:09 AM CDT Test(s) [id number] was developed and its performance characteristics determined by [facility]. It has not been cleared or approved by the Food and Drug Administration. Performed at: 03 - [facility] [address] [place] [id number] Denture Technician: Tessa Morales MD, Phone: [phone] America Lim PA-C [facility] ORDERABLES Final Result [facility] 3 * METHYLMALONIC ACID, SERUM ([facility]) (10/09/2024 1:20 PM CDT) Methylmalonic Acid ([facility]) 109 0 - 378 nmol/L [facility] 1 Blood 10/09/2024 1:20 PM CDT 10/09/2024 11:00 PM CDT Narrative [facility] 1 - 10/20/2024 11:09 AM CDT Test(s) [id number] Acid, Serum was developed and its performance characteristics determined by [facility]. It has not been cleared or approved by the Food and Drug Administration. Performed at: 01 - [facility] [address] [id number] Denture Technician: Kim Jim MD, Phone: [phone] America Lim PA-C [facility] ORDERABLES Final Result Performing Organization Address [facility] Co de Phone Number [facility] 1 * (ABNORMAL) VITAMIN D, 25-HYDROXY ([facility]) (10/09/2024 1:20 PM CDT) Vitamin D,25 Hydroxy ([facility]) 20.8(L) 30.0 - 100.0 ng/mL [facility] 4 Comment: Vitamin D deficiency has been defined by the [place] of Medicine and an Endocrine Society practice guideline as a level of serum 25-OH vitamin D less than 20 ng/mL (1,2). The Endocrine Society went on to further define vitamin D insufficiency as a level between 21 and 29 ng/mL (2). 1. IOM ([place] of Medicine). 2010. Dietary reference intakes for calcium and D. [place]: The National Academies Press. 2. Elroy MF, Hilario JOHNSON, Tracie CASH, et al. Evaluation, treatment, and prevention of vitamin D deficiency: an Endocrine Society clinical practice guideline. JCEM. 2010; 96(7):1911-30. Blood 10/09/2024 1:20 PM CDT 10/09/2024 11:00 PM CDT Narrative [facility] 4 - 10/20/2024 11:09 AM CDT Performed at: [facility] [address] [id number] Denture Technician: Angel Rodriguez MD, Phone: [phone] us America Lim PA-C [facility] ORDERABLES Final Result Performing Organization Address [facility]/ZIP Co de Phone Number [facility] 4 * TSH ([facility]) (10/09/2024 1:20 PM CDT) TSH ([facility]) 1.040 0.450 - 4.500 uIU/mL [facility] 4 Blood 10/09/2024 1:20 PM CDT 10/09/2024 11:00 PM CDT Narrative [facility] 4 - 10/20/2024 11:09 AM CDT Performed at: [address] [place] [id number] Denture Technician: Angel Rodriguez MD, Phone: [phone] America Lim PA-C [facility] ORDERABLES Final Result Performing Organization Address [facility] Co de Phone Number [facility] 4 * VITAMIN B12 ([facility]) (10/09/2024 1:20 PM CDT) Pathologist [facility] Vitamin B12 ([facility]) 924 232 - 1,245 pg/mL [facility] 4 Blood 10/09/2024 1:20 PM CDT 10/09/2024 11:00 PM CDT Narrative [facility] 4 - 10/20/2024 11:09 AM CDT Performed at: [address] [place] [id number] Denture Technician: Angel Rodriguez MD, Phone: [phone] America Lim PA-C [facility] ORDERABLES Final Result Performing Organization Address [facility] de Phone Number [facility] 4 * APOE ALZHEIMER'S RISK ([facility]) (10/09/2024 1:20 PM CDT) Pathologist [facility] Method APOE ([facility]) Comment [facility] 2 Comment: Patient DNA is assayed for the APOE genotype by PCR amplification of a specific region in exon 4 of the APOE gene followed by digestion with restriction enzyme Air Saw Operator I and separation of fragments by polyacrylamide gel electrophoresis. This approach allows the APOE E2, E3, and E4 alleles to be distinguished. Analytical sensitivity and specificity are >99.5%. Individuals are interpreted as having one of the following genotypes: E2/E2, E3/E3, E4/E4, E2/E3, E2/E4, E3/E4. APO E Genotype Result ([facility]) E3/E3 [facility] 2 Interpretation APOE ([facility]) Comment [facility] 2 Comment: Negative for the APOE4 variant that is associated with increased risk for late onset Alzheimer's disease (AD). E3/E3 is the most common APOE genotype and is not associated with increased risk for AD. RECOMMENDATIONS Genetic counseling is recommended. Due to the lack of measures to prevent the development of AD, the ACMG/NSGC guidelines do not recommend presymptomatic testing, but if it is performed, guidelines are provided (Kaushik GILLESPIE et al. 2011). The APOE Genotyping: Alzheimer's Risk test is not recommended for children. NOTE: This is not a diagnostic test. Results should be interpreted along with clinical findings and other data. This test evaluates only for the APOE genotype and cannot detect genetic abnormalities elsewhere in the genome. It should be realized that there are possible sources of error including sample misidentification, rare technical errors, trace contamination of PCR reactions, and rare genetic variants that may interfere with analysis. For inquiries or genetic consultation, please call [facility] at . Comment APOE ([facility]) Comment [facility] 2 Comment: INFORMATION ABOUT THE APOE GENOTYPE AND ALZHEIMER'S DISEASE Alzheimer's disease (AD) is the most common form of dementia in the elderly and currently affects more than 5 million Americans. It is a progressive neurodegenerative disorder with brain findings of plaques and neurofibrillary tangles containing beta-amyloid and tau protein respectively. The predominant form of AD is late onset (age > 60-65), which can be familial (15-20%) or sporadic. The APOE4 variant increases the risk for late onset AD and may contribute to the pathology of the disease. This risk is increased by approximately 2 to 3-fold for individuals with one copy of the APOE4 variant and by approximately 10 [id number] for individuals with two copies of this variant (E4/E4 genotype). The APOE2 variant has some protective effect against development of late onset AD. The lifetime risk for late onset AD is approximately 10-12% in the general population, though it is higher in women than men and doubles when there is a first degree relative with this disorder. The lifetime risk is approximately 9% for individuals negative for APOE4, and for individuals with E4/E4 may be as high as 25% for males and 45% for females. Among patients with late onset AD, the presence of APOE4 may lead to earlier development of symptoms. However, APOE4 is neither necessary nor sufficient for the development of AD. Approximately 30-50% of patients with late onset AD do not have an APOE4 allele. APOE4 is common, with 25% of the general population having one copy and 1% having two copies of this variant. Among patients with late onset AD, 50-70% are positive for APOE4. The development of late onset AD is influenced by many factors other than APOE4 including age, gender, family history, level of education and history of head trauma. Midlife cardiovascular risk factors in individuals with APOE4 also increase risk for cognitive decline. A number of genetic influences in addition to APOE4 have also been reported and are under investigation. This test was developed and its performance characteristics determined by [facility]. It has not been cleared or approved by the Food and Drug Administration. The FDA has determined that such clearance or approval is not necessary. REFERENCES Pricilla Ramírez et al. Sex modifies the APOE-related risk of developing Alzheimer disease. Annal Neurol 2014;75(4):563-573 Osiel DE LA GARZA. Alzheimer Disease Overview. [employer] ([employer]). Emma THOMPSON et al., editors. [facility]: [facility], [place], [place]. Last revised 2014. Kaushik JS et al. Genetic counseling and testing for Alzheimer disease: Joint practice guidelines of the [place] College of Medical Genetics and the National Society of Genetic Counselors. [place] in Med 2011;136597-605. Twan CABA. Apolipoprotein E: Implications for AD neurobiology, epidemiology and risk assessment. Neurobiology of Aging 2011;32:778-790 Blood 10/09/2024 1:20 PM CDT 10/09/2024 11:00 PM CDT Narrative [facility] 2 - 10/20/2024 11:09 AM CDT Performed at: [facility] [employer] [address] [id number] Denture Technician: Jovi Daniel MD, Phone: [phone] us America Lim PA-C [facility] ORDERABLES Final Result [facility] 2 * CREATININE EGFR (10/31/2014 12:10 PM CDT) Creatinine 1.01 0.70 - 1.30 mg/dL 10/31/2014 12:46 PM CDT [facility] Est GFR (CKD-EPI) >60 >60 mL/min 10/31/2014 12:46 PM CDT [facility] EST GFR IF AM >60 >60 mL/min 10/31/2014 12:46 PM CDT [facility] Blood 10/31/2014 12:1 0 PM CDT 10/31/2014 12:15 PM CDT us Ericstephen Altamirano MD CHEMISTRY ORDERABLE Final R esult Performing Organization Address City/State/[facility] Co de Phone Number [facility] [address] [facility] [place] [address] from Last 3 Months or Most Recently Relevant to Health Maintenance Insurance MEDICARE PART A & B [facility] [employer] [facility] MEDICARE ADVANTAGE Care Teams [employer] P8 Developer Relationship Specialty Start Date End Date Clinic, Not Listed PCP - Primary Care Clinic 04/06/06 Bari Toscano MD [facility] [place] [address] PCP - General Family Medicine 08/30/24 America Lim PA-C [address] [facility] [address] [place] [address] Neurology 08/30/24
--- OUTSIDE RECORDS SUMMARY | 2024-12-28 04:46 | XMS_ITS | Clinical Summary ---
Author Organization [facility] Address [address] , [address] [place] [address] Phone Care Team Providers Care Sounding Device Operator Name Role Phone MedRec, MedRec Unavailable Conditions or Problems Problem Name Problem Code Onset Date Status Entry Date Provider Comment Standard Description Annotate Leg weakness, bilateral 419343490 (SNOMED CT) Active Marco Antonio Alicea MD Paresis of lower extremity Peripheral polyneuropathy 667918962 (SNOMED CT) Active Marco Antonio Alicea MD Peripheral nerve disease Nonspecific paroxysmal spell 0938904 (SNOMED CT) 03/26 Active 03/26 Marco Antonio Alicea MD Disturbance of consciousness Mild cognitive impairment 212845324 (SNOMED CT) 03/19 Active 03/19 Marco Antonio Alicea MD Mild neurocognitive disorder Memory loss 13315153 (SNOMED CT) 10/31 Active 10/31 Marco Antonio Alicea MD Amnesia Medications Medication Instructions Start Date Stop Date Generic Name [facility] Provider METFORMIN HCL ER 500 MG [id number] 04/28 metformin (glucophage xr) 10851145810 Marco Antonio Alicea MD SODIUM CHLORIDE 0.9 % SOLN 04/28 sodium chloride [id number] Marco Antonio Alicea MD GABAPENTIN 300 MG CAPS TAKE 1 CAPSULE (300 MG) BY MOUTH AT BEDTIME. 04/28 gabapentin [id number] Marco Antonio Alicea MD ELIQUIS 5 MG TABS TAKE 1 TABLET (5 MG) BY MOUTH TWO TIMES DAILY. 04/28 apixaban [id number] Marco Antonio Alicea MD LISINOPRIL-HYDRO CHLOROTHIAZIDE 20-25 MG TABS 04/28 lisinopril-hydr ochlorothiazide [id number] Marco Antonio Alicea MD TRUE METRIX BLOOD GLUCOSE TEST STRP TEST 2 TIMES PER WEEK. 04/28 blood sugar diagnostic [id number] Marco Antonio Alicea MD TROSPIUM CHLORIDE 20 MG TABS TAKE ONE TABLET BY MOUTH DAILY 04/28 trospium [id number] Marco Antonio Alicea MD GLIPIZIDE ER 2.5 MG [id number] 04/28 glipizide [id number] Marco Antonio Alicea MD PREDNISONE 10 MG TABS TAKE 1-2 TABLETS (10-20 MG) BY MOUTH ONCE DAILY WITH A MEAL. DIRECTED 04/28 prednisone [id number] Marco Antonio Alicea MD TAMSULOSIN HCL 0.4 MG CAPS TAKE 1 CAPSULE (0.4 MG) BY MOUTH ONCE DAILY AFTER A MEAL. 04/28 tamsulosin [id number] Marco Antonio Alicea MD ENTRESTO 24-26 MG TABS TAKE 1 TABLET BY MOUTH TWO TIMES DAILY. sacubitril-vals karin [id number] Marco Antonio Alicea MD VITAMIN B-12 1,000 MCG TAB 1000 TAKE 1 TABLET (1,000 MCG) BY MOUTH ONCE DAILY. VITAMIN B-12 1,000 MCG TAB 1000 Marco Antonio Alicea MD JARDIANCE 10 MG TABS TAKE 1 TABLET (10 MG) BY MOUTH ONCE DAILY. empagliflozin [id number] Marco Antonio Alicea MD ELIQUIS 5 MG TABS TAKE 1 TABLET (5 MG) BY MOUTH TWO TIMES DAILY. apixaban [id number] Marco Antonio Alicea MD TROSPIUM CHLORIDE 20 MG TABS TAKE ONE TABLET BY MOUTH DAILY trospium [id number] Marco Antonio Alicea MD FUROSEMIDE 20 MG TABS TAKE 1 TABLET (20 MG) BY MOUTH ONCE DAILY IN THE MORNING. furosemide [id number] Marco Antonio Alicea MD ROSUVASTATIN CALCIUM 20 MG TABS TAKE 1 TABLET (20 MG) BY MOUTH AT BEDTIME. rosuvastatin [id number] Marco Antonio Alicea MD METOPROLOL SUCCINATE ER 25 MG [id number] TAKE 1 TABLET (25 MG) BY MOUTH ONCE DAILY. metoprolol succinate [id number] Marco Antonio Alicea MD TAMSULOSIN HCL 0.4 MG CAPS TAKE 1 CAPSULE (0.4 MG) BY MOUTH ONCE DAILY AFTER A MEAL. tamsulosin [id number] Marco Antonio Alicea MD ISOSORBIDE MONONITRATE ER 30 MG [id number] TAKE 1 TABLET (30 MG) BY MOUTH ONCE DAILY. isosorbide mononitrate [id number] Marco Antonio Alicea MD METFORMIN HCL ER 500 MG [id number] TAKE 4 TABLETS (2,000 MG) BY MOUTH ONCE DAILY WITH EVENING MEAL. metformin (glucophage xr) [id number] Marco Antonio Alicea MD NITROGLYCERIN 0.[address] 1 TABLET (0.4 MG) UNDER THE TONGUE EVERY 5 MINUTES IF NEEDED FOR CHEST PAIN. UP TO 3 TABLETS IN 15 MINUTES. nitroglycerin [id number] Marco Antonio Alicea MD GABAPENTIN 300 MG CAPS TAKE 1 CAPSULE (300 MG) BY MOUTH AT BEDTIME. gabapentin [id number] Marco Antonio Alicea MD POTASSIUM CHLORIDE GEM ER 20 MEQ CR-TABS TAKE 1 TABLET (20 MEQ) BY MOUTH ONCE DAILY. potassium chloride [id number] Marco Antonio Alicea MD TERBINAFINE HCL 1 % CREA APPLY TOPICALLY TO AFFECTED AREA(S) TWO TIMES DAILY. terbinafine hcl [id number] Marco Antonio Alicea MD TERBINAFINE HCL 250 MG TABS TAKE 1 TABLET (250 MG) BY MOUTH ONCE DAILY. terbinafine hcl [id number] Marco Antonio Alicea MD GLIPIZIDE ER 10 MG [id number] TAKE 2 TABLETS (20 MG) BY MOUTH ONCE DAILY BEFORE A MEAL. glipizide [id number] Marco Antonio lAicea MD PREDNISONE 20 MG TABS TAKE 1 TABLET (20 MG) BY MOUTH ONCE DAILY WITH A MEAL. 09/20 prednisone [id number] Yue Schulte PA-C TROSPIUM CHLORIDE 20 MG TABS TAKE ONE TABLET BY MOUTH DAILY 04/28 trospium [id number] uYe Garciail PA-C PREDNISONE 10 MG TABS TAKE 1-2 TABLETS (10-20 MG) BY MOUTH ONCE DAILY WITH A MEAL. DIRECTED 04/28 prednisone [id number] Yue Schulte PA-C GABAPENTIN 300 MG CAPS TAKE 1 CAPSULE (300 MG) BY MOUTH AT BEDTIME. 09/08 gabapentin [id number] Yue GIL-C ID NOW COVID-19 KIT TEST DIRECTED TODAY 09/17 covid-19 molecular test assay [id number] Yue Schulte PA-C PREDNISONE 20 MG TABS TAKE 1 TABLET (20 MG) BY MOUTH ONCE DAILY WITH A MEAL. 09/20 prednisone [id number] Yue Schulte PA-C ELIQUIS 5 MG TABS TAKE 1 TABLET (5 MG) BY MOUTH TWO TIMES DAILY. 04/28 apixaban [id number] Yue Garciail PA-C TAMSULOSIN HCL 0.4 MG CAPS TAKE 1 CAPSULE (0.4 MG) BY MOUTH ONCE DAILY AFTER A MEAL. 04/28 tamsulosin [id number] Yue Garciail PA-C ID NOW COVID-19 KIT TEST DIRECTED TODAY 09/17 covid-19 molecular test assay [id number] Marco Antonio Alicea MD TRUE METRIX BLOOD GLUCOSE TEST STRP TEST 2 TIMES PER WEEK. 04/28 blood sugar diagnostic [id number] Marco Antonio Alicea MD LISINOPRIL-HYDRO CHLOROTHIAZIDE 20-25 MG TABS 04/28 lisinopril-hydr ochlorothiazide [id number] Marco Antonio Alicea MD METFORMIN HCL ER 500 MG [id number] 04/28 metformin [id number] Marco Antonio Alicea MD GLIPIZIDE ER 2.5 MG [id number] 09/08 glipizide [id number] Marco Antonio Alicea MD SODIUM CHLORIDE 0.9 % SOLN 04/28 sodium chloride [id number] Marco Antonio Alicea MD Medications Administered No [...] and results reviewed. Total score [M MSE] [id number] Normal Total scor e [MoCA] MMSE SCORE [...] Yes Consent To Release information to the Dealer [employer] ([employer]) Plan of Care Type Date Detail Pending order Follow up ABBY Pending order Follow up ABBY Pending Order exclud ed from report: Pending order Patient Instruct ions Pending order Follow up Pending order Follow up ABYB Pending order Patient Instruct ions Pending order Patient Instruct ions Pending order Follow up Pending order Patient Instruct ions Pending order Follow up ABBY in clinic or telemedicine Pending order Patient Instruct ions Pending order Follow up teleme dicine Pending order Neuropsychology Evaluation Procedures Code Procedure Name Date Entry Date ORDERS Follow up ABBY ORDERS Patient Instructions [facility]-[id number] Documentation of current medicatio ns ORDERS Follow up CPT-12548 Nerve Conduction 11-12 studies CPT-42451 EMG with NCS (5+ muscles) - 2 limbs 12/22 ORDERS Patient Instructions LOINC 92252-5 MMSE ORDERS Follow up ABBY ORDERS Patient Instructions ORDERS Follow up [facility]-[id number] Documentation of current medicatio ns ORDERS Patient Instructions ORDERS Follow up ABBY in clinic or telemedicine 2 LOINC 19713-3 MMSE ORDERS Patient Instructions ORDERS Follow up telemedicine 10/[address] [facility]-[id number] Documentation of current medicatio ns ORDERS Neuropsychology Evaluation [address] [facility]-[id number] Documentation of current medicatio ns LOINC 13840-8 MMSE Vital Signs No information available. Immunizations No information available. Advance Directives No information available.
--- OUTSIDE RECORDS SUMMARY | 2024-12-28 04:46 | XMS_ITS | Continuity of Care Document ---
Author Organization [place] - [facility] Address [address] [place] [address] Care Team Providers Care Gas Charger Name Role Phone LINDSAY SANFORD Referring Provider [phone] Assessment No assessment recorded. Plan of Treatment Reminders Order Date Submit Date Provider Last Modified By Organization Details Last Modified Time Details Appointments PSA 10 2025 01:30P M [facility] Not available Not available Not available ESTABL ISHED 10 2025 01:50P M Louis Cook MD Not available Not available Not available Lab PSA, serum or plasma 2024 025 [email or web address] [facility], [address], [place], [address], 12/05/2024 12:15:11 PSA, total, serum or plasma [email or web address] [place] [address] Lab, [address] [place], [address], 12/05/2024 13:23:25 Referral None record ed. Procedures None record ed. Surgeries None record ed. Imaging CT, urogra m - PLEASE CALL PT TO SCHEDU LE 2024 025 [facility], [address] [place], [address], 12/13/2024 11:02:23 Medication Orders tadala maureen 5 mg tablet 2024 025 [facility], [address] [place] [address], [address], 12/05/2024 14:50:32 Patient TargetsNo targets recorded. Patient InstructionsNo instructions recorded. Reason for Referral None Reported. Results Created Date Observation Date Name Description Value Unit Range Abnormal Flag Note LastModifiedBy Organization Detail LastModifiedTime 11/11/1911/10/2024 URINE CULTU RE final report MICROB IOLOGY RESULT S SOURC E Void KNOWN ALLER GIES NKDA TREAT MENT n/a MEDIA PLATE D AT: Media plate d on 2024 @ 4:51 PM RESUL T Mixed Growt h, Multi ple Morph ologi c Types , No Furth er [place] p This lab resul t is being provi ded to you and your provi gricelda at the same time in compl iance with the Centu ry Cures Act. Your provi gricelda may not have had time to revie w and make recom menda tions based on the resul t. Pleas e allow up to one week for provi gricelda revie w. Not Available [facility] [address], [place], [address], 11/11/2024 10:45:08 11/11/1911/10/2024 urina lysis , dipst ick BLOOD Large (250 RBC/uL ) Not Available [facility] [address], [place], [address], 11/10/2024 11:17:20 11/11/1911/10/2024 urina lysis , dipst ick NITRITES Negati ve Not Available [facility] [address], [place], [address], 11/10/2024 11:17:20 11/11/1911/10/2024 urina lysis , dipst ick LEUKOCYTES Small (25 WBC/uL ) Not Available [facility] [address], [place], [address], 11/10/2024 11:17:20 12/06/19 25 12/05/2024 PSA, serum or plasm a PSA 13.7ng /mL 0-4.0 NG/mL Not Available [facility] [address], [place], [address], 11/22/2024 15:45:12 12/14/19 25 12/12/2024 CT, urogr am No observ ation record ed. [facility] [address], [place], [address], 12/18/2024 14:28:50 Result Notes None recorded. Procedures Surgical History Date Name Laterality Status Provider Name and Address Organization Details Recorded Time 5 Cystoscopy- male completed Louis Cook MD [address] [facility],[address], [place], [address], [facility] 12/26/2024 19:09:00 5 Keflex post Cysto completed Carlos Enrique falcon [facility] 12/26/2024 13:31:05 5 Urinalysis completed Carlos Enrique falcon [facility] 12/26/2024 13:30:59 5 EDUCATIONAL PARAPROFESSIONAL/blood draw completed Carlos Enrique falcon [facility] 12/05/2024 12:14:49 5 Bladder Scan completed Louis Cook MD [address] [place] [address],[address], [place], [address], [facility] 12/05/2024 12:32:40 5 Urine Culture completed Meli Rowan [facility] 11/10/2024 11:16:59 5 Urinalysis completed Meli Rowan [facility] 11/10/2024 11:16:57 5 Urine Culture completed Anastasiia Ingram [facility] 09/25/2024 12:27:34 5 Urinalysis completed Anastasiia Ingram [facility] 09/25/2024 11:46:34 5 Bladder Scan completed Anastasiia Ingram [facility] 09/25/2024 11:46:26 5 Blood Draw/EDUCATIONAL PARAPROFESSIONAL/PSA RESULTS completed Lousi Cook MD [address] [place] [address],[place] [address], [place], [address], [facility] 05/30/2024 12:41:37 4 Blood Draw/EDUCATIONAL PARAPROFESSIONAL/PSA RESULTS completed Carlos Enrique falcon [facility] 10/11/2023 10:18:27 3 Heart Surgery completed Louis Cook MD [address] [place] [address],[facility] [address], [place], [address], [facility] 09/28/2022 16:37:35 procedure on spine completed Louis Cook MD [address] [place] [address],[address], [address], [facility] 09/28/2022 16:37:23 Imaging Results None recorded. Procedure Notes None recorded. Medical Equipment None Reported. Allergies No known drug allergies Medications Name Sig Start Date Stop Date Status Note LastModified by Organization Details LastModified Time vitamin b-12 1,000 mcg tab TAKE 1 TABLET (1,000 MCG) BY MOUTH ONCE DAILY. active Not Available Not Available No t Available terbinafine HCl 1 % topical cream APPLY TOPICALLY TO AFFECTED AREA(S) TWO TIMES DAILY. 12/05 completed Not Available Not Available Not Available prednisone 10 mg tablet TAKE ONE [...] Available Not Available prednisone 5 mg tablet Take 1 tablet every day by oral route. active Not [...] Available Not Available Not Available ciprofloxac in 500 mg tablet Take 1 tablet every 12 hours by oral route for 5 days. 10/14 completed Not Available Not Available Not Available triamcinolo ne acetonide 0.1 % topical cream APPLY TOPICALLY TO AFFECTED AREA(S) THREE TIMES DAILY. active Not Available Not Available No t Available terbinafine HCl 250 mg tablet TAKE 1 TABLET (250 MG) BY MOUTH ONCE DAILY. 12/05 completed Not Available Not Available Not Available potassium chloride ER 20 mEq tablet,exte nded release(par t/cryst) TAKE 1 TABLET (20 MEQ) BY MOUTH ONCE DAILY. 09/25 completed Not Available Not Available Not Available tamsulosin 0.4 mg capsule TAKE 1 CAPSULE (0.4 MG) BY MOUTH ONCE DAILY AFTER A MEAL. 09/25 completed Not Available Not Available Not Available glipizide ER 2.5 mg tablet, extended [...] Not Available Not Available No t Available tadalafil 5 mg tablet Take 1 tablet every day by oral route. 2024 active Not Available Not Available Not Avai lable trospium 20 mg tablet TAKE 1 TABLET BY MOUTH DAILY. 12/05 completed Not Available Not Available Not Available [...] 1 TABLET BY MOUTH TWO TIMES DAILY. 12/05 completed Not Available Not Available Not Available aspirin 81 mg capsule Take 1 [...] and Address Organization Details Last Updated DateTime 12/05/2024 175.26 cm 31 kg/m2 48669.4 g Louis Cook MD [address] [place] [address],[address], [address] 12/05/2024 12:32:21 Social History Question Answer Notes LastModified by Organizat [employer] Details LastModified Time Tobacco Smoking Status Former Smoker Louis Cook MD [address] [place] [address],[address], [address], [facility] 09/28/2022 16:37:00 What Is Your Level Of Caffeine Consumption? Moderate Information not available 09/28/2022 When Did You Quit Smoking? 16+yearssince lastcigarette Information not available 09/28/2022 What Was The Date Of Your Most Recent Tobacco Screening? 09/25/2024 [email or web address] Information not available 09/25/2024 Have You Ever Been Counseled For Unhealthy Alcohol Use? No Information not available 04/26/2023 Has Tobacco Cessation Counseling Been Provided? No Information not available 04/26/2023 How Many Days In The Past Year Have You Consumed 5 Or More Drinks? 0 Information not available 04/26/2023 Sex: Male Functional Status Question Answer Note LastModified by Organizat ion Details LastModified Time How many times per week do you consume alcohol? 5-7 times per week Information not available 09/28/2022 Do you use any illicit or recreational drugs? No Information not available 04/26/2023 What is your level of alcohol consumption? Moderate Information not available 09/28/2022 Mental Status None recorded. Family History Relationship [...] quadrivalent, PF 3 completed Louis Cook MD [address] [place] [address],[address], [address], [facility] 04/26/2023 10:59:30 RSV, recombinant, protein subunit RSVpreF, adjuvant reconstituted, 0.5 mL, PF 3 completed Louis Cook MD [address] [place] [address],[place] [address], [place], [address], [facility] 04/26/2023 10:59:31 COVID-19, mRNA, LNP-S, PF, 50 mcg/0.5 mL 3 completed Louis Cook MD [address] [place] [address],[place] [address], [place], [address], [facility] 04/26/2023 10:59:31 COVID-19, mRNA, LNP-S, PF, 50 mcg/0.5 mL 4 completed Not Available [facility] 12/26/2024 13:30:47 COVID-19, mRNA, LNP-S, PF, 50 mcg/0.5 mL 4 completed Not Available [facility] 12/26/2024 13:30:47 Influenza, adjuvanted, trivalent, PF 4 completed Not Available [facility] 12/26/2024 13:30:47 COVID-19, mRNA, LNP-S, PF, 50 mcg/0.5 mL 5 completed Not Available [facility] 12/26/2024 13:30:47 IPV 2 completed Susana watson, [facility] 01/25/2023 09:28:19 Influenza, adjuvanted, trivalent, PF 7 completed Susana watson, [facility] 01/25/2023 09:28:19 Influenza, adjuvanted, trivalent, PF 9 completed Susana Allar null, [facility] 01/25/2023 09:28:19 Influenza, adjuvanted, trivalent, PF 8 completed Susana Allar null, [facility] 01/25/2023 09:28:19 zoster recombinant 0 completed Susana Allar null, [facility] 01/25/2023 09:28:19 zoster recombinant 9 completed Susana Allar null, [facility] 01/25/2023 09:28:19 Influenza, adjuvanted, quadrivalent, PF 0 completed Susana Allar null, [facility] 01/25/2023 09:28:19 Influenza, adjuvanted, quadrivalent, PF 2 completed Susana Allar null, [facility] 01/25/2023 09:28:19 Influenza, adjuvanted, quadrivalent, PF 1 completed Susana Allar null, [facility] 01/25/2023 09:28:19 COVID-19, mRNA, LNP-S, PF, 100 mcg/0.5mL dose or 50 mcg/0.25mL dose 1 completed Susana Allar null, [facility] 01/25/2023 09:28:19 COVID-19, mRNA, LNP-S, PF, 100 mcg/0.5mL dose or 50 mcg/0.25mL dose 1 completed Susana Allar null, [facility] 01/25/2023 09:28:19 COVID-19, mRNA, LNP-S, PF, 100 mcg/0.5mL dose or 50 mcg/0.25mL dose 1 completed Susana Allar null, [facility] 01/25/2023 09:28:19 Pneumococcal conjugate PCV20, polysaccharide ONV940 conjugate, adjuvant, PF 3 completed Susana Allar null, [facility] 01/25/2023 09:28:19 COVID-19, mRNA, LNP-S, PF, 30 mcg/0.3 mL dose, octavia-sucrose 2 completed Susana Allar null, [facility] 01/25/2023 09:28:19 COVID-19, mRNA, LNP-S, bivalent, PF, 50 mcg/0.5 mL or 25mcg/0.25 mL dose 3 completed Susana Allar null, [facility] 01/25/2023 09:28:19 COVID-19, mRNA, LNP-S, bivalent, PF, 50 mcg/0.5 mL or 25mcg/0.25 mL dose 2 completed Susana Allar null, [facility] 01/25/2023 09:28:19 pneumococcal polysaccharide PPV23 6 completed Susana Allar null, [facility] 01/25/2023 09:28:19 pneumococcal polysaccharide PPV23 6 completed Susana Allar null, [facility] 01/25/2023 09:28:19 Tdap 1 completed Susana Allar null, [facility] 01/25/2023 09:28:19 Tdap 1 completed Susana Allar null, [facility] 01/25/2023 09:28:19 Pneumococcal conjugate PCV 13 5 completed Susana Allar null, [facility] 01/25/2023 09:28:19 yellow fever live 2 completed Susana Allar null, [facility] 01/25/2023 09:28:19 yellow fever live 1 completed Susana Allar null, [facility] 01/25/2023 09:28:19 zoster live 7 completed Susana Allar null, [facility] 01/25/2023 09:28:19 Influenza, high-dose, trivalent, PF 4 completed Susana Allar null, [facility] 01/25/2023 09:28:19 Influenza, high-dose, trivalent, PF 6 completed Susana Allar null, [facility] 01/25/2023 09:28:19 Influenza, high-dose, trivalent, PF 5 completed Susana Allar null, [facility] 01/25/2023 09:28:19 Influenza, split virus, trivalent, preservative 2 completed Susana Allar null, [facility] 01/25/2023 09:28:19 Influenza, split virus, trivalent, preservative 1 completed Susana Allar null, [facility] 01/25/2023 09:28:19 Influenza, split virus, trivalent, preservative 6 completed Susana Allar null, [facility] 01/25/2023 09:28:19 Influenza, split virus, trivalent, preservative 4 completed Susana Allar null, [facility] 01/25/2023 09:28:19 Influenza, split virus, trivalent, preservative 3 completed Susana Allar null, [facility] 01/25/2023 09:28:19 Influenza, split virus, trivalent, preservative 0 completed Susana Allar null, [facility] 01/25/2023 09:28:19 Influenza, split virus, trivalent, preservative 7 completed Susana Allar null, [facility] 01/25/2023 09:28:19 Influenza, split virus, trivalent, preservative 5 completed Susana Allar null, [facility] 01/25/2023 09:28:19 Td (adult), 5 Lf tetanus toxoid, preservative free, adsorbed 5 completed Susana Allar null, [facility] 01/25/2023 09:28:19 typhoid, ViCPs 2 completed Susana Allar null, [facility] 01/25/2023 09:28:19 typhoid, ViCPs 1 completed Susana Allar null, [facility] 01/25/2023 09:28:19 Hep A-Hep B 2 completed Susana Allar null, [facility] 01/25/2023 09:28:19 Hep A-Hep B 2 completed Susana Allar null, [place] [facility] 01/25/2023 09:28:19 Hep A-Hep B 2 completed NATALIE Cary [facility] 01/25/2023 09:28:19 Past Encounters Encounter ID Performer Location Encounter Start Date Encounter Closed Date Diagnosis/Indication Diagnosis SNOMED-CT Code Diagnosis ICD10 Code Diagnosis IMO Codes Diagnosis Note [id number] ANTOINE RAMOS PA-C [facility] [address] [place] [address] 11/10/2024 10:42:48 11/17/2024 15:53:02 Urinary symptoms 131307654 R39.9 [id number] Louis Cook MD [facility] [address] [place] [address] 12/05/2024 12:10:36 12/07/2024 11:21:36 Malignant neoplasm of prostate [id number] C61 1. Prostate cancer- cT1c - Kite 3+3 = 6 - on expectant management - PSA (13.7) - increased - has fluctuated over the years- Follow-up in 3 months with PSA(if PSA increases significan t - check Prostate MRI and recommend TRUS bx Increased frequency of urination 029535488 R35.0 2. Urinary frequency- he is off Lasix- incomplete emptying (188 mL)- stop Gemtesa 75 mg daily Lower urin robbin tract symptoms due to benign prostatic hypertrophy 4574355341 9101 N40.1 4. BPH- high PVR = 188 mL- continue Flomax 0.4 mg daily- add Cialis 5 mg daily- check Bladder scan at Follow-up Microscopic hematuria 19 [id number] R31.29 [id number] 3. Microscopi c hematuria- check CT Urogram- will need Cystoscopy in near future Health Concerns Section Related Observation LastModified by Organization Detai ls LastModified Time None Recorded Concern Status LastModified by Organization Details LastModified Time None Recorded Payers Encounter Date Sequence Insurance Name Policy Number Policy Sam Covered Member ID Sam Member ID Guarantor Name 12/05/2024 1 [place] (MEDICARE [place]AC[place] PPO) [id number] Enrike Coleman [id number] Enrike Coleman Notes Date Note Type Note Provider Name and Address Organization Details Recorded Time 12/05/2024 text/html 84 yo male with history of A.fib (on Eliquis), HTN, DM, memory loss, PMR, BPH, and Prostate cancer - T1c - Luisa 3+3 = 6 - involving 1/10 cores (< 5%) on Left - TRUS bx (12/15/12) by Dr. Herrera - on expectant management. Prostate MRI (2014) revealed a PI-RADS 2 lesion - underwent MRI bx (10/31/14) of lesion at [facility] - benign. No family H/O prostate cancer.He is on Flomax 0.4 mg daily and Gemtesa 75 mg daily. 10/11/23- He presents for follow-up on Prostate cancer. He voids every 2-4 hours during the day and 1-2x/night. 05/30/24 - He presents for follow-up on Prostate cancer. 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 He reports more frequent / urgent urination since his surgery (on Lasix 40 mg in AM). He voids every 30-2 hours during the day and 1-2x/night. 09/25/24 ([place]) - He presents for worsening urge incontinence. Notes his frequency is slightly improved since stopping lasix (voids q 60-90 minutes during day, q2 hours during the night). Has started wearing a pad and does not always have sensation of wetting himself, bothered by strong urge. Also notes weakening stream and worsening fatigue. No longer on lasix, and is tapering down prednisone (for PMR flare). Believes he's still taking flomax. He is also on Jardiance, denies h/o UTIs. 12/05/24 - He presents for follow-up on Prostate cancer and urination. He voids every 1 hours during the day and 6-7x/night. He reports urgency and hesitancy - denies dysuria. He has CABGx3 (Mar 2024).- PVR = 188 mL- PSA - 13.7 _PSA - 6.85 (09/09/12) - 10.5 (10/11/23)- 7.13 (09/26/12) - 10.3 (05/30/24)- 6.52 (10/07/12) - 13.7 (12/05/24)- 8.67 (09/12/14)- 7.44 (04/09/15)- 7.21 (10/16/15)- 7.64 (10/01/16)- 6.74 (03/10/17)- 6.91 (02/11/18)- 10.96 (11/14/18)- 7.53 (02/16/19)- 6.51 (03/07/20)- 9.21 (11/13/20)- 8.30 (06/09/21)- 11.80 (09/15/22)- 9.08 (04/16/23) Louis Cook MD [address] [facility] [address], [place], [address], [facility] 12/05/2024 13:50:09
--- OUTSIDE RECORDS SUMMARY | 2024-12-28 04:46 | XMS_ITS | Continuity of Care Document ---
Author Organization [facility], [facility] Address [address] [place] [address] Care Team Providers Care Blacksmith Assistant Name Role Phone LINDSAY SANFORD Referring Provider Assessment No assessment recorded. Plan of Treatment Reminders Order Date Submit Date Provider Last Modified By Organization Details Last Modified Time Details Appointments PSA 10 2025 01:30P M [facility] Not available Not available Not available ESTABL ISHED 10 2025 01:50P M Louis Cook MD Not available Not available Not available Lab urinal ysis, dipsti ck 2024 025 [place] ro [facility], [address], [place], [address], 12/26/2024 14:05:06 cultur e, urine 2024 025 [facility], [address], [place], [address], 12/26/2024 15:28:33 Referral None record ed. Procedures None record ed. Surgeries cystos copy (SURG) 2024 025 [email or web address] Not available 12/27/2024 15:49:02 Imaging None record ed. Medication Orders None record ed. Patient TargetsNo targets recorded. Patient InstructionsNo instructions recorded. Reason for Referral None Reported. Results Created Date Observation Date Name Description Value Unit Range Abnormal Flag Note LastModifiedBy Organization Detail LastModifiedTime 12/06/19 25 12/05/2024 PSA, serum or plasm a PSA 13.7ng /mL 0-4.0 NG/mL Not Available [facility] [address], [place], [address], 11/22/2024 15:45:12 12/27/19 25 12/26/2024 urina lysis , dipst ick BLOOD Large (250 RBC/uL ) Not Available [facility] [address], [place], [address], 12/26/2024 14:04:23 12/27/19 25 12/26/2024 urina lysis , dipst ick BILIRUBIN Negati ve Not Available [facility] [address], [place], [address], 12/26/2024 14:04:23 12/27/19 25 12/26/2024 urina lysis , dipst ick UROBILINOGEN 0.2 mg/dL (Norm) Not Available [facility] [address], [place], [address], 12/26/2024 14:04:23 12/27/19 25 12/26/2024 urina lysis , dipst ick KETONES Negati ve Not Available [facility] [address], [place], [address], 12/26/2024 14:04:23 12/27/19 25 12/26/2024 urina lysis , dipst ick PROTEIN 100 mg/dL Not Available [facility] [address], [place], [address], 12/26/2024 14:04:23 12/27/19 25 12/26/2024 urina lysis , dipst ick NITRITES Negati ve Not Available [facility] [address], [place], [address], 12/26/2024 14:04:23 12/27/19 25 12/26/2024 urina lysis , dipst ick GLUCOSE >2000 mg/dL Not Available [facility] [address], [place], [address], 12/26/2024 14:04:23 12/27/1912/26/2024 urina lysis , dipst ick p.H. 5.0 Not Available [facility] [address], [place], [address], 12/26/2024 14:04:23 12/27/1912/26/2024 urina lysis , dipst ick S.G. (Specific [place]) 1.025 Not Available [facility] [address], [place], [address], 12/26/2024 14:04:23 12/27/1912/26/2024 urina lysis , dipst ick LEUKOCYTES Small (25 WBC/uL ) Not Available [facility] [address], [place], [address], 12/26/2024 14:04:23 12/14/1912/12/2024 CT, urogr am No observ ation record ed. [facility] [address] [facility], [place], [address], 12/18/2024 14:28:50 Result Notes None recorded. Procedures Surgical History Date Name Laterality Status Provider Name and Address Organization Details Recorded Time 5 Cystoscopy- male completed Louis Cook MD [address] [facility],[address], [place], [address], [facility] 12/26/2024 19:09:00 5 Keflex post Cysto completed Carlos Enrique falcon [facility] 12/26/2024 13:31:05 5 Urinalysis completed Carlos Enrique falcon [facility] 12/26/2024 13:30:59 5 TAPE SEWING MACHINE OPERATOR/blood draw completed Carlos Enrique falcon [facility] 12/05/2024 12:14:49 5 Bladder Scan completed Louis Cook MD [address] [place] [address], [address], [facility] 12/05/2024 12:32:40 5 Urine Culture completed Meli Rowan [facility] 11/10/2024 11:16:59 5 Urinalysis completed Meli Rowan [facility] 11/10/2024 11:16:57 5 Urine Culture completed Anastasiia Ingram [facility] 09/25/2024 12:27:34 5 Urinalysis completed Anastasiia Ingram [facility] 09/25/2024 11:46:34 5 Bladder Scan completed Anastasiia Ingram [facility] 09/25/2024 11:46:26 5 Blood Draw/TAPE SEWING MACHINE OPERATOR/PSA RESULTS completed Louis Cook MD [address] [place] [address],[address], [address], [facility] 05/30/2024 12:41:37 4 Blood Draw/TAPE SEWING MACHINE OPERATOR/PSA RESULTS completed Carlos Enrique falcon [facility] 10/11/2023 10:18:27 3 Heart Surgery completed Louis Cook MD [address] [place] [address],[address], [address], [facility] 09/28/2022 16:37:35 procedure on spine completed Louis Cook MD [address] [place] [address],[address], [address] 09/28/2022 16:37:23 Imaging Results None recorded. Procedure [...] Not Available Not Available Not Available Vitals None Recorded Social History Question Answer Notes LastModified by Organizat ion Details LastModified Time Tobacco Smoking Status Former Smoker Louis Cook MD [address] [facility],[address], [place], [address], [facility] 09/28/2022 16:37:00 What Is Your Level [...] available 2022 16:36:20 Medical History Condition Response Sexually Transmitted Infection N Diabetes Y Other Y Bleeding Disorder Y High Blood Pressure Y Kidney Stones N Cancer Y Depression N Lung Disease N High Cholesterol N Heart Disease Y Immunizations Vaccine Type Date Status Note Provider Nam e and Address Organization Details Recorded Time Influenza, high-dose, quadrivalent, PF 3 completed Louis Cook MD [address] [place] [address], [facility] 04/26/2023 10:59:30 RSV, recombinant, protein subunit RSVpreF, adjuvant reconstituted, 0.5 mL, PF 3 completed Louis Cook MD [address] [place] [address] Urology 04/26/2023 10:59:31 COVID-19, mRNA, LNP-S, PF, 50 mcg/0.5 mL 3 completed Louis Cook MD [address] [place], [place] [phone], [facility] 04/26/2023 10:59:31 COVID-19, mRNA, LNP-S, PF, 50 mcg/0.5 mL 4 completed Not Available [facility] 12/26/2024 13:30:47 COVID-19, mRNA, LNP-S, PF, 50 mcg/0.5 mL 4 completed Not Available [facility] 12/26/2024 13:30:47 Influenza, adjuvanted, trivalent, PF 4 completed Not Available [facility] 12/26/2024 13:30:47 COVID-19, mRNA, LNP-S, PF, 50 mcg/0.5 mL 5 completed Not Available [facility] 12/26/2024 13:30:47 IPV 2 completed Susana Allar null, [facility] 01/25/2023 09:28:19 Influenza, adjuvanted, trivalent, PF 7 completed Susana Allar null, [facility] 01/25/2023 09:28:19 Influenza, adjuvanted, trivalent, PF 9 completed Susana Allar null, [facility] 01/25/2023 09:28:19 Influenza, adjuvanted, trivalent, PF 8 completed Susana Allar null, [facility] 01/25/2023 09:28:19 zoster recombinant 0 completed Sus[facility] Allar null, [facility] 01/25/2023 09:28:19 zoster recombinant 9 completed Susana Allar null, [facility] 01/25/2023 09:28:19 Influenza, adjuvanted, quadrivalent, PF 0 completed Susana Allar null, [facility] 01/25/2023 09:28:19 Influenza, adjuvanted, quadrivalent, PF 2 completed Susana Allar null, [facility] 01/25/2023 09:28:19 Influenza, adjuvanted, quadrivalent, PF 1 completed Susana Allar null, [facility] 01/25/2023 09:28:19 COVID-19, mRNA, LNP-S, PF, 100 mcg/0.5mL dose or 50 mcg/0.25mL dose 1 completed Susana Allar null, [facility] 01/25/2023 09:28:19 COVID-19, mRNA, LNP-S, PF, 100 mcg/0.5mL dose or 50 mcg/0.25mL dose 1 completed Susana Allar null, [facility] 01/25/2023 09:28:19 COVID-19, mRNA, LNP-S, PF, 100 mcg/0.5mL dose or 50 mcg/0.25mL dose 1 completed Susana Allar null, [facility] 01/25/2023 09:28:19 Pneumococcal conjugate PCV20, polysaccharide [id number] conjugate, adjuvant, PF 3 completed Susana Allar null, [facility] 01/25/2023 09:28:19 COVID-19, mRNA, LNP-S, PF, 30 mcg/0.3 mL dose, octavia-sucrose 2 completed Susana Allar null, [facility] 01/25/2023 09:28:19 COVID-19, mRNA, LNP-S, bivalent, PF, 50 mcg/0.5 mL or 25mcg/0.25 mL dose 3 completed Susana Allar null, [facility] 01/25/2023 09:28:19 COVID-19, mRNA, LNP-S, bivalent, PF, 50 mcg/0.5 mL or 25mcg/0.25 mL dose 2 completed Susana Allar null, [facility] 01/25/2023 09:28:19 pneumococcal polysaccharide PPV23 6 completed Susana Allar null, [facility] 01/25/2023 09:28:19 pneumococcal polysaccharide PPV23 6 completed Susana Allar null, [facility] 01/25/2023 09:28:19 Tdap 1 completed Susana Allar null, [facility] 01/25/2023 09:28:19 Tdap 1 completed Susana Allar null, [facility] 01/25/2023 09:28:19 Pneumococcal conjugate PCV 13 5 completed Susana Allar null, [facility] 01/25/2023 09:28:19 yellow fever live 2 completed Susana Allar null, [facility] 01/25/2023 09:28:19 yellow fever live 1 completed Susana Allar null, [facility] 01/25/2023 09:28:19 zoster live 7 completed Susana Allar null, [facility] 01/25/2023 09:28:19 Influenza, high-dose, trivalent, PF 4 completed Susana Allar null, [facility] 01/25/2023 09:28:19 Influenza, high-dose, trivalent, PF 6 completed Susana Allar null, [facility] 01/25/2023 09:28:19 Influenza, high-dose, trivalent, PF 5 completed Susana Allar null, [facility] 01/25/2023 09:28:19 Influenza, split virus, trivalent, preservative 2 completed Susana Allar null, [facility] 01/25/2023 09:28:19 Influenza, split virus, trivalent, preservative 1 completed Susana Allar null, [facility] 01/25/2023 09:28:19 Influenza, split virus, trivalent, preservative 6 completed Susana Allar null, [facility] 01/25/2023 09:28:19 Influenza, split virus, trivalent, preservative 4 completed Susana Allar null, [facility] 01/25/2023 09:28:19 Influenza, split virus, trivalent, preservative 3 completed Susana Allar null, [facility] 01/25/2023 09:28:19 Influenza, split virus, trivalent, preservative 0 completed Susana Allar null, [facility] 01/25/2023 09:28:19 Influenza, split virus, trivalent, preservative 7 completed Susana Allar null, [facility] 01/25/2023 09:28:19 Influenza, split virus, trivalent, preservative 5 completed Susana Allar null, [facility] 01/25/2023 09:28:19 Td (adult), 5 Lf tetanus toxoid, preservative free, adsorbed 5 completed Susana Allar null, [facility] 01/25/2023 09:28:19 typhoid, ViCPs 2 completed Susana Allar null, [facility] 01/25/2023 09:28:19 typhoid, ViCPs 1 completed Susana Allar null, [facility] 01/25/2023 09:28:19 Hep A-Hep B 2 completed Susana Allar null, [facility] 01/25/2023 09:28:19 Hep A-Hep B 2 completed Susana Allar null, [facility] 01/25/2023 09:28:19 Hep A-Hep B 2 completed Susana Allar null, [facility] 01/25/2023 09:28:19 Past Encounters Encounter ID Performer Location Encounter Start Date Encounter Closed Date Diagnosis/Indication Diagnosis SNOMED-CT Code Diagnosis ICD10 Code Diagnosis IMO Codes Diagnosis Note [id number] MD LUIS ANGEL [facility] [employer] [address] [place] [address] 12/05/2024 12:10:36 12/07/2024 11:21:36 Malignant neoplasm of prostate 841169091 C61 1. Prostate cancer- cT1c - Luisa 3+3 = 6 - on expectant management - PSA (13.7) - increased - has fluctuated over the years- Follow-up in 3 months with PSA(if PSA increases significan t - check Prostate MRI and recommend TRUS bx Increased frequency of urination 297790264 R35.0 2. Urinary frequency- he is off Lasix- incomplete emptying (188 mL)- stop Gemtesa 75 mg daily Lower urin robbin tract symptoms due to benign prostatic hypertrophy 5367687732 9101 N40.1 4. BPH- high PVR = 188 mL- continue Flomax 0.4 mg daily- add Cialis 5 mg daily- check Bladder scan at Follow-up Microscopic hematuria 19 9367038 R31.29 [id number] 3. Microscopi c hematuria- check CT Urogram- will need Cystoscopy in near future [id number] MD Solange Madrigal [address] [place] [address] 12/26/2024 13:28:42 12/26/2024 19:09:48 Malignant neoplasm of prostate [id number] C61 2. Prostate cancer- cT1c - Luisa 3+3 = 6 - on expectant management - PSA (13.7) - increased - has fluctuated over the years- Follow-up in 3 months with PSA(if PSA increases significan t - check Prostate MRI and recommend TRUS bx Increased frequency of urination 638593756 R35.0 H/O Urinary frequency- he is off Lasix- incomplete emptying (188 mL)- stopped Gemtesa 75 mg daily Microscopic hematuria 19 7294670 R31.29 [id number] 1. Microscopi c hematuria- CT Urogram (12/12/24) - no renal masses, hydronephr osis or filling defects - 3 (1mm) stones in Right kidney - + diffuse bladder wall thickening and large prostate.- Lung - small nodules - new 7 mm nodule Right medial lower lobe(repea t Chest CT scan recommende d in 3-6 months)- Cystoscopy (12/26/24) - unable to see due to debris in bladder- recommend Cystoscopy with MAC anesthesia Lower urin robbin tract symptoms due to benign prostatic hypertrophy [id number] 9101 N40.1 3. BPH- last PVR = 188 mL- continue Flomax 0.4 mg daily- continue Cialis 5 mg daily- check Bladder scan at Follow-up Multiple n odules of lung 377108799 R91.8 [id number] 4. Pulmonary nodules- CT Urogram (12/12/24) - no renal masses, hydronephr osis or filling defects - 3 (1mm) stones in Right kidney - + diffuse bladder wall thickening and large prostate.- Lung - small nodules - new 7 mm nodule Right medial lower lobe- (repeat Chest CT scan recommende d in 3-6 months) Health Concerns Section Related Observation LastModified by Organization Detai ls LastModified Time None Recorded Concern Status LastModified by Organization Details LastModified Time None Recorded Payers Encounter Date Sequence Insurance Name Policy Number Policy Sam Covered Member ID Sam Member ID Guarantor Name 12/26/2024 1 [place] (MED[place]PO) [id number] Enrike Coleman [id number] Enrike Coleman Notes Date Note Type Note Provider Name and Address Organization Details Recorded Time 12/26/2024 text/html 84 yo male with history of A.fib (on Eliquis), HTN, DM, memory loss, PMR, BPH, and Prostate cancer - T1c - Theresa 3+3 = 6 - involving 1/10 cores (< 5%) on Left - TRUS bx (12/15/12) by Dr. Herrera - on expectant management. Prostate MRI (2014) revealed a PI-RADS 2 lesion - underwent MRI bx (10/31/14) of lesion at [facility] - benign. No family H/O prostate cancer.He is on Flomax 0.4 mg daily and stopped Gemtesa 75 mg daily. 05/30/24 - He presents for follow-up on Prostate cancer. 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 He reports more frequent / urgent urination since his surgery (on Lasix 40 mg in AM). He voids every 30-2 hours during the day and 1-2x/night. 09/25/24 (Nabila) - He presents for worsening urge incontinence. [...] urgency and hesitancy - denies dysuria. He had a CABGx3 (Mar 2024). 12/26/24 - He presents for follow-up on hematuria. He denies gross hematuria recently.- UA - large blood, neg nit, small LE ____PSA - 6.85 (09/09/12) - 10.5 (10/11/23)- 7.13 (09/26/12) - 10.3 (05/30/24)- 6.52 (10/07/12) - 13.7 (12/05/24)- 8.67 (09/12/14)- 7.44 (04/09/15)- 7.21 (10/16/15)- 7.64 (10/01/16)- 6.74 (03/10/17)- 6.91 (02/11/18)- 10.96 (11/14/18)- 7.53 (02/16/19)- 6.51 (03/07/20)- 9.21 (11/13/20)- 8.30 (06/09/21)- 11.80 (09/15/22)- 9.08 (04/16/23) CT Urogram (12/12/24) - no renal masses, hydronephrosis or filling defects - 3 (1mm) stones in Right kidney - + diffuse bladder wall thickening and large prostate.- Lung - small nodules - new 7 mm nodule Right medial lower lobe Louis Cook MD [address] [facility],[address], [place], [address], [facility] 12/26/2024 19:09:44
--- OUTSIDE RECORDS SUMMARY | 2024-12-28 04:46 | XMS_ITS | Encounter Summary ---
Author Organization [facility] Address [address] [place] [address] Care Team Providers Care Ethical Hacker Name Role Phone Clinic, Not Listed Unavailable Unavailable Bari Toscano MD Primary Care Provider America Lim PA-C Unavailable [phone] Encounter Details Date Type Department Care Team (Late st Contact Info) Description 10/20/2024 Results Follow-Up [facility] - [address] [place] [phone] America Lim PA-C [address] [place] [address] [place] [phone] METHYLMALONIC ACID, SERUM ([facility]), TSH ([facility]), VITAMIN D, 25-HYDROXY ([facility]), Additional followed-up results: 5 Social History Tobacco Use Types Packs/Day Years Used Date Smoking Tobacco: Former Cigarettes Smokeless Tobacco: Never Sex and Gender Information Value Date Recorded Sex Assigned at Not on file Legal Sex Male 9:56 AM CDT Gender Identity Not on file Sexual Orientation Not on file documented as of this encounter Plan of Treatment Not on file documented as of this encounter Visit Diagnoses Diagnosis Vitamin D deficiency- Primary Unspecified vitamin D deficiency documented in this encounter Care Teams Ethical Hacker Relationship Specialty Start Date End Date Clinic, Not Listed PCP - Primary Care Clinic 04/06/06 Bari Toscano MD [address] [place] [address] PCP - General Family Medicine 08/30/24 America Lim PA-C [address] [facility] [address] [place] [address] Neurology 08/30/24 documented as of this encounter
--- OUTSIDE RECORDS SUMMARY | 2024-12-28 04:47 | XMS_ITS | Clinical Summary ---
Author Organization [facility] Address [address] [place] [address] Care Team Providers Care Battalion Chief Name Role Phone Pardeep Baird [facility] Unavailable + Rocael Gamez Unavailable aBri Toscano MD Primary Care Provider Hudson Valle MD Unavailable [phone] Allergies No known active allergies Medications lancets (Microlet Lancet)Indicatio ns:Type 2 diabetes mellitus without complication, without long-term current use of insulin (HC) Dispense item covered by pt ins. 250.00 NIDDM type II - Test twice a week 50 Each 3 12/26/19 21 Active nitroglycerin (NITROSTAT) 0.4 mg sublingual tabletIndication [...] area(s). 44 mL 3 02/15/20 24 Active Additional Information Patient not taking.Reported on 12/11/2024 acetaminophen (TYLENOL) 325 mg tabletIndication s:S/P CABG x 3 Take 2 Tablets (650 mg) by mouth every 4 hours if needed for Pain (for pain >2). Max acetaminophen dose: 4000mg in 24 hrs. 03/20/19 25 Active cyanocobalamin (Vitamin B-12) 1,000 mcg tabletIndication s:Vitamin B12 deficiency Take 1 Tablet (1,000 mcg) by mouth once daily. 90 Tablet 3 04/24/19 25 Active apixaban (Eliquis) 5 mg tabletIndication s:Atrial fibrillation, unspecified type (HC) Take 1 Tablet (5 mg) by mouth two times daily. 60 Tablet 12 04/24/19 25 Active metoprolol succinate (TOPROL XL) [...] meal. 90 Capsule 3 04/24/19 25 Active triamcinolone 0.1 % ointmentIndicati ons:Rash Apply topically to affected area(s) three times daily. 80 g 05/10/19 25 Active predniSONE 5 mg tabletIndication s:PMR (polymyalgia rheumatica) (HC) Take 1 Tablet (5 mg) by mouth once daily with a meal. 30 Tablet 07/15/19 25 Active gabapentin 300 mg capsuleIndicatio ns:Spinal stenosis of lumbar region with neurogenic claudication TAKE 1 CAPSULE (300 MG) BY MOUTH AT BEDTIME. 90 Capsule 08/18/19 25 Active predniSONE (DELTASONE) 1 mg tabletIndication s:PMR (polymyalgia rheumatica) (HC) TAKE 3 TABLETS BY MOUTH DAILY FOR TWO WEEKS, THEN IF TOLERATED REDUCE BY 1 TABLET (1 MG) EVERY TWO WEEKS. 100 Tablet 2 11/22/19 Active Additional Information Patient taking differently: TAKE 3 TABLETS BY MOUTH DAILY FOR TWO WEEKS, THEN IF TOLERATED REDUCE BY 1 TABLET (1 MG) EVERY TWO WEEKS.Back on 5 MG, Reported on 12/11/2024 vibegron (GEMTESA) 75 mg tabletIndication s:OAB (overactive bladder) Take 1 Tablet (75 mg) by mouth once daily. Swallow tablet whole. May be crushed and mixed in applesauce. Follow with glass of water. 11/22/19 25 Active metFORMIN (GLUCOPHAGE XR) 500 mg Extended-Release tabletIndication s:Controlled type 2 diabetes mellitus without complication, without long-term current use of insulin (HC) Take 4 Tablets (2,000 mg) by mouth once daily with evening meal. 360 Tablet 11/23/19 Active empagliflozin (Jardiance) 10 mg tabletIndication s:S/P CABG x 3 Take 1 Tablet (10 mg) by mouth once daily. 90 Tablet 1 11/23/19 Active Additional Information Patient taking differently:10 mg Oral DAILY,Unsure of dose, Reported on 12/11/2024 glipiZIDE extended-release (GLUCOTROL XL) 10 mg Extended-Release tabletIndication s:Type 2 diabetes mellitus without complication, without long-term current use of insulin (HC) Take 2 Tablets (20 mg) by mouth once daily before a meal. 180 Tablet 1 11/23/19 Active blood sugar diagnostic (True Metrix Glucose Test Strip) stripIndications :Type 2 diabetes mellitus without complication, without long-term current use of insulin (HC) TEST 2 TIMES PER WEEK. 50 Each 3 11/25/19 25 Active tadalafiL (CIALIS) 5 mg tablet Take 5 mg by mouth once daily. 12/06/19 25 Active potassium chloride (KLOR-CON M20) 20 mEq extended-release tablet (part/cryst)Chana cations:S/P CABG x 3 Take 1 Tablet (20 mEq) by mouth once daily. As needed if he takes furosemide. 09/12/19 25 025 Discontin ued(*Med complete/ Regimen complete/ Level of care change) furosemide (LASIX) 20 mg tablet Take 1 Tablet (20 mg) by mouth once daily in the morning. As needed for signs of fluid retention. 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 [...] Encounters Date Type Department Care Team Description 12/12/2024 9:10 AM CDT Ancillary Procedure [facility] [address] [place] [address] 12/12/2024 8:15 AM CDT Orders Only [facility] [address] [place] [address] Lab, [place] <No scans attached> 12/11/2024 9:00 AM CDT Office Visit [facility] [place] [address] [facility] [address] [place] [address] Case, JEFFERY Briggs Follow Up (6 month F/U-HFrEF (heart failure with reduced ejection fraction) (HC) [I50.20]/also referred back to see cardiology by PMD / PT states feeling ok, but not very alert. His eye sight is not well and can barley see. No cardiac symptoms today. Nothing to note cardiac sanchez. He did have a fall back in September. Is being treated for vertigo. ) 12/11/2024 Travel 12/05/2024 Transcribe Orders Customer Experience [facility] [phone] Louis Cook MD 11/22/[address] [address] Bari Toscano MD Refill Request (True Metrix Glucose Test Strip) 11/22/2024 Orders Only [address] [address] Bari Toscano MD <No scans attached> 11/21/2024 8:25 AM CDT Office Visit [address] [address] Bari Toscano MD Follow Up 11/21/[address] [address] Bari Toscano MD Refill Request (Metformin, Glipizide Extended-release) 11/20/2024 4:00 PM CDT Office Visit [address] [address] Erik Hahn MD Follow Up (excisional debridement of unhealing traumatic scalp laceration) 11/20/2024 Travel 11/16/2024 Orders Only [facility] Scanner 1 scan: (1-Ord) [facility] 11/16/[address] [address] Bari Toscano MD Refill Request (Metformin, Jardiance) 11/14/[address] [address] Bari Toscano MD Refill Request (Glipizide Extended-release) 11/09/2024 Telephone [facility] [address] [place] [address] Sheldon Enriquez RN 11/06/2024 3:15 PM CDT Office Visit [facility] [address] [place] [address] Erik Hahn MD Follow Up (Excisional debridement of left posterior scalp and right mid thigh abscess 10/25/24) 11/06/2024 Travel 10/24/2024 Transcribe Orders [facility] [place] [phone] America Lim PA-C 10/23/2024 12:30 PM CDT Office Visit [address] [address] Erik Hahn MD Consult (Head injury --check head injury -laceration DOI-10/02/24/Also was seen in ED for cellulitis right thigh) 10/23/2024 Travel 10/18/2024 1:40 PM CDT Office Visit [facility] [address] [place] [address] Bari Toscano MD Follow Up (Head injury) 10/18/2024 Travel 10/11/2024 10:55 AM CDT Office Visit [address] [address] Bari Toscano MD ER Follow up (10/02/2024, [facility] ER, fall with head laceration) 10/11/2024 Travel 10/06/2024 Refill [facility] [address] [place] [address] Bari Toscano MD Refill Request (Prednisone) 09/29/2024 2:30 PM CDT Office Visit [address] [address] Bari Toscano MD Follow Up (Left arm) 09/29/2024 Travel from Last 3 Months Immunizations Immunization Administration [...] isolated from those around you? 0 03/13/2024 Alcohol Use Answer Date Recorded How often do you have a drink containing alcohol ? 4 12/11/2024 How many drinks containing a lcohol do you have on a typical day when you are drinking? 0 12/11/2024 How often do you have five or more drinks on one occasion? 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 Gender Identity Not on file Sexual Orientation Not on file Obstetrics History Last Filed Vital Signs Vital Sign Reading Time Taken Comments Blood Pressure 105/62 12/11/2024 9:07 AM CDT Pulse 75 12/11/2024 9:07 AM CDT Temperature 36.5 C (97.7 F) 10/23/2024 12:25 PM CDT Respiratory Rate 20 04/13/2024 3:00 PM SALES PROMOTER Oxygen Saturation 95% 12/11/2024 9:07 AM CDT Inhaled Oxygen Concentration - - Weight 87.2 kg (192 lb 4.8 oz) 12/11/2024 9:07 A M CDT Height 170.2 cm (5' 7) 12/11/2024 9:07 AM CDT Body Mass Index 30.12 12/11/2024 9:07 AM CDT Plan of Treatment Upcoming Encounters Date Type Department Care Team (Late st Contact Info) Description 12/28/2024 1:00 PM CDT Appointment [facility] Medical Imaging [address] [address] 12/28/2024 1:00 PM CDT Appointment [facility] MRI/CT [address] [place] [address] 01/01/2025 1:15 PM SALES PROMOTER Office Visit [facility] [address] [place] [address] Bari Toscano MD [address] [place] [address] 01/12/2025 1:51 PM SALES PROMOTER Hospital Encounter [facility] [address] [place] [address] Louis Cook MD [address] [facility] [address] [place] [address] 01/12/2025 1:51 PM SALES PROMOTER - 01/12/2025 2:54 PM SALES PROMOTER Surgery [facility] [address] [place] [address] Louis Cook MD [address] [place] [address] Cystoscopy 02/06/2025 1:00 PM SALES PROMOTER Cardiac Device Check [facility] at [facility] [address] [place] [address] Scheduled Procedures Name Priority Associated Diagnoses Date/Ti me CYSTOSCOPY Tier 2: within 30 days R31.29 Other microscopic hematuria 01/12/2025 1:51 PM SALES PROMOTER CYSTOSCOPY BIOPSY interactive developer 2: within 30 days R31.29 Other microscopic hematuria 01/12/2025 1:51 PM SALES PROMOTER Health Maintenance Due Date Last Done Comments Influenza Vaccine (#1) 2024 4, 11/10/2021, 12/09/2020, Additional history exists Medicare Wellness for age 65+ 06/03/2025, 06/09/2023, 06/12/2022, Additional history exists Depression screening for age 12+ 06/05/2025 06/05/2024, 06/05/2024, 06/05/2024, Additional history exists BMI (ht and wt on same day) for age 18+ 12/11/2025 12/11/2024, 06/15/2024, 06/02/2024, Additional history exists Tetanus booster 06/11/2030 06/11/2020, 04/29, 10/22/2006, Additional history exists Hepatitis B series for 19+ Completed 10/24, 06/21/2001, 05/20/2001 Zoster (shingles) series for age 50+ Completed 03/06/2019, 12/14/2018, 11/17/2006 Pneumococcal series for age 50+ Completed 03/27/2022, 09/21/2014, 12/03/2005, Additional history exists RSV vaccine for adults or Completed 01/19/2023 Goals Goal Patient Goal Type Associated Problems Recent Progress Patient-Stated? Author Autogenera dann Goal Care Plan Autogenerated Problem No [employer] Implanted Type Area Duplex Trimmer Device Identifier Shelf Expiration Date Model / Serial / Lot Occluder Meghan 40mm Atriclip Flex V Exclusion Sys - [id number] Implanted:Qty: 1 on 03/10/2024 by Tonja Redman MD at [facility] N/A: Heart [employer] 12/30/2024 [id number] / / [id number] Description:[employer] AtriCli p . SIZE: 40MM. REF: [id number]. LOT: [id number]. Implanted on 03/10/[address] Redman at [facility]. Procedures Procedure Name Priority Date/Time Associated Diagnosis Comments CT ABDOMEN PELVIS UROGRAM WWO Routine 12/12/2024 9:52 AM CDT Other microscopic hematuria CREATININE,ISTAT Routine 12/12/2024 9:17 AM CDT Observation or evaluation for suspected condition URINE ALBUMIN TO CREATININE RATIO, RANDOM Routine 11/21/2024 9:50 AM CDT Type 2 diabetes mellitus without complication, without long-term current use of insulin (HC) METHYLMALONIC ACID BLOOD Routine 11/21/2024 9:29 AM CDT Vitamin B12 deficiency HEMOGLOBIN A1C MONITORING (POCT) Routine 11/21/2024 9:29 AM CDT Type 2 diabetes mellitus without complication, without long-term current use of insulin (HC) VITAMIN B12 Routine 11/21/2024 8:12 AM CDT Vitamin B12 deficiency SCAN-ELECTROENCEPHALOG [facility] EEG INTERP 11/16/2024 12:00 AM CDT from Last 3 Months Results * CT ABDOMEN PELVIS UROGRAM WWO (12/12/2024 9:52 AM CDT) Anatomical Region Laterality Modality Abdomen, Pelvis, KIDNEYS, BLADDER Computed Tomography 12/13/2024 9:57 AM CDT Impressions 12/13/2024 9:57 AM CDT 1. Right nephrolithiasis. No obstruction. 2. Thick-walled hyperemic bladder. This is most likely cystitis although neoplasm is not excluded. 3. Enlarged prostate gland. 4. New nodules in the lung bases, larger 7 mm. See follow-up guidelines below. 5. Bronchial wall thickening and bronchiectasis in the lower lobes. [employer] SOC[employer]ETY GUIDELINES - SOLID NODULES: MULTIPLE LOW RISK - nodule less than 6 mm: No routine follow-up. - nodule 6-8 mm: CT at 3-6 months, then consider CT at 18-24 months. - nodule greater than 8 mm: CT at 3-6 months, then consider CT at 18-24 months. MULTIPLE HIGH RISK - nodule less than 6 mm: Optional CT at 12 months. - nodule 6-8 mm: CT at 3-6 months, then at 18-24 months. - nodule greater than 8 mm: CT at 3-6 months, then at 18-24 months. Please note that all CT scans at this facility use dose modulation, iterative reconstruction, and/or weight-based dosing when appropriate to reduce radiation dose to as low as reasonably achievable. Dictated by Tre Vallejo MD @ 12/13/2024 9:57:23 AM (Electronically Signed) Narrative 12/13/2024 9:57 AM CDT For Patients: As a result of the Century Cures Act, medical imaging exams and procedure reports are released immediately into your electronic medical record. You may view this report before your referring provider. If you have questions, please contact your health care provider. INDICATION: Microscopic hematuria TECHNIQUE: CT abdomen and pelvis without and with 100 mL Omnipaque 350 IV contrast, urogram protocol. COMPARISON: 05/28/[address] FINDINGS: Kidney/ureters: Several punctate nonobstructing stones in the right kidney best seen on the coronal images. No ureteral stone or hydronephrosis. Benign-appearing cysts in the kidneys. No solid renal mass. Normal symmetric nephrograms. Opacified portions of the intrarenal collecting systems and ureters appear normal. Benign-appearing cysts in the kidneys. No solid renal mass. Normal symmetric nephrograms. Opacified portions of the intrarenal collecting systems and ureters appear normal. Liver/gallbladder/bile ducts: The liver is normal in size, shape and attenuation. Gallbladder is normal without visualized stones or inflammation. No biliary dilatation. Spleen/pancreas/adrenal glands: Diffuse cystic change throughout the pancreas. Dilated pancreatic duct. Relative atrophy of the normal parenchyma. Some calcification in the tail. Spleen and adrenal glands are normal. GI tract: Large amount of stool throughout the colon. Abdominal wall/omentum/peritoneum: No free air or significant free fluid. No mass or inflammation. Lymph nodes: No lymphadenopathy. Pelvis: Prostate gland is enlarged. Urinary bladder is thick-walled with mucosal enhancement and adjacent stranding. Lower chest: New 7 mm nodule medial right lower lobe image 10 series 16 and 4 mm nodule medial right lower lobe image 18. Unchanged 6.5 mm subpleural nodule posterior left lower lobe image 27 and 4 mm nodule left lower lobe image 36. Mild bronchiectasis and bronchial wall thickening in the lower lobes. Pacemaker leads in the heart. Procedure Note Tre Vallejo MD - 12/13/2024 For Patients: As a result of the Cures Act, medical imagingexams and procedure reports are released immediately into your electronicmedical record. You may view this report before your referring provider.If you have questions, please contact your health care provider. INDICATION: Microscopic hematuria TECHNIQUE: CT abdomen and pelvis without and with 100 mL Omnipaque 350 IV contrast,urogram protocol. COMPARISON: 05/28/[address] FINDINGS: Kidney/ureters: Several punctate nonobstructing stones in the rightkidney best seen on the coronal images. No ureteral stone orhydronephrosis. Benign-appearing cysts in the kidneys. No solid renalmass. Normal symmetric nephrograms. Opacified portions of the intrarenalcollecting systems and ureters appear normal. Benign-appearing cysts inthe kidneys. No solid renal mass. Normal symmetric nephrograms. Opacifiedportions of the intrarenal collecting systems and ureters appear normal. Liver/gallbladder/bile ducts: The liver is normal in size, shape andattenuation. Gallbladder is normal without visualized stones orinflammation. No biliary dilatation. Spleen/pancreas/adrenal glands: Diffuse cystic change throughout thepancreas. Dilated pancreatic duct. Relative atrophy of the normalparenchyma. Some calcification in the tail. Spleen and adrenal glands arenormal. GI tract: Large amount of stool throughout the colon. Abdominal wall/omentum/peritoneum: No free air or significant free fluid.No mass or inflammation. Lymph nodes: No lymphadenopathy. Pelvis: Prostate gland is enlarged. Urinary bladder is thick-walled withmucosal enhancement and adjacent stranding. Lower chest: New 7 mm nodule medial right lower lobe image 10 series 16and 4 mm nodule medial right lower lobe image 18. Unchanged 6.5 mmsubpleural nodule posterior left lower lobe image 27 and 4 mm nodule leftlower lobe image 36. Mild bronchiectasis and bronchial wall thickening inthe lower lobes. Pacemaker leads in the heart. IMPRESSION: 1. Right nephrolithiasis. No obstruction. 2. Thick-walled hyperemic bladder. This is most likely cystitis althoughneoplasm is not excluded. 3. Enlarged prostate gland. 4. New nodules in the lung bases, larger 7 mm. See follow-up guidelinesbelow. 5. Bronchial wall thickening and bronchiectasis in the lower lobes. [employer] SOCIETY GUIDELINES - SOLID NODULES: MULTIPLE LOW RISK - nodule less than 6 mm: No routine follow-up. - nodule 6-8 mm: CT at 3-6 months, then consider CT at 18-24 months. - nodule greater than 8 mm: CT at 3-6 months, then consider CT at 18-24months. MULTIPLE HIGH RISK - nodule less than 6 mm: Optional CT at 12 months. - nodule 6-8 mm: CT at 3-6 months, then at 18-24 months. - nodule greater than 8 mm: CT at 3-6 months, then at 18-24 months. Please note that all CT scans at this facility use dose modulation,iterative reconstruction, and/or weight-based dosing when appropriate toreduce radiation dose to as low as reasonably achievable. Dictated by Tre Vallejo MD @ 12/13/2024 9:57:23 AM (Electronically Signed) us Louis Cook MD CT Final Resu lt * POCT Creatinine (12/12/2024 9:17 AM CDT) POCT,CREATININ E, ISTAT 1.1 0.6 - 1.3 mg/dL 12/12/2024 9:30 AM CDT [facility] Blood BLOOD SPECIMEN / Unknown [facility] / Unknown 12/12/2024 9:17 AM CDT 12/12/2024 9:17 AM CDT Louis Cook MD CHEMISTRY Final Resu lt Performing Organization Address City/[facility] [address]/ZIP Co de Phone Number [employer] [id number] [place] [address], [place] [phone] [facility] [address] [place] [address], [place] [phone] * (ABNORMAL) URINE ALBUMIN TO CREATININE RATIO, RANDOM (11/21/2024 9:50 AM CDT) ALB RAND URINE 351.0 mg/L 11/21/2024 6:24 PM CDT [facility] CREATININE,URIN E 0.59 g/L 11/21/2024 6:24 PM CDT [facility] ALBUMIN TO CREATININE RATIO,RAND UR 594.9(H) <30.0 mg/g creat 11/21/2024 6:24 PM CDT [facility] Urine URINE SPECIMEN / Unknown Non-Blood / Unknown 11/21/2024 9:50 AM CDT 11/21/2024 10:37 AM CDT Narrative [facility] - 11/21/2024 6:24 PM CDT If Albumin to Creatinine Ratio is elevated, consider the following: Elevations seen with incipient nephropathy associated with diabetes mellitus or hypertension. Stress, exercise,hematuria, and urinary tract infection may also produce elevated results. If clinically indicated, confirm with 24 Hour Albumin to Creatinine Ratio. us Bari Toscano MD URINE Final Result [facility] [address] [place] [address], [place] * METHYLMALONIC ACID BLOOD (11/21/2024 9:29 AM CDT) METHYLMALONIC ACID 98 85 - 423 nmol/L 11/22/2024 5:45 PM CDT [employer] Comment: See Note 1 Serum methylmalonic acid (MMA) levels are used to diagnose and monitor several rare inborn errors of metabolism, including methylmalonic aciduria. The enzymatic conversion of MMA to succinic acid requires vitamin B12 (adenosyl-cobalamin) as a cofactor. Serum MMA levels are also used for assessing functional vitamin B12 deficiency. Vitamin B12 is essential for neurodevelopment, particularly early in . Undiagnosed maternal vitamin B12 deficiency may be associated with adverse / outcomes, such as neural tube defects and intrauterine growth restriction. [employer] utilized Multi-Modal Decomposition (MMD) analysis to establish first and second trimester-specific MMA reference intervals in , as given below: MMA, First trimester (<13 wks gestation): 58-167 nmol/L MMA, Second trimester (13-23 wks gestation): 63-241 nmol/L Note 1 This test was developed and its analytical performance characteristics have been determined by [employer]. It has not been cleared or approved by the FDA. This assay has been validated pursuant to the CLIA regulations and is used for clinical purposes. Blood BLOOD SPECIMEN / Unknown [facility] / Unknown 11/21/2024 9:29 AM CDT 11/21/2024 9:29 AM CDT Bari Toscano MD SEND OUTS Final Result [employer] [address] [address], * (ABNORMAL) HEMOGLOBIN A1C MONITORING (POCT) (11/21/2024 9:29 AM CDT) POC HEMOGLOBIN A1C 8.3(H) <6.0 % OF TOTAL HGB 11/21/2024 10:02 AM CDT [facility] Comment: Any point of care results exhibiting inconsistency with the patient's clinical status should be repeated using a different testing method. Blood BLOOD SPECIMEN / Unknown [facility] Collect / Unknown 11/21/2024 9:29 AM CDT 11/21/2024 9:29 AM CDT Bari Toscano MD CHEMISTRY Final Result Performing Organization Address [facility] [address] [facility]/ZIP Co de Phone Number [facility] [address] [place] [address], [place] [phone] [facility] [address] [place] [address], [place] [phone] * VITAMIN B12 (11/21/2024 8:12 AM CDT) VITAMIN B12 658 200 - 1100 pg/mL 11/22/2024 6:04 AM CDT [facility] Blood BLOOD SPECIMEN / Unknown [facility] / Unknown 11/21/2024 8:12 AM CDT 11/21/2024 8:12 AM CDT Bari Toscano MD CHEMISTRY Final Result Performing Organization Address [facility] Co de Phone Number [facility] [address] [place] [address], [place] [phone] * SCAN-ELECTROENCEPHALOGRAM EEG INTERP (11/16/2024 12:00 AM CDT) Scanner OTHER Final Result from Last 3 Months Additional Health Concerns Active Problems Noted Date Diagnosed Date Autogenerated Problem 12/27/2024 Insurance * Guarantor: Enrike Coleman Account Type Relation to Patient Date of Phone Billing Address Personal/Family Self 1940 [address] [place] [address] MEDICARE PART A HB ONLY BLUE CROSS MEDICARE ADVANTAGE Advance Directives Documents on File Type Date Recorded Patient Antenna Installer Expl anation Healthcare Directive 02/10/2024 INVALID , MISSING PAGE, 02/10/2024 Power of Airframe And Powerplant Mechanic 10/19/1996 DURABLE PO WER OF BAG LOADER MACHINE OPERATOR FOR HEALTH CARE, [facility], 10/19/1996 Power of Airframe And Powerplant Mechanic 10/19/1996 STATUTORY SHORT FORM POWER OF BAG LOADER MACHINE OPERATOR, [facility], 10/19/1996 Healthcare Directive 03/04/1993 HEALTH CARE DECLARATION, [facility], 03/04/1993 * Full Code (Latest Code [...] 7:00 PM 04/07/2012 3:58 PM Care Teams Battalion Chief Relationship Specialty Start Date End Date Bari Toscano MD [address] [place] [id number] PCP - General Family Practice 08/14/13 [facility] Baird [facility] [place]opedics 09/09/12 Rocael Gamez [address] [place] [address] Ophthalmology Surgery 09/09/12 [place] [address] [place] [address] Rheumatology 03/07/24
--- OUTSIDE RECORDS SUMMARY | 2024-12-28 04:47 | XMS_ITS | Data Portability ---
Author Organization [place] [facility] Address [address] [facility] [address] [place] [address] Care Team Providers Care Registry Rn Name Role Phone LINDSAY SANFORD Referring Provider [...] [email or web address] ro [facility], [address], [place], [address], 12/26/2024 14:05:06 cultur e, urine 2024 025 [facility], [address], [place], [address], 12/26/2024 15:28:33 PSA, serum or plasma 2024 025 [email or web address] ro [facility], [address], [place], [address], 12/05/2024 12:15:11 PSA, total, serum or plasma 2024 025 [email or web address] [facility], [address] [facility], [place], [address], 12/05/2024 13:23:25 urinal ysis, dipsti ck 2024 025 [email or web address] [facility], [address], [place], [address], 11/10/2024 11:19:26 cultur e, urine 2024 025 [facility], [address] [facility], [place], [address], 11/11/2024 10:45:08 cultur e, urine 2024 025 [facility], [address] [facility], [place], [address], 09/28/2024 11:28:22 PSA, serum or plasma 2024 025 [facility], [address], [place], [address], 05/30/2024 13:17:58 PSA, total, serum or plasma [email or web address] [place] [address] Lab, [address] [facility], [place], [address], 05/30/2024 14:27:38 Referral None record ed. Procedures None record ed. Surgeries cystos copy (SURG) 2024 025 [email or web address] Not available 12/27/2024 15:49:[address], urogra m - PLEASE CALL PT TO SCHEDU LE 2024 025 [facility], [address] [facility], [place], [address], 12/13/2024 11:02:23 Medication Orders tadala maureen 5 mg tablet 2024 025 [facility], [address] [place], [address], 12/05/2024 14:50:32 Patient TargetsNo targets recorded. Patient InstructionsNo instructions recorded. Reason for Referral None Reported. Results Created Date Observation Date Name Description Value Unit Range Abnormal Flag Note LastModifiedBy Organization Detail LastModifiedTime 05/31/19 25 05/30/2024 PSA, serum or plasm a PSA 10.3 0-4.0 NG/mL Not Available [facility] [address], [place], [address], 05/30/2024 12:41:42 09/26/1909/25/2024 URINE CULTU RE final report MICROB IOLOGY RESULT S SOURC E Void KNOWN ALLER GIES nkda TREAT MENT none MEDIA PLATE D AT: Media plate d on 2024 @ 4:46 PM COLON Y COUNT 50,00 0-100 ,000 cfu/m l RESUL T Rhodo coccu s equi (Isol ate 1) Susce ptibl ity Testi ng not perfo rmed, usual ly Susce ptibl e to Eryth romyc in, Rifam pin, Genta micin , Tobra mycin , Cipro floxa jaison, Vanco mycin , and Impen em (Isol ate 1) This lab resul t is being provi ded to you and your provi gricelda at the same time in compl iance with the Centu ry Cures Act. Your provi gricelda may not have had time to revie w and make recom menda tions based on the resul t. Pleas e allow up to one week for provi gricelda revie w. Not Available [facility] [address] [facility] [address], [place], [address], 09/28/2024 11:28:22 11/11/1911/10/2024 URINE CULTU RE final report MICROB [...] recom menda tions based on the resul tMiah persaud allow up to one week for provi gricelda revie w. Not Available [facility] [address], [place], [address], 11/11/2024 10:45:08 11/11/1911/10/2024 urina lysis , dipst ick BLOOD Large (250 RBC/uL ) Not Available [facility] [address], [place], [address], 11/10/2024 11:17:20 11/11/19 25 11/10/2024 urina lysis , dipst ick NITRITES Negati ve Not Available [facility] [address], [place], [address], 11/10/2024 11:17:20 11/11/19 25 11/10/2024 urina lysis , dipst ick LEUKOCYTES Small (25 WBC/uL ) Not Available [facility] [address], [place], [address], 11/10/2024 11:17:20 12/06/19 25 12/05/2024 PSA, serum or plasm a PSA 13.7ng /mL 0-4.0 NG/mL Not Available [facility] [address], [place], [address], 11/22/2024 15:45:12 12/27/19 25 12/26/2024 urina lysis , dipst ick BLOOD Large (250 RBC/uL ) Not Available [facility] [address], [place], [address], 12/26/2024 14:04:23 12/27/19 25 12/26/2024 urina lysis , dipst ick BILIRUBIN Negati ve Not Available [facility] [address], [place], [address], 12/26/2024 14:04:23 12/27/19 25 12/26/2024 urina lysis , dipst ick UROBILINOGEN 0.2 mg/dL (Norm) Not Available [facility] [address], [place], [address], 12/26/2024 14:04:23 12/27/19 25 12/26/2024 urina lysis , dipst ick KETONES Negati ve Not Available [facility] [address], [place], [address], 12/26/2024 14:04:23 12/27/19 25 12/26/2024 urina lysis , dipst ick PROTEIN 100 mg/dL Not Available [facility] [address], [place], [address], 12/26/2024 14:04:23 12/27/19 25 12/26/2024 urina lysis , dipst ick NITRITES Negati ve Not Available [facility] [address], [place], [address], 12/26/2024 14:04:23 12/27/19 25 12/26/2024 urina lysis , dipst ick GLUCOSE >2000 mg/dL Not Available [facility] [address], [place], [address], 12/26/2024 14:04:23 12/27/19 25 12/26/2024 urina lysis , dipst ick p.H. 5.0 Not Available [facility] [address], [place], [address], 12/26/2024 14:04:23 12/27/19 25 12/26/2024 urina lysis , dipst ick S.G. (Specific Mcroberts) 1.025 Not Available [facility] [address], [place], [address], 12/26/2024 14:04:23 12/27/1912/26/2024 urina lysis , dipst ick LEUKOCYTES Small (25 WBC/uL ) Not Available [facility] [address], [place], [address], 12/26/2024 14:04:23 12/14/1912/12/2024 CT, urogr am No observ ation record ed. [facility] [address], [place], [address], 12/18/2024 14:28:50 Result Notes None recorded. Procedures Surgical History Date Name Laterality Status Provider Name and Address Organization Details Recorded Time 5 Cystoscopy- male completed Louis Cook MD [address] [place] [address],[address], [place], [address], [facility] 12/26/2024 19:09:00 5 Keflex post Cysto completed Carlos Enrique falcon [facility] 12/26/2024 13:31:05 5 Urinalysis completed Carlos Enrique falcon [facility] 12/26/2024 13:30:59 5 TREE WARDEN/blood draw completed Carlos Enrique falcon [facility] 12/05/2024 12:14:49 5 Bladder Scan completed Louis Cook MD [address] [place] [address],[address], [place], [address], [facility] 12/05/2024 12:32:40 5 Urine Culture completed Meli Rowan [facility] 11/10/2024 11:16:59 5 Urinalysis completed Meli Rowan [facility] 11/10/2024 11:16:57 5 Urine Culture completed Anastasiia Ingram [facility] 09/25/2024 12:27:34 5 Urinalysis completed Anastasiia Ingram [facility] 09/25/2024 11:46:34 5 Bladder Scan completed Anastasiiahuy Ingram [facility] 09/25/2024 11:46:26 5 Blood Draw/TREE WARDEN/PSA RESULTS completed Louis Cook MD [address] [place] [address],[address], [address], [facility] 05/30/2024 12:41:37 4 Blood Draw/TREE WARDEN/PSA RESULTS completed Carlos Enrique falcon [facility] 10/11/2023 10:18:27 3 Heart Surgery completed Louis Cook MD [address] [place] [address],[facility] [address], [place], [address], [facility] 09/28/2022 16:37:35 procedure on spine completed Louis Cook MD [address] [place] [address],[address], [place], [address], [facility] 09/28/2022 16:37:23 Imaging Results None recorded. Procedure [...] Updated DateTime 05/30/2024 175.26 cm 31 kg/m2 53944.4 g Louis Cook MD [address] [place] [address], [address] [place] [address] [facility] 05/30/2024 12:38:02 Date Recorded Body height Body mass index (BMI) Body weight Provider Name and Address Organization Details Last Updated DateTime 09/25/2024 175.26 cm 31 kg/m2 69346.4 g Anastasiia Ingram [facility] 09/25/2024 11:45:48 Date Recorded Body height Body mass index (BMI) Body weight Provider Name and Address Organization Details Last Updated DateTime 12/05/2024 175.26 cm 31 kg/m2 86252.4 g Louis Cook MD [address] [place] [address],[address], [address] [place] [address] [facility]rology 12/05/2024 12:32:21 Social History Question Answer Notes LastModified by Organizat ion Details LastModified Time Tobacco Smoking Status Former Smoker Louis Cook MD [address] [place] [address],[address], [address] [place] [address] Urology 09/28/2022 16:37:00 What Is Your Level [...] quadrivalent, PF 3 completed Louis Cook MD [address] [place] [address],[address], [address], [facility] 04/26/2023 10:59:30 RSV, recombinant, protein subunit RSVpreF, adjuvant reconstituted, 0.5 mL, PF 3 completed Louis Cook MD [address] [place] [address],[address], [address], [facility] 04/26/2023 10:59:31 COVID-19, mRNA, LNP-S, PF, 50 mcg/0.5 mL 3 completed Louis Cook MD [address] [place] [address], [address], [facility] 04/26/2023 10:59:31 COVID-19, mRNA, LNP-S, PF, 50 mcg/0.5 mL 4 completed Not Available [facility] 12/26/2024 13:30:47 COVID-19, mRNA, LNP-S, PF, 50 mcg/0.5 mL 4 completed Not Available [facility] 12/26/2024 13:30:47 Influenza, adjuvanted, trivalent, PF 4 completed Not Available [facility] 12/26/2024 13:30:47 COVID-19, mRNA, LNP-S, PF, 50 mcg/0.5 mL 5 completed Not Available [facility] 12/26/2024 13:30:47 IPV 2 completed Susana Allar null, [facility] 01/25/2023 09:28:19 Influenza, adjuvanted, trivalent, PF 7 completed Susana Allar null, [facility] 01/25/2023 09:28:19 Influenza, adjuvanted, trivalent, PF 9 completed Susana Allar null, [facility] 01/25/2023 09:28:19 Influenza, adjuvanted, trivalent, PF 8 completed Susana Allar null, [facility] 01/25/2023 09:28:19 zoster recombinant 0 completed Susana Allar null, [facility] 01/25/2023 09:28:19 zoster recombinant 9 completed Susana Allar null, [facility] 01/25/2023 09:28:19 Influenza, adjuvanted, quadrivalent, PF 0 completed Susana Allar null, [facility] 01/25/2023 09:28:19 Influenza, adjuvanted, quadrivalent, PF 2 completed Susana Allar null, [facility] 01/25/2023 09:28:19 Influenza, adjuvanted, quadrivalent, PF 1 completed Susana Allar null, [facility] 01/25/2023 09:28:19 COVID-19, mRNA, LNP-S, PF, 100 mcg/0.5mL dose or 50 mcg/0.25mL dose 1 completed Susana Allar null, [facility] 01/25/2023 09:28:19 COVID-19, mRNA, LNP-S, PF, 100 mcg/0.5mL dose or 50 mcg/0.25mL dose 1 completed [facility] null, [facility] 01/25/2023 09:28:19 COVID-19, mRNA, LNP-S, PF, 100 mcg/0.5mL dose or 50 mcg/0.25mL dose 1 completed Susana Allar null, [facility] 01/25/2023 09:28:19 Pneumococcal conjugate PCV20, polysaccharide [id number] conjugate, adjuvant, PF 3 completed Susana Allar null, [facility] 01/25/2023 09:28:19 COVID-19, mRNA, LNP-S, PF, 30 mcg/0.3 mL dose, octavia-sucrose 2 completed Susana Allar null, [facility] 01/25/2023 09:28:19 COVID-19, mRNA, LNP-S, bivalent, PF, 50 mcg/0.5 mL or 25mcg/0.25 mL dose 3 completed Susana Allar null, [facility] 01/25/2023 09:28:19 COVID-19, mRNA, LNP-S, bivalent, PF, 50 mcg/0.5 mL or 25mcg/0.25 mL dose 2 completed Susana Allar null, [facility] 01/25/2023 09:28:19 pneumococcal polysaccharide PPV23 6 completed Susana Allar null, [facility] 01/25/2023 09:28:19 pneumococcal polysaccharide PPV23 6 completed Susana Allar null, [facility] 01/25/2023 09:28:19 Tdap 1 completed Susana Allar null, [facility] 01/25/2023 09:28:19 Tdap 1 completed Susana Allar null, [facility] 01/25/2023 09:28:19 Pneumococcal conjugate PCV 13 5 completed Susana Allar null, [facility] 01/25/2023 09:28:19 yellow fever live 2 completed Susana Allar null, [facility] 01/25/2023 09:28:19 yellow fever live 1 completed Susana Allar null, [facility] 01/25/2023 09:28:19 zoster live 7 completed Susana Allar null, [facility] 01/25/2023 09:28:19 Influenza, high-dose, trivalent, PF 4 completed Susana Allar null, [facility] 01/25/2023 09:28:19 Influenza, high-dose, trivalent, PF 6 completed Susana Allar null, [facility] 01/25/2023 09:28:19 Influenza, high-dose, trivalent, PF 5 completed Susana Allar null, [facility] 01/25/2023 09:28:19 Influenza, split virus, trivalent, preservative 2 completed Susana Allar null, [facility] 01/25/2023 09:28:19 Influenza, split virus, trivalent, preservative 1 completed Susana Allar null, [facility] 01/25/2023 09:28:19 Influenza, split virus, trivalent, preservative 6 completed Susana Allar null, [facility] 01/25/2023 09:28:19 Influenza, split virus, trivalent, preservative 4 completed Susana Allar null, [facility] 01/25/2023 09:28:19 Influenza, split virus, trivalent, preservative 3 completed Susana Allar null, [facility] 01/25/2023 09:28:19 Influenza, split virus, trivalent, preservative 0 completed Susana Allar null, [facility] 01/25/2023 09:28:19 Influenza, split virus, trivalent, preservative 7 completed Susana Allar null, [facility] 01/25/2023 09:28:19 Influenza, split virus, trivalent, preservative 5 completed Susana Allar null, [facility] 01/25/2023 09:28:19 Td (adult), 5 Lf tetanus toxoid, preservative free, adsorbed 5 completed Susana Allar null, [facility] 01/25/2023 09:28:19 typhoid, ViCPs 2 completed Susana Allar null, [facility] 01/25/2023 09:28:19 typhoid, ViCPs 1 completed Susana Allar null, [facility] 01/25/2023 09:28:19 Hep A-Hep B 2 completed Susana Allar null, [facility] 01/25/2023 09:28:19 Hep A-Hep B 2 completed Susana Allar null, [facility] 01/25/2023 09:28:19 Hep A-Hep B 2 completed Susana Allar null, [facility] 01/25/2023 09:28:19 Past Encounters Encounter ID Performer Location Encounter Start Date Encounter Closed Date Diagnosis/Indication Diagnosis SNOMED-CT Code Diagnosis ICD10 Code Diagnosis IMO Codes Diagnosis Note [id number] MD LUIS ANGEL [facility] [address] [place] [address] 09/28/2022 16:22:42 10/02/2022 13:32:27 Malignant neoplasm of prostate 819161165 C61 1. Prostate cancer- cT1c - [place] 3+3 = 6 - on expectant management - PSA increased (11.80) - has fluctuated over the years- recheck PSA in November ([facility])- if PSA increases - check Prostate MRI and recommend TRUS bx Lower urin robbin tract symptoms due to benign prostatic hypertrophy 1083389502 9101 N40.1 2. BPH- voiding okay- continue Flomax 0.4 mg daily [id number] MD LUIS ANGEL [facility] [address] [place] [address] 04/26/2023 10:54:45 04/26/2023 12:03:27 Malignant neoplasm of prostate 089243733 C61 1. Prostate cancer- cT1c - [place] 3+3 = 6 - on expectant management - PSA (9.08) - decreased has fluctuated over the years- recheck PSA in September ([facility])(if PSA increases significan t - check Prostate MRI and recommend TRUS bx Lower urin robbin tract symptoms due to benign prostatic hypertrophy 5948410449 9101 N40.1 2. BPH- voiding okay- continue Flomax 0.4 mg daily [id number] Louis Cook MD [facility] [address] 10/11/2023 09:43:36 10/12/2023 08:25:39 Malignant neoplasm of prostate 438282573 C61 1. Prostate cancer- cT1c - [place] 3+3 = 6 - on expectant management - PSA (10.5) - decreased has fluctuated over the years- Follow-up in 6 months with PSA(if PSA increases significan t - check Prostate MRI and recommend TRUS bx Lower urin robbin tract symptoms due to benign prostatic hypertrophy 3124046515 9101 N40.1 2. BPH- voiding okay- continue Flomax 0.4 mg daily [id number] Louis Cook MD [facility] [address] 05/30/2024 12:07:44 06/02/2024 12:10:13 Malignant neoplasm of prostate 125120587 C61 1. Prostate cancer- cT1c - [place] 3+3 = 6 - on expectant management - PSA (103) - decreased has fluctuated over the years- Follow-up in 6 months with PSA(if PSA increases significan t - check Prostate MRI and recommend TRUS bx Lower urin robbin tract symptoms due to benign prostatic hypertrophy 9955975499 9101 N40.1 H/O BPH- voiding okay- continue Flomax 0.4 mg daily- check Bladder scan at Follow-up Increased frequency of urination 141691980 R35.0 2. Urinary frequency- his symptoms correlate with his use of Lasix [id number] ANTOINE RAMOS PA-C [facility] [address] [address] 09/25/2024 11:07:09 10/02/2024 12:08:22 Malignant neoplasm of prostate 844640715 C61 1. Prostate cancer- cT1c - [place] 3+3 = 6 - on expectant management - PSA (103) - decreased has fluctuated over the years- Follow-up as scheduled in November with PSA per Dr Cook(if PSA increases significan t - check Prostate MRI and recommend TRUS bx Increased frequency of urination 943151270 R35.0 2. Urinary frequency and urgency- improved since stopping Lasix and tapering steroid Lower urin robbin tract symptoms due to benign prostatic hypertrophy 3971802340 9101 N40.1 H/O BPH- voiding okay- continue Flomax 0.4 mg daily- PVR 162 ml today Urgent maribel ameya to urinate 20968916 R39.15 446182 Most bothered by urgency / urge incontinen ceAfter must discussion , will trial PRN Gemtesa for days he goes out -- use sparinglyD iscussed expectatio ns, risk of UTIs and difficulty urinating -- low threshhold to discontinu e Gemtesa if not tolerating .Check PVR at next visit -- he will take Gemtesa that morning Will check urine culture today to r/o UTI [id number] ANTOINE RAMOS PA-C [facility] [address] [place] [address] 11/10/2024 10:42:48 11/17/2024 15:53:02 Urinary symptoms 920745203 R39.9 [id number] Louis Cook MD [facility] [address] [place] [address] 12/05/2024 12:10:36 12/07/2024 11:21:36 Malignant neoplasm of prostate 330050390 C61 1. Prostate cancer- cT1c - [place] 3+3 = 6 - on expectant management - PSA (13.7) - increased - has fluctuated over the years- Follow-up in 3 months with PSA(if PSA increases significan t - check Prostate MRI and recommend TRUS bx Increased frequency of urination 034773014 R35.0 2. Urinary frequency- he is off Lasix- incomplete emptying (188 mL)- stop Gemtesa 75 mg daily Lower urin robbin tract symptoms due to benign prostatic hypertrophy 2463844113 9101 N40.1 4. BPH- high PVR = 188 mL- continue Flomax 0.4 mg daily- add Cialis 5 mg daily- check Bladder scan at Follow-up Microscopic hematuria 19 9286737 R31.29 [id number] 3. Microscopi c hematuria- check CT Urogram- will need Cystoscopy in near future [id number] Louis Cook MD [facility] [address] [facility] [address] 12/26/2024 13:28:42 12/26/2024 19:09:48 Malignant neoplasm of prostate 826230396 C61 2. Prostate cancer- cT1c - [place] 3+3 = 6 - on expectant management - PSA (13.7) - increased - has fluctuated over the years- Follow-up in 3 months with PSA(if PSA increases significan t - check Prostate MRI and recommend TRUS bx Increased frequency of urination 654277430 R35.0 H/O Urinary frequency- he is off Lasix- incomplete emptying (188 mL)- stopped Gemtesa 75 mg daily Microscopic hematuria 19 9229198 R31.29 599909 1. Microscopi c hematuria- CT Urogram (12/12/24) [...] tract symptoms due to benign prostatic hypertrophy 6376732776 9101 N40.1 3. BPH- last PVR = 188 mL- continue Flomax 0.4 mg daily- continue Cialis 5 mg daily- check Bladder scan at Follow-up Multiple n odules of lung 808742147 R91.8 [id number] 4. Pulmonary nodules- CT Urogram (12/12/24) - [...] Recorded Advance Directives Directive None Recorded Payers Insurance Date Sequence Insurance Name Policy Number Policy Sam Covered Member ID Sam Member ID Guarantor Name 12/23/2024 1 [place] [id number] Enrike Coleman [id number] Enrike Hernandez Coleman 04/17/2024 1 [place] [employer] Enrike Hernandez Coleman [id number] Enrike Hernandez [place] 04/17/2024 1 [place] [id number] Enrike Coleman [id number] Enrike Coleman Notes Date Note Type Note [...] underwent MRI bx (10/31/14) of lesion at [facility] - benign. No family H/O prostate [...] 11.80 (09/15/22)- 9.08 (04/16/23) Louis Cook MD [address] [place] [address],[address], [place], [address], [facility] 05/30/2024 14:19:00 09/25/2024 text/html 84 yo male with history of A.fib (on Eliquis), HTN, DM, memory loss, BPH, and Prostate cancer - T1c - [place] 3+3 = 6 - involving 1/10 cores (< 5%) on Left - TRUS bx (12/15/12) by Dr. Herrera - on expectant management. Prostate MRI (2014) revealed a PI-RADS 2 lesion - underwent MRI bx (10/31/14) of lesion at [facility] - benign. No family H/O prostate [...] the day and 1-2x/night.- PSA - 10.3 09/25/24 ([facility]) - He presents for worsening [...] is also on Jardiance, denies h/o UTIs. UA +2000 glucose, 25 LE, 50 BLDPVR 162 ml ____PSA - 6.85 (09/09/12) - 10.5(10/11/23)- 7.13 (09/26/12) - 10.3 (05/30/24)- 6.52 (10/07/12)- 8.67 (09/12/14)- 7.44 (04/09/15)- 7.21 (10/16/15)- 7.64 (10/01/16)- 6.74 (03/10/17)- 6.91 (02/11/18)- 10.96 (11/14/18)- 7.53 (02/16/19)- 6.51 (03/07/20)- 9.21 (11/13/20)- 8.30 (06/09/21)- 11.80 (09/15/22)- 9.08 (04/16/23)- 10.3 (05/30/24) ANTOINE RAMOS PA-C [address] [place] [address],[address], [place], [address], [facility] 09/25/2024 13:01:31 11/10/2024 text/html Bill is here for UA/UC and PVR- see triage note for Sx detailsNurse visit completed by Meli Sanchez RN. Meli [place] - [facility] 11/10/2024 11:19:56 12/05/2024 text/html 84 yo male with history of A.fib (on Eliquis), HTN, DM, memory loss, PMR, BPH, and Prostate cancer - T1c - [place] 3+3 = 6 - involving 1/10 cores (< 5%) on Left - TRUS bx (12/15/12) by Dr. Herrera - on expectant management. Prostate MRI (2014) revealed a PI-RADS 2 lesion - underwent MRI bx (10/31/14) of lesion at [facility] - benign. No family H/O prostate [...] hours during the day and 1-2x/night. 09/25/24 ([facility]) - He presents for worsening urge incontinence. [...] PVR = 188 mL- PSA - 13.7 PSA - 6.85 (09/09/12) - 10.5 (10/11/23)- 7.13 (09/26/12) - 10.3 (05/30/24)- 6.52 (10/07/12) - 13.7 (12/05/24)- 8.67 (09/12/14)- 7.44 (04/09/15)- 7.21 (10/16/15)- 7.64 (10/01/16)- 6.74 (03/10/17)- 6.91 (02/11/18)- 10.96 (11/14/18)- 7.53 (02/16/19)- 6.51 (03/07/20)- 9.21 (11/13/20)- 8.30 (06/09/21)- 11.80 (09/15/22)- 9.08 (04/16/23) Louis Cook MD [address] [facility] [address], [place], [address], [facility] 12/05/2024 13:50:09 12/26/2024 text/html 84 yo male with history of A.fib (on Eliquis), HTN, DM, memory loss, PMR, BPH, and Prostate cancer - T1c - [place] 3+3 = 6 - involving 1/10 cores (< 5%) on Left - TRUS bx (12/15/12) by Dr. Herrera - on expectant management. Prostate MRI (2014) revealed a PI-RADS 2 lesion - underwent MRI bx (10/31/14) of lesion at [facility] - benign. No family H/O prostate [...] Right medial lower lobe Louis Cook MD [address] [facility],[address], [place], [address], [place] [facility] 12/26/2024 19:09:44
--- OUTSIDE RECORDS SUMMARY | 2024-12-28 04:47 | XMS_ITS | Clinical Summary ---
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 [facility] Allergies No known active allergies Medications metFORMIN [...] Comments Medicare Annual Wellness Visit 1940 DTaP/Tdap/Td Vaccine (1 - Tdap) 1957 Pneumococcal Vaccine 50+ Yrs (1 of 1 - PCV) 02/21/1988 Zoster/Shingles Vaccine (1 of 2) 02/21/1988 RSV Vaccine (1 - 1-dose 75+ series) 2013 COVID-19 Vaccine (2023-2 5 season) 2024 Influenza Vaccine (#1) 2024 HepA Vaccine Aged Out No longer eligi ble based on patient's age to complete this topic HepB Vaccine Aged Out No longer eligi ble based on patient's age to complete this topic Hib Vaccine Aged Out No longer eligi ble based on patient's age to complete this topic IPV (Polio) Vaccine Aged Out No longe r eligible based on patient's age to complete this topic MCV4 Vaccine Aged Out No longer eligi ble based on patient's age to complete this topic Meningococcal B Vaccine Aged Out No l onger eligible based on patient's age to complete this topic Insurance MEDICARE BCBS MEDICARE SUPPLEMENT
--- OUTSIDE RECORDS SUMMARY | 2024-12-28 04:47 | XMS_ITS | Data Portability ---
Author Organization [place] - [facility], [employer] Address [address] [place] [address] Care Team Providers Care Detective Name Role Phone LINDSAY TOSCANO Primary Care Provider Assessment Encounter Date Assessment Date Assessment LastModified by Organization Details LastModified Time 07/05/2024 07/05/2024 For diabetes with peripheral neuropathy, recommended continued use of diabetic shoes and custom inserts to reduce risk of injury and ulceration. Emphasized the importance of wearing protective footwear at all times, especially indoors, to prevent trauma given decreased sensation. Scheduled routine podiatric follow-up every three months for nail and skin care, with instructions to call sooner if any wounds, blisters, or concerning changes develop. Clinical reasoning: Patient has established neuropathy and is at increased risk for foot complications; regular monitoring and education are essential. For onychomycosis, performed nail debridement to reduce thickness and improve comfort. Advised continued monitoring for signs of tinea pedis recurrence. No additional antifungal therapy indicated at this time as there is no active infection. For recent trauma to the left hallux and second toe, no open wounds or signs of infection are present. Advised to monitor for changes such as increased pain, redness, swelling, or drainage. For hammer toe deformity, recommended continued use of accommodative footwear and inserts. Procedures Nail debridement: Toenails 1-5 bilateral were debrided in length and thickness by manual and mechanical means (nippers) without incident. [email or web address] Not available 07/05/2024 11:12:02 10/11/2024 10/11/2024 Procedures Nail debridement: Toenails 1-5 bilateral were debrided in length and thickness by manual and mechanical means (nippers) without incident. kimi Not available 10/11/2024 15:47:58 Plan of Treatment Reminders Order Date Submit Date Provider Last Modified By Organization Details Last Modified Time Details Appointments [facility] 15 2024 03:30P M ANDREW GARCIA DPM Not available Not available Not available Lab None recorded. Referral None recorded. Procedures debrideme nt of nail(s) (PROC) 2024 025 [id number] Not available 12/16/2024 03:49:59 debrideme nt of nail(s) (PROC) 2024 025 [id number] Not available 09/16/2024 03:59:05 Surgeries None recorded. Imaging None recorded. Medication Orders None recorded. Patient TargetsNo targets recorded. Patient InstructionsNo instructions recorded. Reason for Referral None Reported. Medical Equipment None Reported. Allergies No known drug allergies Medications Name Sig Start Date Stop Date Status Note LastModified by Organization Details LastModified Time fluconazole 100 mg tablet TAKE 2 TABLETS (200 MG) BY MOUTH ONCE DAILY FOR 10 DAYS. active Not Available Not Available No t Available terbinafine HCl 1 % topical cream APPLY TOPICALLY TO AFFECTED AREA(S) TWO TIMES DAILY. active Not Available Not Available No t Available prednisone 10 mg tablet TAKE ONE TO ONE AND ONE-HALF TABLETS (10-15 MG) BY MOUTH ONCE DAILY WITH A MEAL. active Not Available Not Available No t Available glipizide ER 10 mg tablet, extended release 24 hr TAKE 1 TABLET (10 MG) BY MOUTH ONCE DAILY BEFORE A MEAL. active Not Available Not Available No t Available isosorbide mononitrate ER 30 mg tablet,exte nded release 24 hr TAKE 1 TABLET (30 MG) BY MOUTH ONCE DAILY. active Not Available Not Available No t Available prednisone 5 mg tablet TAKE 1 TABLET (5 MG) BY MOUTH ONCE DAILY WITH A MEAL. active Not Available Not Available No t Available glipizide ER 5 mg tablet, extended release 24 hr TAKE 3 TABLETS (15 MG) BY MOUTH ONCE DAILY BEFORE A MEAL. active Not Available Not Available No t Available ciprofloxac in 500 mg tablet TAKE ONE TABLET BY MOUTH EVERY 12 HOURS FOR 5 DAYS active Not Available Not [...] Available Not Available No t Available prednisone 1 mg tablet TAKE 9 TABLETS (9 MG) BY MOUTH DAILY FOR TWO WEEKS, THEN IF TOLERATED REDUCE BY 1 TABLET (1 MG) EVERY TWO WEEKS. active Not Available Not Available No t Available cephalexin 500 mg capsule TAKE 1 CAPSULE (500 MG) BY MOUTH FOUR TIMES DAILY FOR 10 DAYS. 07/05 completed Not Available Not Available Not Available [...] Not Available Not Available No t Available furosemide 20 mg tablet TAKE 2 [...] TABLET (0.5MG) AFTER 30 TO 60 MINUTES active Not Available Not Available No t Available metformin ER 500 mg tablet,exte nded release 24 hr TAKE 4 TABLETS (2,000 MG) BY MOUTH ONCE DAILY WITH EVENING MEAL. active Not Available Not Available No t Available rosuvastati n 20 mg tablet TAKE [...] and Address Organization Details Last Updated DateTime 07/05/2024 172.72 cm 30 kg/m2 49621.7 g Meseret Kang [place] - [facility] 07/05/2024 10:12:28 Social History None recorded. Functional Status None recorded. Mental Status None recorded. Family History Nothing Reported. Medical History No medical history recorded. 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 809978965 B35.1 58995 Ingrowing nail 473293390 L60.0 999 Pain in toe 913875390 M7 9.674 M79.675 G89.29 [id number] Acquired h allux malleus 34229050 M20.40 [id number] ANDREW GARCIA DPM [facility] [address] [place] [address] [phone] 4 10/11/2024 14:48:45 10/11/2024 17:14:00 Polyneuropathy due to type 2 diabetes mellitus 456175046 E11.42 [id number] 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 662486364 B35.1 68918 Ingrowing nail 727352805 L60.0 999 Pain in toe 133970780 M7 9.674 M79.675 G89.29 [id number] Acquired h allux malleus 42891378 M20.40 [id number] Health Concerns Section Related Observation LastModified by Organization Detai ls LastModified Time None Recorded Concern Status LastModified by Organization Details LastModified Time None Recorded Advance Directives Directive None Recorded Payers Insurance Date Sequence Insurance Name Policy Number Policy Sam Covered Member ID Sam Member ID Guarantor Name 10/08/2024 1 [facility]: (MEDICARE REPLACEMENT PPO) [id number] Enrike Coleman [id number] Enrike Coleman Notes Date Note Type Note Provider Name and Address Organization Details Recorded Time 07/05/2024 text/html The patient presents as a new patient for podiatric evaluation. He reports a history of diabetes, with his last A1C at 6.9, managed by his primary care provider, Dr. Toscano who he saw on 06/21/24. He expresses that his feet have been in poor condition for some time. He notes a long-standing history of u gly toenails. He denies any current wounds but is concerned about nail appearance and general foot health. He mentions a prior fungal infection between the toes, which was treated with a three-week course of oral antifungal medication, resulting in improvement. He occasionally experiences itching on his feet, sometimes severe enough to cause bleeding, but has not had itching recently since the medication. He acknowledges a history of decreased sensation in his feet, particularly in the toes, and is aware of the risk of neuropathy. He has been advised by his primary care provider to always wear slippers or shoes indoors to prevent injury, though he admits to sometimes forgetting. He owns diabetic shoes and custom inserts but has not worn them consistently. ANDREW GARCIA DPM [address] [place], [address], [facility] 07/05/2024 11:12:26 10/11/2024 text/html The patient was seen today with a chief complaint of painful thickened and elongated toenails for which the patient has been unable to care on their own. Notes the thickness and ingrown corners that cause pain with pressure and shoegear use. At this time, there are no other pedal complaints. Last seen Dr. Toscano on 10/11/24 ANDREW GARCIA DPM [address] [place], [address], [facility] 10/11/2024 15:48:11
--- NOTE | 2024-12-28 04:56 | ED.FEVER ---
HPI - Fever General Time Seen by Provider: 04:56 Date Seen: 12/28/24 Chief Complaint: Fever Stated Complaint: fever Time Seen by Provider: 12/28/24 04:56 Source: patient, family () and EMS Mode of arrival: EMS History of Present Illness HPI Narrative: Enrike is a 84 yo male who presents to the ED from home by EMS for evaluation of fever. is at bedside providing additional history. 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 notes that he has been following up with Urology, had CT scan which demonstrated thickened bladder, enlarged prostate, as well as urinalysis with cloudy and bloody urine. Patient had cystoscopy on Wednesday which demonstrated sediment. states she gave him 1 dose of Keflex after procedure. Is otherwise not currently on antibiotics. notes that yesterday on Wednesday he had lunch with a friend and then after that he was tired and took a 2 hour nap. Also states went to bed around 8:00 p.m. and then woke up this morning around 2:00 a.m. with a fever. notes fever of 103 at home. Reports giving him 1300 mg of timed release Tylenol around 0200 am and sent him in for evaluation. denies any recent illnesses, rhinorrhea, cough, denies any chest pain, shortness of breath, abdominal pain, nausea, vomiting, diarrhea. Patient with 1 skin tear to right upper extremity from his Eliquis, denies any other open wounds. No acute changes in mental status/confusion. Patient is scheduled for outpatient MRI today. No other complaints. Per chart review echocardiogram on 06/15/2024 with an ejection fraction approximately 45-50%. (Patient recently saw cardiology on 12/11/24). Per chart review patient had CT urogram on 12/12/24 - no renal masses, no hydronephrosis or filling defects. 3 (1mm) stones in right kidney, +diffuse bladder wall thickening and large prostate. Lung with small nodules - new 7mm nodule right medial lower lobe. 12/26/24 - patient followed up with Urology regarding hematuria, cystosopy performed Related Data Home Medications ?Medication ?Instructions ?Recorded ?Confirmed apixaban 5 mg tablet (Eliquis) 5 mg PO Q12H 02/15/22 12/28/24 blood sugar diagnostic (True 02/15/22 10/25/24 Metrix Glucose Test Strip) metformin 500 mg tablet,extended 2,000 mg PO DAILY 02/15/22 12/28/24 release 24 hr acetaminophen 500 mg capsule 500 mg PO Q6H PRN 07/27/23 12/28/24 cyanocobalamin (vitamin B-12) 1,000 mcg PO QDAY 07/27/23 10/25/24 1,000 mcg capsule tamsulosin 0.4 mg capsule 0.4 mg PO DAILY 07/27/23 12/28/24 empagliflozin 10 mg tablet 5 mg PO DAILY 02/24/24 12/28/24 (Jardiance) glipizide 10 mg tablet, extended 20 mg PO DAILY 02/24/24 12/28/24 release 24 hr metoprolol succinate 25 mg 12.5 mg PO DAILY 02/24/24 12/28/24 tablet,extended release 24 hr nitroglycerin 0.4 mg sublingual 0.4 mg sublingual Q5M PRN 02/24/24 12/28/24 tablet rosuvastatin 20 mg tablet 20 mg PO QPM 02/24/24 12/28/24 aspirin 81 mg capsule 81 mg PO DAILY 06/11/24 10/25/24 cholecalciferol (vitamin D3) 50 50,000 mcg PO .COMPLEX 10/25/24 10/25/24 mcg (2,000 unit) tablet (Vitamin D3) cholecalciferol (vitamin D3) 1,250 1,250 mcg PO Q7D 12/28/24 12/28/24 mcg (50,000 unit) capsule Allergies Allergy/AdvReac Type Severity Reaction Status Date / Time No Known Drug Allergies Allergy Verified 10/25/24 14:28 Review of Systems Narrative Past medical history, past surgical history, medications, allergies, family history, and social history were reviewed with the patient. No additional pertinent items. A medically appropriate review of systems was performed with pertinent positives and negatives noted in HPI, all other systems negative. [facility] Medical History BPH without urinary obstruction ?N40.0 - Benign prostatic hyperplasia without lower urinary tract symptoms (ICD-10) Mild cognitive impairment ?G31.84 - Mild cognitive impairment of uncertain or unknown etiology (ICD-10) Prostate cancer ?C61 - Malignant neoplasm of prostate (ICD-10) Mobitz (type) I (Wenckebach's) atrioventricular block ?I44.1 - Atrioventricular block, second degree (ICD-10) Atrial fibrillation ?I48.91 - Unspecified atrial fibrillation (ICD-10) Iron deficiency anemia ?D50.9 - Iron deficiency anemia, unspecified (ICD-10) Erectile dysfunction ?N52.9 - Male erectile dysfunction, unspecified (ICD-10) Displacement of lumbar intervertebral disc without myelopathy ?M51.26 - Other intervertebral disc displacement, lumbar region (ICD-10) Degeneration of lumbar or lumbosacral intervertebral disc ?M51.37 - Other intervertebral disc degeneration, lumbosacral region (ICD-10) Vitamin B12 deficiency ?E53.8 - Deficiency of other specified B group vitamins (ICD-10) Lumbar radiculopathy ?M54.16 - Radiculopathy, lumbar region (ICD-10) 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 - Complete traumatic metacarpophalangeal amputation of unspecified finger, initial encounter (ICD-10) Diabetes ?E11.9 - Type 2 diabetes mellitus without complications (ICD-10) COVID ?U07.1 - COVID-19 (ICD-10) Surgical History History of permanent cardiac pacemaker placement ?Z95.0 - Presence of cardiac pacemaker (ICD-10) History of cholecystectomy ?Z90.49 - Acquired absence of other specified parts of digestive tract (ICD-10) History of appendectomy ?Z90.49 - Acquired absence of other specified parts of digestive tract (ICD-10) History of arthroscopy of left shoulder (03/21/96) ?Z98.890 - Other specified postprocedural states (ICD-10) History of arthroscopy of right shoulder (11/26/11) ?Z98.890 - Other specified postprocedural states (ICD-10) S/P ORIF (open reduction internal fixation) fracture (04/05/14) ?Z98.890 - Other specified postprocedural states (ICD-10) ?Z87.81 - Personal history of (healed) traumatic fracture (ICD-10) Family History Mother Bowel cancer Social History Smoking Status: Former smoker Do you use any of these nicotine containing products: None Second hand tobacco smoke exposure: Yes How often do you have a drink containing alcohol: 4 or more times a week How many standard drinks containing alcohol do you have on a typical day: 1 or 2 AUDIT-C Alcohol total score: 4 Non-prescribed substance use: denies use Exam Narrative Exam Narrative: General: Febrile, no acute distress HEENT: Normocephalic, atraumatic, conjunctiva normal. Dry mucous membranes Neck: non-tender, supple Cardio: regular rate. regular rhythm Resp: Normal work of breathing, no respiratory distress, lungs clear bilaterally, no wheezing, rhonchi, rales Chest/Back: no visual signs of trauma, no midline tenderness, no CVA tenderness Abdomen: soft, non distension, no tenderness, no peritoneal signs Neuro: alert and fully oriented. CN II-XII grossly intact. Grossly normal strength and sensation in all extremities. MSK: no deformities. Normal range of motion Integumentary/Skin: no rash visualized, scattered ecchymosis on extremities Psych: normal affect, normal behavior Const Vital Signs, click to edit/add: Vital Signs - 24 hr 12/28/24 05:01 12/28/24 05:02 12/28/24 05:06 Temperature 100.7 F H 100.9 F H Pulse Rate Pulse Rate [Pulse Oximeter] 73 Pulse Rate [Right Pulse Oximeter] 74 Respiratory Rate 20 18 Blood Pressure Blood Pressure [Left Upper Arm] 109/55 L Blood Pressure [Right Upper Arm] 109/55 L Pulse Oximetry 85 L 85 L 85 L Oxygen Delivery Method Room Air Room Air Oxygen Flow Rate 12/28/24 05:06 12/28/24 05:07 12/28/24 05:31 Temperature 100.9 F H 99.8 F H Pulse Rate 72 Pulse Rate [Pulse Oximeter] Pulse Rate [Right Pulse Oximeter] Respiratory Rate 32 H Blood Pressure 106/56 L Blood Pressure [Left Upper Arm] Blood Pressure [Right Upper Arm] Pulse Oximetry 93 93 Oxygen Delivery Method Nasal Cannula Oxygen Flow Rate 3 12/28/24 06:02 12/28/24 06:31 12/28/24 06:32 Temperature Pulse Rate 70 70 70 Pulse Rate [Pulse Oximeter] Pulse Rate [Right Pulse Oximeter] Respiratory Rate 29 H 31 H 26 H Blood Pressure 98/54 L 93/49 L Blood Pressure [Left Upper Arm] Blood Pressure [Right Upper Arm] Pulse Oximetry 95 95 95 Oxygen Delivery Method Nasal Cannula Oxygen Flow Rate 3 12/28/24 06:45 12/28/24 06:45 12/28/24 07:00 Temperature Pulse Rate 70 70 Pulse Rate [Pulse Oximeter] Pulse Rate [Right Pulse Oximeter] Respiratory Rate 25 H 24 Blood Pressure Blood Pressure [Left Upper Arm] Blood Pressure [Right Upper Arm] Pulse Oximetry 96 95 95 Oxygen Delivery Method Nasal Cannula Oxygen Flow Rate 2 12/28/24 07:02 12/28/24 07:03 12/28/24 07:15 Temperature Pulse Rate 70 70 69 Pulse Rate [Pulse Oximeter] Pulse Rate [Right Pulse Oximeter] Respiratory Rate 27 H 28 H 28 H Blood Pressure 94/52 L Blood Pressure [Left Upper Arm] Blood Pressure [Right Upper Arm] Pulse Oximetry 95 96 96 Oxygen Delivery Method Oxygen Flow Rate 12/28/24 07:32 12/28/24 07:33 12/28/24 07:45 Temperature Pulse Rate Pulse Rate [Pulse Oximeter] Pulse Rate [Right Pulse Oximeter] Respiratory Rate 26 H 32 H Blood Pressure 112/62 Blood Pressure [Left Upper Arm] Blood Pressure [Right Upper Arm] Pulse Oximetry Oxygen Delivery Method Oxygen Flow Rate Course Vital Signs Vital signs: Initial Vital Signs Temperature 100.7 F H 12/28/24 05:01 Temperature Source Temporal Artery Scan 12/28/24 05:01 Pulse Rate 73 12/28/24 05:01 Respiratory Rate 20 12/28/24 05:01 Blood Pressure 109/55 L 12/28/24 05:01 Blood Pressure Mean 73 12/28/24 05:01 Blood Pressure Position Supine 12/28/24 05:01 Pulse Oximetry 85 L 12/28/24 05:01 Oxygen Delivery Method Room Air 12/28/24 05:01 Vital Signs Temperature 100.7 F H 12/28/24 05:01 Pulse Rate 73 12/28/24 05:01 Respiratory Rate 20 12/28/24 05:01 Blood Pressure 109/55 L 12/28/24 05:01 Pulse Oximetry 85 L 12/28/24 05:01 Oxygen Delivery Method Room Air 12/28/24 05:01 Temperature 99.8 F H 12/28/24 05:31 Pulse Rate 69 12/28/24 07:15 Respiratory Rate 32 H 12/28/24 07:45 Blood Pressure 112/62 12/28/24 07:32 Pulse Oximetry 96 12/28/24 07:15 Oxygen Delivery Method Nasal Cannula 12/28/24 06:45 Oxygen Flow Rate 2 12/28/24 06:45 Medications Administered Medications: Discontinued Medications Generic Name Dose Route Start Last Admin Trade Name Freq PRN Reason Stop Dose Admin Sodium Chloride 1,000 mls @ 1,000 mls/hr 12/28/24 05:15 12/28/24 05:15 0.9 % Sodium Chloride 1000 Ml IV 12/28/24 06:14 1,000 mls/hr .Q1H JACKIE Administration Ceftriaxone Sodium 1 gm/ 100 mls @ 200 mls/hr 12/28/24 06:18 12/28/24 06:35 Sodium Chloride IVPB 12/28/24 06:19 200 mls/hr ONCE ONE Administration MDM - Fever MDM Narrative Medical decision making narrative: Enrike is a 84 yo male who has a past medical history of past medical history of hypertension, type 2 diabetes, paroxysmal atrial fibrillation/flutter on chronic anticoagulation with Eliquis, coronary artery disease status post CABG x3, on 81mg aspirin daily, chronic heart failure with mildly reduced ejection fraction, 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 Upon arrival patient is ill appearing, febrile 100.7, no distress. Patient blood pressure 109/55, heart rate 73, respirations 20, oxygen 85% on room air. Patient was placed on 3 L nasal cannula with improvement of oxygenation 93%. Differential diagnosis includes but is not limited to viral illness versus bronchitis versus pneumonia versus UTI versus cystitis versus pyelonephritis versus cellulitis versus bacteremia versus sepsis among others. Upon arrival patient was placed a waste chopper in, EKG, comprehensive labs performed including blood culture, chest x-ray, urinalysis/culture. Patient was treated with a 500 mL IV fluid bolus due to history of congestive heart failure with reduced ejection fraction. Comprehensive labs remarkable with no leukocytosis white blood cell 6.85, hemoglobin 10.6 (prior 9.6), the to seem slightly low at 3.3, creatinine 1.0, glucose low at 38 (patient was treated with apple juice with improvement of blood glucose level to 65 as well as improvement in mental status). Normal lactate is 0.9, initial troponin just mildly elevated 0.05 goal will plan to repeat, BNP elevated a 8150. Urinalysis suggestive of infection with quality brown appearance, positive for lower in blood, leukocyte esterase, red blood cells, white blood cells. Given patient's recent instrumentation/cystoscopy, now with fever, patient treated with IV antibiotics ceftriaxone, concerns for urosepsis. I personally reviewed interpreted chest x-ray which demonstrates enlarged heart with no focal infiltrate lower significant pleural effusion. Viral testing negative for influenza/COVID. Unclear etiology of patient's hypoxia. Patient was placed on supplemental oxygen with improvement of symptoms. Plan to continue close monitor. No evidence of acute infection, concern for possible some fluid overload given congestive heart failure, elevated BNP. Patient with no upper respiratory symptoms or cough. I discussed patient management hospitalist at this time will plan on admission for further evaluation ongoing treatment for complicated urinary tract infection with concerns for urosepsis, hypoxia, hypoglycemia. Patient blood pressure on the lower side with systolic 95 however map remains greater than 65. Patient typically has lower blood pressure with systolic in the low 100s. Patient was given additional 500 mL IV fluid bolus for a total of 1 L IV fluid bolus. Did not give the full 30 mL/kilogram IV fluid bolus due to concern for fluid overload in history of congestive heart failure. Patient and family understand and agree with admission. Medical Records Attestation: I reviewed the patient's medical records. Lab Data Attestation: I reviewed the patient's lab results. Labs: Lab Results 12/28/24 12/28/24 12/28/24 Range/Units 04:45 05:20 05:51 WBC 6.85 (4.50-11.00) K/uL RBC 4.02 L (4.30-5.90) m/uL Hgb 10.6 L (13.5-17.5) gm/dL Hct 33.3 L (37.0-53.0) % MCV 83 (80-100) fL MCH 26 (26-34) pg MCHC 32 (32-36) gm/dL RDW Coeff of Ferny 15.7 H (11.5-15.5) % Plt Count 146 (140-440) K/uL Neut % (Auto) 87.0 H (42.0-72.0) % Lymph % (Auto) 5.3 L (20-44) % [place] % (Auto) 7.2 (0.0-11.0) % Eos % (Auto) 0.0 (0.0-7.0) % Baso % (Auto) 0.1 (0.0-3.0) % Neut # (Auto) 6.00 (1.7-7.0) K/uL Lymph # (Auto) 0.40 L (0.90-2.90) K/uL [place] # (Auto) 0.50 (0.00-0.90) K/UL Eos # (Auto) 0.00 (0.00-0.50) K/uL Baso # (Auto) 0.01 (0.00-0.30) K/uL Abs Immat Gran (auto) 0.03 (0.00-0.30) K/uL Imm/Tot Granulo (auto) 0.4 % Sodium 136 (135-149) mmol/L Potassium 3.3 L (3.6-5.1) mmol/L Chloride 108 (96-114) mmol/L Carbon Dioxide 19 L (20-32) mmol/L Anion Gap 9 (7-15) mEq/L BUN 25 (7-30) mg/dL Creatinine 1.0 (0.5-1.5) mg/dL Estimated Creat Clear 53.03 Estimated GFR 73 ml/min Glucose 38 L* (60-115) mg/dL Lactate 0.9 (0.5-1.9) mmol/L Calcium 8.9 (8.4-10.6) mg/dL Total Bilirubin 1.8 H (0.1-1.5) mg/dL AST 50 H (12-35) U/L ALT 18 (4-50) U/L Alkaline Phosphatase 77 (40-150) U/L Troponin I 0.05 H (0.01-0.04) ng/mL NT-Pro-B Natriuret Pep 8150 H (See Note) pg/mL Total Protein 6.0 (6.0-8.3) g/dL Albumin 3.3 (3.3-5.0) g/dL Urine Color Brown A (Yellow) Urine Appearance Cloudy A (Clear) Urine pH 6.0 (5.0-8.5) Ur Specific [place] 1.025 (1.000-1.030) Urine Protein 3+ A (Negative) Urine Glucose (UA) 2+ A (Negative) Urine Ketones Trace A (Negative) Urine Blood 3+ A (Negative) Urine Nitrite Negative (Negative) Urine Bilirubin 1+ A (Negative) Urine Urobilinogen 0.2 (0.2-1.0) Ur Leukocyte Esterase 1+ A (Negative) Urine RBC >100 A (0-2) Urine WBC >100 A (0-5) Ur Squamous Epith Cells Few (None-Few) Urine Bacteria Moderate A (None) Urine Yeast Moderate A (None) SARS-CoV-2 (PCR) Negative SARS-CoV-2 (Negative) Influenza Type A (PCR) Negative PCR FLU A (Negative) Influenza Type B (PCR) Negative PCR FLU B (Negative) RSV (PCR) Negative PCR RSV (Negative) POC Glucose (60-115) mg/dl 12/28/24 Range/Units 06:57 WBC (4.50-11.00) K/uL RBC (4.30-5.90) m/uL Hgb (13.5-17.5) gm/dL Hct (37.0-53.0) % MCV (80-100) fL MCH (26-34) pg MCHC (32-36) gm/dL RDW Coeff of Ferny (11.5-15.5) % Plt Count (140-440) K/uL Neut % (Auto) (42.0-72.0) % Lymph % (Auto) (20-44) % [place] % (Auto) (0.0-11.0) % Eos % (Auto) (0.0-7.0) % Baso % (Auto) (0.0-3.0) % Neut # (Auto) (1.7-7.0) K/uL Lymph # (Auto) (0.90-2.90) K/uL [place] # (Auto) (0.00-0.90) K/UL Eos # (Auto) (0.00-0.50) K/uL Baso # (Auto) (0.00-0.30) K/uL Abs Immat Gran (auto) (0.00-0.30) K/uL Imm/Tot Granulo (auto) % Sodium (135-149) mmol/L Potassium (3.6-5.1) mmol/L Chloride (96-114) mmol/L Carbon Dioxide (20-32) mmol/L Anion Gap (7-15) mEq/L BUN (7-30) mg/dL Creatinine (0.5-1.5) mg/dL Estimated Creat Clear Estimated GFR ml/min Glucose (60-115) mg/dL Lactate (0.5-1.9) mmol/L Calcium (8.4-10.6) mg/dL Total Bilirubin (0.1-1.5) mg/dL AST (12-35) U/L ALT (4-50) U/L Alkaline Phosphatase (40-150) U/L Troponin I (0.01-0.04) ng/mL NT-Pro-B Natriuret Pep (See Note) pg/mL Total Protein (6.0-8.3) g/dL Albumin (3.3-5.0) g/dL Urine Color (Yellow) Urine Appearance (Clear) Urine pH (5.0-8.5) Ur Specific [place] (1.000-1.030) Urine Protein (Negative) Urine Glucose (UA) (Negative) Urine Ketones (Negative) Urine Blood (Negative) Urine Nitrite (Negative) Urine Bilirubin (Negative) Urine Urobilinogen (0.2-1.0) Ur Leukocyte Esterase (Negative) Urine RBC (0-2) Urine WBC (0-5) Ur Squamous Epith Cells (None-Few) Urine Bacteria (None) Urine Yeast (None) SARS-CoV-2 (PCR) (Negative) Influenza Type A (PCR) (Negative) Influenza Type B (PCR) (Negative) RSV (PCR) (Negative) POC Glucose 64 (60-115) mg/dl Imaging Data Chest x-ray: Attestation: I have reviewed the pertinent imaging results. Radiologist's impression: INDICATION: Sepsis COMPARISON: August 20, 2024 TECHNIQUE: A single view study was obtained as a portable CXR,December 28, 2024 FINDINGS: As discussed below IMPRESSION: 1. Enlarged heart. Median sternotomy. Left atrial appendage occlusion clip. 2. Pacer normally located. 3. Low lung volumes. As visualized, the lungs and pleural spaces appear normal. 4. Demineralized osseous structures and degenerative changes. Critical Care Time Critical Care Time Critical Care Time: Yes Attestation: The patient required my highest level preparedness to intervene emergently and I personally spent this critical care time directly and personally managing the patient. This critical care time included: Obtaining a history; Examining the patient; Pulse oximetry; Ordering and reviewing of studies; Arranging urgent treatment with development of a management plan; Evaluation of patients response to treatment; Frequent reassessment discussions with other providers. This critical care time was performed to assess and manage the high probability of imminent life-threatening deterioration that could result in multiorgan failure. It was exclusive of separate billable procedures and treating other patients and teaching time. Total Critical Care Time in Minutes: 60 Discharge Plan Discharge Clinical Impression: Urinary tract infection, Sepsis, Hypoglycemia Patient Disposition: Admitted As Inpatient Condition: Stable
--- NOTE | 2024-12-28 05:11 | CRLHL7_ITS ---
For Patients: As a result of the Century Cures Act, medical imaging exams and procedure reports are released immediately into your electronic medical record. You may view this report before your referring provider. If you have questions, please contact your health care provider. INDICATION: Sepsis COMPARISON: August 20, 2024 TECHNIQUE: A single view study was obtained as a portable CXR,December 28, 2024 FINDINGS: As discussed below IMPRESSION: 1. Enlarged heart. Median sternotomy. Left atrial appendage occlusion clip. 2. Pacer normally located. 3. Low lung volumes. As visualized, the lungs and pleural spaces appear normal. 4. Demineralized osseous structures and degenerative changes. Dictated by Elfego Garcia MD @ 12/28/2024 5:49:13 AM (Electronically Signed)
[2024-12-28 05:33] LABS: PCR FLU A Negative PCR FLU A (Negative); PCR FLU B Negative PCR FLU B (Negative); PCR RSV Negative PCR RSV (Negative); SARS PCR* Negative SARS-CoV-2 (Negative)
[2024-12-28 05:46] LABS: Lactate Sepsis w/Reflex* 0.9 mmol/L (0.5-1.9)
[2024-12-28 05:59] LABS: Albumin* 3.3 g/dL (3.3-5.0); Chloride* 108 mmol/L (96-114)
[2024-12-28 06:00] LABS: Appearance Urine Cloudy (Clear)
[2024-12-28 06:00] LABS: Potassium* 3.3 mmol/L (3.6-5.1); Sodium* 136 mmol/L (135-149)
[2024-12-28 06:02] LABS: Blood Urea Nitrogen* 25 mg/dL (7-30); Creatinine* 1.0 mg/dL (0.5-1.5); Est. Creatinine Clearance* 53.03; Estimated Glomerular Filt Rate 73 ml/min
[2024-12-28 06:03] LABS: Alanine Aminotransferase* 18 U/L (4-50); Alkaline Phosphatase* 77 U/L (40-150); Anion Gap 9 mEq/L (7-15); Aspartate Amino Transferase* 50 U/L (12-35); Bilirubin Total* 1.8 mg/dL (0.1-1.5); Calcium* 8.9 mg/dL (8.4-10.6); Carbon Dioxide* 19 mmol/L (20-32); Total Protein* 6.0 g/dL (6.0-8.3)
[2024-12-28 06:11] LABS: Glucose* 38 mg/dL (60-115)
[2024-12-28 06:24] LABS: NT Pro B Type NatriureticPept* 8150 pg/mL (See Note)
[2024-12-28] MEDS: cefTRIAXone 1 GM in 0.9 % SODIUM CHLORIDE Mini-bag 100 ML IVPB (06:35)
[2024-12-28 06:43] LABS: Hematocrit* 33.3 % (37.0-53.0); Hemoglobin* 10.6 gm/dL (13.5-17.5); Immature Granulocytes Abs Auto 0.03 K/uL (0.00-0.30); Immature Granulocytes Pct Auto 0.4 %; Mean Corpuscular HGB Conc 32 gm/dL (32-36); Mean Corpuscular Hemoglobin 26 pg (26-34); Mean Corpuscular Volume 83 fL (80-100); RDW Coefficient of Variation % 15.7 % (11.5-15.5); Red Blood Count* 4.02 m/uL (4.30-5.90); White Blood Count* 6.85 K/uL (4.50-11.00)
[2024-12-28 06:48] LABS: Lymphocytes Absolute Auto 0.40 K/uL (0.90-2.90); Slide Review Reflex No
[2024-12-28 06:58] LABS: Glucose, Point-of-Care* 64 mg/dl (60-115)
--- NOTE | 2024-12-28 11:15 | PM.IMHP1 ---
Assessment and Plan Assessment and plan (1) Urinary tract infection: Problem comment: -UA cloudy, 3+ blood, negative nitrite, 1+ LE, >100 WBC (similar to previous UAs) -UC, BCx2 pending -received 1 dose IV Rocephin in ED -empiric Zosyn and vancomycin for now given fevers, rigors, soft SBP -continue IVF -discussed with Dr. Cook, Urology, suspects likely UTI despite several recent negative urine cultures given recent cystoscopy attempt and degree of sediment in urine. Agrees with broad-spectrum antibiotics, Rodriguez catheter (hold off on CBI for now if able). Available for further consultation if needed Status: Acute (2) Hematuria: Problem comment: -frankie hematuria noted shortly after admission -3 way catheter placed in case there is a need for CBI (150 mL UO on insertion) -hold aspirin and apixaban -SCDs for VTE PPX -CT abdomen/pelvis ordered Status: Acute (3) Fever: Problem comment: -at home temp 103?, 100.9? in ED -suspected UTI -triple swab negative, CXR without evidence of acute pneumonia, no acute URI symptoms -no leukocytosis, procalcitonin 0.52, lactate 0.9 -acute hypoxia, tachypnea resolved -CT chest/abdomen/pelvis ordered -UC and BCx2 pending -Tylenol p.r.n. and IVF Status: Acute (4) Hypoglycemia: Problem comment: -blood sugar 38 in ED. Improved with oral intake. Monitoring. Hypoglycemia protocol Status: Acute (5) Type 2 diabetes mellitus: Problem comment: -most recent A1c 8.3 -hold Jardiance, metformin, glipizide given hypoglycemia -glucose checks ACHS and insulin sliding scale Status: Acute (6) Hypertension: Problem comment: -soft pressures on admission -metoprolol (h/o AFib) with parameters Status: Acute (7) Atrial fibrillation: Problem comment: -on chronic anticoagulation - hold apixaban in setting of acute hematuria -continue metoprolol with parameters -cardiac cath tech Status: Acute (8) HFrEF (heart failure with reduced ejection fraction): Problem comment: -BNP 8150 - monitor for fluid overload -ECHO 06/05/2024 Final Impressions: 1. Normal LV size, estimated EF of 45 - 50%. 2. Dysynchronous LV activation pattern. 3. Normal RV size and systolic function. 4. Indeterminate pattern of LV diastolic filling. 5. The mitral valve is normal, mild to moderate regurgitation. 6. No other significant valvular disease. 7. The inferior vena cava is normal sized, respiratory size variation greater than 50%. Status: Acute (9) PMR (polymyalgia rheumatica): Problem comment: -currently on 5 mg prednisone daily (has been as low as 3 mg and as high as 10 mg) Status: Chronic (10) Iron deficiency anemia: Problem comment: -chronic -hemoglobin 10.6, baseline 8.4-10.6, monitor -recent worsening hematuria Status: Acute (11) Elevated LFTs: Problem comment: -total bili 1.8, AST 50. Recheck in a.m. Status: Acute (12) Hypokalemia: Problem comment: -mild, 3.3, replace and recheck in a.m. Status: Acute Plan Continue IV antibiotics, awaiting cultures. Rodriguez catheter in place. Urology available for consult if necessary. Total Time Spent Total Time Spent: Today I spent 75 minutes seeing the patient, reviewing Expanse and EPIC notes/diagnostics, discussing the care plan with our care time that includes social work, PT/OT, pharmacy, RT, long-term and documenting my impressions and plan in the medical record. Hospitalist- H&P: HPI History of Present Illness Date Seen: 12/28/24 Chief complaint: fever Narrative: Enrike Coleman is a 84 year old male past medical history significant for PMR, atrial fibrillation on chronic anticoagulation,s/p pacemaker placement, type 2 diabetes mellitus, HFrEF, hypertension, s/p CABG x3, mild cognitive impairment is admitted to the medical floor from the ED management of UTI. Patient is seen with , Edel, at bedside. She provides most of the history. Patient has been followed by Urology for prostate cancer initially diagnosed by biopsy in 2012. Opted for no treatment. No chemotherapy or radiation therapy. No surgical intervention. Have been following his PSAs. Patient saw Dr. Cook, [facility], on Tuesday 12/26 for increasing urinary frequency and hematuria. Cystoscopy was attempted but unsuccessful as unable to penetrate bladder as reported by his . I am not able to access this particular visit in EMR yet. She also tells me there has been quite a bit of sediment in his urine and he has had a few urinalyses which appear positive but followed by negative urine cultures in the past few months. Since Wednesday night he has had low back pain. Noted to have a fever of 103? last night. Has had a global headache. Denies chest pain or shortness of breath. Was noted to be hypoxic and a tachypneic in the ED initially but was also noted to have a blood sugar of 38. Denies recent cough or cold symptoms. Denies abdominal pain. No nausea or vomiting. No change in his stools. No black or bloody stools. Reports increasing blood in his urine. In the ED, UA appears positive. UC is pending. No serum leukocytosis. Lactate is unremarkable. Given 1 L NS in setting of known heart failure. Given 1 g IV Rocephin. PCP is Dr. Toscano. Quit smoking 32 years ago. Occasional alcohol use. Wishes to be full code without prolonged resuscitative efforts. Has a healthcare directive. Review of Systems Narrative: REVIEW OF SYSTEMS: Complete review of systems performed and negative unless otherwise stated in HPI or below. Medical Decision Making Medical Decision Making Code Status: Full code - no prolonged resuscitative efforts Has patient completed a Health Care Directive: Yes During This Stay, Who Would You Like To Make Decisions For You In The Event You Are Unable To Make Them For Yourself?: Elisabeth [facility] Medical History (Updated 12/28/24 @ 14:03 by Tierra Quick PA-C) Hematuria ?R31.9 - Hematuria, unspecified (ICD-10) Type 2 diabetes mellitus ?E11.9 - Type 2 diabetes mellitus without complications (ICD-10) HFrEF (heart failure with reduced ejection fraction) ?I50.20 - Unspecified systolic (congestive) heart failure (ICD-10) ASHD (arteriosclerotic heart disease) ?I25.10 - Atherosclerotic heart disease of [place] coronary artery without angina pectoris (ICD-10) Chronic anticoagulation ?Z79.01 - long term care social worker (current) use of anticoagulants (ICD-10) Hypertension ?I10 - Essential (primary) hypertension (ICD-10) BPH without urinary obstruction ?N40.0 - Benign prostatic hyperplasia without lower urinary tract symptoms (ICD-10) Mild cognitive impairment ?G31.84 - Mild cognitive impairment of uncertain or unknown etiology (ICD-10) Prostate cancer ?C61 - Malignant neoplasm of prostate (ICD-10) Mobitz (type) I (Wenckebach's) atrioventricular block ?I44.1 - Atrioventricular block, second degree (ICD-10) Atrial fibrillation ?I48.91 - Unspecified atrial fibrillation (ICD-10) Iron deficiency anemia ?D50.9 - Iron deficiency anemia, unspecified (ICD-10) Erectile dysfunction ?N52.9 - Male erectile dysfunction, unspecified (ICD-10) Displacement of lumbar intervertebral disc without myelopathy ?M51.26 - Other intervertebral disc displacement, lumbar region (ICD-10) Degeneration of lumbar or lumbosacral intervertebral disc ?M51.37 - Other intervertebral disc degeneration, lumbosacral region (ICD-10) Vitamin B12 deficiency ?E53.8 - Deficiency of other specified B group vitamins (ICD-10) Lumbar radiculopathy ?M54.16 - Radiculopathy, lumbar region (ICD-10) 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 - Complete traumatic metacarpophalangeal amputation of unspecified finger, initial encounter (ICD-10) Diabetes ?E11.9 - Type 2 diabetes mellitus without complications (ICD-10) COVID ?U07.1 - COVID-19 (ICD-10) Surgical History S/P CABG x 3 ?Z95.1 - Presence of aortocoronary bypass graft (ICD-10) History of permanent cardiac pacemaker placement ?Z95.0 - Presence of cardiac pacemaker (ICD-10) History of cholecystectomy ?Z90.49 - Acquired absence of other specified parts of digestive tract (ICD-10) History of appendectomy ?Z90.49 - Acquired absence of other specified parts of digestive tract (ICD-10) History of arthroscopy of left shoulder (03/21/96) ?Z98.890 - Other specified postprocedural states (ICD-10) History of arthroscopy of right shoulder (11/26/11) ?Z98.890 - Other specified postprocedural states (ICD-10) S/P ORIF (open reduction internal fixation) fracture (04/05/14) ?Z98.890 - Other specified postprocedural states (ICD-10) ?Z87.81 - Personal history of (healed) traumatic fracture (ICD-10) Family History Mother Bowel cancer Social History What is your current living situation?: I presently have a place to live Problems where you live: no known problems Problems where you live details: no known problems In the past 12 months, utilities in danger of being shut off: no In past 12 months, lack of transportation kept you from medical appts, meetings, work, or getting things needed for daily living: no In the past 12 mos, have been you worried that your food would run out before you had money to buy more?: never true In the past 12 mos, the food you bought just didn't last and you didn't have money to buy more?: never true Highest level of school completed/degree received: Bachelor's degree Smoking Status: Former smoker Do you use any of these nicotine containing products: None Second hand tobacco smoke exposure: Yes How often do you have a drink containing alcohol: 4 or more times a week How many standard drinks containing alcohol do you have on a typical day: 1 or 2 AUDIT-C Alcohol total score: 4 Non-prescribed substance use: denies use Caffeine: No How often does anyone, including family, friends and others, physically hurt you: never How often does anyone, including family, friends and others, insult or talk down to you: never How often does anyone, including family, friends and others, threaten you with harm: never How often does anyone, including family, friends and others, scream or curse at you: never service: No Meds Home Medications and Allergies Home Medications ?Medication ?Instructions ?Recorded ?Confirmed ?Type apixaban 5 mg tablet (Eliquis) 5 mg PO Q12H 02/15/22 12/28/24 History blood sugar diagnostic (True 02/15/22 10/25/24 History Metrix Glucose Test Strip) metformin 500 mg tablet,extended 2,000 mg PO QPM 02/15/22 12/28/24 History release 24 hr acetaminophen 500 mg capsule 1,000 mg PO BID 07/27/23 12/28/24 History tamsulosin 0.4 mg capsule 0.4 mg PO DAILY 07/27/23 12/28/24 History empagliflozin 10 mg tablet 10 mg PO DAILY 02/24/24 12/28/24 History (Jardiance) glipizide 10 mg tablet, extended 20 mg PO DAILY 02/24/24 12/28/24 History release 24 hr metoprolol succinate 25 mg 25 mg PO DAILY 02/24/24 12/28/24 History tablet,extended release 24 hr nitroglycerin 0.4 mg sublingual 0.4 mg sublingual Q5M PRN 02/24/24 12/28/24 History tablet rosuvastatin 20 mg tablet 20 mg PO QPM 02/24/24 12/28/24 History aspirin 81 mg capsule 81 mg PO DAILY 06/11/24 12/28/24 History cholecalciferol (vitamin D3) 1,250 1,250 mcg PO Q7D 12/28/24 12/28/24 History mcg (50,000 unit) capsule prednisone 5 mg tablet 5 mg PO DAILY 12/28/24 12/28/24 History tadalafil 5 mg tablet 5 mg PO HS 12/28/24 12/28/24 History Allergies Allergy/AdvReac Type Severity Reaction Status Date / Time No Known Drug Allergies Allergy Verified 10/25/24 14:28 Exam Narrative: Exam Narrative: PHYSICAL EXAM General: Pleasant, sleepy but appropriately conversant, NAD HEENT: Normocephalic, atraumatic, sclera white, EOMI, oral mucosa moist Cardiovascular: RRR, S1S2 Pulmonary: CTA bilaterally without rhonchi, rales, expiratory wheezes. No dyspnea on room air currently Abdominal: Soft, nondistended, NTTP, no guarding Neurological: Alert, mildly confused, cranial nerves intact, no focal findings Extremities: No gross joint deformity or swelling. AROMI. Neurovascularly intact Skin: Warm, dry. Const: Vital Signs, click to edit/add: Vital Signs - 24 hr 12/28/24 05:01 12/28/24 05:02 12/28/24 05:06 Temperature 100.7 F H 100.9 F H Pulse Rate Pulse Rate [Pulse Oximeter] 73 Pulse Rate [Right Pulse Oximeter] 74 Pulse Rate [Right Radial] Respiratory Rate 20 18 Blood Pressure Blood Pressure [Le ft Upper Arm] 109/55 L Blood Pressure [Ri ght Arm] Blood Pressure [Ri ght Upper Arm] 109/55 L Pulse Oximetry 85 L 85 L 85 L Oxygen Delivery Me thod Room Air Room Air Oxygen Flow Rate 12/28/24 05:06 12/28/24 05:07 12/28/24 05:31 Temperature 100.9 F H 99.8 F H Pulse Rate 72 Pulse Rate [Pulse Oximeter] Pulse Rate [Right Pulse Oximeter] Pulse Rate [Right Radial] Respiratory Rate 32 H Blood Pressure 106/56 L Blood Pressure [Le ft Upper Arm] Blood Pressure [Ri ght Arm] Blood Pressure [Ri ght Upper Arm] Pulse Oximetry 93 93 Oxygen Delivery Me thod Nasal Cannula Oxygen Flow Rate 3 12/28/24 06:02 12/28/24 06:31 12/28/24 06:32 Temperature Pulse Rate 70 70 70 Pulse Rate [Pulse Oximeter] Pulse Rate [Right Pulse Oximeter] Pulse Rate [Right Radial] Respiratory Rate 29 H 31 H 26 H Blood Pressure 98/54 L 93/49 L Blood Pressure [Le ft Upper Arm] Blood Pressure [Ri ght Arm] Blood Pressure [Ri ght Upper Arm] Pulse Oximetry 95 95 95 Oxygen Delivery Me thod Nasal Cannula Oxygen Flow Rate 3 12/28/24 06:45 12/28/24 06:45 12/28/24 07:00 Temperature Pulse Rate 70 70 Pulse Rate [Pulse Oximeter] Pulse Rate [Right Pulse Oximeter] Pulse Rate [Right Radial] Respiratory Rate 25 H 24 Blood Pressure Blood Pressure [Le ft Upper Arm] Blood Pressure [Ri ght Arm] Blood Pressure [Ri ght Upper Arm] Pulse Oximetry 96 95 95 Oxygen Delivery Me thod Nasal Cannula Oxygen Flow Rate 2 12/28/24 07:02 12/28/24 07:03 12/28/24 07:15 Temperature Pulse Rate 70 70 69 Pulse Rate [Pulse Oximeter] Pulse Rate [Right Pulse Oximeter] Pulse Rate [Right Radial] Respiratory Rate 27 H 28 H 28 H Blood Pressure 94/52 L Blood Pressure [Le ft Upper Arm] Blood Pressure [Ri ght Arm] Blood Pressure [Ri ght Upper Arm] Pulse Oximetry 95 96 96 Oxygen Delivery Me thod Oxygen Flow Rate 12/28/24 07:32 12/28/24 07:33 12/28/24 07:45 Temperature Pulse Rate Pulse Rate [Pulse Oximeter] Pulse Rate [Right Pulse Oximeter] Pulse Rate [Right Radial] Respiratory Rate 26 H 32 H Blood Pressure 112/62 Blood Pressure [Le ft Upper Arm] Blood Pressure [Ri ght Arm] Blood Pressure [Ri ght Upper Arm] Pulse Oximetry Oxygen Delivery Me thod Oxygen Flow Rate 12/28/24 08:31 Temperature 97.2 F L Pulse Rate Pulse Rate [Pulse Oximeter] Pulse Rate [Right Pulse Oximeter] Pulse Rate [Right Radial] 75 Respiratory Rate 20 Blood Pressure Blood Pressure [Le ft Upper Arm] Blood Pressure [Ri ght Arm] 100/64 Blood Pressure [Ri ght Upper Arm] Pulse Oximetry 95 Oxygen Delivery Me thod Room Air Oxygen Flow Rate Hospitalist - H&P: Result Labs Labs: Short CBC 12/28/24 Range/Units 05:20 WBC 6.85 (4.50-11.00) K/uL Hgb 10.6 L (13.5-17.5) gm/dL Hct 33.3 L (37.0-53.0) % Plt Count 146 (140-440) K/uL BMP 12/28/24 05:20 Sodium 136 Potassium 3.3 L Chloride 108 Carbon Dioxide 19 L BUN 25 Creatinine 1.0 Glucose 38 L* Calcium 8.9 Cardiac Enzymes 12/28/24 Range/Units 05:20 Troponin I 0.05 H (0.01-0.04) ng/mL Liver Function 12/28/24 Range/Units 05:20 Total Bilirubin 1.8 H (0.1-1.5) mg/dL AST 50 H (12-35) U/L ALT 18 (4-50) U/L Alkaline Phosphatase 77 (40-150) U/L Albumin 3.3 (3.3-5.0) g/dL Urine 12/28/24 Range/Units 05:51 Urine Color Brown A (Yellow) Urine Appearance Cloudy A (Clear) Urine pH 6.0 (5.0-8.5) Ur Specific [place] 1.025 (1.000-1.030) Urine Protein 3+ A (Negative) Urine Glucose (UA) 2+ A (Negative) ECG Attestation: I personally reviewed and interpreted this ECG as follows: Interpretation: Wide QRS noted - which can be seen in previous ECG strips in EMR, ventricular rate 70, QTC 486 Imaging Chest x-ray: Attestation: I have reviewed the pertinent imaging results. Radiologist's impression: 1. Enlarged heart. Median sternotomy. Left atrial appendage occlusion clip. 2. Pacer normally located. 3. Low lung volumes. As visualized, the lungs and pleural spaces appear normal. 4. Demineralized osseous structures and degenerative changes.
--- NOTE | 2024-12-28 11:57 | CRLHL7_ITS ---
For Patients: As a result of the Century Cures Act, medical imaging exams and procedure reports are released immediately into your electronic medical record. You may view this report before your referring provider. If you have questions, please contact your health care provider. Indication: Fever, hypoxia and hematuria status post cystoscopy Technique: Volumetric multidetector CT images of the chest, abdomen, and pelvis were obtained after the administration of intravenous contrast. 94 cc Isovue 370 low osmolar intravenous contrast Comparison: CT pelvis with contrast April 16, 2024 FINDINGS: CHEST The thoracic inlet is unremarkable with demonstration of a left-sided pacer pack in the chest wall. The thoracic aorta is nonaneurysmal with postoperative change of the chest status post coronary artery bypass grafting and median sternotomy. No evidence of filling defect. Mildly limited evaluation of the distal lower lobe subsegmental pulmonary arteries due to respiratory motion artifact. Otherwise, no evidence of filling defect to suggest pulmonary embolus. Likely reactive mediastinal and hilar lymph nodes. No axillary adenopathy. There is [id number] central bronchial thickening with mucoid impaction of the sglpi-tdvrtnw-zfep-left lower lobe bronchi. There are diffusely increased interlobular septal markings with ground-glass opacities in the bilateral sloan thoraces. Trace gmbkj-zrvyiwd-sesg-left basilar effusions with adjacent compressive atelectasis and parenchymal scar. No dense consolidation or effusion. Somewhat nodular opacities are seen within the peripheral left lung base mildly limited evaluation due to motion artifact. Additional nodule is seen within the right lung apex measuring up to 5.5 millimeters. The thoracic osseus structures are intact without fracture, lytic, or blastic lesion. The thoracic vertebral body heights demonstrate somewhat age-indeterminate deformities of the superior T3 and T4 endplates. Otherwise no evidence of spondylolisthesis or displaced fracture. ABDOMEN AND PELVIS The liver is normal in attenuation and size. The portal vein is patent. The spleen is normal in attenuation and size. The gallbladder is contracted in appearance. There is no intrahepatic or common ductal dilatation. The stomach and duodenum are grossly unremarkable. There is extensive cystic change of the pancreas which may represent extensive sequela of pancreatic pseudocyst formation and/or multiple cystic pancreatic neoplasia. The adrenal glands are unremarkable without evidence of adenoma. There are cystic changes of the kidneys with otherwise preserved corticomedullary differentiation. No evidence of hydronephrosis or hydroureter. There is moderate stool seen throughout the colon with somewhat decompressed appearance of the central small bowel. No significant inflammatory change. The appendix is unremarkable without significant inflammatory change. The abdominal aorta is nonaneurysmal without significant atherosclerotic disease. There is demonstration of marked thickening of the urinary bladder with a Rodriguez catheter in satisfactory position moderate mucosal hyperemia. There is moderate prostatic hypertrophy appreciated. There is no pathologically enlarged epigastric, mesenteric, retroperitoneal, or pelvic sidewall lymph node. There is a small fat containing umbilical hernia. There is no free air or free fluid. Degenerative changes of bilateral hips and sacroiliac joints are appreciated. The lumbar vertebral body heights are grossly maintained with moderate to severe degenerative disc disease with marginal osteophyte formation. There is moderate facet arthrosis. Impression: 1. Demonstration of diffuse interlobular septal thickening, ground-glass opacity with trace basilar effusions commensurate with developing pulmonary edema. Minimal mucoid impaction of the bronchi in the lower lobes are appreciated. No obvious dense consolidation. No definite pulmonary embolus, mildly limited evaluation of the distal lower lobe subsegmental arteries due to respiratory motion artifact. 2. Marked thickening of the urinary bladder with mucosal hyperemia and decompressed appearance with Rodriguez catheter. Findings likely represent moderate cystitis changes. No evidence of obstructive calculus or abnormal corticomedullary differentiation of the kidneys. 3. Incidental note made of an extensive multi-cystic appearance of the pancreas which may represent sequela of pancreatitis and/or polycystic changes of the pancreas. 4. According to given surgical history there is prior cholecystectomy; however, there is a intact gallbladder is seen within the right upper quadrant. Recommend correlation with history of prior surgical intervention. Please note that all CT scans at this facility use dose modulation, iterative reconstruction, and/or weight-based dosing when appropriate to reduce radiation dose to as low as reasonably achievable. Dictated by Jaswinder Fisher MD @ 12/28/2024 2:51:29 PM (Electronically Signed)
--- NOTE | 2024-12-28 11:57 | REH.PT ---
Eval & Treat orders received. Chart reviewed. Upon approach pt shaking in bed with teeth chattering under several warm blankets. Nursing notified. Will see pt when he no longer has rigors.
[2024-12-28 12:18] LABS: Procalcitonin* 0.52 ng/mL (<0.50)
[2024-12-28] MEDS: ACETAMINOPHEN 325 MG TABLET PO ×2 (12:27→18:24)
[2024-12-28] MEDS: METOPROLOL SUCCINATE (XL) 25 MG TAB PO (12:40)
[2024-12-28] MEDS: lidocaine HCL 2 % JELLY (TOP) STERILE 6 ML UR (13:59)
[2024-12-28] MEDS: POTASSIUM CHLORIDE 10 MEQ CAPSULE ER 40 MEQ PO (14:51)
[2024-12-28] MEDS: PIPERACILLIN/TAZOBACTAM 3.375 GM in 0.9 % SODIUM CHLORIDE Mini-bag 100 ML IVPB ×2 (14:53→21:17)
[2024-12-28] MEDS: VANCOMYCIN 2 GM/400 ML 2 GM/400 ML PIGGYBACK IVPB (15:47)
[2024-12-28] MEDS: ROSUVASTATIN CALCIUM 10 MG TABLET 20 MG PO (18:24)
[2024-12-28] MEDS: INSULIN ASPART 100 UNIT/ML SUBCUT (20:51)
[2024-12-28] MEDS: MELATONIN 3 MG TABLET PO (23:22)
[2024-12-29] VITALS (12 sets, daily range): BP systolic 109–145; BP diastolic 61–80; PULSE 69–87; RESP 18–28; TEMP 36.2–38.1; O2SAT 93–97
[2024-12-29] MEDS: HYDROCORTISONE SOD SUCCINATE 50 MG/ML inj 100 MG IVP ×3 (00:15→15:46)
[2024-12-29] MEDS: FUROSEMIDE 10 MG/ML inj 40 MG IVP ×2 (00:15→10:25)
[2024-12-29] MEDS: POTASSIUM CHLORIDE 10 MEQ CAPSULE ER 40 MEQ PO ×3 (00:16→18:13)
[2024-12-29] MEDS: ACETAMINOPHEN 325 MG TABLET PO ×2 (00:27→20:42)
[2024-12-29] MEDS: PIPERACILLIN/TAZOBACTAM 3.375 GM in 0.9 % SODIUM CHLORIDE Mini-bag 100 ML IVPB ×4 (00:55→18:35)
[2024-12-29 04:27] LABS: Lactate Sepsis w/Reflex* 0.9 mmol/L (0.5-1.9)
[2024-12-29 04:42] LABS: Hematocrit* 29.4 % (37.0-53.0); Hemoglobin* 9.5 gm/dL (13.5-17.5); Mean Corpuscular HGB Conc 32 gm/dL (32-36); Mean Corpuscular Hemoglobin 27 pg (26-34); Mean Corpuscular Volume 82 fL (80-100); Red Blood Count* 3.57 m/uL (4.30-5.90); White Blood Count* 8.28 K/uL (4.50-11.00)
[2024-12-29 04:48] LABS: Albumin* 2.9 g/dL (3.3-5.0); Chloride* 107 mmol/L (96-114); Potassium* 3.2 mmol/L (3.6-5.1); Sodium* 133 mmol/L (135-149)
[2024-12-29 04:51] LABS: Alanine Aminotransferase* 33 U/L (4-50); Alkaline Phosphatase* 100 U/L (40-150); Anion Gap 10 mEq/L (7-15); Aspartate Amino Transferase* 84 U/L (12-35); Bilirubin Direct* 0.6 mg/dL (0.0-0.5); Bilirubin Total* 1.6 mg/dL (0.1-1.5); Blood Urea Nitrogen* 23 mg/dL (7-30); Calcium* 8.1 mg/dL (8.4-10.6); Carbon Dioxide* 16 mmol/L (20-32); Creatinine* 1.0 mg/dL (0.5-1.5); Est. Creatinine Clearance* 49.58; Estimated Glomerular Filt Rate 73 ml/min; Glucose* 165 mg/dL (60-115); Total Protein* 5.5 g/dL (6.0-8.3)
[2024-12-29 04:54] LABS: Slide Review Reflex No
--- NOTE | 2024-12-29 05:13 | PC.NURSE ---
shift note: Pt. noted to be hypoxic and?tachypneic?@?2332.??HOB elevated, O2 administered. Pt reported pain; pain med given?See EMAR. notified and bedside?to assess. See orders. EKG done; results given to MD.?Hematuria and clots?observed?in urine output catheter.?CBI started at 0000. parts identifier & RN manually irrigated for the first hour, followed by a change from red to light yellow clear urine output. ?At 0300 VS, Pt. noted?to be?diaphoretic. Repeat EKG done.?Coarse crackles in the base of?anterior lungs. Epi JESSICA contacted. RN given orders to stop fluids. Pt resting comfortably in bed, bed alarm on.??
[2024-12-29] MEDS: INSULIN ASPART 100 UNIT/ML SUBCUT ×4 (08:17→20:43)
[2024-12-29] MEDS: TAMSULOSIN HCL 0.4 MG CAPSULE PO (08:19)
[2024-12-29] MEDS: METOPROLOL SUCCINATE (XL) 25 MG TAB PO (08:19)
[2024-12-29] MEDS: SODIUM CHLORIDE 0.9 % (FLUSH) 10 ML SYRINGE 5 ML IVF ×4 (08:19→21:26)
--- NOTE | 2024-12-29 10:10 | P.IMPN_ITS ---
Assessment and Plan Assessment and plan (1) Sepsis: Problem comment: -fever, tachypnea, suspected source UTI -did not receive aggressive IVF hydration in setting of known heart failure - still appeared to develop pulmonary edema requiring diuresis -Zosyn and vancomycin for broad coverage, pending UC. BC x2 NGTD -CT chest abdomen pelvis without obvious pulmonary consolidation, notable marked thickening urinary bladder suspicious for moderate cystitis changes -Repeat ECHO ordered 12/29 Status: Acute (2) Urinary tract infection: Problem comment: -UA cloudy, 3+ blood, negative nitrite, 1+ LE, >100 WBC (similar to previous UAs) -UC pending (most recent UCs have been negative despite +appearing UAs) -received 1 dose IV Rocephin in ED -empiric Zosyn and vancomycin for broader coverage with plan to deescalate when able -continue IVF - stopped after developing pulmonary edema. Improved oral intake -discussed with Dr. Cook, Urology, suspects likely UTI despite several recent negative urine cultures given recent cystoscopy attempt and degree of sediment in urine. Agrees with broad-spectrum antibiotics, Rodriguez catheter (hold off on CBI for now if able). Available for further consultation if needed Status: Acute (3) Hematuria: Problem comment: -frankie hematuria noted shortly after admission -3 way catheter placed in case there is a need for CBI (150 mL UO on insertion) -hold aspirin and apixaban -SCDs for VTE PPX -CBI started last night 12/28. Straw color 12/29 - start clamp trial Status: Acute (4) Fever: Problem comment: -at home temp 103?, 100.9? in ED, 100.6? at midnight 12/29 -suspected UTI -triple swab negative, CXR without evidence of acute pneumonia, no acute URI symptoms -no leukocytosis, procalcitonin 0.52, lactate 0.9 -acute hypoxia, tachypnea resolved -no meningeal s/s -CT chest/abdomen/pelvis concerning for cystitis -UC pending, BCx2 NGTD -Tylenol p.r.n. and IVF Status: Acute (5) Hypoglycemia: Problem comment: -blood sugar 38 in ED. Improved with oral intake. Monitoring. 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 Normal LV size, estimated EF of 45 - 50%. 2. Dysynchronous LV activation pattern. 3. Normal RV size and systolic function. 4. Indeterminate pattern of LV diastolic filling. 5. The mitral valve is normal, mild to moderate regurgitation. 6. No other significant valvular disease. 7. The inferior vena cava is normal sized, respiratory size variation greater than 50%. 12/29 - CT shows developing pulmonary edema, received 1 dose Lasix last night, 1 additional dose today with appropriate urine output Repeat ECHO given fever, bumps in troponin, edema Status: Acute (10) PMR (polymyalgia rheumatica): Problem comment: -currently on 5 mg prednisone daily (has been as low as 3 mg and as high as 10 mg) -stress dose IV hydrocortisone x3 doses Status: Chronic (11) Iron deficiency anemia: Problem comment: -chronic -hemoglobin 10.6, baseline 8.4-10.6 -recent worsening hematuria, IVF hydration, lasix -platelets 122 -monitoring Status: Acute (12) Elevated LFTs: Problem comment: -total bili 1.8, AST 50 - following -CT shows multi-cystic appearance of the pancreas - lipase 118. No abdominal pain, n/v Status: Acute (13) Hypokalemia: Problem comment: -mild, 3.3, continue replacement and follow Status: Acute Plan Continue broad-spectrum IV antibiotics, awaiting urine culture. Total Time Spent Total Time Spent: Today I spent 55 minutes seeing the patient, reviewing Expanse and EPIC note s/diagnostics, discussing the care plan with our care time that includes social work, PT/OT, pharmacy, RT, jail and documenting my impressions and plan in the medical record. Subjective Date Seen: 12/29/24 Interval history: Patient is seen sitting up in a chair, at bedside. Reports feeling better this morning. Eating a scone. Had a 2nd episode last night of diaphoresis, rigors, pain. Small troponin bump noted 0.07. Fever 100.6?. Does not recall this given his chronic cognitive impairment. Reports feeling pretty good currently. CBI initiated for ongoing hematuria, notable clots. Urine currently straw- colored BC x2 NGTD UC pending Exam Narrative: Exam Narrative: PHYSICAL EXAM General: Pleasant, conversant, NAD Cardiovascular: RRR, S1S2 Pulmonary: CTA bilaterally without rhonchi, rales, expiratory wheezes. No dyspnea on room air currently Abdominal: Soft, nondistended, NTTP, no guarding Urogenital: Rodriguez catheter in place, straw-colored urine noted in bag, no clots currently, Neurological: Alert, continues to be mildly confused, cranial nerves intact, no focal findings Extremities: No gross joint deformity or swelling. AROMI. Neurovascularly intact Skin: Warm, dry. Const: Vital Signs, click to edit/add: Vital Signs - 24 hr 12/28/24 11:00 12/28/24 12:27 12/28/24 15:00 Temperature 99.5 F 99.8 F H 99.4 F Pulse Rate Pulse Rate [Right Pulse Oximeter] Pulse Rate [Right Radial] 70 Respiratory Rate 20 16 Blood Pressure [Ri ght Arm] 122/62 111/64 Pulse Oximetry 94 96 Oxygen Delivery Nh thod Room Air Room Air Oxygen Flow Rate 12/28/24 15:00 12/28/24 19:00 12/28/24 23:32 Temperature 98 F 100.6 F H Pulse Rate Pulse Rate [Right Pulse Oximeter] Pulse Rate [Right Radial] 70 70 79 Respiratory Rate 16 16 28 H Blood Pressure [Ri ght Arm] 117/62 142/111 H Pulse Oximetry 96 80 L Oxygen Delivery Nh thod Room Air Room Air Oxygen Flow Rate 12/28/24 23:32 12/28/24 23:45 12/29/24 00:27 Temperature 100.6 F H Pulse Rate Pulse Rate [Right Pulse Oximeter] 79 56 L Pulse Rate [Right Radial] Respiratory Rate 28 H Blood Pressure [Ri ght Arm] 171/87 H Pulse Oximetry Oxygen Delivery Nh thod Oxygen Flow Rate 12/29/24 00:30 12/29/24 00:57 12/29/24 01:05 Temperature 98.4 F Pulse Rate 87 Pulse Rate [Right Pulse Oximeter] 86 75 Pulse Rate [Right Radial] Respiratory Rate 26 H Blood Pressure [Ri ght Arm] 145/80 H Pulse Oximetry 96 95 Oxygen Delivery Me thod OxyMask OxyMask Oxygen Flow Rate 5 5 12/29/24 02:00 12/29/24 02:58 12/29/24 02:58 Temperature 98.4 F 99.2 F Pulse Rate Pulse Rate [Right Pulse Oximeter] 71 Pulse Rate [Right Radial] Respiratory Rate 28 H 28 H Blood Pressure [Ri ght Arm] 145/80 H Pulse Oximetry 93 Oxygen Delivery Me thod OxyMask Oxygen Flow Rate 2 12/29/24 08:32 12/29/24 09:44 Temperature 98.2 F Pulse Rate 71 Pulse Rate [Right Pulse Oximeter] 70 Pulse Rate [Right Radial] Respiratory Rate 28 H Blood Pressure [Ri ght Arm] 124/70 Pulse Oximetry 94 Oxygen Delivery Me thod Room Air Oxygen Flow Rate Labs Labs: Laboratory Results - last 24 hr 12/28/24 12/28/24 12/28/24 05:20 11:24 12:06 WBC RBC Hgb Hct MCV MCH MCHC Plt Count Sodium Potassium Chloride Carbon Dioxide Anion Gap BUN Creatinine Estimated Creat Clear Estimated GFR Glucose Lactate Calcium Total Bilirubin Direct Bilirubin AST ALT Alkaline Phosphatase Troponin I 0.04 Total Protein Albumin Procalcitonin 0.52 H Lab Acknowledgement Test Added 12/29/24 12/29/24 04:18 09:00 WBC 8.28 RBC 3.57 L Hgb 9.5 L Hct 29.4 L MCV 82 MCH 27 MCHC 32 Plt Count 122 L Sodium 133 L Potassium 3.2 L Chloride 107 Carbon Dioxide 16 L Anion Gap 10 BUN 23 Creatinine 1.0 Estimated Creat Clear 49.58 Estimated GFR 73 Glucose 165 H Lactate 0.9 Calcium 8.1 L Total Bilirubin 1.6 H Direct Bilirubin 0.6 H AST 84 H ALT 33 Alkaline Phosphatase 100 Troponin I 0.07 H* 0.06 H* Total Protein 5.5 L Albumin 2.9 L Procalcitonin Lab Acknowledgement
[2024-12-29] MEDS: PERFLUTREN LIPID MICROSPHERES 2 ML VIAL IVP (15:18)
[2024-12-29] MEDS: VANCOMYCIN 1.5 GM/300 ML 1.5 GM/300 ML PIGGYBACK IVPB (15:46)
--- NOTE | 2024-12-29 16:20 | PC.SOCIAL ---
Social work: Met with pt, and son regarding d/c planning. Pt lives in independent apartment in [place]. She is his primary caregiver. states he was mostly independent with his physical needs prior to admission but his walking has decreased significantly. shared that her caregiving is mostly for his memory concerns. expects pt to be discharged home from the hospital and does not anticipate needing any additional services at discharge. states they had a home care agency assigned after a previous hospital stay, but they were not pleased with this agency and would like a different agency if home care is needed. and son have social workers contact information and are aware of how to reach psychologist social with any questions or concerns about discharge needs or resources. dope maintenance worker to follow up on Wednesday.
[2024-12-29] MEDS: ROSUVASTATIN CALCIUM 10 MG TABLET 20 MG PO (18:13)
--- NOTE | 2024-12-29 18:52 | PC.NURSE ---
End of Shift: Patient pleasant and cooperative, pleasantly confused. VSS, afebrile. SSI given per protocol this shift. Declined pain this shift. CBI clamped at 1749, has not had any pain. 1A walker and gait belt. Tolerating regular diet, denies nausea.
[2024-12-30] VITALS (8 sets, daily range): BP systolic 117–137; BP diastolic 72–79; PULSE 69–75; RESP 16–20; TEMP 36.6–38; O2SAT 96–98
[2024-12-30] MEDS: PIPERACILLIN/TAZOBACTAM 3.375 GM in 0.9 % SODIUM CHLORIDE Mini-bag 100 ML IVPB ×4 (00:37→18:46)
--- NOTE | 2024-12-30 04:45 | PC.NURSE ---
Patients CBI Clamped throughout shift, Rodriguez catheter patent ,he continued to have yellow cloudy urine without clots. Patient is up with one assist and walker, he utilizes bed and chair alarm for safety. blood sugars and insulin completed as ordered.
[2024-12-30 06:19] LABS: Hematocrit* 29.3 % (37.0-53.0); Hemoglobin* 9.5 gm/dL (13.5-17.5); Mean Corpuscular HGB Conc 32 gm/dL (32-36); Mean Corpuscular Hemoglobin 26 pg (26-34); Mean Corpuscular Volume 81 fL (80-100); Red Blood Count* 3.60 m/uL (4.30-5.90); White Blood Count* 7.16 K/uL (4.50-11.00)
[2024-12-30 06:25] LABS: Slide Review Reflex No
[2024-12-30 06:26] LABS: Albumin* 2.7 g/dL (3.3-5.0)
[2024-12-30 06:27] LABS: Chloride* 108 mmol/L (96-114); Potassium* 3.5 mmol/L (3.6-5.1); Sodium* 132 mmol/L (135-149)
[2024-12-30 06:29] LABS: Alanine Aminotransferase* 29 U/L (4-50); Anion Gap 7 mEq/L (7-15); Aspartate Amino Transferase* 46 U/L (12-35); Blood Urea Nitrogen* 28 mg/dL (7-30); Carbon Dioxide* 17 mmol/L (20-32); Creatinine* 0.9 mg/dL (0.5-1.5); Est. Creatinine Clearance* 49.58; Estimated Glomerular Filt Rate 83 ml/min
[2024-12-30 06:30] LABS: Alkaline Phosphatase* 92 U/L (40-150); Bilirubin Direct* 0.4 mg/dL (0.0-0.5); Bilirubin Total* 1.3 mg/dL (0.1-1.5); Calcium* 8.1 mg/dL (8.4-10.6); Glucose* 185 mg/dL (60-115); Total Protein* 5.3 g/dL (6.0-8.3)
[2024-12-30] MEDS: METOPROLOL SUCCINATE (XL) 25 MG TAB PO (08:58)
[2024-12-30] MEDS: POTASSIUM CHLORIDE 10 MEQ CAPSULE ER 40 MEQ PO ×2 (08:59→17:36)
[2024-12-30] MEDS: INSULIN ASPART 100 UNIT/ML SUBCUT ×4 (08:59→20:36)
[2024-12-30] MEDS: TAMSULOSIN HCL 0.4 MG CAPSULE PO (08:59)
[2024-12-30] MEDS: SODIUM CHLORIDE 0.9 % (FLUSH) 10 ML SYRINGE 5 ML IVF ×2 (09:00→20:37)
[2024-12-30 11:53] LABS: Procalcitonin* 0.91 ng/mL (<0.50)
[2024-12-30 11:59] LABS: NT Pro B Type NatriureticPept* 10800 pg/mL (See Note)
--- NOTE | 2024-12-30 13:24 | P.IMPN_ITS ---
Assessment and Plan Assessment and plan (1) Urinary tract infection: Problem comment: -UA cloudy, 3+ blood, negative nitrite, 1+ LE, >100 WBC (similar to previous UAs) -UC pending (most recent UCs have been negative despite +appearing UAs) -received 1 dose IV Rocephin in ED -empiric Zosyn and vancomycin for broader coverage with plan to deescalate when able -continue IVF - stopped after developing pulmonary edema. Improved oral intake -discussed with Dr. Cook, Urology, suspects likely UTI despite several recent negative urine cultures given recent cystoscopy attempt and degree of sediment in urine. Agrees with broad-spectrum antibiotics, Rodriguez catheter (hold off on CBI for now if able). Available for further consultation if needed -12/30: Patient has Rodriguez's catheter in CBI was on hold/clamp. Urine color at the back is mildly dark yellow, no gross blood. I resumed his aspirin and Eliquis due to his medical conditions for now but we will hold if he develops hematuria again. Patient has appointment with his urologist on January 12, which I encouraged him (and his ) to attend. -Bl & ur Cx NGTD -Cont empiric Zosyn and vancomycin Status: Acute (2) Hematuria: Problem comment: -frankie hematuria noted shortly after admission -3 way catheter placed in case there is a need for CBI (150 mL UO on insertion) -hold aspirin and apixaban -SCDs for VTE PPX -CBI started last night 12/28. Straw color 12/29 - start clamp trial -12/30: Patient has Rodriguez's catheter in CBI was on hold/clamp. Urine color at the back is mildly dark yellow, no gross blood. I resumed his aspirin and E liquis due to his medical conditions for now but we will hold if he develops hematuria again. Patient has appointment with his urologist on January 12, which I encouraged him (and his ) to attend. Status: Acute (3) Sepsis: Problem comment: -fever, tachypnea, suspected source UTI -did not receive aggressive IVF hydration in setting of known heart failure - still appeared to develop pulmonary edema requiring diuresis -Zosyn and vancomycin for broad coverage, pending UC. BC x2 NGTD -CT chest abdomen pelvis without obvious pulmonary consolidation, notable marked thickening urinary bladder suspicious for moderate cystitis changes -Repeat ECHO ordered 12/29 Status: Acute (4) Fever: Problem comment: -at home temp 103?, 100.9? in ED, 100.6? at midnight 12/29 -suspected UTI -triple swab negative, CXR without evidence of acute pneumonia, no acute URI symptoms -no leukocytosis, procalcitonin 0.52, lactate 0.9 -acute hypoxia, tachypnea resolved -no meningeal s/s -CT chest/abdomen/pelvis concerning for cystitis -UC pending, BCx2 NGTD -Tylenol p.r.n. and IVF -12/30: Afebrile for more than 36 hours. Status: Acute (5) Hypoglycemia: Problem comment: -blood sugar 38 in ED. Improved with oral intake. Monitoring. 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 Status: Acute (9) HFrEF (heart failure with reduced ejection fraction): Problem comment: -BNP 8150 - monitor for fluid overload -ECHO 06/05/2024 Final Impressions: 1. Normal LV size, estimated EF of 45 - 50%. 2. Dysynchronous LV activation pattern. 3. Normal RV size and systolic function. 4. Indeterminate pattern of LV diastolic filling. 5. The mitral valve is normal, mild to moderate regurgitation. 6. No other significant valvular disease. 7. The inferior vena cava is normal sized, respiratory size variation greater than 50%. 12/29 - CT shows developing pulmonary edema, received 1 dose Lasix last night, 1 additional dose today with appropriate urine output Repeat ECHO given fever, bumps in troponin, edema Status: Acute (10) PMR (polymyalgia rheumatica): Problem comment: -currently on 5 mg prednisone daily (has been as low as 3 mg and as high as 10 mg) -stress dose IV hydrocortisone x3 doses Status: Chronic (11) Iron deficiency anemia: Problem comment: -chronic -hemoglobin 10.6, baseline 8.4-10.6 -recent worsening hematuria, IVF hydration, lasix -platelets 122 -monitoring Status: Acute (12) Elevated LFTs: Problem comment: -total bili 1.8, AST 50 - following -CT shows multi-cystic appearance of the pancreas - lipase 118. No abdominal pain, n/v Status: Acute (13) Hypokalemia: Problem comment: -mild, 3.3, continue replacement and follow Status: Acute Total Time Spent Total Time Spent: Today I spent 50 minutes seeing the patient, reviewing Expanse and EPIC notes/diagnostics, discussing the care plan with our care time that includes social work, PT/OT, pharmacy, RT, senior living and documenting my impressions and plan in the medical record. Subjective Date Seen: 12/30/24 Interval history: No acute events overnight. Afebrile for more than 36 hours. Patient has Rodriguez's catheter in CBI was on hold/clamp. Urine color at the back is mildly dark yellow, no gross blood. I resumed his aspirin and Eliquis due to his medical conditions for now but we will hold if he develops hematuria again. Patient has appointment with his urologist on January 12, which I encouraged him (and his ) to attend. Exam Narrative: Exam Narrative: Physical exam GENERAL: Comfortable, no acute distress. HEAD AND NECK: Atraumatic, normocephalic CARDIOVASCULAR: RRR. Normal S1, S2. No murmurs. RESPIRATORY: Clear to auscultation B/L. Good air entry B/L. No wheezes or rhonchi. GASTROINTESTINAL: Not distended, not tender to palpation. NEUROLOGY: Alert, awake. Normal speech. GN: Rodriguez catheter in, CBI on hold. Urine color is yellow (a bit dark yellow). PSYCH: Normal mood, normal affect. Const: Vital Signs, click to edit/add: Vital Signs - 24 hr 12/29/24 15:00 12/29/24 15:00 12/29/24 15:00 Temperature 99.5 F Pulse Rate 69 Pulse Rate [Right Pulse Oximeter] 70 70 Pulse Rate [Right Radial] Respiratory Rate 20 20 Blood Pressure [Ri ght Arm] 116/68 Pulse Oximetry 97 Oxygen Delivery Me thod Room Air 12/29/24 19:00 12/29/24 23:00 12/29/24 23:00 Temperature 98.6 F 97.1 F L Pulse Rate 69 Pulse Rate [Right Pulse Oximeter] 70 70 Pulse Rate [Right Radial] Respiratory Rate 18 18 Blood Pressure [Ri ght Arm] 109/68 128/61 Pulse Oximetry 94 97 Oxygen Delivery Ks thod Room Air Room Air 12/29/24 23:00 12/30/24 03:00 12/30/24 07:35 Temperature 98.6 F 97.8 F Pulse Rate Pulse Rate [Right Pulse Oximeter] 70 71 70 Pulse Rate [Right Radial] 71 Respiratory Rate 18 16 18 Blood Pressure [Ri ght Arm] 117/75 137/76 Pulse Oximetry 96 97 Oxygen Delivery Ks thod Room Air Room Air 12/30/24 11:00 Temperature 97.9 F Pulse Rate Pulse Rate [Right Pulse Oximeter] 70 Pulse Rate [Right Radial] Respiratory Rate 20 Blood Pressure [Ri ght Arm] 123/73 Pulse Oximetry 97 Oxygen Delivery Me thod Room Air Labs Labs: Laboratory Results - last 24 hr 12/30/24 05:52 WBC 7.16 RBC 3.60 L Hgb 9.5 L Hct 29.3 L MCV 81 MCH 26 MCHC 32 Plt Count 112 L Sodium 132 L Potassium 3.5 L Chloride 108 Carbon Dioxide 17 L Anion Gap 7 BUN 28 Creatinine 0.9 Estimated Creat Clear 49.58 Estimated GFR 83 Glucose 185 H Calcium 8.1 L Total Bilirubin 1.3 Direct Bilirubin 0.4 AST 46 H ALT 29 Alkaline Phosphatase 92 NT-Pro-B Natriuret Pep [address]19 H Total Protein 5.3 L Albumin 2.7 L Procalcitonin 0.91 H
[2024-12-30] MEDS: VANCOMYCIN 1.5 GM/300 ML 1.5 GM/300 ML PIGGYBACK IVPB (15:59)
[2024-12-30] MEDS: ROSUVASTATIN CALCIUM 10 MG TABLET 20 MG PO (17:36)
--- NOTE | 2024-12-30 19:15 | PC.NURSE ---
End of Shift: Patient pleasant and cooperative, pleasantly confused. VSS, afebrile. SpO2 maintained above 90% on RA. Rodriguez catheter patent and draining cloudy, straw urine, CBI has been clamped throughout the shift, tolerating well. Denies pain this shift. 1A walker and gait belt. Tolerating regular diet. Bed alarms on and call light within reach.
[2024-12-30] MEDS: APIXABAN 5 MG TABLET PO (20:35)
[2024-12-31] VITALS (7 sets, daily range): BP systolic 113–132; BP diastolic 63–82; PULSE 69–72; RESP 17–94; TEMP 36.6–37.4; O2SAT 92–97
[2024-12-31] MEDS: PIPERACILLIN/TAZOBACTAM 3.375 GM in 0.9 % SODIUM CHLORIDE Mini-bag 100 ML IVPB ×4 (01:13→18:31)
[2024-12-31] MEDS: SODIUM CHLORIDE 0.9 % (FLUSH) 10 ML SYRINGE 5 ML IVF ×5 (01:14→21:40)
[2024-12-31] MEDS: ACETAMINOPHEN 325 MG TABLET PO (01:15)
--- NOTE | 2024-12-31 04:53 | PC.NURSE ---
Shift note: Patient continue to show occasional confusion. Has screaming intermittently. Asking to go to the next room and sleep on the sofa. Patient has been pulling on the Rodriguez. The penile gland appears reddened and tender. Patient screamed when attempted to assess. Rodriguez draining well. Urine was clear at the start of the shift but due to frequent pulling and picking at the Rodriguez, urine color changed to light dolan color which later cleared. Takes pill whole with water.
[2024-12-31] MEDS: lidocaine HCL 2 % JELLY (TOP) STERILE 6 ML UR (06:06)
[2024-12-31 07:11] LABS: Hematocrit* 32.0 % (37.0-53.0); Hemoglobin* 10.2 gm/dL (13.5-17.5); Mean Corpuscular HGB Conc 32 gm/dL (32-36); Mean Corpuscular Hemoglobin 26 pg (26-34); Mean Corpuscular Volume 82 fL (80-100); Red Blood Count* 3.91 m/uL (4.30-5.90); White Blood Count* 6.51 K/uL (4.50-11.00)
[2024-12-31 07:28] LABS: Slide Review Reflex No
[2024-12-31 07:30] LABS: Chloride* 106 mmol/L (96-114); Potassium* 3.5 mmol/L (3.6-5.1); Sodium* 130 mmol/L (135-149)
[2024-12-31 07:33] LABS: Blood Urea Nitrogen* 21 mg/dL (7-30); Creatinine* 0.8 mg/dL (0.5-1.5); Est. Creatinine Clearance* 49.58; Estimated Glomerular Filt Rate 86 ml/min; INR 1.40 (0.91-1.10); Prothrombin Time 18.1 Seconds
[2024-12-31 07:34] LABS: Anion Gap 6 mEq/L (7-15); Calcium* 8.3 mg/dL (8.4-10.6); Carbon Dioxide* 18 mmol/L (20-32); Glucose* 101 mg/dL (60-115)
[2024-12-31] MEDS: TAMSULOSIN HCL 0.4 MG CAPSULE PO (08:43)
[2024-12-31] MEDS: ASPIRIN 81 MG TABLET EC PO (08:43)
[2024-12-31] MEDS: APIXABAN 5 MG TABLET PO ×2 (08:43→21:40)
[2024-12-31] MEDS: METOPROLOL SUCCINATE (XL) 25 MG TAB PO (08:43)
--- NOTE | 2024-12-31 09:45 | CRLHL7_ITS ---
For Patients: As a result of the Century Cures Act, medical imaging exams and procedure reports are released immediately into your electronic medical record. You may view this report before your referring provider. If you have questions, please contact your health care provider. INDICATION: Shortness of breath TECHNIQUE: Single-view chest. COMPARISON: Chest x-ray 12/28/2024 FINDINGS: Enlarged cardiac silhouette. Left atrial appendage clip. Median sternotomy. Left cardiac pacer. Prominent interstitial markings may represent pulmonary edema. No effusion. No pneumothorax. Dictated by Alicia Willis MD @ 12/31/2024 10:23:12 AM (Electronically Signed)
--- NOTE | 2024-12-31 10:54 | PM.IMPN1 ---
Assessment and Plan Assessment and plan (1) Urinary tract infection: Problem comment: -UA cloudy, 3+ blood, negative nitrite, 1+ LE, >100 WBC (similar to previous UAs) -UC pending (most recent UCs have been negative despite +appearing UAs) -received 1 dose IV Rocephin in ED -empiric Zosyn and vancomycin for broader coverage with plan to deescalate when able -continue IVF - stopped after developing pulmonary edema. Improved oral intake -discussed with Dr. Cook, Urology, suspects likely UTI despite several recent negative urine cultures given recent cystoscopy attempt and degree of sediment in urine. Agrees with broad-spectrum antibiotics, Rodriguez catheter (hold off on CBI for now if able). Available for further consultation if needed -12/30: Patient has Rodriguez's catheter w/ CBI was on hold/clamp. Urine color is mildly dark yellow, no gross blood. I resumed his aspirin and Eliquis due to his medical conditions for now but we will hold if he develops hematuria again. -Cont empiric Zosyn and vancomycin -12/31: Cont IV Abx -Bl & ur Cx NGTD -Patient has appointment with his urologist on January 12, which I encouraged him (and his ) to attend. Status: Acute (2) Acute exacerbation of congestive heart failure: Problem comment: -patient has history of heart failure with reduced ejection fraction, had a recent ECHO in May, showing ejection fraction of 45-50% -BNP 8150 --> 10,800 12/29 - CT shows developing pulmonary edema 12/31: Chest x-ray today showing marked pulmonary markings representing pulmonary edema, examination shows crackling mainly on the right side. -Ordered 1 dose of IV Lasix 40 mg. Will assess tomorrow if he needs a similar does or it needs to be increased/decreased. -no need to repeat echo for now as it was done recently. Status: Acute (3) Hematuria: Problem comment: -frankie hematuria noted shortly after admission -3 way catheter placed in case there is a need for CBI (150 mL UO on insertion) -hold aspirin and apixaban -SCDs for VTE PPX -CBI started last night 12/28. Straw color 12/29 - start clamp trial -12/30: Patient has Rodriguez's catheter in CBI was on hold/clamp. Urine color at the back is mildly dark yellow, no gross blood. I resumed his aspirin and Eliquis due to his medical conditions for now but we will hold if he develops hematuria again. Patient has appointment with his urologist on January 12, which I encouraged him (and his ) to attend. -12/31: Continue monitoring. Continue aspirin and Eliquis. Status: Acute (4) Sepsis: Problem comment: -fever, tachypnea, suspected source UTI -did not receive aggressive IVF hydration in setting of known heart failure - still appeared to develop pulmonary edema requiring diuresis -Zosyn and vancomycin for broad coverage, pending UC. BC x2 NGTD -CT chest abdomen pelvis without obvious pulmonary consolidation, notable marked thickening urinary bladder suspicious for moderate cystitis changes -Repeat ECHO ordered 12/29 Status: Acute (5) HFrEF (heart failure with reduced ejection fraction): Problem comment: -ECHO 06/05/2024 Final Impressions: 1. Normal LV size, estimated EF of 45 - 50%. 2. Dysynchronous LV activation pattern. 3. Normal RV size and systolic function. 4. Indeterminate pattern of LV diastolic filling. 5. The mitral valve is normal, mild to moderate regurgitation. 6. No other significant valvular disease. 7. The inferior vena cava is normal sized, respiratory size variation greater than 50%. Status: Acute (6) Fever: Problem comment: -at home temp 103?, 100.9? in ED, 100.6? at midnight 12/29 -suspected UTI -triple swab negative, CXR without evidence of acute pneumonia, no acute URI symptoms -no leukocytosis, procalcitonin 0.52, lactate 0.9 -acute hypoxia, tachypnea resolved -no meningeal s/s -CT chest/abdomen/pelvis concerning for cystitis -UC pending, BCx2 NGTD -Tylenol p.r.n. and IVF -12/30: Afebrile for more than 36 hours. Status: Acute (7) Hypokalemia: Problem comment: -continue replacement and follow Status: Acute (8) Hypoglycemia: Problem comment: -blood sugar 38 in ED. Improved with oral intake. Monitoring. 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 Status: Acute (12) PMR (polymyalgia rheumatica): Problem comment: -currently on 5 mg prednisone daily (has been as low as 3 mg and as high as 10 mg) -stress dose IV hydrocortisone x3 doses Status: Chronic (13) Iron deficiency anemia: Problem comment: -chronic -hemoglobin 10.6, baseline 8.4-10.6 -recent worsening hematuria, IVF hydration, lasix -platelets 122 -monitoring Status: Acute (14) Elevated LFTs: Problem comment: -mild, improverd -CT shows multi-cystic appearance of the pancreas - lipase 118. No abdominal pain, n/v Status: Acute (15) Cyst of pancreas: Problem comment: CT: There is extensive cystic change of the pancreas which may represent extensive sequela of pancreatic pseudocyst formation and/or multiple cystic pancreatic neoplasia. Patient will need to follow up as an outpatient with primary care physician for follow-up and more evaluation and treatment Discussed with his Status: Acute Total Time Spent Total Time Spent: Today I spent 50 minutes seeing the patient, reviewing Expanse and EPIC notes/diagnostics, discussing the care plan with our care time that includes social work, PT/OT, pharmacy, RT, usp and documenting my impressions and plan in the medical record. Subjective Date Seen: 12/31/24 Interval history: No acute events overnight. Patient was tachypneic while laying down flat, on examination he has some crackles mostly on the right side. Patient has Rodriguez's catheter, CBI still on hold/clamp. Urine color mildly pink, no gross blood. Will cont his aspirin and Eliquis. Patient has appointment with his urologist on January 12, which I encouraged him (and his ) to attend. Chest x-ray today showing developing pulmonary edema, will start diuresis. Exam Narrative: Exam Narrative: Physical exam GENERAL: Comfortable, no acute distress. HEAD AND NECK: Atraumatic, normocephalic CARDIOVASCULAR: RRR. Normal S1, S2. No murmurs. RESPIRATORY: Good air entry B/L. +ve crackles cristian Rt sideed. Sat O2 NL on RA. GASTROINTESTINAL: Not distended, not tender to palpation. NEUROLOGY: Alert, awake. Normal speech. PSYCH: Normal mood, normal affect. Const: Vital Signs, click to edit/add: Vital Signs - 24 hr 12/30/24 15:00 12/30/24 15:00 12/30/24 15:00 Temperature 99.2 F Pulse Rate 72 Pulse Rate [Right Pulse Oximeter] 69 Pulse Rate [Right Radial] 71 Respiratory Rate 18 18 Blood Pressure [Ri ght Arm] 123/78 Pulse Oximetry 97 Oxygen Delivery Me thod Room Air 12/30/24 19:00 12/30/24 22:06 12/30/24 22:06 Temperature 100.4 F H 98.5 F Pulse Rate Pulse Rate [Right Pulse Oximeter] 71 75 75 Pulse Rate [Right Radial] Respiratory Rate 18 18 18 Blood Pressure [Ri ght Arm] 120/72 125/79 Pulse Oximetry 98 96 Oxygen Delivery Me thod Room Air Room Air 12/30/24 23:00 12/31/24 01:47 CORK TILE FLOOR LAYER 12/31/24 07:00 Temperature 98.3 F Pulse Rate 70 71 Pulse Rate [Right Pulse Oximeter] 72 Pulse Rate [Right Radial] Respiratory Rate 18 Blood Pressure [Ri ght Arm] 119/71 Pulse Oximetry 92 Oxygen Delivery Me thod Room Air 12/31/24 08:30 12/31/24 08:30 Temperature 98.9 F Pulse Rate Pulse Rate [Right Pulse Oximeter] 70 70 Pulse Rate [Right Radial] Respiratory Rate 24 24 Blood Pressure [Ri ght Arm] 132/82 Pulse Oximetry 97 Oxygen Delivery Me thod Room Air Labs Labs: Laboratory Results - last 24 hr 12/30/24 12/31/24 05:52 07:05 WBC 6.51 RBC 3.91 L Hgb 10.2 L Hct 32.0 L MCV 82 MCH 26 MCHC 32 Plt Count 129 L INR 1.40 H APTT 32 Sodium 130 L Potassium 3.5 L Chloride 106 Carbon Dioxide 18 L Anion Gap 6 L BUN 21 Creatinine 0.8 Estimated Creat Clear 49.58 Estimated GFR 86 Glucose 101 Calcium 8.3 L NT-Pro-B Natriuret Pep 44209 H Procalcitonin 0.91 H
[2024-12-31] MEDS: POTASSIUM CHLORIDE 10 MEQ CAPSULE ER 40 MEQ PO ×3 (10:59→21:38)
[2024-12-31] MEDS: FUROSEMIDE 10 MG/ML inj 40 MG IVP (11:07)
--- NOTE | 2024-12-31 15:10 | PC.NURSE ---
End of Shift: patient pleasant and cooperative, pt has been pleasantly confused this shift. Pt reports seeing someone standing in the mirror as well this shift. VSS, afebrile. SpO2 maintained above 90% on RA. Pt reports feeling SOB this morning, MD notified, EKG complete, lasix given. CBI has been clamped throughout the shift draining straw colored clear urine with some clots. 1A with walker and gait belt. Tolerating regular diet. 2000ml FR
[2024-12-31] MEDS: VANCOMYCIN 1.5 GM/300 ML 1.5 GM/300 ML PIGGYBACK IVPB (16:22)
[2024-12-31] MEDS: ROSUVASTATIN CALCIUM 10 MG TABLET 20 MG PO (17:55)
[2024-12-31] MEDS: INSULIN ASPART 100 UNIT/ML SUBCUT ×2 (17:55→21:47)
--- NOTE | 2024-12-31 19:40 | PC.NURSE ---
End of shift [id number] - RN took over pt care at approximately 1530. Pt alert, oriented to self and intermittently oriented to situation. Pleasant and cooperative, not up during shift. Pt noted to have shallow and rapid breathing periodically, denies SOB. RN repositioned pt with breathing pattern observed to improve. Denies pain, n/v. Rodriguez catheter noted to be patent and draining, no clots or blood observed by RN. R arm skin tear redressed. Family at bedside. Pt appears to be resting comfortably at end of shift with call light within reach.
[2024-12-31] MEDS: MELATONIN 3 MG TABLET PO (21:39)
[2025-01-01] VITALS (10 sets, daily range): BP systolic 124–166; BP diastolic 76–85; PULSE 69–82; RESP 16–22; TEMP 36.4–37.1; O2SAT 94–96
[2025-01-01] MEDS: PIPERACILLIN/TAZOBACTAM 3.375 GM in 0.9 % SODIUM CHLORIDE Mini-bag 100 ML IVPB ×4 (01:44→19:28)
--- NOTE | 2025-01-01 06:00 | PC.NURSE ---
Shift note ([id number]): Patient pleasant and alert. Not oriented to place or time of day at HS. Redirection not effective. Calling out and attempting to get out of bed x1. Was easily redirected at that time. Given PRN Melatonin for sleep. Slept well. Denied pain. ?
[2025-01-01 06:31] LABS: Hematocrit* 30.0 % (37.0-53.0); Hemoglobin* 9.8 gm/dL (13.5-17.5); Mean Corpuscular HGB Conc 33 gm/dL (32-36); Mean Corpuscular Hemoglobin 26 pg (26-34); Mean Corpuscular Volume 81 fL (80-100); Red Blood Count* 3.71 m/uL (4.30-5.90); Slide Review Reflex No; White Blood Count* 6.17 K/uL (4.50-11.00)
[2025-01-01 06:45] LABS: Chloride* 109 mmol/L (96-114); Potassium* 3.6 mmol/L (3.6-5.1); Sodium* 134 mmol/L (135-149)
[2025-01-01 06:48] LABS: Anion Gap 6 mEq/L (7-15); Blood Urea Nitrogen* 18 mg/dL (7-30); Carbon Dioxide* 19 mmol/L (20-32); Creatinine* 0.8 mg/dL (0.5-1.5); Est. Creatinine Clearance* 49.58; Estimated Glomerular Filt Rate 86 ml/min
[2025-01-01 06:49] LABS: Calcium* 8.2 mg/dL (8.4-10.6); Glucose* 151 mg/dL (60-115)
[2025-01-01 08:12] LABS: Lab Add On Test New Spec Needed
[2025-01-01 08:26] LABS: HCO3 VBG 21 mmol/L (21-28); PCO2 VBG 26 mmHG (40-50); PO2 VBG 49.1 mmHG (25-47); pH VBG 7.510 (7.32-7.43)
[2025-01-01] MEDS: FUROSEMIDE 10 MG/ML inj 40 MG IVP (08:59)
[2025-01-01] MEDS: POTASSIUM CHLORIDE 10 MEQ CAPSULE ER 40 MEQ PO ×3 (08:59→20:54)
[2025-01-01] MEDS: SODIUM CHLORIDE 0.9 % (FLUSH) 10 ML SYRINGE 5 ML IVF ×2 (09:00→20:55)
[2025-01-01] MEDS: TAMSULOSIN HCL 0.4 MG CAPSULE PO (09:00)
[2025-01-01] MEDS: ASPIRIN 81 MG TABLET EC PO (09:00)
[2025-01-01] MEDS: METOPROLOL SUCCINATE (XL) 25 MG TAB PO (09:00)
[2025-01-01] MEDS: APIXABAN 5 MG TABLET PO ×2 (09:00→20:53)
--- NOTE | 2025-01-01 12:13 | PM.IMPN1 ---
Assessment and Plan Assessment and plan (1) Urinary tract infection: Problem comment: -UA cloudy, 3+ blood, negative nitrite, 1+ LE, >100 WBC (similar to previous UAs) -UC pending (most recent UCs have been negative despite +appearing UAs) -received 1 dose IV Rocephin in ED -empiric Zosyn and vancomycin for broader coverage with plan to deescalate when able -continue IVF - stopped after developing pulmonary edema. Improved oral intake -discussed with Dr. oCok, Urology, suspects likely UTI despite several recent negative urine cultures given recent cystoscopy attempt and degree of sediment in urine. Agrees with broad-spectrum antibiotics, Rodriguez catheter (hold off on CBI for now if able). Available for further consultation if needed -12/30: Patient has Rodriguez's catheter w/ CBI was on hold/clamp. Urine color is mildly dark yellow, no gross blood. I resumed his aspirin and Eliquis due to his medical conditions for now but we will hold if he develops hematuria again. -Cont empiric Zosyn and vancomycin -12/31: Cont IV Abx -Bl & ur Cx NGTD -01/01: Rodriguez's catheter removed today, urine color is yellowish, no clots and no gross bleeding. -Patient has appointment with his urologist on January 12, which I encouraged him (and his ) to attend. Status: Acute (2) Acute exacerbation of congestive heart failure: Problem comment: -patient has history of heart failure with reduced ejection fraction, had a recent ECHO in May, showing ejection fraction of 45-50% -BNP 8150 --> 10,800 12/29 - CT shows developing pulmonary edema 12/31: Chest x-ray today showing marked pulmonary markings representing pulmonary edema, examination shows crackling mainly on the right side. -Ordered 1 dose of IV Lasix 40 mg. Will assess tomorrow if he needs a similar does or it needs to be increased/decreased. -no need to repeat echo for now as it was done recently. -01/01:his breathing is much better after diuresis. Received another dose of Lasix IV 40 mg -will start the patient on low does Lasix orally tomorrow. Status: Acute (3) Hematuria: Problem comment: -frankie hematuria noted shortly after admission -3 way catheter placed in case there is a need for CBI (150 mL UO on insertion) -hold aspirin and apixaban -SCDs for VTE PPX -CBI started last night 12/28. Straw color 12/29 - start clamp trial -12/30: Patient has Rodriguez's catheter in CBI was on hold/clamp. Urine color at the back is mildly dark yellow, no gross blood. I resumed his aspirin and Eliquis due to his medical conditions for now but we will hold if he develops hematuria again. Patient has appointment with his urologist on January 12, which I encouraged him (and his ) to attend. -12/31: Continue monitoring. Continue aspirin and Eliquis. Status: Resolved (4) Sepsis: Problem comment: -fever, tachypnea, suspected source UTI -did not receive aggressive IVF hydration in setting of known heart failure - still appeared to develop pulmonary edema requiring diuresis -Zosyn and vancomycin for broad coverage, pending UC. BC x2 NGTD -CT chest abdomen pelvis without obvious pulmonary consolidation, notable marked thickening urinary bladder suspicious for moderate cystitis changes -Repeat ECHO ordered 12/29 Status: Acute (5) HFrEF (heart failure with reduced ejection fraction): Problem comment: -ECHO 06/05/2024 Final Impressions: 1. Normal LV size, estimated EF of 45 - 50%. 2. Dysynchronous LV activation pattern. 3. Normal RV size and systolic function. 4. Indeterminate pattern of LV diastolic filling. 5. The mitral valve is normal, mild to moderate regurgitation. 6. No other significant valvular disease. 7. The inferior vena cava is normal sized, respiratory size variation greater than 50%. Status: Acute (6) Fever: Problem comment: -at home temp 103?, 100.9? in ED, 100.6? at midnight 12/29 -suspected UTI -triple swab negative, CXR without evidence of acute pneumonia, no acute URI symptoms -no leukocytosis, procalcitonin 0.52, lactate 0.9 -acute hypoxia, tachypnea resolved -no meningeal s/s -CT chest/abdomen/pelvis concerning for cystitis -UC pending, BCx2 NGTD -Tylenol p.r.n. and IVF -12/30: Afebrile for more than 36 hours. Status: Acute (7) Hypokalemia: Problem comment: -continue replacement and follow Status: Acute (8) Hypoglycemia: Problem comment: -blood sugar 38 in ED. Improved with oral intake. Monitoring. 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 Status: Acute (12) PMR (polymyalgia rheumatica): Problem comment: -currently on 5 mg prednisone daily (has been as low as 3 mg and as high as 10 mg) -stress dose IV hydrocortisone x3 doses Status: Chronic (13) Iron deficiency anemia: Problem comment: -chronic -hemoglobin 10.6, baseline 8.4-10.6 -recent worsening hematuria, IVF hydration, lasix -platelets 122 -monitoring Status: Acute (14) Elevated LFTs: Problem comment: -mild, improverd -CT shows multi-cystic appearance of the pancreas - lipase 118. No abdominal pain, n/v Status: Acute (15) Cyst of pancreas: Problem comment: CT: There is extensive cystic change of the pancreas which may represent extensive sequela of pancreatic pseudocyst formation and/or multiple cystic pancreatic neoplasia. Patient will need to follow up as an outpatient with primary care physician for follow-up and more evaluation and treatment Discussed with his Status: Acute Total Time Spent Total Time Spent: Today I spent 50 minutes seeing the patient, reviewing Expanse and EPIC notes/diagnostics, discussing the care plan with our care time that includes social work, PT/OT, pharmacy, RT, correction and documenting my impressions and plan in the medical record. Subjective Date Seen: 01/01/25 Interval history: No acute events overnight. Patient seen and examined at bedside today his breathing is much better after diuresis. Rodriguez's catheter removed today, urine color is yellowish, no clots and no gross bleeding. Exam Narrative: Exam Narrative: Physical exam GENERAL: Comfortable, no acute distress. HEAD AND NECK: Atraumatic, normocephalic CARDIOVASCULAR: RRR. Normal S1, S2. No murmurs. RESPIRATORY: Clear to auscultation B/L. Good air entry B/L. GASTROINTESTINAL: Not distended, not tender to palpation. NEUROLOGY: Alert, awake, oriented X 3. Normal speech. GN: Rodriguez's catheter removed today, urine color is yellowish. PSYCH: Normal mood, normal affect. Const: Vital Signs, click to edit/add: Vital Signs - 24 hr 12/31/24 15:00 12/31/24 15:00 12/31/24 20:14 Temperature 97.9 F 99.3 F Pulse Rate 69 Pulse Rate [Right Pulse Oximeter] 70 70 Respiratory Rate 28 H 17 Blood Pressure [Ri ght Arm] 119/66 113/76 Pulse Oximetry 97 94 Oxygen Delivery Nv thod Room Air Room Air 12/31/24 21:53 01/01/25 01:34 01/01/25 02:09 Temperature 98.5 F 98.7 F Pulse Rate 69 Pulse Rate [Right Pulse Oximeter] 70 69 Respiratory Rate 94 H 17 Blood Pressure [Ri ght Arm] 118/63 166/78 H Pulse Oximetry 94 94 Oxygen Delivery Nv thod Room Air Room Air 01/01/25 07:00 01/01/25 08:07 01/01/25 11:00 Temperature 98.4 F 98.8 F Pulse Rate 70 Pulse Rate [Right Pulse Oximeter] 71 82 Respiratory Rate 16 18 Blood Pressure [Ri ght Arm] 126/76 130/83 Pulse Oximetry 95 96 Oxygen Delivery Nv thod Room Air Room Air Labs Labs: Laboratory Results - last 24 hr 12/31/24 01/01/25 01/01/25 07:05 06:13 07:52 WBC 6.17 RBC 3.71 L Hgb 9.8 L Hct 30.0 L MCV 81 MCH 26 MCHC 33 Plt Count 136 L VBG pH VBG pCO2 VBG pO2 VBG HCO3 Sodium 134 L Potassium 3.6 Chloride 109 Carbon Dioxide 19 L Anion Gap 6 L BUN 18 Creatinine 0.8 Estimated Creat Clear 49.58 Estimated GFR 86 Glucose 151 H Calcium 8.2 L Magnesium 1.9 Troponin I 0.02 Lab Acknowledgement New Spec Needed A 01/01/25 08:20 WBC RBC Hgb Hct MCV MCH MCHC Plt Count VBG pH 7.510 H VBG pCO2 26 L VBG pO2 49.1 H VBG HCO3 21 Sodium Potassium Chloride Carbon Dioxide Anion Gap BUN Creatinine Estimated Creat Clear Estimated GFR Glucose Calcium Magnesium Troponin I Lab Acknowledgement
[2025-01-01] MEDS: INSULIN ASPART 100 UNIT/ML SUBCUT ×2 (12:54→21:02)
[2025-01-01] MEDS: ACETAMINOPHEN 325 MG TABLET PO ×2 (14:05→20:53)
[2025-01-01] MEDS: VANCOMYCIN 1.5 GM/300 ML 1.5 GM/300 ML PIGGYBACK IVPB (15:47)
[2025-01-01] MEDS: ROSUVASTATIN CALCIUM 10 MG TABLET 20 MG PO (18:16)
--- NOTE | 2025-01-01 19:06 | PC.NURSE ---
The patient is orientated to himself and place only. The patient is noted to be quite anxious regarding cath removal and anticipation of pain, the was bedside.. although the patient still yelled out. The patient was able to void, and is noted to have a gross amount of urgency and frequency with urination. Blood tinged at first, now his urine is noted to be clear. Moves well with Ax1 and RW. The patients visited throughout the day. Eating well, alarms are in place. Call light within reach. Lia EM BSN
[2025-01-01] MEDS: MELATONIN 3 MG TABLET PO (20:54)
[2025-01-02] MEDS: PIPERACILLIN/TAZOBACTAM 3.375 GM in 0.9 % SODIUM CHLORIDE Mini-bag 100 ML IVPB ×2 (00:43→06:53)
[2025-01-02 06:00] VITALS: RESP 20
--- NOTE | 2025-01-02 06:03 | PC.NURSE ---
End of shift report: VSS. Afebrile. Denies pain. On restful night VS overnight. Pt is on 2000 ml fluid restriction. Incont of urine. No signs of hematuria noted. Ambulates A1, GB, W. Bed alarm on, call light within reach.
[2025-01-02 06:20] LABS: Hematocrit* 30.4 % (37.0-53.0); Hemoglobin* 9.8 gm/dL (13.5-17.5); Mean Corpuscular HGB Conc 32 gm/dL (32-36); Mean Corpuscular Hemoglobin 27 pg (26-34); Mean Corpuscular Volume 83 fL (80-100); Red Blood Count* 3.68 m/uL (4.30-5.90); White Blood Count* 7.93 K/uL (4.50-11.00)
[2025-01-02 06:23] LABS: Slide Review Reflex No
[2025-01-02 06:28] LABS: Chloride* 109 mmol/L (96-114); Potassium* 4.0 mmol/L (3.6-5.1); Sodium* 139 mmol/L (135-149)
[2025-01-02 06:31] LABS: Anion Gap 6 mEq/L (7-15); Blood Urea Nitrogen* 23 mg/dL (7-30); Calcium* 8.7 mg/dL (8.4-10.6); Carbon Dioxide* 24 mmol/L (20-32); Creatinine* 0.9 mg/dL (0.5-1.5); Est. Creatinine Clearance* 49.58; Estimated Glomerular Filt Rate 83 ml/min; Glucose* 133 mg/dL (60-115)
[2025-01-02 07:00] VITALS: BP 150/82; PULSE 70; PULSE 74; RESP 20; TEMP 36.5; O2SAT 98
[2025-01-02] MEDS: FUROSEMIDE 20 MG TABLET 40 MG PO (09:22)
[2025-01-02] MEDS: METOPROLOL SUCCINATE (XL) 25 MG TAB PO (09:22)
[2025-01-02] MEDS: POTASSIUM CHLORIDE 10 MEQ CAPSULE ER 20 MEQ PO (09:23)
[2025-01-02] MEDS: ASPIRIN 81 MG TABLET EC PO (09:23)
[2025-01-02] MEDS: APIXABAN 5 MG TABLET PO (09:23)
[2025-01-02] MEDS: TAMSULOSIN HCL 0.4 MG CAPSULE PO (09:23)
--- NOTE | 2025-01-02 10:19 | P.IMPN_ITS ---
Assessment and Plan Assessment and plan (1) Urinary tract infection: Problem comment: -UA cloudy, 3+ blood, negative nitrite, 1+ LE, >100 WBC (similar to previous UAs) -UC pending (most recent UCs have been negative despite +appearing UAs) -received 1 dose IV Rocephin in ED -empiric Zosyn and vancomycin for broader coverage with plan to deescalate when able -continue IVF - stopped after developing pulmonary edema. Improved oral intake -discussed with Dr. Cook, Urology, suspects likely UTI despite several recent negative urine cultures given recent cystoscopy attempt and degree of sediment in urine. Agrees with broad-spectrum antibiotics, Rodriguez catheter (hold off on CBI for now if able). Available for further consultation if needed -12/30: Patient has Rodriguez's catheter w/ CBI was on hold/clamp. Urine color is mildly dark yellow, no gross blood. I resumed his aspirin and Eliquis due to his medical conditions for now but we will hold if he develops hematuria again. -Cont empiric Zosyn and vancomycin -12/31: Cont IV Abx -Bl & ur Cx NGTD -01/01: Rodriguez's catheter removed today, urine color is yellowish, no clots and no gross bleeding. -Patient has appointment with his urologist on January 12, which I encouraged him (and his ) to attend. Status: Acute (2) Acute exacerbation of congestive heart failure: Problem comment: -patient has history of heart failure with reduced ejection fraction, had a recent ECHO in May, showing ejection fraction of 45-50% -BNP 8150 --> 10,800 12/29 - CT shows developing pulmonary edema 12/31: Chest x-ray today showing marked pulmonary markings representing pulmonary edema, examination shows crackling mainly on the right side. -Ordered 1 dose of IV Lasix 40 mg. Will assess tomorrow if he needs a similar does or it needs to be increased/decreased. -no need to repeat echo for now as it was done recently. -01/01:his breathing is much better after diuresis. Received another dose of Lasix IV 40 mg -will start the patient on low does Lasix orally tomorrow. Status: Acute (3) Hematuria: Problem comment: -frankie hematuria noted shortly after admission -3 way catheter placed in case there is a need for CBI (150 mL UO on insertion) -hold aspirin and apixaban -SCDs for VTE PPX -CBI started last night 12/28. Straw color 12/29 - start clamp trial -12/30: Patient has Rodriguez's catheter in CBI was on hold/clamp. Urine color at the back is mildly dark yellow, no gross blood. I resumed his aspirin and Eliquis due to his medical conditions for now but we will hold if he develops hematuria again. Patient has appointment with his urologist on January 12, which I encouraged him (and his ) to attend. -12/31: Continue monitoring. Continue aspirin and Eliquis. Status: Resolved (4) Sepsis: Problem comment: -fever, tachypnea, suspected source UTI -did not receive aggressive IVF hydration in setting of known heart failure - still appeared to develop pulmonary edema requiring diuresis -Zosyn and vancomycin for broad coverage, pending UC. BC x2 NGTD -CT chest abdomen pelvis without obvious pulmonary consolidation, notable marked thickening urinary bladder suspicious for moderate cystitis changes -Repeat ECHO ordered 12/29 Status: Acute (5) HFrEF (heart failure with reduced ejection fraction): Problem comment: -ECHO 06/05/2024 Final Impressions: 1. Normal LV size, estimated EF of 45 - 50%. 2. Dysynchronous LV activation pattern. 3. Normal RV size and systolic function. 4. Indeterminate pattern of LV diastolic filling. 5. The mitral valve is normal, mild to moderate regurgitation. 6. No other significant valvular disease. 7. The inferior vena cava is normal sized, respiratory size variation greater than 50%. Status: Acute (6) Fever: Problem comment: -at home temp 103?, 100.9? in ED, 100.6? at midnight 12/29 -suspected UTI -triple swab negative, CXR without evidence of acute pneumonia, no acute URI symptoms -no leukocytosis, procalcitonin 0.52, lactate 0.9 -acute hypoxia, tachypnea resolved -no meningeal s/s -CT chest/abdomen/pelvis concerning for cystitis -UC pending, BCx2 NGTD -Tylenol p.r.n. and IVF -12/30: Afebrile for more than 36 hours. Status: Acute (7) Hypokalemia: Problem comment: -continue replacement and follow Status: Acute (8) Hypoglycemia: Problem comment: -blood sugar 38 in ED. Improved with oral intake. Monitoring. 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 Status: Acute (12) PMR (polymyalgia rheumatica): Problem comment: -currently on 5 mg prednisone daily (has been as low as 3 mg and as high as 10 mg) -stress dose IV hydrocortisone x3 doses Status: Chronic (13) Iron deficiency anemia: Problem comment: -chronic -hemoglobin 10.6, baseline 8.4-10.6 -recent worsening hematuria, IVF hydration, lasix -platelets 122 -monitoring Status: Acute (14) Elevated LFTs: Problem comment: -mild, improverd -CT shows multi-cystic appearance of the pancreas - lipase 118. No abdominal pain, n/v Status: Acute (15) Cyst of pancreas: Problem comment: CT: There is extensive cystic change of the pancreas which may represent extensive sequela of pancreatic pseudocyst formation and/or multiple cystic pancreatic neoplasia. Patient will need to follow up as an outpatient with primary care physician for follow-up and more evaluation and treatment Discussed with his Status: Acute (16) Urinary retention: Status: Acute Subjective Interval history: No acute events overnight. Patient seen and examined at bedside today his breathing is much better after diuresis. Rodriguez's catheter put today, patient is retaining urine after voiding, more than 300 mL. Exam Narrative: Exam Narrative: Physical exam GENERAL: Comfortable, no acute distress. HEAD AND NECK: Atraumatic, normocephalic CARDIOVASCULAR: RRR. Normal S1, S2. No murmurs. RESPIRATORY: Clear to auscultation B/L. Good air entry B/L. GASTROINTESTINAL: Not distended, not tender to palpation. NEUROLOGY: Alert, awake, Normal speech. PSYCH: Normal mood, normal affect. Const: Vital Signs, click to edit/add: Vital Signs - 24 hr 01/01/25 11:00 01/01/25 15:00 01/01/25 15:30 Temperature 98.8 F 97.5 F L Pulse Rate Pulse Rate [Right Pulse Oximeter] 82 71 71 Pulse Rate [Right Radial] Respiratory Rate 18 16 16 Blood Pressure [Ri ght Arm] 130/83 124/85 Pulse Oximetry 96 96 Oxygen Delivery Me thod Room Air Room Air 01/01/25 19:00 01/01/25 23:00 01/01/25 23:00 Temperature 97.9 F Pulse Rate 72 Pulse Rate [Right Pulse Oximeter] 71 Pulse Rate [Right Radial] 71 Respiratory Rate 22 20 Blood Pressure [Ri ght Arm] 133/79 Pulse Oximetry 96 Oxygen Delivery Me thod Room Air 01/01/25 23:30 01/02/25 06:00 Temperature Pulse Rate Pulse Rate [Right Pulse Oximeter] Pulse Rate [Right Radial] Respiratory Rate 20 20 Blood Pressure [Ri ght Arm] Pulse Oximetry Oxygen Delivery Me thod Labs Labs: Laboratory Results - last 24 hr 01/02/25 06:03 WBC 7.93 RBC 3.68 L Hgb 9.8 L Hct 30.4 L MCV 83 MCH 27 MCHC 32 Plt Count 159 Sodium 139 Potassium 4.0 Chloride 109 Carbon Dioxide 24 Anion Gap 6 L BUN 23 Creatinine 0.9 Estimated Creat Clear 49.58 Estimated GFR 83 Glucose 133 H Calcium 8.7
[2025-01-02] MEDS: lidocaine HCL 2 % JELLY (TOP) STERILE 6 ML TOPICAL (11:14)
[2025-01-02] MEDS: SODIUM CHLORIDE 0.9 % (FLUSH) 10 ML SYRINGE 5 ML IVF (11:15)
[2025-01-02] MEDS: lidocaine HCL 2 % JELLY (TOP) STERILE 6 ML UR (11:18)
--- NOTE | 2025-01-02 11:23 | PC.SOCIAL ---
Discharge plan: Met with and pt regarding d/c plan. plans for pt to come home at discharge and she is his caregiver. shared she provides 24/ supervision at home. Provided with list of manager in home care agencies and [employer] who she could contact to hire assistance at home. is interested in hiring care for a few hours once a week so that she is able to get out and do things she enjoys with pt still having supervision at home. had indicated that if pt needs more care than pt can provide at home, she would want him at the [facility]. Provided with written information on levels of care and cost in case she is interested in this in the future. is aware and agrees with plan for out-pt PT/OT at [facility] where he has been receiving out-pt therapy prior to hospital admission. 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
--- NOTE | 2025-01-02 13:45 | PC.NURSE ---
Discharge Note CCU3 Patient was pleasant and cooperative throughout shift. VSS. Afebrile. A&Ox2. SBA with walker. Folley in place. Education provided to patient and spouse on catheter folley care, medications, signs and symptoms. Patient discharged at 13:10 accompanied by spouse.
--- NOTE | 2025-01-02 18:47 | P.DS_ITS ---
DS: Providers Provider Date Seen: 01/02/25 Date of admission: 12/28/24 08:05 Primary care physician: Bari Toscano MD Admitting Clinician: Nettie Carrera MD Consults: 12/28/24 11:24 Consult to Occupational Therapy [CONS] Routine Comment: Reason(s) for OT Consult:: Evaluate and Treat Any Restrictions?:: No Restrictions Consult to Physical Therapy [CONS] Routine Comment: Reason(s) for PT Consult:: Evaluate and Treat Any Restrictions?:: No Restrictions Consult to [employer] [CONS] Routine Comment: Reason for Consult:: Social Service Consult Attending Physician on discharge: Nettie Carrera MD DS: Diagnosis Discharge Diagnosis (1) Urinary tract infection: Status: Acute Problem details: -UA cloudy, 3+ blood, negative nitrite, 1+ LE, >100 WBC (similar to previous UAs) -UC pending (most recent UCs have been negative despite +appearing UAs) -received 1 dose IV Rocephin in ED -empiric Zosyn and vancomycin for broader coverage with plan to deescalate when able -continue IVF - stopped after developing pulmonary edema. Improved oral intake -discussed with Dr. Cook, Urology, suspects likely UTI despite several recent negative urine cultures given recent cystoscopy attempt and degree of sediment in urine. Agrees with broad-spectrum antibiotics, Rodriguez catheter (hold off on CBI for now if able). Available for further consultation if needed -12/30: Patient has Rodriguez's catheter w/ CBI was on hold/clamp. Urine color is mildly dark yellow, no gross blood. I resumed his aspirin and Eliquis due to his medical conditions for now but we will hold if he develops hematuria again. -Cont empiric Zosyn and vancomycin -12/31: Cont IV Abx -Bl & ur Cx NGTD -01/01: Rodriguez's catheter removed today, urine color is yellowish, no clots and no gross bleeding. -Patient has appointment with his urologist on January 12, which I encouraged him (and his ) to attend. (2) Acute exacerbation of congestive heart failure: Status: Acute Problem details: -patient has history of heart failure with reduced ejection fraction, had a recent ECHO in May, showing ejection fraction of 45-50% -BNP 8150 --> 10,800 12/29 - CT shows developing pulmonary edema 12/31: Chest x-ray today showing marked pulmonary markings representing pulmonary edema, examination shows crackling mainly on the right side. -Ordered 1 dose of IV Lasix 40 mg. Will assess tomorrow if he needs a similar does or it needs to be increased/decreased. -no need to repeat echo for now as it was done recently. -01/01:his breathing is much better after diuresis. Received another dose of Lasix IV 40 mg -01/02: Resume previous home Lasix dose orally + K+ supplementation. (3) Hematuria: Status: Resolved Problem details: -frankie hematuria noted shortly after admission -3 way catheter placed in case there is a need for CBI (150 mL UO on insertion) -hold aspirin and apixaban -SCDs for VTE PPX -CBI started last night 12/28. Straw color 12/29 - start clamp trial -12/30: Patient has Rodriguez's catheter in CBI was on hold/clamp. Urine color at the back is mildly dark yellow, no gross blood. I resumed his aspirin and Eliquis due to his medical conditions for now but we will hold if he develops hematuria again. Patient has appointment with his urologist on January 12, which I encouraged him (and his ) to attend. -12/31: Continue monitoring. Continue aspirin and Eliquis. 01/01 -4: clear urine, no blood (4) Urinary retention: Status: Acute Problem details: DC home w/ foleys cath (5) Sepsis: Status: Acute Problem details: -fever, tachypnea, suspected source UTI -did not receive aggressive IVF hydration in setting of known heart failure - still appeared to develop pulmonary edema requiring diuresis -Zosyn and vancomycin for broad coverage, pending UC. BC x2 NGTD -CT chest abdomen pelvis without obvious pulmonary consolidation, notable marked thickening urinary bladder suspicious for moderate cystitis changes -Repeat ECHO ordered 12/29 (6) HFrEF (heart failure with reduced ejection fraction): Status: Acute Problem details: -ECHO 06/05/2024 Final Impressions: 1. Normal LV size, estimated EF of 45 - 50%. 2. Dysynchronous LV activation pattern. 3. Normal RV size and systolic function. 4. Indeterminate pattern of LV diastolic filling. 5. The mitral valve is normal, mild to moderate regurgitation. 6. No other significant valvular disease. 7. The inferior vena cava is normal sized, respiratory size variation greater than 50%. (7) Fever: Status: Acute Problem details: -at home temp 103?, 100.9? in ED, 100.6? at midnight 12/29 -suspected UTI -triple swab negative, CXR without evidence of acute pneumonia, no acute URI symptoms -no leukocytosis, procalcitonin 0.52, lactate 0.9 -acute hypoxia, tachypnea resolved -no meningeal s/s -CT chest/abdomen/pelvis concerning for cystitis -UC pending, BCx2 NGTD -Tylenol p.r.n. and IVF -12/30: Afebrile for more than 36 hours. (8) Hypokalemia: Status: Acute Problem details: -continue replacement and follow (9) Hypoglycemia: Status: Resolved Problem details: -blood sugar 38 in ED. Improved with oral intake. Monitoring. 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 (13) PMR (polymyalgia rheumatica): Status: Chronic Problem details: -currently on 5 mg prednisone daily (has been as low as 3 mg and as high as 10 mg) -stress dose IV hydrocortisone x3 doses (14) Iron deficiency anemia: Status: Acute Problem details: -chronic -hemoglobin 10.6, baseline 8.4-10.6 -recent worsening hematuria, IVF hydration, lasix -platelets 122 -monitoring (15) Elevated LFTs: Status: Acute Problem details: -mild, improverd -CT shows multi-cystic appearance of the pancreas - lipase 118. No abdominal pain, n/v (16) Cyst of pancreas: Status: Acute Problem details: CT: There is extensive cystic change of the pancreas which may represent extensive sequela of pancreatic pseudocyst formation and/or multiple cystic pancreatic neoplasia. Patient will need to follow up as an outpatient with primary care physician for follow-up and more evaluation and treatment Discussed with his DS: Summary Hospital Course Hospital Course: Patient w/ history of DM, CAD s/p CABG, heart failure with reduced ejection fraction, Afib on AC, PMR who presents w/ urinary symptoms s/p recent incomplete cystoscopy. pt was treated for UTI w/ broad spectrum IV Abx and his symptoms improved. Hematuria found and urology consulted over the phone and rec CBI. after it resolved a voiding trial done but pt founf w/ urinary retention, DC home w/ cath. F/up w/ urology on Jan 12. Hypokalemia Tx w/K+ replacement. Also, Pt developed SOB, CT showed developing pulmonary edema, pt Dxed w/ acute exacerbation of CHF. Diuressis w/ IV lasix done, pt improved. Resume previous ho me Lasix dose (40 mg QD) orally + K+ supplementation. Status at Discharge Functional status at discharge: uses cane/walker Overall status at discharge: patient is progressing back to baseline Time Spent with Patient Time attestation: Total time spent providing and/or coordinating discharge services: Exam Narrative: Exam Narrative: GENERAL: Comfortable, no acute distress. HEAD AND NECK: Atraumatic, normocephalic CARDIOVASCULAR: RRR. Normal S1, S2. No murmurs. RESPIRATORY: Clear to auscultation B/L. Good air entry B/L. GASTROINTESTINAL: Not distended, not tender to palpation. NEUROLOGY: Alert, awake, Normal speech. PSYCH: Normal mood, normal affect. Const: Vital Signs, click to edit/add: Vital Signs - 24 hr 01/01/25 19:00 01/01/25 23:00 01/01/25 23:00 Temperature 97.9 F Pulse Rate 72 Pulse Rate [Right Pulse Oximeter] 71 Pulse Rate [Right Radial] 71 Respiratory Rate 22 20 Blood Pressure [Ri ght Arm] 133/79 Pulse Oximetry 96 Oxygen Delivery Me thod Room Air 01/01/25 23:30 01/02/25 06:00 01/02/25 07:00 Temperature 97.7 F Pulse Rate Pulse Rate [Right Pulse Oximeter] 74 Pulse Rate [Right Radial] Respiratory Rate 20 20 20 Blood Pressure [Ri ght Arm] 150/82 H Pulse Oximetry 98 Oxygen Delivery Me thod Room Air 01/02/25 07:00 Temperature Pulse Rate 70 Pulse Rate [Right Pulse Oximeter] Pulse Rate [Right Radial] Respiratory Rate Blood Pressure [Ri ght Arm] Pulse Oximetry Oxygen Delivery Me thod DS: Data Data Completed and Pending Labs on day of discharge: Labs from last 24 hours 01/02/25 06:03 WBC 7.93 RBC 3.68 L Hgb 9.8 L Hct 30.4 L MCV 83 MCH 27 MCHC 32 Plt Count 159 Sodium 139 Potassium 4.0 Chloride 109 Carbon Dioxide 24 Anion Gap 6 L BUN 23 Creatinine 0.9 Estimated Creat Clear 49.58 Estimated GFR 83 Glucose 133 H Calcium 8.7 Discharge Plan Discharge Disposition: Home w/ Parent or Adult Date of Admission: 12/28/24 08:05 Attending Provider on Discharge: Lala Lee Primary Care Provider: Bari Toscano Condition: Stable Anticipated Discharge Date/Time: 01/02/25 09:30 Discharge Medications: New potassium chloride 10 mEq Capsule, Extended Release 20 meq PO DAILY 30 Days Qty: 60 0RF furosemide 20 mg Tablet 40 mg PO DAILY@0800 30 Days Qty: 60 0RF Continued tamsulosin 0.4 mg capsule 0.4 mg PO DAILY acetaminophen 500 mg capsule 1,000 mg PO BID glipizide 10 mg tablet extended release 24hr 20 mg PO DAILY nitroglycerin 0.4 mg tablet, sublingual 0.4 mg sublingual Q5M PRN metoprolol succinate 25 mg tablet extended release 24 hr 25 mg PO DAILY rosuvastatin 20 mg tablet 20 mg PO QPM Jardiance 10 mg tablet 10 mg PO DAILY (DME) True Metrix Glucose Test Strip Strip MISCELLANEOUS Patient Comments: TEST 2 TIMES PER WEEK. metformin 500 mg tablet extended release 24 hr 2,000 mg PO QPM Patient Comments: TAKE 4 TABLETS (2,000 MG) BY MOUTH ONCE DAILY WITH EVENING MEAL. Eliquis 5 mg tablet 5 mg PO Q12H Patient Comments: TAKE 1 TABLET (5 MG) BY MOUTH TWO TIMES DAILY. aspirin 81 mg capsule 81 mg PO DAILY cholecalciferol (vitamin D3) 1,250 mcg (50,000 unit) capsule 1,250 mcg PO Q7D prednisone 5 mg tablet 5 mg PO DAILY tadalafil 5 mg tablet 5 mg PO HS Discharge Orders: Discharge Order (Routine); Ordered 01/02/25 Ordered By: Lala Lee Patient Education: Furosemide (By mouth), Potassium Chloride (By mouth), Ur inary Tract Infection in Men (DC) Additional Instructions: -You need to follow-up with your primary care physician within 5-7 days of discharge. You need to repeat labs including potassium as we resumed his previous dose of Lasix orally 40 mg once a day. We replaced his potassium at hospital but we added the same dose that he used to be at home when he was on Lasix which is 20 mEq of oral potassium once a day. Lasix was resumed because the patient developed pulmonary edema during his stay at the hospital. -discuss with your primary care physician the dosing and frequency of Lasix and potassium accordingly. -discuss with your primary care physician the incidental findings of abdominal CT scan showing multiple cysts in his pancreas which could be neoplasia, more workup to be done if found necessary as an outpatient. -patient to be discharged on Rodriguez's catheter because he was retaining urine after a voiding trial. Needs follow-up with both primary care and Urology. -follow-up with your urologist and keep your appointment on January 12 with your urologist. -patient was prescribed an antibiotic from outpatient care clinic according to his , they told her that his previous urine culture grew some bacteria and that this antibiotic should cover it. Patient to take 3 more days of that antibiotic as he got broad-spectrum IV antibiotic here at our facility for 4 days. Activity Level: Activity as Tolerated Discharge Diet: Heart Healthy (2 gm sodium, low fat) and 2000 ml Fluid Restriction Follow Up Appointments: Bari Toscano MD [Primary Care Provider, Family Practice] - 01/11/25 2:05 pm Referral Note: [facility] for hospital follow-up. Repeat labs including potassium within 5 days Problems: Urinary tract infection; Hypokalemia; Acute exacerbation of congestive heart failure; Cyst of pancreas Forms: MyHealth Info Instructions
== END 2025-01-02 13:10 | disposition home or self-care (01) | DRG 871 ==
LOC: ED 07:05 → MEDSURG 08:05
PROVIDERS: Internal Medicine; Student in an Organized Health Care Education/Training Program; Admitting Provider Physician Assistant; Emergency Provider Emergency Medicine; PCP Family Medicine; Visit Provider Family Medicine
DX: A41.9 Sepsis, unspecified organism (principal); I50.23 Acute on chronic systolic (congestive) heart failure; N39.0 Urinary tract infection, site not specified; K86.2 Cyst of pancreas; I11.0 Hypertensive heart disease with heart failure; C61 Malignant neoplasm of prostate; E11.649 Type 2 diabetes mellitus with hypoglycemia without coma; R31.9 Hematuria, unspecified; D50.9 Iron deficiency anemia, unspecified; E87.6 Hypokalemia; I48.0 Paroxysmal atrial fibrillation; N40.1 Benign prostatic hyperplasia with lower urinary tract symptoms; R33.8 Other retention of urine; I44.1 Atrioventricular block, second degree; I25.10 Atherosclerotic heart disease of native coronary artery without angina pectoris; M35.3 Polymyalgia rheumatica; Z79.01 Long term (current) use of anticoagulants; Z79.82 Long term (current) use of aspirin; Z79.84 Long term (current) use of oral hypoglycemic drugs; Z95.1 Presence of aortocoronary bypass graft; Z95.0 Presence of cardiac pacemaker
CPT/HCPCS: 36415; 51701; 51702; 71045; 71260; 74177; 80048; 80053; 80076; 81001; 81003; 82803; 82947; 82962; 83605; 83690; 83735; 83880; 84145; 84484; 85025; 85027; 85610; 85730; 87040; 87086; 87631; 93005; 93306; 94761; 97110; 97116; 97162; 97165; 97530; 97535; 99285; 99291; A9270; J0696; J1171; J1720; J1938; J2543; J3375; J7030; J7512; Q9957; Q9967

== ENCOUNTER 2025-01-05 10:50 | Emergency (ER) | payer MEDICARE, SELFPAY ==
[2025-01-05] VITALS (17 sets, daily range): BP systolic 97–119; BP diastolic 59–71; PULSE 70–73; RESP 20; TEMP 36.6; O2SAT 89–98; BMI 30.2
--- OUTSIDE RECORDS SUMMARY | 2025-01-05 10:52 | XMS_ITS | Continuity of Care Document ---
Author Organization [place] [facility] Address [address] [place] [address] Care Team Providers Care Color Buffer Name Role Phone LINDSAY SANFORD Referring Provider [phone] Assessment No assessment recorded. Plan of Treatment Reminders Order Date Submit Date Provider Last Modified By Organization Details Last Modified Time Details Appointments [facility] 60 2024 02:00P M Louis Cook MD Not available Not available Not available PSA 10 2025 01:30P M [facility] Not available Not available Not available ESTABL ISHED 10 2025 01:50P M Louis Cook MD Not available Not available Not available Lab PSA, serum or plasma 2024 025 [place] [facility], [address], [place], [address], 12/05/2024 12:15:11 PSA, total, serum or plasma 2024 025 [facility], [address], [place], [address], 12/05/2024 13:23:25 Referral None record ed. Procedures None record ed. Surgeries None record ed. Imaging CT, urogra m - PLEASE CALL PT TO CLARIBEL BERGMAN 2024 025 OLYA Louis [facility], [address], [place], [address], 12/13/2024 11:02:23 Medication Orders tadala maureen 5 mg tablet 2024 025 [facility], [address] [place], [address], 12/05/2024 14:50:32 Patient TargetsNo targets recorded. Patient [...] for provi gricelda revie w. Not Available [facility] [address], [place], [address], 11/11/2024 10:45:08 11/11/1911/10/2024 urina lysis , dipst ick BLOOD Large (250 RBC/uL ) Not Available [facility] [address], [place], [address], 11/10/2024 11:17:20 11/11/1911/10/2024 urina lysis , dipst ick NITRITES Negati ve Not Available [facility] [address], [place], [address], 11/10/2024 11:17:20 11/11/1911/10/2024 urina lysis , dipst ick LEUKOCYTES Small (25 WBC/uL ) Not Available [facility] [address], [place], [address], 11/10/2024 11:17:20 12/06/19 25 12/05/2024 PSA, serum or plasm a PSA 13.7ng /mL 0-4.0 NG/mL Not Available [facility] [address], [place], [address], 11/22/2024 15:45:12 12/14/19 25 12/12/2024 CT, urogr am No observ ation record ed. [facility] [address], [place], [address], 12/18/2024 14:28:50 Result Notes None recorded. Procedures Surgical History Date Name Laterality Status Provider Name and Address Organization Details Recorded Time 5 Cystoscopy- male completed Louis Cook MD [address] [place] [address],[address], [place], [address], [facility] 12/26/2024 19:09:00 5 Keflex post Cysto completed Carlos Enrique falcon [facility] 12/26/2024 13:31:05 5 Urinalysis completed Carlos Enrique falcon [facility] 12/26/2024 13:30:59 5 SEED LABORATORY TECHNICIAN/blood draw completed Carlos Enrique falcon [facility] 12/05/2024 12:14:49 5 Bladder Scan completed Louis Cook MD [address] [place] [address],[address], [place], [address], [facility] 12/05/2024 12:32:40 5 Urine Culture completed Meli Rowan [facility] 11/10/2024 11:16:59 5 Urinalysis completed Meli Rowan [facility] 11/10/2024 11:16:57 5 Urine Culture completed Anastasiia Ingram [facility] 09/25/2024 12:27:34 5 Urinalysis completed Anastasiia Ingram [facility] 09/25/2024 11:46:34 5 Bladder Scan completed Anastasiia Ingram [facility] 09/25/2024 11:46:26 5 Blood Draw/SEED LABORATORY TECHNICIAN/PSA RESULTS completed Louis Cook MD [address] [place] [address],[address], [place], [address], [facility] 05/30/2024 12:41:37 4 Blood Draw/SEED LABORATORY TECHNICIAN/PSA RESULTS completed Carlos Enrique falcon [facility] 10/11/2023 10:18:27 3 Heart Surgery completed Louis Cook MD [address] [place] [address],[address], [place], [address], [facility] 09/28/2022 16:37:35 procedure on spine completed Louis Cook MD [address] [place] [address],[address], [place], [address], [facility] 09/28/2022 16:37:23 Imaging Results None [...] every 12 hours by oral route for 7 days. 2024 active Not Available Not Available Not Avai lable triamcinolo ne acetonide 0.1 % topical cream [...] Updated DateTime 12/05/2024 175.26 cm 31 kg/m2 68947.4 g Louis Cook MD [address] [place] [address],[facility] [address], [place], [address] 12/05/2024 12:32:21 Social History Question Answer Notes LastModified by Organizat Getting-in Details LastModified Time Tobacco Smoking Status Former Smoker Louis Cook MD [address] [place] [address],[facility] [address], [place], [address], [facility] 09/28/2022 16:37:00 What Is Your [...] quadrivalent, PF 3 completed Louis Cook MD [address] [place] [address],[address], [address] [place] [address] Urology 04/26/2023 10:59:30 RSV, recombinant, protein subunit RSVpreF, adjuvant reconstituted, 0.5 mL, PF 3 completed Louis Cook MD [address] [place] [address],[address], [address], [facility] 04/26/2023 10:59:31 COVID-19, mRNA, LNP-S, PF, 50 mcg/0.5 mL 3 completed Louis Cook MD [address] [place] [address],[address], [address], [facility] 04/26/2023 10:59:31 COVID-19, mRNA, LNP-S, PF, 50 mcg/0.5 mL 4 completed Not Available [facility] 12/26/2024 13:30:47 COVID-19, mRNA, LNP-S, PF, 50 mcg/0.5 mL 4 completed Not Available [facility] 12/26/2024 13:30:47 Influenza, adjuvanted, trivalent, PF 4 completed Not Available [facility] 12/26/2024 13:30:47 COVID-19, mRNA, LNP-S, PF, 50 mcg/0.5 mL 5 completed Not Available [facility] 12/26/2024 13:30:47 IPV [address] [facility] 01/25/2023 09:28:19 Influenza, adjuvanted, trivalent, PF [address] [facility] 01/25/2023 09:28:19 Influenza, adjuvanted, trivalent, PF 9 completed Susana Allar null, [facility] 01/25/2023 09:28:19 Influenza, adjuvanted, trivalent, PF 8 completed Susana Allar null, [facility] 01/25/2023 09:28:19 zoster recombinant 0 completed Susana Allar null, [facility] 01/25/2023 09:28:19 zoster recombinant 9 completed Susana Allar null, [facility] 01/25/2023 09:28:19 Influenza, adjuvanted, quadrivalent, PF 0 completed Susana Allar null, [facility] 01/25/2023 09:28:19 Influenza, adjuvanted, quadrivalent, PF 2 completed Susana Allar null, [facility] 01/25/2023 09:28:19 Influenza, adjuvanted, quadrivalent, PF 1 completed Susana Allar null, [facility] 01/25/2023 09:28:19 COVID-19, mRNA, LNP-S, PF, 100 mcg/0.5mL dose or 50 mcg/0.25mL dose 1 completed Susana Allar null, [facility] 01/25/2023 09:28:19 COVID-19, mRNA, LNP-S, PF, 100 mcg/0.5mL dose or 50 mcg/0.25mL dose 1 completed Susana Allar null, [facility] 01/25/2023 09:28:19 COVID-19, mRNA, LNP-S, PF, 100 mcg/0.5mL dose or 50 mcg/0.25mL dose 1 completed Susana Allar null, [facility] 01/25/2023 09:28:19 Pneumococcal conjugate PCV20, polysaccharide [id number] conjugate, adjuvant, PF 3 completed Susana Allar null, [facility] 01/25/2023 09:28:19 COVID-19, mRNA, LNP-S, PF, 30 mcg/0.3 mL dose, octavia-sucrose 2 completed Susana Allar null, [facility] 01/25/2023 09:28:19 COVID-19, mRNA, LNP-S, bivalent, PF, 50 mcg/0.5 mL or 25mcg/0.25 mL dose 3 completed Susana Allar null, [facility] 01/25/2023 09:28:19 COVID-19, mRNA, LNP-S, bivalent, PF, 50 mcg/0.5 mL or 25mcg/0.25 mL dose 2 completed Susaan Allar null, [facility] 01/25/2023 09:28:19 pneumococcal polysaccharide PPV23 6 completed Susana Allar null, [facility] 01/25/2023 09:28:19 pneumococcal polysaccharide PPV23 6 completed Susana Allar null, [facility] 01/25/2023 09:28:19 Tdap 1 completed Susana Allar null, [facility] 01/25/2023 09:28:19 Tdap 1 completed Susana Allar null, [facility] 01/25/2023 09:28:19 Pneumococcal conjugate PCV 13 5 completed Susana Allar null, [facility] 01/25/2023 09:28:19 yellow fever live 2 completed Susana Allar null, [facility] 01/25/2023 09:28:19 yellow fever live 1 completed Susana Allar null, [facility] 01/25/2023 09:28:19 zoster live 7 completed Susana Allar null, [facility] 01/25/2023 09:28:19 Influenza, high-dose, trivalent, PF 4 completed Susana Allar null, [facility] 01/25/2023 09:28:19 Influenza, high-dose, trivalent, PF 6 completed Susana Allar null, [facility] 01/25/2023 09:28:19 Influenza, high-dose, trivalent, PF 5 completed Susana Allar null, [facility] 01/25/2023 09:28:19 Influenza, split virus, trivalent, preservative 2 completed Susana Allar null, [facility] 01/25/2023 09:28:19 Influenza, split virus, trivalent, preservative 1 completed Susana Allar null, [facility] 01/25/2023 09:28:19 Influenza, split virus, trivalent, preservative 6 completed Susana Allar null, [facility] 01/25/2023 09:28:19 Influenza, split virus, trivalent, preservative 4 completed Susana Allar null, [facility] 01/25/2023 09:28:19 Influenza, split virus, trivalent, preservative 3 completed Susana Allar null, [facility] 01/25/2023 09:28:19 Influenza, split virus, trivalent, preservative 0 completed Susana Allar null, [facility] 01/25/2023 09:28:19 Influenza, split virus, trivalent, preservative 7 completed Susana Allar null, [facility] 01/25/2023 09:28:19 Influenza, split virus, trivalent, preservative 5 completed Susana Allar null, [facility] 01/25/2023 09:28:19 Td (adult), 5 Lf tetanus toxoid, preservative free, adsorbed 5 completed Susana Allar null, [facility] 01/25/2023 09:28:19 typhoid, ViCPs 2 completed Susana Allar null, [facility] 01/25/2023 09:28:19 typhoid, ViCPs 1 completed Susana Allar null, [facility] 01/25/2023 09:28:19 Hep A-Hep B 2 completed Susana Allar null, [facility] 01/25/2023 09:28:19 Hep A-Hep B 2 completed Susana Guallpalulu walter, NATALIE - [facility] 01/25/2023 09:28:19 Hep A-Hep B 2 completed Susana Guallpalulu walter, NATALIE - [facility] 01/25/2023 09:28:19 Past Encounters Encounter ID Performer Location Encounter Start Date Encounter Closed Date Diagnosis/Indication Diagnosis SNOMED-CT Code Diagnosis ICD10 Code Diagnosis IMO Codes Diagnosis Note [id number] ANTOINE RAMOS PA-C [facility] [address] [place] [address] 11/10/2024 10:42:48 11/17/2024 15:53:02 Urinary symptoms 305481822 R39.9 [id number] Louis Cook MD [facility] [address] [place] [address] 12/05/2024 12:10:36 12/07/2024 11:21:36 Malignant neoplasm of prostate [id number] C61 1. Prostate cancer- cT1c - [place] 3+3 = 6 - on expectant management - PSA (13.7) - increased - has fluctuated over the years- Follow-up in 3 months with PSA(if PSA increases significan t - check Prostate MRI and recommend TRUS bx Increased frequency of urination [id number] R35.0 2. Urinary frequency- he is off Lasix- incomplete emptying (188 mL)- stop Gemtesa 75 mg daily Lower urin robbin tract symptoms due to benign prostatic hypertrophy 9465244606 9101 N40.1 4. BPH- high PVR = 188 mL- continue Flomax 0.4 mg daily- add Cialis 5 mg daily- check Bladder scan at Follow-up Microscopic hematuria 19 4000896 R31.29 [id number] 3. Microscopi c hematuria- check CT Urogram- will need Cystoscopy in near future Health Concerns Section Related Observation LastModified by Organization Detai ls LastModified Time None Recorded Concern Status LastModified by Organization Details LastModified Time None Recorded Payers Encounter Date Sequence Insurance Name Policy Number Policy Sam Covered Member ID Sam Member ID Guarantor Name 12/05/2024 1 [place] ([place]IC[place]PO) [id number] Enrike [id number] Enrike Coleman Notes Date Note Type Note Provider Name and Address Organization Details Recorded Time 12/05/2024 text/html 84 yo male with history of A.fib (on Eliquis), HTN, DM, memory loss, PMR, BPH, and Prostate cancer - T1c - [place] 3+3 = 6 - involving 1/10 cores (< 5%) on Left - TRUS bx (12/15/12) by Dr. Herrera - on expectant management. Prostate MRI (2014) revealed a PI-RADS 2 lesion - underwent MRI bx (10/31/14) of lesion at [facility] - benign. No family H/O [...] hours during the day and 1-2x/night. 09/25/24 [facility] - He presents for worsening urge incontinence. [...] 11.80 (09/15/22)- 9.08 (04/16/23) Louis Cook MD [address] [facility] [facility],[address], [place], [address], [facility] 12/05/2024 13:50:09
--- OUTSIDE RECORDS SUMMARY | 2025-01-05 10:52 | XMS_ITS | Encounter Summary ---
Author Organization [facility] Address [address] [place] [address] Care Team Providers Care Style Advisor Name Role Phone Clinic, Not Listed Unavailable Unavailable Bari Toscano MD Primary Care Provider America Lim PA-C Unavailable [phone] Encounter Details Date Type Department Care Team (Late st Contact Info) Description 10/20/2024 Results Follow-Up [facility] - [address] [place] [phone] America Lim PA-C [address] [place] [address] [place] [address] METHYLMALONIC ACID, SERUM ([facility]), TSH ([facility]), VITAMIN [...] deficiency documented in this encounter Care Teams Style Advisor Relationship Specialty Start Date End Date Clinic, Not Listed PCP - Primary Care Clinic 04/06/06 Bari Toscano MD [address] [place] [address] PCP - General Family Medicine 08/30/24 America Lim PA-C [address] [facility] [address] [place] [address] Neurology 08/30/24 documented as of this encounter
--- OUTSIDE RECORDS SUMMARY | 2025-01-05 10:52 | XMS_ITS | Clinical Summary ---
Author Organization [facility] Address [address] [place] [address] Care Team Providers Care Pv Design And Installation Technician Name Role Phone Clinic, Not Listed Unavailable Unavailable Bari Toscano MD Primary Care Provider America Lim PA-C Unavailable [phone] Allergies No known active allergies Medications acetaminophen [...] Description 11/16/2024 7:30 AM CDT Ancillary Procedure [address] [place] [address] [id number] Memory loss or impairment 10/20/2024 Results Follow-Up [address] [place] [address] [phone] America Lim PA-C METHYLMALONIC ACID, SERUM ([facility]), TSH ([facility]), VITAMIN D, 25-HYDROXY ([facility]), Additional followed-up results: 5 10/09/2024 2:00 PM CDT Office Visit [facility] [address] [place] [address] America Lim PA-C Memory loss [...] HgbA1C 1940 Yearly Review of HCD 02/21/1988 Influenza Vaccine (#1) 2024 , 01/06/2023, 11/10/2021, Additional history exists Medicare Wellness Visit 06/02/2025 06/03/19, 06/09/2023, 06/12/2022, Additional history exists Creatinine 12/12/2025 12/12/2024, 10/31/2014 Adult Tetanus Booster 06/11/2030 06/11/2020 , 05/09/2010, [...] not included. PATIENT NAME: Mac Yarbrough LOCATION: [place] TEST DATE: 11/16/2024 : 1940 TECH NAME: [...] discharges were observed. Javy Acosta MD Neurologist, [facility] 2:57 PM 11/17/2024 America Lim PA-C EEG ORDERABLE Final Res ult * (ABNORMAL) ATN PROFILE ([facility]) (10/09/2024 1:20 PM CDT) A -- Beta-amyloid 42/40 Ratio ([facility]) 0.085(L) >0.102 [facility] 1 Beta-amyloid 42 ([facility]) 18.30 pg/mL [facility] 1 Beta-amyloid 40 ([facility]) 216.27 pg/mL [facility] 1 T -- [id number] ([facility]) 0.92 0.00 - 0.97 pg/mL [facility] 1 N -- NfL, Plasma ([facility]) 12.50(H) 0.00 - 9.13 pg/mL [facility] 1 ATN SUMMARY [1] ([facility]) Comment [facility] Comment: A+ T- N+ A low beta-amyloid 42/40 ratio and a high NfL concentration were observed. A normal yJsh230 concentration was observed at this time. These [...] developed and their performance characteristics determined by [employer] They have not been cleared or approved by the Food and Drug Administration. * METHODOLOGY: Beta-amyloid 42/40 Ratio: Sysmex Chemiluminescence Enzyme Immunoassay (CLEIA) NfL and [id number]: Tests performed by [facility] Electrochemiluminescence Immunoassay (ECLIA). Values obtained with different methods cannot be used interchangeable. These tests were developed and their performance characteristics determined by [facility]. They have not been cleared or approved by the Food and Drug Administration. * p-[id number] INFORMATION: For individual 0-55 years of age: [...] are based on a consensus between National [place] for Age and the Internation Working Group [...] - 10/20/2024 11:09 AM CDT Performed at: - [facility] [id number] Summer Analyst: Kim Jim MD, Phone: [phone] us America Lim PA-C [facility] ORDERABLES Final Result [facility] 1 * (ABNORMAL) PHOSPHORYLATED TAU 217 (PTAU-217), PLASMA ([facility]) (10/09/2024 1:20 PM CDT) p-ugs487 ([facility]) 0.25(H) 0.00 - 0.18 pg/mL [facility] 3 Comment: Clinical cutoff value was established using samples from a patient cohort characterized with amyloid PET data. A p-hcs121 value of >0.18 is a reported surrogate marker for beta amyloid pathology, and can be used to facilitate biological identification of Alzheimer's disease (1). p-jzr805 has also been used in clinical trials to monitor patients on anti-amyloid therapy (2,3). Test performed by [employer] chemiluminescent enzyme immunoassay (CLEIA). Values obtained with different methods cannot be used interchangeably. The validated limit of quantification is 0.06 pg/mL. Assay detection limit is 0.03 pg/mL. Footnotes ([facility]) Comment [facility] 3 Comment: 1. Mele Prater, et al. Diagnostic Accuracy of a Plasma Phosphorylated Tau 217 Immunoassay for Alzheimer Disease Pathology. KAMILA neurology (2023). 2. Mele Prater et al. Differential roles of A42/40, p-uyc025 and p-uks509 for Alzheimer's trial selection and disease monitoring. Nature medicine 28.12 (2021): 7308-7810. 3. Sridevi GREY, Ruth M, Sindhu SC, et al. Association of [place] Treatment With Exploratory Plasma Biomarkers in Early Symptomatic Alzheimer Disease: A Secondary Analysis of the TRAILBLAZER-ALZ Randomized Clinical Trial. KAMILA Neurol. 2021;79(12):3090-5538. Blood 10/09/2024 1:20 PM CDT 10/09/2024 11:00 PM CDT Narrative [facility] 3 - 10/20/2024 11:09 AM CDT Test(s) [id number] was developed and its performance characteristics determined by [facility]. It has not been cleared or approved by the Food and Drug Administration. Performed at: 03 - [facility] [address] [place] [id number] Summer Analyst: Tessa Morales MD, Phone: [phone] America Lim PA-C [facility] ORDERABLES Final Result [facility] * METHYLMALONIC ACID, SERUM ([facility]) (10/09/2024 1:20 PM CDT) Methylmalonic Acid ([facility]) 109 0 - 378 nmol/L [facility] 1 Blood 10/09/2024 1:20 PM CDT 10/09/2024 11:00 PM CDT Narrative [facility] 1 - 10/20/2024 11:09 AM CDT Test(s) 145434-Gzeykrvgdyedv Acid, Serum was developed and its performance characteristics determined by [facility]. It has not been cleared or approved by the Food and Drug Administration. Performed at: [facility] [address] [id number] Summer Analyst: Kim Jim MD, Phone: [phone] America Lim PA-C [facility] ORDERABLES Final Result Performing Organization Address [facility] Co de Phone Number [facility] 1 * (ABNORMAL) VITAMIN D, 25-HYDROXY ([facility]) (10/09/2024 1:20 PM CDT) Vitamin D,25 Hydroxy ([facility]) 20.8(L) 30.0 - 100.0 ng/mL [facility] 4 Comment: Vitamin D deficiency has been defined by the [place] of Medicine and an Endocrine Society practice guideline as a level of serum 25-OH vitamin D less than 20 ng/mL (1,2). The Endocrine Society went on to further define vitamin D insufficiency as a level between 21 and 29 ng/mL (2). 1. IOM ([place] of Medicine). 2010. Dietary reference intakes for calcium and D. [place]: The National Academies Press. 2. Elroy MF, Hilario NC, Tracie CASH, et al. Evaluation, treatment, and prevention of vitamin D deficiency: an Endocrine Society clinical practice guideline. JCEM. 2010; 96(7):1911-30. Blood 10/09/2024 1:20 PM CDT 10/09/2024 11:00 PM CDT Narrative [facility] 4 - 10/20/2024 11:09 AM CDT Performed at: - [facility] [address] [id number] Summer Analyst: Angel Rodriguez MD, Phone: [phone] America Lim PA-C [facility] ORDERABLES Final Result Performing Organization Address [facility]/ZIP Co de Phone Number [facility] 4 * TSH ([facility]) (10/09/2024 1:20 PM CDT) TSH ([facility]) 1.040 0.450 - 4.500 uIU/mL [facility] 4 Blood 10/09/2024 1:20 PM CDT 10/09/2024 11:00 PM CDT Narrative [facility] 4 - 10/20/2024 11:09 AM CDT Performed at: [address] [place] [id number] Summer Analyst: Angel Rodriguez MD, Phone: [phone] America Lim PA-C [facility] ORDERABLES Final Result Performing Organization Address [facility] Co de Phone Number [facility] 4 * VITAMIN B12 ([facility]) (10/09/2024 1:20 PM CDT) [facility] Vitamin B12 ([facility]) 924 232 - 1,245 pg/mL [facility] 4 Blood 10/09/2024 1:20 PM CDT 10/09/2024 11:00 PM CDT Narrative [facility] 4 - 10/20/2024 11:09 AM CDT Performed at: [address] [place] [id number] Summer Analyst: Angel Rodriguez MD, Phone: [phone] America Lim PA-C [facility] ORDERABLES Final Result Performing Organization Address [facility] de Phone Number [facility] 4 * APOE ALZHEIMER'S RISK ([facility]) (10/09/2024 1:20 PM CDT) Pathologist [facility] Method APOE ([facility]) Comment [facility] 2 Comment: Patient DNA is assayed for the APOE genotype by PCR amplification of a specific region in exon 4 of the APOE gene followed by digestion with restriction enzyme Karate Instructor I and separation of fragments by polyacrylamide [...] For inquiries or genetic consultation, please call [facility] at . Comment APOE ([facility]) Comment [facility] [...] the APOE4 variant and by approximately 10 [id number]-zbub for individuals with two copies of this [...] developed and its performance characteristics determined by [facility]. It has not been cleared or approved by the Food and Drug Administration. The FDA has determined that such clearance or approval is not necessary. REFERENCES Pricilla Ramírez et al. Sex modifies the APOE-related risk of developing Alzheimer disease. Annal Neurol 2014;75(4):563-573 Osiel DE LA GARZA. Alzheimer Disease Overview. Mam[employer] ([employer]). Emma THOMPSON et al., editors. [facility]: [facility], [place], [place]. Last revised 2014. Kaushik JS et al. Genetic counseling and testing for Alzheimer disease: Joint practice guidelines of the [place] College of Medical Genetics and the National Society of Genetic Counselors. [place] in Med 2011;136597-605. Twan CABA. Apolipoprotein E: Implications for AD neurobiology, epidemiology and risk assessment. Neurobiology of Aging 2011;32:778-790 Blood 10/09/2024 1:20 PM CDT 10/09/2024 11:00 PM CDT Narrative [facility] 2 - 10/20/2024 11:09 AM CDT Performed at: [employer] [address] [id number] Summer Analyst: Jovi Daniel MD, Phone: [phone] us America Lim PA-C [facility] ORDERABLES Final Result [facility] 2 * CREATININE EGFR (10/31/2014 12:10 PM CDT) Creatinine 1.01 0.70 - 1.30 mg/dL 10/31/2014 12:46 PM CDT [facility] Est GFR (CKD-EPI) >60 >60 mL/min 10/31/2014 12:46 PM CDT [facility] EST GFR IF AM >60 >60 mL/min 10/31/2014 12:46 PM CDT [facility] Blood 10/31/2014 12:1 0 PM CDT 10/31/2014 12:15 PM CDT us Ericstephen Altamirano MD CHEMISTRY ORDERABLE Final R esult [facility] [address] [facility] [place] [address] from Last 3 Months or Most Recently Relevant to Health Maintenance Insurance MEDICARE PART A & [place] [facility] [id number] [facility] [address] Care Teams Pv Design And Installation Technician Relationship Specialty Start Date End Date Clinic, Not Listed PCP - Primary Care Clinic 04/06/06 Bari Toscano MD [address] [place] [address] PCP - General Family Medicine 08/30/24 America Lim PA-C [address] [place] [address] Neurology 08/30/24
--- OUTSIDE RECORDS SUMMARY | 2025-01-05 10:53 | XMS_ITS | Continuity of Care Document ---
Author Organization [facility], [facility] Address [address] [place] [address] Care Team Providers Care Senior Paralegal Name Role Phone LINDSAY SANFORD Referring Provider [...] [email or web address] ro [facility], [address], [place], [address], 12/26/2024 14:05:06 cultur e, urine 2024 025 [facility], [address], [place], [address], 12/30/2024 11:19:27 Referral None record ed. Procedures None record ed. Surgeries cystos copy (SURG) 2024 025 [email or web address] Not available 12/28/2024 11:47:15 Imaging None record ed. Medication Orders None record ed. Patient TargetsNo targets recorded. Patient InstructionsNo instructions recorded. Reason for Referral None Reported. Results Created Date Observation Date Name Description Value Unit Range Abnormal Flag Note LastModifiedBy Organization Detail LastModifiedTime 12/06/1912/05/2024 PSA, serum or plasm a PSA 13.7ng /mL 0-4.0 NG/mL Not Available [facility] [address], [place], [address], 11/22/2024 15:45:12 12/27/1912/26/2024 URINE CULTU RE final report MICROB IOLOGY RESULT S SOURC E Void KNOWN ALLER GIES none TREAT MENT none MEDIA PLATE D AT: Media plate d on 12/26 @ 5:06 PM COLON Y COUNT 20,00 0-50, 000 cfu/m l RESUL T Rhodo coccu s [...] menda tions based on the resul t. Abiel persaud allow up to one week for provi gricelda revie w. Not Available [facility] [address], [place], [address], 12/30/2024 11:19:27 12/27/1912/26/2024 urina lysis , dipst ick BLOOD Large (250 RBC/uL ) Not Available [facility] [address], [place], [address], 12/26/2024 14:04:23 12/27/19 25 12/26/2024 urina lysis , dipst ick BILIRUBIN Negati ve Not Available [facility] [address], [place], [address], 12/26/2024 14:04:23 12/27/1912/26/2024 urina lysis , dipst ick UROBILINOGEN 0.2 mg/dL (Norm) Not Available [facility] [address], [place], [address], 12/26/2024 14:04:23 12/27/19 25 12/26/2024 urina lysis , dipst ick KETONES Negati ve Not Available [facility] [address], [place], [address], 12/26/2024 14:04:23 12/27/19 25 12/26/2024 urina lysis , dipst ick PROTEIN 100 mg/dL Not Available [facility] [address], [place], [address], 12/26/2024 14:04:23 12/27/19 25 12/26/2024 urina lysis , dipst ick NITRITES Negati ve Not Available [facility] [address], [place], [address], 12/26/2024 14:04:23 12/27/19 25 12/26/2024 urina lysis , dipst ick GLUCOSE >2000 mg/dL Not Available [facility] [address], [place], [address], 12/26/2024 14:04:23 12/27/19 25 12/26/2024 urina lysis , dipst ick p.H. 5.0 Not Available [facility] [address], [place], [address], 12/26/2024 14:04:23 12/27/19 25 12/26/2024 urina lysis , dipst ick S.G. (Specific [place]) 1.025 Not Available [facility] [address], [place], [address], 12/26/2024 14:04:23 12/27/19 25 12/26/2024 urina lysis , dipst ick LEUKOCYTES Small (25 WBC/uL ) Not Available [facility] [address], [place], [address], 12/26/2024 14:04:23 12/14/19 25 12/12/2024 CT, urogr am No observ ation record ed. OLYA [facility] [address], [place], [address], 12/18/2024 14:28:50 Result Notes None recorded. Procedures Surgical History Date Name Laterality Status Provider Name and Address Organization Details Recorded Time 5 Cystoscopy- male completed Louis Cook MD [address], [place], [address], [facility] 12/26/2024 19:09:00 5 Keflex post Cysto completed Carlos Enrique falcon [facility] 12/26/2024 13:31:05 5 Urinalysis completed Carlos Enrique falcon [facility] 12/26/2024 13:30:59 5 REAL ESTATE SALES MANAGER/blood draw completed Carlos Enrique falcon [facility] 12/05/2024 12:14:49 5 Bladder Scan completed Louis Cook MD [address], [place], [address], [facility] 12/05/2024 12:32:40 5 Urine Culture completed Meli Rowan [facility] 11/10/2024 11:16:59 5 Urinalysis completed Meli Rowan [facility] 11/10/2024 11:16:57 5 Urine Culture completed Anastasiia Ingram [facility] 09/25/2024 12:27:34 5 Urinalysis completed Anastasiia Ingram [facility] 09/25/2024 11:46:34 5 Bladder Scan completed Anastasiia Ingram [facility] 09/25/2024 11:46:26 5 Blood Draw/REAL ESTATE SALES MANAGER/PSA RESULTS completed Louis Cook MD [address] [place] [address],[address], [place], [address], [facility] 05/30/2024 12:41:37 4 Blood Draw/REAL ESTATE SALES MANAGER/PSA RESULTS completed Carlos Enrique falcon [facility] 10/11/2023 10:18:27 3 Heart Surgery completed Louis Cook MD [address] [place] [address],[address], [place], [address], [facility] 09/28/2022 16:37:35 procedure on spine completed Louis Cook MD [address] [place] [address],[address], [place], [address], [facility] 09/28/2022 16:37:23 Imaging Results None [...] Social History Question Answer Notes LastModified by OrganizMimosa Details LastModified Time Tobacco Smoking Status Former Smoker Louis Cook MD [address] [place] [address],[address], [place], [address], [facility] 09/28/2022 16:37:00 What Is Your [...] PF 3 completed Louis Cook MD [address], [place], [address], [facility] 04/26/2023 10:59:30 RSV, recombinant, protein subunit RSVpreF, adjuvant reconstituted, 0.5 mL, PF 3 completed Louis Cook MD [address] [place] [address],[address], [place], [address], [facility] 04/26/2023 10:59:31 COVID-19, mRNA, LNP-S, PF, 50 mcg/0.5 mL 3 completed Louis Cook MD [address] [place] [address],[address], [place], [address], [facility] 04/26/2023 10:59:31 COVID-19, mRNA, LNP-S, PF, 50 mcg/0.5 mL 4 completed Not Available [facility] 12/26/2024 13:30:47 COVID-19, mRNA, LNP-S, PF, 50 mcg/0.5 mL 4 completed Not Available [facility] 12/26/2024 13:30:47 Influenza, adjuvanted, trivalent, PF 4 completed Not Available [facility] 12/26/2024 13:30:47 COVID-19, mRNA, LNP-S, PF, 50 mcg/0.5 mL 5 completed Not Available [facility] 12/26/2024 13:30:47 IPV 2 completed Susana Allar null, [facility] 01/25/2023 09:28:19 Influenza, adjuvanted, trivalent, PF 7 completed Susana Allar null, [facility] 01/25/2023 09:28:19 Influenza, adjuvanted, trivalent, PF 9 completed Susana Allar null, [facility] 01/25/2023 09:28:19 Influenza, adjuvanted, trivalent, PF 8 completed Susana Allar null, [facility] 01/25/2023 09:28:19 zoster recombinant 0 completed Susana Allar null, [facility] 01/25/2023 09:28:19 zoster recombinant 9 completed Susana Allar null, [facility] 01/25/2023 09:28:19 Influenza, adjuvanted, quadrivalent, PF 0 completed Susana Allar null, [facility] 01/25/2023 09:28:19 Influenza, adjuvanted, quadrivalent, PF 2 completed Susana Allar null, [facility] 01/25/2023 09:28:19 Influenza, adjuvanted, quadrivalent, PF 1 completed Susana Allar null, [facility] 01/25/2023 09:28:19 COVID-19, mRNA, LNP-S, PF, 100 mcg/0.5mL dose or 50 mcg/0.25mL dose 1 completed Susana Allar null, [facility] 01/25/2023 09:28:19 COVID-19, mRNA, LNP-S, PF, 100 mcg/0.5mL dose or 50 mcg/0.25mL dose 1 completed Susana Allar null, [facility] 01/25/2023 09:28:19 COVID-19, mRNA, LNP-S, PF, 100 mcg/0.5mL dose or 50 mcg/0.25mL dose 1 completed Susana Allar null, [facility] 01/25/2023 09:28:19 Pneumococcal conjugate PCV20, polysaccharide [id number] conjugate, adjuvant, PF 3 completed Susana Allar null, [facility] 01/25/2023 09:28:19 COVID-19, mRNA, LNP-S, PF, 30 mcg/0.3 mL dose, ocatvia-sucrose 2 completed Susana Allar null, [facility] 01/25/2023 09:28:19 COVID-19, mRNA, LNP-S, bivalent, PF, 50 mcg/0.5 mL or 25mcg/0.25 mL dose 3 completed Susana Allar null, [facility] 01/25/2023 09:28:19 COVID-19, mRNA, LNP-S, bivalent, PF, 50 mcg/0.5 mL or 25mcg/0.25 mL dose 2 completed Ssuana Allar null, [facility] 01/25/2023 09:28:19 pneumococcal polysaccharide PPV23 6 completed Susana Allar null, [facility] 01/25/2023 09:28:19 pneumococcal polysaccharide PPV23 6 completed Susana Allar null, [facility] 01/25/2023 09:28:19 Tdap 1 completed Susana Allar null, [facility] 01/25/2023 09:28:19 Tdap 1 completed Susana Allar null, [facility] 01/25/2023 09:28:19 Pneumococcal conjugate PCV 13 5 completed Susana Allar null, [facility] 01/25/2023 09:28:19 yellow fever live 2 completed Susana Allar null, [facility] 01/25/2023 09:28:19 yellow fever live 1 completed Susana Allar null, [facility] 01/25/2023 09:28:19 zoster live 7 completed Susana Allar null, [facility] 01/25/2023 09:28:19 Influenza, high-dose, trivalent, PF 4 completed Susana Allar null, [facility] 01/25/2023 09:28:19 Influenza, high-dose, trivalent, PF 6 completed Susana Allar null, [facility] 01/25/2023 09:28:19 Influenza, high-dose, trivalent, PF 5 completed Susana Allar null, [facility] 01/25/2023 09:28:19 Influenza, split virus, trivalent, preservative 2 completed Susana Allar null, [facility] 01/25/2023 09:28:19 Influenza, split virus, trivalent, preservative 1 completed Susana Allar null, [facility] 01/25/2023 09:28:19 Influenza, split virus, trivalent, preservative 6 completed Susana Allar null, [facility] 01/25/2023 09:28:19 Influenza, split virus, trivalent, preservative 4 completed Susana Allar null, [facility] 01/25/2023 09:28:19 Influenza, split virus, trivalent, preservative 3 completed Susana Allar null, [facility] 01/25/2023 09:28:19 Influenza, split virus, trivalent, preservative 0 completed Susana Allar null, [facility] 01/25/2023 09:28:19 Influenza, split virus, trivalent, preservative 7 completed Susana Allar null, [facility] 01/25/2023 09:28:19 Influenza, split virus, trivalent, preservative 5 completed Susana Allar null, [facility] 01/25/2023 09:28:19 Td (adult), 5 Lf tetanus toxoid, preservative free, adsorbed 5 completed Susana Allar null, [facility] 01/25/2023 09:28:19 typhoid, ViCPs 2 completed Susana Allar null, [facility] 01/25/2023 09:28:19 typhoid, ViCPs 1 completed Susana Allar null, [facility] 01/25/2023 09:28:19 Hep A-Hep B 2 completed Susana Allar null, [facility] 01/25/2023 09:28:19 Hep A-Hep B 2 completed Susana Allar null, [facility] 01/25/2023 09:28:19 Hep A-Hep B 2 completed Susana Allar null, [facility] 01/25/2023 09:28:19 Past Encounters Encounter ID Performer Location Encounter Start Date Encounter Closed Date Diagnosis/Indication Diagnosis SNOMED-CT Code Diagnosis ICD10 Code Diagnosis IMO Codes Diagnosis Note [id number] Louis Cook MD [facility] [address] [place] [address] 12/05/2024 12:10:36 12/07/2024 11:21:36 Malignant neoplasm of prostate [id number] C61 1. Prostate cancer- cT1c - Arbon 3+3 = 6 - on expectant management - PSA (13.7) - increased - has fluctuated over the years- Follow-up in 3 months with PSA(if PSA increases significan t - check Prostate MRI and recommend TRUS bx Increased frequency of urination [id number] R35.0 2. Urinary frequency- he is off Lasix- incomplete emptying (188 mL)- stop Gemtesa 75 mg daily Lower urin robbin tract symptoms due to benign prostatic hypertrophy [id number] 9101 N40.1 4. BPH- high PVR = 188 mL- continue Flomax 0.4 mg daily- add Cialis 5 mg daily- check Bladder scan at Follow-up Microscopic hematuria 19 6571197 R31.29 [id number] 3. Microscopi c hematuria- check CT Urogram- will need Cystoscopy in near future [id number] Louis Cook MD [facility] [address] [place] [address] 12/26/2024 13:28:42 12/28/2024 12:14:11 Malignant neoplasm of prostate [id number] C61 2. Prostate cancer- cT1c - Luisa 3+3 = 6 - on expectant management - PSA (13.7) - increased - has fluctuated over the years- Follow-up in 3 months with PSA(if PSA increases significan t - check Prostate MRI and recommend TRUS bx Increased frequency of urination [id number] R35.0 H/O Urinary frequency- he is off Lasix- incomplete emptying (188 mL)- stopped Gemtesa 75 mg daily Microscopic hematuria 19 8562713 R31.29 [id number] 1. Microscopi c hematuria- CT Urogram (12/12/24) [...] tract symptoms due to benign prostatic hypertrophy [id number] 9101 N40.1 3. BPH- last PVR = 188 mL- continue Flomax 0.4 mg daily- continue Cialis 5 mg daily- check Bladder scan at Follow-up Multiple n odules of lung [id number] R91.8 [id number] 4. Pulmonary nodules- CT Urogram (12/12/24) - [...] Name 12/26/2024 1 [place]: ([place]IC[place]) [id number] Enrike Coleman [id number] Enrike Coleman Notes Date Note Type Note Provider Name and Address Organization Details Recorded Time 12/26/2024 text/html 84 yo male with history of A.fib (on Eliquis), HTN, DM, memory loss, PMR, BPH, and Prostate cancer - T1c - Arbon 3+3 = 6 - involving 1/10 cores (< 5%) on Left - TRUS bx (12/15/12) by Dr. Herrera - on expectant management. Prostate MRI (2014) revealed a PI-RADS 2 lesion - underwent MRI bx (10/31/14) of lesion at [facility] - benign. No family H/O prostate [...] medial lower lobe Louis Cook MD [address], [place], [address], [place] [facility] 12/26/2024 19:09:44
--- OUTSIDE RECORDS SUMMARY | 2025-01-05 10:53 | XMS_ITS | Data Portability ---
Author Organization [place] [facility] Address [address] [place] [address] Care Team Providers Care Consulting Business Developer Name Role Phone LINDSAY SANFORD Referring Provider [phone] Assessment No assessment recorded. Plan of Treatment [...] [email or web address] ro [facility], [address], [place], [address], 12/26/2024 14:05:06 cultur e, urine 2024 025 [facility], [address], [place], [address], 12/30/2024 11:19:27 PSA, serum or plasma 2024 025 [email or web address] ro [facility], [address], [place], [address], 12/05/2024 12:15:11 PSA, total, serum or plasma 2024 025 [facility], [address], [place], [address], 12/05/2024 13:23:25 urinal ysis, dipsti ck 2024 025 [email or web address] [facility], [address], [place], [address], 11/10/2024 11:19:26 cultur e, urine 2024 025 [facility], [address], [address], [place], [address], 11/11/2024 10:45:08 cultur e, urine 2024 025 [facility], [address], [address], [place], [address], 09/28/2024 11:28:22 PSA, serum or plasma 2024 025 [facility], [address], [place], [address], 05/30/2024 13:17:58 PSA, total, serum or plasma 2024 025 [email or web address] [facility], [address], [place], [address], 05/30/2024 14:27:38 Referral None record ed. Procedures None record ed. Surgeries cystos copy (SURG) 2024 [email or web address] Not available 12/28/2024 11:47:[address], urogra m - PLEASE CALL PT TO AMALIAU MADALYN [address] [facility], [address], [place], [address], 12/13/2024 11:02:23 Medication Orders tadala maureen 5 mg tablet 2024 025 [facility], [address], [place], [address], 12/05/2024 14:50:32 Patient TargetsNo targets recorded. Patient InstructionsNo instructions recorded. Reason for Referral None Reported. Results Created Date Observation Date Name Description Value Unit Range Abnormal Flag Note LastModifiedBy Organization Detail LastModifiedTime 05/31/1905/30/2024 PSA, serum or plasm a PSA 10.3 0-4.0 NG/mL Not Available [facility] [address], [place], [address], 05/30/2024 12:41:42 09/26/1909/25/2024 URINE CULTU RE final [...] w. Not Available [facility] [address], [place], [address], 09/28/2024 11:28:22 11/11/19 25 11/10/2024 URINE CULTU RE final report MICROB IOLOGY [...] [facility] [address], [place], [address], 11/11/2024 10:45:08 11/11/19 25 11/10/2024 urina lysis , dipst ick BLOOD Large (250 RBC/uL ) Not Available [facility] [address], [place], [address], 11/10/2024 11:17:20 11/11/19 25 11/10/2024 urina lysis , dipst ick NITRITES Negati ve Not Available [facility] [address], [place], [address], 11/10/2024 11:17:20 11/11/19 25 11/10/2024 urina lysis , dipst ick LEUKOCYTES Small (25 WBC/uL ) Not Available [facility] [address], [place], [address], 11/10/2024 11:17:20 12/06/19 25 12/05/2024 PSA, serum or plasm a PSA 13.7ng /mL 0-4.0 NG/mL Not Available [facility] [address], [place], [address], 11/22/2024 15:45:12 12/27/19 25 12/26/2024 URINE CULTU RE final report MICROB IOLOGY [...] [facility] [address], [place], [address], 12/30/2024 11:19:27 12/27/1912/26/2024 urina lysis , dipst ick BLOOD Large (250 RBC/uL ) Not Available [facility] [address], [place], [address], 12/26/2024 14:04:23 12/27/19 25 12/26/2024 urina lysis , dipst ick BILIRUBIN Negati ve Not Available [facility] [address], [place], [address], 12/26/2024 14:04:23 12/27/1912/26/2024 urina lysis , dipst ick UROBILINOGEN 0.2 mg/dL (Norm) Not Available [facility] [address], [place], [address], 12/26/2024 14:04:23 12/27/1912/26/2024 urina lysis , dipst ick KETONES Negati ve Not Available [facility] [address], [place], [address], 12/26/2024 14:04:23 12/27/19 25 12/26/2024 urina lysis , dipst ick PROTEIN 100 mg/dL Not Available [facility] [address], [place], [address], 12/26/2024 14:04:23 12/27/1912/26/2024 urina lysis , dipst ick NITRITES Negati ve Not Available [facility] [address], [place], [address], 12/26/2024 14:04:23 12/27/1912/26/2024 urina lysis , dipst ick GLUCOSE >2000 mg/dL Not Available [facility] [address], [place], [address], 12/26/2024 14:04:23 12/27/1912/26/2024 urina lysis , dipst ick p.H. 5.0 Not Available [facility] [address], [place], [address], 12/26/2024 14:04:23 12/27/1912/26/2024 urina lysis , dipst ick S.G. (Specific [place]) 1.025 Not Available [facility] [address], [place], [address], 12/26/2024 14:04:23 12/27/1912/26/2024 urina lysis , dipst ick LEUKOCYTES Small (25 WBC/uL ) Not Available [facility] [address], [place], [address], 12/26/2024 14:04:23 12/14/1912/12/2024 CT, urogr am No observ ation record ed. OLYA Louis [facility] [address], [place], [address], 12/18/2024 14:28:50 Result Notes None recorded. Procedures Surgical History Date Name Laterality Status Provider Name and Address Organization Details Recorded Time 5 Cystoscopy- male completed Louis Cook MD [address], [place], [address], [facility] 12/26/2024 19:09:00 5 Keflex post Cysto completed Carlos Enrique Barnes-[place] terrie [facility] 12/26/2024 13:31:05 5 Urinalysis completed Carlos Enrique Faganal-[place] ro [facility] 12/26/2024 13:30:59 5 SHOP TAILOR/blood draw completed Carlos Enrique Faganal-[place] ro [facility] 12/05/2024 12:14:49 5 Bladder Scan completed Louis Cook MD [address], [place], [address], [facility] 12/05/2024 12:32:40 5 Urine Culture completed Meli Rowan [facility] 11/10/2024 11:16:59 5 Urinalysis completed Meli Rowan [facility] 11/10/2024 11:16:57 5 Urine Culture completed Anastasiia Ingram [facility] 09/25/2024 12:27:34 5 Urinalysis completed Anastasiia Ingram [facility] 09/25/2024 11:46:34 5 Bladder Scan completed Anastasiia Ingram [facility] 09/25/2024 11:46:26 5 Blood Draw/SHOP TAILOR/PSA RESULTS completed Louis Cook MD [address], [place], [address], [facility] 05/30/2024 12:41:37 4 Blood Draw/SHOP TAILOR/PSA RESULTS completed Carlos Enrique falcon [facility] 10/11/2023 10:18:27 3 Heart Surgery completed Louis Cook MD [address], [place], [address], [facility] 09/28/2022 16:37:35 procedure on spine completed Louis Cook MD [address], [place], [address], [facility] 09/28/2022 16:37:23 Imaging Results [...] Updated DateTime 05/30/2024 175.26 cm 31 kg/m2 34233.4 g Louis Cook MD [address], [address], [place] [facility] 05/30/2024 12:38:02 Date Recorded Body height Body mass index (BMI) Body weight Provider Name and Address Organization Details Last Updated DateTime 09/25/2024 175.26 cm 31 kg/m2 67539.4 g Anastasiia Ingram [facility] 09/25/2024 11:45:48 Date Recorded Body height Body mass index (BMI) Body weight Provider Name and Address Organization Details Last Updated DateTime 12/05/2024 175.26 cm 31 kg/m2 67483.4 g Louis Cook MD [address] [place] [address],[address], [address] 12/05/2024 12:32:21 Social History Question Answer Notes LastModified by Organizat [employer] Details LastModified Time Tobacco Smoking Status Former Smoker Louis Cook MD [address] [place] [address],[address], [address] 09/28/2022 16:37:00 What Is Your Level Of [...] Status Question Answer Note LastModified by Organizat [employer] Details LastModified Time How many times per [...] available 2022 16:36:20 Medical History Condition Response Diabetes Y Sexually Transmitted Infection N Other Y Bleeding Disorder Y High Blood Pressure Y Kidney Stones N Cancer Y Depression N Lung Disease N High Cholesterol N Heart Disease Y Immunizations Vaccine Type Date Status Note Provider Nam e and Address Organization Details Recorded Time Influenza, high-dose, quadrivalent, PF 3 completed Louis Cook MD [address] [place] [address],[address], [address], [facility] 04/26/2023 10:59:30 RSV, recombinant, protein subunit RSVpreF, adjuvant reconstituted, 0.5 mL, PF 3 completed Louis Cook MD [address] [place] [address],[place] [address], [place], [address], [facility] 04/26/2023 10:59:31 COVID-19, mRNA, LNP-S, PF, 50 mcg/0.5 mL 3 completed Louis Cook MD [address] [place] [address],[place] [address], [place], [address], [facility] 04/26/2023 10:59:31 COVID-19, mRNA, LNP-S, PF, 50 mcg/0.5 mL 4 completed Not Available [facility] 12/26/2024 13:30:47 COVID-19, mRNA, LNP-S, PF, 50 mcg/0.5 mL 4 completed Not Available [facility] 12/26/2024 13:30:47 Influenza, adjuvanted, trivalent, PF 4 completed Not Available [facility] 12/26/2024 13:30:47 COVID-19, mRNA, LNP-S, PF, 50 mcg/0.5 mL 5 completed Not Available [facility] 12/26/2024 13:30:47 IPV 2 completed Susana watson, [facility] 01/25/2023 09:28:19 Influenza, adjuvanted, trivalent, PF 7 completed Susana watson, [facility] 01/25/2023 09:28:19 Influenza, adjuvanted, trivalent, PF 9 completed Susana Allar null, [facility] 01/25/2023 09:28:19 Influenza, adjuvanted, trivalent, PF 8 completed Susana Allar null, [facility] 01/25/2023 09:28:19 zoster recombinant 0 completed Susana Allar null, [facility] 01/25/2023 09:28:19 zoster recombinant 9 completed Susana Allar null, [facility] 01/25/2023 09:28:19 Influenza, adjuvanted, quadrivalent, PF 0 completed Susana Allar null, [facility] 01/25/2023 09:28:19 Influenza, adjuvanted, quadrivalent, PF 2 completed Susana Allar null, [facility] 01/25/2023 09:28:19 Influenza, adjuvanted, quadrivalent, PF 1 completed Susana Allar null, [facility] 01/25/2023 09:28:19 COVID-19, mRNA, LNP-S, PF, 100 mcg/0.5mL dose or 50 mcg/0.25mL dose 1 completed Susana Allar null, [facility] 01/25/2023 09:28:19 COVID-19, mRNA, LNP-S, PF, 100 mcg/0.5mL dose or 50 mcg/0.25mL dose 1 completed Susana Allar null, [facility] 01/25/2023 09:28:19 COVID-19, mRNA, LNP-S, PF, 100 mcg/0.5mL dose or 50 mcg/0.25mL dose 1 completed Susana Allar null, [facility] 01/25/2023 09:28:19 Pneumococcal conjugate PCV20, polysaccharide [id number] conjugate, adjuvant, PF 3 completed Susana Allar null, [facility] 01/25/2023 09:28:19 COVID-19, mRNA, LNP-S, PF, 30 mcg/0.3 mL dose, octavia-sucrose 2 completed Susana Allar null, [facility] 01/25/2023 09:28:19 COVID-19, mRNA, LNP-S, bivalent, PF, 50 mcg/0.5 mL or 25mcg/0.25 mL dose 3 completed Ussana Allar null, [facility] 01/25/2023 09:28:19 COVID-19, mRNA, LNP-S, bivalent, PF, 50 mcg/0.5 mL or 25mcg/0.25 mL dose 2 completed Susana Allar null, [facility] 01/25/2023 09:28:19 pneumococcal polysaccharide PPV23 6 completed Susana Allar null, [facility] 01/25/2023 09:28:19 pneumococcal polysaccharide PPV23 6 completed Susana Allar null, [facility] 01/25/2023 09:28:19 Tdap 1 completed Susana Allar null, [facility] 01/25/2023 09:28:19 Tdap 1 completed Susana Allar null, [facility] 01/25/2023 09:28:19 Pneumococcal conjugate PCV 13 5 completed Susana Allar null, [facility] 01/25/2023 09:28:19 yellow fever live 2 completed Susana Allar null, [facility] 01/25/2023 09:28:19 yellow fever live 1 completed Susana Allar null, [facility] 01/25/2023 09:28:19 zoster live 7 completed Susana Allar null, [facility] 01/25/2023 09:28:19 Influenza, high-dose, trivalent, PF 4 completed Susana Allar null, [facility] 01/25/2023 09:28:19 Influenza, high-dose, trivalent, PF 6 completed Susana Allar null, [facility] 01/25/2023 09:28:19 Influenza, high-dose, trivalent, PF 5 completed Susana Allar null, [facility] 01/25/2023 09:28:19 Influenza, split virus, trivalent, preservative 2 completed Susana Allar null, [facility] 01/25/2023 09:28:19 Influenza, split virus, trivalent, preservative 1 completed Susana Allar null, [facility] 01/25/2023 09:28:19 Influenza, split virus, trivalent, preservative 6 completed Susana Allar null, [facility] 01/25/2023 09:28:19 Influenza, split virus, trivalent, preservative 4 completed Susana Allar null, [facility] 01/25/2023 09:28:19 Influenza, split virus, trivalent, preservative 3 completed Susana Allar null, [facility] 01/25/2023 09:28:19 Influenza, split virus, trivalent, preservative 0 completed Susana Allar null, [facility] 01/25/2023 09:28:19 Influenza, split virus, trivalent, preservative 7 completed Susana Allar null, [facility] 01/25/2023 09:28:19 Influenza, split virus, trivalent, preservative 5 completed Susana Allar null, [facility] 01/25/2023 09:28:19 Td (adult), 5 Lf tetanus toxoid, preservative free, adsorbed 5 completed Susana Allar null, [facility] 01/25/2023 09:28:19 typhoid, ViCPs 2 completed Susana Allar null, [facility] 01/25/2023 09:28:19 typhoid, ViCPs 1 completed Susana Allar null, [facility] 01/25/2023 09:28:19 Hep A-Hep B 2 completed Susana Allar null, [facility] 01/25/2023 09:28:19 Hep A-Hep B 2 completed Susana Allar null, [place] [facility] 01/25/2023 09:28:19 Hep A-Hep B 2 completed NATALIE [place] - [facility] 01/25/2023 09:28:19 Past Encounters Encounter ID Performer Location Encounter Start Date Encounter Closed Date Diagnosis/Indication Diagnosis SNOMED-CT Code Diagnosis ICD10 Code Diagnosis IMO Codes Diagnosis Note [id number] MD LUIS ANGEL [address] [place], [place] [address] 09/28/2022 16:22:42 10/02/2022 13:32:27 Malignant neoplasm of prostate [id number] C61 1. Prostate cancer- cT1c - Luisa 3+3 = 6 - on expectant management - PSA increased (11.80) - has fluctuated over the years- recheck PSA in November ([facility])- if PSA increases - check Prostate MRI and recommend TRUS bx Lower urin robbin tract symptoms due to benign prostatic hypertrophy 3033416249 9101 N40.1 2. BPH- voiding okay- continue Flomax 0.4 mg daily [id number] MD [place] [address] 04/26/2023 10:54:45 04/26/2023 12:03:27 Malignant neoplasm of prostate [id number] C61 1. Prostate cancer- cT1c - Luisa 3+3 = 6 - on expectant management - PSA (9.08) - decreased has fluctuated over the years- recheck PSA in September ([facility])(if PSA increases significan t - check Prostate MRI and recommend TRUS bx Lower urin robbin tract symptoms due to benign prostatic hypertrophy 7780107005 9101 N40.1 2. BPH- voiding okay- continue Flomax 0.4 mg daily [id number] MD Solange Madrigal [employer] [place] [address] 10/11/2023 09:43:36 10/12/2023 08:25:39 Malignant neoplasm of prostate [id number] C61 1. Prostate cancer- cT1c - Luisa 3+3 = 6 - on expectant management - PSA (10.5) - decreased has fluctuated over the years- Follow-up in 6 months with PSA(if PSA increases significan t - check Prostate MRI and recommend TRUS bx Lower urin robbin tract symptoms due to benign prostatic hypertrophy 4150979892 9101 N40.1 2. BPH- voiding okay- continue Flomax 0.4 mg daily [id number] Louis Cook MD [facility] [address] [place] [address] 05/30/2024 12:07:44 06/02/2024 12:10:13 Malignant neoplasm of prostate [id number] C61 1. Prostate cancer- cT1c - [place] 3+3 = 6 - on expectant management - PSA (103) - decreased has fluctuated over the years- Follow-up in 6 months with PSA(if PSA increases significan t - check Prostate MRI and recommend TRUS bx Lower urin robbin tract symptoms due to benign prostatic hypertrophy 8153525278 9101 N40.1 H/O BPH- voiding okay- continue Flomax 0.4 mg daily- check Bladder scan at Follow-up Increased frequency of urination 320060379 R35.0 2. Urinary frequency- his symptoms correlate with his use of Lasix [id number] ANTOINE RAMOS PA-C [facility] [address] [place] [address] 09/25/2024 11:07:09 10/02/2024 12:08:22 Malignant neoplasm of prostate [id number] C61 1. Prostate cancer- cT1c - Luisa 3+3 = 6 - on expectant management - PSA (103) - decreased has fluctuated over the years- Follow-up as scheduled in November with PSA per Dr Cook(if PSA increases significan t - check Prostate MRI and recommend TRUS bx Increased frequency of urination 544611911 R35.0 2. Urinary frequency and urgency- improved since stopping Lasix and tapering steroid Lower urin robbin tract symptoms due to benign prostatic hypertrophy 1864929974 9101 N40.1 H/O BPH- voiding okay- continue Flomax 0.4 mg daily- PVR 162 ml today Urgent maribel ameya to urinate 35769890 R39.15 [id number] Most bothered by urgency / urge incontinen ceAfter must discussion , will trial PRN Gemtesa for days he goes out -- use sparinglyD iscussed expectatio ns, risk of UTIs and difficulty urinating -- low threshhold to discontinu e Gemtesa if not tolerating .Check PVR at next visit -- he will take Gemtesa that morning Will check urine culture today to r/o UTI [id number] ANTOINE RAMOS PA-C [facility] [address] [place] [address] 11/10/2024 10:42:48 11/17/2024 15:53:02 Urinary symptoms [id number] R39.9 [id number] Louis Cook MD [facility] [address] [place] [address] 12/05/2024 12:10:36 12/07/2024 11:21:36 Malignant neoplasm of prostate [id number] C61 1. Prostate cancer- cT1c - Luisa 3+3 = 6 - on expectant management - PSA (13.7) - increased - has fluctuated over the years- Follow-up in 3 months with PSA(if PSA increases significan t - check Prostate MRI and recommend TRUS bx Increased frequency of urination 195864195 R35.0 2. Urinary frequency- he is off Lasix- incomplete emptying (188 mL)- stop Gemtesa 75 mg daily Lower urin robbin tract symptoms due to benign prostatic hypertrophy 8093662457 9101 N40.1 4. BPH- high PVR = 188 mL- continue Flomax 0.4 mg daily- add Cialis 5 mg daily- check Bladder scan at Follow-up Microscopic hematuria 19 5440277 R31.29 [id number] 3. Microscopi c hematuria- check CT Urogram- will need Cystoscopy in near future [id number] Louis Cook MD [facility] [address] [place] [address] 12/26/2024 13:28:42 12/28/2024 12:14:11 Malignant neoplasm of prostate 949132939 C61 2. Prostate cancer- cT1c - Luisa 3+3 = 6 - on expectant management - PSA (13.7) - increased - has fluctuated over the years- Follow-up in 3 months with PSA(if PSA increases significan t - check Prostate MRI and recommend TRUS bx Increased frequency of urination 525412547 R35.0 H/O Urinary frequency- he is off Lasix- incomplete emptying (188 mL)- stopped Gemtesa 75 mg daily Microscopic hematuria 19 6545597 R31.29 [id number] 1. Microscopi c hematuria- CT Urogram (12/12/24) [...] tract symptoms due to benign prostatic hypertrophy [id number] 9101 N40.1 3. BPH- last PVR = 188 mL- continue Flomax 0.4 mg daily- continue Cialis 5 mg daily- check Bladder scan at Follow-up Multiple n odules of lung 926523584 R91.8 [id number] 4. Pulmonary nodules- CT Urogram (12/12/24) - [...] Member ID Sam Member ID Guarantor Name 12/30/2024 1 [place]) [id number] Enrike Coleman [id number] Enrike Coleman 04/17/2024 1 [place]: [employer] Enrike Coleman [id number] 1 Enrike Coleman 04/17/2024 1 [place] [id number] Enrike Coleman [id number] Enrike Coleman Notes Date Note Type Note [...] underwent MRI bx (10/31/14) of lesion at [facility] - benign. No family H/O prostate [...] (09/15/22)- 9.08 (04/16/23) Louis Cook MD [address], [place], [address], [facility] 05/30/2024 14:19:00 09/25/2024 text/html 84 yo male with history of A.fib (on Eliquis), HTN, DM, memory loss, BPH, and Prostate cancer - T1c - [place] 3+3 = 6 - involving 1/10 cores (< 5%) on Left - TRUS bx (12/15/12) by Dr. Herrera - on expectant management. Prostate MRI (2014) revealed a PI-RADS 2 lesion - underwent MRI bx (10/31/14) of lesion at [facility] - benign. No family H/O prostate [...] day and 1-2x/night.- PSA - 10.3 09/25/24 ([place]) - He presents for worsening [...] 9.08 (04/16/23)- 10.3 (05/30/24) ANTOINE RAMOS PA-C [address] [place] [address],[facility] [address], [place], [address], [facility] 09/25/2024 13:01:31 11/10/2024 text/html Bill is here for UA/UC and PVR- see triage note for Sx detailsNurse visit completed by Meli Sanchez RN. Meli watson, [facility] 11/10/2024 11:19:56 12/05/2024 text/html 84 yo [...] underwent MRI bx (10/31/14) of lesion at [facility] - benign. No family H/O prostate [...] 11.80 (09/15/22)- 9.08 (04/16/23) Louis Cook MD [address] [place] [address],[address], [place], [address], [facility] 12/05/2024 13:50:09 12/26/2024 text/html 84 yo [...] underwent MRI bx (10/31/14) of lesion at [facility] - benign. No family H/O prostate cancer.He is on Flomax 0.4 mg daily and stopped Gemtesa 75 mg daily. 05/30/24 - He presents for follow-up on Prostate cancer. 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 He reports more frequent / urgent urination since his surgery (on Lasix 40 mg in AM). He voids every 30-2 hours during the day and 1-2x/night. 09/25/24 ([facility]) - He presents for worsening urge incontinence. [...] Right medial lower lobe Louis Cook MD [address], [place], [address], [facility] 12/26/2024 19:09:44
--- OUTSIDE RECORDS SUMMARY | 2025-01-05 10:53 | XMS_ITS | Data Portability ---
Author Organization [place] - [facility], [employer] Address [address] [facility] [place] [address] Care Team Providers Care Chip Silo Tender Name Role Phone LINDSAY TOSCANO Primary Care [...] Updated DateTime 07/05/2024 172.72 cm 30 kg/m2 40888.7 g Meseret Kang [place] [facility] 07/05/2024 10:12:28 Social History None recorded. Functional Status None recorded. Mental Status None recorded. Family History Nothing Reported. Medical History No medical history recorded. 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 497734309 B35.1 34187 Ingrowing nail 279710165 L60.0 999 Pain in toe 650840886 M7 9.674 M79.675 G89.29 [id number] Acquired h allux malleus 77241897 M20.40 [id number] ANDREW GARCIA DPM [facility] [address] [place] [address] [id number] 4 10/11/2024 14:48:45 10/11/2024 17:14:00 Polyneuropathy due to type 2 diabetes mellitus 488270797 E11.42 [id number] 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 919250341 B35.1 30167 Ingrowing nail 476849546 L60.0 999 Pain in toe 434860167 M7 9.674 M79.675 G89.29 [id number] Acquired h allux malleus 28973520 M20.40 [id number] Health Concerns Section Related Observation LastModified by Organization Detai ls LastModified Time None Recorded Concern Status LastModified by Organization Details LastModified Time None Recorded Advance Directives Directive None Recorded Payers Insurance Date Sequence Insurance Name Policy Number Policy Sam Covered Member ID Sam Member ID Guarantor Name 01/05/2025 1 [facility]: (MEDICARE REPLACEMENT PPO) [id number] Enrike Coleman [id number] Enrike Coleman Notes Date Note Type Note [...] worn them consistently. ANDREW GARCIA DPM [address] [place], [address], [facility] 07/05/2024 11:12:26 [...] Toscano on 10/11/24 ANDREW GARCIA DPM [address] [place], [address], [facility] 10/11/2024 15:48:11
--- OUTSIDE RECORDS SUMMARY | 2025-01-05 10:53 | XMS_ITS | Clinical Summary ---
Author Organization [facility] Address [address], [place] [address] Care Team Providers Care Sponge Packer Name Role Phone Unavailable Primary Care Provider [...] for each transition of care or referral. [facility] Allergies No known active allergies Medications metFORMIN [...]
--- OUTSIDE RECORDS SUMMARY | 2025-01-05 10:53 | XMS_ITS | Clinical Summary ---
Author Organization [facility] Address [address] [place] [address] Care Team Providers Care Belt Loop Cutter Name Role Phone Pardeep Baird [facility] Unavailable + Rocael Gamez Unavailable Bari Toscano MD Primary Care Provider Hudson Valle MD Unavailable [phone] Allergies No known active allergies Medications lancets [...] Encounters Date Type Department Care Team Description 01/02/2025 Nurse Triage [facility] [address] [place] [address] Bari Toscano MD Urinary Problem 12/31/2024 Orders Only [facility] Scanner 1 scan: (1-Ord) [place], XR CHEST 1V PORTABLE , 12/31/2024 12/29/2024 4:00 PM CDT Ancillary Procedure [facility] [address] [place] [address] 12/28/2024 Orders Only [facility] Scanner 1 scan: (1-Ord) [place], CHEST ABDOMEN PELV W/ CONTRAST, 12/28/2024 12/28/2024 Orders Only [facility] Scanner 1 scan: (1-Ord) [facility], XR CHEST 1V PORTABLE , 12/28/2024 12/26/2024 Orders Only [facility] Scanner 1 scan: (1-Ord) [facility], CYSTOSCOPY, 12/26/2024 12/12/2024 9:10 AM CDT Ancillary Procedure [facility] [address] [place] [address] 12/12/2024 8:15 AM CDT Orders Only [facility] [address] [place] [address] Lab, [place] <No scans attached> 12/11/2024 9:00 AM CDT Office Visit [facility] [address] [facility] [address] [place] [address] Jose, JEFFERY Briggs Follow Up (6 month F/U-HFrEF [...] 12/11/2024 Travel 12/05/2024 Transcribe Orders [facility] [place] [phone] Louis Cook MD 11/22/[address] [address] Bari Toscano MD Refill Request (True Metrix Glucose Test Strip) 11/22/2024 Orders Only [address] [address] Bari Toscano MD <No scans attached> 11/21/2024 8:25 AM CDT Office Visit [address] [address] Bari Toscano MD Follow Up 11/21/[address] [address] Bari Toscano MD Refill Request (Metformin, Glipizide Extended-release) 11/20/2024 4:00 PM CDT Office Visit [facility] [address] [place] [address] Erik Hahn MD Follow Up (excisional debridement of unhealing traumatic scalp laceration) 11/20/2024 Travel 11/16/2024 Orders Only [facility] Scanner 1 scan: (1-Ord) [facility] 11/16/2024 Refill [facility] [address] [place] [address] Bari Toscano MD Refill Request (Metformin, Jardiance) 11/14/2024 Refill [facility] [address] [place] [address] Bari Toscano MD Refill Request (Glipizide Extended-release) 11/09/2024 Telephone [facility] [address] [phone] Sheldon Enriquez RN 11/06/2024 3:15 PM CDT Office Visit [facility] [address] [place] [address] Erik Hahn MD Follow Up (Excisional debridement of left posterior scalp and right mid thigh abscess 10/25/24) 11/06/2024 Travel 10/24/2024 Transcribe Orders [facility] [phone] America Lim PA-C 10/23/2024 12:30 PM CDT Office Visit [facility] [address] [place] [address] Erik Hahn MD Consult (Head injury --check head injury -laceration DOI-10/02/24/Also was seen in ED for cellulitis right thigh) 10/23/2024 Travel 10/18/2024 1:40 PM CDT Office Visit [facility] [address] [place] [address] Bari Toscano MD Follow Up (Head injury) 10/18/2024 Travel 10/11/2024 10:55 AM CDT Office Visit [facility] [address] [place] [address] Bari Toscano MD ER Follow up (10/02/2024, [facility] ER, fall with head laceration) 10/11/2024 Travel 10/06/2024 Refill [facility] [address] [place] [address] Bari Toscano MD Refill Request (Prednisone) from Last 3 Months Immunizations Immunization Administration [...] Inactivated Polio Vaccine 10/25/2001 Influenza, High-dose Inactivated 11/22/2015,10/04/2014,11/17/2013 Influenza, High-dose Quadriv alent Inactivated 01/06/2023 Influenza, [...] on file Legal Sex Male 5:25 AM RN PSYCH Gender Identity Not on file Sexual Orientation Not on file Obstetrics History Last Filed Vital Signs Vital Sign Reading Time Taken Comments Blood Pressure 105/62 12/11/2024 9:07 AM CDT Pulse 75 12/11/2024 9:07 AM CDT Temperature 36.5 C (97.7 F) 10/23/2024 12:25 PM CDT Respiratory Rate 20 04/13/2024 3:00 PM RN PSYCH Oxygen Saturation 95% 12/11/2024 9:07 AM CDT Inhaled Oxygen Concentration - - Weight 87.2 kg (192 lb 4.8 oz) 12/11/2024 9:07 A M CDT Height 170.2 cm (5' 7) 12/11/2024 9:07 AM CDT Body Mass Index 30.12 12/11/2024 9:07 AM CDT Plan of Treatment Upcoming Encounters Date Type Department Care Team (Late st Contact Info) Description 01/08/2025 11:20 AM RN PSYCH [facility] [address] [facility] [address] Bari Toscano MD [address] [place] [address] 01/12/2025 1:51 PM RN PSYCH Hospital Encounter [facility] [address] [place] [address] Louis Cook MD [address] [place] [address] 01/12/2025 1:51 PM RN PSYCH - 01/12/2025 2:54 PM RN PSYCH Surgery 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 N/A: Heart [employer] 12/30/2024 [id number] / / [id number] Description:[employer] AtriCli p . SIZE: 40MM. REF: [id number]. LOT: [id number]. Implanted on 03/10/[address] Red[address] [facility]. Procedures Procedure Name Priority Date/Time Associated Diagnosis Comments SCAN-RADIOLOGY REPORT 12/31/2024 12:00 AM CDT ECHO TTE COMPLETE W CONTRAST Routine 12/29/2024 3:35 PM CDT HFrEF (heart failure with reduced ejection fraction) (HC) Elevated troponin Fluid overload SCAN-CT INTERPRETATION 12:00 AM CDT SCAN-RADIOLOGY REPORT 12/28/2024 12:00 AM CDT SCAN-OPERATIVE/PROCEDU RE REPORT 12/26/2024 12:[address] ABDOMEN PELVIS UROGRAM WWO Routine 12/12/2024 [...] CDT from Last 3 Months Results * SCAN-RADIOLOGY REPORT (12/31/2024 12:00 AM CDT) Only the most recent of2 resultswithin the time period is included. Anatomical Region Laterality Modality Other us Scanner OTHER Final Result * ECHO TTE COMPLETE W CONTRAST (12/29/2024 3:35 PM CDT) AORTIC VALVE MEAN PG 3 mmHg LVEDD 5.0 cm EJECTION FRACTION 40 - 45% Anatomical Region Laterality Modality Ultrasound 12/29/2024 2:54 PM CDT Narrative 12/29/2024 4:06 PM CDT ECHOCARDIOGRAM MAC YARBROUGH : 1940 84 years Study Date: 12/29/2024 2:54:44 PM Gender: M BP: 122/66 mmHg Height: 170.00 cm BSA: 1.98 m Weight: 87.00 kg Tech: TASIA Referring MD: LONNIE MARIE Site: [facility] Reading Location: MOBILE IP Patient Location: Inpatient. Procedure: 2D w/ Contrast, Color Doppler and Spectral Doppler. Indication for study: HFrEF (heart failure with reduced ejection fraction) (HC) Elevated troponin Fluid overload Cardiac Rhythm: Ventricular paced.Study quality: Technically limited. Imaging limitations: This study was subject to imaging limitations due to lying in a supine position. Final Impressions: 1. Technically limited exam. 2. Normal LV size, mildly increased wall thickness, mildly reduced global systolic function with an estimated EF of 40 - 45%. 3. Right ventricular cavity size is mildly enlarged, global systolic RV function is mildly reduced. 4. The aortic valve is trileaflet and sclerotic, no stenosis and trivial regurgitation. 5. The inferior vena cava is normal sized, respiratory size variation less than 50%. 6. Echo contrast was administered to enhance visualization of all left ventricular segments. 7. The mitral valve is sclerotic, mild mitral regurgitation. Chamber Sizes and Function Normal left ventricular size, mildly increased wall thickness, mildly reduced global systolic function with an estimated EF of 40 - 45%. Left atrial size is normal. Right ventricular cavity size is mildly enlarged, global systolic RV function is mildly reduced. Coronary sinus pacing wire consistent with bi-ventricular pacing. The right atrium is not evaluated. The pulmonary artery is not well visualized. The sinus of Valsalva is normal sized. The ascending aorta is normal sized. Valves, RV Pressures and Diastolic Function The aortic valve is trileaflet and sclerotic, no stenosis and trivial regurgitation. The mitral valve is sclerotic, mild mitral regurgitation. Spectral Doppler shows Grade 1 pattern of LV diastolic filling. The tricuspid valve is normal in structure, trace tricuspid regurgitation. The pulmonic valve is not well visualized. Mild pulmonary regurgitation. Masses, Effusion, Shunts There is no pericardial effusion. The inferior vena cava is normal sized, respiratory size variation less than 50%. Interatrial septum is not well visualized. MEASUREMENTS AND CALCULATIONS 2-D Measurements and LV Function: LVID (d) 5.0 cm LV FS% (2D) 23 % LVID (s) 3.8 cm LVOT diameter 2.3 cm IVS (d) 1.2 cm HR 73 bpm LVPW (d) 1.2 cm LA Vol index 30 ml/m2 Ao Sinus 3.6 cm Ao Sinus ULN 4.2 cm * Asc Ao 4.0 cm Asc Ao ULN 4.4 cm * * Input age outside of range, reported values correspond to Age = 78 Diastology: Tissue Doppler e', Septum 0.08 m/s e', Lateral 0.19 m/s Aortic Valve: Vmax 1.0 m/s LILIA (V) 3.47 cm VTI 0.21 m LILIA (I) 3.07 cm LVOT V max 0.8 m/s Max PG 4 mmHg LVOT VTI 0.15 m Mean PG 3 mmHg SV 65 ml Dim Index 0.73 SV index 33 ml/m CO 4.8 l/min CI 2.4 l/min/m Tricuspid Valve and estimated PA pressures: Pulmonic Valve: PV Vmax 0.7 m/s Contrast documentation: 3cc ml diluted Definity, lot [facility][id number][facility] [id number] was administered peripherally to enhance visualization of all left ventricular segments. . This study was interpreted by an [facility] accredited facility. CC: HIM (med records) [facility], Med/Surg - IP [facility]. Final Procedure Note Ubaldo Fontenot MD - 12/29/2024 ECHOCARDIOGRAM MAC YARBROUGH : 1940 84 years Study Date: 12/29/2024 2:54:44 PM Gender: M BP: 122/66 mmHg Height: 170.00 cm BSA: 1.98 m Weight: 87.00 kg Tech: TASIA Referring MD: LONNIE MARIE Site: [facility] Reading Location: [facility] Patient Location: Inpatient. Procedure: 2D w/ Contrast, Color Doppler and Spectral Doppler. Indication for study: HFrEF (heart failure with reduced ejection fraction)(HC) Elevated troponin Fluid overload Cardiac Rhythm: Ventricular paced.Study quality: Technically limited. Imaging limitations: This study was subject to imaging limitations due tolying in a supine position. Final Impressions: 1. Technically limited exam. 2. Normal LV size, mildly increased wall thickness, mildly reduced globalsystolic function with an estimated EF of 40 - 45%. 3. Right ventricular cavity size is mildly enlarged, global systolic RVfunction is mildly reduced. 4. The aortic valve is trileaflet and sclerotic, no stenosis and trivialregurgitation. 5. The inferior vena cava is normal sized, respiratory size variationless than 50%. 6. Echo contrast was administered to enhance visualization of all leftventricular segments. 7. The mitral valve is sclerotic, mild mitral regurgitation. Chamber Sizes and Function Normal left ventricular size, mildly increased wall thickness, mildlyreduced global systolic function with an estimated EF of 40 - 45%. Leftatrial size is normal. Right ventricular cavity size is mildly enlarged,global systolic RV function is mildly reduced. Coronary sinus pacing wireconsistent with bi-ventricular pacing. The right atrium is not evaluated.The pulmonary artery is not well visualized. The sinus of Valsalva isnormal sized. The ascending aorta is normal sized. Valves, RV Pressures and Diastolic Function The aortic valve is trileaflet and sclerotic, no stenosis and trivialregurgitation. The mitral valve is sclerotic, mild mitral regurgitation.Spectral Doppler shows Grade 1 pattern of LV diastolic filling. Thetricuspid valve is normal in structure, trace tricuspid regurgitation. Thepulmonic valve is not well visualized. Mild pulmonary regurgitation. Masses, Effusion, Shunts There is no pericardial effusion. The inferior vena cava is normal sized,respiratory size variation less than 50%. Interatrial septum is not wellvisualized. MEASUREMENTS AND CALCULATIONS 2-D Measurements and LV Function: LVID (d) 5.0 cm LV FS% (2D) 23% LVID (s) 3.8 cm LVOT diameter2.3 cm IVS (d) 1.2 cm HR 73bpm LVPW (d) 1.2 cm LA Vol index 30ml/m2 Ao Sinus 3.6 cm Ao Sinus ULN 4.2 cm * Asc Ao 4.0 cm Asc Ao ULN 4.4 cm * * Input age outside of range, reported values correspond to Age = 78 Diastology: Tissue Doppler e', Septum 0.08 m/s e', Lateral 0.19 m/s Aortic Valve: Vmax 1.0 m/s LILIA (V) 3.47 cm VTI 0.21 m LILIA (I) 3.07 cm LVOT V max 0.8 m/s Max PG 4 mmHg LVOT VTI 0.15 m Mean PG 3 mmHg SV 65 ml Dim Index 0.73 SV index 33 ml/m CO 4.8 l/min CI 2.4 l/min/m Tricuspid Valve and estimated PA pressures: Pulmonic Valve: PV Vmax 0.7 m/s Contrast documentation: 3cc ml diluted Definity, lot #[id number], [facility]#[id number] was administered peripherally to enhance visualization of allleft ventricular segments. . This study was interpreted by an [facility] accredited facility. CC: HIM (med records) [facility], Med/Surg - IP [facility]. Final us Lonnie GIL ECHO ORD Final Result * SCAN-CT INTERPRETATION (12/28/2024 12:00 AM CDT) Anatomical Region Laterality Modality Other us Scanner OTHER Final Result * SCAN-OPERATIVE/PROCEDURE REPORT (12/26/2024 12:00 AM CDT) us Scanner OTHER Final Result * CT ABDOMEN PELVIS UROGRAM WWO (12/12/2024 [...] MD @ 12/13/2024 9:57:23 AM (Electronically Signed) Louis Cook MD CT Final Resu lt * POCT Creatinine (12/12/2024 9:17 AM CDT) Pathologist [facility] POCT,CREATININ E, ISTAT 1.1 0.6 - 1.3 mg/dL 12/12/2024 9:30 AM CDT [facility] Blood BLOOD SPECIMEN / Unknown [facility] / Unknown 12/12/2024 9:17 AM CDT 12/12/2024 9:17 AM CDT Louis Cook MD CHEMISTRY Final Resu lt [facility] [address] [place] [address], [place] [phone] [facility] [address] [place] [address], [place] [phone] * (ABNORMAL) URINE ALBUMIN TO CREATININE RATIO, RANDOM (11/21/2024 9:50 AM CDT) ALB RAND URINE 351.0 mg/L 11/21/2024 6:24 PM CDT [facility] CREATININE,URIN E 0.59 g/L 11/21/2024 6:24 PM CDT [facility] ALBUMIN TO CREATININE RATIO,RAND UR 594.9(H) <30.0 mg/g creat 11/21/2024 6:24 PM CDT [facility] Urine URINE SPECIMEN / Unknown Non-Blood / Unknown 11/21/2024 9:50 AM CDT 11/21/2024 10:37 AM CDT Narrative [facility] - 11/21/2024 6:24 PM CDT If Albumin to Creatinine Ratio is elevated, consider the following: Elevations seen with incipient nephropathy associated with diabetes mellitus or hypertension. Stress, exercise,hematuria, and urinary tract infection may also produce elevated results. If clinically indicated, confirm with 24 Hour Albumin to Creatinine Ratio. Bari Toscano MD URINE Final Result [facility] [address] [place] [address], [place] * METHYLMALONIC ACID BLOOD (11/21/2024 9:29 AM CDT) METHYLMALONIC ACID 98 85 - 423 nmol/L 11/22/2024 5:45 PM CDT [employer] Comment: See Note 1 Serum methylmalonic acid [...] neural tube defects and intrauterine growth restriction. [facility] utilized Multi-Modal Decomposition (MMD) analysis to establish first and second trimester-specific MMA reference intervals in , as given below: MMA, First trimester (<13 wks gestation): 58-167 nmol/L MMA, Second trimester (13-23 wks gestation): 63-241 nmol/L Note 1 This test was developed and its analytical performance characteristics have been determined by [facility]. It has not been cleared or approved by the FDA. This assay has been validated pursuant to the CLIA regulations and is used for clinical purposes. Blood BLOOD SPECIMEN / Unknown [facility] / Unknown 11/21/2024 9:29 AM CDT 11/21/2024 9:29 AM CDT us Bari Toscano MD SEND OUTS Final Result [facility] [address] [place] [address], [place] [phone] * (ABNORMAL) HEMOGLOBIN A1C MONITORING (POCT) (11/21/2024 9:29 AM CDT) Pathologist [facility] POC HEMOGLOBIN A1C 8.3(H) <6.0 % OF TOTAL HGB 11/21/2024 10:02 AM CDT [facility] Comment: Any point of care results exhibiting inconsistency with the patient's clinical status should be repeated using a different testing method. Blood BLOOD SPECIMEN / Unknown [facility] / Unknown 11/21/2024 9:29 AM CDT 11/21/2024 9:29 AM CDT us Bari Toscano MD CHEMISTRY Final Result Performing Organization Address City/[facility]/ZIP Co de Phone Number [facility] [address] [place] [address], [place] [phone] [facility] [address] [place] [address], [place] [phone] * VITAMIN B12 (11/21/2024 8:12 AM CDT) Pathologist [facility] VITAMIN B12 658 200 - 1100 pg/mL 11/22/2024 6:04 AM CDT [facility] Blood BLOOD SPECIMEN / Unknown [facility] / Unknown 11/21/2024 8:12 AM CDT 11/21/2024 8:12 AM CDT us Bari Toscano MD CHEMISTRY Final Result [facility] [address] [place] [address], [place] [phone] * SCAN-ELECTROENCEPHALOGRAM EEG INTERP (11/16/2024 12:00 AM CDT) us Scanner OTHER Final Result from Last 3 Months Additional Health Concerns Active Problems Noted Date Diagnosed Date Autogenerated Problem 12/27/2024 Insurance * Guarantor: Mac Yarbrough David Account Type Relation to Patient Date of Phone Billing Address Personal/Family Self 1940 [address] [place] [address] MEDICARE PART A HB ONLY BLUE CROSS MEDICARE ADVANTAGE Advance Directives Documents on File Type Date Recorded Patient 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 Expl anation Healthcare Directive 02/10/2024 INVALID , MISSING PAGE, 02/10/2024 Power of Steam [employer] Records Clerk 10/19/1996 DURABLE PO WER OF QUALITY COMPLIANCE MANAGER FOR HEALTH CARE, [facility], 10/19/1996 Power of [employer] Records Clerk 10/19/1996 STATUTORY SHORT FORM POWER OF QUALITY COMPLIANCE MANAGER, [facility], 10/19/1996 Healthcare Directive 03/04/1993 HEALTH CARE DECLARATION, [facility], 03/04/1993 * Full Code (Latest Code Status [...] 7:00 PM 04/07/2012 3:58 PM Care Teams Belt Loop Cutter Relationship Specialty Start Date End Date Bari Toscano MD [address] [place] [address] PCP - General Family Practice 08/14/13 Pardeep Baird [facility] Surgery - Orthopedics 09/09/12 Rocael Gamez [address] [place] [address] Ophthalmology Surgery 09/09/12 [place] [address] [place] [address] Rheumatology 03/07/24
--- NOTE | 2025-01-05 11:23 | ED.GENADULT ---
HPI - General Adult General Date Seen: 01/05/25 Chief complaint: Weakness Stated complaint: pain/not sleeping Time Seen by Provider: 01/05/25 11:00 History of Present Illness HPI narrative: Patient is an 84-year-old male with past medical history of congestive heart failure, urinary retention, polymyalgia rheumatica, atrial fibrillation anticoagulated on Eliquis, type 2 diabetes, recent admission for UTI with sepsis discharge from hospital on January 01. notes that he was pretty good for the 1st couple of days after leaving the hospital. She says on Wednesday he went for a few short walks, went to bed at about 8:00 p.m. and she says he has been sleeping essentially since then. Presents to the hospital on Wednesday morning. Patient notes that he has felt fatigued but denies any other specific complaints, other not aware of any fevers at home although his says he takes Tylenol pretty steadily. He denies any new pain, he has not had chest pain or difficulty breathing, no significant cough, no abdominal pain, no nausea or vomiting although he has not had much of an appetite and is not eating very much. notes that she does not think he has had a bowel movement since returning home. He has a Rodriguez catheter in place due to urinary retention noted in the hospital, this is been draining well and urine looked clear aside from some few small clots according to his . He had an exacerbation of his CHF in the hospital and was diuresed, discharged home on his believes 40 mg a day of Lasix which is new for him. He was also given broad-spectrum antibiotics while in the hospital and is on his last day of an oral antibiotic at home. Related Data Home Medications ?Medication ?Instructions ?Recorded ?Confirmed apixaban 5 mg tablet (Eliquis) 5 mg PO Q12H 02/15/22 12/28/24 blood sugar diagnostic (True 02/15/22 10/25/24 Metrix Glucose Test Strip) metformin 500 mg tablet,extended 2,000 mg PO QPM 02/15/22 12/28/24 release 24 hr acetaminophen 500 mg capsule 1,000 mg PO BID 07/27/23 12/28/24 tamsulosin 0.4 mg capsule 0.4 mg PO DAILY 07/27/23 12/28/24 empagliflozin 10 mg tablet 10 mg PO DAILY 02/24/24 12/28/24 (Jardiance) glipizide 10 mg tablet, extended 20 mg PO DAILY 02/24/24 12/28/24 release 24 hr metoprolol succinate 25 mg 25 mg PO DAILY 02/24/24 12/28/24 tablet,extended release 24 hr nitroglycerin 0.4 mg sublingual 0.4 mg sublingual Q5M PRN 02/24/24 12/28/24 tablet rosuvastatin 20 mg tablet 20 mg PO QPM 02/24/24 12/28/24 aspirin 81 mg capsule 81 mg PO DAILY 06/11/24 12/28/24 cholecalciferol (vitamin D3) 1,250 1,250 mcg PO Q7D 12/28/24 12/28/24 mcg (50,000 unit) capsule prednisone 5 mg tablet 5 mg PO DAILY 12/28/24 12/28/24 tadalafil 5 mg tablet 5 mg PO HS 12/28/24 12/28/24 Previous Rx's ?Medication ?Instructions ?Recorded furosemide 20 mg tablet 40 mg (2 x 20 mg) PO DAILY@0800 30 01/02/25 days #60 tabs potassium chloride 10 mEq 20 meq (2 x 10 mEq) PO DAILY 30 01/02/25 capsule,extended release days #60 caps cephalexin 500 mg capsule 500 mg PO QID #12 caps 01/05/25 clotrimazole 1 % topical cream 1 applic topical BID 10 days #15 01/05/25 grams fluconazole 150 mg tablet 150 mg PO Q3D 2 doses #2 tabs 01/05/25 Allergies Allergy/AdvReac Type Severity Reaction Status Date / Time No Known Drug Allergies Allergy Verified 12/28/24 14:20 Review of Systems Status of ROS: Reports: 10 or more systems reviewed and unremarkable except as noted in History and below [facility] Medical History Hematuria ?R31.9 - Hematuria, unspecified (ICD-10) Type 2 diabetes mellitus ?E11.9 - Type 2 diabetes mellitus without complications (ICD-10) HFrEF (heart failure with reduced ejection fraction) ?I50.20 - Unspecified systolic (congestive) heart failure (ICD-10) ASHD (arteriosclerotic heart disease) ?I25.10 - Atherosclerotic heart disease of [place] coronary artery without angina pectoris (ICD-10) Chronic anticoagulation ?Z79.01 - detention (current) use of anticoagulants (ICD-10) Hypertension ?I10 - Essential (primary) hypertension (ICD-10) BPH without urinary obstruction ?N40.0 - Benign prostatic hyperplasia without lower urinary tract symptoms (ICD-10) Mild cognitive impairment ?G31.84 - Mild cognitive impairment of uncertain or unknown etiology (ICD-10) Prostate cancer ?C61 - Malignant neoplasm of prostate (ICD-10) Mobitz (type) I (Wenckebach's) atrioventricular block ?I44.1 - Atrioventricular block, second degree (ICD-10) Atrial fibrillation ?I48.91 - Unspecified atrial fibrillation (ICD-10) Iron deficiency anemia ?D50.9 - Iron deficiency anemia, unspecified (ICD-10) Erectile dysfunction ?N52.9 - Male erectile dysfunction, unspecified (ICD-10) Displacement of lumbar intervertebral disc without myelopathy ?M51.26 - Other intervertebral disc displacement, lumbar region (ICD-10) Degeneration of lumbar or lumbosacral intervertebral disc ?M51.37 - Other intervertebral disc degeneration, lumbosacral region (ICD-10) Vitamin B12 deficiency ?E53.8 - Deficiency of other specified B group vitamins (ICD-10) Lumbar radiculopathy ?M54.16 - Radiculopathy, lumbar region (ICD-10) 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 - Complete traumatic metacarpophalangeal amputation of unspecified finger, initial encounter (ICD-10) Diabetes ?E11.9 - Type 2 diabetes mellitus without complications (ICD-10) COVID ?U07.1 - COVID-19 (ICD-10) Surgical History S/P CABG x 3 ?Z95.1 - Presence of aortocoronary bypass graft (ICD-10) History of permanent cardiac pacemaker placement ?Z95.0 - Presence of cardiac pacemaker (ICD-10) History of cholecystectomy ?Z90.49 - Acquired absence of other specified parts of digestive tract (ICD-10) History of appendectomy ?Z90.49 - Acquired absence of other specified parts of digestive tract (ICD-10) History of arthroscopy of left shoulder (03/21/96) ?Z98.890 - Other specified postprocedural states (ICD-10) History of arthroscopy of right shoulder (11/26/11) ?Z98.890 - Other specified postprocedural states (ICD-10) S/P ORIF (open reduction internal fixation) fracture (04/05/14) ?Z98.890 - Other specified postprocedural states (ICD-10) ?Z87.81 - Personal history of (healed) traumatic fracture (ICD-10) Family History Mother Bowel cancer Social History What is your current living situation?: I presently have a place to live Problems where you live: no known problems Problems where you live details: no known problems In the past 12 months, utilities in danger of being shut off: no In past 12 months, lack of transportation kept you from medical appts, meetings, work, or getting things needed for daily living: no In the past 12 mos, have been you worried that your food would run out before you had money to buy more?: never true In the past 12 mos, the food you bought just didn't last and you didn't have money to buy more?: never true Highest level of school completed/degree received: Bachelor's degree Smoking Status: Former smoker Do you use any of these nicotine containing products: None Second hand tobacco smoke exposure: Yes How often do you have a drink containing alcohol: 4 or more times a week How many standard drinks containing alcohol do you have on a typical day: 1 or 2 AUDIT-C Alcohol total score: 4 Non-prescribed substance use: denies use Caffeine: No How often does anyone, including family, friends and others, physically hurt you: never How often does anyone, including family, friends and others, insult or talk down to you: never How often does anyone, including family, friends and others, threaten you with harm: never How often does anyone, including family, friends and others, scream or curse at you: never service: No Exam Narrative: Exam Narrative: Vital signs reviewed In general, alert, nontoxic elderly male. Breathing easily. Head: Normocephalic, atraumatic. Eyes: Sclera clear. Pupils equal and reactive. ENT: Mucous membranes moist. Neck: Supple without adenopathy. Heart: Regular rate and rhythm without murmur. Lungs: Clear. No increased work of breathing, crackles or wheezes. Abdomen: Protuberant, soft, nontender to palpation. : Rodriguez catheter in place, clear yellow urine in the bag. Extremities: Well perfused, pulses intact. No significant edema. Neurologic: Alert, conversant. Speech fluent, face symmetric. Moves all extremities equally. Some mild memory difficulties noted but oriented to person place. Skin: Warm, dry well perfused. Affect: Normal. Const: Vital Signs, click to edit/add: Vital Signs - 24 hr 01/05/25 11:04 01/05/25 11:30 01/05/25 11:32 Temperature 97.8 F Pulse Rate 70 70 Pulse Rate [Pulse Oximeter] 70 Respiratory Rate 20 Blood Pressure 100/59 L Blood Pressure [Ri ght Upper Arm] 97/59 L Pulse Oximetry 96 97 [facility] 01/05/25 11:45 01/05/25 12:00 01/05/25 12:02 Temperature Pulse Rate 70 70 70 Pulse Rate [Pulse Oximeter] Respiratory Rate Blood Pressure 114/69 Blood Pressure [Ri ght Upper Arm] Pulse Oximetry 98 95 95 Oxygen Delivery Ia thod 01/05/25 12:15 01/05/25 12:17 01/05/25 12:30 Temperature Pulse Rate 70 70 70 Pulse Rate [Pulse Oximeter] Respiratory Rate Blood Pressure 119/71 Blood Pressure [Ri ght Upper Arm] Pulse Oximetry 96 97 98 Oxygen Delivery Ia thod 01/05/25 12:32 01/05/25 12:45 01/05/25 12:47 Temperature Pulse Rate 70 70 71 Pulse Rate [Pulse Oximeter] Respiratory Rate Blood Pressure 118/69 115/69 Blood Pressure [Ri ght Upper Arm] Pulse Oximetry 98 98 98 Oxygen Delivery Ia thod 01/05/25 12:48 01/05/25 13:00 01/05/25 13:02 Temperature Pulse Rate 73 70 70 Pulse Rate [Pulse Oximeter] Respiratory Rate Blood Pressure 109/65 Blood Pressure [Ri ght Upper Arm] Pulse Oximetry 98 98 97 Oxygen Delivery Ia thod 01/05/25 13:15 01/05/25 13:17 Temperature Pulse Rate 70 70 Pulse Rate [Pulse Oximeter] Respiratory Rate Blood Pressure 109/64 Blood Pressure [Ri ght Upper Arm] Pulse Oximetry 89 97 Oxygen Delivery Me thod Course Course ED Course: 84-year-old male brought in by his for concerns of increased sleeping. Generally he looks well, but does have a recent fairly significant hospital admission. Diagnostic considerations would include recurrent infection, metabolic derangement, over-diuresis, certainly may simply be fatigued after multiple days in the hospital and recovering from acute illness. Patient an EKG, this shows a paced rhythm, ventricular rate of 70. I checked multiple labs including CBC, metabolic panel, troponin, BNP, lactate and procalcitonin. As the checked a TSH. Urinalysis is pending but other labs are reviewed and are largely normal. He has a mildly elevated blood sugar 241, his says his blood sugars have been a little bit all over the place the past few days. LFT showed total bilirubin of 1.6, reviewed his records shows a couple of borderline elevations of bilirubin in the past without other changes in his LFTs. Alk-phos is mildly elevated at 173. In the absence of any abdominal pain, tenderness or other laboratory abnormalities, this is of uncertain significance. BNP is 42 50 which is approximately half what it was during his recent hospitalization. CRP mildly elevated at 2.8. Lipase is normal, procalcitonin is 0.12 TSH is 1.6. He did complain of some penile pain to the nurse, he has pain with any movement of the Rodriguez catheter, a little bit of yeastlike discharge over the glans, probably has mild balanitis and I think it would be reasonable to treat that with fluconazole. There is no evidence of cellulitis or orchitis. He has been awake and at his neurologic baseline according to his since arriving here. He is hungry, will get him something to eat. Still waiting on the urinalysis but overall labs are reassuring. UA continues to show 25-50 white blood cells, I am not sure whether this is simply because he has an indwelling catheter but with ongoing penile pain I am going to extend his antibiotics for few days. I prescribed Keflex for 3 more days. I also prescribed fluconazole and clotrimazole to treat balanitis. They are comfortable with discharge, he has primary care in urology follow-up next week. Return any time for worsening symptoms such as fever, vomiting, new pain etcetera. Vital Signs Vital signs: Initial Vital Signs Temperature 97.8 F 01/05/25 11:04 Temperature Source Temporal Artery Scan 01/05/25 11:04 Pulse Rate 70 01/05/25 11:04 Respiratory Rate 20 01/05/25 11:04 Blood Pressure 97/59 L 01/05/25 11:04 Blood Pressure Mean 71 01/05/25 11:04 Blood Pressure Position Sitting 01/05/25 11:04 Pulse Oximetry 96 01/05/25 11:04 Oxygen Delivery Method Room Air 01/05/25 11:04 Vital Signs Temperature 97.8 F 01/05/25 11:04 Pulse Rate 70 01/05/25 11:04 Respiratory Rate 20 01/05/25 11:04 Blood Pressure 97/59 L 01/05/25 11:04 Pulse Oximetry 96 01/05/25 11:04 Oxygen Delivery Method Room Air 01/05/25 11:04 Temperature 97.8 F 01/05/25 11:04 Pulse Rate 70 01/05/25 13:17 Respiratory Rate 20 01/05/25 11:04 Blood Pressure 109/64 01/05/25 13:17 Pulse Oximetry 97 01/05/25 13:17 Oxygen Delivery Method Room Air 01/05/25 11:04 Medical Decision Making Lab Data Lab results reviewed: Yes I reviewed the patient's lab results Labs: Lab Results 01/05/25 01/05/25 01/05/25 Range/Units 11:22 11:45 11:49 WBC 9.25 (4.50-11.00) K/uL RBC 4.18 L (4.30-5.90) m/uL Hgb 10.8 L (13.5-17.5) gm/dL Hct 34.2 L (37.0-53.0) % MCV 82 (80-100) fL MCH 26 (26-34) pg MCHC 32 (32-36) gm/dL RDW Coeff of Ferny 15.1 (11.5-15.5) % Plt Count 246 (140-440) K/uL Neut % (Auto) 80.9 H (42.0-72.0) % Lymph % (Auto) 10.6 L (20-44) % [place] % (Auto) 7.2 (0.0-11.0) % Eos % (Auto) 0.9 (0.0-7.0) % Baso % (Auto) 0.1 (0.0-3.0) % Neut # (Auto) 7.50 H (1.7-7.0) K/uL Lymph # (Auto) 1.00 (0.90-2.90) K/uL [place] # (Auto) 0.70 (0.00-0.90) K/UL Eos # (Auto) 0.08 (0.00-0.50) K/uL Baso # (Auto) 0.01 (0.00-0.30) K/uL Abs Immat Gran (auto) 0.03 (0.00-0.30) K/uL Imm/Tot Granulo (auto) 0.3 % Sodium 133 L (135-149) mmol/L Potassium 4.0 (3.6-5.1) mmol/L Chloride 96 (96-114) mmol/L Carbon Dioxide 25 (20-32) mmol/L Anion Gap 12 (7-15) mEq/L BUN 20 (7-30) mg/dL Creatinine 1.0 (0.5-1.5) mg/dL Estimated Creat Clear 47.85 Estimated GFR 73 ml/min Glucose 241 H (60-115) mg/dL Lactate 1.8 (0.5-1.9) mmol/L Calcium 8.5 (8.4-10.6) mg/dL Magnesium 2.0 (1.5-2.6) mg/dL Total Bilirubin 1.6 H (0.1-1.5) mg/dL Direct Bilirubin 0.4 (0.0-0.5) mg/dL AST 28 (12-35) U/L ALT 42 (4-50) U/L Alkaline Phosphatase 173 H (40-150) U/L C-Reactive Protein 2.8 H (0.5-1.0) mg/dL NT-Pro-B Natriuret Pep 4250 H (See Note) pg/mL Total Protein 6.2 (6.0-8.3) g/dL Albumin 3.3 (3.3-5.0) g/dL Lipase 59 (23-300) U/L Procalcitonin 0.12 (<0.50) ng/mL TSH 1.610 (0.270-4.200) uIU/mL Urine Color (Yellow) Urine Appearance (Clear) Urine pH (5.0-8.5) Ur Specific Reedy (1.000-1.030) Urine Protein (Negative) Urine Glucose (UA) (Negative) Urine Ketones (Negative) Urine Blood (Negative) Urine Nitrite (Negative) Urine Bilirubin (Negative) Urine Urobilinogen (0.2-1.0) Ur Leukocyte Esterase (Negative) Urine RBC (0-2) Urine WBC (0-5) Ur Squamous Epith Cells (None-Few) Urine Bacteria (None) POC Troponin I 0.02 (0.01-0.04) ng/ml 01/05/25 Range/Units 12:22 WBC (4.50-11.00) K/uL RBC (4.30-5.90) m/uL Hgb (13.5-17.5) gm/dL Hct (37.0-53.0) % MCV (80-100) fL MCH (26-34) pg MCHC (32-36) gm/dL RDW Coeff of Ferny (11.5-15.5) % Plt Count (140-440) K/uL Neut % (Auto) (42.0-72.0) % Lymph % (Auto) (20-44) % [place] % (Auto) (0.0-11.0) % Eos % (Auto) (0.0-7.0) % Baso % (Auto) (0.0-3.0) % Neut # (Auto) (1.7-7.0) K/uL Lymph # (Auto) (0.90-2.90) K/uL [place] # (Auto) (0.00-0.90) K/UL Eos # (Auto) (0.00-0.50) K/uL Baso # (Auto) (0.00-0.30) K/uL Abs Immat Gran (auto) (0.00-0.30) K/uL Imm/Tot Granulo (auto) % Sodium (135-149) mmol/L Potassium (3.6-5.1) mmol/L Chloride (96-114) mmol/L Carbon Dioxide (20-32) mmol/L Anion Gap (7-15) mEq/L BUN (7-30) mg/dL Creatinine (0.5-1.5) mg/dL Estimated Creat Clear Estimated GFR ml/min Glucose (60-115) mg/dL Lactate (0.5-1.9) mmol/L Calcium (8.4-10.6) mg/dL Magnesium (1.5-2.6) mg/dL Total Bilirubin (0.1-1.5) mg/dL Direct Bilirubin (0.0-0.5) mg/dL AST (12-35) U/L ALT (4-50) U/L Alkaline Phosphatase (40-150) U/L C-Reactive Protein (0.5-1.0) mg/dL NT-Pro-B Natriuret Pep (See Note) pg/mL Total Protein (6.0-8.3) g/dL Albumin (3.3-5.0) g/dL Lipase (23-300) U/L Procalcitonin (<0.50) ng/mL TSH (0.270-4.200) uIU/mL Urine Color Light yellow (Yellow) Urine Appearance Slightly Cloudy A (Clear) Urine pH 6.5 (5.0-8.5) Ur Specific Reedy 1.015 (1.000-1.030) Urine Protein Negative (Negative) Urine Glucose (UA) 2+ A (Negative) Urine Ketones Negative (Negative) Urine Blood 2+ A (Negative) Urine Nitrite Negative (Negative) Urine Bilirubin Negative (Negative) Urine Urobilinogen 0.2 (0.2-1.0) Ur Leukocyte Esterase 1+ A (Negative) Urine RBC 10-25 A (0-2) Urine WBC 25-50 A (0-5) Ur Squamous Epith Cells Few (None-Few) Urine Bacteria None (None) POC Troponin I (0.01-0.04) ng/ml Imaging Data Chest x-ray: Attestation: I have reviewed the pertinent imaging results. Radiologist's impression: Patient: Enrike Coleman MR#: [id number] : 1940 Acct:[id number] Loc: ED Service Date: 01/05/[address]: Ordering Physician: Daphnie Patino M.D. Date of Service: 01/05/25 Procedure(s): XR chest 1V portable Accession Number(s): [id number] cc: Daphnie Patino M.D.; Bari Toscano M.D.~ For Patients: As a result of the Century Cures Act, medical imaging exams and procedure reports are released immediately into your electronic medical record. You may view this report before your referring provider. If you have questions, please contact your health care provider. INDICATION: : Weakness COMPARISON: Chest radiograph on December 31, 2024 and priors TECHNIQUE: One view(s) of the chest FINDINGS: The cardiomediastinal silhouette is stable with left atrial appendage clip and left chest wall dual lead pacemaker. There is no focal airspace consolidation, pleural effusion, or pneumothorax. No displaced fractures. IMPRESSION: No acute cardiopulmonary process. Dictated by Maverick Sosa MD @ 01/05/2025 12:21:28 PM Discharge Plan Discharge Clinical Impression: Balanitis, Recent urinary tract infection Fatigue Qualifiers: Fatigue type: other post infection and related fatigue syndromes Qualified Code(s): G93.39 - Other post infection and related fatigue syndromes Patient Disposition: Home w/ Parent or Adult Condition: Stable Instructions: Balanitis (ED), Fatigue (ED) Additional Instructions: Overall, your test today are very reassuring. There is no sign of new serious infection, significant dehydration, kidney failure, worsening heart failure or other acute problem. Some of the symptoms to having are probably related to your recent significant illness and hospital stay. As discussed, we will treat your penile pain with an antifungal medication called fluconazole. Because you still have some white blood cells in your urine and are having some penile pain, I do think we should also continue your antibiotic for few more days. Follow-up with urology as planned. See your primary doctor as planned. If you are worse, develop new symptoms such as fever, vomiting, difficulty breathing, etcetera, return to the emergency department at any time. I would continue your current medications for now. Prescriptions: New fluconazole 150 mg tablet 150 mg PO Q3D Qty: 2 0RF cephalexin 500 mg capsule 500 mg PO QID Qty: 12 0RF clotrimazole 1 % cream 1 applic topical BID 10 Days Qty: 15 0RF No Action tamsulosin 0.4 mg capsule 0.4 mg PO DAILY acetaminophen 500 mg capsule 1,000 mg PO BID glipizide 10 mg tablet extended release 24hr 20 mg PO DAILY nitroglycerin 0.4 mg tablet, sublingual 0.4 mg sublingual Q5M PRN metoprolol succinate 25 mg tablet extended release 24 hr 25 mg PO DAILY rosuvastatin 20 mg tablet 20 mg PO QPM Jardiance 10 mg tablet 10 mg PO DAILY (DME) True Metrix Glucose Test Strip Strip MISCELLANEOUS Patient Comments: TEST 2 TIMES PER WEEK. metformin 500 mg tablet extended release 24 hr 2,000 mg PO QPM Patient Comments: TAKE 4 TABLETS (2,000 MG) BY MOUTH ONCE DAILY WITH EVENING MEAL. Eliquis 5 mg tablet 5 mg PO Q12H Patient Comments: TAKE 1 TABLET (5 MG) BY MOUTH TWO TIMES DAILY. aspirin 81 mg capsule 81 mg PO DAILY cholecalciferol (vitamin D3) 1,250 mcg (50,000 unit) capsule 1,250 mcg PO Q7D prednisone 5 mg tablet 5 mg PO DAILY tadalafil 5 mg tablet 5 mg PO HS potassium chloride 10 mEq Capsule, Extended Release 20 meq PO DAILY 30 Days Qty: 60 0RF furosemide 20 mg Tablet 40 mg PO DAILY@0800 30 Days Qty: 60 0RF Follow Up/Referrals: Bari Toscano MD [Primary Care Provider, Family Practice] Stand Alone Forms: [facility] Info Instructions
--- OUTSIDE RECORDS SUMMARY | 2025-01-05 11:32 | XMS_ITS | Clinical Summary ---
Author Organization [facility] Address [address] , [address] [place] [address] Phone Care Team Providers Care Sheet Catcher Name Role Phone MedRec, MedRec Unavailable Conditions or Problems Problem Name Problem Code Onset Date Status Entry Date Provider Comment Standard Description Annotate Leg weakness, bilateral 509540625 (SNOMED CT) Active Marco Antonio Alicea MD Paresis of lower extremity Peripheral polyneuropathy 295251329 (SNOMED CT) Active Marco Antonio Alicea MD Peripheral nerve disease Nonspecific paroxysmal spell 5703705 (SNOMED CT) 03/26 Active 03/26 Marco Antonio Alicea MD Disturbance of consciousness Mild cognitive impairment 646292122 (SNOMED CT) 03/19 Active 03/19 Marco Antonio Alicea MD Mild neurocognitive disorder Memory loss 66469416 (SNOMED CT) 10/31 Active 10/31 Marco Antonio Alicea MD Amnesia Medications Medication Instructions Start Date Stop Date Generic Name [facility] Provider METFORMIN HCL ER 500 MG [id number] 04/28 metformin (glucophage xr) [id number] Marco Antonio Alicea MD SODIUM CHLORIDE 0.9 % SOLN 04/28 sodium chloride 11677774995 Marco Antonio Alicea MD GABAPENTIN 300 MG CAPS TAKE 1 CAPSULE (300 MG) BY MOUTH AT BEDTIME. 04/28 gabapentin [id number] Marco Antonio Alicea MD ELIQUIS 5 MG TABS TAKE 1 TABLET (5 MG) BY MOUTH TWO TIMES DAILY. 04/28 apixaban [id number] Marco Antonio Alicea MD LISINOPRIL-HYDRO CHLOROTHIAZIDE 20-25 MG TABS 04/28 lisinopril-hydr ochlorothiazide 69028607806 Marco Antonio Alicea MD TRUE METRIX BLOOD GLUCOSE TEST STRP TEST 2 TIMES PER WEEK. 04/28 blood sugar diagnostic [id number] Marco Antonio Alicea MD TROSPIUM CHLORIDE 20 MG TABS TAKE ONE TABLET BY MOUTH DAILY 04/28 trospium 56213351155 Marco Antonio Alicea MD GLIPIZIDE ER 2.5 MG [id number] 04/28 glipizide 60798827183 Marco Antonio Alicea MD PREDNISONE 10 MG TABS TAKE 1-2 TABLETS (10-20 MG) BY MOUTH ONCE DAILY WITH A MEAL. DIRECTED 04/28 prednisone [id number] Marco Antonio Alicea MD TAMSULOSIN HCL 0.4 MG CAPS TAKE 1 CAPSULE (0.4 MG) BY MOUTH ONCE DAILY AFTER A MEAL. 04/28 tamsulosin 45549864747 Marco Antonio Alicea MD ENTRESTO 24-26 MG TABS TAKE 1 TABLET BY MOUTH TWO TIMES DAILY. sacubitril-vals karin [id number] Marco Antonio Alicea MD VITAMIN B-12 1,000 MCG TAB 1000 TAKE 1 TABLET (1,000 MCG) BY MOUTH ONCE DAILY. VITAMIN B-12 1,000 MCG TAB 1000 Marco Antonio Alicea MD JARDIANCE 10 MG TABS TAKE 1 TABLET (10 MG) BY MOUTH ONCE DAILY. empagliflozin 13860635694 Marco Antonio Alicea MD ELIQUIS 5 MG TABS TAKE 1 TABLET (5 MG) BY MOUTH TWO TIMES DAILY. apixaban 68497291317 Marco Antonio Alicea MD TROSPIUM CHLORIDE 20 MG TABS TAKE ONE TABLET BY MOUTH DAILY trospium 67641188222 Marco Antonio Alicea MD FUROSEMIDE 20 MG TABS TAKE 1 TABLET (20 MG) BY MOUTH ONCE DAILY IN THE MORNING. furosemide 88576621149 Marco Antonio Alicea MD ROSUVASTATIN CALCIUM 20 MG TABS TAKE 1 TABLET (20 MG) BY MOUTH AT BEDTIME. rosuvastatin [id number] Marco Antonio Alicea MD METOPROLOL SUCCINATE ER 25 MG [id number] TAKE 1 TABLET (25 MG) BY MOUTH ONCE DAILY. metoprolol succinate [id number] Marco Antonio Alicea MD TAMSULOSIN HCL 0.4 MG CAPS TAKE 1 CAPSULE (0.4 MG) BY MOUTH ONCE DAILY AFTER A MEAL. tamsulosin [id number] Marco Antonio Alicea MD ISOSORBIDE MONONITRATE ER 30 MG [id number]-TTA TAKE 1 TABLET (30 MG) BY MOUTH ONCE DAILY. isosorbide mononitrate 64791441365 Marco Antonio Alicea MD METFORMIN HCL ER 500 MG [id number]-PQJ TAKE 4 TABLETS (2,000 MG) BY MOUTH ONCE DAILY WITH EVENING MEAL. metformin (glucophage xr) 63315167938 Marco Antonio Alicea MD NITROGLYCERIN 0.[address] 1 TABLET (0.4 MG) UNDER THE TONGUE EVERY 5 MINUTES IF NEEDED FOR CHEST PAIN. UP TO 3 TABLETS IN 15 MINUTES. nitroglycerin 39754156943 Marco Antonio Alicea MD GABAPENTIN 300 MG CAPS TAKE 1 CAPSULE (300 MG) BY MOUTH AT BEDTIME. gabapentin 94343393880 Marco Antonio Alicea MD POTASSIUM CHLORIDE GEM ER 20 MEQ CR-TABS TAKE 1 TABLET (20 MEQ) BY MOUTH ONCE DAILY. potassium chloride 57110414982 Marco Atnonio Alicea MD TERBINAFINE HCL 1 % CREA APPLY TOPICALLY TO AFFECTED AREA(S) TWO TIMES DAILY. terbinafine hcl [id number] Marco Antonio Alicea MD TERBINAFINE HCL 250 MG TABS TAKE 1 TABLET (250 MG) BY MOUTH ONCE DAILY. terbinafine hcl 63761696239 Marco Antonio Alicea MD GLIPIZIDE ER 10 MG [id number] TAKE 2 TABLETS (20 MG) BY MOUTH ONCE DAILY BEFORE A MEAL. glipizide [id number] Marco Antonio Alicea MD PREDNISONE 20 MG TABS TAKE 1 TABLET (20 MG) BY MOUTH ONCE DAILY WITH A MEAL. 09/20 prednisone [id number] Yue Schulte PA-C TROSPIUM CHLORIDE 20 MG TABS TAKE ONE TABLET BY MOUTH DAILY 04/28 trospium [id number] Yue Garciail PA-C PREDNISONE 10 MG TABS TAKE 1-2 TABLETS (10-20 MG) BY MOUTH ONCE DAILY WITH A MEAL. DIRECTED 04/28 prednisone [id number] Yue Schulte PA-C GABAPENTIN 300 MG CAPS TAKE 1 CAPSULE (300 MG) BY MOUTH AT BEDTIME. 09/08 gabapentin [id number] Yue GIL-C ID NOW COVID-19 KIT TEST DIRECTED TODAY 09/17 covid-19 molecular test assay [id number] Yue Schulte PA-C PREDNISONE 20 MG TABS TAKE 1 TABLET (20 MG) BY MOUTH ONCE DAILY WITH A MEAL. 09/20 prednisone [id number] Yue Schulte PA-C ELIQUIS 5 MG TABS TAKE 1 TABLET (5 MG) BY MOUTH TWO TIMES DAILY. 04/28 apixaban [id number] Yue Garciail PA-C TAMSULOSIN HCL 0.4 MG CAPS TAKE 1 CAPSULE (0.4 MG) BY MOUTH ONCE DAILY AFTER A MEAL. 04/28 tamsulosin [id number] Yue Garciail PA-C ID NOW COVID-19 KIT TEST DIRECTED TODAY 09/17 covid-19 molecular test assay [id number] Marco Antonio Alicea MD TRUE METRIX BLOOD GLUCOSE TEST STRP TEST 2 TIMES PER WEEK. 04/28 blood sugar diagnostic [id number] Marco Antonio Alicea MD LISINOPRIL-HYDRO CHLOROTHIAZIDE 20-25 MG TABS 04/28 lisinopril-hydr ochlorothiazide 40426389040 Marco Antonio Alicea MD METFORMIN HCL ER 500 MG [id number] 04/28 metformin [id number] Marco Antonio Alicea MD GLIPIZIDE ER 2.5 MG [id number]-[id number] 09/08 glipizide 54461063712 Marco Antonio Alicea MD SODIUM CHLORIDE 0.9 % SOLN 04/28 sodium chloride 32506521273 Marco Antonio Alicea MD Medications Administered No [...] and results reviewed. Total score [M MSE] [id number] Normal Total scor e [MoCA] MMSE SCORE [...] Yes Consent To Release information to the [employer] ([employer]) Plan of Care Type Date Detail Pending [...] ORDERS Follow up ABBY ORDERS Patient Instructions [facility]-[id number] Documentation of current medicatio ns ORDERS Follow up CPT-10535 Nerve Conduction 11-12 studies CPT-16597 EMG with NCS (5+ muscles) - 2 limbs 12/22 ORDERS Patient Instructions LOINC 17701-7 MMSE ORDERS Follow up ABBY ORDERS Patient Instructions ORDERS Follow up [facility]-[id number] Documentation of current medicatio ns ORDERS Patient Instructions ORDERS Follow up ABBY in clinic or telemedicine 2 LOINC 33609-1 MMSE ORDERS Patient Instructions ORDERS Follow up telemedicine 10/31 [facility]-[id number] Documentation of current medicatio ns ORDERS Neuropsychology Evaluation 2 [facility]-[id number] Documentation of current medicatio ns LOINC 66480-3 MMSE Vital Signs No information available. Immunizations No information available. Advance Directives No information available.
[2025-01-05 11:55] LABS: Lactate Sepsis w/Reflex* 1.8 mmol/L (0.5-1.9)
[2025-01-05 11:59] LABS: Hematocrit* 34.2 % (37.0-53.0); Hemoglobin* 10.8 gm/dL (13.5-17.5); Immature Granulocytes Abs Auto 0.03 K/uL (0.00-0.30); Immature Granulocytes Pct Auto 0.3 %; Mean Corpuscular HGB Conc 32 gm/dL (32-36); Mean Corpuscular Hemoglobin 26 pg (26-34); Mean Corpuscular Volume 82 fL (80-100); RDW Coefficient of Variation % 15.1 % (11.5-15.5); Red Blood Count* 4.18 m/uL (4.30-5.90); White Blood Count* 9.25 K/uL (4.50-11.00)
[2025-01-05 12:05] LABS: Lymphocytes Absolute Auto 1.00 K/uL (0.90-2.90); Slide Review Reflex No
[2025-01-05 12:15] LABS: Albumin* 3.3 g/dL (3.3-5.0); Chloride* 96 mmol/L (96-114)
[2025-01-05 12:16] LABS: Potassium* 4.0 mmol/L (3.6-5.1); Sodium* 133 mmol/L (135-149)
[2025-01-05 12:18] LABS: Alanine Aminotransferase* 42 U/L (4-50); Alkaline Phosphatase* 173 U/L (40-150); Anion Gap 12 mEq/L (7-15); Aspartate Amino Transferase* 28 U/L (12-35); Bilirubin Direct* 0.4 mg/dL (0.0-0.5); Bilirubin Total* 1.6 mg/dL (0.1-1.5); Blood Urea Nitrogen* 20 mg/dL (7-30); Carbon Dioxide* 25 mmol/L (20-32); Creatinine* 1.0 mg/dL (0.5-1.5); Est. Creatinine Clearance* 47.85; Estimated Glomerular Filt Rate 73 ml/min; Total Protein* 6.2 g/dL (6.0-8.3)
[2025-01-05 12:19] LABS: Calcium* 8.5 mg/dL (8.4-10.6); Glucose* 241 mg/dL (60-115)
[2025-01-05 12:30] LABS: Appearance Urine Slightly Cloudy (Clear)
[2025-01-05 12:32] LABS: Troponin, Point-of-Care* 0.02 ng/ml (0.01-0.04)
[2025-01-05 12:35] LABS: Procalcitonin* 0.12 ng/mL (<0.50)
[2025-01-05 12:42] LABS: NT Pro B Type NatriureticPept* 4250 pg/mL (See Note)
[2025-01-05 12:50] LABS: TSH With Reflex to FT4* 1.610 uIU/mL (0.270-4.200)
== END 2025-01-05 14:16 | disposition home or self-care (01) ==
PROVIDERS: Emergency Provider Emergency Medicine; PCP Family Medicine
DX: N48.1 Balanitis (principal); N39.0 Urinary tract infection, site not specified; G93.39 Other post infection and related fatigue syndromes; I11.0 Hypertensive heart disease with heart failure
CPT/HCPCS: 36415; 71045; 80048; 80076; 81001; 83605; 83690; 83735; 83880; 84145; 84443; 84484; 85025; 86140; 87086; 93005; 99284; 99285

== ENCOUNTER 2025-01-08 09:27 | Outpatient (CLI) | payer MEDICARE, SELFPAY | END 2025-01-08 09:28 | disposition home or self-care (01) | LOC: AMB 01-10 19:36 | PROVIDERS: PCP Family Medicine; Visit Provider Family Medicine | DX: E11.649 Type 2 diabetes mellitus with hypoglycemia without coma (principal) | CPT/HCPCS: A0998 ==

== ENCOUNTER 2025-01-08 12:53 | Emergency (ER) | payer MEDICARE, SELFPAY ==
[2025-01-08] VITALS (31 sets, daily range): BP systolic 106–140; BP diastolic 55–85; PULSE 67–74; RESP 8–27; TEMP 36.7; O2SAT 64–100
--- OUTSIDE RECORDS SUMMARY | 2025-01-08 12:55 | XMS_ITS | Clinical Summary ---
Author Organization [facility] Address [address] [place] [address] Care Team Providers Care Head Of It Name Role Phone Clinic, Not Listed Unavailable Unavailable Bari Toscano MD Primary Care Provider America Lim PA-C Unavailable [phone] Allergies No known active allergies Medications acetaminophen [...] doses. 12 tablet 5 01/07/20 25 Active Problems Problem Noted Date Diagnosed Date [...] Description 11/16/2024 7:30 AM CDT Ancillary Procedure [address] [place] [phone] Memory loss or impairment 10/20/2024 Results Follow-Up [address] [place] [phone] America Lim PA-C METHYLMALONIC ACID, SERUM ([facility]), TSH ([facility]), VITAMIN D, 25-HYDROXY ([facility]), Additional followed-up results: 5 10/09/2024 2:00 PM CDT Office Visit [facility] - [address] [place] [address] America Lim PA-C Memory loss [...] 06/03/19 25, 06/09/2023, 06/12/2022, Additional history exists Creatinine 12/12/2025 [...] not included. PATIENT NAME: Mac Yarbrough LOCATION: [place] TEST DATE: 11/16/2024 : 1940 TECH NAME: [...] discharges were observed. Javy Acosta MD Neurologist, [facility] 2:57 PM 11/17/2024 us America Lim PA-C EEG ORDERABLE Final Res ult * (ABNORMAL) ATN PROFILE ([facility]) (10/09/2024 1:20 PM CDT) A -- Beta-amyloid 42/40 Ratio ([facility]) 0.085(L) >0.102 [facility] 1 Beta-amyloid 42 ([facility]) 18.30 pg/mL [facility] 1 Beta-amyloid 40 ([facility]) 216.27 pg/mL [facility] 1 T -- [id number] ([facility]) 0.92 0.00 - 0.97 pg/mL [facility] 1 N -- NfL, Plasma ([facility]) 12.50(H) 0.00 - 9.13 pg/mL [facility] 1 ATN SUMMARY [1] ([facility]) Comment [facility] Comment: A+ T- N+ A low beta-amyloid 42/40 ratio and a high NfL concentration were observed. A normal iSnu330 concentration was observed at this time. These [...] developed and their performance characteristics determined by [employer]. They have not been cleared or approved by the Food and Drug Administration. * METHODOLOGY: Beta-amyloid 42/40 Ratio: [employer]ex Chemiluminescence Enzyme Immunoassay (CLEIA) NfL and p-and768: Tests performed by [facility] Electrochemiluminescence Immunoassay (ECLIA). Values obtained with different methods cannot be used interchangeable. These tests were developed and their performance characteristics determined by [facility]. They have not been cleared or approved by the Food and Drug Administration. * p-[id number] INFORMATION: For individual 0-55 years of age: [...] are based on a consensus between National [place] for Age and the Internation Working Group [...] - 10/20/2024 11:09 AM CDT Performed at: 01 - [facility] [id number] [place]ond Operator: Kim Jim MD, Phone: [phone] us America Lim PA-C [facility] ORDERABLES Final Result [facility] 1 * (ABNORMAL) PHOSPHORYLATED TAU 217 (PTAU-217), PLASMA ([facility]) (10/09/2024 1:20 PM CDT) p-auw373 ([facility]) 0.25(H) 0.00 - 0.18 pg/mL [facility] 3 Comment: Clinical cutoff value was established using samples from a patient cohort characterized with amyloid PET data. A p-mjd971 value of >0.18 is a reported surrogate marker for beta amyloid pathology, and can be used to facilitate biological identification of Alzheimer's disease (1). p-ufs127 has also been used in clinical trials to monitor patients on anti-amyloid therapy (2,3). Test performed by [employer] chemiluminescent enzyme immunoassay (CLEIA). Values obtained with different methods cannot be used interchangeably. The validated limit of quantification is 0.06 pg/mL. Assay detection limit is 0.03 pg/mL. Footnotes ([facility]) Comment [facility] 3 Comment: 1. Mele Prater, et al. Diagnostic Accuracy of a Plasma Phosphorylated Tau 217 Immunoassay for Alzheimer Disease Pathology. KAMILA neurology (2023). 2. Mele Prater et al. Differential roles of A42/40, p-yic492 and p-ehn195 for Alzheimer's trial selection and disease monitoring. Nature medicine 28.12 (2021): 7213-0853. 3. Sridevi GREY, Ruth M, Sindhu SC, et al. Association of [place] Treatment With Exploratory Plasma Biomarkers in Early Symptomatic Alzheimer Disease: A Secondary Analysis of the TRAILBLAZER-ALZ Randomized Clinical Trial. KAMILA Neurol. 2021;79(12):9473-1346. Blood 10/09/2024 1:20 PM CDT 10/09/2024 11:00 PM CDT Narrative [facility] 3 - 10/20/2024 11:09 AM CDT Test(s) 960873-q-vgx985 was developed and its performance characteristics determined by [facility]. It has not been cleared or approved by the Food and Drug Administration. Performed at: 03 - [facility] [address] [place] [id number] Hot Pond Operator: Tessa Morales MD, Phone: [phone] America Lim PA-C [facility] ORDERABLES Final Result [facility] * METHYLMALONIC ACID, SERUM ([facility]) (10/09/2024 1:20 PM CDT) Methylmalonic Acid ([facility]) 109 0 - 378 nmol/L [facility] 1 Blood 10/09/2024 1:20 PM CDT 10/09/2024 11:00 PM CDT Narrative [facility] 1 - 10/20/2024 11:09 AM CDT Test(s) 994978-Qqsfzdwagbtgf Acid, Serum was developed and its performance characteristics determined by [facility]. It has not been cleared or approved by the Food and Drug Administration. Performed at: [facility] [address] [id number] [place]ond Operator: Kim Jim MD, Phone: [phone] America Lim PA-C [facility] ORDERABLES Final Result Performing Organization Address [facility] Co de Phone Number [facility] 1 * (ABNORMAL) VITAMIN D, 25-HYDROXY ([facility]) (10/09/2024 1:20 PM CDT) Vitamin D,25 Hydroxy ([facility]) 20.8(L) 30.0 - 100.0 ng/mL [facility] 4 Comment: Vitamin D deficiency has been defined by the [place] of Medicine and an Endocrine Society practice guideline as a level of serum 25-OH vitamin D less than 20 ng/mL (1,2). The Endocrine Society went on to further define vitamin D insufficiency as a level between 21 and 29 ng/mL (2). 1. IOM ([place] of Medicine). 2010. Dietary reference intakes for calcium and D. [place]: The National Academies Press. 2. Elroy MF, Hilario NC, Tracie CASH, et al. Evaluation, treatment, and prevention of vitamin D deficiency: an Endocrine Society clinical practice guideline. JCEM. 2010; 96(7):1911-30. Blood 10/09/2024 1:20 PM CDT 10/09/2024 11:00 PM CDT Narrative [facility] 4 - 10/20/2024 11:09 AM CDT Performed at: - [facility] [address] [id number] Hot Pond Operator: Angel Rodriguez MD, Phone: [phone] us America Lim PA-C [facility] ORDERABLES Final Result Performing Organization Address [facility]/ZIP Co de Phone Number [facility] 4 * TSH ([facility]) (10/09/2024 1:20 PM CDT) TSH ([facility]) 1.040 0.450 - 4.500 uIU/mL [facility] 4 Blood 10/09/2024 1:20 PM CDT 10/09/2024 11:00 PM CDT Narrative [facility] 4 - 10/20/2024 11:09 AM CDT Performed at: [address] [place] [id number] Hot Pond Operator: Angel Rodriguez MD, Phone: [phone] America Lim PA-C [facility] ORDERABLES Final Result Performing Organization Address [facility] Co de Phone Number [facility] 4 * VITAMIN B12 ([facility]) (10/09/2024 1:20 PM CDT) [facility] Vitamin B12 ([facility]) 924 232 - 1,245 pg/mL [facility] 4 Blood 10/09/2024 1:20 PM CDT 10/09/2024 11:00 PM CDT Narrative [facility] 4 - 10/20/2024 11:09 AM CDT Performed at: [address] [place] [id number] Hot Pond Operator: Angel Rodriguez MD, Phone: [phone] America Lim PA-C [facility] ORDERABLES Final Result Performing Organization Address [facility] de Phone Number [facility] 4 * APOE ALZHEIMER'S RISK ([facility]) (10/09/2024 1:20 PM CDT) Pathologist [facility] Method APOE ([facility]) Comment [facility] 2 Comment: Patient DNA is assayed for the APOE genotype by PCR amplification of a specific region in exon 4 of the APOE gene followed by digestion with restriction enzyme Wet Cleaner Machine I and separation of fragments by polyacrylamide [...] For inquiries or genetic consultation, please call [facility] at . Comment APOE ([facility]) Comment [facility] [...] the APOE4 variant and by approximately 10 [id number] for individuals with two copies of this [...] developed and its performance characteristics determined by [employer]. It has not been cleared or approved by the Food and Drug Administration. The FDA has determined that such clearance or approval is not necessary. REFERENCES Pricilla Ramírez et al. Sex modifies the APOE-related risk of developing Alzheimer disease. Annal Neurol 2014;75(4):563-573 Osiel DE LA GARZA. Alzheimer Disease Overview. [employer] ([employer]). Emma THOMPSON et al., editors. [facility]: [facility], [place], [place]. Last revised 2014. Kaushik JS et al. Genetic counseling and testing for Alzheimer disease: Joint practice guidelines of the [place] College [employer] Medical Genetics and the National Society of Genetic Counselors. Keyonna in Med 2011;136597-605. Twan CABA. Apolipoprotein E: Implications for AD neurobiology, epidemiology and risk assessment. Neurobiology of Aging 2011;32:778-790 Blood 10/09/2024 1:20 PM CDT 10/09/2024 11:00 PM CDT Narrative [facility] 2 - 10/20/2024 11:09 AM CDT Performed at: [facility] [address] [id number] [place]ond Operator: Jovi Daniel MD, Phone: [phone] us America Lim PA-C [facility] ORDERABLES Final Result [facility] 2 * CREATININE EGFR (10/31/2014 12:10 PM CDT) Creatinine 1.01 0.70 - 1.30 mg/dL 10/31/2014 12:46 PM CDT [facility] Est GFR (CKD-EPI) >60 >60 mL/min 10/31/2014 12:46 PM CDT [facility] EST GFR IF AM >60 >60 mL/min 10/31/2014 12:46 PM CDT [facility] Blood 10/31/2014 12:1 0 PM CDT 10/31/2014 12:15 PM CDT us Ericstephen Altamirano MD CHEMISTRY ORDERABLE Final R esult [facility] [address] [place] [address] from Last 3 Months or Most Recently Relevant to Health Maintenance Insurance MEDICARE PART A & B [facility] MEDICARE ADVANTAGE Care Teams Head Of It Relationship Specialty Start Date End Date Clinic, Not Listed PCP - Primary Care Clinic 04/06/06 Bari Toscano MD [address] [place] [address] PCP - General Family Medicine 08/30/24 America Lim PABrandonC [address] [place] [address] [address] [place] [address] Neurology 08/30/24"
--- OUTSIDE RECORDS SUMMARY | 2025-01-08 12:55 | XMS_ITS | Encounter Summary ---
Author Organization [facility] Address [address] [place] [address] Care Team Providers Care Egg Setter Name Role Phone Clinic, Not Listed Unavailable Unavailable Bari Toscano MD Primary Care Provider America Lim PA-C Unavailable [phone] Encounter Details Date Type Department Care Team (Late st Contact Info) Description 10/20/2024 Results Follow-Up [facility] - [address] [place] [phone] America Lim PA-C [address] [place] [address] [place] [address] METHYLMALONIC ACID, SERUM ([facility]), TSH ([facility]), VITAMIN [...] deficiency documented in this encounter Care Teams Egg Setter Relationship Specialty Start Date End Date Clinic, Not Listed PCP - Primary Care Clinic 04/06/06 Bari Toscano MD [address] [place] [address] PCP - General Family Medicine 08/30/24 America Lim PA-C [address] [facility] [address] [place] [address] Neurology 08/30/24 documented as of this encounter
--- OUTSIDE RECORDS SUMMARY | 2025-01-08 12:56 | XMS_ITS | Data Portability ---
Author Organization [place] - [facility], [employer] Address [address] [facility] [place] [address] Care Team Providers Care Elementary Special Education Teacher Name Role Phone LINDSAY TOSCANO Primary Care [...] Available No t Available potassium chloride ER 10 mEq capsule,exte nded release TAKE TWO CAPSULES (20MEQ) BY MOUTH ONCE DAILY FOR 30 DAYS active Not Available Not Available No t Available prednisone 10 mg tablet TAKE ONE TO ONE AND ONE-HALF TABLETS (10-15 MG) BY MOUTH ONCE DAILY WITH A MEAL. active Not Available Not Available No t Available fluconazole 150 mg tablet TAKE ONE TABLET BY MOUTH EVERY 3 DAYS FOR 2 DOSES. active Not Available Not Available No t Available glipizide ER 10 mg tablet, extended release 24 hr TAKE 2 TABLETS (20 MG) BY MOUTH ONCE DAILY BEFORE A MEAL. active Not Available Not Available No t Available isosorbide mononitrate ER 30 mg tablet,exten ded release 24 hr TAKE 1 TABLET (30 [...] Not Available Not Available No t Available ciprofloxaci n 500 mg tablet TAKE 1 TABLET BY MOUTH EVERY 12 HOURS FOR 7 DAYS. active Not Available Not Available Not Available terbinafine HCl 250 mg tablet TAKE 1 TABLET (250 MG) BY MOUTH ONCE DAILY. active Not Available Not Available No t Available potassium chloride ER 20 mEq tablet,exten ded release(part /cryst) TAKE 1 TABLET (20 MEQ) BY MOUTH ONCE DAILY. active Not Available Not Available No t Available tamsulosin 0.4 mg capsule TAKE 1 CAPSULE (0.4 MG) BY MOUTH ONCE DAILY AFTER A MEAL. active Not Available Not Available No t Available prednisone 1 mg tablet TAKE 3 TABLETS BY MOUTH DAILY FOR TWO WEEKS, THEN IF TOLERATED REDUCE BY 1 TABLET (1 MG) EVERY TWO WEEKS. active Not Available Not Available N ot Available cephalexin 500 mg capsule TAKE ONE CAPSULE BY MOUTH FOUR TIMES A DAY active Not Available Not Available Not Available triamcinolon e acetonide 0.1 % topical ointment APPLY TOPICALLY TO AFFECTED AREA(S) THREE TIMES DAILY. active Not Available Not Available No t Available nitroglyceri n 0.[address] 1 TABLET (0.4 MG) UNDER THE TONGUE EVERY 5 MINUTES IF NEEDED FOR CHEST PAIN. UP TO 3 TABLETS IN 15 MINUTES. active Not Available Not Available Not Available gabapentin 300 mg capsule TAKE 1 CAPSULE (300 MG) BY MOUTH AT BEDTIME. active Not Available Not Available No t Available lisinopril 20 mg-hydrochlo rothiazide 25 mg tablet TAKE 1 TABLET BY MOUTH ONCE DAILY. active Not Available Not Available No t Available furosemide 20 mg tablet TAKE 2 TABLETS BY MOUTH DAILY AT AT 8 A.M. FOR 30 DAYS. active Not Available Not Available No t Available metoprolol succinate ER 25 mg tablet,exten ded release 24 hr TAKE 1 TABLET (25 MG) BY MOUTH ONCE DAILY. active Not Available Not Available No t Available lorazepam 1 mg tablet TAKE 1 TABLET (1MG) ONCE 30 TO 90 MINUTES BEFORE MRI PROCEDURE; IF NEEDED DUE TO INCOMPLETE RESPONSE, MAY REPEAT 1/2 TABLET (0.5MG) AFTER 30 TO 60 MINUTES active Not Available Not Available N ot Available metformin ER 500 mg tablet,exten ded release 24 hr TAKE 4 TABLETS (2,000 MG) BY MOUTH ONCE DAILY WITH EVENING MEAL. active Not Available Not Available No t Available rosuvastatin 20 mg tablet TAKE 1 TABLET (20 MG) BY MOUTH AT BEDTIME. active Not Available Not Available No t Available tadalafil 5 mg tablet TAKE ONE TABLET BY MOUTH EVERY DAY active Not Available Not Available No t Available trospium 20 mg tablet TAKE 1 TABLET BY MOUTH DAILY. active Not Available Not Available No t Available cholecalcife rol (vitamin D3) 1,250 mcg (50,000 unit) capsule TAKE ONE CAPSULE BY MOUTH (50,000 UNITS) ONCE WEEKLY FOR 12 DOSES active Not Available Not Available No t Available Eliquis 5 mg tablet TAKE 1 TABLET (5 MG) BY MOUTH TWO TIMES DAILY. active Not Available Not Available No t Available Jardiance 10 mg tablet TAKE 1 TABLET (10 MG) BY MOUTH ONCE DAILY. active Not [...] Updated DateTime 07/05/2024 172.72 cm 30 kg/m2 85374.7 g Meseret Zimmer - [facility] 07/05/2024 10:12:28 Social History None recorded. Functional Status None recorded. Mental Status None recorded. Family History Nothing Reported. Medical History No medical history recorded. 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 121609561 B35.1 96721 Ingrowing nail 947277201 L60.0 999 Pain in toe 561209486 M7 9.674 M79.675 G89.29 [id number] Acquired h allux malleus 32767040 M20.40 [id number] ANDREW GARCIA DPM [place] [facility] [address] [place] [address] [phone] [id number] 10/11/2024 14:48:45 10/11/2024 17:14:00 Polyneuropathy due to type 2 diabetes mellitus 191749059 E11.42 1774843196 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 727251343 B35.1 77052 Ingrowing nail 767718707 L60.0 999 Pain in toe 367884102 M7 9.674 M79.675 G89.29 [id number] Acquired h allux malleus 17269021 M20.40 [id number] Health Concerns Section Related Observation LastModified by Organization Detai ls LastModified Time None Recorded Concern Status LastModified by Organization Details LastModified Time None Recorded Advance Directives Directive None Recorded Payers Insurance Date Sequence Insurance Name Policy Number Policy Sam Covered Member ID Sam Member ID Guarantor Name 01/05/2025 1 [facility]: (MEDICARE REPLACEMENT PPO) [id number] Enrike Coleman [id number] Enrike Coleman Notes Date Note Type Note [...] worn them consistently. ANDREW GARCIA DPM [address] [place], [address], [facility] - [facility] 07/05/2024 11:12:26 [...] [place]ano on 10/11/24 ANDREW GARCIA DPM [address] [place], [address], [facility] - [facility] 10/11/2024 15:48:11
--- OUTSIDE RECORDS SUMMARY | 2025-01-08 12:56 | XMS_ITS | Clinical Summary ---
Author Organization [facility] Address [address] , [address] [place] [address] Phone Care Team Providers Care Watch Parts Grinder Name Role Phone MedRec, MedRec Unavailable Conditions or Problems Problem Name Problem Code Onset Date Status Entry Date Provider Comment Standard Description Annotate Leg weakness, bilateral 701425242 (SNOMED CT) Active Marco Antonio Alicea MD Paresis of lower extremity Peripheral polyneuropathy 259388045 (SNOMED CT) Active Marco Antonio Alicea MD Peripheral nerve disease Nonspecific paroxysmal spell 2397430 (SNOMED CT) 03/26 Active 03/26 Marco Antonio Alicea MD Disturbance of consciousness Mild cognitive impairment 902111801 (SNOMED CT) 03/19 Active 03/19 Marco Antonio Alicea MD Mild neurocognitive disorder Memory loss 21579569 (SNOMED CT) 10/31 Active 10/31 Marco Antonio Alicea MD Amnesia Medications Medication Instructions Start Date Stop Date Generic Name [facility] Provider METFORMIN HCL ER 500 MG [id number] 04/28 metformin (glucophage xr) 73851552031 Marco Antonio Alicea MD SODIUM CHLORIDE 0.9 % SOLN 04/28 sodium chloride 14739097419 Marco Antonio Alicea MD GABAPENTIN 300 MG CAPS TAKE 1 CAPSULE (300 MG) BY MOUTH AT BEDTIME. 04/28 gabapentin 59182366899 Marco Antonio Alicea MD ELIQUIS 5 MG TABS TAKE 1 TABLET (5 MG) BY MOUTH TWO TIMES DAILY. 04/28 apixaban [id number] Marco Antonio lAicea MD LISINOPRIL-HYDRO CHLOROTHIAZIDE 20-25 MG TABS 04/28 lisinopril-hydr ochlorothiazide 47345906525 Marco Antonio Alicea MD TRUE METRIX BLOOD GLUCOSE TEST STRP TEST 2 TIMES PER WEEK. 04/28 blood sugar diagnostic 14049472937 Marco Antonio Alicea MD TROSPIUM CHLORIDE 20 MG TABS TAKE ONE TABLET BY MOUTH DAILY 04/28 trospium 74817840554 Marco Antonio Alicea MD GLIPIZIDE ER 2.5 MG [id number] 04/28 glipizide 90755865672 Marco Antonio Alicea MD PREDNISONE 10 MG TABS TAKE 1-2 TABLETS (10-20 MG) BY MOUTH ONCE DAILY WITH A MEAL. DIRECTED 04/28 prednisone 12084645794 Marco Antonio Alicea MD TAMSULOSIN HCL 0.4 MG CAPS TAKE 1 CAPSULE (0.4 MG) BY MOUTH ONCE DAILY AFTER A MEAL. 04/28 tamsulosin 21055729187 Marco Antonio Alicea MD ENTRESTO 24-26 MG TABS TAKE 1 TABLET BY MOUTH TWO TIMES DAILY. sacubitril-vals karin 88022251685 Marco Antonio Alicea MD VITAMIN B-12 1,000 MCG TAB 1000 TAKE 1 TABLET (1,000 MCG) BY MOUTH ONCE DAILY. VITAMIN B-12 1,000 MCG TAB 1000 Marco Antonio Alicea MD JARDIANCE 10 MG TABS TAKE 1 TABLET (10 MG) BY MOUTH ONCE DAILY. empagliflozin 85180632387 Marco Antonio Alicea MD ELIQUIS 5 MG TABS TAKE 1 TABLET (5 MG) BY MOUTH TWO TIMES DAILY. apixaban 28749403323 Marco Antonio Alicea MD TROSPIUM CHLORIDE 20 MG TABS TAKE ONE TABLET BY MOUTH DAILY trospium 97759952291 Marco Antonio Alicea MD FUROSEMIDE 20 MG TABS TAKE 1 TABLET (20 MG) BY MOUTH ONCE DAILY IN THE MORNING. furosemide 25920508733 Marco Antonio Alicea MD ROSUVASTATIN CALCIUM 20 MG TABS TAKE 1 TABLET (20 MG) BY MOUTH AT BEDTIME. rosuvastatin 64755467495 Marco Antonio Alicea MD METOPROLOL SUCCINATE ER 25 MG [id number] TAKE 1 TABLET (25 MG) BY MOUTH ONCE DAILY. metoprolol succinate 60015765644 Marco Antonio Alicea MD TAMSULOSIN HCL 0.4 MG CAPS TAKE 1 CAPSULE (0.4 MG) BY MOUTH ONCE DAILY AFTER A MEAL. tamsulosin 60636693402 Marco Antonio Alicea MD ISOSORBIDE MONONITRATE ER 30 MG [id number] TAKE 1 TABLET (30 MG) BY MOUTH ONCE DAILY. isosorbide mononitrate 95373451891 Marco Antonio Alicea MD METFORMIN HCL ER 500 MG [id number] TAKE 4 TABLETS (2,000 MG) BY MOUTH ONCE DAILY WITH EVENING MEAL. metformin (glucophage xr) [id number] Marco Antonio Alicea MD NITROGLYCERIN 0.[address] 1 TABLET (0.4 MG) UNDER THE TONGUE EVERY 5 MINUTES IF NEEDED FOR CHEST PAIN. UP TO 3 TABLETS IN 15 MINUTES. nitroglycerin 59389749987 Marco Antonio Alicea MD GABAPENTIN 300 MG CAPS TAKE 1 CAPSULE (300 MG) BY MOUTH AT BEDTIME. gabapentin 10450097565 Marco Antonio Alicea MD POTASSIUM CHLORIDE GEM ER 20 MEQ CR-TABS TAKE 1 TABLET (20 MEQ) BY MOUTH ONCE DAILY. potassium chloride 91838629781 Marco Antonio Alicea MD TERBINAFINE HCL 1 % CREA APPLY TOPICALLY TO AFFECTED AREA(S) TWO TIMES DAILY. terbinafine hcl 13410637903 Marco Antonio Alicea MD TERBINAFINE HCL 250 MG TABS TAKE 1 TABLET (250 MG) BY MOUTH ONCE DAILY. terbinafine hcl [id number] Marco Antonio Alicea MD GLIPIZIDE ER 10 MG [id number] TAKE 2 TABLETS (20 MG) BY MOUTH ONCE DAILY BEFORE A MEAL. glipizide [id number] Marco Antonio Alicea MD PREDNISONE 20 MG TABS TAKE 1 TABLET (20 MG) BY MOUTH ONCE DAILY WITH A MEAL. 09/20 prednisone 06809906728 Yue Schulte PA-C TROSPIUM CHLORIDE 20 MG TABS TAKE ONE TABLET BY MOUTH DAILY 04/28 trospium [id number] Yue Garciail PA-C PREDNISONE 10 MG TABS TAKE 1-2 TABLETS (10-20 MG) BY MOUTH ONCE DAILY WITH A MEAL. DIRECTED 04/28 prednisone [id number] Yue Schulte PA-C GABAPENTIN 300 MG CAPS TAKE 1 CAPSULE (300 MG) BY MOUTH AT BEDTIME. 09/08 gabapentin [id number] Yue GIL-C ID NOW COVID-19 KIT TEST DIRECTED TODAY 09/17 covid-19 molecular test assay [id number] Yue Schulte PA-C PREDNISONE 20 MG TABS TAKE 1 TABLET (20 MG) BY MOUTH ONCE DAILY WITH A MEAL. 09/20 prednisone 34161549538 Yue Schulte PA-C ELIQUIS 5 MG TABS TAKE 1 TABLET (5 MG) BY MOUTH TWO TIMES DAILY. 04/28 apixaban [id number] Yue Garciail PA-C TAMSULOSIN HCL 0.4 MG CAPS TAKE 1 CAPSULE (0.4 MG) BY MOUTH ONCE DAILY AFTER A MEAL. 04/28 tamsulosin 24732904040 Yue Garciail PA-C ID NOW COVID-19 KIT TEST DIRECTED TODAY 09/17 covid-19 molecular test assay [id number] Marco Antonio Alicea MD TRUE METRIX BLOOD GLUCOSE TEST STRP TEST 2 TIMES PER WEEK. 04/28 blood sugar diagnostic 11400575621 Marco Antonio Alicea MD LISINOPRIL-HYDRO CHLOROTHIAZIDE 20-25 MG TABS 04/28 lisinopril-hydr ochlorothiazide 88440939034 Marco Antonio Alicea MD METFORMIN HCL ER 500 MG [id number] 04/28 metformin [id number] Marco Antonio Alicea MD GLIPIZIDE ER 2.5 MG [id number] 09/08 glipizide 44694589251 Marco Antonio Alicea MD SODIUM CHLORIDE 0.9 % SOLN 04/28 sodium chloride 40535955103 Marco Antonio Alicea MD Medications Administered No [...] and results reviewed. Total score [M MSE] [id number] Normal Total scor e [MoCA] MMSE SCORE [...] Yes Consent To Release information to the [employer]) Plan of Care Type Date Detail Pending [...] ORDERS Follow up ABBY ORDERS Patient Instructions [facility]-[id number] Documentation of current medicatio ns ORDERS Follow up CPT-03861 Nerve Conduction 11-12 studies CPT-59504 EMG with NCS (5+ muscles) - 2 limbs 12/22 ORDERS Patient Instructions LOINC 59490-9 MMSE ORDERS Follow up ABBY ORDERS Patient Instructions ORDERS Follow up [facility]-[id number] Documentation of current medicatio ns ORDERS Patient Instructions ORDERS Follow up ABBY in clinic or telemedicine 2 LOINC 05325-5 MMSE ORDERS Patient Instructions ORDERS Follow up telemedicine 10/31 [facility]-[id number] Documentation of current medicatio ns ORDERS Neuropsychology Evaluation 2 [facility]-[id number] Documentation of current medicatio ns LOINC 32177-0 MMSE Vital Signs No information available. Immunizations No information available. Advance Directives No information available.
--- OUTSIDE RECORDS SUMMARY | 2025-01-08 12:56 | XMS_ITS | Continuity of Care Document ---
Author Organization [place] [facility] Address [address] [place] [address] Care Team Providers Care Med Asst Name Role Phone LINDSAY SANFORD Referring Provider [phone] Assessment No assessment recorded. Plan of Treatment [...] [place] ro [facility], [address], [place], [address], 12/05/2024 12:15:11 PSA, total, serum or plasma 2024 025 [email or web address] [facility], [address], [place], [address], 12/05/2024 13:23:25 Referral None record ed. Procedures None record ed. Surgeries None record ed. Imaging CT, urogra m - PLEASE CALL PT TO CLARIBEL BERGMAN 2024 025 [facility], [address], [place], [address], 12/13/2024 11:02:23 Medication Orders tadala maureen 5 mg tablet 2024 025 [facility], [address] [place], [address], 12/05/2024 14:50:32 Patient TargetsNo targets recorded. Patient [...] for provi gricelda revie w. Not Available [facility] [address], [place], [address], 11/11/2024 10:45:08 11/11/1911/10/2024 urina lysis , dipst ick BLOOD Large (250 RBC/uL ) Not Available [facility] [address], [place], [address], 11/10/2024 11:17:20 11/11/1911/10/2024 urina lysis , dipst ick NITRITES Negati ve Not Available [facility] [address], [place], [address], 11/10/2024 11:17:20 11/11/1911/10/2024 urina lysis , dipst ick LEUKOCYTES Small (25 WBC/uL ) Not Available [facility] [address], [place], [address], 11/10/2024 11:17:20 12/06/19 25 12/05/2024 PSA, serum or plasm a PSA 13.7ng /mL 0-4.0 NG/mL Not Available [facility] [address], [place], [address], 11/22/2024 15:45:12 12/14/19 25 12/12/2024 CT, urogr am No observ ation record ed. [facility] [address], [place], [address], 12/18/2024 14:28:50 Result Notes None recorded. Procedures Surgical History Date Name Laterality Status Provider Name and Address Organization Details Recorded Time 5 Cystoscopy- male completed Louis Cook MD [address] [place] [address],[address], [place], [address], [facility] 12/26/2024 19:09:00 5 Keflex post Cysto completed Carlos Enrique falcon [facility] 12/26/2024 13:31:05 5 Urinalysis completed Carlos Enrique falcon [facility] 12/26/2024 13:30:59 5 HAND BASEBALL SEWER/blood draw completed Carlos Enrique falcon [facility] 12/05/2024 12:14:49 5 Bladder Scan completed Louis Cook MD [address] [place] [address],[address], [place], [address], [facility] 12/05/2024 12:32:40 5 Urine Culture completed Meli Rowan [facility] 11/10/2024 11:16:59 5 Urinalysis completed Meli Rowan [facility] 11/10/2024 11:16:57 5 Urine Culture completed Anastasiia Ingram [facility] 09/25/2024 12:27:34 5 Urinalysis completed Anastasiia Ingram [facility] 09/25/2024 11:46:34 5 Bladder Scan completed Anastasiia Ingram [facility] 09/25/2024 11:46:26 5 Blood Draw/HAND BASEBALL SEWER/PSA RESULTS completed Louis Cook MD [address] [place] [address],[address], [place], [address], [facility] 05/30/2024 12:41:37 4 Blood Draw/HAND BASEBALL SEWER/PSA RESULTS completed Carlos Enrique falcon [facility] 10/11/2023 10:18:27 3 Heart Surgery completed Louis Cook MD [address] [place] [address],[address], [place], [address], [facility] 09/28/2022 16:37:35 procedure on spine completed Louis Cook MD [address] [place] [address],[address], [place], [address], [facility] 09/28/2022 16:37:23 Imaging Results None [...] Updated DateTime 12/05/2024 175.26 cm 31 kg/m2 21906.4 g Louis Cook MD [address] [place] [address],[facility] [address], [place], [address] 12/05/2024 12:32:21 Social History Question Answer Notes LastModified by Organizat [employer] Details LastModified Time Tobacco Smoking Status Former Smoker Louis Cook MD [address] [place] [address],[facility] [address], [place], [address], [facility] 09/28/2022 16:37:00 What Is Your [...] quadrivalent, PF 3 completed Louis Cook MD [address] [place] [address],[address], [address] [place] [address] Urology 04/26/2023 10:59:30 RSV, recombinant, protein subunit RSVpreF, adjuvant reconstituted, 0.5 mL, PF 3 completed Louis Cook MD [address] [place] [address],[address], [address], [facility] 04/26/2023 10:59:31 COVID-19, mRNA, LNP-S, PF, 50 mcg/0.5 mL 3 completed Louis Cook MD [address] [place] [address],[address], [address], [facility] 04/26/2023 10:59:31 COVID-19, mRNA, LNP-S, PF, 50 mcg/0.5 mL 4 completed Not Available [facility] 12/26/2024 13:30:47 COVID-19, mRNA, LNP-S, PF, 50 mcg/0.5 mL 4 completed [facility] 12/26/2024 13:30:47 Influenza, adjuvanted, trivalent, PF 4 completed Not Available [facility] 12/26/2024 13:30:47 COVID-19, mRNA, LNP-S, PF, 50 mcg/0.5 mL 5 completed [facility] 12/26/2024 13:30:47 IPV [address] [facility] 01/25/2023 09:28:19 Influenza, adjuvanted, trivalent, PF [address] [facility] 01/25/2023 09:28:19 Influenza, adjuvanted, trivalent, PF 9 completed Susana Allar null, [facility] 01/25/2023 09:28:19 Influenza, adjuvanted, trivalent, PF 8 completed Susana Allar null, [facility] 01/25/2023 09:28:19 zoster recombinant 0 completed [facility], [facility] 01/25/20[facility] 09:28:19 zoster recombinant 9 completed Susana Allar null, [facility] 01/25/2023 09:28:19 Influenza, adjuvanted, quadrivalent, PF 0 completed Susana Allar null, [facility] 01/25/2023 09:28:19 Influenza, adjuvanted, quadrivalent, PF 2 completed Susana Allar null, [facility] 01/25/2023 09:28:19 Influenza, adjuvanted, quadrivalent, PF 1 [...] Clinic 01/25/2023 09:28:19 Pneumococcal conjugate PCV20, polysaccharide [id number] conjugate, adjuvant, PF 3 completed Susana Allar null, [facility] 01/25/2023 09:28:19 COVID-19, mRNA, LNP-S, PF, 30 mcg/0.3 mL dose, octavia-sucrose 2 completed Susana Allar null, [facility] 01/25/2023 09:28:19 COVID-19, mRNA, LNP-S, bivalent, PF, 50 mcg/0.5 mL or 25mcg/0.25 mL dose 3 completed Susana Allar null, [facility] 01/25/2023 09:28:19 COVID-19, mRNA, LNP-S, bivalent, PF, 50 mcg/0.5 mL or 25mcg/0.25 mL dose 2 completed Susana Allar null, [facility] 01/25/2023 09:28:19 pneumococcal polysaccharide PPV23 6 completed Susana Allar null, [facility] 01/25/2023 09:28:19 pneumococcal polysaccharide PPV23 6 completed Sus[facility] Allar null, [facility] 01/25/2023 09:28:19 Tdap 1 completed Susana Allar null, [facility] 01/25/2023 09:28:19 Tdap 1 completed Susana Allar null, [facility] 01/25/2023 09:28:19 Pneumococcal conjugate PCV 13 5 completed Susana Allar null, [facility] 01/25/2023 09:28:19 yellow fever live 2 completed Susana Allar null, [facility] 01/25/2023 09:28:19 yellow fever live 1 completed Susana Allar null, [facility] 01/25/2023 09:28:19 zoster live 7 completed Susana Allar null, [facility] 01/25/2023 09:28:19 Influenza, high-dose, trivalent, PF 4 completed Susana Allar null, [facility] 01/25/2023 09:28:19 Influenza, high-dose, trivalent, PF 6 completed Susana Allar null, [facility] 01/25/2023 09:28:19 Influenza, high-dose, trivalent, PF 5 completed Susana Allar null, [facility] 01/25/2023 09:28:19 Influenza, split virus, trivalent, preservative 2 completed Susana Allar null, [facility] 01/25/2023 09:28:19 Influenza, split virus, trivalent, preservative 1 completed Sus[facility] Allar null, [facility] 01/25/2023 09:28:19 Influenza, split virus, trivalent, preservative 6 completed Susana Allar null, [facility] 01/25/2023 09:28:19 Influenza, split virus, trivalent, preservative 4 completed Susana Allar null, [facility] 01/25/2023 09:28:19 Influenza, split virus, trivalent, preservative 3 completed Susana Allar null, [facility] 01/25/2023 09:28:19 Influenza, split virus, trivalent, preservative 0 completed Susana Allar null, [facility] 01/25/2023 09:28:19 Influenza, split virus, trivalent, preservative 7 completed Susana Allar null, [facility] 01/25/2023 09:28:19 Influenza, split virus, trivalent, preservative 5 completed Susana Allar null, [facility] 01/25/2023 09:28:19 Td (adult), 5 Lf tetanus toxoid, preservative free, adsorbed 5 completed Susana Allar null, [facility] 01/25/2023 09:28:19 typhoid, ViCPs 2 completed Susana Allar null, [facility] 01/25/2023 09:28:19 typhoid, ViCPs 1 completed Susana Allar null, [facility] 01/25/2023 09:28:19 Hep A-Hep B 2 completed Susana Allar null, [facility] 01/25/2023 09:28:19 Hep A-Hep B 2 completed Susana Guallpalulu walter, NATALIE - [facility] 01/25/2023 09:28:19 Hep A-Hep B 2 completed Susana Guallpalulu walter, NATALIE - [facility] 01/25/2023 09:28:19 Past Encounters Encounter ID Performer Location Encounter Start Date Encounter Closed Date Diagnosis/Indication Diagnosis SNOMED-CT Code Diagnosis ICD10 Code Diagnosis IMO Codes Diagnosis Note [id number] ANTOINE RAMOS PA-C [facility] [address] [place] [address] 11/10/2024 10:42:48 11/17/2024 15:53:02 Urinary symptoms 958484656 R39.9 [id number] Louis Cook MD [facility] [address] [place] [address] 12/05/2024 12:10:36 12/07/2024 11:21:36 Malignant neoplasm of prostate [id number] C61 1. Prostate cancer- cT1c - [place] 3+3 = 6 - on expectant management - PSA (13.7) - increased - has fluctuated over the years- Follow-up in 3 months with PSA(if PSA increases significan t - check Prostate MRI and recommend TRUS bx Increased frequency of urination 963919145 R35.0 2. Urinary frequency- he is off Lasix- incomplete emptying (188 mL)- stop Gemtesa 75 mg daily Lower urin robbin tract symptoms due to benign prostatic hypertrophy 2482837183 9101 N40.1 4. BPH- high PVR = 188 mL- continue Flomax 0.4 mg daily- add Cialis 5 mg daily- check Bladder scan at Follow-up Microscopic hematuria 19 9707084 R31.29 [id number] 3. Microscopi c hematuria- check CT Urogram- will need Cystoscopy in near future Health Concerns Section Related Observation LastModified by Organization Detai ls LastModified Time None Recorded Concern Status LastModified by Organization Details LastModified Time None Recorded Payers Encounter Date Sequence Insurance Name Policy Number Policy Sam Covered Member ID Sam Member ID Guarantor Name 12/05/2024 1 [place] ([place]) [id number] Enrike [id number] Enrike Coleman Notes Date Note Type Note Provider Name and Address Organization Details Recorded Time 12/05/2024 text/html 84 yo male with history of A.fib (on Eliquis), HTN, DM, memory loss, PMR, BPH, and Prostate cancer - T1c - [place] 3+3 = 6 - involving 1/10 cores (< 5%) on Left - TRUS bx (12/15/12) by Dr. Herrera - on expectant management. Prostate MRI (2014) revealed a PI-RADS 2 lesion - underwent MRI bx (10/31/14) of lesion at [facility] - benign. No family H/O prostate cancer.He [...] during the day and 1-2x/night. 09/25/24 [facility] - He presents for worsening urge incontinence. [...] 11.80 (09/15/22)- 9.08 (04/16/23) Louis Cook MD [address] [facility] [address], [place], [address], [facility] 12/05/2024 13:50:09
--- OUTSIDE RECORDS SUMMARY | 2025-01-08 12:56 | XMS_ITS | Clinical Summary ---
Author Organization [facility] Address [address] [place] [address] Care Team Providers Care Crusher Tender Name Role Phone Pardeep Baird [facility] Unavailable + Rocael Gamez Unavailable Bari Toscano MD Primary Care Provider Hudson Valle MD Unavailable [phone] Allergies No known active allergies Medications lancets [...] TWO WEEKS.Back on 5 MG, Reported on 01/08/2025 vibegron (GEMTESA) 75 mg tabletIndication s:OAB (overactive bladder) Take 1 Tablet (75 mg) by mouth once daily. Swallow tablet whole. May be crushed and mixed in applesauce. Follow with glass of water. 11/22/19 Active metFORMIN (GLUCOPHAGE XR) 500 mg Extended-Release [...] mg Oral DAILY,Unsure of dose, Reported on 01/08/2025 blood sugar diagnostic (True Metrix Glucose Test Strip) stripIndications :Type 2 diabetes mellitus without complication, without long-term current use of insulin (HC) TEST 2 TIMES PER WEEK. 50 Each 3 11/25/19 Active cephalexin 500 mg capsule Take 1 Capsule by mouth every 6 hours. 01/06/20 025 Active glipiZIDE extended-release (GLUCOTROL XL) 10 mg Extended-Release tabletIndication s:Type 2 diabetes mellitus without complication, without long-term current use of insulin (HC) Take 1 Tablet (10 mg) by mouth once daily before a meal. 01/09/20 25 Active potassium chloride (KLOR-CON M20) 20 [...] complete/ Regimen complete/ Level of care change) glipiZIDE extended-release (GLUCOTROL XL) 10 mg Extended-Release tabletIndication s:Type 2 diabetes mellitus without complication, without long-term current use of insulin (HC) Take 2 Tablets (20 mg) by mouth once daily before a meal. 180 Tablet 1 11/23/19 25 025 Discontin ued(*Medi cation adjustmen t) tadalafiL (CIALIS) 5 mg tablet Take 5 mg by mouth once daily. 12/06/19 25 025 Discontin ued(*Med complete/ Regimen complete/ [...] 04/21/2022 03/27/2022 Atrial fibrillation (HC) ER 01/28/2022 2 Mobitz (type) I (Wenckebach' s) atrioventricular block; [...] Encounters Date Type Department Care Team Description 01/08/2025 11:20 AM BIBLE TEACHER Office Visit [facility] [address] [place] [address] Bari Toscano MD Preoperative Exam (DOS: 01/12/2025, CYSTOSCOPY BIOPSY BLADDER, Dr. Cook, ANW/DOS: 01/23/2025 and 2025, cataract, Dr. Naik, [facility]); Hospital F/U ([facility], 12/28/2024 - 01/02/2025, septic UTI); ER Follow up ([facility], 01/05/2025, fungal infection around catheter ) 01/08/2025 Travel 01/02/2025 Nurse Triage [facility] [address] [place] [address] Bari Toscano MD Urinary Problem 12/31/2024 Orders Only [facility] Scanner 1 scan: (1-Ord) [facility], XR CHEST 1V PORTABLE , 12/31/2024 12/29/2024 4:00 PM CDT Ancillary Procedure [facility] [address] [place] [address] 12/28/2024 Orders Only [facility] Scanner 1 scan: (1-Ord) [facility], CHEST ABDOMEN PELV W/ CONTRAST, 12/28/2024 12/28/2024 Orders Only [facility] Scanner 1 scan: (1-Ord) [facility], XR CHEST 1V PORTABLE , 12/28/2024 12/26/2024 Orders Only [facility] Scanner 1 scan: (1-Ord) [facility], CYSTOSCOPY, 12/26/2024 12/12/2024 9:10 AM CDT Ancillary Procedure [facility] [address] [place] [address] 12/12/2024 8:15 AM CDT Orders Only [facility] [address] [place] [address] Lab, [place] <No scans attached> 12/11/2024 9:00 AM CDT Office Visit [facility] [id number] [place] [address] [address] [place] [address] Melanie Garcia PA Follow Up (6 month F/U-HFrEF (heart failure [...] Travel 12/05/2024 Transcribe Orders [facility] [place] [phone] Louis Cook MD 11/22/2024 Refill [facility] [address] [place] [address] Bari Toscano MD Refill Request (True Metrix Glucose Test Strip) 11/22/2024 Orders Only [address] [address] Bari Toscano MD <No scans attached> 11/21/2024 8:25 AM CDT Office Visit [address] [address] Bari Toscano MD Follow Up 11/21/2024 Refill [facility] [address] [place] [address] Bari Toscano MD Refill Request (Metformin, Glipizide Extended-release) 11/20/2024 4:00 PM CDT Office Visit [address] [address] Erik Hahn MD Follow Up (excisional debridement of unhealing traumatic scalp laceration) 11/20/2024 Travel 11/16/2024 Orders Only [facility] Scanner 1 scan: (1-Ord) [facility] 11/16/2024 Refill [facility] [address] [place] [address] Bari Toscano MD Refill Request (Metformin, Jardiance) 11/14/2024 Refill [facility] [address] [place] [address] Bari Toscano MD Refill Request (Glipizide Extended-release) 11/09/2024 Telephone [facility] [address] [place] [address] Sheldon Enriquez RN 11/06/2024 3:15 PM CDT Office Visit [facility] [address] [place] [address] Erik Hahn MD Follow Up (Excisional debridement of left posterior scalp and right mid thigh abscess 10/25/24) 11/06/2024 Travel 10/24/2024 Transcribe Orders [facility] [place] [phone] America Lim PA-C 10/23/2024 12:30 PM CDT Office Visit [facility] [address] [place] [address] Erik Hahn MD Consult (Head injury --check head injury -laceration DOI-10/02/24/Also was seen in ED for cellulitis right thigh) 10/23/2024 Travel 10/18/2024 1:40 PM CDT Office Visit [facility] [address] [place] [address] Bari Toscano MD Follow Up (Head injury) 10/18/2024 Travel 10/11/2024 10:55 AM CDT Office Visit [facility] [address] [place] [address] Bari Toscano MD ER Follow up (10/02/2024, [facility] ER, fall with head laceration) 10/11/2024 Travel from Last 3 Months Immunizations Immunization [...] you have a drink containing alcohol ? 0 01/08/2025 How many drinks containing a lcohol do you have on a typical day when you are drinking? 0 01/08/2025 How often do you have five or more drinks on one occasion? 0 01/08/2025 Financial Resource Strain Answer Date R ecorded [...] on file Legal Sex Male 5:25 AM BIBLE TEACHER Gender Identity Not on file Sexual Orientation Not on file Obstetrics History Last Filed Vital Signs Vital Sign Reading Time Taken Comments Blood Pressure 104/60 01/08/2025 11:58 AM BIBLE TEACHER Pulse 71 01/08/2025 11:15 AM BIBLE TEACHER Temperature 36.5 C (97.7 F) 10/23/2024 12:25 PM CDT Respiratory Rate 20 04/13/2024 3:00 PM BIBLE TEACHER Oxygen Saturation 99% 01/08/2025 11:15 AM BIBLE TEACHER Inhaled Oxygen Concentration - - Weight 83.6 kg (184 lb 6.4 oz) 01/08/2025 11:15 AM BIBLE TEACHER Height 170.2 cm (5' 7) 01/08/2025 11:15 AM BIBLE TEACHER Body Mass Index 28.88 01/08/2025 11:15 AM BIBLE TEACHER Plan of Treatment Upcoming Encounters Date Type Department Care Team (Late st Contact Info) Description 01/12/2025 1:51 PM BIBLE TEACHER Hospital Encounter [facility] [address] [place] [address] Louis Cook MD [address] [place] [address] 01/12/2025 1:51 PM BIBLE TEACHER - 01/12/2025 2:54 PM BIBLE TEACHER Surgery [facility] [address] [place] [address] Louis Cook MD [address] [place] [address] Cystoscopy 02/06/2025 1:00 PM BIBLE TEACHER Cardiac Device Check [facility] [address] [place] [phone] Scheduled Procedures Name Priority Associated Diagnoses Date/Ti me CYSTOSCOPY Tier 2: within 30 days R31.29 Other microscopic hematuria 01/12/2025 1:51 PM BIBLE TEACHER CYSTOSCOPY BIOPSY hostess 2: within 30 days R31.29 Other microscopic hematuria 01/12/2025 1:51 PM BIBLE TEACHER Health Maintenance Due Date Last Done Comments Influenza Vaccine (#1) 2024 4, 11/10/2021, 12/09/2020, Additional history exists Medicare Wellness for age 65+ 06/03/2025, 06/09/2023, 06/12/2022, Additional history exists Depression screening for age 12+ 06/05/2025 06/05/2024, 06/05/2024, 06/05/2024, Additional history exists BMI (ht and wt on same day) for age 18+ 01/08/2026 01/08/2025, 12/11/2024, 06/15/2024, Additional history exists Tetanus booster 06/11/2030 06/11/2020, 04/29, 10/22/2006, Additional history exists Hepatitis B series for 19+ Completed 10/24, 06/21/2001, 05/20/2001 Zoster (shingles) series for age 50+ Completed 03/06/2019, 12/14/2018, 11/17/2006 Pneumococcal series for age 50+ Completed 03/27/2022, 09/21/2014, 12/03/2005, Additional history exists RSV vaccine for adults or Completed 01/19/2023 Medical Devices Implanted Type Area Watch Leader Device Identifier Shelf Expiration Date Model / Serial / Lot Occluder Meghan 40mm Atriclip Flex V Exclusion Sys - [id number] Implanted:Qty: 1 on 03/10/2024 by Tonja Redman MD at [facility] N/A: Heart [employer] 12/30/2024 [id number] / / [id number] Description:[employer] AtriCli p . SIZE: 40MM. REF: [id number]. LOT: [id number]. Implanted on 03/10/[address] [facility]. Procedures Procedure Name Priority Date/Time Associated [...] Tech: TASIA Referring MD: LONNIE MARIE Site: [facility] Reading Location: MOBILE IP Patient [...] documentation: 3cc ml diluted Definity, lot #[id number], [facility]# [id number] was administered peripherally to enhance visualization of all left ventricular segments. . This study was interpreted by an IAC accredited facility. CC: HIM (med records) [facility], Med/Surg - IP [facility]. Final Procedure Note Ubaldo Fontenot MD - 12/29/2024 ECHOCARDIOGRAM MAC YARBROUGH : 1940 84 years Study Date: 12/29/2024 2:54:44 PM Gender: M BP: 122/66 mmHg Height: 170.00 cm BSA: 1.98 m Weight: 87.00 kg Tech: TASIA Referring MD: LONNIE MARIE Site: [facility] Reading Location: MOBILE IP Patient [...] documentation: 3cc ml diluted Definity, lot #[id number], [facility]#[id number] was administered peripherally to enhance visualization of allleft ventricular segments. . This study was interpreted by an IAC accredited facility. CC: HIM (med records) [facility], Med/Surg - IP [facility]. Final us Lonnie GIL ECHO ORD Final [...] - 1.3 mg/dL 12/12/2024 9:30 AM CDT [facility] Blood BLOOD SPECIMEN / Unknown [facility] / Unknown 12/12/2024 9:17 AM CDT 12/12/2024 9:17 AM CDT Louis Cook MD CHEMISTRY Final Resu lt [facility] [address] [place] [address], [place] [phone] [facility] [address] [place] [address], [place] [phone] * (ABNORMAL) URINE ALBUMIN TO CREATININE RATIO, RANDOM (11/21/2024 9:50 AM CDT) ALB RAND URINE 351.0 mg/L 11/21/2024 6:24 PM CDT [facility] CREATININE,URIN E 0.59 g/L 11/21/2024 6:24 PM CDT [facility] ALBUMIN TO CREATININE RATIO,RAND UR 594.9(H) <30.0 mg/g creat 11/21/2024 6:24 PM CDT [facility] Urine URINE SPECIMEN / Unknown Non-Blood / Unknown 11/21/2024 9:50 AM CDT 11/21/2024 10:37 AM CDT Narrative [facility] - 11/21/2024 6:24 PM CDT If Albumin to Creatinine Ratio is elevated, consider the following: Elevations seen with incipient nephropathy associated with diabetes mellitus or hypertension. Stress, exercise,hematuria, and urinary tract infection may also produce elevated results. If clinically indicated, confirm with 24 Hour Albumin to Creatinine Ratio. Bari Toscano MD URINE Final Result [facility] [address] [place] [address], * METHYLMALONIC ACID BLOOD (11/21/2024 9:29 AM CDT) METHYLMALONIC ACID 98 85 - 423 nmol/L 11/22/2024 5:45 PM CDT [facility] Comment: See Note 1 Serum methylmalonic acid [...] neural tube defects and intrauterine growth restriction. [facility] utilized Multi-Modal Decomposition (MMD) analysis to establish first and second trimester-specific MMA reference intervals in , as given below: MMA, First trimester (<13 wks gestation): 58-167 nmol/L MMA, Second trimester (13-23 wks gestation): 63-241 nmol/L Note 1 This test was developed and its analytical performance characteristics have been determined by [facility]. It has not been cleared or approved by the FDA. This assay has been validated pursuant to the CLIA regulations and is used for clinical purposes. Blood BLOOD SPECIMEN / Unknown [facility] / Unknown 11/21/2024 9:29 AM CDT 11/21/2024 9:29 AM CDT Bari Toscano MD SEND OUTS Final Result Performing Organization Address [facility]/ZIP Co de Phone Number [facility] [address] [address], [place] [phone] * (ABNORMAL) HEMOGLOBIN A1C MONITORING (POCT) (11/21/2024 9:29 AM CDT) Pathologist [facility] POC HEMOGLOBIN A1C 8.3(H) <6.0 % OF TOTAL HGB 11/21/2024 10:02 AM CDT [facility] Comment: Any point of care results exhibiting inconsistency with the patient's clinical status should be repeated using a different testing method. Blood BLOOD SPECIMEN / Unknown [facility] / Unknown 11/21/2024 9:29 AM CDT 11/21/2024 9:29 AM CDT Bari Toscano MD CHEMISTRY Final Result Performing Organization Address City/[facility]/ZIP Co de Phone Number [facility] [address] [address], [place] [phone] [address], [place] [phone] * VITAMIN B12 (11/21/2024 8:12 AM CDT) VITAMIN B12 658 200 - 1100 pg/mL 11/22/2024 6:04 AM CDT [facility] Blood BLOOD SPECIMEN / Unknown [facility] / Unknown 11/21/2024 8:12 AM CDT 11/21/2024 8:12 AM CDT us Bari Toscano MD CHEMISTRY Final Result [facility] [address] [place] [address], [place] [phone] * SCAN-ELECTROENCEPHALOGRAM EEG INTERP (11/16/2024 12:00 AM CDT) us Scanner OTHER Final Result from Last 3 Months Insurance * Guarantor: Mac Yarbrough Account Type Relation to Patient Date of Phone Billing Address Personal/Family Self 1940 [address] [place] [address] MEDICARE PART A HB ONLY BLUE CROSS MEDICARE ADVANTAGE Advance Directives Documents on File Type Date Recorded Patient Office Clerk Routine Expl anation Healthcare Directive 02/10/2024 INVALID , [place]ISS[place] PAGE, 02/10/2024 Power of Director Of Instruction 10/19/1996 DURABLE PO WER OF NON EMERGENCY SERVICES AMBULANCE DRIVER FOR HEALTH CARE, [facility], 10/19/1996 Power of Director Of Instruction 10/19/1996 STATUTORY SHORT FORM POWER OF NON EMERGENCY SERVICES AMBULANCE DRIVER, [facility], 10/19/1996 Healthcare Directive 03/04/1993 HEALTH CARE DECLARATION, [facility], 03/04/1993 * Full Code (Latest Code [...] 7:00 PM 04/07/2012 3:58 PM Care Teams Crusher Tender Relationship Specialty Start Date End Date Bari Toscano MD [address] [place] [address] PCP - General Family Practice 08/14/13 Pardeep Baird [facility] Surgery - Orthopedics 09/09/12 Rocael Gamez [address] [place] [address] Ophthalmology Surgery 09/09/12 [place] [address] [place] [address] Rheumatology 03/07/24
--- OUTSIDE RECORDS SUMMARY | 2025-01-08 12:56 | XMS_ITS | Clinical Summary ---
Author Organization [facility] Address [address], [place] [address] Care Team Providers Care Hot Knife Foxing Cutter Name Role Phone Unavailable Primary Care Provider [...] for each transition of care or referral. [facility] Allergies No known active allergies [...]
--- OUTSIDE RECORDS SUMMARY | 2025-01-08 12:56 | XMS_ITS | Data Portability ---
Author Organization [place] [facility] Address [address] [place] [address] Care Team Providers Care Corporate Accounting Manager Name Role Phone LINDSAY SANFORD Referring Provider [...] [email or web address] ro [facility], [address], [place], [address], 12/26/2024 14:05:06 cultur e, urine 2024 025 [facility], [address], [place], [address], 12/30/2024 11:19:27 PSA, serum or plasma 2024 025 [email or web address] ro [facility], [address], [place], [address], 12/05/2024 12:15:11 PSA, total, serum or plasma 2024 025 [email or web address] [facility], [address], [place], [address], 12/05/2024 13:23:25 urinal ysis, dipsti ck 2024 025 [email or web address] [facility], [address], [place], [address], 11/10/2024 11:19:26 cultur e, urine 2024 025 [facility], [address], [address], [place], [address], 11/11/2024 10:45:08 cultur e, urine 2024 025 [facility], [address] [facility], [address], [place], [address], 09/28/2024 11:28:22 PSA, serum or plasma 2024 025 [facility], [address], [place], [address], 05/30/2024 13:17:58 PSA, total, serum or plasma 2024 025 [email or web address] [facility], [address] [facility], [place], [address], 05/30/2024 14:27:38 Referral None record ed. Procedures None record ed. Surgeries cystos copy (SURG) 2024 [email or web address] Not available 12/28/2024 11:47:[address], urogra m - PLEASE CALL PT TO AMALIAU MADALYN 2024 025 [facility], [address] [facility], [place], [address], 12/13/2024 11:02:23 Medication Orders tadala maureen 5 mg tablet 2024 025 [facility], [address] [facility], [place], [address], 12/05/2024 14:50:32 Patient TargetsNo targets recorded. Patient InstructionsNo instructions recorded. Reason for Referral None Reported. Results Created Date Observation Date Name Description Value Unit Range Abnormal Flag Note LastModifiedBy Organization Detail LastModifiedTime 05/31/1905/30/2024 PSA, serum or plasm a PSA 10.3 0-4.0 NG/mL Not Available [facility] [address], [place], [address], 05/30/2024 12:41:42 09/26/1909/25/2024 URINE CULTU RE final [...] for provi gricelda revie w. Not Available [facility] [address] [facility] [address], [place], [address], 09/28/2024 11:28:22 11/11/19 25 11/10/2024 URINE CULTU [...] for provi gricelda revie w. Not Available [facility] [address], [place], [address], 11/11/2024 10:45:08 11/11/19 25 11/10/2024 urina lysis , dipst ick BLOOD Large (250 RBC/uL ) Not Available [facility] [address], [place], [address], 11/10/2024 11:17:20 11/11/19 25 11/10/2024 urina lysis , dipst ick NITRITES Negati ve Not Available [facility] [address], [place], [address], 11/10/2024 11:17:20 11/11/19 25 11/10/2024 urina lysis , dipst ick LEUKOCYTES Small (25 WBC/uL ) Not Available [facility] [address], [place], [address], 11/10/2024 11:17:20 12/06/19 25 12/05/2024 PSA, serum or plasm a PSA 13.7ng /mL 0-4.0 NG/mL Not Available [facility] [address], [place], [address], 11/22/2024 15:45:12 12/27/19 25 12/26/2024 URINE CULTU [...] for provi gricelda revie w. Not Available [facility] [address], [place], [address], 12/30/2024 11:19:27 12/27/1912/26/2024 urina lysis , dipst ick BLOOD Large (250 RBC/uL ) Not Available [facility] [address], [place], [address], 12/26/2024 14:04:23 12/27/19 25 12/26/2024 urina lysis , dipst ick BILIRUBIN Negati ve Not Available [facility] [address], [place], [address], 12/26/2024 14:04:23 12/27/1912/26/2024 urina lysis , dipst ick UROBILINOGEN 0.2 mg/dL (Norm) Not Available [facility] [address], [place], [address], 12/26/2024 14:04:23 12/27/1912/26/2024 urina lysis , dipst ick KETONES Negati ve Not Available [facility] [address], [place], [address], 12/26/2024 14:04:23 12/27/19 25 12/26/2024 urina lysis , dipst ick PROTEIN 100 mg/dL Not Available [facility] [address], [place], [address], 12/26/2024 14:04:23 12/27/1912/26/2024 urina lysis , dipst ick NITRITES Negati ve Not Available [facility] [address], [place], [address], 12/26/2024 14:04:23 12/27/1912/26/2024 urina lysis , dipst ick GLUCOSE >2000 mg/dL Not Available [facility] [address], [place], [address], 12/26/2024 14:04:23 12/27/1912/26/2024 urina lysis , dipst ick p.H. 5.0 Not Available [facility] [address], [place], [address], 12/26/2024 14:04:23 12/27/1912/26/2024 urina lysis , dipst ick S.G. (Specific [place]) 1.025 Not Available [facility] [address], [place], [address], 12/26/2024 14:04:23 12/27/1912/26/2024 urina lysis , dipst ick LEUKOCYTES Small (25 WBC/uL ) Not Available [facility] [address], [place], [address], 12/26/2024 14:04:23 12/14/1912/12/2024 CT, urogr am No observ ation record ed. OLYA Louis [facility] [address], [place], [address], 12/18/2024 14:28:50 Result Notes None recorded. Procedures Surgical History Date Name Laterality Status Provider Name and Address Organization Details Recorded Time 5 Cystoscopy- male completed Louis Cook MD [address] [facility],[address], [place], [address], [facility] 12/26/2024 19:09:00 5 Keflex post Cysto completed Carlos Enrique Barnes-Cande terrie [facility] 12/26/2024 13:31:05 5 Urinalysis completed Carlos Enrique Faganal-[place] ro [facility] 12/26/2024 13:30:59 5 TOOL DRESSER/blood draw completed Carlos Enrique Faganal-[place] ro [facility] 12/05/2024 12:14:49 5 Bladder Scan completed Louis Cook MD [address] [facility],[address], [place], [address], [facility] 12/05/2024 12:32:40 5 Urine Culture completed Meli Rowan [facility] 11/10/2024 11:16:59 5 Urinalysis completed Meli Rowan [facility] 11/10/2024 11:16:57 5 Urine Culture completed Anastasiia Ingram [facility] 09/25/2024 12:27:34 5 Urinalysis completed Anastasiia Ingram [facility] 09/25/2024 11:46:34 5 Bladder Scan completed Anastasiia Ingram [facility] 09/25/2024 11:46:26 5 Blood Draw/TOOL DRESSER/PSA RESULTS completed Louis Cook MD [address] [facility],[address], [place], [address], [facility] 05/30/2024 12:41:37 4 Blood Draw/TOOL DRESSER/PSA RESULTS completed Carlos Enrique falcon [facility] 10/11/2023 10:18:27 3 Heart Surgery completed Louis Cook MD [address] [facility],[address], [place], [address], [facility] 09/28/2022 16:37:35 procedure on spine completed Louis Cook MD [address] [facility],[address], [place], [address], [facility] 09/28/2022 16:37:23 Imaging Results None recorded. [...] Updated DateTime 05/30/2024 175.26 cm 31 kg/m2 26773.4 g Louis Cook MD [address] [facility],[address], [address], [place] [facility] 05/30/2024 12:38:02 Date Recorded Body height Body mass index (BMI) Body weight Provider Name and Address Organization Details Last Updated DateTime 09/25/2024 175.26 cm 31 kg/m2 77756.4 g Anastasiia Ingram [facility] 09/25/2024 11:45:48 Date Recorded Body height Body mass index (BMI) Body weight Provider Name and Address Organization Details Last Updated DateTime 12/05/2024 175.26 cm 31 kg/m2 22675.4 g Louis Cook MD [address] [place] [address],[address], [address] 12/05/2024 12:32:21 Social History Question Answer Notes LastModified by Organizat [employer] Details LastModified Time Tobacco Smoking Status Former Smoker Louis Cook MD [address] [place] [address],[address], [address] 09/28/2022 16:37:00 What Is Your Level [...] Status Question Answer Note LastModified by Organizat [employer] Details LastModified Time How many times per [...] quadrivalent, PF 3 completed Louis Cook MD [address] [place] [address],[address], [address], [facility] 04/26/2023 10:59:30 RSV, recombinant, protein subunit RSVpreF, adjuvant reconstituted, 0.5 mL, PF 3 completed Louis Cook MD [address] [place] [address],[place] [address], [place], [address], [facility] 04/26/2023 10:59:31 COVID-19, mRNA, LNP-S, PF, 50 mcg/0.5 mL 3 completed Louis Cook MD [address] [place] [address],[place] [address], [place], [address], [facility] 04/26/2023 10:59:31 COVID-19, mRNA, LNP-S, PF, 50 mcg/0.5 mL 4 completed Not Available [facility] 12/26/2024 13:30:47 COVID-19, mRNA, LNP-S, PF, 50 mcg/0.5 mL 4 completed Not Available [facility] 12/26/2024 13:30:47 Influenza, adjuvanted, trivalent, PF 4 completed Not Available [facility] 12/26/2024 13:30:47 COVID-19, mRNA, LNP-S, PF, 50 mcg/0.5 mL 5 completed Not Available [facility] 12/26/2024 13:30:47 IPV 2 completed Susana watson, [facility] 01/25/2023 09:28:19 Influenza, adjuvanted, trivalent, PF 7 completed Susana watson, [facility] 01/25/2023 09:28:19 Influenza, adjuvanted, trivalent, PF 9 completed Susana Allar null, [facility] 01/25/2023 09:28:19 Influenza, adjuvanted, trivalent, PF 8 completed Susana Allar null, [facility] 01/25/2023 09:28:19 zoster recombinant 0 completed Susana Allar null, [facility] 01/25/2023 09:28:19 zoster recombinant 9 completed Susana Allar null, [facility] 01/25/2023 09:28:19 Influenza, adjuvanted, quadrivalent, PF 0 completed Susana Allar null, [facility] 01/25/2023 09:28:19 Influenza, adjuvanted, quadrivalent, PF 2 completed Susana Allar null, [facility] 01/25/2023 09:28:19 Influenza, adjuvanted, quadrivalent, PF 1 completed Susana Allar null, [facility] 01/25/2023 09:28:19 COVID-19, mRNA, LNP-S, PF, 100 mcg/0.5mL dose or 50 mcg/0.25mL dose 1 completed Susana Allar null, [facility] 01/25/2023 09:28:19 COVID-19, mRNA, LNP-S, PF, 100 mcg/0.5mL dose or 50 mcg/0.25mL dose 1 completed Susana Allar null, [facility] 01/25/2023 09:28:19 COVID-19, mRNA, LNP-S, PF, 100 mcg/0.5mL dose or 50 mcg/0.25mL dose 1 completed Susana Allar null, [facility] 01/25/2023 09:28:19 Pneumococcal conjugate PCV20, polysaccharide [id number] conjugate, adjuvant, PF 3 completed Susana Allar null, [facility] 01/25/2023 09:28:19 COVID-19, mRNA, LNP-S, PF, 30 mcg/0.3 mL dose, octavia-sucrose 2 completed Susana Allar null, [facility] 01/25/2023 09:28:19 COVID-19, mRNA, LNP-S, bivalent, PF, 50 mcg/0.5 mL or 25mcg/0.25 mL dose 3 completed Susana Allar null, [facility] 01/25/2023 09:28:19 COVID-19, mRNA, LNP-S, bivalent, PF, 50 mcg/0.5 mL or 25mcg/0.25 mL dose 2 completed Susana Allar null, [facility] 01/25/2023 09:28:19 pneumococcal polysaccharide PPV23 6 completed Susana Allar null, [facility] 01/25/2023 09:28:19 pneumococcal polysaccharide PPV23 6 completed Susana Allar null, [facility] 01/25/2023 09:28:19 Tdap 1 completed Susana Allar null, [facility] 01/25/2023 09:28:19 Tdap 1 completed Susana Allar null, [facility] 01/25/2023 09:28:19 Pneumococcal conjugate PCV 13 5 completed Susana Allar null, [facility] 01/25/2023 09:28:19 yellow fever live 2 completed Susana Allar null, [facility] 01/25/2023 09:28:19 yellow fever live 1 completed Susana Allar null, [facility] 01/25/2023 09:28:19 zoster live 7 completed Susana Allar null, [facility] 01/25/2023 09:28:19 Influenza, high-dose, trivalent, PF 4 completed Susana Allar null, [facility] 01/25/2023 09:28:19 Influenza, high-dose, trivalent, PF 6 completed Susana Allar null, [facility] 01/25/2023 09:28:19 Influenza, high-dose, trivalent, PF 5 completed Susana Allar null, [facility] 01/25/2023 09:28:19 Influenza, split virus, trivalent, preservative 2 completed Susana Allar null, [facility] 01/25/2023 09:28:19 Influenza, split virus, trivalent, preservative 1 completed Susana Allar null, [facility] 01/25/2023 09:28:19 Influenza, split virus, trivalent, preservative 6 completed Susana Allar null, [facility] 01/25/2023 09:28:19 Influenza, split virus, trivalent, preservative 4 completed Susana Allar null, [facility] 01/25/2023 09:28:19 Influenza, split virus, trivalent, preservative 3 completed Susana Allar null, [facility] 01/25/2023 09:28:19 Influenza, split virus, trivalent, preservative 0 completed Susana Allar null, [facility] 01/25/2023 09:28:19 Influenza, split virus, trivalent, preservative 7 completed Susana Allar null, [facility] 01/25/2023 09:28:19 Influenza, split virus, trivalent, preservative 5 completed Susana Allar null, [facility] 01/25/2023 09:28:19 Td (adult), 5 Lf tetanus toxoid, preservative free, adsorbed 5 completed Susana Allar null, [facility] 01/25/2023 09:28:19 typhoid, ViCPs 2 completed Susana Allar null, [facility] 01/25/2023 09:28:19 typhoid, ViCPs 1 completed Susana Allar null, [facility] 01/25/2023 09:28:19 Hep A-Hep B 2 completed Susana Allar null, [facility] 01/25/2023 09:28:19 Hep A-Hep B 2 completed Susana Allar null, [place] [facility] 01/25/2023 09:28:19 Hep A-Hep B 2 completed NATALIE [place] - [facility] 01/25/2023 09:28:19 Past Encounters Encounter ID Performer Location Encounter Start Date Encounter Closed Date Diagnosis/Indication Diagnosis SNOMED-CT Code Diagnosis ICD10 Code Diagnosis IMO Codes Diagnosis Note [id number] MD LUIS ANGEL Madrigal[address] [place], [place] [address] 09/28/2022 16:22:42 10/02/2022 13:32:27 Malignant neoplasm of prostate 448591097 C61 1. Prostate cancer- cT1c - [place] 3+3 = 6 - on expectant management - PSA increased (11.80) - has fluctuated over the years- recheck PSA in November ([facility])- if PSA increases - check Prostate MRI and recommend TRUS bx Lower urin robbin tract symptoms due to benign prostatic hypertrophy 4233456010 9101 N40.1 2. BPH- voiding okay- continue Flomax 0.4 mg daily [id number] MD [place] [address] 04/26/2023 10:54:45 04/26/2023 12:03:27 Malignant neoplasm of prostate [id number] C61 1. Prostate cancer- cT1c - [place] 3+3 = 6 - on expectant management - PSA (9.08) - decreased has fluctuated over the years- recheck PSA in September ([facility])(if PSA increases significan t - check Prostate MRI and recommend TRUS bx Lower urin robbin tract symptoms due to benign prostatic hypertrophy 3137094526 9101 N40.1 2. BPH- voiding okay- continue Flomax 0.4 mg daily [id number] MD Solange Madrigal [employer] [place] [address] 10/11/2023 09:43:36 10/12/2023 08:25:39 Malignant neoplasm of prostate 462365478 C61 1. Prostate cancer- cT1c - [place] 3+3 = 6 - on expectant management - PSA (10.5) - decreased has fluctuated over the years- Follow-up in 6 months with PSA(if PSA increases significan t - check Prostate MRI and recommend TRUS bx Lower urin robbin tract symptoms due to benign prostatic hypertrophy 9588646857 9101 N40.1 2. BPH- voiding okay- continue Flomax 0.4 mg daily [id number] Louis Cook MD [facility] [address] [place] [address] 05/30/2024 12:07:44 06/02/2024 12:10:13 Malignant neoplasm of prostate [id number] C61 1. Prostate cancer- cT1c - [place] 3+3 = 6 - on expectant management - PSA (103) - decreased has fluctuated over the years- Follow-up in 6 months with PSA(if PSA increases significan t - check Prostate MRI and recommend TRUS bx Lower urin robbin tract symptoms due to benign prostatic hypertrophy 3810848131 9101 N40.1 H/O BPH- voiding okay- continue Flomax 0.4 mg daily- check Bladder scan at Follow-up Increased frequency of urination 194164822 R35.0 2. Urinary frequency- his symptoms correlate with his use of Lasix [id number] ANTOINE RAMOS PA-C [facility] [address] [place] [address] 09/25/2024 11:07:09 10/02/2024 12:08:22 Malignant neoplasm of prostate 698291730 C61 1. Prostate cancer- cT1c - [place] 3+3 = 6 - on expectant management - PSA (103) - decreased has fluctuated over the years- Follow-up as scheduled in November with PSA per Dr Cook(if PSA increases significan t - check Prostate MRI and recommend TRUS bx Increased frequency of urination 675032073 R35.0 2. Urinary frequency and urgency- improved since stopping Lasix and tapering steroid Lower urin robbin tract symptoms due to benign prostatic hypertrophy 7293502396 9101 N40.1 H/O BPH- voiding okay- continue Flomax 0.4 mg daily- PVR 162 ml today Urgent maribel ameya to urinate 10197417 R39.15 [id number] Most bothered by urgency / urge incontinen ceAfter must discussion , will trial PRN Gemtesa for days he goes out -- use sparinglyD iscussed expectatio ns, risk of UTIs and difficulty urinating -- low threshhold to discontinu e Gemtesa if not tolerating .Check PVR at next visit -- he will take Gemtesa that morning Will check urine culture today to r/o UTI [id number] ANTOINE RAMOS PA-C [facility] [address] [place] [address] 11/10/2024 10:42:48 11/17/2024 15:53:02 Urinary symptoms 478460482 R39.9 [id number] Louis Cook MD [facility] [address] [place] [address] 12/05/2024 12:10:36 12/07/2024 11:21:36 Malignant neoplasm of prostate [id number] C61 1. Prostate cancer- cT1c - [place] 3+3 = 6 - on expectant management - PSA (13.7) - increased - has fluctuated over the years- Follow-up in 3 months with PSA(if PSA increases significan t - check Prostate MRI and recommend TRUS bx Increased frequency of urination 768724772 R35.0 2. Urinary frequency- he is off Lasix- incomplete emptying (188 mL)- stop Gemtesa 75 mg daily Lower urin robbin tract symptoms due to benign prostatic hypertrophy 6884703542 9101 N40.1 4. BPH- high PVR = 188 mL- continue Flomax 0.4 mg daily- add Cialis 5 mg daily- check Bladder scan at Follow-up Microscopic hematuria 19 3432785 R31.29 [id number] 3. Microscopi c hematuria- check CT Urogram- will need Cystoscopy in near future [id number] Louis Cook MD [facility] [address] [place] [address] 12/26/2024 13:28:42 12/28/2024 12:14:11 Malignant neoplasm of prostate 919260194 C61 2. Prostate cancer- cT1c - [place] 3+3 = 6 - on expectant management - PSA (13.7) - increased - has fluctuated over the years- Follow-up in 3 months with PSA(if PSA increases significan t - check Prostate MRI and recommend TRUS bx Increased frequency of urination 655163001 R35.0 H/O Urinary frequency- he is off Lasix- incomplete emptying (188 mL)- stopped Gemtesa 75 mg daily Microscopic hematuria 19 4445367 R31.29 [id number] 1. Microscopi c hematuria- CT Urogram (12/12/24) [...] tract symptoms due to benign prostatic hypertrophy 4597224084 9101 N40.1 3. BPH- last PVR = 188 mL- continue Flomax 0.4 mg daily- continue Cialis 5 mg daily- check Bladder scan at Follow-up Multiple n odules of lung 609077252 R91.8 [id number] 4. Pulmonary nodules- CT Urogram (12/12/24) - [...] Name 12/30/2024 1 [place] [id number] Enrike Coleman [id number] Enrike Coleman 04/17/2024 1 [place] [employer] Enrike Coleman [id number] Enrike Coleman 04/17/2024 1 [place] [id number] Enrike Coleman [id number] Enrike Coleman Notes Date Note Type Note Provider Name and Address Organization Details Recorded Time 05/30/2024 text/html 84 yo male with history of A.fib (on Eliquis), HTN, DM, memory loss, BPH, and Prostate cancer - T1c - [place] 3+3 = 6 - involving 1/10 cores (< 5%) on Left - TRUS bx (12/15/12) by Dr. Herrera - on expectant management. Prostate MRI (2014) revealed a PI-RADS 2 lesion - underwent MRI bx (10/31/14) of lesion at [facility] - benign. No family H/O prostate cancer. [...] (09/15/22)- 9.08 (04/16/23) Louis Cook MD [address] [facility],[address], [place], [address], [facility] 05/30/2024 14:19:00 09/25/2024 text/html 84 yo male with history of A.fib (on Eliquis), HTN, DM, memory loss, BPH, and Prostate cancer - T1c - [place] 3+3 = 6 - involving 1/10 cores (< 5%) on Left - TRUS bx (12/15/12) by Dr. Herrera - on expectant management. Prostate MRI (2014) revealed a PI-RADS 2 lesion - underwent MRI bx (10/31/14) of lesion at [facility] - benign. No family H/O prostate cancer. [...] 9.08 (04/16/23)- 10.3 (05/30/24) ANTOINE RAMOS PA-C [address] [place] [address],[facility] [address], [place], [address], [facility] 09/25/2024 13:01:31 11/10/2024 text/html Bill is here for UA/UC and PVR- see triage note for Sx detailsNurse visit completed by Meli Sanchez RN. Meli watson, [facility] 11/10/2024 11:19:56 12/05/2024 text/html 84 yo [...] underwent MRI bx (10/31/14) of lesion at [facility] - benign. No family H/O prostate cancer.He [...] 11.80 (09/15/22)- 9.08 (04/16/23) Louis Cook MD [address] [place] [address],[address], [place], [address], [facility] - [facility] 12/05/2024 13:50:09 12/26/2024 text/html 84 yo [...] underwent MRI bx (10/31/14) of lesion at [facility] - benign. No family H/O prostate cancer.He is on Flomax 0.4 mg daily and stopped Gemtesa 75 mg daily. 05/30/24 - He presents for follow-up on Prostate cancer. 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 He reports more frequent / urgent urination since his surgery (on Lasix 40 mg in AM). He voids every 30-2 hours during the day and 1-2x/night. 09/25/24 ([facility]) - He presents for worsening urge incontinence. [...] Right medial lower lobe Louis Cook MD [address] [facility],[address], [place], [address], [facility] 12/26/2024 19:09:44
--- OUTSIDE RECORDS SUMMARY | 2025-01-08 12:56 | XMS_ITS | Continuity of Care Document ---
Author Organization [facility] Address [address] [place] [address] Care Team Providers Care Music Professor Name Role Phone LINDSAY SANFORD Referring Provider [...] [email or web address] ro [facility], [address], [place], [address], 12/26/2024 14:05:06 cultur e, urine 2024 025 [facility], [address], [place], [address], 12/30/2024 11:19:27 Referral None record ed. Procedures [...] Not Available [facility] [address], [place], [address], 11/22/2024 15:45:12 12/27/1912/26/2024 URINE CULTU RE final [...] for provi gricelda revie w. Not Available [facility] [address], [place], [address], 12/30/2024 11:19:27 12/27/1912/26/2024 urina lysis , dipst ick BLOOD Large (250 RBC/uL ) Not Available [facility] [address], [place], [address], 12/26/2024 14:04:23 12/27/19 25 12/26/2024 urina lysis , dipst ick BILIRUBIN Negati ve Not Available [facility] [address], [place], [address], 12/26/2024 14:04:23 12/27/1912/26/2024 urina lysis , dipst ick UROBILINOGEN 0.2 mg/dL (Norm) Not Available [facility] [address], [place], [address], 12/26/2024 14:04:23 12/27/19 25 12/26/2024 urina lysis , dipst ick KETONES Negati ve Not Available [facility] [address], [place], [address], 12/26/2024 14:04:23 12/27/19 25 12/26/2024 urina lysis , dipst ick PROTEIN 100 mg/dL Not Available [facility] [address], [place], [address], 12/26/2024 14:04:23 12/27/19 25 12/26/2024 urina lysis , dipst ick NITRITES Negati ve Not Available [facility] [address], [place], [address], 12/26/2024 14:04:23 12/27/19 25 12/26/2024 urina lysis , dipst ick GLUCOSE >2000 mg/dL Not Available [facility] [address], [place], [address], 12/26/2024 14:04:23 12/27/19 25 12/26/2024 urina lysis , dipst ick p.H. 5.0 Not Available [facility] [address], [place], [address], 12/26/2024 14:04:23 12/27/19 25 12/26/2024 urina lysis , dipst ick S.G. (Specific [place]) 1.025 Not Available [facility] [address], [place], [address], 12/26/2024 14:04:23 12/27/19 25 12/26/2024 urina lysis , dipst ick LEUKOCYTES Small (25 WBC/uL ) Not Available [facility] [address], [place], [address], 12/26/2024 14:04:23 12/14/19 25 12/12/2024 CT, urogr am No observ ation record ed. OLYA Guallpahuy [facility] [address], [place], [address], 12/18/2024 14:28:50 Result Notes None recorded. Procedures Surgical History Date Name Laterality Status Provider Name and Address Organization Details Recorded Time 5 Cystoscopy- male completed Louis Cook MD [address] [facility],[address], [place], [address], [facility] 12/26/2024 19:09:00 5 Keflex post Cysto completed Carlos Enrique falcon [facility] 12/26/2024 13:31:05 5 Urinalysis completed Carlos Enrique falcon [facility] 12/26/2024 13:30:59 5 RADIO SPORTSCASTER/blood draw completed Carlos Enrique falcon [facility] 12/05/2024 12:14:49 5 Bladder Scan completed Louis Cook MD [address] [facility] [address], [place], [address], [facility] 12/05/2024 12:32:40 5 Urine Culture completed Meli Rowan [facility] 11/10/2024 11:16:59 5 Urinalysis completed Meli Rowan [facility] 11/10/2024 11:16:57 5 Urine Culture completed Anastasiia Ingram [facility] 09/25/2024 12:27:34 5 Urinalysis completed Anastasiia Ingram [facility] 09/25/2024 11:46:34 5 Bladder Scan completed Anastasiia Ingram [facility] 09/25/2024 11:46:26 5 Blood Draw/RADIO SPORTSCASTER/PSA RESULTS completed Louis Cook MD [address] [place] [address],[address], [place], [address], [facility] 05/30/2024 12:41:37 4 Blood Draw/RADIO SPORTSCASTER/PSA RESULTS completed Carlos Enrique falcon [facility] 10/11/2023 10:18:27 3 Heart Surgery completed Louis Cook MD [address] [place] [address],[address], [place], [address], [facility] 09/28/2022 16:37:35 procedure on spine completed Louis Cook MD [address] [place] [address],[address], [place], [address], [facility] 09/28/2022 16:37:23 Imaging Results None [...] Social History Question Answer Notes LastModified by [email or web address] Details LastModified Time Tobacco Smoking Status Former Smoker Louis Cook MD [address] [place] [address],[address], [place], [address], [facility] 09/28/2022 16:37:00 What Is Your [...] PF 3 completed Louis Cook MD [address] [facility],[address], [place], [address], [facility] 04/26/2023 10:59:30 RSV, recombinant, protein subunit RSVpreF, adjuvant reconstituted, 0.5 mL, PF 3 completed Louis Cook MD [address] [place] [address],[address], [place], [address], [facility] 04/26/2023 10:59:31 COVID-19, mRNA, LNP-S, PF, 50 mcg/0.5 mL 3 completed Louis Cook MD [address] [place] [address],[address], [place], [address], [facility] 04/26/2023 10:59:31 COVID-19, mRNA, LNP-S, PF, 50 mcg/0.5 mL 4 completed Not Available [facility] 12/26/2024 13:30:47 COVID-19, mRNA, LNP-S, PF, 50 mcg/0.5 mL 4 completed Not Available [facility] 12/26/2024 13:30:47 Influenza, adjuvanted, trivalent, PF 4 completed Not Available [facility] 12/26/2024 13:30:47 COVID-19, mRNA, LNP-S, PF, 50 mcg/0.5 mL 5 completed Not Available [facility] 12/26/2024 13:30:47 IPV 2 completed Susana Allar null, [facility] 01/25/2023 09:28:19 Influenza, adjuvanted, trivalent, PF 7 completed Susana Allar null, [facility] 01/25/2023 09:28:19 Influenza, adjuvanted, trivalent, PF 9 completed Susana Allar null, [facility] 01/25/2023 09:28:19 Influenza, adjuvanted, trivalent, PF 8 completed Susana Allar null, [facility] 01/25/2023 09:28:19 zoster recombinant 0 completed Susana Allar null, [facility] 01/25/2023 09:28:19 zoster recombinant 9 completed Susana Allar null, [facility] 01/25/2023 09:28:19 Influenza, adjuvanted, quadrivalent, PF 0 completed Susana Allar null, [facility] 01/25/2023 09:28:19 Influenza, adjuvanted, quadrivalent, PF 2 completed Susana Allar null, [facility] 01/25/2023 09:28:19 Influenza, adjuvanted, quadrivalent, PF 1 completed Susana Allar null, [facility] 01/25/2023 09:28:19 COVID-19, mRNA, LNP-S, PF, 100 mcg/0.5mL dose or 50 mcg/0.25mL dose 1 completed Susana Allar null, [facility] 01/25/2023 09:28:19 COVID-19, mRNA, LNP-S, PF, 100 mcg/0.5mL dose or 50 mcg/0.25mL dose 1 completed Susana Allar null, [facility] 01/25/2023 09:28:19 COVID-19, mRNA, LNP-S, PF, 100 mcg/0.5mL dose or 50 mcg/0.25mL dose 1 completed Susana Allar null, [facility] 01/25/2023 09:28:19 Pneumococcal conjugate PCV20, polysaccharide [id number] conjugate, adjuvant, PF 3 completed Susana Allar null, [facility] 01/25/2023 09:28:19 COVID-19, mRNA, LNP-S, PF, 30 mcg/0.3 mL dose, octavia-sucrose 2 completed Susana Allar null, [facility] 01/25/2023 09:28:19 COVID-19, mRNA, LNP-S, bivalent, PF, 50 mcg/0.5 mL or 25mcg/0.25 mL dose 3 completed Susana Allar null, [facility] 01/25/2023 09:28:19 COVID-19, mRNA, LNP-S, bivalent, PF, 50 mcg/0.5 mL or 25mcg/0.25 mL dose 2 completed Susana Allar null, [facility] 01/25/2023 09:28:19 pneumococcal polysaccharide PPV23 6 completed Susana Allar null, [facility] 01/25/2023 09:28:19 pneumococcal polysaccharide PPV23 6 completed Susana Allar null, [facility] 01/25/2023 09:28:19 Tdap 1 completed Susana Allar null, [facility] 01/25/2023 09:28:19 Tdap 1 completed Susana Allar null, [facility] 01/25/2023 09:28:19 Pneumococcal conjugate PCV 13 5 completed Susana Allar null, [facility] 01/25/2023 09:28:19 yellow fever live 2 completed Susana Allar null, [facility] 01/25/2023 09:28:19 yellow fever live 1 completed Susana Allar null, [facility] 01/25/2023 09:28:19 zoster live 7 completed Susana Allar null, [facility] 01/25/2023 09:28:19 Influenza, high-dose, trivalent, PF 4 completed Susana Allar null, [facility] 01/25/2023 09:28:19 Influenza, high-dose, trivalent, PF 6 completed Susana Allar null, [facility] 01/25/2023 09:28:19 Influenza, high-dose, trivalent, PF 5 completed Susana Allar null, [facility] 01/25/2023 09:28:19 Influenza, split virus, trivalent, preservative 2 completed Susana Allar null, [facility] 01/25/2023 09:28:19 Influenza, split virus, trivalent, preservative 1 completed Susana Allar null, [facility] 01/25/2023 09:28:19 Influenza, split virus, trivalent, preservative 6 completed Susana Allar null, [facility] 01/25/2023 09:28:19 Influenza, split virus, trivalent, preservative 4 completed Susana Allar null, [facility] 01/25/2023 09:28:19 Influenza, split virus, trivalent, preservative 3 completed Susana Allar null, [facility] 01/25/2023 09:28:19 Influenza, split virus, trivalent, preservative 0 completed Susana Allar null, [facility] 01/25/2023 09:28:19 Influenza, split virus, trivalent, preservative 7 completed Susana Allar null, [facility] 01/25/2023 09:28:19 Influenza, split virus, trivalent, preservative 5 completed Susana Allar null, [facility] 01/25/2023 09:28:19 Td (adult), 5 Lf tetanus toxoid, preservative free, adsorbed 5 completed Susana Allar null, [facility] 01/25/2023 09:28:19 typhoid, ViCPs 2 completed Susana Allar null, [facility] 01/25/2023 09:28:19 typhoid, ViCPs 1 completed Susana Allar null, [facility] 01/25/2023 09:28:19 Hep A-Hep B 2 completed Susana Allar null, [facility] 01/25/2023 09:28:19 Hep A-Hep B 2 completed Susana Allar null, [facility] 01/25/2023 09:28:19 Hep A-Hep B 2 completed Susana Allar null, [facility] 01/25/2023 09:28:19 Past Encounters Encounter ID Performer Location Encounter Start Date Encounter Closed Date Diagnosis/Indication Diagnosis SNOMED-CT Code Diagnosis ICD10 Code Diagnosis IMO Codes Diagnosis Note [id number] Louis Cook MD [facility] [address] [place] [address] 12/05/2024 12:10:36 12/07/2024 11:21:36 Malignant neoplasm of prostate [id number] C61 1. Prostate cancer- cT1c - [place] 3+3 = 6 - on expectant management - PSA (13.7) - increased - has fluctuated over the years- Follow-up in 3 months with PSA(if PSA increases significan t - check Prostate MRI and recommend TRUS bx Increased frequency of urination [id number] R35.0 2. Urinary frequency- he is off Lasix- incomplete emptying (188 mL)- stop Gemtesa 75 mg daily Lower urin robbin tract symptoms due to benign prostatic hypertrophy [id number] 9101 N40.1 4. BPH- high PVR = 188 mL- continue Flomax 0.4 mg daily- add Cialis 5 mg daily- check Bladder scan at Follow-up Microscopic hematuria 19 [id number] R31.29 [id number] 3. Microscopi c hematuria- check CT Urogram- will need Cystoscopy in near future [id number] Louis Cook MD [facility] [address] [place] [address] 12/26/2024 13:28:42 12/28/2024 12:14:11 Malignant neoplasm of prostate [id number] C61 2. Prostate cancer- cT1c - [place] 3+3 = 6 - on expectant management - PSA (13.7) - increased - has fluctuated over the years- Follow-up in 3 months with PSA(if PSA increases significan t - check Prostate MRI and recommend TRUS bx Increased frequency of urination [id number] R35.0 H/O Urinary frequency- he is off Lasix- incomplete emptying (188 mL)- stopped Gemtesa 75 mg daily Microscopic hematuria 19 7803825 R31.29 [id number] 1. Microscopi c hematuria- CT Urogram (12/12/24) [...] tract symptoms due to benign prostatic hypertrophy [id number] 9101 N40.1 3. BPH- last PVR = 188 mL- continue Flomax 0.4 mg daily- continue Cialis 5 mg daily- check Bladder scan at Follow-up Multiple n odules of lung [id number] R91.8 [id number] 4. Pulmonary nodules- CT Urogram (12/12/24) - [...] Name 12/26/2024 1 [employer]: (MEDIC[place]AC[place]) [id number] Enrike Coleman [id number] Enrike Cloeman Notes Date Note Type Note Provider Name and Address Organization Details Recorded Time 12/26/2024 text/html 84 yo male with history of A.fib (on Eliquis), HTN, DM, memory loss, PMR, BPH, and Prostate cancer - T1c - [place] 3+3 = 6 - involving 1/10 cores (< 5%) on Left - TRUS bx (12/15/12) by Dr. Herrera - on expectant management. Prostate MRI (2014) revealed a PI-RADS 2 lesion - underwent MRI bx (10/31/14) of lesion at [facility] - benign. No family H/O [...] medial lower lobe Louis Cook MD [address] [facility] [address],[address], [place], [address], [place] - [facility] 12/26/2024 19:09:44
--- NOTE | 2025-01-08 13:28 | ED_ITS ---
HPI - General Adult General Chief complaint: Weakness Stated complaint: weakness Time Seen by Provider: 01/08/25 13:28 History of Present Illness HPI narrative: Arrives from clinic with complaints of hypotension, weakness, hypoglycemia, and confusion. recent hospitalization and has indwelling Rodriguez from that visit. Complaining of weakness and low back pain in triage. Alert, disoriented to time and situation, VSS, ABCs intact. 84-year-old man presenting to the emergency department with concern of weakness. Was admitted to this facility on 12/28/2024 with urinary tract infection and sepsis and exacerbation of heart failure along with hematuria. Was diuresed. Did receive continuous bladder irrigation and antibiotics. Was discharged on 01/02/2025 and presented back to this emergency department 3 days later with fatigue. At that time was treated for balanitis. Treated with cephalexin and fluconazole cream. At this morning EMS was called following asymptomatic blood sugar of 39. By the time they arrived after had given some juice blood sugar was 134. Presented subsequently to clinic and blood pressures were in the upper 90s to low 100 systolic. He was complaining of lightheadedness at this time. Recommended to return to the emergency department. Has been hard for him to sit up on his own though. Increasingly weak. Has been quite gassy. No bowel movement since discharge from the hospital on the he says. Spouse has also noted increasing confusion today. Mr. Coleman is cognizant of this. Urology appointment in 4 days. Related Data Home Medications ?Medication ?Instructions ?Recorded ?Confirmed apixaban 5 mg tablet (Eliquis) 5 mg PO Q12H 02/15/22 1 03/10/24 blood sugar diagnostic (True 02/15/22 10/25/24 Metrix Glucose Test Strip) metformin 500 mg tablet,extended 2,000 mg PO QPM 02/1501/08/25 release 24 hr acetaminophen 500 mg capsule 1,000 mg PO BID 07/27/23 01/08/25 tamsulosin 0.4 mg capsule 0.4 mg PO DAILY 07/27/2312/23 empagliflozin 10 mg tablet 10 mg PO DAILY 02/24/2412/23 (Jardiance) glipizide 10 mg tablet, extended 20 mg PO DAILY 01/08/25 release 24 hr metoprolol succinate 25 mg 25 mg PO DAILY 02/24/2412/23 tablet,extended release 24 hr nitroglycerin 0.4 mg sublingual 0.4 mg sublingual Q5M PRN 02/24/24 01/08/25 tablet rosuvastatin 20 mg tablet 20 mg PO QPM 02/24/24 aspirin 81 mg capsule 81 mg PO DAILY 06/11/2412/30 cholecalciferol (vitamin D3) 1,250 1,250 mcg PO Q7D 01/08/25 mcg (50,000 unit) capsule prednisone 5 mg tablet 5 mg PO DAILY 12/28/2401/08 tadalafil 5 mg tablet 5 mg PO HS 12/28/24 01/08/25 Previous Rx's ?Medication ?Instructions ?Recorded furosemide 20 mg tablet 40 mg (2 x 20 mg) PO DAILY@0 800 30 01/02/25 days #60 tabs potassium chloride 10 mEq 20 meq (2 x 10 mEq) PO DAILY 30 01/02/25 capsule,extended release days #60 caps cephalexin 500 mg capsule 500 mg PO QID #12 caps 01/05 clotrimazole 1 % topical cream 1 applic topical BID 10 days #15 01/05/25 grams fluconazole 150 mg tablet 150 mg PO Q3D 2 doses #2 tab s 01/05/25 Allergies Allergy/AdvReac Type Severity Reaction Status Date / Time No Known Drug Allergies Allergy Verified 01/08/25 13:03 Review of Systems Status of ROS: Reports: 6 or more systems reviewed and unremarkable except as noted in History and below [facility] Medical History Hematuria ?R31.9 - Hematuria, unspecified (ICD-10) Type 2 diabetes mellitus ?E11.9 - Type 2 diabetes mellitus without complications (ICD-10) HFrEF (heart failure with reduced ejection fraction) ?I50.20 - Unspecified systolic (congestive) heart failure (ICD-10) ASHD (arteriosclerotic heart disease) ?I25.10 - Atherosclerotic heart disease of [place] coronary artery without angina pectoris (ICD-10) Chronic anticoagulation ?Z79.01 - senior living (current) use of anticoagulants (ICD-10) Hypertension ?I10 - Essential (primary) hypertension (ICD-10) BPH without urinary obstruction ?N40.0 - Benign prostatic hyperplasia without lower urinary tract symptoms (ICD-10) Mild cognitive impairment ?G31.84 - Mild cognitive impairment of uncertain or unknown etiology (ICD-10) Prostate cancer ?C61 - Malignant neoplasm of prostate (ICD-10) Mobitz (type) I (Wenckebach's) atrioventricular block ?I44.1 - Atrioventricular block, second degree (ICD-10) Atrial fibrillation ?I48.91 - Unspecified atrial fibrillation (ICD-10) Iron deficiency anemia ?D50.9 - Iron deficiency anemia, unspecified (ICD-10) Erectile dysfunction ?N52.9 - Male erectile dysfunction, unspecified (ICD-10) Displacement of lumbar intervertebral disc without myelopathy ?M51.26 - Other intervertebral disc displacement, lumbar region (ICD-10) Degeneration of lumbar or lumbosacral intervertebral disc ?M51.37 - Other intervertebral disc degeneration, lumbosacral region (ICD-10) Vitamin B12 deficiency ?E53.8 - Deficiency of other specified B group vitamins (ICD-10) Lumbar radiculopathy ?M54.16 - Radiculopathy, lumbar region (ICD-10) 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 - Complete traumatic metacarpophalangeal amputation of unspecified finger, initial encounter (ICD-10) Diabetes ?E11.9 - Type 2 diabetes mellitus without complications (ICD-10) COVID ?U07.1 - COVID-19 (ICD-10) Surgical History S/P CABG x 3 ?Z95.1 - Presence of aortocoronary bypass graft (ICD-10) History of permanent cardiac pacemaker placement ?Z95.0 - Presence of cardiac pacemaker (ICD-10) History of cholecystectomy ?Z90.49 - Acquired absence of other specified parts of digestive tract (ICD- 10) History of appendectomy ?Z90.49 - Acquired absence of other specified parts of digestive tract (ICD- 10) History of arthroscopy of left shoulder (03/21/96) ?Z98.890 - Other specified postprocedural states (ICD-10) History of arthroscopy of right shoulder (11/26/11) ?Z98.890 - Other specified postprocedural states (ICD-10) S/P ORIF (open reduction internal fixation) fracture (04/05/14) ?Z98.890 - Other specified postprocedural states (ICD-10) ?Z87.81 - Personal history of (healed) traumatic fracture (ICD-10) Family History Mother Bowel cancer Social History What is your current living situation?: I presently have a place to live Problems where you live: no known problems Problems where you live details: no known problems In the past 12 months, utilities in danger of being shut off: no In past 12 months, lack of transportation kept you from medical appts, meetings, work, or getting things needed for daily living: no In the past 12 mos, have been you worried that your food would run out before you had money to buy more?: never true In the past 12 mos, the food you bought just didn't last and you didn't have money to buy more?: never true Highest level of school completed/degree received: Bachelor's degree Smoking Status: Former smoker Do you use any of these nicotine containing products: None Second hand tobacco smoke exposure: Yes How often do you have a drink containing alcohol: 4 or more times a week How many standard drinks containing alcohol do you have on a typical day: 1 or 2 AUDIT-C Alcohol total score: 4 Non-prescribed substance use: denies use Caffeine: No How often does anyone, including family, friends and others, physically hurt you : never How often does anyone, including family, friends and others, insult or talk down to you: never How often does anyone, including family, friends and others, threaten you with harm: never How often does anyone, including family, friends and others, scream or curse at you: never service: No Exam Narrative: Exam Narrative: Of good energy. Breathing easily. Lungs appear clear. Rather tender to examination of the genitourinary area. Mild inflammatory changes about uncircumcised foreskin and proximal glans. Little dried blood looks to be bloody drainage into attends. Rodriguez in place draining clear yellow urine. A little sore in the right lower abdomen. Abdomen is full. Tympanitic. Pre sent bowel sounds. Lower extremities are without edema. Does appear to be demonstrating mild confusion. I do not see other evidence of sepsis at this time. Const: Vital Signs, click to edit/add: Vital Signs - 24 hr 01/08/25 13:09 01/08/25 14:27 Temperature 98.1 F Pulse Rate [Pulse Oximeter] 72 Respiratory Rate 20 Blood Pressure [Ri ght Upper Arm] 117/79 Blood Pressure [or thostatic lying Ri ght Arm] 115/64 Blood Pressure [or thostatic sitting Right Arm] 114/63 Blood Pressure [or thostatic standing Right Arm] 110/59 L Pulse Oximetry 97 Oxygen Delivery Me thod Room Air Documenting provider has reviewed patient's vital signs: yes Course Vital Signs Vital signs: Initial Vital Signs Temperature 98.1 F 01/08/25 13:09 Temperature Source Temporal Artery Scan 01/08/25 13:09 Pulse Rate 72 01/08/25 13:09 Respiratory Rate 20 01/08/25 13:09 Blood Pressure 117/79 01/08/25 13:09 Blood Pressure Mean 91 01/08/25 13:09 Pulse Oximetry 97 01/08/25 13:09 Oxygen Delivery Method Room Air 01/08/25 13:09 Vital Signs Temperature 98.1 F 01/08/25 13:09 Pulse Rate 72 01/08/25 13:09 Respiratory Rate 20 01/08/25 13:09 Blood Pressure 117/79 01/08/25 13:09 Pulse Oximetry 97 01/08/25 13:09 Oxygen Delivery Method Room Air 01/08/25 13:09 Temperature 98.1 F 01/08/25 13:09 Pulse Rate 72 01/08/25 13:09 Respiratory Rate 20 01/08/25 13:09 Blood Pressure 115/64 01/08/25 14:27 Pulse Oximetry 97 01/08/25 13:09 Oxygen Delivery Method Room Air 01/08/25 13:09 Medications Administered Medications: Discontinued Medications Generic Name Dose Route Start Last Admin Trade Name Freq PRN Reason Stop Dose Admin Sodium Chloride 500 mls @ 500 mls/hr 01/08/25 13:49 01/08/25 14:50 0.9 % Sodium Chloride 500 Ml IV 01/08/25 14:48 500 mls/hr .Q1H ONE Administration Ceftriaxone Sodium 1 gm/ 100 mls @ 200 mls/hr 01/08/25 17:00 01/08/25 17:38 Sodium Chloride IVPB 01/08/25 17:29 200 mls/hr ONCE ONE Administration Medical Decision Making MDM Narrative Medical decision making narrative: Monitor on bus driver/monitor. Monitor for blood sugar stability. By the time I entered the room Mr. Coleman is already drinking more apple juice and eating. Does appear to still have some evidence of balanitis. Will see if symptoms of strength change at all. Does appear to be having increased weakness and confusion over the last day or 2. Would have concerns of return of infection destabilizing blood sugar and certainly contributing to confusion. No convincing urine culture results upon review of record from 12/28/2024 Labs are generally reassuring. ProBNP is half prior. Urinalysis looks rather infected. Not sure what to make of this though in the setting indwelling Rodriguez. Will give a g Rocephin pending cultures. Abdominal x-ray by my independent review shows good deal of stool but no concerning air-fluid levels. Chest x-ray independent review me is without infiltrate. Postoperative changes. Spouse quite concerned about taking him home after discussion of potential plan. Does have historical instability of blood pressures/lightheadedness and has been quite sick recently. Blood sugars unusually low this morning. Has demonstrated stability here I think but would recommend regular checks overnight if goes home. Does need to begin to work on bowels. Vitals have been stable. Blood sugars improved. Did discuss going home though they are concerned of potential lability of blood sugars or blood pressures. Did discuss this case with hospitalist for potential admission. Nothing with which to intervene at this time. Recommend holding glipizide. See patient discharge plan for further discussion The good news is that you seem to be doing quite well at the moment. I understand that in anticipation of upcoming procedures you are being told to hold certain medications. Considering your low blood sugar this morning, I would hold your glipizide until follow-up or recommended otherwise, confirming absence of infection and stable blood sugars. Go ahead and place the suppository when you feel that may be in a place where within 8 hours of placement you could handle a bowel movement. Consider also taking half a bottle of magnesium citrate and repeating dose perhaps 12 to 18 hours later if no significant results. I would also place a suppository again 12 hours from the 1st if no decent result. Alternative would be an enema which can also be purchased [id number]. Check blood sugar again around 10:00 p.m. and if this is okay then around 1 or 2:00 a.m. with morning check around waking if the last check also is within goal. If any concerns of worsening altered mental status, evolution of fever, marked increase in weakness or unstable blood sugars, please return. Pending urine cultures, please continue cephalexin which I have prescribed from [facility]. Medical Records Medical records reviewed: Yes I reviewed the patient's medical records Lab Data Lab results reviewed: Yes I reviewed the patient's lab results Labs: Lab Results 01/08/25 01/08/25 Range/Units 14:25 15:21 WBC 6.56 (4.50-11.00) K/uL RBC 3.78 L (4.30-5.90) m/uL Hgb 9.8 L (13.5-17.5) gm/dL Hct 31.7 L (37.0-53.0) % MCV 84 (80-100) fL MCH 26 (26-34) pg MCHC 31 L (32-36) gm/dL RDW Coeff of [place] 14.9 (11.5-15.5) % Plt Count 245 (140-440) K/uL Neut % (Auto) 67.2 (42.0-72.0) % Lymph % (Auto) 19.4 L (20-44) % [place] % (Auto) 9.8 (0.0-11.0) % Eos % (Auto) 2.9 (0.0-7.0) % Baso % (Auto) 0.5 (0.0-3.0) % Neut # (Auto) 4.42 (1.7-7.0) K/uL Lymph # (Auto) 1.30 (0.90-2.90) K/uL [place] # (Auto) 0.60 (0.00-0.90) K/UL Eos # (Auto) 0.19 (0.00-0.50) K/uL Baso # (Auto) 0.03 (0.00-0.30) K/uL Abs Immat Gran (auto) 0.01 (0.00-0.30) K/uL Imm/Tot Granulo (auto) 0.2 % INR 1.22 H (0.91-1.10) APTT 36 H (23-33) Seconds Sodium 132 L (135-149) mmol/L Potassium 3.9 (3.6-5.1) mmol/L Chloride 97 (96-114) mmol/L Carbon Dioxide 25 (20-32) mmol/L Anion Gap 10 (7-15) mEq/L BUN 17 (7-30) mg/dL Creatinine 0.8 (0.5-1.5) mg/dL Estimated GFR 86 ml/min Glucose 221 H (60-115) mg/dL Calcium 8.2 L (8.4-10.6) mg/dL Troponin I < 0.01 (0.01-0.04) ng/mL NT-Pro-B Natriuret Pep 1620 H (See Note) pg/mL Urine Color Yellow (Yellow) Urine Appearance Clear (Clear) Urine pH 5.0 (5.0-8.5) Ur Specific [place] <= 1.005 (1.000-1.030) Urine Protein 1+ A (Negative) Urine Glucose (UA) 2+ A (Negative) Urine Ketones Negative (Negative) Urine Blood 3+ A (Negative) Urine Nitrite Negative (Negative) Urine Bilirubin Negative (Negative) Urine Urobilinogen 1.0 (0.2-1.0) Ur Leukocyte Esterase Trace A (Negative) Urine RBC >100 A (0-2) Urine WBC >100 A (0-5) Ur Squamous Epith Cells Few (None-Few) Amorphous Sediment Few A (None) Other Sediment Many yeast (None) Urine Bacteria Many A (None) ECG Data Attestation: I personally reviewed and interpreted this ECG as follows: (Ventricular paced rhythm. This does appear similar to prior. Rate of 70) Discharge Plan Discharge Clinical Impression: Hypoglycemia, Weakness, Constipation Patient Disposition: Home w/ Parent or Adult Condition: Improved Additional Instructions: The good news is that you seem to be doing quite well at the moment. I understand that in anticipation of upcoming procedures you are being told to hold certain medications. Considering your low blood sugar this morning, I would hold your glipizide until follow-up or recommended otherwise, confirming absence of infection and stable blood sugars. Go ahead and place the suppository when you feel that may be in a place where within 8 hours of placement you could handle a bowel movement. Consider also taking half a bottle of magnesium citrate and repeating dose perhaps 12 to 18 hours later if no significant results. I would also place a suppository again 12 hours from the 1st if no decent result. Alternative would be an enema which can also be purchased [id number]. Check blood sugar again around 10:00 p.m. and if this is okay then around 1 or 2:00 a.m. with morning check around waking if the last check also is within goal. If any concerns of worsening altered mental status, evolution of fever, marked increase in weakness or unstable blood sugars, please return. Pending urine cultures, please continue cephalexin which I have prescribed from [facility]. Prescriptions: No Action tamsulosin 0.4 mg capsule 0.4 mg PO DAILY acetaminophen 500 mg capsule 1,000 mg PO BID glipizide 10 mg tablet extended release 24hr 20 mg PO DAILY nitroglycerin 0.4 mg tablet, sublingual 0.4 mg sublingual Q5M PRN metoprolol succinate 25 mg tablet extended release 24 hr 25 mg PO DAILY rosuvastatin 20 mg tablet 20 mg PO QPM Jardiance 10 mg tablet 10 mg PO DAILY fluconazole 150 mg tablet 150 mg PO Q3D Qty: 2 0RF cephalexin 500 mg capsule 500 mg PO QID Qty: 12 0RF clotrimazole 1 % cream 1 applic topical BID 10 Days Qty: 15 0RF (DME) True Metrix Glucose Test Strip Strip MISCELLANEOUS Patient Comments: TEST 2 TIMES PER WEEK. metformin 500 mg tablet extended release 24 hr 2,000 mg PO QPM Patient Comments: TAKE 4 TABLETS (2,000 MG) BY MOUTH ONCE DAILY WITH EVENING MEAL. Eliquis 5 mg tablet 5 mg PO Q12H Patient Comments: TAKE 1 TABLET (5 MG) BY MOUTH TWO TIMES DAILY. aspirin 81 mg capsule 81 mg PO DAILY cholecalciferol (vitamin D3) 1,250 mcg (50,000 unit) capsule 1,250 mcg PO Q7D prednisone 5 mg tablet 5 mg PO DAILY tadalafil 5 mg tablet 5 mg PO HS potassium chloride 10 mEq Capsule, Extended Release 20 meq PO DAILY 30 Days Qty: 60 0RF furosemide 20 mg Tablet 40 mg PO DAILY@0800 30 Days Qty: 60 0RF Follow Up/Referrals: Bari Toscano MD [Primary Care Provider, [facility]] Stand Alone Forms: MyHealth Info Instructions
--- NOTE | 2025-01-08 13:49 | CRLHL7_ITS ---
For Patients: As a result of the Century Cures Act, medical imaging exams and procedure reports are released immediately into your electronic medical record. You may view this report before your referring provider. If you have questions, please contact your health care provider. Indication: Weakness Technique: Chest 2 views. Comparison: Chest radiograph 01/05/2025. Findings/Impression: Cardiovascular and mediastinum: Unchanged. Lungs and pleural spaces: Lungs are clear aside from minimal basilar atelectasis. No pleural effusion or pneumothorax. Bones and soft tissues: No acute findings. Intact median sternotomy wires. Dictated by Franca Judge MD @ 01/08/2025 2:57:50 PM (Electronically Signed)
--- NOTE | 2025-01-08 13:52 | CRLHL7_ITS ---
For Patients: As a result of the Century Cures Act, medical imaging exams and procedure reports are released immediately into your electronic medical record. You may view this report before your referring provider. If you have questions, please contact your health care provider. Indication: Abdominal distention Technique: Abdomen 2 view. Comparison: CT chest abdomen and pelvis 12/28/2024. Findings/Impression: Bowel: Bowel pattern is nonspecific and nonobstructive. Moderate stool burden. Soft tissues: No sign of free air. Partially imaged pacemaker electrodes. Bones: No acute abnormality. Dictated by Franca Judge MD @ 01/08/2025 2:55:51 PM (Electronically Signed)
[2025-01-08 14:35] LABS: Appearance Urine Clear (Clear)
[2025-01-08] MEDS: 0.9 % SODIUM CHLORIDE 500 ML 500 ML IV (14:50)
[2025-01-08 15:32] LABS: Hematocrit* 31.7 % (37.0-53.0); Hemoglobin* 9.8 gm/dL (13.5-17.5); Immature Granulocytes Abs Auto 0.01 K/uL (0.00-0.30); Immature Granulocytes Pct Auto 0.2 %; Mean Corpuscular HGB Conc 31 gm/dL (32-36); Mean Corpuscular Hemoglobin 26 pg (26-34); Mean Corpuscular Volume 84 fL (80-100); RDW Coefficient of Variation % 14.9 % (11.5-15.5); Red Blood Count* 3.78 m/uL (4.30-5.90); White Blood Count* 6.56 K/uL (4.50-11.00)
[2025-01-08 15:40] LABS: Lymphocytes Absolute Auto 1.30 K/uL (0.90-2.90); Slide Review Reflex No
[2025-01-08 15:46] LABS: Chloride* 97 mmol/L (96-114); Potassium* 3.9 mmol/L (3.6-5.1); Sodium* 132 mmol/L (135-149)
[2025-01-08 15:48] LABS: Blood Urea Nitrogen* 17 mg/dL (7-30); Creatinine* 0.8 mg/dL (0.5-1.5); Estimated Glomerular Filt Rate 86 ml/min
[2025-01-08 15:49] LABS: Anion Gap 10 mEq/L (7-15); Calcium* 8.2 mg/dL (8.4-10.6); Carbon Dioxide* 25 mmol/L (20-32); Glucose* 221 mg/dL (60-115)
[2025-01-08 15:50] LABS: INR 1.22 (0.91-1.10); Prothrombin Time 16.3 Seconds
[2025-01-08 16:02] LABS: NT Pro B Type NatriureticPept* 1620 pg/mL (See Note)
[2025-01-08] MEDS: cefTRIAXone 1 GM in 0.9 % SODIUM CHLORIDE Mini-bag 100 ML IVPB (17:38)
== END 2025-01-08 19:22 | disposition home or self-care (01) ==
PROVIDERS: Emergency Provider Family Medicine; PCP Family Medicine
DX: R53.1 Weakness (principal); E11.649 Type 2 diabetes mellitus with hypoglycemia without coma; K59.00 Constipation, unspecified; I11.0 Hypertensive heart disease with heart failure; I50.20 Unspecified systolic (congestive) heart failure; Z96.0 Presence of urogenital implants; Z79.84 Long term (current) use of oral hypoglycemic drugs
CPT/HCPCS: 36415; 71046; 74018; 80048; 81001; 83880; 84484; 85025; 85610; 85730; 87040; 87086; 93005; 96361; 96365; 99284; 99285; J0696; J7030

== ENCOUNTER 2025-01-09 17:38 | Emergency (ER) | payer MEDICARE, SELFPAY ==
--- OUTSIDE RECORDS SUMMARY | 2025-01-09 17:41 | XMS_ITS | Encounter Summary ---
Author Organization [facility] Address [address] [place] [id number] Care Team Providers Care Form Maker Name Role Phone Clinic, Not Listed Unavailable Unavailable Bari Toscano MD Primary Care Provider America Lim PA-C Unavailable [phone] Encounter Details Date Type Department Care Team (Late st Contact Info) Description 10/20/2024 Results Follow-Up [facility] - [address] [place] [address] [phone] America Lim PA-C [address] [place] [address] [place] [id number] METHYLMALONIC ACID, SERUM ([facility]), TSH ([facility]), VITAMIN [...] deficiency documented in this encounter Care Teams Form Maker Relationship Specialty Start Date End Date Clinic, Not Listed PCP - Primary Care Clinic 04/06/06 Bari Toscano MD [address] [place] [address] PCP - General Family Medicine 08/30/24 America Lim PA-C [address] [facility] [address] [place] [address] Neurology 08/30/24 documented as of this encounter
--- OUTSIDE RECORDS SUMMARY | 2025-01-09 17:41 | XMS_ITS | Clinical Summary ---
Author Organization [facility] Address [address] [place] [id number] Care Team Providers Care Bias Cutting Machine Operator Vertical Name Role Phone Clinic, Not Listed Unavailable Unavailable Bari Toscano MD Primary Care Provider America Lim PA-C Unavailable [phone] Allergies No known active allergies Medications acetaminophen [...] Description 11/16/2024 7:30 AM CDT Ancillary Procedure [address] [place] [phone] Memory loss or impairment 10/20/2024 Results Follow-Up [address] [place] [phone] America Lim PA-C METHYLMALONIC ACID, SERUM ([facility]), TSH ([facility]), VITAMIN D, 25-HYDROXY ([facility]), Additional followed-up results: 5 10/09/2024 2:00 PM CDT Office Visit [facility] - [address] [place] [address] America Lim PA-C Memory loss [...] not included. PATIENT NAME: Mac Yarbrough LOCATION: [facility] TEST DATE: 11/16/2024 : 1940 TECH NAME: [...] discharges were observed. Javy Acosta MD Neurologist, [facility] 2:57 PM 11/17/2024 us America Lim PA-C EEG ORDERABLE Final Res ult * (ABNORMAL) ATN PROFILE ([facility]) (10/09/2024 1:20 PM CDT) A -- Beta-amyloid 42/40 Ratio ([facility]) 0.085(L) >0.102 [facility] 1 Beta-amyloid 42 ([facility]) 18.30 pg/mL [facility] 1 Beta-amyloid 40 ([facility]) 216.27 pg/mL [facility] 1 T -- [id number] ([facility]) 0.92 0.00 - 0.97 pg/mL [facility] 1 N -- NfL, Plasma ([facility]) 12.50(H) 0.00 - 9.13 pg/mL [facility] 1 ATN SUMMARY [1] ([facility]) Comment [facility] Comment: A+ T- N+ A low beta-amyloid 42/40 ratio and a high NfL concentration were observed. A normal mBxt978 concentration was observed at this time. These [...] developed and their performance characteristics determined by [employer] They have not been cleared or approved by the Food and Drug Administration. * METHODOLOGY: Beta-amyloid 42/40 Ratio: Sysmex Chemiluminescence Enzyme Immunoassay (CLEIA) NfL and p-chm186: Tests performed by [facility] Electrochemiluminescence Immunoassay (ECLIA). Values obtained with different methods cannot be used interchangeable. These tests were developed and their performance characteristics determined by [facility]. They have not been cleared or approved by the Food and Drug Administration. * p-[id number] INFORMATION: For individual 0-55 years of age: [...] are based on a consensus between National Lucas for Age and the Internation Working Group [...] 11:09 AM CDT Performed at: 01 - [facility] [id number] Emergency Room Clerk: Kim Jim MD, Phone: [phone] us America Lim PA-C [facility] ORDERABLES Final Result [facility] 1 * (ABNORMAL) PHOSPHORYLATED TAU 217 (PTAU-217), PLASMA ([facility]) (10/09/2024 1:20 PM CDT) p-dhk174 ([facility]) 0.25(H) 0.00 - 0.18 pg/mL [facility] 3 Comment: Clinical cutoff value was established using samples from a patient cohort characterized with amyloid PET data. A p-opc497 value of >0.18 is a reported surrogate marker for beta amyloid pathology, and can be used to facilitate biological identification of Alzheimer's disease (1). p-tko172 has also been used in clinical trials to monitor patients on anti-amyloid therapy (2,3). Test performed by [employer] chemiluminescent enzyme immunoassay (CLEIA). Values obtained with different methods cannot be used interchangeably. The validated limit of quantification is 0.06 pg/mL. Assay detection limit is 0.03 pg/mL. Footnotes ([facility]) Comment [facility] 3 Comment: 1. Mele Prater, et al. Diagnostic Accuracy of a Plasma Phosphorylated Tau 217 Immunoassay for Alzheimer Disease Pathology. KAMILA neurology (2023). 2. Mele Prater et al. Differential roles of A42/40, p-coy940 and p-exg948 for Alzheimer's trial selection and disease monitoring. Nature medicine 28.12 (2021): 1381-4920. 3. Sridevi GREY, Ruth M, Sindhu SC, et al. Association of Donanemab Treatment With Exploratory Plasma Biomarkers in Early Symptomatic Alzheimer Disease: A Secondary Analysis of the TRAILBLAZER-ALZ Randomized Clinical Trial. KAMILA Neurol. 2021;79(12):0393-2224. Blood 10/09/2024 1:20 PM CDT 10/09/2024 11:00 PM CDT Narrative [facility] 3 - 10/20/2024 11:09 AM CDT Test(s) [id number] was developed and its performance characteristics determined by [facility]. It has not been cleared or approved by the Food and Drug Administration. Performed at: 03 - [facility] [address] [place] [id number] Emergency Room Clerk: Tessa Morales MD, Phone: [phone] America Lim PA-C [facility] ORDERABLES Final Result [facility] * METHYLMALONIC ACID, SERUM ([facility]) (10/09/2024 1:20 PM CDT) Methylmalonic Acid ([facility]) 109 0 - 378 nmol/L [facility] 1 Blood 10/09/2024 1:20 PM CDT 10/09/2024 11:00 PM CDT Narrative [facility] 1 - 10/20/2024 11:09 AM CDT Test(s) 196927-Ddqfeqbyxasrb Acid, Serum was developed and its performance characteristics determined by [facility]. It has not been cleared or approved by the Food and Drug Administration. Performed at: [facility] [address] [id number] Emergency Room Clerk: Kim Jim MD, Phone: [phone] America Lim PA-C [facility] ORDERABLES Final Result Performing Organization Address [facility] Co de Phone Number [facility] 1 * (ABNORMAL) VITAMIN D, 25-HYDROXY ([facility]) (10/09/2024 1:20 PM CDT) Vitamin D,25 Hydroxy ([facility]) 20.8(L) 30.0 - 100.0 ng/mL [facility] 4 Comment: Vitamin D deficiency has been defined by the Lucas of Medicine and an Endocrine Society practice guideline as a level of serum 25-OH vitamin D less than 20 ng/mL (1,2). The Endocrine Society went on to further define vitamin D insufficiency as a level between 21 and 29 ng/mL (2). 1. IOM (Lucas of Medicine). 2010. Dietary reference intakes for calcium and D. [place]: The National Academies Press. 2. Elroy MF, Hilario NC, Tracie CASH, et al. Evaluation, treatment, and prevention of vitamin D deficiency: an Endocrine Society clinical practice guideline. JCEM. 2010; 96(7):1911-30. Blood 10/09/2024 1:20 PM CDT 10/09/2024 11:00 PM CDT Narrative [facility] 4 - 10/20/2024 11:09 AM CDT Performed at: - [facility] [address] [id number] Emergency Room Clerk: Angel Rodriguez MD, Phone: [phone] us America Lim PA-C [facility] ORDERABLES Final Result Performing Organization Address [facility]/ZIP Co de Phone Number [facility] 4 * TSH ([facility]) (10/09/2024 1:20 PM CDT) TSH ([facility]) 1.040 0.450 - 4.500 uIU/mL [facility] 4 Blood 10/09/2024 1:20 PM CDT 10/09/2024 11:00 PM CDT Narrative [facility] 4 - 10/20/2024 11:09 AM CDT Performed at: [address] [place] [id number] Emergency Room Clerk: Angel Rodriguez MD, Phone: [phone] America Lim PA-C [facility] ORDERABLES Final Result Performing Organization Address [facility] Co de Phone Number [facility] 4 * VITAMIN B12 ([facility]) (10/09/2024 1:20 PM CDT) [facility] Vitamin B12 ([facility]) 924 232 - 1,245 pg/mL [facility] 4 Blood 10/09/2024 1:20 PM CDT 10/09/2024 11:00 PM CDT Narrative [facility] 4 - 10/20/2024 11:09 AM CDT Performed at: [address] [place] [id number] Emergency Room Clerk: Angel Rodriguez MD, Phone: [phone] America Lim PA-C [facility] ORDERABLES Final Result Performing Organization Address [facility] de Phone Number [facility] 4 * APOE ALZHEIMER'S RISK ([facility]) (10/09/2024 1:20 PM CDT) Pathologist [facility] Method APOE ([facility]) Comment [facility] 2 Comment: Patient DNA is assayed for the APOE genotype by PCR amplification of a specific region in exon 4 of the APOE gene followed by digestion with restriction enzyme Computer Networking Instructor I and separation of fragments by [...] For inquiries or [facility], [facility] at . Comment APOE ([facility]) Comment [...] the APOE4 variant and by approximately 10 dy52-zmpq for individuals with two copies of this [...] developed and its performance characteristics determined by [employer]. It has not been cleared or approved by the Food and Drug Administration. The FDA has determined that such clearance or approval is not necessary. REFERENCES Pricilla Ramírez et al. Sex modifies the APOE-related risk of developing Alzheimer disease. Annal Neurol 2014;75(4):563-573 Osiel DE LA GARZA. Alzheimer Disease Overview. Aisle50 (Cov[employer]). Emma THOMPSON et al., editors. [facility]: [facility], [place], [place]. Last revised 2014. Kaushik JS et al. Genetic counseling and testing for Alzheimer disease: Joint practice guidelines of the [place] College [employer] Medical Genetics and the National Society of Genetic Counselors. Keyonna in Med 2011;136597-605. Twan CABA. Apolipoprotein E: Implications for AD neurobiology, epidemiology and risk assessment. Neurobiology of Aging 2011;32:778-790 Blood 10/09/2024 1:20 PM CDT 10/09/2024 11:00 PM CDT Narrative [facility] 2 - 10/20/2024 11:09 AM CDT Performed at: [employer] [address] [id number] Emergency Room Clerk: Jovi Daniel MD, Phone: [phone] us America Lim PA-C [facility] ORDERABLES Final Result [facility] 2 * CREATININE EGFR (10/31/2014 12:10 PM CDT) Creatinine 1.01 0.70 - 1.30 mg/dL 10/31/2014 12:46 PM CDT [facility] Est GFR (CKD-EPI) >60 >60 mL/min 10/31/2014 12:46 PM CDT [facility] EST GFR IF AM >60 >60 mL/min 10/31/2014 12:46 PM CDT [facility] Blood 10/31/2014 12:1 0 PM CDT 10/31/2014 12:15 PM CDT us Ericstephen Altamirano MD CHEMISTRY ORDERABLE Final R esult [facility] [address] [place] [address] from Last 3 Months or Most Recently Relevant to Health Maintenance Insurance MEDICARE PART A & B [facility]IC[facility] ADVANTAGE Care Teams Bias Cutting Machine Operator Vertical Relationship Specialty Start Date End Date Clinic, Not Listed PCP - Primary Care Clinic 04/06/06 Bari Toscano MD [address] [place] [address] PCP - General Family Medicine 08/30/24 America Lim PABrandonC [address] [place] [address] [address] [place] [address] Neurology 08/30/24
--- OUTSIDE RECORDS SUMMARY | 2025-01-09 17:42 | XMS_ITS | Clinical Summary ---
Author Organization [facility] Address [address] [place] [address] Care Team Providers Care Chairman & Co Founder Name Role Phone Pardeep Baird [facility] Unavailable + Rocael Gamez Unavailable Bari Toscano MD Primary Care Provider Hudson Valle MD Unavailable [phone] Allergies No known active allergies Medications lancets [...] PER WEEK. 50 Each 3 11/25/19 Active glipiZIDE extended-release (GLUCOTROL XL) 10 mg Extended-Release tabletIndication s:Type 2 diabetes mellitus without complication, without long-term current use of insulin (HC) Take 1 Tablet (10 mg) by mouth once daily before a meal. 01/09/20 Active potassium chloride (KLOR-CON M20) 20 mEq extended-release tablet (part/cryst)Chana cations:S/P CABG x 3 Take 1 Tablet (20 mEq) by mouth once daily. As needed if he takes furosemide. 09/12/19 025 Discontinu ed(*Med complete/R egimen complete/L evel of care change) furosemide (LASIX) 20 mg tablet Take 1 Tablet (20 mg) by mouth once daily in the morning. As needed for signs of fluid retention. 09/12/19 025 Discontinu ed(*Med complete/R egimen complete/L evel of care change) glipiZIDE extended-release (GLUCOTROL XL) 10 mg Extended-Release tabletIndication s:Type 2 diabetes mellitus without complication, without long-term current use of insulin (HC) Take 2 Tablets (20 mg) by mouth once daily before a meal. 180 Tablet 1 11/23/19 025 Discontinu ed(*Medica tion adjustment ) tadalafiL (CIALIS) 5 mg tablet Take 5 mg by mouth once daily. 12/06/19 025 Discontinu ed(*Med complete/R egimen complete/L evel of care change) cephalexin 500 mg capsule Take 1 Capsule by mouth every 6 hours. 01/06/20 Active Problems Problem Noted Date Diagnosed Date [...] Department Care Team Description 01/08/2025 11:20 AM MEN'S LOCKER ROOM ATTENDANT Office Visit [facility] [address] [place] [address] Bari Toscano MD Preoperative Exam (DOS: 01/12/2025, CYSTOSCOPY BIOPSY BLADDER, Dr. Cook, ANW/DOS: 01/23/2025 and 2025, cataract, Dr. Naik, [facility]); Hospital F/U ([facility], 12/28/2024 - 01/02/2025, septic UTI); ER Follow up ([place] [facility], 01/05/2025, fungal infection around catheter ) 01/08/2025 Travel 01/05/2025 Orders Only [facility] Scanner 1 scan: (1-Ord) [facility], CHEST 1V PORTABLE, 01/05/2025 01/02/2025 Nurse Triage [facility] [address] [place] [address] Bari Toscano MD Urinary Problem 12/31/2024 Orders Only [facility] Scanner 1 scan: (1-Ord) [place], XR CHEST 1V PORTABLE , 12/31/2024 12/29/2024 4:00 PM CDT Ancillary Procedure [facility] [address] [place] [address] 12/28/2024 Orders Only [facility] Scanner 1 scan: (1-Ord) [place], CHEST ABDOMEN PELV W/ CONTRAST, 12/28/2024 12/28/2024 Orders Only [facility] Scanner 1 scan: (1-Ord) [facility], XR CHEST 1V PORTABLE , 12/28/2024 12/26/2024 Orders Only [facility] Scanner 1 scan: (1-Ord) [facility], CYSTOSCOPY, 12/26/2024 12/12/2024 9:10 AM CDT Ancillary Procedure [facility] [address] [place] [address] 12/12/2024 8:15 AM CDT Orders Only [facility] [address] [place] [address] Lab, [place] <No scans attached> 12/11/2024 9:00 AM CDT Office Visit [facility] [id number] [place] [address] [address] [place] [address] Case, JEFFERY Briggs Follow Up (6 month [...] 12/05/2024 Transcribe Orders [facility] [place] [phone] Louis Cook MD 11/22/[address] [address] Bari Toscano MD Refill Request (True Metrix Glucose Test Strip) 11/22/2024 Orders Only [address] [address] Bari Toscano MD <No scans attached> 11/21/2024 8:25 AM CDT Office Visit [facility] [address] [place] [address] Bari Toscano MD Follow Up 11/21/2024 Refill [facility] [address] [place] [address] Bari Toscano MD Refill Request (Metformin, Glipizide Extended-release) 11/20/2024 4:00 PM CDT Office Visit [facility] [address] [place] [address] Erik Hahn MD Follow Up (excisional debridement of unhealing traumatic scalp laceration) 11/20/2024 Travel 11/16/2024 Orders Only [facility] Scanner 1 scan: (1-Ord) [facility] 11/16/2024 Refill [facility] [address] [place] [address] Bari Toscano MD Refill Request (Metformin, Jardiance) 11/14/2024 Refill [facility] [address] [place] [address] Bari Toscano MD Refill Request (Glipizide Extended-release) 11/09/2024 Telephone [facility] [place] [address] [place] [address] Sheldon Enriquez RN 11/06/2024 3:15 PM CDT Office Visit [facility] [address] [place] [address] Erik Hahn MD Follow Up (Excisional debridement of left posterior scalp and right mid thigh abscess 10/25/24) 11/06/2024 Travel 10/24/2024 Transcribe Orders [facility] [phone] America Lim PA-C 10/23/2024 12:30 PM CDT Office Visit [address] [address] Erik Hahn MD Consult (Head injury --check head injury -laceration DOI-10/02/24/Also was seen in ED for cellulitis right thigh) 10/23/2024 Travel 10/18/2024 1:40 PM CDT Office Visit [facility] [address] [place] [address] Bari Toscano MD Follow Up (Head injury) 10/18/2024 Travel 10/11/2024 10:55 AM CDT Office Visit [facility] [address] [place] [address] Bari Toscano MD ER Follow up (10/02/2024, [facility] ER, fall with head laceration) 10/11/2024 Travel [...] on file Legal Sex Male 5:25 AM MEN'S LOCKER ROOM ATTENDANT Gender Identity Not on file Sexual Orientation Not on file Obstetrics History Last Filed Vital Signs Vital Sign Reading Time Taken Comments Blood Pressure 104/60 01/08/2025 11:58 AM MEN'S LOCKER ROOM ATTENDANT Pulse 71 01/08/2025 11:15 AM MEN'S LOCKER ROOM ATTENDANT Temperature 36.5 C (97.7 F) 10/23/2024 12:25 PM CDT Respiratory Rate 20 04/13/2024 3:00 PM MEN'S LOCKER ROOM ATTENDANT Oxygen Saturation 99% 01/08/2025 11:15 AM MEN'S LOCKER ROOM ATTENDANT Inhaled Oxygen Concentration - - Weight 83.6 kg (184 lb 6.4 oz) 01/08/2025 11:15 AM MEN'S LOCKER ROOM ATTENDANT Height 170.2 cm (5' 7) 01/08/2025 11:15 AM MEN'S LOCKER ROOM ATTENDANT Body Mass Index 28.88 01/08/2025 11:15 AM MEN'S LOCKER ROOM ATTENDANT Plan of Treatment Upcoming Encounters Date Type Department Care Team (Late st Contact Info) Description 01/10/2025 1:40 PM MEN'S LOCKER ROOM ATTENDANT Office Visit [facility] [address] [place] [address] Bari Toscano MD [address] [place] [address] 01/12/2025 1:51 PM MEN'S LOCKER ROOM ATTENDANT Hospital Encounter [facility] [address] [place] [address] Louis Cook MD [address] [place] [address] 01/12/2025 1:51 PM MEN'S LOCKER ROOM ATTENDANT - 01/12/2025 2:54 PM MEN'S LOCKER ROOM ATTENDANT Surgery [facility] [address] [place] [address] Louis Cook MD [address] [place] [address] Cystoscopy 02/06/2025 1:00 PM MEN'S LOCKER ROOM ATTENDANT Cardiac Device Check [facility] [place] [facility] [address] [place] [address] Scheduled Procedures Name Priority Associated Diagnoses Date/Ti me CYSTOSCOPY Tier 2: within 30 days R31.29 Other microscopic hematuria 01/12/2025 1:51 PM MEN'S LOCKER ROOM ATTENDANT CYSTOSCOPY BIOPSY central supply aide 2: within 30 days R31.29 Other microscopic hematuria 01/12/2025 1:51 PM MEN'S LOCKER ROOM ATTENDANT Health Maintenance Due Date Last Done Comments [...] Completed 01/19/2023 Medical Devices Implanted Type Area Enamel Shader Device Identifier Shelf Expiration Date Model / Serial / Lot Occluder Meghan 40mm Atriclip Flex V Exclusion Sys - [id number] Implanted:Qty: 1 on 03/10/2024 by Tonja Redman MD at [facility] N/A: Heart [employer] 12/30/2024 [id number] / / [id number] Description:[employer] AtriCli p . SIZE: 40MM. REF: [id number]. LOT: [id number]. Implanted on 03/10/[address] Redman at [facility]. Procedures Procedure Name Priority Date/Time Associated Diagnosis Comments SCAN-RADIOLOGY REPORT 01/05/2025 12:00 AM MEN'S LOCKER ROOM ATTENDANT SCAN-RADIOLOGY REPORT 12/31/2024 12:00 AM CDT ECHO [...] Last 3 Months Results * SCAN-RADIOLOGY REPORT (01/05/2025 12:00 AM MEN'S LOCKER ROOM ATTENDANT) Only the most recent of3 resultswithin the time period is included. Anatomical [...] TASIA Referring MD: LONNIE MARIE Site: [facility] Reading Location: MOBILE IP Patient [...] documentation: 3cc ml diluted Definity, lot #[id number], [facility]# [id number] was administered peripherally to enhance visualization of all left ventricular segments. . This study was interpreted by an [facility] accredited facility. CC: HIM (med records) [facility], Med/Surg - IP [facility]. Final Procedure Note Ubaldo Fontenot MD - 12/29/2024 ECHOCARDIOGRAM MAC YARBROUGH : 1940 84 years Study Date: 12/29/2024 2:54:44 PM Gender: M BP: 122/66 mmHg Height: 170.00 cm BSA: 1.98 m Weight: 87.00 kg Tech: TASIA Referring MD: LONNIE MARIE Site: [facility] Reading Location: MOBILE IP Patient [...] documentation: 3cc ml diluted Definity, lot #[id number], [facility]#[id number] was administered peripherally to enhance visualization of allleft ventricular segments. . This study was interpreted by an [facility] accredited facility. CC: [facility] (med records) [facility], Med/Surg - IP [facility]. Final us Lonnie GIL ECHO ORD [...] - 1.3 mg/dL 12/12/2024 9:30 AM CDT [facility] Blood BLOOD SPECIMEN / Unknown [facility] / Unknown 12/12/2024 9:17 AM CDT 12/12/2024 9:17 AM CDT Louis Cook MD CHEMISTRY Final Resu lt [facility] [address] [place] [address], [place] [phone] [facility] [address] [place] [address], [place] [phone] * (ABNORMAL) URINE ALBUMIN TO CREATININE RATIO, RANDOM (11/21/2024 9:50 AM CDT) ALB RAND URINE 351.0 mg/L 11/21/2024 6:24 PM CDT [facility] CREATININE,URIN E 0.59 g/L 11/21/2024 6:24 PM CDT [facility] ALBUMIN TO CREATININE RATIO,RAND UR 594.9(H) <30.0 mg/g creat 11/21/2024 6:24 PM CDT [facility] Urine URINE SPECIMEN / Unknown Non-Blood / Unknown 11/21/2024 9:50 AM CDT 11/21/2024 10:37 AM CDT Narrative [facility] - 11/21/2024 6:24 PM CDT If Albumin to Creatinine Ratio is elevated, consider the following: Elevations seen with incipient nephropathy associated with diabetes mellitus or hypertension. Stress, exercise,hematuria, and urinary tract infection may also produce elevated results. If clinically indicated, confirm with 24 Hour Albumin to Creatinine Ratio. us Bari Toscano MD URINE Final Result [facility] [address] [place] [address], [place] * METHYLMALONIC ACID BLOOD (11/21/2024 9:29 AM CDT) METHYLMALONIC ACID 98 85 - 423 nmol/L 11/22/2024 5:45 PM CDT [facility] Comment: See Note 1 Serum methylmalonic acid [...] neural tube defects and intrauterine growth restriction. [facility] utilized Multi-Modal Decomposition (MMD) analysis to establish first and second trimester-specific MMA reference intervals in , as given below: MMA, First trimester (<13 wks gestation): 58-167 nmol/L MMA, Second trimester (13-23 wks gestation): 63-241 nmol/L Note 1 This test was developed and its analytical performance characteristics have been determined by [facility]. It has not been cleared or approved by the FDA. This assay has been validated pursuant to the CLIA regulations and is used for clinical purposes. Blood BLOOD SPECIMEN / Unknown [facility] / Unknown 11/21/2024 9:29 AM CDT 11/21/2024 9:29 AM CDT Bari Toscano MD SEND OUTS Final Result [facility] [address] [address], * (ABNORMAL) HEMOGLOBIN A1C MONITORING (POCT) (11/21/2024 9:29 AM CDT) POC HEMOGLOBIN A1C 8.3(H) <6.0 % OF TOTAL HGB 11/21/2024 10:02 AM CDT [facility] Comment: Any point of care results exhibiting inconsistency with the patient's clinical status should be repeated using a different testing method. Blood BLOOD SPECIMEN / Unknown [facility] / Unknown 11/21/2024 9:29 AM CDT 11/21/2024 9:29 AM CDT Bari Toscano MD CHEMISTRY Final Result Performing Organization Address City/[facility]/ZIP Co de Phone Number [facility] [address] [place] [address], [place] [phone] [facility] [address] [place] [address], [place] [phone] * VITAMIN B12 (11/21/2024 8:12 AM CDT) VITAMIN B12 658 200 - 1100 pg/mL 11/22/2024 6:04 AM CDT [facility] Blood BLOOD SPECIMEN / Unknown [facility] / Unknown 11/21/2024 8:12 AM CDT 11/21/2024 8:12 AM CDT Bari Toscano MD CHEMISTRY Final Result Performing Organization Address [facility]/ZIP Co de Phone Number [facility] [address] [place] [address], [place] [phone] * SCAN-ELECTROENCEPHALOGRAM EEG INTERP (11/16/2024 12:00 AM CDT) Scanner OTHER Final Result from Last 3 Months Insurance * Guarantor: Mac Yarbrough Account Type Relation to Patient Date of Phone Billing Address Personal/Family Self 1940 [address] [place] [address] MEDICARE PART A HB ONLY BLUE CROSS MEDICARE ADVANTAGE Advance Directives Documents on File Type Date Recorded Patient Kelp Cutter Expl anation Healthcare Directive 02/10/2024 INVALID , MISS[place] PAGE, 02/10/2024 Power of Physician Advisor 10/19/1996 DURABLE PO WER OF WASHHOUSE WORKER FOR HEALTH CARE, [facility], 10/19/1996 Power of Physician Advisor 10/19/1996 STATUTORY SHORT FORM POWER OF WASHHOUSE WORKER, [facility], 10/19/1996 Healthcare Directive 03/04/1993 HEALTH CARE DECLARATION, [facility], 03/04/1993 * Full Code (Latest [...] 7:00 PM 04/07/2012 3:58 PM Care Teams Chairman & Co Founder Relationship Specialty Start Date End Date Bari Toscano MD [address] [place] [address] PCP - General Family Practice 08/14/13 Pardeep Baird [facility] Surgery - Orthopedics 09/09/12 Rocael Gamez [address] [place] [address] Ophthalmology Surgery 09/09/12 [place] [address] [place] [address] Rheumatology 03/07/24
--- OUTSIDE RECORDS SUMMARY | 2025-01-09 17:42 | XMS_ITS | Clinical Summary ---
Author Organization [facility] Address [address], [place] [address] Care Team Providers Care Category Specialist Name Role Phone Unavailable Primary Care Provider [...] for each transition of care or referral. [facility] Allergies No known active [...]
[2025-01-09 17:47] VITALS: BP 110/64; PULSE 74; RESP 18; TEMP 36.7; O2SAT 100
== END 2025-01-09 19:05 | disposition left against medical advice (07) ==
LOC: ED 19:04
PROVIDERS: PCP Family Medicine
DX: Z53.21 Procedure and treatment not carried out due to patient leaving prior to being seen by health care provider (principal)
CPT/HCPCS: 87106

== ENCOUNTER 2025-01-16 13:56 | Emergency (ER) | payer MEDICARE, SELFPAY ==
[2025-01-16 14:26] VITALS: BP 127/70; PULSE 86; RESP 18; TEMP 36.6; O2SAT 95; BMI 29.0
--- NOTE | 2025-01-16 15:06 | ED.MALEGU ---
HPI - Male Genitourinary General Chief complaint: Urogenital Problems, Male Stated complaint: Catheter issue Time Seen by Provider: 01/16/25 14:36 History of Present Illness HPI Narrative: This 84-year-old male comes in with Rodriguez catheter problems. He was feeling discomfort and distension and then stated that he had release of about 400 mL of urine with some blood clots. He has had a catheter in for the past couple weeks because of an infection at that time. He had the catheter replaced about 4 5 days ago and is due to have it removed tomorrow. He got some relief of his symptoms when the catheter drained but now is complaining of distinct pain at the tip of his penis. He does not report any fevers. Related Data Home Medications ?Medication ?Instructions ?Recorded ?Confirmed apixaban 5 mg tablet (Eliquis) 5 mg PO Q12H 02/15/22 01/09/25 blood sugar diagnostic (True 02/15/22 10/25/24 Metrix Glucose Test Strip) metformin 500 mg tablet,extended 2,000 mg PO QPM 02/15/22 01/09/25 release 24 hr acetaminophen 500 mg capsule 1,000 mg PO BID 07/27/23 01/09/25 tamsulosin 0.4 mg capsule 0.4 mg PO DAILY 07/27/23 01/09/25 empagliflozin 10 mg tablet 10 mg PO DAILY 02/24/24 01/09/25 (Jardiance) glipizide 10 mg tablet, extended 20 mg PO DAILY 02/24/24 01/09/25 release 24 hr metoprolol succinate 25 mg 25 mg PO DAILY 02/24/24 01/09/25 tablet,extended release 24 hr nitroglycerin 0.4 mg sublingual 0.4 mg sublingual Q5M PRN 02/24/24 01/09/25 tablet rosuvastatin 20 mg tablet 20 mg PO QPM 02/24/24 01/09/25 aspirin 81 mg capsule 81 mg PO DAILY 06/11/24 01/09/25 cholecalciferol (vitamin D3) 1,250 1,250 mcg PO Q7D 12/28/24 01/09/25 mcg (50,000 unit) capsule prednisone 5 mg tablet 5 mg PO DAILY 12/28/24 01/09/25 tadalafil 5 mg tablet 5 mg PO HS 12/28/24 01/09/25 Previous Rx's ?Medication ?Instructions ?Recorded furosemide 20 mg tablet 40 mg (2 x 20 mg) PO DAILY@0800 30 01/02/25 days #60 tabs potassium chloride 10 mEq 20 meq (2 x 10 mEq) PO DAILY 30 01/02/25 capsule,extended release days #60 caps cephalexin 500 mg capsule 500 mg PO QID #12 caps 01/05/25 clotrimazole 1 % topical cream 1 applic topical BID 10 days #15 01/05/25 grams fluconazole 150 mg tablet 150 mg PO Q3D 2 doses #2 tabs 01/05/25 Allergies Allergy/AdvReac Type Severity Reaction Status Date / Time No Known Drug Allergies Allergy Verified 01/09/25 17:52 Review of Systems Status of ROS: Reports: 10 or more systems reviewed and unremarkable except as noted in History and below Narrative: Constitutional: No fevers, no weight gain or loss. Eyes: No discharge. No vision changes. HENT: No congestion, no sore throat, no ear pain. Cardiovascular: No chest pain, no palpitations. Respiratory: No shortness of breath, no wheezes, no cough. Gastrointestinal: No abdominal pain, no vomiting, no diarrhea. Genitourinary: Rodriguez catheter in place with some urinary retention and clots. Musculoskeletal: Normal range of motion. Skin: No rashes, no pruritis. Neurological: No dizziness, weakness, sensory change, speech change. Endo/Heme/Allergies: No bruising or bleeding. No polydipsia. Pysch: no suicidality, no anxiety, no insomnia. All other systems reviewed and are negative. 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 (ICD-10) Hypertension ?I10 - Essential (primary) hypertension (ICD-10) BPH without urinary obstruction ?N40.0 - Benign prostatic hyperplasia without lower urinary tract symptoms (ICD-10) Mild cognitive impairment ?G31.84 - Mild cognitive impairment of uncertain or unknown etiology (ICD-10) Prostate cancer ?C61 - Malignant neoplasm of prostate (ICD-10) Mobitz (type) I (Wenckebach's) atrioventricular block ?I44.1 - Atrioventricular block, second degree (ICD-10) Atrial fibrillation ?I48.91 - Unspecified atrial fibrillation (ICD-10) Iron deficiency anemia ?D50.9 - Iron deficiency anemia, unspecified (ICD-10) Erectile dysfunction ?N52.9 - Male erectile dysfunction, unspecified (ICD-10) Displacement of lumbar intervertebral disc without myelopathy ?M51.26 - Other intervertebral disc displacement, lumbar region (ICD-10) Degeneration of lumbar or lumbosacral intervertebral disc ?M51.37 - Other intervertebral disc degeneration, lumbosacral region (ICD-10) Vitamin B12 deficiency ?E53.8 - Deficiency of other specified B group vitamins (ICD-10) Lumbar radiculopathy ?M54.16 - Radiculopathy, lumbar region (ICD-10) 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 - Complete traumatic metacarpophalangeal amputation of unspecified finger, initial encounter (ICD-10) Diabetes ?E11.9 - Type 2 diabetes mellitus without complications (ICD-10) COVID ?U07.1 - COVID-19 (ICD-10) Surgical History S/P CABG x 3 ?Z95.1 - Presence of aortocoronary bypass graft (ICD-10) History of permanent cardiac pacemaker placement ?Z95.0 - Presence of cardiac pacemaker (ICD-10) History of cholecystectomy ?Z90.49 - Acquired absence of other specified parts of digestive tract (ICD-10) History of appendectomy ?Z90.49 - Acquired absence of other specified parts of digestive tract (ICD-10) History of arthroscopy of left shoulder (03/21/96) ?Z98.890 - Other specified postprocedural states (ICD-10) History of arthroscopy of right shoulder (11/26/11) ?Z98.890 - Other specified postprocedural states (ICD-10) S/P ORIF (open reduction internal fixation) fracture (04/05/14) ?Z98.890 - Other specified postprocedural states (ICD-10) ?Z87.81 - Personal history of (healed) traumatic fracture (ICD-10) Family History Mother Bowel cancer Social History What is your current living situation?: I presently have a place to live Problems where you live: no known problems Problems where you live details: no known problems In the past 12 months, utilities in danger of being shut off: no In past 12 months, lack of transportation kept you from medical appts, meetings, work, or getting things needed for daily living: no In the past 12 mos, have been you worried that your food would run out before you had money to buy more?: never true In the past 12 mos, the food you bought just didn't last and you didn't have money to buy more?: never true Highest level of school completed/degree received: Bachelor's degree Smoking Status: Former smoker Do you use any of these nicotine containing products: None Second hand tobacco smoke exposure: Yes How often do you have a drink containing alcohol: 4 or more times a week How many standard drinks containing alcohol do you have on a typical day: 1 or 2 AUDIT-C Alcohol total score: 4 Non-prescribed substance use: denies use Caffeine: No How often does anyone, including family, friends and others, physically hurt you: never How often does anyone, including family, friends and others, insult or talk down to you: never How often does anyone, including family, friends and others, threaten you with harm: never How often does anyone, including family, friends and others, scream or curse at you: never service: No Exam Narrative: Exam Narrative: Constitutional: Well-developed, well-nourished, no acute distress. HEENT: Normocephalic, atraumatic. Neck: Normal range of motion. Nontender. Supple. Heart: Intact distal pulses. Lungs: No chest discomfort. No wheezes, rhonchi, or rales. Abdomen: Nontender. Distinct pain at the tip of his penis. No sign of leaking around the catheter. Back: Normal range of motion. Extremities: Normal range of motion. No injury. Skin: Intact. No rash. Warm. No erythema or pallor. Neurologic: No altered sensation. No weakness. Alert and oriented. Psychiatric: No suicidality. No anxiety or depression. No insomnia. Nursing notes and vitals signs are reviewed. Const: Vital Signs, click to edit/add: Vital Signs - 24 hr 01/16/25 14:26 Temperature 97.9 F Pulse Rate [Right Pulse Oximeter] 86 Respiratory Rate 18 Blood Pressure [Ri ght Upper Arm] 127/70 Pulse Oximetry 95 Oxygen Delivery Me thod Room Air Course Vital Signs Vital signs: Initial Vital Signs Temperature 97.9 F 01/16/25 14:26 Temperature Source Temporal Artery Scan 01/16/25 14:26 Pulse Rate 86 01/16/25 14:26 Respiratory Rate 18 01/16/25 14:26 Blood Pressure 127/70 01/16/25 14:26 Blood Pressure Mean 89 01/16/25 14:26 Blood Pressure Position Sitting 01/16/25 14:26 Pulse Oximetry 95 01/16/25 14:26 Oxygen Delivery Method Room Air 01/16/25 14:26 Vital Signs Temperature 97.9 F 01/16/25 14:26 Pulse Rate 86 01/16/25 14:26 Respiratory Rate 18 01/16/25 14:26 Blood Pressure 127/70 01/16/25 14:26 Pulse Oximetry 95 01/16/25 14:26 Oxygen Delivery Method Room Air 01/16/25 14:26 Temperature 97.9 F 01/16/25 14:26 Pulse Rate 86 01/16/25 14:26 Respiratory Rate 18 01/16/25 14:26 Blood Pressure 127/70 01/16/25 14:26 Pulse Oximetry 95 01/16/25 14:26 Oxygen Delivery Method Room Air 01/16/25 14:26 MDM - Male Genitourinary MDM Narrative Medical decision making narrative: This patient comes in with Rodriguez catheter problem. He does have some blood clots and felt like he was retaining urine despite a Rodriguez catheter in place. He is on Eliquis currently and his states that he did not take his dose yesterday evening but did this morning. On his way here he did have a breakthrough of release of urine and had some relief. There was about 400 mL that came into the bag which included several clots. After arrival here he was complaining of pain at the tip of his penis. I instructed the nurse to to irrigate his bladder through the Rodriguez catheter. This brought relief to his symptoms and there were about 10-12 clots that were discharged through this irrigation process. The patient is now feeling back to normal and continues with the same catheter in place a. He has a follow-up appointment tomorrow where the plan was to remove the catheter and a trial of urinating. He can continue this plan. I did advise him regarding returning if there is any further sign of Rodriguez catheter problem or urinary retention. Discharge Plan Discharge Clinical Impression: Complication, blocked Rodriguez catheter Patient Disposition: Home, Self-Care Condition: Improved Additional Instructions: Continue with current plans. Follow up with clinic tomorrow as scheduled. Return if Rodriguez catheter is not functioning properly. Prescriptions: No Action tamsulosin 0.4 mg capsule 0.4 mg PO DAILY acetaminophen 500 mg capsule 1,000 mg PO BID glipizide 10 mg tablet extended release 24hr 20 mg PO DAILY nitroglycerin 0.4 mg tablet, sublingual 0.4 mg sublingual Q5M PRN metoprolol succinate 25 mg tablet extended release 24 hr 25 mg PO DAILY rosuvastatin 20 mg tablet 20 mg PO QPM Jardiance 10 mg tablet 10 mg PO DAILY fluconazole 150 mg tablet 150 mg PO Q3D Qty: 2 0RF cephalexin 500 mg capsule 500 mg PO QID Qty: 12 0RF clotrimazole 1 % cream 1 applic topical BID 10 Days Qty: 15 0RF (DME) True Metrix Glucose Test Strip Strip MISCELLANEOUS Patient Comments: TEST 2 TIMES PER WEEK. metformin 500 mg tablet extended release 24 hr 2,000 mg PO QPM Patient Comments: TAKE 4 TABLETS (2,000 MG) BY MOUTH ONCE DAILY WITH EVENING MEAL. Eliquis 5 mg tablet 5 mg PO Q12H Patient Comments: TAKE 1 TABLET (5 MG) BY MOUTH TWO TIMES DAILY. aspirin 81 mg capsule 81 mg PO DAILY cholecalciferol (vitamin D3) 1,250 mcg (50,000 unit) capsule 1,250 mcg PO Q7D prednisone 5 mg tablet 5 mg PO DAILY tadalafil 5 mg tablet 5 mg PO HS potassium chloride 10 mEq Capsule, Extended Release 20 meq PO DAILY 30 Days Qty: 60 0RF furosemide 20 mg Tablet 40 mg PO DAILY@0800 30 Days Qty: 60 0RF Follow Up/Referrals: Bari Toscano MD [Primary Care Provider, Family Practice] Stand Alone Forms: Invarium Info Instructions
== END 2025-01-16 16:31 | disposition home or self-care (01) ==
PROVIDERS: Emergency Provider Emergency Medicine Emergency Medical Services; PCP Family Medicine
DX: T83.091A Other mechanical complication of indwelling urethral catheter, initial encounter (principal); R33.9 Retention of urine, unspecified; R31.9 Hematuria, unspecified; Z79.01 Long term (current) use of anticoagulants; Y84.6 Urinary catheterization as the cause of abnormal reaction of the patient, or of later complication, without mention of misadventure at the time of the procedure
CPT/HCPCS: 99283; 99284

== ENCOUNTER 2025-01-24 20:22 | Emergency (ER) | payer MEDICARE, SELFPAY ==
--- OUTSIDE RECORDS SUMMARY | 2025-01-24 20:25 | XMS_ITS | Continuity of Care Document ---
Author Organization [facility], [facility] Address [address] [place] [address] Care Team Providers Care Glass Sagger Name Role Phone LINDSAY SANFORD Referring Provider Assessment No assessment recorded. Plan of Treatment Reminders Order Date Submit Date Provider Last Modified By Organization Details Last Modified Time Details Appointments PSA 10 2025 01:30P M [facility] Not available Not available Not available ESTABLIS HED 10 2025 01:50P M Louis Cook MD Not available Not available Not available Lab urinalys is, dipstick 2024 025 [email or web address] [facility], [address], [place], [address], 11/10/2024 11:19:26 culture, urine [address] [facility], [address], [place], [address], 11/11/2024 10:45:08 Referral None recorded . Procedures None recorded . Surgeries None recorded . Imaging None recorded . Medication Orders None recorded . Patient TargetsNo targets recorded. Patient InstructionsNo instructions recorded. Reason for Referral None Reported. Results Created Date Observation Date Name Description Value Unit Range Abnormal Flag Note LastModifiedBy Organization Detail LastModifiedTime 11/11/1911/10/2024 URINE CULTU RE final report MICROB IOLOGY RESULT S SOURC E Void KNOWN ALLER NILS NKDA TREAT MENT n/a MEDIA PLATE D [...] for provi gricelda revie w. Not Available [facility] [address], [place], [address], 11/11/2024 10:45:08 11/11/1911/10/2024 urina lysis , dipst ick BLOOD Large (250 RBC/uL ) Not Available [facility] [address], [place], [address], 11/10/2024 11:17:20 11/11/19 25 11/10/2024 urina lysis , dipst ick NITRITES Negati ve Not Available [facility] [address], [place], [address], 11/10/2024 11:17:20 11/11/19 25 11/10/2024 urina lysis , dipst ick LEUKOCYTES Small (25 WBC/uL ) Not Available [facility] [address], [place], [address], 11/10/2024 11:17:20 12/14/19 25 12/12/2024 CT, urogr am No observ ation record ed. [facility] [address], [place], [address], 12/18/2024 14:28:50 Result Notes None recorded. Procedures Surgical History Date Name Laterality Status Provider Name and Address Organization Details Recorded Time 5 Fill and Pull/Voiding Trial/TOV completed Meli Rowan [place] - [facility] 01/17/2025 13:12:18 5 Cystoscopy- male completed Louis Cook MD [address], [place], [address], [facility] 12/26/2024 19:09:00 5 Keflex post Cysto completed Carlos Enrique falcon [facility] 12/26/2024 13:31:05 5 Urinalysis completed Carlos Enrique Faganal-Cande ro [facility] 12/26/2024 13:30:59 5 INTELLIGENCE AGENT/blood draw completed Carlos Enrique Faganal-Cande ro [facility] 12/05/2024 12:14:49 5 Bladder Scan completed Louis Cook MD [address] [place] [address],[address], [place], [address], [facility] 12/05/2024 12:32:40 5 Urine Culture completed Meli Rowan [facility] 11/10/2024 11:16:59 5 Urinalysis completed Meli Rowan [facility] 11/10/2024 11:16:57 5 Urine Culture completed Anastasiia Ingram [facility] 09/25/2024 12:27:34 5 Urinalysis completed Anastasiia Ingram [facility] 09/25/2024 11:46:34 5 Bladder Scan completed Anastasiia Ingram [facility] 09/25/2024 11:46:26 5 Blood Draw/INTELLIGENCE AGENT/PSA RESULTS completed Louis Cook MD [address] [place] [address],[address], [place], [address], [facility] 05/30/2024 12:41:37 4 Blood Draw/INTELLIGENCE AGENT/PSA RESULTS completed Carlos Enrique falcon [facility] 10/11/2023 10:18:27 3 Heart Surgery completed Louis Cook MD [address], [place], [address], [facility] 09/28/2022 16:37:35 procedure on spine completed Louis Cook MD [address], [place], [address], [facility] 09/28/2022 16:37:23 CYSTOSCOPY (SURG) completed Danay Lara [facility] 01/15/2025 15:17:54 Imaging Results None recorded. Procedure Notes None [...] hours by oral route for 7 days. 01/15 completed Not Available Not Available Not Available [...] Smoking Status Former Smoker Louis Cook MD [address],[facility] [address], [place], [address], [facility] - [facility] 09/28/2022 16:37:00 What Is Your Level [...] quadrivalent, PF 3 completed Louis Cook MD [address] [place] [address],[address], [address], [facility] 04/26/2023 10:59:30 RSV, recombinant, protein subunit RSVpreF, adjuvant reconstituted, 0.5 mL, PF 3 completed Louis Cook MD [address] [place] [address],[address], [address], [facility] 04/26/2023 10:59:31 COVID-19, mRNA, LNP-S, PF, 50 mcg/0.5 mL 3 completed Louis Cook MD [address], [place], [address], [facility] 04/26/2023 10:59:31 COVID-19, mRNA, LNP-S, PF, 50 mcg/0.5 mL 4 completed Not Available [facility] 12/26/2024 13:30:47 COVID-19, mRNA, LNP-S, PF, 50 mcg/0.5 mL 4 completed Not Available [facility] 12/26/2024 13:30:47 Influenza, adjuvanted, trivalent, PF 4 completed Not Available [facility] 12/26/2024 13:30:47 COVID-19, mRNA, LNP-S, PF, 50 mcg/0.5 mL 5 completed Not Available Count includes the [facility] 12/26/2024 13:30:47 IPV 2 completed Susana Allar null, [facility] 01/25/2023 09:28:19 Influenza, adjuvanted, trivalent, PF 7 completed Susana Allar null, [facility] 01/25/2023 09:28:19 Influenza, adjuvanted, trivalent, PF 9 completed Susana Allar null, [facility] 01/25/2023 09:28:19 Influenza, adjuvanted, trivalent, PF 8 completed Susana Allar null, [facility] 01/25/2023 09:28:19 zoster recombinant 0 completed Susana Allar null, [facility] 01/25/2023 09:28:19 zoster recombinant 9 completed Susana Allar null, [facility] 01/25/2023 09:28:19 Influenza, adjuvanted, quadrivalent, PF 0 completed Susana Allar null, [facility] 01/25/2023 09:28:19 Influenza, adjuvanted, quadrivalent, PF 2 completed Susana Allar null, [facility] 01/25/2023 09:28:19 Influenza, adjuvanted, quadrivalent, PF 1 completed Susana Allar null, [facility] 01/25/2023 09:28:19 COVID-19, mRNA, LNP-S, PF, 100 mcg/0.5mL dose or 50 mcg/0.25mL dose 1 completed Susana Allar null, [facility] 01/25/2023 09:28:19 COVID-19, mRNA, LNP-S, PF, 100 mcg/0.5mL dose or 50 mcg/0.25mL dose 1 completed Susana Allar null, [facility] 01/25/2023 09:28:19 COVID-19, mRNA, LNP-S, PF, 100 mcg/0.5mL dose or 50 mcg/0.25mL dose 1 completed Susana Allar null, [facility] 01/25/2023 09:28:19 Pneumococcal conjugate PCV20, polysaccharide [id number] conjugate, adjuvant, PF 3 completed Susana Allar null, [facility] 01/25/2023 09:28:19 COVID-19, mRNA, LNP-S, PF, 30 mcg/0.3 mL dose, octavia-sucrose 2 completed Susana Allar null, [facility] 01/25/2023 09:28:19 COVID-19, mRNA, LNP-S, bivalent, PF, 50 mcg/0.5 mL or 25mcg/0.25 mL dose 3 completed Sus[facility] Allar null, [facility] 01/25/2023 09:28:19 COVID-19, mRNA, LNP-S, bivalent, PF, 50 mcg/0.5 mL or 25mcg/0.25 mL dose 2 completed Susana Allar null, [facility] 01/25/2023 09:28:19 pneumococcal polysaccharide PPV23 6 completed Susana Allar null, [facility] 01/25/2023 09:28:19 pneumococcal polysaccharide PPV23 6 completed Susana Allar null, [facility] 01/25/2023 09:28:19 Tdap 1 completed Susana Allar null, [facility] 01/25/2023 09:28:19 Tdap 1 completed Susana Allar null, [facility] 01/25/2023 09:28:19 Pneumococcal conjugate PCV 13 5 completed Susana Allar null, [facility] 01/25/2023 09:28:19 yellow fever live 2 completed Susana Allar null, [facility] 01/25/2023 09:28:19 yellow fever live 1 completed Susana Allar null, [facility] 01/25/2023 09:28:19 zoster live 7 completed Susana Allar null, [facility] 01/25/2023 09:28:19 Influenza, high-dose, trivalent, PF 4 completed Susana Allar null, [facility] 01/25/2023 09:28:19 Influenza, high-dose, trivalent, PF 6 completed Susana Allar null, [facility] 01/25/2023 09:28:19 Influenza, high-dose, trivalent, PF 5 completed Susana Allar null, [facility] 01/25/2023 09:28:19 Influenza, split virus, trivalent, preservative 2 completed Susana Allar null, [facility] 01/25/2023 09:28:19 Influenza, split virus, trivalent, preservative 1 completed Susana Allar null, [facility] 01/25/2023 09:28:19 Influenza, split virus, trivalent, preservative 6 completed Susana Allar null, [facility] 01/25/2023 09:28:19 Influenza, split virus, trivalent, preservative 4 completed Susana Allar null, [facility] 01/25/2023 09:28:19 Influenza, split virus, trivalent, preservative 3 completed Susana Allar null, [facility] 01/25/2023 09:28:19 Influenza, split virus, trivalent, preservative 0 completed Susana Allar null, [facility] 01/25/2023 09:28:19 Influenza, split virus, trivalent, preservative 7 completed Susana Allar null, [facility] 01/25/2023 09:28:19 Influenza, split virus, trivalent, preservative 5 completed Susana Allar null, [facility] 01/25/2023 09:28:19 Td (adult), 5 Lf tetanus toxoid, preservative free, adsorbed 5 completed Susana Allar null, [facility] 01/25/2023 09:28:19 typhoid, ViCPs 2 completed Susana Allar null, [facility] 01/25/2023 09:28:19 typhoid, ViCPs 1 completed Susana Allar null, [facility] 01/25/2023 09:28:19 Hep A-Hep B 2 completed Susana Allar null, [facility] 01/25/2023 09:28:19 Hep A-Hep B 2 completed Susana Allar null, [facility] 01/25/2023 09:28:19 Hep A-Hep B 2 completed Susana Allar null, [facility] 01/25/2023 09:28:19 Past Encounters Encounter ID Performer Location Encounter Start Date Encounter Closed Date Diagnosis/Indication Diagnosis SNOMED-CT Code Diagnosis ICD10 Code Diagnosis IMO Codes Diagnosis Note [id number] ANTOINE RAMOS PA-C [facility] [address] [phone] 11/10/2024 10:42:48 11/17/2024 15:53:02 Urinary symptoms 527211386 R39.9 [id number] Health Concerns Section Related Observation LastModified by Organization Detai ls LastModified Time None Recorded Concern Status LastModified by Organization Details LastModified Time None Recorded Payers Encounter Date Sequence Insurance Name Policy Number Policy Sam Covered Member ID Sam Member ID Guarantor Name 11/10/2024 1 [place]) [id number] Enrike Coleman [id number] Enrike Coleman Notes Date Note Type Note Provider Name and Address Organization Details Recorded Time 11/10/2024 text/html Bill is here for [facility] and [facility]- see triage note for Sx detailsNurse visit completed by Meli Sanchez RN. NATALIE Godoy - [facility] 11/10/2024 11:19:56
--- OUTSIDE RECORDS SUMMARY | 2025-01-24 20:25 | XMS_ITS | Clinical Summary ---
Author Organization [employer] [facility] Address [address] [place] [address] Care Team Providers Care Information Technology Security Manager Name Role Phone Pardeep Baird [facility] Unavailable + Rocael Gamez Unavailable Bari Toscano MD Primary Care Provider Hudson Valle MD Unavailable [phone] Allergies No known active allergies Medications nitroglycerin (NITROSTAT) 0.4 mg sublingual tabletIndication s:Abnormal [...] bedtime. 90 Tablet 3 04/24/19 25 Active triamcinolone 0.1 % [...] EVERY TWO WEEKS. 100 Tablet 2 11/22/19 25 Active Additional Information Patient taking differently: TAKE 3 TABLETS BY MOUTH DAILY FOR TWO WEEKS, THEN IF TOLERATED REDUCE BY 1 TABLET (1 MG) EVERY TWO WEEKS.Back on 5 MG, Reported on 01/10/2025 vibegron (GEMTESA) 75 mg tabletIndication s:OAB (overactive [...] mouth once daily. 90 Tablet 1 11/23/19 25 Active Additional Information Patient taking differently:10 mg Oral DAILY,Unsure of dose, Reported on 01/12/2025 blood sugar diagnostic (True Metrix Glucose Test Strip) stripIndications :Type 2 diabetes mellitus without complication, without long-term current use of insulin (HC) TEST 2 TIMES PER WEEK. 50 Each 3 11/25/19 25 Active oxyCODONE-acetam inophen (PERCOCET) 5-325 mg per tabletIndication s:Post-operative state Take 1 Tablet by mouth every 6 hours if needed for Pain. Max acetaminophen dose: 4000mg in 24 hrs. 6 Tablet 5 4:06 PM COMBINATION OPERATOR 01/13/20 25 Active hyoscyamine sublingual (LEVSIN SL) 0.125 mg sublIndications: Post-operative state Place 1 Tablet (0.125 mg) under the tongue every 4 hours if needed for Bladder Spasms. 12 Tablet 5 4:06 PM COMBINATION OPERATOR 01/13/20 25 Active finasteride (PROSCAR) 5 mg tabletIndication s:Benign prostatic hyperplasia with incomplete bladder emptying Take 1 Tablet (5 mg) by mouth once daily in the morning. 30 Tablet 11 5 4:06 PM COMBINATION OPERATOR 01/13/20 25 Active lancetsIndicatio ns:Type 2 diabetes mellitus without complication, without long-term current use of insulin (HC) Test 2 times per week. Dispense items covered by patient's insurance. 50 Each 3 01/23/20 25 Active lancets (Microlet Lancet)Indicatio ns:Type 2 diabetes mellitus without complication, without long-term current use of insulin (HC) Dispense item covered by pt ins. 250.00 NIDDM type II - Test twice a week 50 Each 3 12/26/19 21 025 Discontinu ed(Duplica te therapy (E-cancel not sent)) tamsulosin 0.4 mg capsuleIndicatio ns:BPH without urinary obstruction Take 1 Capsule (0.4 mg) by mouth once daily after a meal. 90 Capsule 3 04/24/19 25 025 Discontinu ed(*Patien t states no longer taking) glipiZIDE extended-release (GLUCOTROL XL) 10 mg Extended-Release tabletIndication s:Type 2 diabetes mellitus without complication, without long-term current use of insulin (HC) Take 2 Tablets (20 mg) by mouth once daily before a meal. 180 Tablet 1 11/23/19 25 025 Discontinu ed(*Medica tion adjustment ) tadalafiL (CIALIS) 5 mg tablet Take 5 mg by mouth once daily. 12/06/19 025 Discontinu ed(*Med complete/R egimen complete/L evel of care change) cephalexin 500 mg capsule Take 1 Capsule by mouth every 6 hours. 01/06/20 025 glipiZIDE extended-release (GLUCOTROL XL) 10 mg Extended-Release tabletIndication s:Type 2 diabetes mellitus without complication, without long-term current use of insulin (HC) Take 1 Tablet (10 mg) by mouth once daily before a meal. 01/09/20 025 Discontinu ed(*Patien t states no longer taking) cefuroxime axetil (CEFTIN) 250 mg tabletIndication s:Post-operative state Take 1 Tablet (250 mg) by mouth two times daily for 7 days. 14 Tablet 5 4:06 PM COMBINATION OPERATOR 01/13/20 025 fluconazole (DIFLUCAN) 100 mg tabletIndication s:Post-operative state Take 1 Tablet (100 mg) by mouth once daily for 10 days. 10 Tablet 5 4:06 PM COMBINATION OPERATOR 01/13/20 025 Active Problems Problem Noted Date Diagnosed Date [...] Cervical spondylosis 01/10/2024 Neuropathy 01/10/2024 HFrEF; EF 40 to 45% December 29, 2024 12/30/2023 Mild cognitive impairment 06/09/2023 PMR (polymyalgia [...] Encounters Date Type Department Care Team Description 01/19/2025 Refill [facility] [address] [place] [address] Bari Toscano MD Refill Request (Trueplus Lancets) 01/19/2025 Telephone [facility] [address] [place] [address] Bari Toscano MD Referral (cataract surgery) 01/17/2025 Orders Only [facility] Scanner 1 scan: (1-Ord) [facility], FILL AND PULL/VOIDING TRIAL/TOV, 01/17/2025 01/12/2025 2:07 PM COMBINATION OPERATOR Anesthesia Event [facility] [address] [place] [address] Rakehs Triplett MD Leech, Jeffrey Alan II, WILLIAM 01/12/2025 2:03 PM COMBINATION OPERATOR - 01/12/2025 3:06 PM COMBINATION OPERATOR Surgery [facility] [address] [place] [address] Louis Cook MD Cystoscopy, biopsy bladder 01/12/2025 11:36 AM COMBINATION OPERATOR - 01/12/2025 4:17 PM COMBINATION OPERATOR Hospital Encounter [facility] [address] [place] [address] Louis Cook MD Post-operative state (Primary Dx); Benign prostatic hyperplasia with incomplete bladder emptying Discharge Disposition: Home Self Care 01/12/2025 Travel 01/10/2025 1:40 PM COMBINATION OPERATOR Office Visit [facility] [address] [place] [address] Bari Toscano MD ER Follow up ([facility], 01/08/2025, weakness) 01/10/2025 Travel 01/08/2025 11:20 AM COMBINATION OPERATOR Office Visit [facility] [address] [facility] [address] Bari Toscano MD Preoperative Exam (DOS: 01/12/2025, CYSTOSCOPY BIOPSY BLADDER, Dr. Cook, ANW/DOS: 01/23/2025 and 2025, cataract, Dr. Naik, [facility]); Hospital F/U ([facility], 12/28/2024 - 01/02/2025, septic UTI); ER Follow up ([facility], 01/05/2025, fungal infection around catheter ) 01/08/2025 Orders Only [facility] Scanner 1 scan: (1-Ord) [facility], CHEST 2V, 01/08/2025 01/08/2025 Orders Only [facility] Scanner 1 scan: (1-Ord) [facility], XR ABD 1VIEW, 01/08/2025 01/08/2025 Orders Only [facility] Scanner 1 scan: (1-Ord) [facility], 01/08/2025 01/08/2025 Orders Only [facility] Scanner 1 scan: (1-Ord) [facility], MULTIPLE LABS , 01/08/2025 01/08/2025 Orders Only [facility] Scanner 1 scan: (1-Ord) [facility], XR CHEST 2V, 01/08/2025 01/08/2025 Travel 01/05/2025 Orders Only [facility] Scanner 1 scan: (1-Ord) [facility], CHEST 1V PORTABLE, 01/05/2025 01/02/2025 Nurse Triage [facility] [address] [facility] [address] Bari Toscano MD Urinary Problem 12/31/2024 Orders Only [facility] Scanner 1 scan: (1-Ord) [facility], XR CHEST 1V PORTABLE , 12/31/2024 12/29/2024 4:00 PM CDT Ancillary Procedure [facility] [address] [place] [address] 12/28/2024 Orders Only [facility] Scanner 1 scan: (1-Ord) [facility], CHEST ABDOMEN PELV W/ CONTRAST, 12/28/2024 12/28/2024 Orders Only [facility] Scanner 1 scan: (1-Ord) [facility], XR CHEST 1V PORTABLE , 12/28/2024 12/26/2024 Orders Only [facility] Scanner 1 scan: (1-Ord) [facility], CYSTOSCOPY, 12/26/2024 12/12/2024 9:10 AM CDT Ancillary Procedure [facility] [address] [place] [address] 12/12/2024 8:15 AM CDT Orders Only [facility] [address] [place] [address] Lab, [place] <No scans attached> 12/11/2024 9:00 AM CDT Office Visit [facility] [place] [id number] [place] [address] [address] [place] [address] Melanie Garcia PA Follow Up (6 month [...] Travel 12/05/2024 Transcribe Orders [facility] [place] [phone] Louis Cook MD 11/22/2024 Refill [facility] [address] [place] [address] aBri Toscano MD Refill Request (True Metrix Glucose Test Strip) 11/22/2024 Orders Only [facility] [address] [place] [address] Bari Toscano MD <No scans attached> 11/21/2024 8:25 AM CDT Office Visit [facility] [address] [place] [address] Bari Toscano MD Follow Up 11/21/2024 Refill [facility] [address] [place] [address] Bari Toscano MD Refill Request (Metformin, Glipizide Extended-release) 11/20/2024 4:00 PM CDT Office Visit [facility] [address] [place] [address] Erik Hahn MD Follow Up (excisional debridement of unhealing traumatic scalp laceration) 11/20/2024 Travel 11/16/2024 Orders Only [facility] Scanner 1 scan: (1-Ord) [facility] 11/16/2024 Refill [facility] [address] [place] [address] Bari Toscano MD Refill Request (Metformin, Jardiance) 11/14/2024 Refill [facility] [address] [place] [address] Bari Toscano MD Refill Request (Glipizide Extended-release) 11/09/2024 Telephone [facility] [address] [place] [address] Sheldon Enriquez RN 11/06/2024 3:15 PM CDT Office Visit [facility] [address] [place] [address] Erik Hahn MD Follow Up (Excisional debridement of left posterior scalp and right mid thigh abscess 10/25/24) 11/06/2024 Travel 10/24/2024 Transcribe Orders Customer Experience [facility] [phone] America Lim PA-C from Last 3 Months Immunizations Immunization Administration [...] have a drink containing alcohol ? 0 01/10/2025 How many drinks containing a lcohol do you have on a typical day when you are drinking? 0 01/10/2025 How often do you have five or more drinks on one occasion? 0 01/10/2025 Financial Resource Strain Answer Date R ecorded [...] on file Legal Sex Male 5:25 AM COMBINATION OPERATOR Gender Identity Not on file Sexual Orientation Not on file Obstetrics History Last Filed Vital Signs Vital Sign Reading Time Taken Comments Blood Pressure 119/71 01/12/2025 3:30 PM COMBINATION OPERATOR Pulse 69 01/12/2025 3:45 PM COMBINATION OPERATOR Temperature 36.6 C (97.9 F) 01/12/2025 2:45 PM COMBINATION OPERATOR Respiratory Rate 16 01/12/2025 3:45 PM COMBINATION OPERATOR Oxygen Saturation 98% 01/12/2025 3:45 PM COMBINATION OPERATOR Inhaled Oxygen Concentration - - Weight 81.6 kg (180 lb) 01/12/2025 12:56 PM COMBINATION OPERATOR Height 175.3 cm (5' 9) 01/12/2025 12:56 PM COMBINATION OPERATOR Body Mass Index 26.58 01/12/2025 12:56 PM COMBINATION OPERATOR Plan of Treatment Upcoming Encounters Date Type Department Care Team (Late st Contact Info) Description 02/06/2025 1:00 PM COMBINATION OPERATOR Cardiac Device Check [facility] [place] [facility] [address] [place] [address] Health Maintenance Due Date Last Done Comments Influenza Vaccine (#1) 2024 , 11/10/2021, 12/09/2020, Additional history exists Medicare Wellness for age 65+ 06/03/2025, 06/09/2023, 06/12/2022, Additional history exists Depression screening for age 12+ 06/05/2025 06/05/2024, 06/05/2024, 06/05/2024, Additional history exists BMI (ht and wt on same day) for age 18+ 01/10/2026 01/10/2025, 01/08/2025, 12/11/2024, Additional history exists Tetanus booster 06/11/2030 06/11/2020, 04/29, 10/22/2006, Additional history exists Hepatitis B series for 19+ Completed 10/24, 06/21/2001, 05/20/2001 Zoster (shingles) series for age 50+ Completed 03/06/2019, 12/14/2018, 11/17/2006 Pneumococcal series for age 50+ Completed 03/27/2022, 09/21/2014, 12/03/2005, Additional history exists RSV vaccine for adults or Completed 01/19/2023 Medical Devices Implanted Type Area Customs Entry Writer Device Identifier Shelf Expiration Date Model / Serial / Lot Occluder Meghan 40mm Atriclip Flex V Exclusion Sys - [id number] Implanted:Qty: 1 on 03/10/2024 by Tonja Redman MD at [facility] N/A: Heart [employer] 12/30/2024 [id number] / / [id number] Description:[employer] AtriCli p . SIZE: 40MM. REF: [id number]. LOT: [id number]. Implanted on 03/10/[address] Redman at [facility]. Procedures Procedure Name Priority Date/Time Associated Diagnosis Comments SCAN-OPERATIVE/PROCED URE REPORT 01/17/2025 12:00 AM COMBINATION OPERATOR PATH TISSUE EXAM Today 01/12/2025 2:24 PM COMBINATION OPERATOR SUPRAGLOTTIC-LMA Routine 01/12/2025 2:17 PM COMBINATION OPERATOR CYSTOSCOPY BIOPSY building equipment inspector 2: within 30 days 01/12/2025 1:49 PM COMBINATION OPERATOR R31.29 Other microscopic hematuria GLUCOSE METER Timed 01/12/2025 12:29 PM COMBINATION OPERATOR SCAN-ELECTROCARDIOGRA M EKG 01/08/2025 12:00 AM COMBINATION OPERATOR SCAN-LABORATORY REPORT 01/08/2025 12:00 AM COMBINATION OPERATOR SCAN-RADIOLOGY REPORT 01/08/2025 12:00 AM COMBINATION OPERATOR SCAN-RADIOLOGY REPORT 01/08/2025 12:00 AM COMBINATION OPERATOR SCAN-RADIOLOGY REPORT 01/08/2025 12:00 AM COMBINATION OPERATOR SCAN-RADIOLOGY REPORT 01/05/2025 12:00 AM COMBINATION OPERATOR SCAN-RADIOLOGY REPORT 12/31/2024 12:00 AM CDT ECHO TTE COMPLETE W CONTRAST Routine 12/29/2024 3:35 PM CDT HFrEF (heart failure with reduced ejection fraction) (HC) Elevated troponin Fluid overload SCAN-CT INTERPRETATION 12/28/2024 12:00 AM CDT SCAN-RADIOLOGY REPORT 12/28/2024 12:00 AM CDT SCAN-OPERATIVE/PROCED URE REPORT 12/26/2024 12:[address] ABDOMEN [...] 11/21/2024 8:12 AM CDT Vitamin B12 deficiency SCAN-ELECTROENCEPHALO GRAM EEG INTERP 11/16/2024 12:00 AM CDT from Last 3 Months Results * SCAN-OPERATIVE/PROCEDURE REPORT (01/17/2025 12:00 AM COMBINATION OPERATOR) us Scanner OTHER Final Result * PATH TISSUE EXAM (01/12/2025 2:24 PM COMBINATION OPERATOR) Case Report Pathology Report Case: [id number] Authorizing Provider: Louis Cook MD Collected: 01/12/2025 1424 Ordering Location: [facility] Received: 01/12/2025 1445 [facility] Pathologist: Lorena Kohler MD Specimen: Bladder Biopsy 01/16/2025 12:04 PM COMBINATION OPERATOR [facility] Final Diagnosis A) URINARY BLADDER, POSTERIOR WALL, BIOPSY: 1. 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 Muscularis propria: Present 3. Negative for in-situ and invasive malignancy 01/16/2025 12:04 PM COMBINATION OPERATOR [facility] at 1204 COMBINATION OPERATOR Comment Case seen in consultation with Dr. Goncalves. 01/16/2025 12:04 PM COMBINATION OPERATOR [facility] Clinical Information 84-year-old gentleman with a history of prostate cancer (cT1c - [place] 3+3=6, currently on expectant management). He has had trouble with intermittent gross hematuria over the last month. CT urogram on 12/12/2024 shows no renal mass, hydronephrosis, or filling defects. There are 3 (1 mm) stones in the right kidney. There is diffuse bladder wall thickening and enlarged prostate. Office cystoscopy on 12/26/2024 showed marked trabeculation of the bladder, but poor visibility due to hematuria. Cytoscopy findings on 01/12/2025: 1 to 2+ lateral enlargement of the prostate with marked varices (causing bleeding). Inspection of the bladder reveals 2+ trabeculation. No obvious tumors were seen. There is some erythema and edema in the upper posterior wall of the bladder. This area was biopsied. PSA 12/26/24: 13.7 ng/mL 01/16/2025 12:04 PM COMBINATION OPERATOR [facility] Gross Description A) Received fresh labeled with the patient's name and bladder biopsy, are 2 fragments (0.4 and 0.5 cm in greatest dimension) of garcia-pink focally hyperemic soft tissue, entirely submitted in 1 cassette. ADW 01/12/2025 01/16/2025 12:04 PM COMBINATION OPERATOR [facility] Microscopic Description The final diagnosis is based on microscopic examination of appropriate sections of all specimens. 01/16/2025 12:04 PM COMBINATION OPERATOR [facility] Additional Information Interpreted at [facility] - [address], [place] [address] 01/16/2025 12:04 PM COMBINATION OPERATOR [facility] Biopsy (Bladder Biopsy) 01/12/2025 2:24 PM COMBINATION OPERATOR 01/12/2025 2:45 PM COMBINATION OPERATOR Louis Cook MD PATHOLOGY/CYTOLOGY Final R esult [facility] [address] [place] [address], [place] * HCHG MASK PR5 (01/12/2025 2:17 PM COMBINATION OPERATOR) Narrative Krunal Wu CRNA - 01/12/2025 2:17 PM COMBINATION OPERATOR Krunal Wu CRNA 01/12/2025 2:18 PM Procedure: Supraglottic Patient location during procedure: OR Supraglottic Airway Properties Mask Ventilation: easy Type: unique Tube Size: 5 Insertion Attempts: 1 Placement Verification: auscultation and CO2 detection Assessment Assessment: atraumatic and dentition unchanged Mehul Taylor MD ANESTHESIA PX NOTE ORDERABLES Final Result * (ABNORMAL) GLUCOSE METER (01/12/2025 12:29 PM COMBINATION OPERATOR) GLUCOSE METER 105(H) 65 - 100 mg/dL 01/12/2025 12:32 PM COMBINATION OPERATOR [facility] Blood BLOOD SPECIMEN / Unknown 01/12/2025 12:29 PM COMBINATION OPERATOR 01/12/2025 12:32 PM COMBINATION OPERATOR Louis Cook MD CHEMISTRY Final Resu lt [facility] [address] [place] [address], [place] * SCAN-RADIOLOGY REPORT (01/08/2025 12:00 AM COMBINATION OPERATOR) Only the most recent of6 resultswithin the time period is included. Anatomical Region Laterality Modality Other us Scanner OTHER Final Result * SCAN-LABORATORY REPORT (01/08/2025 12:00 AM COMBINATION OPERATOR) us Scanner OTHER Final Result * SCAN-ELECTROCARDIOGRAM EKG (01/08/2025 12:00 AM COMBINATION OPERATOR) us Scanner OTHER Final Result * ECHO [...] BSA: 1.98 m Weight: 87.00 kg Tech: MKG Referring MD: LONNIE MARIE Site: [facility] Reading Location: MOBILE IP [...] documentation: 3cc ml diluted Definity, lot #[id number], [facility]# [id number] was administered peripherally to enhance visualization of all left ventricular segments. . This study was interpreted by an [facility] accredited facility. CC: HIM (med records) [facility], Med/Surg - IP [facility]. Final Procedure Note Ubaldo Fontenot MD - 12/29/2024 ECHOCARDIOGRAM MAC YARBROUGH : 1940 84 years Study Date: 12/29/2024 2:54:44 PM Gender: M BP: 122/66 mmHg Height: 170.00 cm BSA: 1.98 m Weight: 87.00 kg Tech: TASIA Referring MD: LONNIE MARIE Site: [facility] Reading Location: MOBILE IP [...] documentation: 3cc ml diluted Definity, lot #[id number], [facility]#[id number] was administered peripherally to enhance visualization of allleft ventricular segments. . This study was interpreted by an [facility] accredited facility. CC: HIM (med records) [facility], Med/Surg - IP [facility]. Final us Lonnie GIL ECHO ORD Final [...] * POCT Creatinine (12/12/2024 9:17 AM CDT) [facility] POCT,CREATININ E, ISTAT 1.1 0.6 - 1.3 mg/dL 12/12/2024 9:30 AM CDT [facility] Blood BLOOD SPECIMEN / Unknown [facility] / Unknown 12/12/2024 9:17 AM CDT 12/12/2024 9:17 AM CDT Louis Cook MD CHEMISTRY Final Resu lt [facility] [address] [address], [place] [phone] [facility] [address] [place] [address], [place] [phone] * (ABNORMAL) URINE ALBUMIN TO CREATININE RATIO, RANDOM (11/21/2024 9:50 AM CDT) [facility] ALB RAND URINE 351.0 mg/L 11/21/2024 6:24 PM CDT [facility] CREATININE,URIN E 0.59 g/L 11/21/2024 6:24 PM CDT [facility] TR[facility] LABOR[facility] ALBUMIN TO CREATININE RATIO,RAND UR 594.9(H) <30.0 mg/g creat 11/21/2024 6:24 PM CDT [facility] TR[facility] LABORATORY Urine URINE SPECIMEN / Unknown Non-Blood / Unknown 11/21/2024 9:50 AM CDT 11/21/2024 10:37 AM CDT Narrative [facility] - 11/21/2024 6:24 PM CDT If Albumin to Creatinine Ratio is elevated, consider the following: Elevations seen with incipient nephropathy associated with diabetes mellitus or hypertension. Stress, exercise,hematuria, and urinary tract infection may also produce elevated results. If clinically indicated, confirm with 24 Hour Albumin to Creatinine Ratio. Bari Toscano MD URINE Final Result [facility] [address] [place] [address], [place] * METHYLMALONIC ACID BLOOD (11/21/2024 9:29 AM CDT) METHYLMALONIC ACID 98 85 - 423 nmol/L 11/22/2024 5:45 PM CDT [facility] Comment: See Note 1 Serum methylmalonic acid [...] neural tube defects and intrauterine growth restriction. [facility] utilized Multi-Modal Decomposition (MMD) analysis to establish first and second trimester-specific MMA reference intervals in , as given below: MMA, First trimester (<13 wks gestation): 58-167 nmol/L MMA, Second trimester (13-23 wks gestation): 63-241 nmol/L Note 1 This test was developed and its analytical performance characteristics have been determined by [facility]. It has not been cleared or approved by the FDA. This assay has been validated pursuant to the CLIA regulations and is used for clinical purposes. Blood BLOOD SPECIMEN / Unknown [facility] / Unknown 11/21/2024 9:29 AM CDT 11/21/2024 9:29 AM CDT us Bari Toscano MD SEND OUTS Final Result [facility] [address] [place] [address], [place] [phone] * (ABNORMAL) HEMOGLOBIN A1C MONITORING (POCT) (11/21/2024 9:29 AM CDT) [facility] POC HEMOGLOBIN A1C 8.3(H) <6.0 % OF TOTAL HGB 11/21/2024 10:02 AM CDT [facility] Comment: Any point of care results exhibiting inconsistency with the patient's clinical status should be repeated using a different testing method. Blood BLOOD SPECIMEN / Unknown [facility] / Unknown 11/21/2024 9:29 AM CDT 11/21/2024 9:29 AM CDT us Bari Toscano MD CHEMISTRY Final Result Performing Organization Address City/[facility]/ZIP Co de Phone Number [facility] [address] [place] [address], [place] [phone] [facility] [address] [place] [address], [place] [phone] * VITAMIN B12 (11/21/2024 8:12 AM CDT) [facility] VITAMIN B12 658 200 - 1100 pg/mL 11/22/2024 6:04 AM CDT [facility] Blood BLOOD SPECIMEN / Unknown [facility] / Unknown 11/21/2024 8:12 AM CDT 11/21/2024 8:12 AM CDT us Bari Toscano MD CHEMISTRY Final Result [facility] [address] [place] [address], [place] [phone] * SCAN-ELECTROENCEPHALOGRAM EEG INTERP (11/16/2024 12:00 AM CDT) us Scanner OTHER Final Result from Last 3 Months Insurance * Guarantor: Mac Yarbrough Account Type Relation to Patient Date of Phone Billing Address Personal/Family Self 1940 [address] [place] [address] MEDICARE PART A HB ONLY BLUE CROSS MEDICARE ADVANTAGE Advance Directives Documents on File Type Date Recorded Patient Operations Logistics Analyst Expl anation Healthcare Directive 02/10/2024 INVALID , MISSING PAGE, 02/10/2024 Power of Turbogenerator Operator 10/19/1996 DURABLE PO WER OF LBD TEACHER FOR HEALTH CARE, [facility], 10/19/1996 Power of Turbogenerator Operator 10/19/1996 STATUTORY SHORT FORM POWER OF LBD TEACHER, [facility], 10/19/1996 Healthcare Directive 03/04/1993 HEALTH CARE DECLARATION, [facility], 03/04/1993 * Full Code (Latest Code Status on File) Date Activated Date Inactivated Comments 01/12/2025 12:02 PM 01/12/2025 6:17 PM Question Answer Comments Code Status Discussion: Not Discussed * Full Code Date Activated Date Inactivated Comments 03/10/2024 9:42 [...] 7:00 PM 04/07/2012 3:58 PM Care Teams Information Technology Security Manager Relationship Specialty Start Date End Date Bari Toscano MD [address] [place] [address] PCP - General Family Practice 08/14/13 Pardeep Baird [facility] Surgery - Orthopedics 09/09/12 Rocael Gamez [address] [place] [address] Ophthalmology Surgery 09/09/12 [place] [address] [place] [address] Rheumatology 03/07/24
--- OUTSIDE RECORDS SUMMARY | 2025-01-24 20:25 | XMS_ITS | Continuity of Care Document ---
Author Organization [facility], [facility] Address [address] [place] [address] Care Team Providers Care Ebd Special Education Teacher Name Role Phone LINDSAY SANFORD Referring Provider [...] plasma 2024 025 [email or web address] ro [facility], [address], [place], [address], 12/05/2024 12:15:11 PSA, total, serum or plasma [email or web address] [place] [address] Lab, [address] , [place], [address], 12/05/2024 13:23:25 Referral None record ed. Procedures None record ed. Surgeries None record ed. Imaging CT, urogra m - PLEASE CALL PT TO CLARIBEL BERGMAN 2024 025 [facility], [address] , [place], [address], 12/13/2024 11:02:23 Medication Orders tadala maureen 5 mg tablet 2024 025 [facility], [address] [place], [address], 12/05/2024 14:50:32 Patient TargetsNo targets recorded. Patient InstructionsNo instructions recorded. Reason for Referral None Reported. Results Created Date Observation Date Name Description Value Unit Range Abnormal Flag Note LastModifiedBy Organization Detail LastModifiedTime 11/11/1911/10/2024 URINE CULTU RE final report MICROB IOLOGY RESULT S SOURC E Void KNOWN ALLER GIABDIRIZAK NKDA TREAT MENT n/a MEDIA PLATE D [...] for provi gricelda revie w. Not Available [facility] [address], [place], [address], 11/11/2024 10:45:08 11/11/1911/10/2024 urina lysis , dipst ick BLOOD Large (250 RBC/uL ) Not Available [facility] [address], [place], [address], 11/10/2024 11:17:20 11/11/1911/10/2024 urina lysis , dipst ick NITRITES Negati ve Not Available [facility] [address], [place], [address], 11/10/2024 11:17:20 11/11/1911/10/2024 urina lysis , dipst ick LEUKOCYTES Small (25 WBC/uL ) Not Available [facility] [address], [place], [address], 11/10/2024 11:17:20 12/06/1912/05/2024 PSA, serum or plasm a PSA 13.7ng /mL 0-4.0 NG/mL Not Available [facility] [address], [place], [address], 11/22/2024 15:45:12 12/14/19 25 12/12/2024 CT, urogr am No observ ation record ed. OLYA [facility] [address], [place], [address], 12/18/2024 14:28:50 Result Notes None recorded. Procedures Surgical History Date Name Laterality Status Provider Name and Address Organization Details Recorded Time 5 Fill and Pull/Voiding Trial/TOV completed Meli Rowan [facility] 01/17/2025 13:12:18 5 Cystoscopy- male completed Louis Cook MD [address] [place] [address],[address], [place], [address], [facility] 12/26/2024 19:09:00 5 Keflex post Cysto completed Carlos Enrique falcon [facility] 12/26/2024 13:31:05 5 Urinalysis completed Carlos Enrique falcon [facility] 12/26/2024 13:30:59 5 GLASS GLAZIER/blood draw completed Carlos Enrique falcon [facility] 12/05/2024 12:14:49 5 Bladder Scan completed Louis Cook MD [address] [place] [address],[address], [place], [address], [facility] 12/05/2024 12:32:40 5 Urine Culture completed Meli Rowan [facility] 11/10/2024 11:16:59 5 Urinalysis completed Meil Rowan [facility] 11/10/2024 11:16:57 5 Urine Culture completed Anastasiia Ingram [facility] 09/25/2024 12:27:34 5 Urinalysis completed Anastasiia Ingram [facility] 09/25/2024 11:46:34 5 Bladder Scan completed Anastasiia Ingram [facility] 09/25/2024 11:46:26 5 Blood Draw/GLASS GLAZIER/PSA RESULTS completed Louis Cook MD [address] [place] [address],[address], [place], [address], [facility] 05/30/2024 12:41:37 4 Blood Draw/GLASS GLAZIER/PSA RESULTS completed Carlos Enrique falcon [facility] 10/11/2023 10:18:27 3 Heart Surgery completed Louis Cook MD [address] [place] [address],[address], [place], [address], [facility] 09/28/2022 16:37:35 procedure on spine completed Louis Cook MD [address] [place] [address],[facility] [address], [place], [address], [facility] 09/28/2022 16:37:23 CYSTOSCOPY (SURG) completed Danay Lara [facility] 01/15/2025 15:17:54 Imaging Results None recorded. Procedure [...] Updated DateTime 12/05/2024 175.26 cm 31 kg/m2 80824.4 g Louis Cook MD [address] [place] [address],[facility] [address] [address] 12/05/2024 12:32:21 Social History Question Answer Notes LastModified by [employer] Details LastModified Time Tobacco Smoking Status Former Smoker Louis Cook MD [address] [place] [address],[address], [address] 09/28/2022 16:37:00 What Is [...] Functional Status Question Answer Note LastModified by [employer] Details LastModified Time How many times per [...] quadrivalent, PF 3 completed Louis Cook MD [address] [place] [address],[address], [address] [place] [address] Urology 04/26/2023 10:59:30 RSV, recombinant, protein subunit RSVpreF, adjuvant reconstituted, 0.5 mL, PF 3 completed Louis Cook MD [address] [place] [address],[address], [address], [facility] 04/26/2023 10:59:31 COVID-19, mRNA, LNP-S, PF, 50 mcg/0.5 mL 3 completed Louis Cook MD [address] [place] [address],[address], [address], [facility] 04/26/2023 10:59:31 COVID-19, mRNA, LNP-S, PF, 50 mcg/0.5 mL 4 completed Not Available [facility] 12/26/2024 13:30:47 COVID-19, mRNA, LNP-S, PF, 50 mcg/0.5 mL 4 completed Not Available [facility] 12/26/2024 13:30:47 Influenza, adjuvanted, trivalent, PF 4 completed Not Available [facility] 12/26/2024 13:30:47 COVID-19, mRNA, LNP-S, PF, 50 mcg/0.5 mL 5 completed Not Available [facility] 12/26/2024 13:30:47 IPV 08/27/200 2 completed Susana Allar null, [facility] 01/25/2023 09:28:19 Influenza, adjuvanted, trivalent, PF 7 completed Susana Allar null, [facility] 01/25/2023 09:28:19 Influenza, adjuvanted, trivalent, PF 9 completed Susana Allar null, [facility] 01/25/2023 09:28:19 Influenza, adjuvanted, trivalent, PF 8 completed Susana Allar null, [facility] 01/25/2023 09:28:19 zoster recombinant 0 completed Susana Allar null, [facility] 01/25/2023 09:28:19 zoster recombinant 9 completed Susana Allar null, [facility] 01/25/2023 09:28:19 Influenza, adjuvanted, quadrivalent, PF 0 completed Susana Allar null, [facility] 01/25/2023 09:28:19 Influenza, adjuvanted, quadrivalent, PF 2 completed Susana Allar null, [facility] 01/25/2023 09:28:19 Influenza, adjuvanted, quadrivalent, PF 1 completed Susana Allar null, [facility] 01/25/2023 09:28:19 COVID-19, mRNA, LNP-S, PF, 100 mcg/0.5mL dose or 50 mcg/0.25mL dose 1 completed Susana Allar null, [facility] 01/25/2023 09:28:19 COVID-19, mRNA, LNP-S, PF, 100 mcg/0.5mL dose or 50 mcg/0.25mL dose 1 completed Susana Allar null, [facility] 01/25/2023 09:28:19 COVID-19, mRNA, LNP-S, PF, 100 mcg/0.5mL dose or 50 mcg/0.25mL dose 1 completed Susana Allar null, [facility] 01/25/2023 09:28:19 Pneumococcal conjugate PCV20, polysaccharide [id number] conjugate, adjuvant, PF 3 completed Susana Allar null, [facility] 01/25/2023 09:28:19 COVID-19, mRNA, LNP-S, PF, 30 mcg/0.3 mL dose, octavia-sucrose 2 completed Susana Allar null, [facility] 01/25/2023 09:28:19 COVID-19, mRNA, LNP-S, bivalent, PF, 50 mcg/0.5 mL or 25mcg/0.25 mL dose 3 completed Susana Allar null, [facility] 01/25/2023 09:28:19 COVID-19, mRNA, LNP-S, bivalent, PF, 50 mcg/0.5 mL or 25mcg/0.25 mL dose 2 completed Susana Allar null, [facility] 01/25/2023 09:28:19 pneumococcal polysaccharide PPV23 6 completed Susana Allar null, [facility] 01/25/2023 09:28:19 pneumococcal polysaccharide PPV23 6 completed Susana Allar null, [facility] 01/25/2023 09:28:19 Tdap 1 completed Susana Allar null, [facility] 01/25/2023 09:28:19 Tdap 1 completed Susana Allar null, [facility] 01/25/2023 09:28:19 Pneumococcal conjugate PCV 13 5 completed Susana Allar null, [facility] 01/25/2023 09:28:19 yellow fever live 2 completed Susana Allar null, [facility] 01/25/2023 09:28:19 yellow fever live 1 completed Susana Allar null, [facility] 01/25/2023 09:28:19 zoster live 7 completed Susana Allar null, [facility] 01/25/2023 09:28:19 Influenza, high-dose, trivalent, PF 4 completed Susana Allar null, [place] [facility] 01/25/2023 09:28:19 Influenza, high-dose, trivalent, PF 6 completed Susana Allar null, [facility] 01/25/2023 09:28:19 Influenza, high-dose, trivalent, PF 5 completed Susana Allar null, [facility] 01/25/2023 09:28:19 Influenza, split virus, trivalent, preservative 2 completed Susana Allar null, [facility] 01/25/2023 09:28:19 Influenza, split virus, trivalent, preservative 1 completed Susana Allar null, [facility] 01/25/2023 09:28:19 Influenza, split virus, trivalent, preservative 6 completed Susana Allar null, [facility] 01/25/2023 09:28:19 Influenza, split virus, trivalent, preservative 4 completed Susana Allar null, [facility] 01/25/2023 09:28:19 Influenza, split virus, trivalent, preservative 3 completed Susana Allar null, [facility] 01/25/2023 09:28:19 Influenza, split virus, trivalent, preservative 0 completed Susana Allar null, [facility] 01/25/2023 09:28:19 Influenza, split virus, trivalent, preservative 7 completed Susana Allar null, [facility] 01/25/2023 09:28:19 Influenza, split virus, trivalent, preservative 5 completed Susana Allar null, [facility] 01/25/2023 09:28:19 Td (adult), 5 Lf tetanus toxoid, preservative free, adsorbed 5 completed Susana Allar null, [facility] 01/25/2023 09:28:19 typhoid, ViCPs 2 completed Susana Allar null, [facility] 01/25/2023 09:28:19 typhoid, ViCPs 1 completed Susana Guallpalulu null, [facility] 01/25/2023 09:28:19 Hep A-Hep B 2 completed Susana Guallpalulu null, [facility] 01/25/2023 09:28:19 Hep A-Hep B 2 completed Susana Leblanc null, [facility] 01/25/2023 09:28:19 Hep A-Hep B 2 completed Susana Guallpalulu null, [facility] 01/25/2023 09:28:19 Past Encounters Encounter ID Performer Location Encounter Start Date Encounter Closed Date Diagnosis/Indication Diagnosis SNOMED-CT Code Diagnosis ICD10 Code Diagnosis IMO Codes Diagnosis Note [id number] ANTOINE RAMOS PA-C [facility] [address] [place] [address] 11/10/2024 10:42:48 11/17/2024 15:53:02 Urinary symptoms 216404761 R39.9 [id number] Louis Cook MD [facility] [address] [place] [address] 12/05/2024 12:10:36 12/07/2024 11:21:36 Malignant neoplasm of prostate 223853617 C61 1. Prostate cancer- cT1c - [place] 3+3 = 6 - on expectant management - PSA (13.7) - increased - has fluctuated over the years- Follow-up in 3 months with PSA(if PSA increases significan t - check Prostate MRI and recommend TRUS bx Increased frequency of urination 623506964 R35.0 2. Urinary frequency- he is off Lasix- incomplete emptying (188 mL)- stop Gemtesa 75 mg daily Lower urin robbin tract symptoms due to benign prostatic hypertrophy 6949454374 9101 N40.1 4. BPH- high PVR = 188 mL- continue Flomax 0.4 mg daily- add Cialis 5 mg daily- check Bladder scan at Follow-up Microscopic hematuria 19 3360893 R31.29 [id number] 3. Microscopi c hematuria- check CT Urogram- will need Cystoscopy in near future Health Concerns Section Related Observation LastModified by Organization Detai ls LastModified Time None Recorded Concern Status LastModified by Organization Details LastModified Time None Recorded Payers Encounter Date Sequence Insurance Name Policy Number Policy Sam Covered Member ID Sam Member ID Guarantor Name 12/05/2024 1 [place] (MEDICARE [place]PLACEMENT PPO) [id number] Enrike Coleman [id number] Enrike Coleman Notes Date Note Type Note Provider Name and Address Organization Details Recorded Time 12/05/2024 text/html 84 yo male with history of A.fib (on Eliquis), HTN, DM, memory loss, PMR, BPH, and Prostate cancer - T1c - [place] 3+3 = 6 - involving 1/10 cores (< 5%) on Left - TRUS bx (12/15/12) by Dr. Herrera - on expectant management. Prostate MRI (2014) revealed a PI-RADS 2 lesion - underwent MRI bx (10/31/14) of lesion at [facility] - benign. No family H/O prostate [...] 11.80 (09/15/22)- 9.08 (04/16/23) Louis Cook MD [address] [facility],[address], [place], [address], [facility] 12/05/2024 13:50:09
--- OUTSIDE RECORDS SUMMARY | 2025-01-24 20:25 | XMS_ITS | Clinical Summary ---
Author Organization [facility] Address [address] [place] [address] Care Team Providers Care Brim Plater Name Role Phone Clinic, Not Listed Unavailable Unavailable Bari Toscano MD Primary Care Provider America Lim PA-C Unavailable [phone] Allergies No known active allergies Medications acetaminophen [...] Description 11/16/2024 7:30 AM CDT Ancillary Procedure [facility] [address] [place] [address] Memory loss or impairment from Last 3 Months Social History Tobacco [...] HgbA1C 1940 Yearly Review of HCD 02/21/1988 COVID-19 Vaccine (2024- season) 2024 06/02/2024, 11/25/2023, 06/09/2023, Additional history exists Influenza Vaccine (#1) 2024 , 01/06/2023, 11/10/2021, Additional history exists Medicare Wellness Visit 06/02/2025 06/03/19 25, 06/09/2023, 06/12/2022, Additional history exists Creatinine 12/12/2025 12/12/2024, 10/31/2014 Adult Tetanus Booster 06/11/2030 06/11/2020 , 05/09/2010, 10/22/2006, Additional history exists Zoster Vaccine Completed 03/06/2019, 11/29, 11/17/2006 Pneumococcal 50+ Years Completed 3, 09/21/2014, 12/03/2005, Additional history exists RSV Vaccines Completed 01/19/2023 Meningococcal B Vaccine Aged Out No l onger eligible based on patient's age to complete this topic Procedures Procedure Name Priority Date/Time Associated Diagnosis Comments EEG AWAKE AND ASLEEP SLEEP DEPRIVED Routine 11/16/2024 8:22 AM CDT Memory loss or impairment CREATININE EGFR Routine 10/31/2014 12:10 PM CDT from Last 3 Months or Most Recently Relevant to Health Maintenance Results * EEG AWAKE AND ASLEEP SLEEP DEPRIVED (11/16/2024 8:22 AM CDT) Anatomical Region Laterality Modality Magnetic Resonan ce Narrative 11/17/2024 2:57 PM CDT Table formatting from the original result was not included. PATIENT NAME: Enrike Coleman LOCATION: [facility] TEST DATE: 11/16/2024 : 1940 TECH NAME: [...] discharges were observed. Javy Acosta MD Neurologist, [facility] 2:57 PM 11/17/2024 us America Lim PA-C EEG ORDERABLE Final Res ult * CREATININE EGFR (10/31/2014 12:10 PM CDT) Creatinine 1.01 0.70 - 1.30 mg/dL 10/31/2014 12:46 PM CDT [facility] Est GFR (CKD-EPI) >60 >60 mL/min 10/31/2014 12:46 PM CDT [facility] EST GFR IF AM >60 >60 mL/min 10/31/2014 12:46 PM T [facility] Blood 10/31/2014 12:1 0 PM CDT 10/31/2014 12:15 PM CDT us Ericstephen Altamirano MD CHEMISTRY ORDERABLE Final R esult [facility] [address] [place] [address] from Last 3 Months or Most Recently Relevant to Health Maintenance Insurance MEDICARE PART A & [place] [id number] [facility] [employer] BCBS MEDICARE ADVANTAGE Care Teams Brim Plater Relationship Specialty Start Date End Date Clinic, Not Listed PCP - Primary Care Clinic 04/06/06 Bari Toscano MD [address] [place] [address] PCP - General Family Medicine 08/30/24 America Lim PA-C [address] [facility] [address] [place] [address] Neurology 08/30/24
--- OUTSIDE RECORDS SUMMARY | 2025-01-24 20:25 | XMS_ITS | Data Portability ---
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 Plan of Treatment Reminders Order Date Submit Date Provider Last Modified By Organization Details Last Modified Time Details Appointments PSA 10 2025 01:30P M [facility] Not available Not available Not available ESTABL ISHED 10 2025 01:50P M Louis Cook MD Not available Not available Not available Lab urinal ysis, dipsti ck 2024 025 [place] [facility], [address], [place], [address], 12/26/2024 14:05:06 cultur e, urine 2024 025 [facility], [address], [place], [address], 12/30/2024 11:19:27 PSA, serum or plasma 2024 025 [place] [facility], [address], [place], [address], 12/05/2024 12:15:11 PSA, total, serum or plasma 2024 025 [facility], [address] [facility], [place], [address], 12/05/2024 13:23:25 urinal ysis, dipsti ck 2024 025 seng [facility], [address], [place], [address], 11/10/2024 11:19:26 cultur e, urine 2024 025 [facility], [address] [facility], [address], [place], [address], 11/11/2024 10:45:08 cultur e, urine 2024 025 [facility], [address] [facility] [address], [address], [place], [address], 09/28/2024 11:28:22 Referral None record ed. Procedures None record ed. Surgeries cystos copy (SURG) 2024 [email or web address] Not available 12/28/2024 11:47:[address], urogra m - PLEASE CALL PT TO SCHEDU MADALYN 2024 [facility], [address] [facility], [place], [address], 12/13/2024 11:02:23 Medication Orders tadala maureen 5 mg tablet [address], [address], 12/05/2024 14:50:32 Patient TargetsNo targets recorded. Patient InstructionsNo instructions recorded. Reason for Referral None Reported. Results Created Date Observation Date Name Description Value Unit Range Abnormal Flag Note LastModifiedBy Organization Detail LastModifiedTime 09/26/1909/25/2024 URINE CULTU RE final report MICROB [...] for provi gricelda revie w. Not Available [facility] [address] [facility] [address], [place], [address], 09/28/2024 11:28:22 11/11/1911/10/2024 URINE CULTU RE final [...] for provi gricelda revie w. Not Available [facility] [address] [facility] [address], [place], [address], 11/11/2024 10:45:08 11/11/1911/10/2024 urina lysis , dipst ick BLOOD Large (250 RBC/uL ) Not Available [facility] [address], [place], [address], 11/10/2024 11:17:20 11/11/1911/10/2024 urina lysis , dipst ick NITRITES Negati ve Not Available [facility] [address], [place], [address], 11/10/2024 11:17:20 11/11/19 25 11/10/2024 urina lysis , dipst ick LEUKOCYTES Small (25 WBC/uL ) Not Available [facility] [address], [place], [address], 11/10/2024 11:17:20 12/06/19 25 12/05/2024 PSA, serum or plasm a PSA 13.7ng /mL 0-4.0 NG/mL Not Available [facility] [address], [place], [address], 11/22/2024 15:45:12 12/27/1912/26/2024 URINE CULTU RE final [...] menda tions based on the resul t. [place] e allow up to one week for provi gricelda revie w. Not Available [facility] [place] [facility] [address], [place], [address], 12/30/2024 11:19:27 12/27/1912/26/2024 urina lysis , dipst ick BLOOD Large (250 RBC/uL ) Not Available [facility] [address], [place], [address], 12/26/2024 14:04:23 12/27/19 25 12/26/2024 urina lysis , dipst ick BILIRUBIN Negati ve Not Available [facility] [address], [place], [address], 12/26/2024 14:04:23 12/27/19 25 12/26/2024 urina lysis , dipst ick UROBILINOGEN 0.2 mg/dL (Norm) Not Available [facility] [address], [place], [address], 12/26/2024 14:04:23 12/27/19 25 12/26/2024 urina lysis , dipst ick KETONES Negati ve Not Available [facility] [address], [place], [address], 12/26/2024 14:04:23 12/27/19 25 12/26/2024 urina lysis , dipst ick PROTEIN 100 mg/dL Not Available [facility] [address], [place], [address], 12/26/2024 14:04:23 12/27/19 25 12/26/2024 urina lysis , dipst ick NITRITES Negati ve Not Available [facility] [address], [place], [address], 12/26/2024 14:04:23 12/27/19 25 12/26/2024 urina lysis , dipst ick GLUCOSE >2000 mg/dL Not Available [facility] [address], [place], [address], 12/26/2024 14:04:23 12/27/19 25 12/26/2024 urina lysis , dipst ick p.H. 5.0 Not Available [facility] [address], [place], [address], 12/26/2024 14:04:23 12/27/19 25 12/26/2024 urina lysis , dipst ick S.G. (Specific [place]) 1.025 Not Available [facility] [address], [place], [address], 12/26/2024 14:04:23 12/27/1912/26/2024 urina lysis , dipst ick LEUKOCYTES Small (25 WBC/uL ) Not Available [facility] [address], [place], [address], 12/26/2024 14:04:23 12/14/1912/12/2024 CT, urogr am No observ ation record ed. [facility] [address] [facility] [address], [place], [address], 12/18/2024 14:28:50 Result Notes None recorded. Procedures Surgical History Date Name Laterality Status Provider Name and Address Organization Details Recorded Time 5 Fill and Pull/Voiding Trial/TOV completed Meli Rowan [facility] 01/17/2025 13:12:18 5 Cystoscopy- male completed Louis Cook MD [address] [facility],[address], [place], [address], [facility] 12/26/2024 19:09:00 5 Keflex post Cysto completed Carlos Enrique falcon [facility] 12/26/2024 13:31:05 5 Urinalysis completed Carlos Enrique falcon [facility] 12/26/2024 13:30:59 5 DIRECTOR OF ANCILLARY SERVICES/blood draw completed Carlos Enrique falcon [facility] 12/05/2024 12:14:49 5 Bladder Scan completed Louis Cook MD [address] [place] [address],[address], [place], [address], [facility] 12/05/2024 12:32:40 5 Urine Culture completed Meli Rowan [facility] 11/10/2024 11:16:59 5 Urinalysis completed Meli Rowan [facility] 11/10/2024 11:16:57 5 Urine Culture completed Anastasiia Ingram [facility] 09/25/2024 12:27:34 5 Urinalysis completed Anastasiia Ingram [facility] 09/25/2024 11:46:34 5 Bladder Scan completed Anastasiia Ingram [facility] 09/25/2024 11:46:26 5 Blood Draw/DIRECTOR OF ANCILLARY SERVICES/PSA RESULTS completed Louis Cook MD [address] [place] [address],[address], [place], [address], [facility] 05/30/2024 12:41:37 4 Blood Draw/DIRECTOR OF ANCILLARY SERVICES/PSA RESULTS completed Carlos Enrique falcon [facility] 10/11/2023 10:18:27 3 Heart Surgery completed Louis Cook MD [address] [place] [address],[address], [place], [address], [facility] 09/28/2022 16:37:35 procedure on spine completed Louis Cook MD [address] [place] [address],[address], [place], [address], [facility] 09/28/2022 16:37:23 CYSTOSCOPY (SURG) completed Danay Lara [facility] 01/15/2025 15:17:54 Imaging Results None recorded. Procedure [...] Updated DateTime 09/25/2024 175.26 cm 31 kg/m2 56169.4 g Anastasiia Ingram [facility] 09/25/2024 11:45:48 Date Recorded Body height Body mass index (BMI) Body weight Provider Name and Address Organization Details Last Updated DateTime 12/05/2024 175.26 cm 31 kg/m2 10178.4 g Louis Cook MD [address] [place] [address], [address], [facility] 12/05/2024 12:32:21 Social History Question Answer Notes LastModified by Organizat ion Details LastModified Time Tobacco Smoking Status Former Smoker Louis Cook MD [address] [place] [address],[address], [address], [facility] 09/28/2022 16:37:00 What Is Your Level [...] quadrivalent, PF 3 completed Louis Cook MD [address] [place] [address],[address], [address], [facility] 04/26/2023 10:59:30 RSV, recombinant, protein subunit RSVpreF, adjuvant reconstituted, 0.5 mL, PF 3 completed Louis Cook MD [address] [place] [address],[address], [address], [facility] 04/26/2023 10:59:31 COVID-19, mRNA, LNP-S, PF, 50 mcg/0.5 mL 3 completed Louis Cook MD [address] [place] [address],[address], [address], [facility] 04/26/2023 10:59:31 COVID-19, mRNA, LNP-S, PF, 50 mcg/0.5 mL 4 completed Not Available [facility] 12/26/2024 13:30:47 COVID-19, mRNA, LNP-S, PF, 50 mcg/0.5 mL 4 completed Not Available [facility] 12/26/2024 13:30:47 Influenza, adjuvanted, trivalent, PF 4 completed Not Available [facility] 12/26/2024 13:30:47 COVID-19, mRNA, LNP-S, PF, 50 mcg/0.5 mL 5 completed Not Available [facility] 12/26/2024 13:30:47 IPV 2 completed Susana Allar null, [facility] 01/25/2023 09:28:19 Influenza, adjuvanted, trivalent, PF 7 completed Susana Allar null, [facility] 01/25/2023 09:28:19 Influenza, adjuvanted, trivalent, PF 9 completed Susana Allar null, [facility] 01/25/2023 09:28:19 Influenza, adjuvanted, trivalent, PF 8 completed Susana Allar null, [facility] 01/25/2023 09:28:19 zoster recombinant 0 completed Susana Allar null, [facility] 01/25/2023 09:28:19 zoster recombinant 9 completed Susana Allar null, [facility] 01/25/2023 09:28:19 Influenza, adjuvanted, quadrivalent, PF 0 completed Susana Allar null, [facility] 01/25/2023 09:28:19 Influenza, adjuvanted, quadrivalent, PF 2 completed Susana Allar null, [facility] 01/25/2023 09:28:19 Influenza, adjuvanted, quadrivalent, PF 1 completed Susana Allar null, [facility] 01/25/2023 09:28:19 COVID-19, mRNA, LNP-S, PF, 100 mcg/0.5mL dose or 50 mcg/0.25mL dose 1 completed Susana Allar null, [facility] 01/25/2023 09:28:19 COVID-19, mRNA, LNP-S, PF, 100 mcg/0.5mL dose or 50 mcg/0.25mL dose 1 completed Susana Allar null, [facility] 01/25/2023 09:28:19 COVID-19, mRNA, LNP-S, PF, 100 mcg/0.5mL dose or 50 mcg/0.25mL dose 1 completed Susana Allar null, [facility] 01/25/2023 09:28:19 Pneumococcal conjugate PCV20, polysaccharide [id number] conjugate, adjuvant, PF 3 completed Susana Allar null, [facility] 01/25/2023 09:28:19 COVID-19, mRNA, LNP-S, PF, 30 mcg/0.3 mL dose, octavia-sucrose 2 completed Susana Allar null, [facility] 01/25/2023 09:28:19 COVID-19, mRNA, LNP-S, bivalent, PF, 50 mcg/0.5 mL or 25mcg/0.25 mL dose 3 completed Susana Allar null, [facility] 01/25/2023 09:28:19 COVID-19, mRNA, LNP-S, bivalent, PF, 50 mcg/0.5 mL or 25mcg/0.25 mL dose 2 completed Susana Allar null, [facility] 01/25/2023 09:28:19 pneumococcal polysaccharide PPV23 6 completed Susana Allar null, [facility] 01/25/2023 09:28:19 pneumococcal polysaccharide PPV23 6 completed Susana Allar null, [facility] 01/25/2023 09:28:19 Tdap 1 completed Susana Allar null, [facility] 01/25/2023 09:28:19 Tdap 1 completed Susana Allar null, [facility] 01/25/2023 09:28:19 Pneumococcal conjugate PCV 13 5 completed Susana Allar null, [facility] 01/25/2023 09:28:19 yellow fever live 2 completed Susana Allar null, [facility] 01/25/2023 09:28:19 yellow fever live 1 completed Susana Allar null, [facility] 01/25/2023 09:28:19 zoster live 7 completed Susana Allar null, [facility] 01/25/2023 09:28:19 Influenza, high-dose, trivalent, PF 4 completed Susana Allar null, [facility] 01/25/2023 09:28:19 Influenza, high-dose, trivalent, PF 6 completed Susana Allar null, [facility] 01/25/2023 09:28:19 Influenza, high-dose, trivalent, PF 5 completed Susana Allar null, [facility] 01/25/2023 09:28:19 Influenza, split virus, trivalent, preservative 2 completed Susana Allar null, [facility] 01/25/2023 09:28:19 Influenza, split virus, trivalent, preservative 1 completed Susana Allar null, [facility] 01/25/2023 09:28:19 Influenza, split virus, trivalent, preservative 6 completed Susana Allar null, [facility] 01/25/2023 09:28:19 Influenza, split virus, trivalent, preservative 4 completed Susana Allar null, [facility] 01/25/2023 09:28:19 Influenza, split virus, trivalent, preservative 3 completed Susana Allar null, [facility] 01/25/2023 09:28:19 Influenza, split virus, trivalent, preservative 0 completed Susana Allar null, [facility] 01/25/2023 09:28:19 Influenza, split virus, trivalent, preservative 7 completed Susana Allar null, [facility] 01/25/2023 09:28:19 Influenza, split virus, trivalent, preservative 5 completed Susana Allar null, [facility] 01/25/2023 09:28:19 Td (adult), 5 Lf tetanus toxoid, preservative free, adsorbed 5 completed Susana Allar null, [facility] 01/25/2023 09:28:19 typhoid, ViCPs 2 completed Susana Allar null, [facility] 01/25/2023 09:28:19 typhoid, ViCPs 1 completed Susana Allar null, [facility] 01/25/2023 09:28:19 Hep A-Hep B 2 completed Susana Allar null, [facility] 01/25/2023 09:28:19 Hep A-Hep B 2 completed Susana Allar null, [facility] 01/25/2023 09:28:19 [facility] B 2 [facility] 09:28:19 Past Encounters Encounter ID Performer Location Encounter Start Date Encounter Closed Date Diagnosis/Indication Diagnosis SNOMED-CT Code Diagnosis ICD10 Code Diagnosis IMO Codes Diagnosis Note [id number] Louis Cook MD [facility] [address] [address] 09/28/2022 16:22:42 10/02/2022 13:32:27 Malignant neoplasm of prostate [id number] C61 1. Prostate cancer- cT1c - [place] 3+3 = 6 - on expectant management - PSA increased (11.80) - has fluctuated over the years- recheck PSA in November ([facility])- if PSA increases - check Prostate MRI and recommend TRUS bx Lower urin robbin tract symptoms due to benign prostatic hypertrophy 4630405104 9101 N40.1 2. BPH- voiding okay- continue Flomax 0.4 mg daily [id number] Louis Cook MD [address] [place] [address] 04/26/2023 10:54:45 04/26/2023 12:03:27 Malignant neoplasm of prostate [id number] C61 1. Prostate cancer- cT1c - [place] 3+3 = 6 - on expectant management - PSA (9.08) - decreased has fluctuated over the years- recheck PSA in September ([facility])(if PSA increases significan t - check Prostate MRI and recommend TRUS bx Lower urin robbin tract symptoms due to benign prostatic hypertrophy 7122525345 9101 N40.1 2. BPH- voiding okay- continue Flomax 0.4 mg daily [id number] Louis Cook MD [facility] [address] [address] 10/11/2023 09:43:36 10/12/2023 08:25:39 Malignant neoplasm of prostate 100736297 C61 1. Prostate cancer- cT1c - [place] 3+3 = 6 - on expectant management - PSA (10.5) - decreased has fluctuated over the years- Follow-up in 6 months with PSA(if PSA increases significan t - check Prostate MRI and recommend TRUS bx Lower urin robbin tract symptoms due to benign prostatic hypertrophy 3084369050 9101 N40.1 2. BPH- voiding okay- continue Flomax 0.4 mg daily [id number] Louis Cook MD [address] [place] [address] 05/30/2024 12:07:44 06/02/2024 12:10:13 Malignant neoplasm of prostate 489022861 C61 1. Prostate cancer- cT1c - [place] 3+3 = 6 - on expectant management - PSA (103) - decreased has fluctuated over the years- Follow-up in 6 months with PSA(if PSA increases significan t - check Prostate MRI and recommend TRUS bx Lower urin robbin tract symptoms due to benign prostatic hypertrophy 5828618593 9101 N40.1 H/O BPH- voiding okay- continue Flomax 0.4 mg daily- check Bladder scan at Follow-up Increased frequency of urination 138617556 R35.0 2. Urinary frequency- his symptoms correlate with his use of Lasix [id number] [facility] [address] [place] [address] 09/25/2024 11:07:09 10/02/2024 12:08:22 Malignant neoplasm of prostate 788061469 C61 1. Prostate cancer- cT1c - [place] 3+3 = 6 - on expectant management - PSA (103) - decreased has fluctuated over the years- Follow-up as scheduled in November with PSA per Dr Cook(if PSA increases significan t - check Prostate MRI and recommend TRUS bx Increased frequency of urination 589064015 R35.0 2. Urinary frequency and urgency- improved since stopping Lasix and tapering steroid Lower urin robbin tract symptoms due to benign prostatic hypertrophy 1091497358 9101 N40.1 H/O BPH- voiding okay- continue Flomax 0.4 mg daily- PVR 162 ml today Urgent maribel ameya to urinate 35868372 R39.15 544223 Most bothered by urgency / urge incontinen ceAfter must discussion , will trial PRN Gemtesa for days he goes out -- use sparinglyD iscussed expectatio ns, risk of UTIs and difficulty urinating -- low threshhold to discontinu e Gemtesa if not tolerating .Check PVR at next visit -- he will take Gemtesa that morning Will check urine culture today to r/o UTI [id number] [facility] [address] [place] [address] 11/10/2024 10:42:48 11/17/2024 15:53:02 Urinary symptoms 459222157 R39.9 [id number] MD LUIS ANGEL [facility] [address] [place] [address] 12/05/2024 12:10:36 12/07/2024 11:21:36 Malignant neoplasm of prostate [id number] C61 1. Prostate cancer- cT1c - [place] 3+3 = 6 - on expectant management - PSA (13.7) - increased - has fluctuated over the years- Follow-up in 3 months with PSA(if PSA increases significan t - check Prostate MRI and recommend TRUS bx Increased frequency of urination 238009371 R35.0 2. Urinary frequency- he is off Lasix- incomplete emptying (188 mL)- stop Gemtesa 75 mg daily Lower urin robbin tract symptoms due to benign prostatic hypertrophy 3033911297 9101 N40.1 4. BPH- high PVR = 188 mL- continue Flomax 0.4 mg daily- add Cialis 5 mg daily- check Bladder scan at Follow-up Microscopic hematuria 19 0194263 R31.29 019500 3. Microscopi c hematuria- check CT Urogram- will need Cystoscopy in near future [id number] Louis Cook MD [facility] [address] [place] [address] 12/26/2024 13:28:42 12/28/2024 12:14:11 Malignant neoplasm of prostate [id number] C61 2. Prostate cancer- cT1c - [place] 3+3 = 6 - on expectant management - PSA (13.7) - increased - has fluctuated over the years- Follow-up in 3 months with PSA(if PSA increases significan t - check Prostate MRI and recommend TRUS bx Increased frequency of urination 256724819 R35.0 H/O Urinary frequency- he is off Lasix- incomplete emptying (188 mL)- stopped Gemtesa 75 mg daily Microscopic hematuria 19 8439539 R31.29 012220 1. Microscopi c hematuria- CT Urogram (12/12/24) [...] tract symptoms due to benign prostatic hypertrophy 1260608104 9101 N40.1 3. BPH- last PVR = 188 mL- continue Flomax 0.4 mg daily- continue Cialis 5 mg daily- check Bladder scan at Follow-up Multiple n odules of lung 374472472 R91.8 465300 4. Pulmonary nodules- CT Urogram (12/12/24) - no renal masses, hydronephr osis or filling defects - 3 (1mm) stones in Right kidney - + diffuse bladder wall thickening and large prostate.- Lung - small nodules - new 7 mm nodule Right medial lower lobe- (repeat Chest CT scan recommende d in 3-6 months) [id number] Louis Cook MD [facility] [address] [place] [address] 01/17/2025 12:09:37 01/18/2025 10:40:44 Malignant neoplasm of prostate 099654018 C61 Health Concerns Section Related Observation LastModified by Organization Detai ls LastModified Time None Recorded Concern Status LastModified by Organization Details LastModified Time None Recorded Advance Directives Directive None Recorded Payers Insurance Date Sequence Insurance Name Policy Number Policy Sam Covered Member ID Sam Member ID Guarantor Name 01/18/2025 1 [place] [id number] Enrike Coleman [id number] Enrike Coleman 01/17/2025 1 [place] [employer] Enrike Colmean [id number] Enrike Coleman 01/17/2025 1 [place] [id number] Enrike Coleman [id number] Enrike Coleman Notes Date Note Type Note Provider Name and Address Organization Details Recorded Time 09/25/2024 text/html 84 yo male with history of A.fib (on Eliquis), HTN, DM, memory loss, BPH, and Prostate cancer - T1c - [place] 3+3 = 6 - involving 1/10 cores (< 5%) on Left - TRUS bx (12/15/12) by Dr. Herrera - on expectant management. Prostate MRI (2014) revealed a PI-RADS 2 lesion - underwent MRI bx (10/31/14) of lesion at [facility] - benign. No family H/O [...] 9.08 (04/16/23)- 10.3 (05/30/24) ANTOINE RAMOS PA-C [address] [place] [address],[address], [place], [address], [facility] [place] [facility] 09/25/2024 13:01:31 11/10/2024 text/html David is here for UA/UC and PVR- see triage note for Sx detailsNurse visit completed by Meli Sanchez RN. Meli watson [place] - [facility] 11/10/2024 11:19:56 12/05/2024 text/html 84 yo [...] underwent MRI bx (10/31/14) of lesion at [facility] - benign. No family H/O [...] 11.80 (09/15/22)- 9.08 (04/16/23) Louis Cook MD [address] [place] [address],[address], [place], [address], [facility] - [facility] [place] [facility] 12/05/2024 13:50:09 12/26/2024 text/html 84 yo male with history of A.fib (on Eliquis), HTN, DM, memory loss, PMR, BPH, and Prostate cancer - T1c - [place] 3+3 = 6 - involving 1/10 cores (< 5%) on Left - TRUS bx (12/15/12) by Dr. Herrera - on expectant management. Prostate MRI (2014) revealed a PI-RADS 2 lesion - underwent MRI bx (10/31/14) of lesion at [facility] - benign. No family H/O prostate cancer.He is on Flomax 0.4 mg daily and stopped Gemtesa 75 mg daily. 05/30/24 - He presents for follow-up on Prostate cancer. 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 He reports more frequent / urgent urination since his surgery (on Lasix 40 mg in AM). He voids every 30-2 hours during the day and 1-2x/night. 09/25/24 ([facility]) - He presents for [...] medial lower lobe Louis Cook MD [address] [facility],[address], [place], [address], [facility] 12/26/2024 19:09:44 01/17/2025 text/html Pt presents to clinic for TOV. Urine is clear.one old small clot noted after urination.Per Dr Cook, pt to continue to hold Eliquis for 24 hours and see how urine is looking with cath out, if clear then resume. Pt and stated understanding.Nurse visit completed by Meli Sanchez RN. Meli watson [facility] 01/17/2025 13:13:36
--- OUTSIDE RECORDS SUMMARY | 2025-01-24 20:25 | XMS_ITS | Encounter Summary ---
Author Organization [facility] Address [address] [place] [address] Care Team Providers Care Production Operations Engineer Name Role Phone Clinic, Not Listed Unavailable Unavailable Bari Toscano MD Primary Care Provider America Lim PA-C Unavailable [phone] Encounter Details Date Type Department Care Team (Late st Contact Info) Description 10/20/2024 Results Follow-Up [facility] - [address] [place] [address] [phone] America Lim PA-C [address] [place] [address] [place] [id number] METHYLMALONIC ACID, SERUM ([facility]), TSH ([facility]), VITAMIN [...] deficiency documented in this encounter Care Teams Production Operations Engineer Relationship Specialty Start Date End Date Clinic, Not Listed PCP - Primary Care Clinic 04/06/06 Bari Toscano MD [address] [place] [address] PCP - General Family Medicine 08/30/24 America Lim PA-C [address] [facility] [address] [place] [address] Neurology 08/30/24 documented as of this encounter
--- OUTSIDE RECORDS SUMMARY | 2025-01-24 20:25 | XMS_ITS | Continuity of Care Document ---
Author Organization [facility] Address [address] [place] [address] Care Team Providers Care Pharmacy Technician Per Diem Name Role Phone LINDSAY SANFORD Referring Provider [...] mmadrigalvale ro [facility], [address], [place], [address], 12/26/2024 14:05:06 cultur e, urine 2024 025 [facility], [address], [place], [address], 12/30/2024 11:19:27 Referral None record ed. Procedures [...] Not Available [facility] [address], [place], [address], 11/22/2024 15:45:12 12/27/1912/26/2024 URINE CULTU RE final [...] for provi gricelda revie w. Not Available [facility] [address], [place], [address], 12/30/2024 11:19:27 12/27/1912/26/2024 urina lysis , dipst ick BLOOD Large (250 RBC/uL ) Not Available [facility] [address], [place], [address], 12/26/2024 14:04:23 12/27/1912/26/2024 urina lysis , dipst ick BILIRUBIN Negati ve Not Available [facility] [address], [place], [address], 12/26/2024 14:04:23 12/27/19 25 12/26/2024 urina lysis , dipst ick UROBILINOGEN 0.2 mg/dL (Norm) Not Available [facility] [address], [place], [address], 12/26/2024 14:04:23 12/27/1912/26/2024 urina lysis , dipst ick KETONES Negati ve Not Available [facility] [address], [place], [address], 12/26/2024 14:04:23 12/27/1912/26/2024 urina lysis , dipst ick PROTEIN 100 mg/dL Not Available [facility] [address], [place], [address], 12/26/2024 14:04:23 12/27/1912/26/2024 urina lysis , dipst ick NITRITES Negati ve Not Available [facility] [address], [place], [address], 12/26/2024 14:04:23 12/27/1912/26/2024 urina lysis , dipst ick GLUCOSE >2000 mg/dL Not Available [facility] [address], [place], [address], 12/26/2024 14:04:23 12/27/1912/26/2024 urina lysis , dipst ick p.H. 5.0 Not Available [facility] [address], [place], [address], 12/26/2024 14:04:23 12/27/1912/26/2024 urina lysis , dipst ick S.G. (Specific [place]) 1.025 Not Available [facility] [address], [place], [address], 12/26/2024 14:04:23 12/27/1912/26/2024 urina lysis , dipst ick LEUKOCYTES Small (25 WBC/uL ) Not Available [facility] [address], [place], [address], 12/26/2024 14:04:23 12/14/19 25 12/12/2024 CT, urogr am No observ ation record ed. OLYA Guall[facility] [address], [place], [address], 12/18/2024 14:28:50 Result Notes None recorded. Procedures Surgical History Date Name Laterality Status Provider Name and Address Organization Details Recorded Time 5 Fill and Pull/Voiding Trial/TOV completed Meli Rowan [facility] 01/17/2025 13:12:18 5 Cystoscopy- male completed Louis Cook MD [address] [place] [address],[address], [place], [address], [facility] 12/26/2024 19:09:00 5 Keflex post Cysto completed Carlos Enrique falcon [facility] 12/26/2024 13:31:05 5 Urinalysis completed Carlos Enrique falcon [facility] 12/26/2024 13:30:59 5 ASSEMBLY MACHINE TENDER/blood draw completed Carlos Enrique falcon [facility] 12/05/2024 12:14:49 5 Bladder Scan completed Louis Cook MD [address] [place] [address],[address], [place], [address], [facility] 12/05/2024 12:32:40 5 Urine Culture completed Meli Rowan [facility] 11/10/2024 11:16:59 5 Urinalysis completed Meli Rowan [facility] 11/10/2024 11:16:57 5 Urine Culture completed Anastasiia Ingram [facility] 09/25/2024 12:27:34 5 Urinalysis completed Anastasiia Ingram [facility] 09/25/2024 11:46:34 5 Bladder Scan completed Anastasiia Ingram [facility] 09/25/2024 11:46:26 5 Blood Draw/ASSEMBLY MACHINE TENDER/PSA RESULTS completed Louis Cook MD [address] [place] [address],[address], [place], [address], [facility] 05/30/2024 12:41:37 4 Blood Draw/ASSEMBLY MACHINE TENDER/PSA RESULTS completed Carlos Enrique falcon [facility] 10/11/2023 10:18:27 3 Heart Surgery completed Louis Cook MD [address] [place] [address],[facility] [address], [place], [address], [facility] 09/28/2022 16:37:35 procedure on spine completed Louis Cook MD [address] [place] [address],[facility] [address], [address], [facility] 09/28/2022 16:37:23 CYSTOSCOPY (SURG) completed Danay Lara [facility] 01/15/2025 15:17:54 Imaging Results None recorded. [...] Social History Question Answer Notes LastModified by SlideJarizat Peppercorn Details LastModified Time Tobacco Smoking Status Former Smoker Louis Cook MD [address] [place] [address],[address], [place], [address], [facility] 09/28/2022 16:37:00 What Is [...] quadrivalent, PF 3 completed Louis Cook MD [address] [place] [address],[address], [place], [address], [facility] 04/26/2023 10:59:30 RSV, recombinant, protein subunit RSVpreF, adjuvant reconstituted, 0.5 mL, PF 3 completed Louis Cook MD [address] [place] [address],[address], [place], [address], [facility] 04/26/2023 10:59:31 COVID-19, mRNA, LNP-S, PF, 50 mcg/0.5 mL 3 completed Louis Cook MD [address] [place] [address],[address], [place], [address], [facility] 04/26/2023 10:59:31 COVID-19, mRNA, LNP-S, PF, 50 mcg/0.5 mL 4 completed Not Available [facility] 12/26/2024 13:30:47 COVID-19, mRNA, LNP-S, PF, 50 mcg/0.5 mL 4 completed Not Available [facility] 12/26/2024 13:30:47 Influenza, adjuvanted, trivalent, PF 4 completed Not Available [facility] 12/26/2024 13:30:47 COVID-19, mRNA, LNP-S, PF, 50 mcg/0.5 mL 5 completed Not Available [facility] 12/26/2024 13:30:47 IPV 2 completed Susana watson, [facility] 01/25/2023 09:28:19 Influenza, adjuvanted, trivalent, PF 7 completed Susana watson, [facility] 01/25/2023 09:28:19 Influenza, adjuvanted, trivalent, PF 9 completed Susana watson, [facility] 01/25/2023 09:28:19 Influenza, adjuvanted, trivalent, PF 8 completed Susana Allar null, [facility] 01/25/2023 09:28:19 zoster recombinant 0 completed Susana Allar null, [facility] 01/25/2023 09:28:19 zoster recombinant 9 completed Susana Allar null, [facility] 01/25/2023 09:28:19 Influenza, adjuvanted, quadrivalent, PF 0 completed Susana Allar null, [facility] 01/25/2023 09:28:19 Influenza, adjuvanted, quadrivalent, PF 2 completed Susana Allar null, [facility] 01/25/2023 09:28:19 Influenza, adjuvanted, quadrivalent, PF 1 completed Susana Allar null, [facility] 01/25/2023 09:28:19 COVID-19, mRNA, LNP-S, PF, 100 mcg/0.5mL dose or 50 mcg/0.25mL dose 1 completed Susana Allar null, [facility] 01/25/2023 09:28:19 COVID-19, mRNA, LNP-S, PF, 100 mcg/0.5mL dose or 50 mcg/0.25mL dose 1 completed Susana Allar null, [facility] 01/25/2023 09:28:19 COVID-19, mRNA, LNP-S, PF, 100 mcg/0.5mL dose or 50 mcg/0.25mL dose 1 completed Susana Allar null, [facility] 01/25/2023 09:28:19 Pneumococcal conjugate PCV20, polysaccharide [id number] conjugate, adjuvant, PF 3 completed Susana Allar null, [facility] 01/25/2023 09:28:19 COVID-19, mRNA, LNP-S, PF, 30 mcg/0.3 mL dose, octavia-sucrose 2 completed Susana Allar null, [facility] 01/25/2023 09:28:19 COVID-19, mRNA, LNP-S, bivalent, PF, 50 mcg/0.5 mL or 25mcg/0.25 mL dose 3 completed Susana Allar null, [facility] 01/25/2023 09:28:19 COVID-19, mRNA, LNP-S, bivalent, PF, 50 mcg/0.5 mL or 25mcg/0.25 mL dose 2 completed Susana Allar null, [facility] 01/25/2023 09:28:19 pneumococcal polysaccharide PPV23 6 completed Susana Allar null, [facility] 01/25/2023 09:28:19 pneumococcal polysaccharide PPV23 6 completed Susana Allar null, [facility] 01/25/2023 09:28:19 Tdap 1 completed Susana Allar null, [facility] 01/25/2023 09:28:19 Tdap 1 completed Susana Allar null, [facility] 01/25/2023 09:28:19 Pneumococcal conjugate PCV 13 5 completed Susana Allar null, [facility] 01/25/2023 09:28:19 yellow fever live 2 completed Susana Allar null, [facility] 01/25/2023 09:28:19 yellow fever live 1 completed Susana Allar null, [facility] 01/25/2023 09:28:19 zoster live 7 completed Susana Allar null, [facility] 01/25/2023 09:28:19 Influenza, high-dose, trivalent, PF 4 completed Susana Allar null, [facility] 01/25/2023 09:28:19 Influenza, high-dose, trivalent, PF 6 completed Susana Allar null, [facility] 01/25/2023 09:28:19 Influenza, high-dose, trivalent, PF 5 completed Susana Allar null, [facility] 01/25/2023 09:28:19 Influenza, split virus, trivalent, preservative 2 completed Susana Allar null, [facility] 01/25/2023 09:28:19 Influenza, split virus, trivalent, preservative 1 completed Susana Allar null, [facility] 01/25/2023 09:28:19 Influenza, split virus, trivalent, preservative 6 completed Susana Allar null, [facility] 01/25/2023 09:28:19 Influenza, split virus, trivalent, preservative 4 completed Susana Allar null, [facility] 01/25/2023 09:28:19 Influenza, split virus, trivalent, preservative 3 completed Susana Allar null, [facility] 01/25/2023 09:28:19 Influenza, split virus, trivalent, preservative 0 completed Susana Allar null, [facility] 01/25/2023 09:28:19 Influenza, split virus, trivalent, preservative 7 completed Susana Allar null, [facility] 01/25/2023 09:28:19 Influenza, split virus, trivalent, preservative 5 completed Susana Allar null, [facility] 01/25/2023 09:28:19 Td (adult), 5 Lf tetanus toxoid, preservative free, adsorbed 5 completed Susana Allar null, [facility] 01/25/2023 09:28:19 typhoid, ViCPs 2 completed Susana Allar null, [facility] 01/25/2023 09:28:19 typhoid, ViCPs 1 completed Susana Allar null, [facility] 01/25/2023 09:28:19 Hep A-Hep B 2 completed Susana Allar null, [facility] 01/25/2023 09:28:19 Hep A-Hep B 2 completed Susana Allar null, [facility] 01/25/2023 09:28:19 Hep A-Hep B 2 completed NATALIE Cary - [facility] 01/25/2023 09:28:19 Past Encounters Encounter ID Performer Location Encounter Start Date Encounter Closed Date Diagnosis/Indication Diagnosis SNOMED-CT Code Diagnosis ICD10 Code Diagnosis IMO Codes Diagnosis Note [id number] Louis Cook MD [facility] [address] [place] [id number] 12/05/2024 12:10:36 12/07/2024 11:21:36 Malignant neoplasm of prostate 293021859 C61 1. Prostate cancer- cT1c - [place] 3+3 = 6 - on expectant management - PSA (13.7) - increased - has fluctuated over the years- Follow-up in 3 months with PSA(if PSA increases significan t - check Prostate MRI and recommend TRUS bx Increased frequency of urination 741192388 R35.0 2. Urinary frequency- he is off Lasix- incomplete emptying (188 mL)- stop Gemtesa 75 mg daily Lower urin robbin tract symptoms due to benign prostatic hypertrophy 4283662799 9101 N40.1 4. BPH- high PVR = 188 mL- continue Flomax 0.4 mg daily- add Cialis 5 mg daily- check Bladder scan at Follow-up Microscopic hematuria 19 8288198 R31.29 927655 3. Microscopi c hematuria- check CT Urogram- will need Cystoscopy in near future [id number] Louis Cook MD _[facility] [address] [place] [id number] 12/26/2024 13:28:42 12/28/2024 12:14:11 Malignant neoplasm of prostate 901450758 C61 2. Prostate cancer- cT1c - [place] 3+3 = 6 - on expectant management - PSA (13.7) - increased - has fluctuated over the years- Follow-up in 3 months with PSA(if PSA increases significan t - check Prostate MRI and recommend TRUS bx Increased frequency of urination 513503017 R35.0 H/O Urinary frequency- he is off Lasix- incomplete emptying (188 mL)- stopped Gemtesa 75 mg daily Microscopic hematuria 19 5905483 R31.29 065039 1. Microscopi c hematuria- CT Urogram (12/12/24) [...] tract symptoms due to benign prostatic hypertrophy 1782520742 9101 N40.1 3. BPH- last PVR = 188 mL- continue Flomax 0.4 mg daily- continue Cialis 5 mg daily- check Bladder scan at Follow-up Multiple n odules of lung 608599131 R91.8 [id number] 4. Pulmonary nodules- CT Urogram (12/12/24) - [...] Name 12/26/2024 1 [place] ([place]) [id number] Enrike Coleman [id number] Enrike Coleman Notes Date Note Type Note [...] underwent MRI bx (10/31/14) of lesion at [facility] - benign. No family H/O prostate cancer.He [...] Right medial lower lobe Louis Cook MD [address] [facility],[address], [place], [address], [facility] - [facility] 12/26/2024 19:09:44
--- OUTSIDE RECORDS SUMMARY | 2025-01-24 20:25 | XMS_ITS | Clinical Summary ---
Author Organization [facility] Address [address] [facility] , [address] [place] [address] Phone Care Team Providers Care Sleeve Bottom Feller Name Role Phone MedRec, MedRec Unavailable Conditions or Problems Problem Name Problem Code Onset Date Status Entry Date Provider Comment Standard Description Annotate Leg weakness, bilateral 723021903 (SNOMED CT) Active Marco Antonio Alicea MD Paresis of lower extremity Peripheral polyneuropathy 738559172 (SNOMED CT) Active Marco Antonio Alicea MD Peripheral nerve disease Nonspecific paroxysmal spell 3583173 (SNOMED CT) 03/26 Active 03/26 Marco Antonio Alicea MD Disturbance of consciousness Mild cognitive impairment 048768136 (SNOMED CT) 03/19 Active 03/19 Marco Antonio Alicea MD Mild neurocognitive disorder Memory loss 13014014 (SNOMED CT) 10/31 Active 10/31 Marco Antonio Alicea MD Amnesia Medications Medication Instructions Start Date Stop Date Generic Name [facility] Provider METFORMIN HCL ER 500 MG [id number] 04/28 metformin (glucophage xr) [id number] Marco Antonio Alicea MD SODIUM CHLORIDE 0.9 % SOLN 04/28 sodium chloride 82895472220 Marco Antonio Alicea MD GABAPENTIN 300 MG CAPS TAKE 1 CAPSULE (300 MG) BY MOUTH AT BEDTIME. 04/28 gabapentin [id number] Marco Antonio Alicea MD ELIQUIS 5 MG TABS TAKE 1 TABLET (5 MG) BY MOUTH TWO TIMES DAILY. 04/28 apixaban [id number] Marco Antonio Alicea MD LISINOPRIL-HYDRO CHLOROTHIAZIDE 20-25 MG TABS 04/28 lisinopril-hydr ochlorothiazide 99126530314 Marco Antonio Alicea MD TRUE METRIX BLOOD GLUCOSE TEST STRP TEST 2 TIMES PER WEEK. 04/28 blood sugar diagnostic 48601380959 Marco Antonio Alicea MD TROSPIUM CHLORIDE 20 MG TABS TAKE ONE TABLET BY MOUTH DAILY 04/28 trospium [id number] Marco Antonio Alicea MD GLIPIZIDE ER 2.5 MG [id number] 04/28 glipizide [id number] Marco Antonio Alicea MD PREDNISONE 10 MG TABS TAKE 1-2 TABLETS (10-20 MG) BY MOUTH ONCE DAILY WITH A MEAL. DIRECTED 04/28 prednisone [id number] Marco Antonio Alicea MD TAMSULOSIN HCL 0.4 MG CAPS TAKE 1 CAPSULE (0.4 MG) BY MOUTH ONCE DAILY AFTER A MEAL. 04/28 tamsulosin 66588341118 Marco Antonio Alicea MD ENTRESTO 24-26 MG TABS TAKE 1 TABLET BY MOUTH TWO TIMES DAILY. sacubitril-vals karin [id number] Marco Antonio Alicea MD VITAMIN B-12 1,000 MCG TAB 1000 TAKE 1 TABLET (1,000 MCG) BY MOUTH ONCE DAILY. VITAMIN B-12 1,000 MCG TAB 1000 Marco Antonio Alicea MD JARDIANCE 10 MG TABS TAKE 1 TABLET (10 MG) BY MOUTH ONCE DAILY. empagliflozin [id number] Marco Antonio Alicea MD ELIQUIS 5 MG TABS TAKE 1 TABLET (5 MG) BY MOUTH TWO TIMES DAILY. apixaban [id number] Marco Antonio Alicea MD TROSPIUM CHLORIDE 20 MG TABS TAKE ONE TABLET BY MOUTH DAILY trospium [id number] Marco Antonio Alicea MD FUROSEMIDE 20 MG TABS TAKE 1 TABLET (20 MG) BY MOUTH ONCE DAILY IN THE MORNING. furosemide 43663904712 Marco Antonio Alicea MD ROSUVASTATIN CALCIUM 20 MG TABS TAKE 1 TABLET (20 MG) BY MOUTH AT BEDTIME. rosuvastatin [id number] Marco Antonio Alicea MD METOPROLOL SUCCINATE ER 25 MG [id number] TAKE 1 TABLET (25 MG) BY MOUTH ONCE DAILY. metoprolol succinate [id number] Marco Antonio Alicea MD TAMSULOSIN HCL 0.4 MG CAPS TAKE 1 CAPSULE (0.4 MG) BY MOUTH ONCE DAILY AFTER A MEAL. tamsulosin [id number] Marco Antonio Alicea MD ISOSORBIDE MONONITRATE ER 30 MG [id number] TAKE 1 TABLET (30 MG) BY MOUTH ONCE DAILY. isosorbide mononitrate [id number] Marco Antonio Alicea MD METFORMIN HCL ER 500 MG [id number] TAKE 4 TABLETS (2,000 MG) BY MOUTH ONCE DAILY WITH EVENING MEAL. metformin (glucophage xr) [id number] Marco Antonio Alicea MD NITROGLYCERIN 0.[address] 1 TABLET (0.4 MG) UNDER THE TONGUE EVERY 5 MINUTES IF NEEDED FOR CHEST PAIN. UP TO 3 TABLETS IN 15 MINUTES. nitroglycerin 83227758443 Marco Antonio Alicea MD GABAPENTIN 300 MG CAPS TAKE 1 CAPSULE (300 MG) BY MOUTH AT BEDTIME. gabapentin [id number] Marco Antonio Alicea MD POTASSIUM CHLORIDE GEM ER 20 MEQ CR-TABS TAKE 1 TABLET (20 MEQ) BY MOUTH ONCE DAILY. potassium chloride 43367575827 Marco Antonio Alicea MD TERBINAFINE HCL 1 % CREA APPLY TOPICALLY TO AFFECTED AREA(S) TWO TIMES DAILY. terbinafine hcl [id number] Marco Antonio Alicea MD TERBINAFINE HCL 250 MG TABS TAKE 1 TABLET (250 MG) BY MOUTH ONCE DAILY. terbinafine hcl [id number] Marco Antonio Alicea MD GLIPIZIDE ER 10 MG [id number] TAKE 2 TABLETS (20 MG) BY MOUTH ONCE DAILY BEFORE A MEAL. glipizide [id number] Marco Antonio Alicea MD PREDNISONE 20 MG TABS TAKE 1 TABLET (20 MG) BY MOUTH ONCE DAILY WITH A MEAL. 09/20 prednisone [id number] Yue Schulte PA-C TROSPIUM CHLORIDE 20 MG TABS TAKE ONE TABLET BY MOUTH DAILY 04/28 trospium [id number] Yue Garciail PA-C PREDNISONE 10 MG TABS TAKE 1-2 TABLETS (10-20 MG) BY MOUTH ONCE DAILY WITH A MEAL. DIRECTED 04/28 prednisone [id number] Yue Schulte PA-C GABAPENTIN 300 MG CAPS TAKE 1 CAPSULE (300 MG) BY MOUTH AT BEDTIME. 09/08 gabapentin [id number] Yue GIL-C ID NOW COVID-19 KIT TEST DIRECTED TODAY 09/17 covid-19 molecular test assay [id number] Yue cShulte PA-C PREDNISONE 20 MG TABS TAKE 1 TABLET (20 MG) BY MOUTH ONCE DAILY WITH A MEAL. 09/20 prednisone [id number] Yue Schulte PA-C ELIQUIS 5 MG TABS TAKE 1 TABLET (5 MG) BY MOUTH TWO TIMES DAILY. 04/28 apixaban [id number] Yue Garciail PA-C TAMSULOSIN HCL 0.4 MG CAPS TAKE 1 CAPSULE (0.4 MG) BY MOUTH ONCE DAILY AFTER A MEAL. 04/28 tamsulosin [id number] Yue Garciail PA-C ID NOW COVID-19 KIT TEST DIRECTED TODAY 09/17 covid-19 molecular test assay [id number] Marco Antonio Alicea MD TRUE METRIX BLOOD GLUCOSE TEST STRP TEST 2 TIMES PER WEEK. 04/28 blood sugar diagnostic 73377759863 Marco Antonio Alicea MD LISINOPRIL-HYDRO CHLOROTHIAZIDE 20-25 MG TABS 04/28 lisinopril-hydr ochlorothiazide [id number] Marco Antonio Alicea MD METFORMIN HCL ER 500 MG [id number] 04/28 metformin [id number] Marco Antonio Alicea MD GLIPIZIDE ER 2.5 MG [id number] 09/08 glipizide [id number] Marco Antonio Alicea MD SODIUM CHLORIDE 0.9 % SOLN 04/28 sodium chloride [id number] Marco Antonio Alicea MD Medications Administered No [...] and results reviewed. Total score [M MSE] [id number] Normal Total scor e [MoCA] MMSE SCORE [...] Yes Consent To Release information to the [employer]) Plan of Care Type Date Detail Pending [...] ORDERS Follow up ABBY ORDERS Patient Instructions [facility]-[id number] Documentation of current medicatio ns ORDERS Follow up CPT-86214 Nerve Conduction 11-12 studies CPT-93713 EMG with NCS (5+ muscles) - 2 limbs 12/22 ORDERS Patient Instructions LOINC 53059-4 MMSE ORDERS Follow up ABBY ORDERS Patient Instructions ORDERS Follow up [facility]-[id number] Documentation of current medicatio ns ORDERS Patient Instructions ORDERS Follow up ABBY in clinic or telemedicine 2 LOINC 98355-0 MMSE ORDERS Patient Instructions ORDERS Follow up telemedicine 10/31 [facility]-[id number] Documentation of current medicatio ns ORDERS Neuropsychology Evaluation 2 [facility]-[id number] Documentation of current medicatio ns LOINC 01712-0 MMSE Vital Signs No information available. Immunizations No information available. Advance Directives No information available.
--- OUTSIDE RECORDS SUMMARY | 2025-01-24 20:26 | XMS_ITS | Continuity of Care Document ---
Author Organization [facility], [facility] Address [address] [place] [address] Care Team Providers Care Cardiovascular Surgeon Name Role Phone LINDSAY SANFORD Referring Provider Assessment No assessment recorded. Plan of Treatment Reminders Order Date Submit Date Provider Last Modified By Organization Details Last Modified Time Details Appointments PSA 2025 01:30P M [facility] Not available Not available Not available ESTABLISH ED 2025 01:50P M Louis Cook MD Not available Not available Not available Lab None recorded. Referral None recorded. Procedures None recorded. Surgeries None recorded. Imaging None recorded. Medication Orders None recorded. Patient TargetsNo targets recorded. Patient InstructionsNo instructions recorded. Reason for Referral None Reported. Results Created Date Observation Date Name Description Value Unit Range Abnormal Flag Note LastModifiedBy Organization Detail LastModifiedTime 12/27/1912/26/2024 URINE CULTU RE final report MICROB [...] micin , Tobra mycin , Cipro floxa jasion, Vanco mycin , and Impen em (Isol [...] [facility] [address], [place], [address], 12/30/2024 11:19:27 12/27/1912/26/2024 urina lysis , dipst ick BLOOD Large (250 RBC/uL ) Not Available [facility] [address], [place], [address], 12/26/2024 14:04:23 12/27/1912/26/2024 urina lysis , dipst ick BILIRUBIN Negati ve Not Available [facility] [address], [place], [address], 12/26/2024 14:04:23 12/27/19 25 12/26/2024 urina lysis , dipst ick UROBILINOGEN 0.2 mg/dL (Norm) Not Available [facility] [address], [place], [address], 12/26/2024 14:04:23 12/27/19 25 12/26/2024 urina lysis , dipst ick KETONES Negati ve Not Available [facility] [address], [place], [address], 12/26/2024 14:04:23 12/27/19 25 12/26/2024 urina lysis , dipst ick PROTEIN 100 mg/dL Not Available [facility] [address], [place], [address], 12/26/2024 14:04:23 12/27/19 25 12/26/2024 urina lysis , dipst ick NITRITES Negati ve Not Available [facility] [address], [place], [address], 12/26/2024 14:04:23 12/27/1912/26/2024 urina lysis , dipst ick GLUCOSE >2000 mg/dL Not Available [facility] [address], [place], [address], 12/26/2024 14:04:23 12/27/1912/26/2024 urina lysis , dipst ick p.H. 5.0 Not Available [facility] [address], [place], [address], 12/26/2024 14:04:23 12/27/1912/26/2024 urina lysis , dipst ick S.G. (Specific [place]) 1.025 Not Available [facility] [address], [place], [address], 12/26/2024 14:04:23 12/27/1912/26/2024 urina lysis , dipst ick LEUKOCYTES Small (25 WBC/uL ) Not Available [facility] [address], [place], [address], 12/26/2024 14:04:23 Result Notes None recorded. Procedures Surgical History Date Name Laterality Status Provider Name and Address Organization Details Recorded Time 5 Fill and Pull/Voiding Trial/TOV completed Meli Rowan [facility] 01/17/2025 13:12:18 5 Cystoscopy- male completed Loius Cook MD [address] [facility],[address], [place], [address], [facility] 12/26/2024 19:09:00 5 Keflex post Cysto completed Carlos Enrique falcon [facility] 12/26/2024 13:31:05 5 Urinalysis completed Carlo sEnrique falcon [facility] 12/26/2024 13:30:59 5 BODY WIRER/blood draw completed Carlos Enrique falcon [facility] 12/05/2024 12:14:49 5 Bladder Scan completed Louis Cook MD [address] [place] [address],[address], [address], [facility] 12/05/2024 12:32:40 5 Urine Culture completed Meli Rowan [facility] 11/10/2024 11:16:59 5 Urinalysis completed Meli Rowan [facility] 11/10/2024 11:16:57 5 Urine Culture completed Anastasiia Ingram [facility] 09/25/2024 12:27:34 5 Urinalysis completed Anastasiia Ingram [facility] 09/25/2024 11:46:34 5 Bladder Scan completed Anastasiia Ingram [facility] 09/25/2024 11:46:26 5 Blood Draw/BODY WIRER/PSA RESULTS completed Louis Cook MD [address] [place] [address],[address], [address], [facility] 05/30/2024 12:41:37 4 Blood Draw/BODY WIRER/PSA RESULTS completed Carlos Enrique falcon [facility] 10/11/2023 10:18:27 3 Heart Surgery completed Louis Cook MD [address] [place] [address],[address], [address], [facility] 09/28/2022 16:37:35 procedure on spine completed Louis Cook MD [address] [place] [address],[address], [address], [facility] 09/28/2022 16:37:23 CYSTOSCOPY (SURG) completed Danay Lara [facility] 01/15/2025 15:17:54 Imaging Results None recorded. [...] Smoking Status Former Smoker Louis Cook MD [address] [place] [address],[address], [place], [address], [facility] 09/28/2022 16:37:00 What Is [...] quadrivalent, PF 3 completed Louis Cook MD [address] [place] [address],[address], [address], [facility] 04/26/2023 10:59:30 RSV, recombinant, protein subunit RSVpreF, adjuvant reconstituted, 0.5 mL, PF 3 completed Louis Cook MD [address] [place] [address],[address], [address], [facility] 04/26/2023 10:59:31 COVID-19, mRNA, LNP-S, PF, 50 mcg/0.5 mL 3 completed Louis Cook MD [address] [place] [address],[address], [address], [facility] 04/26/2023 10:59:31 COVID-19, mRNA, LNP-S, PF, 50 mcg/0.5 mL 4 completed Not Available [facility] 12/26/2024 13:30:47 COVID-19, mRNA, LNP-S, PF, 50 mcg/0.5 mL 4 completed Not Available [facility] 12/26/2024 13:30:47 Influenza, adjuvanted, trivalent, PF 4 completed Not Available [facility] 12/26/2024 13:30:47 COVID-19, mRNA, LNP-S, PF, 50 mcg/0.5 mL 5 completed Not Available [facility] 12/26/2024 13:30:47 IPV 2 completed Susana Allar null, [facility] 01/25/2023 09:28:19 Influenza, adjuvanted, trivalent, PF 7 completed Susana Allar null, [facility] 01/25/2023 09:28:19 Influenza, adjuvanted, trivalent, PF 9 completed Susana Allar null, [facility] 01/25/2023 09:28:19 Influenza, adjuvanted, trivalent, PF 8 completed Susana Allar null, [facility] 01/25/2023 09:28:19 zoster recombinant 0 completed Susana Allar null, [facility] 01/25/2023 09:28:19 zoster recombinant 9 completed Susana Allar null, [facility] 01/25/2023 09:28:19 Influenza, adjuvanted, quadrivalent, PF 0 completed Susana Allar null, [facility] 01/25/2023 09:28:19 Influenza, adjuvanted, quadrivalent, PF 2 completed Susana Allar null, [facility] 01/25/2023 09:28:19 Influenza, adjuvanted, quadrivalent, PF 1 completed Susana Allar null, [facility] 01/25/2023 09:28:19 COVID-19, mRNA, LNP-S, PF, 100 mcg/0.5mL dose or 50 mcg/0.25mL dose 1 completed Susana Allar null, [facility] 01/25/2023 09:28:19 COVID-19, mRNA, LNP-S, PF, 100 mcg/0.5mL dose or 50 mcg/0.25mL dose 1 completed Susana Allar null, [facility] 01/25/2023 09:28:19 COVID-19, mRNA, LNP-S, PF, 100 mcg/0.5mL dose or 50 mcg/0.25mL dose 1 completed Susana Allar null, [facility] 01/25/2023 09:28:19 Pneumococcal conjugate PCV20, polysaccharide [id number] conjugate, adjuvant, PF 3 completed Susana Allar null, [facility] 01/25/2023 09:28:19 COVID-19, mRNA, LNP-S, PF, 30 mcg/0.3 mL dose, octavia-sucrose 2 completed Susana Allar null, [facility] 01/25/2023 09:28:19 COVID-19, mRNA, LNP-S, bivalent, PF, 50 mcg/0.5 mL or 25mcg/0.25 mL dose 3 completed Susana Allar null, [facility] 01/25/2023 09:28:19 COVID-19, mRNA, LNP-S, bivalent, PF, 50 mcg/0.5 mL or 25mcg/0.25 mL dose 2 completed Susana Allar null, [facility] 01/25/2023 09:28:19 pneumococcal polysaccharide PPV23 6 completed Susana Allar null, [facility] 01/25/2023 09:28:19 pneumococcal polysaccharide PPV23 6 completed [facility]ar null, [facility] 01/25/2023 09:28:19 Tdap 1 completed Susana Allar null, [facility] 01/25/2023 09:28:19 Tdap 1 completed Susana Allar null, [facility] 01/25/2023 09:28:19 Pneumococcal conjugate PCV 13 5 completed Susana Allar null, [facility] 01/25/2023 09:28:19 yellow fever live 2 completed Susana Allar null, [facility] 01/25/2023 09:28:19 yellow fever live 1 completed Susana Allar null, [facility] 01/25/2023 09:28:19 zoster live 7 completed Susana Allar null, [facility] 01/25/2023 09:28:19 Influenza, high-dose, trivalent, PF 4 completed Susana Allar null, [facility] 01/25/2023 09:28:19 Influenza, high-dose, trivalent, PF 6 completed Susaan Allar null, [facility] 01/25/2023 09:28:19 Influenza, high-dose, trivalent, PF 5 completed Susana Allar null, [facility] 01/25/2023 09:28:19 Influenza, split virus, trivalent, preservative 2 completed Susana Allar null, [facility] 01/25/2023 09:28:19 Influenza, split virus, trivalent, preservative 1 completed Susana Allar null, [facility] 01/25/2023 09:28:19 Influenza, split virus, trivalent, preservative 6 completed Susana Allar null, [facility] 01/25/2023 09:28:19 Influenza, split virus, trivalent, preservative 4 completed Susana Allar null, [facility] 01/25/2023 09:28:19 Influenza, split virus, trivalent, preservative 3 completed Susana Allar null, [facility] 01/25/2023 09:28:19 Influenza, split virus, trivalent, preservative 0 completed Susana Allar null, [facility] 01/25/2023 09:28:19 Influenza, split virus, trivalent, preservative 7 completed Susana Allar null, [facility] 01/25/2023 09:28:19 Influenza, split virus, trivalent, preservative 5 completed Susana Allar null, [facility] 01/25/2023 09:28:19 Td (adult), 5 Lf tetanus toxoid, preservative free, adsorbed 5 completed Susana Alllulu null, [facility] 01/25/2023 09:28:19 typhoid, ViCPs 2 completed Susana Allar null, [facility] 01/25/2023 09:28:19 typhoid, ViCPs 1 completed Susana Alllulu null, [facility] 01/25/2023 09:28:19 Hep A-Hep B 2 completed Susana Allar null, [facility] 01/25/2023 09:28:19 Hep A-Hep B 2 completed Susana Alllulu null, [facility] 01/25/2023 09:28:19 Hep A-Hep B 2 completed Susanahuy Leblanc walter, [facility] 01/25/2023 09:28:19 Past Encounters Encounter ID Performer Location Encounter Start Date Encounter Closed Date Diagnosis/Indication Diagnosis SNOMED-CT Code Diagnosis ICD10 Code Diagnosis IMO Codes Diagnosis Note [id number] Louis Cook MD [facility] [address] [place] [address] 12/26/2024 13:28:42 12/28/2024 12:14:11 Malignant neoplasm of prostate [id number] C61 2. Prostate cancer- cT1c - Luisa 3+3 = 6 - on expectant management - PSA (13.7) - increased - has fluctuated over the years- Follow-up in 3 months with PSA(if PSA increases significan t - check Prostate MRI and recommend TRUS bx Increased frequency of urination 712153102 R35.0 H/O Urinary frequency- he is off Lasix- incomplete emptying (188 mL)- stopped Gemtesa 75 mg daily Microscopic hematuria 19 [id number] R31.29 [id number] 1. Microscopi c hematuria- CT Urogram (12/12/24) [...] tract symptoms due to benign prostatic hypertrophy 5430553850 9101 N40.1 3. BPH- last PVR = 188 mL- continue Flomax 0.4 mg daily- continue Cialis 5 mg daily- check Bladder scan at Follow-up Multiple n odules of lung 592757442 R91.8 [id number] 4. Pulmonary nodules- CT Urogram (12/12/24) - no renal masses, hydronephr osis or filling defects - 3 (1mm) stones in Right kidney - + diffuse bladder wall thickening and large prostate.- Lung - small nodules - new 7 mm nodule Right medial lower lobe- (repeat Chest CT scan recommende d in 3-6 months) [id number] Louis Cook MD [facility] [address] [place] [id number] 01/17/2025 12:09:37 01/18/2025 10:40:44 Malignant neoplasm of prostate [id number] C61 Health Concerns Section Related Observation LastModified by Organization Detai ls LastModified Time None Recorded Concern Status LastModified by Organization Details LastModified Time None Recorded Payers Encounter Date Sequence Insurance Name Policy Number Policy Sam Covered Member ID Sam Member ID Guarantor Name 01/17/2025 1 [employer] (MEDICARE [place]AC[place] PPO) [id number] Enrike Coleman [id number] Enrike Coleman Notes Date Note Type Note Provider Name and Address Organization Details Recorded Time 01/17/2025 text/html Pt presents to clinic for TOV. Urine is clear.one old small clot noted after urination.Per Dr Cook, pt to continue to hold Eliquis for 24 hours and see how urine is looking with cath out, if clear then resume. Pt and stated understanding.Nu rse visit completed by Meli Sanchez RN. NATALIE Godoy - [facility] 01/17/2025 13:13:36
--- OUTSIDE RECORDS SUMMARY | 2025-01-24 20:26 | XMS_ITS | Clinical Summary ---
Author Organization [facility] Address [address], [place] [address] Care Team Providers Care Underwear Cutter Name Role Phone Unavailable Primary Care [...] each transition of care or referral. [facility] Allergies No known active allergies Medications [...] - 1-dose 75+ series) 2013 COVID-19 Vaccine (2024-2 6 season) 2024 Influenza Vaccine (#1) 2024 HepA [...]
[2025-01-24 20:30] VITALS: BP 127/63; PULSE 83; RESP 16; TEMP 36.6; O2SAT 96; BMI 28.8
[2025-01-24 21:11] LABS: Appearance Urine Cloudy (Clear)
--- NOTE | 2025-01-24 21:20 | ED.GENADULT ---
HPI - General Adult General Chief complaint: Urogenital Problems, Male Stated complaint: catheter removed, bleeding Time Seen by Provider: 01/24/25 20:39 Source: patient and family Mode of arrival: ambulatory Limitations: altered mental status (Dementia) History of Present Illness HPI narrative: 84-year-old male with a history of cognitive impairment from dementia presents to the ED for evaluation of hematuria. He has a really hard time telling if this is from an active source of direct bleeding or if it is mixed in his urine. He is typically very incontinent of urine but is worse than usual per his report. It sounds like he was hospitalized with sepsis from urinary source a couple of months ago and had a catheter placed that was removed a week ago. He has been voiding normally up until this point with no feelings of urinary retention. Patient reports that he had a couple little spots of blood in his urine yesterday, did not report them to his . She does help him change his brief regularly. Today, he noticed more bleeding, is also endorsing frequency and urgency but no frankie dysuria. No fever. I do not think that we have all of his urine cultures available to us but I can see a prior 1 from last January showing Staph epidermidis with many sensitivities. He denies abdominal pain, denies any trauma or lesion to the head of the penis. No changes in his bowel habits. No falls or recent injury. He denies vomiting, loss of appetite. He had cataract surgery yesterday, reports that this was uncomplicated. He struggles with the timeline and order of events but does seem reliable for review of systems. His does help fill in many of my questions and seems quite reliable. He is anticoagulated on Eliquis because of AFib. Past medical history notable for cognitive impairment secondary to dementia, history of prostate cancer, AFib, type 2 diabetes, chronic heart failure and recent urosepsis. Home meds are reviewed. Most notable for both aspirin and Eliquis he is also on to Chet fill and Flomax. Remainder of medications are noncontributory to did days evaluation. Was recently treated with Keflex 2 weeks ago for urinary retention with infection. This note is reviewed. ROS is notable for the urinary symptoms only, he is asymptomatic to it other than just noting the blood visually. Otherwise denies times 12 systems today. does give the impression that his mental status changes are at his baseline. Related Data Home Medications ?Medication ?Instructions ?Recorded ?Confirmed apixaban 5 mg tablet (Eliquis) 5 mg PO Q12H 02/15/22 01/09/25 blood sugar diagnostic (True 02/15/22 10/25/24 Metrix Glucose Test Strip) metformin 500 mg tablet,extended 2,000 mg PO QPM 02/15/22 01/09/25 release 24 hr acetaminophen 500 mg capsule 1,000 mg PO BID 07/27/23 01/09/25 tamsulosin 0.4 mg capsule 0.4 mg PO DAILY 07/27/23 01/09/25 empagliflozin 10 mg tablet 10 mg PO DAILY 02/24/24 01/09/25 (Jardiance) glipizide 10 mg tablet, extended 20 mg PO DAILY 02/24/24 01/09/25 release 24 hr metoprolol succinate 25 mg 25 mg PO DAILY 02/24/24 01/09/25 tablet,extended release 24 hr nitroglycerin 0.4 mg sublingual 0.4 mg sublingual Q5M PRN 02/24/24 01/09/25 tablet rosuvastatin 20 mg tablet 20 mg PO QPM 02/24/24 01/09/25 aspirin 81 mg capsule 81 mg PO DAILY 06/11/24 01/09/25 cholecalciferol (vitamin D3) 1,250 1,250 mcg PO Q7D 12/28/24 01/09/25 mcg (50,000 unit) capsule prednisone 5 mg tablet 5 mg PO DAILY 12/28/24 01/09/25 tadalafil 5 mg tablet 5 mg PO HS 12/28/24 01/09/25 Previous Rx's ?Medication ?Instructions ?Recorded furosemide 20 mg tablet 40 mg (2 x 20 mg) PO DAILY@0800 30 01/02/25 days #60 tabs potassium chloride 10 mEq 20 meq (2 x 10 mEq) PO DAILY 30 01/02/25 capsule,extended release days #60 caps cephalexin 500 mg capsule 500 mg PO QID #12 caps 01/05/25 clotrimazole 1 % topical cream 1 applic topical BID 10 days #15 01/05/25 grams fluconazole 150 mg tablet 150 mg PO Q3D 2 doses #2 tabs 01/05/25 Allergies Allergy/AdvReac Type Severity Reaction Status Date / Time No Known Drug Allergies Allergy Verified 01/09/25 17:52 PFSH PFSH Medical History Hematuria ?R31.9 - Hematuria, unspecified (ICD-10) Type 2 diabetes mellitus ?E11.9 - Type 2 diabetes mellitus without complications (ICD-10) HFrEF (heart failure with reduced ejection fraction) ?I50.20 - Unspecified systolic (congestive) heart failure (ICD-10) ASHD (arteriosclerotic heart disease) ?I25.10 - Atherosclerotic heart disease of [place] coronary artery without angina pectoris (ICD-10) Chronic anticoagulation ?Z79.01 - intermediate teacher (current) use of anticoagulants (ICD-10) Hypertension ?I10 - Essential (primary) hypertension (ICD-10) BPH without urinary obstruction ?N40.0 - Benign prostatic hyperplasia without lower urinary tract symptoms (ICD-10) Mild cognitive impairment ?G31.84 - Mild cognitive impairment of uncertain or unknown etiology (ICD-10) Prostate cancer ?C61 - Malignant neoplasm of prostate (ICD-10) Mobitz (type) I (Wenckebach's) atrioventricular block ?I44.1 - Atrioventricular block, second degree (ICD-10) Atrial fibrillation ?I48.91 - Unspecified atrial fibrillation (ICD-10) Iron deficiency anemia ?D50.9 - Iron deficiency anemia, unspecified (ICD-10) Erectile dysfunction ?N52.9 - Male erectile dysfunction, unspecified (ICD-10) Displacement of lumbar intervertebral disc without myelopathy ?M51.26 - Other intervertebral disc displacement, lumbar region (ICD-10) Degeneration of lumbar or lumbosacral intervertebral disc ?M51.37 - Other intervertebral disc degeneration, lumbosacral region (ICD-10) Vitamin B12 deficiency ?E53.8 - Deficiency of other specified B group vitamins (ICD-10) Lumbar radiculopathy ?M54.16 - Radiculopathy, lumbar region (ICD-10) 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 - Complete traumatic metacarpophalangeal amputation of unspecified finger, initial encounter (ICD-10) Diabetes ?E11.9 - Type 2 diabetes mellitus without complications (ICD-10) COVID ?U07.1 - COVID-19 (ICD-10) Surgical History S/P CABG x 3 ?Z95.1 - Presence of aortocoronary bypass graft (ICD-10) History of permanent cardiac pacemaker placement ?Z95.0 - Presence of cardiac pacemaker (ICD-10) History of cholecystectomy ?Z90.49 - Acquired absence of other specified parts of digestive tract (ICD-10) History of appendectomy ?Z90.49 - Acquired absence of other specified parts of digestive tract (ICD-10) History of arthroscopy of left shoulder (03/21/96) ?Z98.890 - Other specified postprocedural states (ICD-10) History of arthroscopy of right shoulder (11/26/11) ?Z98.890 - Other specified postprocedural states (ICD-10) S/P ORIF (open reduction internal fixation) fracture (04/05/14) ?Z98.890 - Other specified postprocedural states (ICD-10) ?Z87.81 - Personal history of (healed) traumatic fracture (ICD-10) Family History Mother Bowel cancer Social History What is your current living situation?: I presently have a place to live Problems where you live: no known problems Problems where you live details: no known problems In the past 12 months, utilities in danger of being shut off: no In past 12 months, lack of transportation kept you from medical appts, meetings, work, or getting things needed for daily living: no In the past 12 mos, have been you worried that your food would run out before you had money to buy more?: never true In the past 12 mos, the food you bought just didn't last and you didn't have money to buy more?: never true Highest level of school completed/degree received: Bachelor's degree Smoking Status: Former smoker What tobacco products do you use: cigarettes Smoking quit date/years: >15 years ago Do you use any of these nicotine containing products: None Second hand tobacco smoke exposure: Yes How often do you have a drink containing alcohol: 4 or more times a week How many standard drinks containing alcohol do you have on a typical day: 1 or 2 How often do you have six or more drinks on one occasion: Never AUDIT-C Alcohol total score: 4 Non-prescribed substance use: denies use Caffeine: No How often does anyone, including family, friends and others, physically hurt you: never How often does anyone, including family, friends and others, insult or talk down to you: never How often does anyone, including family, friends and others, threaten you with harm: never How often does anyone, including family, friends and others, scream or curse at you: never service: No Exam Const: Vital Signs, click to edit/add: Vital Signs - 24 hr 01/24/25 20:30 01/24/25 21:48 Temperature 97.8 F 98.0 F Pulse Rate [Pulse Oximeter] 83 77 Respiratory Rate 16 18 Blood Pressure [Ri ght Upper Arm] 127/63 123/71 Pulse Oximetry 96 97 Oxygen Delivery Me thod Room Air Room Air Documenting provider has reviewed patient's vital signs: yes Common normals: no apparent distress and alert General appearance: cooperative Other: Memory impairment is evident, but friendly and cooperative. No agitation. Appears well nourished and well hydrated. HENMT: Other: Some mild facial bruising, consistent with recent cataract surgery. Eye: Common normals: conjunctivae normal Conjunctiva: conjunctiva(e) normal Neck & C-Spine: General: normal visual inspection Resp: Common normals: normal respiratory effort, no use of accessory muscles and clear to auscultation bilaterally Effort & inspection: able to speak in complete sentences Auscultation: clear to auscultation bilaterally Cardio: Common normals: regular rate, regular rhythm, S1 normal heart sound, S2 normal heart sound and no murmurs Rate: regular rate Rhythm: regular rhythm Heart sounds: S1 normal and S2 normal GI: Common normals: Normal to inspection, nondistended, normoactive bowel sounds present, soft to palpation, non-tender, no hepatosplenomegaly and no masses Palpation: soft and no hepatosplenomegaly : Common normals: no CVA tenderness Bladder/kidney exam: no CVA tenderness Back & Pelvis: Common normals: no CVA tenderness Other: Blood tinged urine noted in brief but no active bleeding from the head of the penis. No signs of abrasions or periurethral irritation. For skin and external genitalia otherwise appear normal. No blood clots. Extremity: Common normals: normal to inspection and normal capillary refill Neuro: Common normals: moves all extremities Sensorium/orientation: alert Psych: Appearance: grossly normal Attitude: engaged Insight: fair Judgement: limited Skin: Common normals: no rashes or lesions noted General skin exam: no rashes or lesions noted Course Course ED Course: 84-year-old male with bloody urine. No signs of obstruction, is voiding freely. Post void residual is certainly present but not excessive, consistent with his known prior history. Blood work is drawn, does not seem like return of sepsis. No significant leukocytosis, no elevation of creatinine. Electrolytes look good. I recommended to the family that we hold his Eliquis tonight, tomorrow morning and tomorrow evening. Planning to restart Wednesday. Begin treating what seems like a urine infection with ciprofloxacin 500 b.i.d.. This was chosen because he has been on Keflex within the last few weeks. Patient will update his urology team in a couple of days with his progress on if the bleeding has stopped, if his incontinence has improved, etc.. Alarm symptoms such as high fever, lots of big blood clots or persistent bleeding were reviewed as indications to come back to the ED. Patient and his verbalized understanding and agreement. Prescription given through [facility] due to holiday. Vital Signs Vital signs: Initial Vital Signs Temperature 97.8 F 01/24/25 20:30 Temperature Source Temporal Artery Scan 01/24/25 20:30 Pulse Rate 83 01/24/25 20:30 Respiratory Rate 16 01/24/25 20:30 Blood Pressure 127/63 01/24/25 20:30 Blood Pressure Mean 84 01/24/25 20:30 Blood Pressure Position Sitting 01/24/25 20:30 Pulse Oximetry 96 01/24/25 20:30 Oxygen Delivery Method Room Air 01/24/25 20:30 Vital Signs Temperature 97.8 F 01/24/25 20:30 Pulse Rate 83 01/24/25 20:30 Respiratory Rate 16 01/24/25 20:30 Blood Pressure 127/63 01/24/25 20:30 Pulse Oximetry 96 01/24/25 20:30 Oxygen Delivery Method Room Air 01/24/25 20:30 Temperature 98.0 F 01/24/25 21:48 Pulse Rate 77 01/24/25 21:48 Respiratory Rate 18 01/24/25 21:48 Blood Pressure 123/71 01/24/25 21:48 Pulse Oximetry 97 01/24/25 21:48 Oxygen Delivery Method Room Air 01/24/25 21:48 Medical Decision Making Lab Data Lab results reviewed: Yes I reviewed the patient's lab results Lab results narrative: Overall are pretty reassuring. No obvious signs of infection. No elevation of inflammatory markers, abnormal creatinine. The urine certainly does show blood but it does also show signs of infection with nitrites, bacteria and cloudy urine. Labs: Lab Results 01/24/25 01/24/25 Range/Units 20:35 21:39 WBC 7.12 (4.50-11.00) K/uL RBC 3.80 L (4.30-5.90) m/uL Hgb 9.9 L (13.5-17.5) gm/dL Hct 31.9 L (37.0-53.0) % MCV 84 (80-100) fL MCH 26 (26-34) pg MCHC 31 L (32-36) gm/dL RDW Coeff of Ferny 15.5 (11.5-15.5) % Plt Count 176 (140-440) K/uL Neut % (Auto) 59.2 (42.0-72.0) % Lymph % (Auto) 23.9 (20-44) % [place] % (Auto) 10.1 (0.0-11.0) % Eos % (Auto) 6.3 (0.0-7.0) % Baso % (Auto) 0.4 (0.0-3.0) % Neut # (Auto) 4.21 (1.7-7.0) K/uL Lymph # (Auto) 1.70 (0.90-2.90) K/uL [place] # (Auto) 0.70 (0.00-0.90) K/UL Eos # (Auto) 0.45 (0.00-0.50) K/uL Baso # (Auto) 0.03 (0.00-0.30) K/uL Abs Immat Gran (auto) 0.01 (0.00-0.30) K/uL Imm/Tot Granulo (auto) 0.1 % Sodium 134 L (135-149) mmol/L Potassium 3.9 (3.6-5.1) mmol/L Chloride 95 L (96-114) mmol/L Carbon Dioxide 28 (20-32) mmol/L Anion Gap 11 (7-15) mEq/L BUN 20 (7-30) mg/dL Creatinine 1.0 (0.5-1.5) mg/dL Estimated Creat Clear 49.58 Estimated GFR 73 ml/min Glucose 284 H (60-115) mg/dL Lactate 2.3 H (0.5-1.9) mmol/L Calcium 9.2 (8.4-10.6) mg/dL C-Reactive Protein 0.5 (0.5-1.0) mg/dL Urine Color Red A (Yellow) Urine Appearance Cloudy A (Clear) Urine pH 5.5 (5.0-8.5) Ur Specific [place] <= 1.005 (1.000-1.030) Urine Protein 2+ A (Negative) Urine Glucose (UA) 3+ A (Negative) Urine Ketones Negative (Negative) Urine Blood 3+ A (Negative) Urine Nitrite Positive A (Negative) Urine Bilirubin 1+ A (Negative) Urine Urobilinogen 0.2 (0.2-1.0) Ur Leukocyte Esterase Negative (Negative) Urine RBC >100 A (0-2) Urine WBC 2-5 (0-5) Ur Squamous Epith Cells Few (None-Few) Urine Bacteria Few A (None) Discharge Plan Discharge Clinical Impression: Acute hemorrhagic cystitis Patient Disposition: Home w/ Parent or Adult Condition: Stable Instructions: Urinary Tract Infection in Men (DC) Additional Instructions: As we discussed, I think the bleeding is coming from a urinary tract infection again. There are signs of infection but also blood in your urine sample. There are not signs of infection in your blood work thankfully. I cannot tell for sure if the bleeding is coming from the bladder wall which would be common in an infection, or if it is from the prostate. By treating the urinary tract infection, the bleeding should stop within a few days. If it is related to a different source, I will need you to follow-up with your urologist. Do not take your Eliquis tonight or in the morning. If the bleeding has slowed down, you may restart the Eliquis night but I would prefer that you just plan to restarted on Wednesday morning. ciprofloxacin is the antibiotic. He will take 1 pill 2 times daily for 7 days. We will culture your urine and let you know if we need to switch antibiotics. Remember to take your 1st dose of the ciprofloxacin right away tonight when you get home, pick this up from the vending machine in the lobby. If you have severe bleeding, severe weakness, high fevers or other signs of complication, return to the emergency room in the meantime. Otherwise, please update your urologist on Wednesday night or Wednesday morning with a message. Let them know that you were seen for urinary bleeding, treated for a bladder infection. Let them know if the bleeding has stopped or if it persists and if the incontinence has improved as well. Activity Level: Activity as Tolerated Prescriptions: No Action tamsulosin 0.4 mg capsule 0.4 mg PO DAILY acetaminophen 500 mg capsule 1,000 mg PO BID glipizide 10 mg tablet extended release 24hr 20 mg PO DAILY nitroglycerin 0.4 mg tablet, sublingual 0.4 mg sublingual Q5M PRN metoprolol succinate 25 mg tablet extended release 24 hr 25 mg PO DAILY rosuvastatin 20 mg tablet 20 mg PO QPM Jardiance 10 mg tablet 10 mg PO DAILY fluconazole 150 mg tablet 150 mg PO Q3D Qty: 2 0RF cephalexin 500 mg capsule 500 mg PO QID Qty: 12 0RF clotrimazole 1 % cream 1 applic topical BID 10 Days Qty: 15 0RF (DME) True Metrix Glucose Test Strip Strip MISCELLANEOUS Patient Comments: TEST 2 TIMES PER WEEK. metformin 500 mg tablet extended release 24 hr 2,000 mg PO QPM Patient Comments: TAKE 4 TABLETS (2,000 MG) BY MOUTH ONCE DAILY WITH EVENING MEAL. Eliquis 5 mg tablet 5 mg PO Q12H Patient Comments: TAKE 1 TABLET (5 MG) BY MOUTH TWO TIMES DAILY. aspirin 81 mg capsule 81 mg PO DAILY cholecalciferol (vitamin D3) 1,250 mcg (50,000 unit) capsule 1,250 mcg PO Q7D prednisone 5 mg tablet 5 mg PO DAILY tadalafil 5 mg tablet 5 mg PO HS potassium chloride 10 mEq Capsule, Extended Release 20 meq PO DAILY 30 Days Qty: 60 0RF furosemide 20 mg Tablet 40 mg PO DAILY@0800 30 Days Qty: 60 0RF Follow Up/Referrals: Bari Toscano MD [Primary Care Provider, Family Practice] Stand Alone Forms: MyHealth Info Instructions
--- OUTSIDE RECORDS SUMMARY | 2025-01-24 21:24 | XMS_ITS | Clinical Summary ---
Author Organization [facility] Address [address] , [address] [place] [address] Phone Care Team Providers Care Certified Orthotist/Pedorthist Name Role Phone MedRec, MedRec Unavailable Conditions or Problems Problem Name Problem Code Onset Date Status Entry Date Provider Comment Standard Description Annotate Leg weakness, bilateral 585999792 (SNOMED CT) Active Marco Antonio Alicea MD Paresis of lower extremity Peripheral polyneuropathy 304435667 (SNOMED CT) Active Marco Antonio Alicea MD Peripheral nerve disease Nonspecific paroxysmal spell 7034246 (SNOMED CT) 03/26 Active 03/26 Marco Antonio Alicea MD Disturbance of consciousness Mild cognitive impairment 096694304 (SNOMED CT) 03/19 Active 03/19 Marco Antonio Alicea MD Mild neurocognitive disorder Memory loss 48348795 (SNOMED CT) 10/31 Active 10/31 Marco Antonio Alicea MD Amnesia Medications Medication Instructions Start Date Stop Date Generic Name [facility] Provider METFORMIN HCL ER 500 MG [id number] 04/28 metformin (glucophage xr) [id number] Marco Antonio Alicea MD SODIUM CHLORIDE 0.9 % SOLN 04/28 sodium chloride 55708932116 Marco Antonio Alicea MD GABAPENTIN 300 MG CAPS TAKE 1 CAPSULE (300 MG) BY MOUTH AT BEDTIME. 04/28 gabapentin [id number] Marco Antonio Alicea MD ELIQUIS 5 MG TABS TAKE 1 TABLET (5 MG) BY MOUTH TWO TIMES DAILY. 04/28 apixaban [id number] Marco Antonio Alicea MD LISINOPRIL-HYDRO CHLOROTHIAZIDE 20-25 MG TABS 04/28 lisinopril-hydr ochlorothiazide [id number] Marco Antonio Alicea MD TRUE METRIX BLOOD GLUCOSE TEST STRP TEST 2 TIMES PER WEEK. 04/28 blood sugar diagnostic [id number] Marco Antonio Alicea MD TROSPIUM CHLORIDE 20 MG TABS TAKE ONE TABLET BY MOUTH DAILY 04/28 trospium [id number] Marco Antonio Alicea MD GLIPIZIDE ER 2.5 MG [id number] 04/28 glipizide [id number] Marco Antonio Alicea MD PREDNISONE 10 MG TABS TAKE 1-2 TABLETS (10-20 MG) BY MOUTH ONCE DAILY WITH A MEAL. DIRECTED 04/28 prednisone [id number] Marco Antonio Alicea MD TAMSULOSIN HCL 0.4 MG CAPS TAKE 1 CAPSULE (0.4 MG) BY MOUTH ONCE DAILY AFTER A MEAL. 04/28 tamsulosin [id number] Marco Antonio Alicea MD ENTRESTO 24-26 MG TABS TAKE 1 TABLET BY MOUTH TWO TIMES DAILY. sacubitril-vals karin [id number] Marco Antonio Alicea MD VITAMIN B-12 1,000 MCG TAB 1000 TAKE 1 TABLET (1,000 MCG) BY MOUTH ONCE DAILY. VITAMIN B-12 1,000 MCG TAB 1000 Marco Antonio Alicea MD JARDIANCE 10 MG TABS TAKE 1 TABLET (10 MG) BY MOUTH ONCE DAILY. empagliflozin [id number] Marco Antonio Alicea MD ELIQUIS 5 MG TABS TAKE 1 TABLET (5 MG) BY MOUTH TWO TIMES DAILY. apixaban [id number] Marco Antonio Alicea MD TROSPIUM CHLORIDE 20 MG TABS TAKE ONE TABLET BY MOUTH DAILY trospium [id number] Marco Antonio Alicea MD FUROSEMIDE 20 MG TABS TAKE 1 TABLET (20 MG) BY MOUTH ONCE DAILY IN THE MORNING. furosemide [id number] Marco Antonio Alicea MD ROSUVASTATIN CALCIUM 20 MG TABS TAKE 1 TABLET (20 MG) BY MOUTH AT BEDTIME. rosuvastatin [id number] Marco Antonio Alicea MD METOPROLOL SUCCINATE ER 25 MG [id number] TAKE 1 TABLET (25 MG) BY MOUTH ONCE DAILY. metoprolol succinate [id number] Marco Antonio Alicea MD TAMSULOSIN HCL 0.4 MG CAPS TAKE 1 CAPSULE (0.4 MG) BY MOUTH ONCE DAILY AFTER A MEAL. tamsulosin [id number] Marco Antonio Alicea MD ISOSORBIDE MONONITRATE ER 30 MG [id number] TAKE 1 TABLET (30 MG) BY MOUTH ONCE DAILY. isosorbide mononitrate [id number] Marco Antonio Alicea MD METFORMIN HCL ER 500 MG [id number] TAKE 4 TABLETS (2,000 MG) BY MOUTH ONCE DAILY WITH EVENING MEAL. metformin (glucophage xr) [id number] Marco Antonio Alicea MD NITROGLYCERIN 0.[address] 1 TABLET (0.4 MG) UNDER THE TONGUE EVERY 5 MINUTES IF NEEDED FOR CHEST PAIN. UP TO 3 TABLETS IN 15 MINUTES. nitroglycerin [id number] Marco Antonio Alicea MD GABAPENTIN 300 MG CAPS TAKE 1 CAPSULE (300 MG) BY MOUTH AT BEDTIME. gabapentin [id number] Marco Antonio Alicea MD POTASSIUM CHLORIDE GEM ER 20 MEQ CR-TABS TAKE 1 TABLET (20 MEQ) BY MOUTH ONCE DAILY. potassium chloride [id number] Marco Antonio Alicea MD TERBINAFINE HCL 1 % CREA APPLY TOPICALLY TO AFFECTED AREA(S) TWO TIMES DAILY. terbinafine hcl [id number] Marco Antonio Alicea MD TERBINAFINE HCL 250 MG TABS TAKE 1 TABLET (250 MG) BY MOUTH ONCE DAILY. terbinafine hcl [id number] Marco Antonio Alicea MD GLIPIZIDE ER 10 MG [id number] TAKE 2 TABLETS (20 MG) BY MOUTH ONCE DAILY BEFORE A MEAL. glipizide [id number] Marco Antonio Alicea MD PREDNISONE 20 MG TABS TAKE 1 TABLET (20 MG) BY MOUTH ONCE DAILY WITH A MEAL. 09/20 prednisone [id number] Yue Schulte PA-C TROSPIUM CHLORIDE 20 MG TABS TAKE ONE TABLET BY MOUTH DAILY 04/28 trospium [id number] Yue Garciail PA-C PREDNISONE 10 MG TABS TAKE 1-2 TABLETS (10-20 MG) BY MOUTH ONCE DAILY WITH A MEAL. DIRECTED 04/28 prednisone [id number] Yue Schulte PA-C GABAPENTIN 300 MG CAPS TAKE 1 CAPSULE (300 MG) BY MOUTH AT BEDTIME. 09/08 gabapentin [id number] Yue GIL-C ID NOW COVID-19 KIT TEST DIRECTED TODAY 09/17 covid-19 molecular test assay [id number] Yue Schulte PA-C PREDNISONE 20 MG TABS TAKE 1 TABLET (20 MG) BY MOUTH ONCE DAILY WITH A MEAL. 09/20 prednisone [id number] Yue Schulte PA-C ELIQUIS 5 MG TABS TAKE 1 TABLET (5 MG) BY MOUTH TWO TIMES DAILY. 04/28 apixaban [id number] Yue Garciail PA-C TAMSULOSIN HCL 0.4 MG CAPS TAKE 1 CAPSULE (0.4 MG) BY MOUTH ONCE DAILY AFTER A MEAL. 04/28 tamsulosin [id number] Yue Garciail PA-C ID NOW COVID-19 KIT TEST DIRECTED TODAY 09/17 covid-19 molecular test assay [id number] Marco Antonio Alicea MD TRUE METRIX BLOOD GLUCOSE TEST STRP TEST 2 TIMES PER WEEK. 04/28 blood sugar diagnostic [id number] Marco Antonio Alicea MD LISINOPRIL-HYDRO CHLOROTHIAZIDE 20-25 MG TABS 04/28 lisinopril-hydr ochlorothiazide [id number] Marco Antonio Alicea MD METFORMIN HCL ER 500 MG [id number] 04/28 metformin [id number] Marco Antonio Alicea MD GLIPIZIDE ER 2.5 MG [id number] 09/08 glipizide [id number] Marco Antonio Alicea MD SODIUM CHLORIDE 0.9 % SOLN 04/28 sodium chloride [id number] Marco Antonio Alicea MD Medications Administered No [...] and results reviewed. Total score [M MSE] [id number] Normal Total scor e [MoCA] MMSE SCORE [...] Yes Consent To Release information to the [employer] ([employer]) Plan of Care Type Date Detail Pending [...] ORDERS Follow up ABBY ORDERS Patient Instructions [facility]-[id number] Documentation of current medicatio ns ORDERS Follow up CPT-14637 Nerve Conduction 11-12 studies CPT-64501 EMG with NCS (5+ muscles) - 2 limbs 12/22 ORDERS Patient Instructions LOINC 03287-0 MMSE ORDERS Follow up ABBY ORDERS Patient Instructions ORDERS Follow up [facility]-[id number] Documentation of current medicatio ns ORDERS Patient Instructions ORDERS Follow up ABBY in clinic or telemedicine 2 LOINC 63178-9 MMSE ORDERS Patient Instructions ORDERS Follow up telemedicine 10/31 [facility]-[id number] Documentation of current medicatio ns ORDERS Neuropsychology Evaluation 2 [facility]-[id number] Documentation of current medicatio ns LOINC 27502-9 MMSE Vital Signs No information available. Immunizations No information available. Advance Directives No information available.
[2025-01-24 21:44] LABS: Lactate* 2.3 mmol/L (0.5-1.9)
[2025-01-24 21:45] LABS: Hematocrit* 31.9 % (37.0-53.0); Hemoglobin* 9.9 gm/dL (13.5-17.5); Immature Granulocytes Abs Auto 0.01 K/uL (0.00-0.30); Immature Granulocytes Pct Auto 0.1 %; Lymphocytes Absolute Auto 1.70 K/uL (0.90-2.90); Mean Corpuscular HGB Conc 31 gm/dL (32-36); Mean Corpuscular Hemoglobin 26 pg (26-34); Mean Corpuscular Volume 84 fL (80-100); RDW Coefficient of Variation % 15.5 % (11.5-15.5); Red Blood Count* 3.80 m/uL (4.30-5.90); White Blood Count* 7.12 K/uL (4.50-11.00)
[2025-01-24 21:46] LABS: Slide Review Reflex No
[2025-01-24 21:48] VITALS: BP 123/71; PULSE 77; RESP 18; TEMP 36.7; O2SAT 97
[2025-01-24 21:58] LABS: Chloride* 95 mmol/L (96-114); Potassium* 3.9 mmol/L (3.6-5.1); Sodium* 134 mmol/L (135-149)
[2025-01-24 22:02] LABS: Anion Gap 11 mEq/L (7-15); Blood Urea Nitrogen* 20 mg/dL (7-30); Calcium* 9.2 mg/dL (8.4-10.6); Carbon Dioxide* 28 mmol/L (20-32); Creatinine* 1.0 mg/dL (0.5-1.5); Est. Creatinine Clearance* 49.58; Estimated Glomerular Filt Rate 73 ml/min; Glucose* 284 mg/dL (60-115)
== END 2025-01-24 22:38 | disposition home or self-care (01) ==
PROVIDERS: Emergency Provider Family Medicine; PCP Family Medicine
DX: N30.01 Acute cystitis with hematuria (principal); Z79.01 Long term (current) use of anticoagulants
CPT/HCPCS: 36415; 51798; 80048; 81001; 83605; 85025; 86140; 87086; 99284

== ENCOUNTER 2025-01-29 14:05 | Emergency (ER) | payer MEDICARE, SELFPAY ==
[2025-01-29] VITALS (8 sets, daily range): BP systolic 99–116; BP diastolic 62–69; PULSE 71–79; RESP 16–97; TEMP 35.8–36.5; O2SAT 99–100; BMI 27.9
--- OUTSIDE RECORDS SUMMARY | 2025-01-29 14:11 | XMS_ITS | Clinical Summary ---
Author Organization [employer] [facility] Address [address] [place] [address] Care Team Providers Care Data Center Solutions Architect Name Role Phone Pardeep Baird [facility] Unavailable + Rocael Gamez Unavailable Bari Toscano MD Primary Care Provider Hudson Valle MD Unavailable [phone] Allergies No known active allergies Medications nitroglycerin [...] 24 hrs. 6 Tablet 5 4:06 PM SCREED OPERATOR 01/13/20 25 Active hyoscyamine sublingual (LEVSIN SL) 0.125 mg sublIndications: Post-operative state Place 1 Tablet (0.125 mg) under the tongue every 4 hours if needed for Bladder Spasms. 12 Tablet 5 4:06 PM SCREED OPERATOR 01/13/20 25 Active finasteride (PROSCAR) 5 mg tabletIndication s:Benign prostatic hyperplasia with incomplete bladder emptying Take 1 Tablet (5 mg) by mouth once daily in the morning. 30 Tablet 11 5 4:06 PM SCREED OPERATOR 01/13/20 25 Active lancetsIndicatio ns:Type 2 [...] 7 days. 14 Tablet 5 4:06 PM SCREED OPERATOR 01/13/20 025 fluconazole (DIFLUCAN) 100 mg tabletIndication s:Post-operative state Take 1 Tablet (100 mg) by mouth once daily for 10 days. 10 Tablet 5 4:06 PM SCREED OPERATOR 01/13/20 025 Active Problems Problem Noted [...] Type Department Care Team Description 01/19/2025 Refill [facility] [address] [place] [address] Bari Toscano MD Refill Request (Trueplus Lancets) 01/19/2025 Telephone [facility] [address] [place] [address] Bari Toscano MD Referral (cataract surgery) 01/17/2025 Orders Only [facility] Scanner 1 scan: (1-Ord) [facility], FILL AND PULL/VOIDING TRIAL/TOV, 01/17/2025 01/12/2025 2:07 PM SCREED OPERATOR Anesthesia Event [facility] [address] [place] [address] Rakesh Triplett MD Leech, Jeffrey Alan II, WILLIAM 01/12/2025 2:03 PM SCREED OPERATOR - 01/12/2025 3:06 PM SCREED OPERATOR Surgery [facility] [address] [place] [address] Louis Cook MD Cystoscopy, biopsy bladder 01/12/2025 11:36 AM SCREED OPERATOR - 01/12/2025 4:17 PM SCREED OPERATOR Hospital Encounter [facility] [address] [place] [address] Louis Cook MD Post-operative state (Primary Dx); Benign prostatic hyperplasia with incomplete bladder emptying Discharge Disposition: Home Self Care 01/12/2025 Travel 01/10/2025 1:40 PM SCREED OPERATOR Office Visit [facility] [address] [place] [address] Bari Toscano MD ER Follow up ([facility], 01/08/2025, weakness) 01/10/2025 Travel 01/08/2025 11:20 AM SCREED OPERATOR Office Visit [facility] [address] [facility] [address] Bari Toscano MD Preoperative Exam (DOS: 01/12/2025, CYSTOSCOPY BIOPSY BLADDER, Dr. Cook, ANW/DOS: 01/23/2025 and 2025, cataract, Dr. Naik, [facility]); Hospital F/U ([facility], 12/28/2024 - 01/02/2025, septic UTI); ER Follow up ([facility], 01/05/2025, fungal infection around catheter ) 01/08/2025 Orders Only [facility] Scanner 1 scan: (1-Ord) [facility], CHEST 2V, 01/08/2025 01/08/2025 Orders Only [facility] Scanner 1 scan: (1-Ord) [facility], XR ABD 1VIEW, 01/08/2025 01/08/2025 Orders Only [facility] Scanner 1 scan: (1-Ord) [facility], 01/08/2025 01/08/2025 Orders Only [facility] Scanner 1 scan: (1-Ord) [facility], MULTIPLE LABS , 01/08/2025 01/08/2025 Orders Only [facility] Scanner 1 scan: (1-Ord) [facility], XR CHEST 2V, 01/08/2025 01/08/2025 Travel 01/05/2025 Orders Only [facility] Scanner 1 scan: (1-Ord) [facility], CHEST 1V PORTABLE, 01/05/2025 01/02/2025 Nurse Triage [facility] [address] [facility] [address] Bari Toscano MD Urinary Problem 12/31/2024 Orders Only [facility] Scanner 1 scan: (1-Ord) [facility], XR CHEST 1V PORTABLE , 12/31/2024 12/29/2024 4:00 PM CDT Ancillary Procedure [facility] [address] [place] [address] 12/28/2024 Orders Only [facility] Scanner 1 scan: (1-Ord) [facility], CHEST ABDOMEN PELV W/ CONTRAST, 12/28/2024 12/28/2024 Orders Only [facility] Scanner 1 scan: (1-Ord) [facility], XR CHEST 1V PORTABLE , 12/28/2024 12/26/2024 Orders Only [facility] Scanner 1 scan: (1-Ord) [facility], CYSTOSCOPY, 12/26/2024 12/12/2024 9:10 AM CDT Ancillary Procedure [facility] [address] [place] [address] 12/12/2024 8:15 AM CDT Orders Only [facility] [address] [place] [address] Lab, [place] <No scans attached> 12/11/2024 9:00 AM CDT Office Visit [facility] [place] [address] [place] [address] [address] [place] [address] Melanie Garcia PA Follow Up (6 month [...] Travel 12/05/2024 Transcribe Orders [facility] [phone] Louis Cook MD 11/22/2024 Refill [facility] [address] [place] [address] Bari Toscano MD Refill Request (True Metrix Glucose Test Strip) 11/22/2024 Orders Only [facility] [address] [place] [address] Bari Toscano MD <No scans attached> 11/21/2024 8:25 AM CDT Office Visit [facility] [address] [place] [address] Bari Toscano MD Follow Up 11/21/2024 Refill [facility] [address] [place] [address] Bari Toscnao MD Refill Request (Metformin, Glipizide Extended-release) 11/20/2024 4:00 PM CDT Office Visit [facility] [address] [place] [address] Erik Hahn MD Follow Up (excisional debridement of unhealing traumatic scalp laceration) 11/20/2024 Travel 11/16/2024 Orders Only [facility] Scanner 1 scan: (1-Ord) [facility] 11/16/2024 Refill [facility] [address] [place] [address] Bari Toscano MD Refill Request (Metformin, Jardiance) 11/14/2024 Refill [facility] [address] [place] [address] Bari Toscano MD Refill Request (Glipizide Extended-release) 11/09/[address] [facility] [address] [place] [address] Sheldon Enriquez RN 11/06/2024 3:15 PM CDT Office Visit [facility] [address] [place] [address] Erik Hahn MD Follow Up (Excisional debridement of left posterior scalp and right mid thigh abscess 10/25/24) 11/06/2024 Travel from Last 3 Months Immunizations Immunization Administration Dates Next Due AMB INFLUENZA IIV3 (AGE 65+ YRS) PF (Flu Clinic Only) 12/10/2017 AMB Influenza, IIV3 (Age >=3 years)(Flu Clinic Only) 12/23/2009 Amb Influenza, Inact (High-d ose) (Flu Clinic Only) 11/22/2015,11/30/2014,11/17/2013 COVID-19 VACCINE SPIKEVAX (M ODERNA 50MCG/0.5ML) 12YO+ PFS 06/02/2024,06/09/2023 COVID-19 vaccine (Moderna 100mcg/0.5mL) PF, MDV 12/23/2020,04/29/2020 COVID-19 vaccine (Green Biologics-Bio NTech 30mcg/0.3mL) 12YO+ CRISELDA-SUCROSE PF, MDV 06/11/2021 [...] on file Legal Sex Male 5:25 AM SCREED OPERATOR Gender Identity Not on file Sexual Orientation Not on file Obstetrics History Last Filed Vital Signs Vital Sign Reading Time Taken Comments Blood Pressure 119/71 01/12/2025 3:30 PM SCREED OPERATOR Pulse 69 01/12/2025 3:45 PM SCREED OPERATOR Temperature 36.6 C (97.9 F) 01/12/2025 2:45 PM SCREED OPERATOR Respiratory Rate 16 01/12/2025 3:45 PM SCREED OPERATOR Oxygen Saturation 98% 01/12/2025 3:45 PM SCREED OPERATOR Inhaled Oxygen Concentration - - Weight 81.6 kg (180 lb) 01/12/2025 12:56 PM SCREED OPERATOR Height 175.3 cm (5' 9) 01/12/2025 12:56 PM SCREED OPERATOR Body Mass Index 26.58 01/12/2025 12:56 PM SCREED OPERATOR Plan of Treatment Upcoming Encounters Date Type Department Care Team (Late st Contact Info) Description 02/06/2025 1:00 PM SCREED OPERATOR Cardiac Device Check [facility] [address] [place] [address] Health Maintenance Due Date Last Done Comments COVID-19 vaccine series (2024- season) 2024 06/02/2024, 11/25/2023, 06/09/2023, Additional history exists Influenza Vaccine (#1) 2024 , 11/10/2021, 12/09/2020, [...] Completed 01/19/2023 Medical Devices Implanted Type Area Box Estimator Device Identifier Shelf Expiration Date Model / Serial / Lot Occluder Meghan 40mm Atriclip Flex V Exclusion Sys - [id number] Implanted:Qty: 1 on 03/10/2024 by Tonja Redman MD at [facility] N/A: Heart [employer] 12/30/2024 [id number] / / [id number] Description:[employer] AtriCli p . SIZE: 40MM. REF: [id number]. LOT: [id number]. Implanted on 03/10/[address] Redman at [facility]. 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 2: within 30 days 01/12/2025 1:49 PM SCREED OPERATOR R31.29 Other microscopic hematuria GLUCOSE METER Timed 01/12/2025 12:29 PM SCREED OPERATOR SCAN-ELECTROCARDIOGRA M EKG 01/08/2025 12:00 AM SCREED OPERATOR SCAN-LABORATORY REPORT 01/08/2025 12:00 AM SCREED OPERATOR SCAN-RADIOLOGY REPORT 01/08/2025 12:00 AM SCREED OPERATOR SCAN-RADIOLOGY REPORT 01/08/2025 12:00 AM SCREED OPERATOR SCAN-RADIOLOGY REPORT 01/08/2025 12:00 AM SCREED OPERATOR SCAN-RADIOLOGY REPORT 01/05/2025 12:00 AM SCREED OPERATOR SCAN-RADIOLOGY REPORT 12/31/2024 12:00 AM CDT [...] Results * SCAN-OPERATIVE/PROCEDURE REPORT (01/17/2025 12:00 AM SCREED OPERATOR) us Scanner OTHER Final Result * PATH TISSUE EXAM (01/12/2025 2:24 PM SCREED OPERATOR) Case Report Pathology Report Case: [id number] Authorizing Provider: Louis Cook MD Collected: 01/12/2025 1424 Ordering Location: [facility] Received: 01/12/2025 1445 [facility] Pathologist: Lorena Kohler MD Specimen: Bladder Biopsy 01/16/2025 12:04 PM SCREED OPERATOR [facility] Final Diagnosis A) URINARY BLADDER, POSTERIOR WALL, BIOPSY: 1. 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 Muscularis propria: Present 3. Negative for in-situ and invasive malignancy 01/16/2025 12:04 PM SCREED OPERATOR [facility] at 1204 SCREED OPERATOR Comment Case seen in consultation with Dr. Goncalves. 01/16/2025 12:04 PM SCREED OPERATOR [facility] Clinical Information 84-year-old gentleman with a history of prostate cancer (cT1c - Luisa 3+3=6, currently on expectant management). He has [...] PSA 12/26/24: 13.7 ng/mL 01/16/2025 12:04 PM SCREED OPERATOR [facility] Gross Description A) Received fresh labeled with the patient's name and bladder biopsy, are 2 fragments (0.4 and 0.5 cm in greatest dimension) of garcia-pink focally hyperemic soft tissue, entirely submitted in 1 cassette. ADW 01/12/2025 01/16/2025 12:04 PM SCREED OPERATOR [facility] Microscopic Description The final diagnosis is based on microscopic examination of appropriate sections of all specimens. 01/16/2025 12:04 PM SCREED OPERATOR [facility] Additional Information Interpreted at [facility] - [address] [facility] [address], [place] [address] 01/16/2025 12:04 PM SCREED OPERATOR [facility] Biopsy (Bladder Biopsy) 01/12/2025 2:24 PM SCREED OPERATOR 01/12/2025 2:45 PM SCREED OPERATOR Louis Cook MD PATHOLOGY/CYTOLOGY Final R esult [facility] [address] [place] [address], [place] * [facility] MASK PR5 (01/12/2025 2:17 PM SCREED OPERATOR) Narrative Krunal Wu CRNA - 01/12/2025 2:17 PM SCREED OPERATOR Krunal Wu CRNA 01/12/2025 2:18 PM Procedure: Supraglottic Patient location during procedure: OR Supraglottic Airway Properties Mask Ventilation: easy Type: unique Tube Size: 5 Insertion Attempts: 1 Placement Verification: auscultation and CO2 detection Assessment Assessment: atraumatic and dentition unchanged Mehul Taylor MD ANESTHESIA PX NOTE ORDERABLES Final Result * (ABNORMAL) GLUCOSE METER (01/12/2025 12:29 PM SCREED OPERATOR) GLUCOSE METER 105(H) 65 - 100 mg/dL 01/12/2025 12:32 PM SCREED OPERATOR [facility] Blood BLOOD SPECIMEN / Unknown 01/12/2025 12:29 PM SCREED OPERATOR 01/12/2025 12:32 PM SCREED OPERATOR us Louis Cook MD CHEMISTRY Final Resu lt [facility] [address] [place] [address], [place] * SCAN-RADIOLOGY REPORT (01/08/2025 12:00 AM SCREED OPERATOR) Only the most recent of6 resultswithin the time period is included. Anatomical Region Laterality Modality Other us Scanner OTHER Final Result * SCAN-LABORATORY REPORT (01/08/2025 12:00 AM SCREED OPERATOR) us Scanner OTHER Final Result * SCAN-ELECTROCARDIOGRAM EKG (01/08/2025 12:00 AM SCREED OPERATOR) us Scanner OTHER Final Result * [...] TASIA Referring MD: LONNIE MARIE Site: [facility] Reading Location: MOBILE IP [...] documentation: 3cc ml diluted Definity, lot #[id number], [facility]# [id number] was administered peripherally to enhance visualization of all left ventricular segments. . This study was interpreted by an IAC accredited facility. CC: HIM (med records) [facility], Med/Surg - IP [facility]. Final Procedure Note Ubaldo Fontenot MD - 12/29/2024 ECHOCARDIOGRAM MAC YARBROUGH : 1940 84 years Study Date: 12/29/2024 2:54:44 PM Gender: M BP: 122/66 mmHg Height: 170.00 cm BSA: 1.98 m Weight: 87.00 kg Tech: [facility] Referring MD: LONNIE MARIE Site: [facility] Reading Location: MOBILE IP [...] documentation: 3cc ml diluted Definity, lot #[id number], [facility]#[id number] was administered peripherally to enhance visualization of allleft ventricular segments. . This study was interpreted by an IAC accredited facility. CC: HIM (med records) [facility], Med/Surg - IP [facility]. Final us Lonnie GIL ECHO ORD Final [...] POCT Creatinine (12/12/2024 9:17 AM CDT) Pathologist [facility] POCT,CREATININ E, ISTAT 1.1 0.6 - 1.3 mg/dL 12/12/2024 9:30 AM CDT [facility] Blood BLOOD SPECIMEN / Unknown [facility] / Unknown 12/12/2024 9:17 AM CDT 12/12/2024 9:17 AM CDT Louis Cook MD CHEMISTRY Final Resu lt [facility] [place] [address] [address], [place] [phone] [facility] [address] [place] [address], [place] [phone] * (ABNORMAL) URINE ALBUMIN TO CREATININE RATIO, RANDOM (11/21/2024 9:50 AM CDT) ALB RAND URINE 351.0 mg/L 11/21/2024 6:24 PM CDT [facility] CREATININE,URIN E 0.59 g/L 11/21/2024 6:24 PM CDT [facility] ALBUMIN TO CREATININE RATIO,RAND UR 594.9(H) <30.0 mg/g creat 11/21/2024 6:24 PM CDT [facility] Urine URINE SPECIMEN / Unknown Non-Blood / Unknown 11/21/2024 9:50 AM CDT 11/21/2024 10:37 AM CDT Narrative [facility] - 11/21/2024 6:24 PM CDT If Albumin to Creatinine Ratio is elevated, consider the following: Elevations seen with incipient nephropathy associated with diabetes mellitus or hypertension. Stress, exercise,hematuria, and urinary tract infection may also produce elevated results. If clinically indicated, confirm with 24 Hour Albumin to Creatinine Ratio. Bari Toscano MD URINE Final Result [facility] [address] [place] [address], [place] * METHYLMALONIC ACID BLOOD (11/21/2024 9:29 AM CDT) METHYLMALONIC ACID 98 85 - 423 nmol/L 11/22/2024 5:45 PM CDT [employer] Comment: See Note 1 Serum methylmalonic acid [...] neural tube defects and intrauterine growth restriction. [facility] utilized Multi-Modal Decomposition (MMD) analysis to establish first and second trimester-specific MMA reference intervals in , as given below: MMA, First trimester (<13 wks gestation): 58-167 nmol/L MMA, Second trimester (13-23 wks gestation): 63-241 nmol/L Note 1 This test was developed and its analytical performance characteristics have been determined by [facility]. It has not been cleared or approved by the FDA. This assay has been validated pursuant to the CLIA regulations and is used for clinical purposes. Blood BLOOD SPECIMEN / Unknown [facility] / Unknown 11/21/2024 9:29 AM CDT 11/21/2024 9:29 AM CDT Bari Toscano MD SEND OUTS Final Result Performing Organization Address [facility]/ZIP Co de Phone Number Ping Communication [facility] [address] [place] [address], [place] [phone] * (ABNORMAL) HEMOGLOBIN A1C MONITORING (POCT) (11/21/2024 9:29 AM CDT) Pathologist [facility] POC HEMOGLOBIN A1C 8.3(H) <6.0 % [...] Result Performing Organization Address [facility] Co de Phone Number [employer] [facility] [address] [place] [address], [place] [phone] [facility] [address] [place] [address], [place] [phone] * VITAMIN B12 (11/21/2024 8:12 AM CDT) [facility] VITAMIN B12 658 200 - 1100 pg/mL 11/22/2024 6:04 AM CDT [facility] Blood BLOOD SPECIMEN / Unknown [facility] / Unknown 11/21/2024 8:12 AM CDT 11/21/2024 8:12 AM CDT Bari Toscano MD CHEMISTRY Final Result Performing Organization Address [facility] Co de Phone Number Ping Communication [facility] [address] [place] [address], [place] [phone] * SCAN-ELECTROENCEPHALOGRAM EEG INTERP (11/16/2024 12:00 AM CDT) us Scanner OTHER Final Result from Last 3 Months Insurance * Guarantor: Mac Yarbrough David Account Type Relation to Patient Date of Phone Billing Address Personal/Family Self 1940 [address] [facility] [place] [address] MEDICARE PART A HB ONLY BLUE CROSS MEDICARE ADVANTAGE Advance Directives Documents on File Type Date Recorded 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 Healthcare Directive 02/10/2024 INVALID , [place] PAGE, 02/10/2024 Power of Data Communications Software Consultant 10/19/1996 DURABLE PO WER OF SAP ANALYST FOR HEALTH CARE, [facility], 10/19/1996 Power of Data Communications Software Consultant 10/19/1996 STATUTORY SHORT FORM POWER OF SAP ANALYST, [facility], 10/19/1996 Healthcare Directive 03/04/1993 HEALTH CARE DECLARATION, [facility], 03/04/1993 * Full Code (Latest Code [...] 7:00 PM 04/07/2012 3:58 PM Care Teams Data Center Solutions Architect Relationship Specialty Start Date End Date Bari Toscano MD [address] [place] [address] PCP - General Family Practice 08/14/13 Pardeep Baird [facility] Surgery - Orthopedics 09/09/12 Rocael Gamez [address] [place] [address] Ophthalmology Surgery 09/09/12 [place] [address] [place] [address] Rheumatology 03/07/24
--- OUTSIDE RECORDS SUMMARY | 2025-01-29 14:11 | XMS_ITS | Clinical Summary ---
Author Organization [facility] Address [address] [facility] , [address] [place] [address] Phone Care Team Providers Care Fire Protection Designer Name Role Phone MedRec, MedRec Unavailable Conditions or Problems Problem Name Problem Code Onset Date Status Entry Date Provider Comment Standard Description Annotate Leg weakness, bilateral 569457399 (SNOMED CT) Active Marco Antonio Alicea MD Paresis of lower extremity Peripheral polyneuropathy 869998458 (SNOMED CT) Active Marco Antonio Alicea MD Peripheral nerve disease Nonspecific paroxysmal spell 2525543 (SNOMED CT) 03/26 Active 03/26 Marco Antonio Alicea MD Disturbance of consciousness Mild cognitive impairment 773721806 (SNOMED CT) 03/19 Active 03/19 Marco Antonio Alicea MD Mild neurocognitive disorder Memory loss 00774501 (SNOMED CT) 10/31 Active 10/31 Marco Antonio Alicea MD Amnesia Medications Medication Instructions Start Date Stop Date Generic Name [facility] Provider METFORMIN HCL ER 500 MG [id number] 04/28 metformin (glucophage xr) [id number] Marco Antonio Alicea MD SODIUM CHLORIDE 0.9 % SOLN 04/28 sodium chloride 08067065914 Marco Antonio Alicea MD GABAPENTIN 300 MG CAPS TAKE 1 CAPSULE (300 MG) BY MOUTH AT BEDTIME. 04/28 gabapentin [id number] Marco Antonio Alicea MD ELIQUIS 5 MG TABS TAKE 1 TABLET (5 MG) BY MOUTH TWO TIMES DAILY. 04/28 apixaban [id number] Marco Antonio Alicea MD LISINOPRIL-HYDRO CHLOROTHIAZIDE 20-25 MG TABS 04/28 lisinopril-hydr ochlorothiazide [id number] Marco Antonio Alicea MD TRUE METRIX BLOOD GLUCOSE TEST STRP TEST 2 TIMES PER WEEK. 04/28 blood sugar diagnostic [id number] Marco Antonio Alicea MD TROSPIUM CHLORIDE 20 MG TABS TAKE ONE TABLET BY MOUTH DAILY 04/28 trospium [id number] Marco Antonio Alicea MD GLIPIZIDE ER 2.5 MG [id number] 04/28 glipizide [id number] Marco Antonio Alicea MD PREDNISONE 10 MG TABS TAKE 1-2 TABLETS (10-20 MG) BY MOUTH ONCE DAILY WITH A MEAL. DIRECTED 04/28 prednisone [id number] Marco Antonio Alicea MD TAMSULOSIN HCL 0.4 MG CAPS TAKE 1 CAPSULE (0.4 MG) BY MOUTH ONCE DAILY AFTER A MEAL. 04/28 tamsulosin 16163012665 Marco Antonio Alicea MD ENTRESTO 24-26 MG TABS TAKE 1 TABLET BY MOUTH TWO TIMES DAILY. sacubitril-vals karin [id number] Marco Antonio Alicea MD VITAMIN B-12 1,000 MCG TAB 1000 TAKE 1 TABLET (1,000 MCG) BY MOUTH ONCE DAILY. VITAMIN B-12 1,000 MCG TAB 1000 Marco Antonio Alicea MD JARDIANCE 10 MG TABS TAKE 1 TABLET (10 MG) BY MOUTH ONCE DAILY. empagliflozin [id number] Marco Antonio Alicea MD ELIQUIS 5 MG TABS TAKE 1 TABLET (5 MG) BY MOUTH TWO TIMES DAILY. apixaban [id number] Marco Antonio Alicea MD TROSPIUM CHLORIDE 20 MG TABS TAKE ONE TABLET BY MOUTH DAILY trospium [id number] Marco Antonio Alicea MD FUROSEMIDE 20 MG TABS TAKE 1 TABLET (20 MG) BY MOUTH ONCE DAILY IN THE MORNING. furosemide [id number] Marco Antonio Alicea MD ROSUVASTATIN CALCIUM 20 MG TABS TAKE 1 TABLET (20 MG) BY MOUTH AT BEDTIME. rosuvastatin [id number] Marco Antonio Alicea MD METOPROLOL SUCCINATE ER 25 MG [id number] TAKE 1 TABLET (25 MG) BY MOUTH ONCE DAILY. metoprolol succinate [id number] Marco Antonio Alicea MD TAMSULOSIN HCL 0.4 MG CAPS TAKE 1 CAPSULE (0.4 MG) BY MOUTH ONCE DAILY AFTER A MEAL. tamsulosin [id number] Marco Antonio Alicea MD ISOSORBIDE MONONITRATE ER 30 MG [id number] TAKE 1 TABLET (30 MG) BY MOUTH ONCE DAILY. isosorbide mononitrate [id number] Marco Antonio Alicea MD METFORMIN HCL ER 500 MG [id number] TAKE 4 TABLETS (2,000 MG) BY MOUTH ONCE DAILY WITH EVENING MEAL. metformin (glucophage xr) [id number] Marco Antonio Alicea MD NITROGLYCERIN 0.[address] 1 TABLET (0.4 MG) UNDER THE TONGUE EVERY 5 MINUTES IF NEEDED FOR CHEST PAIN. UP TO 3 TABLETS IN 15 MINUTES. nitroglycerin [id number] Marco Antonio Alicea MD GABAPENTIN 300 MG CAPS TAKE 1 CAPSULE (300 MG) BY MOUTH AT BEDTIME. gabapentin [id number] Marco Antonio Alicea MD POTASSIUM CHLORIDE GEM ER 20 MEQ CR-TABS TAKE 1 TABLET (20 MEQ) BY MOUTH ONCE DAILY. potassium chloride [id number] Marco Antonio Alicea MD TERBINAFINE HCL 1 % CREA APPLY TOPICALLY TO AFFECTED AREA(S) TWO TIMES DAILY. terbinafine hcl [id number] Marco Antonio Alicea MD TERBINAFINE HCL 250 MG TABS TAKE 1 TABLET (250 MG) BY MOUTH ONCE DAILY. terbinafine hcl [id number] Marco Antonio Alicea MD GLIPIZIDE ER 10 MG [id number] TAKE 2 TABLETS (20 MG) BY MOUTH ONCE DAILY BEFORE A MEAL. glipizide [id number] Marco Antonio Alicea MD PREDNISONE 20 MG TABS TAKE 1 TABLET (20 MG) BY MOUTH ONCE DAILY WITH A MEAL. 09/20 prednisone [id number] Yue Schulte PA-C TROSPIUM CHLORIDE 20 MG TABS TAKE ONE TABLET BY MOUTH DAILY 04/28 trospium [id number] Yue Garciail PA-C PREDNISONE 10 MG TABS TAKE 1-2 TABLETS (10-20 MG) BY MOUTH ONCE DAILY WITH A MEAL. DIRECTED 04/28 prednisone [id number] Yue Schulte PA-C GABAPENTIN 300 MG CAPS TAKE 1 CAPSULE (300 MG) BY MOUTH AT BEDTIME. 09/08 gabapentin [id number] Yue GIL-C ID NOW COVID-19 KIT TEST DIRECTED TODAY 09/17 covid-19 molecular test assay [id number] Yue Schulte PA-C PREDNISONE 20 MG TABS TAKE 1 TABLET (20 MG) BY MOUTH ONCE DAILY WITH A MEAL. 09/20 prednisone [id number] Yue Schulte PA-C ELIQUIS 5 MG TABS TAKE 1 TABLET (5 MG) BY MOUTH TWO TIMES DAILY. 04/28 apixaban [id number] Yue Garciail PA-C TAMSULOSIN HCL 0.4 MG CAPS TAKE 1 CAPSULE (0.4 MG) BY MOUTH ONCE DAILY AFTER A MEAL. 04/28 tamsulosin [id number] Yue Garciail PA-C ID NOW COVID-19 KIT TEST DIRECTED TODAY 09/17 covid-19 molecular test assay [id number] Marco Antonio Alicea MD TRUE METRIX BLOOD GLUCOSE TEST STRP TEST 2 TIMES PER WEEK. 04/28 blood sugar diagnostic [id number] Marco Antonio Alicea MD LISINOPRIL-HYDRO CHLOROTHIAZIDE 20-25 MG TABS 04/28 lisinopril-hydr ochlorothiazide 43468048724 Marco Antonio Alicea MD METFORMIN HCL ER 500 MG [id number] 04/28 metformin [id number] Marco Antonio Alicea MD GLIPIZIDE ER 2.5 MG [id number] 09/08 glipizide [id number] Marco Antonio Alicea MD SODIUM CHLORIDE 0.9 % SOLN 04/28 sodium chloride [id number] Marco Antonio Alicea MD Medications Administered No [...] and results reviewed. Total score [M MSE] [id number] Normal Total scor e [MoCA] MMSE SCORE [...] Yes Consent To Release information to the [employer] [id number] (Pictarine[employer]) Plan of Care Type Date Detail Pending [...] ORDERS Follow up ABBY ORDERS Patient Instructions [facility]-[id number] Documentation of current medicatio ns ORDERS Follow up CPT-06347 Nerve Conduction 11-12 studies CPT-18873 EMG with NCS (5+ muscles) - 2 limbs 12/22 ORDERS Patient Instructions LOINC 36583-5 MMSE ORDERS Follow up ABBY ORDERS Patient Instructions ORDERS Follow up [facility]-[id number] Documentation of current medicatio ns ORDERS Patient Instructions ORDERS Follow up ABBY in clinic or telemedicine 2 LOINC 66205-5 MMSE ORDERS Patient Instructions ORDERS Follow up telemedicine 10/31 [facility]-[id number] Documentation of current medicatio ns ORDERS Neuropsychology Evaluation 2 [facility]-[id number] Documentation of current medicatio ns LOINC 76000-8 MMSE Vital Signs No information available. Immunizations No information available. Advance Directives No information available.
--- OUTSIDE RECORDS SUMMARY | 2025-01-29 14:11 | XMS_ITS | Encounter Summary ---
Author Organization [facility] Address [address] [place] [address] Care Team Providers Care Research Fellow Name Role Phone Clinic, Not Listed Unavailable Unavailable Bari Toscano MD Primary Care Provider America Lim PA-C Unavailable [phone] Encounter Details Date Type Department Care Team (Late st Contact Info) Description 10/20/2024 Results Follow-Up [facility] - [address] [place] [address] [phone] America Lim PA-C [address] [place] [address] [place] [id number] METHYLMALONIC ACID, SERUM ([facility]), TSH ([facility]), VITAMIN [...] deficiency documented in this encounter Care Teams Research Fellow Relationship Specialty Start Date End Date Clinic, Not Listed PCP - Primary Care Clinic 04/06/06 Bari Toscano MD [address] [place] [address] PCP - General Family Medicine 08/30/24 America Lim PA-C [address] [facility] [address] [place] [address] Neurology 08/30/24 documented as of this encounter
--- OUTSIDE RECORDS SUMMARY | 2025-01-29 14:12 | XMS_ITS | Clinical Summary ---
Author Organization [facility] Address [address], [place] [address] Care Team Providers Care Music Engineer Name Role Phone Unavailable Primary Care Provider [...] for each transition of care or referral. [facility] Allergies No known active allergies Medications metFORMIN [...]
--- OUTSIDE RECORDS SUMMARY | 2025-01-29 14:12 | XMS_ITS | Clinical Summary ---
Author Organization [facility] Address [address] [place] [address] Care Team Providers Care Child Care Education Coordinator Name Role Phone Clinic, Not Listed Unavailable Unavailable Bari Toscano MD Primary Care Provider America Lim PA-C Unavailable [phone] Allergies No known active allergies Medications acetaminophen [...] Description 11/16/2024 7:30 AM CDT Ancillary Procedure [facility] [address] [place] [address] Memory loss or impairment from Last 3 [...] discharges were observed. Javy Acosta MD Neurologist, [facility] 2:57 PM 11/17/2024 us America Lim PA-C EEG ORDERABLE Final Res ult * CREATININE EGFR (10/31/2014 12:10 PM CDT) Creatinine 1.01 0.70 - 1.30 mg/dL 10/31/2014 12:46 PM CDT [facility] Est GFR (CKD-EPI) >60 >60 mL/min 10/31/2014 12:46 PM CDT [facility] EST GFR IF AM >60 >60 mL/min 10/31/2014 12:46 PM T [facility] Blood 10/31/2014 12:1 0 PM CDT 10/31/2014 12:15 PM CDT us Ericstephen Altamirano MD CHEMISTRY ORDERABLE Final R esult [facility] [address] [place] [address] from Last 3 Months or Most Recently Relevant to Health Maintenance Insurance MEDIC[place] PART A [place] [id number] [facility] [employer] MEDICARE ADVANTAGE Care Teams Child Care Education Coordinator Relationship Specialty Start Date End Date Clinic, Not Listed PCP - Primary Care Clinic 04/06/06 Bari Toscano MD [address] [place] [address] PCP - General Family Medicine 08/30/24 America Lim PA-C [address] [facility] [address] [place] [address] Neurology 08/30/24
--- NOTE | 2025-01-29 14:25 | CRLHL7_ITS ---
For Patients: As a result of the Century Cures Act, medical imaging exams and procedure reports are released immediately into your electronic medical record. You may view this report before your referring provider. If you have questions, please contact your health care provider. INDICATION: Vertigo. TECHNIQUE: CTA head using intravenous contrast with bolus tracking, 3D angiographic rendering using maximum intensity projection (MIP) and images permanently archived. CTA neck using intravenous contrast with bolus tracking, 3D angiographic rendering using maximum intensity projection (MIP) and images permanently archived. FINDINGS: CTA head: There is scattered intracranial atherosclerotic disease. There is normal opacification of the intracranial vasculature. There is no large vessel occlusion or significant intracranial stenosis. No aneurysm is identified. CTA neck: There is no significant carotid artery stenosis or dissection. There is no significant vertebral artery stenosis or dissection. IMPRESSION: No acute intracranial abnormality at CTA. No significant carotid or vertebral artery stenosis or dissection. Please note that all CT scans at this facility use dose modulation, iterative reconstruction, and/or weight-based dosing when appropriate to reduce radiation dose to as low as reasonably achievable. Dictated by Omar Singh MD @ 01/30/2025 6:42:37 AM (Electronically Signed)
--- NOTE | 2025-01-29 14:25 | CT_ITS ---
Patient: MAC YARBROUGH Facility:?[facility]IS Patient ID:?[id number] Site Patient ID:?[id number]. Site :?[id number] Study:?CT-Head WO STROKE PROTOCOL-01/29/2025 2:47:46 PM Ordering Physician:Betsy Eller Final Report: INDICATION: VERTIGO SPELL. TECHNIQUE: CT head without contrast. COMPARISON: 02/24/2024. FINDINGS: Generalized volume loss and changes of chronic small vessel ischemic disease with slightly disproportionate ventricular dilatation, as before. Intracranial atherosclerosis. No mass effect or midline shift. No CT evidence of acute hemorrhage or infarction. No abnormal extra-axial fluid collection. Bone windows show no acute calvarial fracture. Paranasal sinuses and orbits as imaged are unremarkable. IMPRESSION: No acute intracranial abnormality. Dictated by Marcelo Forman MD @ 01/29/2025 2:58:13 PM Please note that all CT scans at this facility use dose modulation, iterative reconstruction, and/or weight-based dosing when appropriate to reduce radiation dose to as low as reasonably achievable. Dictated by: Marcelo Forman MD @ 01/29/2025 14:58:36 (Electronic Signature)
--- NOTE | 2025-01-29 14:29 | ED.GENADULT ---
HPI - General Adult General Date Seen: 01/29/25 Chief complaint: Dizziness/Vertigo Stated complaint: dizziness/weakness Time Seen by Provider: 01/29/25 14:12 History of Present Illness HPI narrative: Patient is an 84-year-old male here with his for evaluation of dizziness. He says that he woke up feeling fine today, he went for a 1/2 hour walk outside with no difficulty. Shortly prior to arrival, he was sitting on the edge of the bed, and tried to stand up, felt immediately dizzy like things were spinning and fell back somewhat forcefully onto the bed. He notes that he was not even able to sit up because he was so dizzy. He denies any focal weakness, did not notice any other neurologic changes. He denies headache, chest pain or any other pain related complaints. Did have cataract surgery a few days ago, a CABG in March. He says that he has had this kind of thing happen a couple of times since his CABG. He is anticoagulated on Eliquis secondary to history of atrial fibrillation. Related Data Home Medications ?Medication ?Instructions ?Recorded ?Confirmed apixaban 5 mg tablet (Eliquis) 5 mg PO Q12H 02/15/22 01/09/25 blood sugar diagnostic (True 02/15/22 10/25/24 Metrix Glucose Test Strip) metformin 500 mg tablet,extended 2,000 mg PO QPM 02/15/22 01/09/25 release 24 hr acetaminophen 500 mg capsule 1,000 mg PO BID 07/27/23 01/09/25 tamsulosin 0.4 mg capsule 0.4 mg PO DAILY 07/27/23 01/09/25 empagliflozin 10 mg tablet 10 mg PO DAILY 02/24/24 01/09/25 (Jardiance) glipizide 10 mg tablet, extended 20 mg PO DAILY 02/24/24 01/09/25 release 24 hr metoprolol succinate 25 mg 25 mg PO DAILY 02/24/24 01/09/25 tablet,extended release 24 hr nitroglycerin 0.4 mg sublingual 0.4 mg sublingual Q5M PRN 02/24/24 01/09/25 tablet rosuvastatin 20 mg tablet 20 mg PO QPM 02/24/24 01/09/25 aspirin 81 mg capsule 81 mg PO DAILY 06/11/24 01/09/25 cholecalciferol (vitamin D3) 1,250 1,250 mcg PO Q7D 12/28/24 01/09/25 mcg (50,000 unit) capsule prednisone 5 mg tablet 5 mg PO DAILY 12/28/24 01/09/25 tadalafil 5 mg tablet 5 mg PO HS 12/28/24 01/09/25 Previous Rx's ?Medication ?Instructions ?Recorded furosemide 20 mg tablet 40 mg (2 x 20 mg) PO DAILY@0800 30 01/02/25 days #60 tabs potassium chloride 10 mEq 20 meq (2 x 10 mEq) PO DAILY 30 01/02/25 capsule,extended release days #60 caps cephalexin 500 mg capsule 500 mg PO QID #12 caps 01/05/25 clotrimazole 1 % topical cream 1 applic topical BID 10 days #15 01/05/25 grams fluconazole 150 mg tablet 150 mg PO Q3D 2 doses #2 tabs 01/05/25 Allergies Allergy/AdvReac Type Severity Reaction Status Date / Time No Known Drug Allergies Allergy Verified 01/09/25 17:52 Review of Systems Status of ROS: Reports: 10 or more systems reviewed and unremarkable except as noted in History and below [facility] Medical History Hematuria ?R31.9 - Hematuria, unspecified (ICD-10) Type 2 diabetes mellitus ?E11.9 - Type 2 diabetes mellitus without complications (ICD-10) HFrEF (heart failure with reduced ejection fraction) ?I50.20 - Unspecified systolic (congestive) heart failure (ICD-10) ASHD (arteriosclerotic heart disease) ?I25.10 - Atherosclerotic heart disease of [place] coronary artery without angina pectoris (ICD-10) Chronic anticoagulation ?Z79.01 - MCC (current) use of anticoagulants (ICD-10) Hypertension ?I10 - Essential (primary) hypertension (ICD-10) BPH without urinary obstruction ?N40.0 - Benign prostatic hyperplasia without lower urinary tract symptoms (ICD-10) Mild cognitive impairment ?G31.84 - Mild cognitive impairment of uncertain or unknown etiology (ICD-10) Prostate cancer ?C61 - Malignant neoplasm of prostate (ICD-10) Mobitz (type) I (Wenckebach's) atrioventricular block ?I44.1 - Atrioventricular block, second degree (ICD-10) Atrial fibrillation ?I48.91 - Unspecified atrial fibrillation (ICD-10) Iron deficiency anemia ?D50.9 - Iron deficiency anemia, unspecified (ICD-10) Erectile dysfunction ?N52.9 - Male erectile dysfunction, unspecified (ICD-10) Displacement of lumbar intervertebral disc without myelopathy ?M51.26 - Other intervertebral disc displacement, lumbar region (ICD-10) Degeneration of lumbar or lumbosacral intervertebral disc ?M51.37 - Other intervertebral disc degeneration, lumbosacral region (ICD-10) Vitamin B12 deficiency ?E53.8 - Deficiency of other specified B group vitamins (ICD-10) Lumbar radiculopathy ?M54.16 - Radiculopathy, lumbar region (ICD-10) 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 - Complete traumatic metacarpophalangeal amputation of unspecified finger, initial encounter (ICD-10) Diabetes ?E11.9 - Type 2 diabetes mellitus without complications (ICD-10) COVID ?U07.1 - COVID-19 (ICD-10) Surgical History S/P CABG x 3 ?Z95.1 - Presence of aortocoronary bypass graft (ICD-10) History of permanent cardiac pacemaker placement ?Z95.0 - Presence of cardiac pacemaker (ICD-10) History of cholecystectomy ?Z90.49 - Acquired absence of other specified parts of digestive tract (ICD-10) History of appendectomy ?Z90.49 - Acquired absence of other specified parts of digestive tract (ICD-10) History of arthroscopy of left shoulder (03/21/96) ?Z98.890 - Other specified postprocedural states (ICD-10) History of arthroscopy of right shoulder (11/26/11) ?Z98.890 - Other specified postprocedural states (ICD-10) S/P ORIF (open reduction internal fixation) fracture (04/05/14) ?Z98.890 - Other specified postprocedural states (ICD-10) ?Z87.81 - Personal history of (healed) traumatic fracture (ICD-10) Family History Mother Bowel cancer Social History What is your current living situation?: I presently have a place to live Problems where you live: no known problems Problems where you live details: no known problems In the past 12 months, utilities in danger of being shut off: no In past 12 months, lack of transportation kept you from medical appts, meetings, work, or getting things needed for daily living: no In the past 12 mos, have been you worried that your food would run out before you had money to buy more?: never true In the past 12 mos, the food you bought just didn't last and you didn't have money to buy more?: never true Highest level of school completed/degree received: Bachelor's degree Smoking Status: Former smoker What tobacco products do you use: cigarettes Smoking quit date/years: >15 years ago Do you use any of these nicotine containing products: None Second hand tobacco smoke exposure: Yes How often do you have a drink containing alcohol: 4 or more times a week How many standard drinks containing alcohol do you have on a typical day: 1 or 2 How often do you have six or more drinks on one occasion: Never AUDIT-C Alcohol total score: 4 Non-prescribed substance use: denies use Caffeine: No How often does anyone, including family, friends and others, physically hurt you: never How often does anyone, including family, friends and others, insult or talk down to you: never How often does anyone, including family, friends and others, threaten you with harm: never How often does anyone, including family, friends and others, scream or curse at you: never service: No Exam Narrative: Exam Narrative: Vital signs reviewed In general, an alert, nontoxic elderly male, arrived in a wheelchair. Head: Normocephalic, atraumatic. Eyes: Sclera clear. Pupils equal and reactive. Extraocular movements are full, no nystagmus. ENT: Mucous membranes moist. Neck: Supple without adenopathy. Heart: Regular rate and rhythm without murmur. Lungs: Clear. No increased work of breathing, crackles or wheezes. Abdomen: Soft, nontender to palpation. Extremities: Well perfused, pulses intact. No significant edema. Neurologic: Alert, conversant. Speech fluent, face symmetric. Moves all extremities equally. Cerebellar function intact by finger-nose testing. Gait now stable independently. Skin: Warm, dry well perfused. Affect: Normal. Const: Vital Signs, click to edit/add: Vital Signs - 24 hr 01/29/25 14:11 01/29/25 14:48 01/29/25 14:49 Temperature 96.5 F L Pulse Rate 79 77 Pulse Rate [Pulse Oximeter] 77 Respiratory Rate 24 16 Blood Pressure 116/66 Blood Pressure [Ri ght Upper Arm] 99/63 Pulse Oximetry 100 99 100 Oxygen Delivery Me thod Room Air 01/29/25 14:53 01/29/25 14:54 01/29/25 15:00 Temperature 97.7 F Pulse Rate 71 71 71 Pulse Rate [Pulse Oximeter] Respiratory Rate 97 H Blood Pressure 112/65 Blood Pressure [Ri ght Upper Arm] Pulse Oximetry 100 100 100 Oxygen Delivery Me thod 01/29/25 15:01 01/29/25 15:16 Temperature Pulse Rate 72 Pulse Rate [Pulse Oximeter] Respiratory Rate 16 18 Blood Pressure 108/69 111/62 Blood Pressure [Ri ght Upper Arm] Pulse Oximetry 100 Oxygen Delivery Me thod Course Course ED Course: Patient presents after an episode of vertigo at home, symptoms have resolved. Exam is normal. Case discussed with Neurology on-call, they recommended CT and CTA but if negative did not feel that he needed an MRI. Would recommend continued use of Eliquis. Initial vital signs here show a slightly low blood pressure of 99/63, this would be more consistent with an orthostatic type issue than stroke. He did not have any recurrence of symptoms when I stood him up here. He is not tachycardic. Recorded temperature is slightly low as well although it is very cold out today and I suspect this may be related to outside temperatures. Will recheck. At this time he does not show signs of sepsis related to his recent urinary tract infection. Will do lab work to rule out anemia, electrolyte disturbance, metabolic derangement or other contributing factors. I reviewed the patient's CT scan of the head and did not see any acute findings such as hemorrhage or mass effect. Radiology read this as no acute intracranial process. The CT angiogram preliminary read of the head and neck is negative. He is feeling reasonably well at this time. Labs are reviewed in their entirety and are notable for hyperglycemia with a blood sugar of 297, a very mildly elevated gap of 16 but a normal CO2 of 22. Lactate is 3 and I suspect this accounts for his mild anion gap. His white blood cell count is normal however, really no significant left shift, CRP is less than 0.5. High sensitivity troponin is negative, LFTs are normal. Magnesium is 1.8. I suspect that the lactate may be due to a component of dehydration, he is on a diuretic which was started a month ago. Of note, they were under the impression that that was prescribed just for 30 days and then he was to discontinue, I have asked them to reach out discussed this with Dr. Toscano as I suspect that the plan would have been to keep him on the diuretic. Nonetheless, I am going to give him 500 mL of normal saline, recheck a lactate make sure it is improving. He has been ambulatory here without difficulty, and I think if lactate is improved he can safely be discharged home. I do not see any other findings here suggestive of sepsis. Diagnosis: Dizzy spell. Dehydration. Vital Signs Vital signs: Initial Vital Signs Temperature 96.5 F L 01/29/25 14:11 Temperature Source Temporal Artery Scan 01/29/25 14:11 Pulse Rate 77 01/29/25 14:11 Respiratory Rate 24 01/29/25 14:11 Blood Pressure 99/63 01/29/25 14:11 Blood Pressure Mean 75 01/29/25 14:11 Blood Pressure Position Sitting 01/29/25 14:11 Pulse Oximetry 100 01/29/25 14:11 Oxygen Delivery Method Room Air 01/29/25 14:11 Vital Signs Temperature 96.5 F L 01/29/25 14:11 Pulse Rate 77 01/29/25 14:11 Respiratory Rate 24 01/29/25 14:11 Blood Pressure 99/63 01/29/25 14:11 Pulse Oximetry 100 01/29/25 14:11 Oxygen Delivery Method Room Air 01/29/25 14:11 Temperature 97.7 F 01/29/25 14:53 Pulse Rate 72 01/29/25 15:01 Respiratory Rate 18 01/29/25 15:16 Blood Pressure 111/62 01/29/25 15:16 Pulse Oximetry 100 01/29/25 15:01 Oxygen Delivery Method Room Air 01/29/25 14:11 Medications Administered Medications: Discontinued Medications Generic Name Dose Route Start Last Admin Trade Name Freq PRN Reason Stop Dose Admin Sodium Chloride 500 mls @ 500 mls/hr 01/29/25 15:21 01/29/25 16:15 0.9 % Sodium Chloride 500 Ml IV 01/29/25 16:20 Infused .Q1H ONE Infusion Medical Decision Making Lab Data Labs: Lab Results 01/29/25 01/29/25 01/29/25 Range/Units 14:30 14:49 16:22 WBC 7.76 (4.50-11.00) K/uL RBC 4.36 (4.30-5.90) m/uL Hgb 11.3 L (13.5-17.5) gm/dL Hct 36.5 L (37.0-53.0) % MCV 84 (80-100) fL MCH 26 (26-34) pg MCHC 31 L (32-36) gm/dL RDW Coeff of [place]y 15.6 H (11.5-15.5) % Plt Count 196 (140-440) K/uL Neut % (Auto) 73.9 H (42.0-72.0) % Lymph % (Auto) 16.4 L (20-44) % [place] % (Auto) 6.3 (0.0-11.0) % Eos % (Auto) 2.4 (0.0-7.0) % Baso % (Auto) 0.4 (0.0-3.0) % Neut # (Auto) 5.70 (1.7-7.0) K/uL Lymph # (Auto) 1.30 (0.90-2.90) K/uL [place] # (Auto) 0.50 (0.00-0.90) K/UL Eos # (Auto) 0.19 (0.00-0.50) K/uL Baso # (Auto) 0.03 (0.00-0.30) K/uL Abs Immat Gran (auto) 0.05 (0.00-0.30) K/uL Imm/Tot Granulo (auto) 0.6 % Sodium 133 L (135-149) mmol/L Potassium 4.3 (3.6-5.1) mmol/L Chloride 95 L (96-114) mmol/L Carbon Dioxide 22 (20-32) mmol/L Anion Gap 16 H (7-15) mEq/L BUN 24 (7-30) mg/dL Creatinine 1.0 (0.5-1.5) mg/dL Estimated Creat Clear 49.58 Estimated GFR 73 ml/min Glucose 297 H (60-115) mg/dL Lactate 3.0 H 2.4 H (0.5-1.9) mmol/L Calcium 9.3 (8.4-10.6) mg/dL Magnesium 1.8 (1.5-2.6) mg/dL Total Bilirubin 1.5 (0.1-1.5) mg/dL Direct Bilirubin 0.3 (0.0-0.5) mg/dL AST 24 (12-35) U/L ALT 17 (4-50) U/L Alkaline Phosphatase 104 (40-150) U/L Troponin I < 0.01 (0.01-0.04) ng/mL POC Troponin I High Sensi 5.9 (2.9-28.0) pg/mL C-Reactive Protein < 0.5 L (0.5-1.0) mg/dL Total Protein 7.1 (6.0-8.3) g/dL Albumin 4.2 (3.3-5.0) g/dL POC Glucose 312 H (60-115) mg/dl Discharge Plan Discharge Clinical Impression: Spell of dizziness Patient Disposition: Home, Self-Care Condition: Improved Instructions: Dizziness (ED) Additional Instructions: Make sure to talk with Dr. Toscano about your diuretic prescription as I suspect the intent was that you remain on this medication rather than stopping it after 30 days. Your tests here today are overall reassuring, the CT scans of your head do not show any evidence of bleeding or narrowing of the arteries. Continue current medications including her Eliquis. Follow-up with Dr. Toscano for recheck in the next week or so. For recurrent severe symptoms, or new symptoms such as high fevers, shaking chills, fainting, return to the ER at any time. Prescriptions: No Action tamsulosin 0.4 mg capsule 0.4 mg PO DAILY acetaminophen 500 mg capsule 1,000 mg PO BID glipizide 10 mg tablet extended release 24hr 20 mg PO DAILY nitroglycerin 0.4 mg tablet, sublingual 0.4 mg sublingual Q5M PRN metoprolol succinate 25 mg tablet extended release 24 hr 25 mg PO DAILY rosuvastatin 20 mg tablet 20 mg PO QPM Jardiance 10 mg tablet 10 mg PO DAILY fluconazole 150 mg tablet 150 mg PO Q3D Qty: 2 0RF cephalexin 500 mg capsule 500 mg PO QID Qty: 12 0RF clotrimazole 1 % cream 1 applic topical BID 10 Days Qty: 15 0RF (DME) True Metrix Glucose Test Strip Strip MISCELLANEOUS Patient Comments: TEST 2 TIMES PER WEEK. metformin 500 mg tablet extended release 24 hr 2,000 mg PO QPM Patient Comments: TAKE 4 TABLETS (2,000 MG) BY MOUTH ONCE DAILY WITH EVENING MEAL. Eliquis 5 mg tablet 5 mg PO Q12H Patient Comments: TAKE 1 TABLET (5 MG) BY MOUTH TWO TIMES DAILY. aspirin 81 mg capsule 81 mg PO DAILY cholecalciferol (vitamin D3) 1,250 mcg (50,000 unit) capsule 1,250 mcg PO Q7D prednisone 5 mg tablet 5 mg PO DAILY tadalafil 5 mg tablet 5 mg PO HS potassium chloride 10 mEq Capsule, Extended Release 20 meq PO DAILY 30 Days Qty: 60 0RF furosemide 20 mg Tablet 40 mg PO DAILY@0800 30 Days Qty: 60 0RF Follow Up/Referrals: Bari Toscano MD [Primary Care Provider, Family Practice] Stand Alone [facility]: [facility] Info Instructions
[2025-01-29 14:31] LABS: Glucose, Point-of-Care* 312 mg/dl (60-115)
[2025-01-29 14:42] LABS: Lactate Sepsis w/Reflex* 3.0 mmol/L (0.5-1.9)
[2025-01-29 14:53] LABS: Hematocrit* 36.5 % (37.0-53.0); Hemoglobin* 11.3 gm/dL (13.5-17.5); Immature Granulocytes Abs Auto 0.05 K/uL (0.00-0.30); Immature Granulocytes Pct Auto 0.6 %; Mean Corpuscular HGB Conc 31 gm/dL (32-36); Mean Corpuscular Hemoglobin 26 pg (26-34); Mean Corpuscular Volume 84 fL (80-100); RDW Coefficient of Variation % 15.6 % (11.5-15.5); Red Blood Count* 4.36 m/uL (4.30-5.90); White Blood Count* 7.76 K/uL (4.50-11.00)
--- OUTSIDE RECORDS SUMMARY | 2025-01-29 14:53 | XMS_ITS | Continuity of Care Document ---
Author Organization [facility], [facility] Address [address] 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 Plan of Treatment Reminders Order Date Submit Date Provider Last Modified By Organization Details Last Modified Time Details Appointments PSA 10 2025 01:30P M [facility] Not available Not available Not available ESTABLIS HED 10 2025 01:50P M Louis Cook MD Not available Not available Not available Lab urinalys is, dipstick 2024 025 [email or web address] [facility], [address], [place], [address], 11/10/2024 11:19:26 culture, urine [address] [facility], [address], [place], [address], 11/11/2024 10:45:08 Referral None recorded . Procedures [...] for provi gricelda revie w. Not Available [facility] [address], [place], [address], 11/11/2024 10:45:08 11/11/1911/10/2024 urina lysis , dipst ick BLOOD Large (250 RBC/uL ) Not Available [facility] [address], [place], [address], 11/10/2024 11:17:20 11/11/19 25 11/10/2024 urina lysis , dipst ick NITRITES Negati ve Not Available [facility] [address], [place], [address], 11/10/2024 11:17:20 11/11/19 25 11/10/2024 urina lysis , dipst ick LEUKOCYTES Small (25 WBC/uL ) Not Available [facility] [address], [place], [address], 11/10/2024 11:17:20 12/14/19 25 12/12/2024 CT, urogr am No observ ation record ed. [facility] [address], [place], [address], 12/18/2024 14:28:50 Result Notes None recorded. Procedures Surgical History Date Name Laterality Status Provider Name and Address Organization Details Recorded Time 5 Fill and Pull/Voiding Trial/TOV completed [facility] 01/17/2025 13:12:18 5 Cystoscopy- male completed Louis Cook MD [address] [facility],[address], [place], [address], [facility] 12/26/2024 19:09:00 5 Keflex post Cysto completed Carlos Enrique falcon [facility] 12/26/2024 13:31:05 5 Urinalysis completed Carlos Enrique Faganal-Cande ro [facility] 12/26/2024 13:30:59 5 REFUELER/blood draw completed Carlos Enrique Faganal-Manderson ro [facility] 12/05/2024 12:14:49 5 Bladder Scan completed Louis Cook MD [address] [place] [address],[address], [place], [address], [facility] 12/05/2024 12:32:40 5 Urine Culture completed Meli Rowan [facility] 11/10/2024 11:16:59 5 Urinalysis completed Meli Rowan [facility] 11/10/2024 11:16:57 5 Urine Culture completed Anastasiia Ingram [facility] 09/25/2024 12:27:34 5 Urinalysis completed Anastasiia Ingram [facility] 09/25/2024 11:46:34 5 Bladder Scan completed Anastasiia Ingram [facility] 09/25/2024 11:46:26 5 Blood Draw/REFUELER/PSA RESULTS completed Louis Cook MD [address] [place] [address],[address], [place], [address], [facility] 05/30/2024 12:41:37 4 Blood Draw/REFUELER/PSA RESULTS completed Carlos Enrique falcon [facility] 10/11/2023 10:18:27 3 Heart Surgery completed Louis Cook MD [address] [facility],[address], [place], [address], [facility] 09/28/2022 16:37:35 procedure on spine completed Louis Cook MD [address] [facility],[address], [place], [address], [facility] 09/28/2022 16:37:23 CYSTOSCOPY (SURG) completed Danay Lara [facility] 01/15/2025 15:17:54 Imaging Results None recorded. [...] Smoking Status Former Smoker Louis Cook MD [address] [facility] [address], [place], [address], [facility] - [facility] 09/28/2022 16:37:00 What Is Your Level [...] Response Diabetes Y Sexually Transmitted Infection N Bleeding Disorder Y Other Y High Blood Pressure Y Kidney Stones N Cancer Y Lung Disease N Depression N High Cholesterol N Heart Disease Y Immunizations Vaccine Type Date Status Note Provider Nam e and Address Organization Details Recorded Time Influenza, high-dose, quadrivalent, PF 3 completed Louis Cook MD [address] [place] [address],[address], [address], [facility] 04/26/2023 10:59:30 RSV, recombinant, protein subunit RSVpreF, adjuvant reconstituted, 0.5 mL, PF 3 completed Louis Cook MD [address] [place] [address],[address], [address], [facility] 04/26/2023 10:59:31 COVID-19, mRNA, LNP-S, PF, 50 mcg/0.5 mL 3 completed Louis Cook MD [address] [facility],[address], [place], [address], [facility] 04/26/2023 10:59:31 COVID-19, mRNA, LNP-S, PF, 50 mcg/0.5 mL 4 completed Not Available [facility] 12/26/2024 13:30:47 COVID-19, mRNA, LNP-S, PF, 50 mcg/0.5 mL 4 completed Not Available [facility] 12/26/2024 13:30:47 Influenza, adjuvanted, trivalent, PF 4 completed Not Available [facility] 12/26/2024 13:30:47 COVID-19, mRNA, LNP-S, PF, 50 mcg/0.5 mL 5 completed Not Available [facility] 12/26/2024 13:30:47 IPV 2 completed Susana Allar null, [facility] 01/25/2023 09:28:19 Influenza, adjuvanted, trivalent, PF 7 completed Susana Allar null, [facility] 01/25/2023 09:28:19 Influenza, adjuvanted, trivalent, PF 9 completed Susana Allar null, [facility] 01/25/2023 09:28:19 Influenza, adjuvanted, trivalent, PF 8 completed Susana Allar null, [facility] 01/25/2023 09:28:19 zoster recombinant 0 completed Susana Allar null, [facility] 01/25/2023 09:28:19 zoster recombinant 9 completed Susana Allar null, [facility] 01/25/2023 09:28:19 Influenza, adjuvanted, quadrivalent, PF 0 completed Susana Allar null, [facility] 01/25/2023 09:28:19 Influenza, adjuvanted, quadrivalent, PF 2 completed Susana Allar null, [facility] 01/25/2023 09:28:19 Influenza, adjuvanted, quadrivalent, PF 1 completed Susana Allar null, [facility] 01/25/2023 09:28:19 COVID-19, mRNA, LNP-S, PF, 100 mcg/0.5mL dose or 50 mcg/0.25mL dose 1 completed Susana Allar null, [facility] 01/25/2023 09:28:19 COVID-19, mRNA, LNP-S, PF, 100 mcg/0.5mL dose or 50 mcg/0.25mL dose 1 completed Susana Allar null, [facility] 01/25/2023 09:28:19 COVID-19, mRNA, LNP-S, PF, 100 mcg/0.5mL dose or 50 mcg/0.25mL dose 1 completed Susana Allar null, [facility] 01/25/2023 09:28:19 Pneumococcal conjugate PCV20, polysaccharide VFP036 conjugate, adjuvant, PF 3 completed Susana Allar null, [facility] 01/25/2023 09:28:19 COVID-19, mRNA, LNP-S, PF, 30 mcg/0.3 mL dose, octavia-sucrose 2 completed Susana Allar null, [facility] 01/25/2023 09:28:19 COVID-19, mRNA, LNP-S, bivalent, PF, 50 mcg/0.5 mL or 25mcg/0.25 mL dose 3 completed [facility] null, [facility] 01/25/2023 09:28:19 COVID-19, mRNA, LNP-S, bivalent, PF, 50 mcg/0.5 mL or 25mcg/0.25 mL dose 2 completed Susana Allar null, [facility] 01/25/2023 09:28:19 pneumococcal polysaccharide PPV23 6 completed Susana Allar null, [facility] 01/25/2023 09:28:19 pneumococcal polysaccharide PPV23 6 completed Susana Allar null, [facility] 01/25/2023 09:28:19 Tdap 1 completed Susana Allar null, [facility] 01/25/2023 09:28:19 Tdap 1 completed Susana Allar null, [facility] 01/25/2023 09:28:19 Pneumococcal conjugate PCV 13 5 completed Susana Allar null, [facility] 01/25/2023 09:28:19 yellow fever live 2 completed Susana Allar null, [facility] 01/25/2023 09:28:19 yellow fever live 1 completed Susana Allar null, [facility] 01/25/2023 09:28:19 zoster live 7 completed Susana Allar null, [facility] 01/25/2023 09:28:19 Influenza, high-dose, trivalent, PF 4 completed Susana Allar null, [facility] 01/25/2023 09:28:19 Influenza, high-dose, trivalent, PF 6 completed Susana Allar null, [facility] 01/25/2023 09:28:19 Influenza, high-dose, trivalent, PF 5 completed Susana Allar null, [facility] 01/25/2023 09:28:19 Influenza, split virus, trivalent, preservative 2 completed Susana Allar null, [facility] 01/25/2023 09:28:19 Influenza, split virus, trivalent, preservative 1 completed Susana Allar null, [facility] 01/25/2023 09:28:19 Influenza, split virus, trivalent, preservative 6 completed Susana Allar null, [facility] 01/25/2023 09:28:19 Influenza, split virus, trivalent, preservative 4 completed Susana Allar null, [facility] 01/25/2023 09:28:19 Influenza, split virus, trivalent, preservative 3 completed Susana Allar null, [facility] 01/25/2023 09:28:19 Influenza, split virus, trivalent, preservative 0 completed Susana Allar null, [facility] 01/25/2023 09:28:19 Influenza, split virus, trivalent, preservative 7 completed Susana Allar null, [facility] 01/25/2023 09:28:19 Influenza, split virus, trivalent, preservative 5 completed Susana Allar null, [facility] 01/25/2023 09:28:19 Td (adult), 5 Lf tetanus toxoid, preservative free, adsorbed 5 completed Susana Allar null, [facility] 01/25/2023 09:28:19 typhoid, ViCPs 2 completed Susana Allar null, [facility] 01/25/2023 09:28:19 typhoid, ViCPs 1 completed Susana Allar null, [facility] 01/25/2023 09:28:19 Hep A-Hep B 2 completed Susana Allar null, [facility] 01/25/2023 09:28:19 Hep A-Hep B 2 completed Susana Allar null, [facility] 01/25/2023 09:28:19 Hep A-Hep B 2 completed Susana Allar null, [facility] 01/25/2023 09:28:19 Past Encounters Encounter ID Performer Location Encounter Start Date Encounter Closed Date Diagnosis/Indication Diagnosis SNOMED-CT Code Diagnosis ICD10 Code Diagnosis IMO Codes Diagnosis Note [id number] ANTOINE RAMOS PA-C [facility] [address] [phone] 11/10/2024 10:42:48 11/17/2024 15:53:02 Urinary symptoms 681541301 R39.9 [id number] Health Concerns Section Related Observation LastModified by Organization Detai ls LastModified Time None Recorded Concern Status LastModified by Organization Details LastModified Time None Recorded Payers Encounter Date Sequence Insurance Name Policy Number Policy Sam Covered Member ID Sam Member ID Guarantor Name 11/10/2024 1 [employer]) [id number] Enrike Coleman [id number] Enrike Coleman Notes Date Note Type Note Provider Name and Address Organization Details Recorded Time 11/10/2024 text/html Bill is here for [facility] and [facility]- see triage note for Sx detailsNurse visit completed by Meli Sanchez RN. NATALIE Godoy - [facility] 11/10/2024 11:19:56
--- OUTSIDE RECORDS SUMMARY | 2025-01-29 14:53 | XMS_ITS | Continuity of Care Document ---
Author Organization [facility], [facility] Address [address] [place] [address] Care Team Providers Care Pressure Controller Name Role Phone LINDSAY SANFORD Referring Provider [...] mmadrigalvale ro [facility], [address], [place], [address], 12/26/2024 14:05:06 cultur e, urine 2024 025 [facility], [address], [place], [address], 12/30/2024 11:19:27 Referral None record ed. Procedures [...] Not Available [facility] [address], [place], [address], 11/22/2024 15:45:12 12/27/1912/26/2024 URINE CULTU RE final [...] for provi gricelda revie w. Not Available [facility] [address], [place], [address], 12/30/2024 11:19:27 12/27/1912/26/2024 urina lysis , dipst ick BLOOD Large (250 RBC/uL ) Not Available [facility] [address], [place], [address], 12/26/2024 14:04:23 12/27/1912/26/2024 urina lysis , dipst ick BILIRUBIN Negati ve Not Available [facility] [address], [place], [address], 12/26/2024 14:04:23 12/27/19 25 12/26/2024 urina lysis , dipst ick UROBILINOGEN 0.2 mg/dL (Norm) Not Available [facility] [address], [place], [address], 12/26/2024 14:04:23 12/27/1912/26/2024 urina lysis , dipst ick KETONES Negati ve Not Available [facility] [address], [place], [address], 12/26/2024 14:04:23 12/27/1912/26/2024 urina lysis , dipst ick PROTEIN 100 mg/dL Not Available [facility] [address], [place], [address], 12/26/2024 14:04:23 12/27/1912/26/2024 urina lysis , dipst ick NITRITES Negati ve Not Available [facility] [address], [place], [address], 12/26/2024 14:04:23 12/27/1912/26/2024 urina lysis , dipst ick GLUCOSE >2000 mg/dL Not Available [facility] [address], [place], [address], 12/26/2024 14:04:23 12/27/1912/26/2024 urina lysis , dipst ick p.H. 5.0 Not Available [facility] [address], [place], [address], 12/26/2024 14:04:23 12/27/1912/26/2024 urina lysis , dipst ick S.G. (Specific [place]) 1.025 Not Available [facility] [address], [place], [address], 12/26/2024 14:04:23 12/27/1912/26/2024 urina lysis , dipst ick LEUKOCYTES Small (25 WBC/uL ) Not Available [facility] [address], [place], [address], 12/26/2024 14:04:23 12/14/19 25 12/12/2024 CT, urogr am No observ ation record ed. OLYA Guallpahuy [facility] [address], [place], [address], 12/18/2024 14:28:50 Result Notes None recorded. Procedures Surgical History Date Name Laterality Status Provider Name and Address Organization Details Recorded Time 5 Fill and Pull/Voiding Trial/TOV completed Meli Rowan [facility] 01/17/2025 13:12:18 5 Cystoscopy- male completed Louis Cook MD [address] [place] [address],[address], [place], [address], [facility] 12/26/2024 19:09:00 5 Keflex post Cysto completed Carlos Enrique falcon [facility] 12/26/2024 13:31:05 5 Urinalysis completed Carlos Enrique falcon [facility] 12/26/2024 13:30:59 5 BINDER SELECTOR/blood draw completed Carlos Enrique falcon [facility] 12/05/2024 12:14:49 5 Bladder Scan completed Louis Cook MD [address] [place] [address],[address], [place], [address], [facility] 12/05/2024 12:32:40 5 Urine Culture completed Meli Rowan [facility] 11/10/2024 11:16:59 5 Urinalysis completed Meli Rowan [facility] 11/10/2024 11:16:57 5 Urine Culture completed Anastasiia Ingram [facility] 09/25/2024 12:27:34 5 Urinalysis completed Anastasiia Ingram [facility] 09/25/2024 11:46:34 5 Bladder Scan completed Anastasiia Ingram [facility] 09/25/2024 11:46:26 5 Blood Draw/BINDER SELECTOR/PSA RESULTS completed Louis Cook MD [address] [place] [address],[address], [place], [address], [facility] 05/30/2024 12:41:37 4 Blood Draw/BINDER SELECTOR/PSA RESULTS completed Carlos Enrique falcon [facility] 10/11/2023 10:18:27 3 Heart Surgery completed Louis Cook MD [address] [place] [address],[facility] [address], [place], [address], [facility] 09/28/2022 16:37:35 procedure on spine completed Louis Cook MD [address] [place] [address],[facility] [address], [address], [facility] 09/28/2022 16:37:23 CYSTOSCOPY (SURG) completed Danay Lara [facility] 01/15/2025 15:17:54 Imaging Results None recorded. [...] Social History Question Answer Notes LastModified by [employer] Details LastModified Time Tobacco Smoking Status Former Smoker Louis Cook MD [address] [place] [address],[address], [place], [address], [facility] 09/28/2022 16:37:00 What Is Your [...] Response Sexually Transmitted Infection N Diabetes Y Bleeding Disorder Y Other Y High Blood Pressure Y Kidney Stones N Cancer Y Lung Disease N Depression N High Cholesterol N Heart Disease Y Immunizations Vaccine Type Date Status Note Provider Nam e and Address Organization Details Recorded Time Influenza, high-dose, quadrivalent, PF 3 completed Louis Cook MD [address] [place] [address],[address], [place], [address], [facility] 04/26/2023 10:59:30 RSV, recombinant, protein subunit RSVpreF, adjuvant reconstituted, 0.5 mL, PF 3 completed Louis Cook MD [address] [place] [address],[address], [place], [address], [facility] 04/26/2023 10:59:31 COVID-19, mRNA, LNP-S, PF, 50 mcg/0.5 mL 3 completed Louis Cook MD [address] [place] [address],[address], [place], [address], [facility] 04/26/2023 10:59:31 COVID-19, mRNA, LNP-S, PF, 50 mcg/0.5 mL 4 completed Not Available [facility] 12/26/2024 13:30:47 COVID-19, mRNA, LNP-S, PF, 50 mcg/0.5 mL 4 completed Not Available [facility] 12/26/2024 13:30:47 Influenza, adjuvanted, trivalent, PF 4 completed Not Available [facility] 12/26/2024 13:30:47 COVID-19, mRNA, LNP-S, PF, 50 mcg/0.5 mL 5 completed Not Available [facility] 12/26/2024 13:30:47 IPV 2 completed Susana watson, [facility] 01/25/2023 09:28:19 Influenza, adjuvanted, trivalent, PF 7 completed Susana watson, [facility] 01/25/2023 09:28:19 Influenza, adjuvanted, trivalent, PF 9 completed Susana watson, [facility] 01/25/2023 09:28:19 Influenza, adjuvanted, trivalent, PF [...] [facility] 01/25/2023 09:28:19 Pneumococcal conjugate PCV20, polysaccharide [id number] conjugate, adjuvant, PF 3 completed Susana Allar null, [facility] 01/25/2023 09:28:19 COVID-19, mRNA, LNP-S, PF, 30 mcg/0.3 mL dose, octavia-sucrose 2 completed Susana Allar null, [facility] 01/25/2023 09:28:19 COVID-19, mRNA, LNP-S, bivalent, PF, 50 mcg/0.5 mL or 25mcg/0.25 mL dose 3 completed Susana Allar null, [facility] 01/25/2023 09:28:19 COVID-19, mRNA, LNP-S, bivalent, PF, 50 mcg/0.5 mL or 25mcg/0.25 mL dose 2 completed Susana Allar null, [facility] 01/25/2023 09:28:19 pneumococcal polysaccharide PPV23 6 completed Susana Allar null, [facility] 01/25/2023 09:28:19 pneumococcal polysaccharide PPV23 6 completed Susana Allar null, [facility] 01/25/2023 09:28:19 Tdap 1 completed Susana Allar null, [facility] 01/25/2023 09:28:19 Tdap 1 completed Susana Allar null, [facility] 01/25/2023 09:28:19 Pneumococcal conjugate PCV 13 5 completed Susana Allar null, [facility] 01/25/2023 09:28:19 yellow fever live 2 completed Susana Allar null, [facility] 01/25/2023 09:28:19 yellow fever live 1 completed Susana Allar null, [facility] 01/25/2023 09:28:19 zoster live 7 completed Susana Allar null, [facility] 01/25/2023 09:28:19 Influenza, high-dose, trivalent, PF 4 completed Susana Allar null, [facility] 01/25/2023 09:28:19 Influenza, high-dose, trivalent, PF 6 completed Susana Allar null, [facility] 01/25/2023 09:28:19 Influenza, high-dose, trivalent, PF 5 completed Susana Allar null, [facility] 01/25/2023 09:28:19 Influenza, split virus, trivalent, preservative 2 completed Susana Allar null, [facility] 01/25/2023 09:28:19 Influenza, split virus, trivalent, preservative 1 completed Susana Allar null, [facility] 01/25/2023 09:28:19 Influenza, split virus, trivalent, preservative 6 completed Susana Allar null, [facility] 01/25/2023 09:28:19 Influenza, split virus, trivalent, preservative 4 completed Susana Allar null, [facility] 01/25/2023 09:28:19 Influenza, split virus, trivalent, preservative 3 completed Susana Allar null, [facility] 01/25/2023 09:28:19 Influenza, split virus, trivalent, preservative 0 completed Susana Allar null, [facility] 01/25/2023 09:28:19 Influenza, split virus, trivalent, preservative 7 completed Susana Allar null, [facility] 01/25/2023 09:28:19 Influenza, split virus, trivalent, preservative 5 completed Susana Allar null, [facility] 01/25/2023 09:28:19 Td (adult), 5 Lf tetanus toxoid, preservative free, adsorbed 5 completed Susana Allar null, [facility] 01/25/2023 09:28:19 typhoid, ViCPs 2 completed Susana Allar null, [facility] 01/25/2023 09:28:19 typhoid, ViCPs 1 completed Susana Allar null, [facility] 01/25/2023 09:28:19 Hep A-Hep B 2 completed Susana Allar null, [facility] 01/25/2023 09:28:19 Hep A-Hep B 2 completed Susana Allar null, [facility] 01/25/2023 09:28:19 Hep A-Hep B 2 completed NATALIE Cary - [facility] 01/25/2023 09:28:19 Past Encounters Encounter ID Performer Location Encounter Start Date Encounter Closed Date Diagnosis/Indication Diagnosis SNOMED-CT Code Diagnosis ICD10 Code Diagnosis IMO Codes Diagnosis Note [id number] Louis Cook MD [facility] [address] [place] [id number] 12/05/2024 12:10:36 12/07/2024 11:21:36 Malignant neoplasm of prostate [id number] C61 1. Prostate cancer- cT1c - Luisa 3+3 = 6 - on expectant management - PSA (13.7) - increased - has fluctuated over the years- Follow-up in 3 months with PSA(if PSA increases significan t - check Prostate MRI and recommend TRUS bx Increased frequency of urination [id number] R35.0 2. Urinary frequency- he is off Lasix- incomplete emptying (188 mL)- stop Gemtesa 75 mg daily Lower urin robbin tract symptoms due to benign prostatic hypertrophy [id number] 9101 N40.1 4. BPH- high PVR = 188 mL- continue Flomax 0.4 mg daily- add Cialis 5 mg daily- check Bladder scan at Follow-up Microscopic hematuria 19 [id number] R31.29 [id number] 3. Microscopi c hematuria- check CT Urogram- will need Cystoscopy in near future [id number] Louis Cook MD [facility] [address] [place] [id number] 12/26/2024 13:28:42 12/28/2024 12:14:11 Malignant neoplasm of prostate [id number] C61 2. Prostate cancer- cT1c - Luisa 3+3 = 6 - on expectant management - PSA (13.7) - increased - has fluctuated over the years- Follow-up in 3 months with PSA(if PSA increases significan t - check Prostate MRI and recommend TRUS bx Increased frequency of urination [id number] R35.0 H/O Urinary frequency- he is off Lasix- incomplete emptying (188 mL)- stopped Gemtesa 75 mg daily Microscopic hematuria 19 1740857 R31.29 [id number] 1. Microscopi c hematuria- CT Urogram (12/12/24) [...] tract symptoms due to benign prostatic hypertrophy [id number] 9101 N40.1 3. BPH- last PVR = 188 mL- continue Flomax 0.4 mg daily- continue Cialis 5 mg daily- check Bladder scan at Follow-up Multiple n odules of lung [id number] R91.8 [id number] 4. Pulmonary nodules- CT Urogram (12/12/24) - [...] Name 12/26/2024 1 [place] ([place]) [id number] Enrike Coleman [id number] Enrike Coleman Notes Date Note Type Note Provider Name and Address Organization Details Recorded Time 12/26/2024 text/html 84 yo male with history of A.fib (on Eliquis), HTN, DM, memory loss, PMR, BPH, and Prostate cancer - T1c - Atalissa 3+3 = 6 - involving 1/10 cores (< 5%) on Left - TRUS bx (12/15/12) by Dr. Herrera - on expectant management. Prostate MRI (2014) revealed a PI-RADS 2 lesion - underwent MRI bx (10/31/14) of lesion at [facility] - benign. No family H/O prostate [...] Right medial lower lobe Louis Cook MD [address] [facility] [facility],[address], [place], [address], [facility] 12/26/2024 19:09:44
--- OUTSIDE RECORDS SUMMARY | 2025-01-29 14:53 | XMS_ITS | Data Portability ---
Author Organization [facility], [facility] Address [address] [place] [address] Care Team Providers Care Cottage Master Name Role Phone LINDSAY SANFORD Referring Provider [...] mmadrigalvale ro [facility], [address], [place], [address], 12/26/2024 14:05:06 cultur e, urine 2024 025 [facility], [address], [place], [address], 12/30/2024 11:19:27 PSA, serum or plasma 2024 025 mmadrigalvale ro [facility], [address], [place], [address], 12/05/2024 12:15:11 PSA, total, serum or plasma 2024 025 [email or web address] [facility], [address] [facility], [place], [address], 12/05/2024 13:23:25 urinal ysis, dipsti ck 2024 025 seng [facility], [address], [place], [address], 11/10/2024 11:19:26 cultur e, urine 2024 025 [facility], [address], [address], [place], [address], 11/11/2024 10:45:08 cultur e, urine 2024 025 [facility], [address], [address], [place], [address], 09/28/2024 11:28:22 Referral None record ed. Procedures None record ed. Surgeries cystos copy (SURG) 2024 [email or web address] Not available 12/28/2024 11:47:[address], urogra m - PLEASE CALL PT TO SCHEDU MADALYN 2024 [facility], [address] [facility], [place], [address], 12/13/2024 11:02:23 Medication Orders tadala maureen 5 mg tablet [address], [address], 12/05/2024 14:50:32 Patient TargetsNo targets recorded. Patient [...] revie w. Not Available [facility] [address], [place], [address], 09/28/2024 11:28:22 11/11/1911/10/2024 URINE CULTU RE final [...] revie w. Not Available [facility] [address], [place], [address], 11/11/2024 10:45:08 11/11/1911/10/2024 urina lysis , dipst ick BLOOD Large (250 RBC/uL ) Not Available [facility] [address], [place], [address], 11/10/2024 11:17:20 11/11/1911/10/2024 urina lysis , dipst ick NITRITES Negati ve Not Available [facility] [address], [place], [address], 11/10/2024 11:17:20 11/11/19 25 11/10/2024 urina lysis , dipst ick LEUKOCYTES Small (25 WBC/uL ) Not Available [facility] [address], [place], [address], 11/10/2024 11:17:20 12/06/19 25 12/05/2024 PSA, serum or plasm a PSA 13.7ng /mL 0-4.0 NG/mL Not Available [facility] [address], [place], [address], 11/22/2024 15:45:12 12/27/1912/26/2024 URINE CULTU RE final [...] [facility] [address], [place], [address], 12/30/2024 11:19:27 12/27/1912/26/2024 urina lysis , dipst ick BLOOD Large (250 RBC/uL ) Not Available [facility] [address], [place], [address], 12/26/2024 14:04:23 12/27/19 25 12/26/2024 urina lysis , dipst ick BILIRUBIN Negati ve Not Available [facility] [address], [place], [address], 12/26/2024 14:04:23 12/27/19 25 12/26/2024 urina lysis , dipst ick UROBILINOGEN 0.2 mg/dL (Norm) Not Available [facility] [address], [place], [address], 12/26/2024 14:04:23 12/27/19 25 12/26/2024 urina lysis , dipst ick KETONES Negati ve Not Available [facility] [address], [place], [address], 12/26/2024 14:04:23 12/27/19 25 12/26/2024 urina lysis , dipst ick PROTEIN 100 mg/dL Not Available [facility] [address], [place], [address], 12/26/2024 14:04:23 12/27/19 25 12/26/2024 urina lysis , dipst ick NITRITES Negati ve Not Available [facility] [address], [place], [address], 12/26/2024 14:04:23 12/27/19 25 12/26/2024 urina lysis , dipst ick GLUCOSE >2000 mg/dL Not Available [facility] [address], [place], [address], 12/26/2024 14:04:23 12/27/19 25 12/26/2024 urina lysis , dipst ick p.H. 5.0 Not Available [facility] [address], [place], [address], 12/26/2024 14:04:23 12/27/19 25 12/26/2024 urina lysis , dipst ick S.G. (Specific Badger) 1.025 Not Available [facility] [address], [place], [address], 12/26/2024 14:04:23 12/27/1912/26/2024 urina lysis , dipst ick LEUKOCYTES Small (25 WBC/uL ) Not Available [facility] [address], [place], [address], 12/26/2024 14:04:23 12/14/1912/12/2024 CT, urogr am No observ ation record ed. [facility], [place] [address] [facility], [place], [address], 12/18/2024 14:28:50 Result Notes None recorded. Procedures Surgical History Date Name Laterality Status Provider Name and Address Organization Details Recorded Time 5 Fill and Pull/Voiding Trial/TOV completed Meli Rowan [facility] 01/17/2025 13:12:18 5 Cystoscopy- male completed Louis Cook MD [address] [facility],[address], [place], [address], [facility] 12/26/2024 19:09:00 5 Keflex post Cysto completed Carlos Enrique falcon [facility] 12/26/2024 13:31:05 5 Urinalysis completed Carlos Enrique falcon [facility] 12/26/2024 13:30:59 5 LEAD LEVEL DESIGNER/blood draw completed Carlos Enrique falcon [facility] 12/05/2024 12:14:49 5 Bladder Scan completed Louis Cook MD [address] [place] [address],[address], [place], [address], [facility] 12/05/2024 12:32:40 5 Urine Culture completed Meli Rowan [facility] 11/10/2024 11:16:59 5 Urinalysis completed Meli Rowan [facility] 11/10/2024 11:16:57 5 Urine Culture completed Anastasiia Ingram [facility] 09/25/2024 12:27:34 5 Urinalysis completed Anastasiia Ingram [facility] 09/25/2024 11:46:34 5 Bladder Scan completed Anastasiia Ingram [facility] 09/25/2024 11:46:26 5 Blood Draw/LEAD LEVEL DESIGNER/PSA RESULTS completed Louis Cook MD [address] [place] [address],[address], [place], [address], [facility] 05/30/2024 12:41:37 4 Blood Draw/LEAD LEVEL DESIGNER/PSA RESULTS completed Carlos Enrique falcon [facility] 10/11/2023 10:18:27 3 Heart Surgery completed Louis Cook MD [address] [place] [address],[address], [place], [address], [facility] 09/28/2022 16:37:35 procedure on spine completed Louis Cook MD [address] [place] [address],[address], [place], [address], [facility] 09/28/20[facility] 16:37:23 CYSTOSCOPY (SURG) completed Danay Lara [facility] 01/15/2025 15:17:54 Imaging Results None recorded. [...] Updated DateTime 09/25/2024 175.26 cm 31 kg/m2 61073.4 g Anastasiia Ingram [facility] 09/25/2024 11:45:48 Date Recorded Body height Body mass index (BMI) Body weight Provider Name and Address Organization Details Last Updated DateTime 12/05/2024 175.26 cm 31 kg/m2 92878.4 g Louis Cook MD [address] [place] [address], [address], [facility] 12/05/2024 12:32:21 Social History Question Answer Notes LastModified by Organizat ion Details LastModified Time Tobacco Smoking Status Former Smoker Louis Cook MD [address] [place] [address],[address], [address], [facility] 09/28/2022 16:37:00 What Is [...] quadrivalent, PF 3 completed Louis Cook MD [address] [place] [address],[address], [address], [facility] 04/26/2023 10:59:30 RSV, recombinant, protein subunit RSVpreF, adjuvant reconstituted, 0.5 mL, PF 3 completed Louis Cook MD [address] [place] [address],[address], [address], [facility] 04/26/2023 10:59:31 COVID-19, mRNA, LNP-S, PF, 50 mcg/0.5 mL 3 completed Louis Cook MD [address] [place] [address],[address], [address], [facility] 04/26/2023 10:59:31 COVID-19, mRNA, LNP-S, PF, 50 mcg/0.5 mL 4 completed Not Available [facility] 12/26/2024 13:30:47 COVID-19, mRNA, LNP-S, PF, 50 mcg/0.5 mL 4 completed Not Available [facility] 12/26/2024 13:30:47 Influenza, adjuvanted, trivalent, PF 4 completed Not Available [facility] 12/26/2024 13:30:47 COVID-19, mRNA, LNP-S, PF, 50 mcg/0.5 mL 5 completed Not Available [facility] 12/26/2024 13:30:47 IPV 2 completed Susana Allar null, [facility] 01/25/2023 09:28:19 Influenza, adjuvanted, trivalent, PF 7 completed Susana Allar null, [facility] 01/25/2023 09:28:19 Influenza, adjuvanted, trivalent, PF 9 completed Susana Allar null, [facility] 01/25/2023 09:28:19 Influenza, adjuvanted, trivalent, PF 8 completed Susana Allar null, [facility] 01/25/2023 09:28:19 zoster recombinant 0 completed Susana Allar null, [facility] 01/25/2023 09:28:19 zoster recombinant 9 completed Susana Allar null, [facility] 01/25/2023 09:28:19 Influenza, adjuvanted, quadrivalent, PF 0 completed Susana Allar null, [facility] 01/25/2023 09:28:19 Influenza, adjuvanted, quadrivalent, PF 2 completed Susana Allar null, [facility] 01/25/2023 09:28:19 Influenza, adjuvanted, quadrivalent, PF 1 completed Susana Allar null, [facility] 01/25/2023 09:28:19 COVID-19, mRNA, LNP-S, PF, 100 mcg/0.5mL dose or 50 mcg/0.25mL dose 1 completed Susana Allar null, [facility] 01/25/2023 09:28:19 COVID-19, mRNA, LNP-S, PF, 100 mcg/0.5mL dose or 50 mcg/0.25mL dose 1 completed Susana Allar null, [facility] 01/25/2023 09:28:19 COVID-19, mRNA, LNP-S, PF, 100 mcg/0.5mL dose or 50 mcg/0.25mL dose 1 completed Susana Allar null, [facility] 01/25/2023 09:28:19 Pneumococcal conjugate PCV20, polysaccharide [id number] conjugate, adjuvant, PF 3 completed Susana Allar null, [facility] 01/25/2023 09:28:19 COVID-19, mRNA, LNP-S, PF, 30 mcg/0.3 mL dose, octavia-sucrose 2 completed Susana Allar null, [facility] 01/25/2023 09:28:19 COVID-19, mRNA, LNP-S, bivalent, PF, 50 mcg/0.5 mL or 25mcg/0.25 mL dose 3 completed Susana Allar null, [facility] 01/25/2023 09:28:19 COVID-19, mRNA, LNP-S, bivalent, PF, 50 mcg/0.5 mL or 25mcg/0.25 mL dose 2 completed Susana Allar null, [facility] 01/25/2023 09:28:19 pneumococcal polysaccharide PPV23 6 completed [facility], [facility] 01/25/2023 09:28:19 pneumococcal polysaccharide PPV23 6 completed Susana Allar null, [facility] 01/25/2023 09:28:19 Tdap 1 completed Susana Allar null, [facility] 01/25/2023 09:28:19 Tdap 1 completed Susana Allar null, [facility] 01/25/2023 09:28:19 Pneumococcal conjugate PCV 13 5 completed Susana Allar null, [facility] 01/25/2023 09:28:19 yellow fever live 2 completed Susana Allar null, [facility] 01/25/2023 09:28:19 yellow fever live 1 completed Susana Allar null, [facility] 01/25/2023 09:28:19 zoster live 7 completed Susana Allar null, [facility] 01/25/2023 09:28:19 Influenza, high-dose, trivalent, PF 4 completed Susana Allar null, [facility] 01/25/2023 09:28:19 Influenza, high-dose, trivalent, PF 6 completed Susana Allar null, [facility] 01/25/2023 09:28:19 Influenza, high-dose, trivalent, PF 5 completed Susana Allar null, [facility] 01/25/2023 09:28:19 Influenza, split virus, trivalent, preservative 2 completed Susana Allar null, [facility] 01/25/2023 09:28:19 Influenza, split virus, trivalent, preservative 1 completed Susana Allar null, [facility] 01/25/2023 09:28:19 Influenza, split virus, trivalent, preservative 6 completed Susana Allar null, [facility] 01/25/2023 09:28:19 Influenza, split virus, trivalent, preservative 4 completed Susana Allar null, [facility] 01/25/2023 09:28:19 Influenza, split virus, trivalent, preservative 3 completed Susana Allar null, [facility] 01/25/2023 09:28:19 Influenza, split virus, trivalent, preservative 0 completed Susana Allar null, [facility] 01/25/2023 09:28:19 Influenza, split virus, trivalent, preservative 7 completed Susana Allar null, [facility] 01/25/2023 09:28:19 Influenza, split virus, trivalent, preservative 5 completed Susana Allar null, [facility] 01/25/2023 09:28:19 Td (adult), 5 Lf tetanus toxoid, preservative free, adsorbed 5 completed Susana Allar null, [facility] 01/25/2023 09:28:19 typhoid, ViCPs 2 completed Susana Allar null, [facility] 01/25/2023 09:28:19 typhoid, ViCPs 1 completed Susana Allar null, [facility] 01/25/2023 09:28:19 Hep A-Hep B 2 completed Susana Allar null, [facility] 01/25/2023 09:28:19 Hep A-Hep B 2 completed Susana Allar null, [facility] 01/25/2023 09:28:19 Hep A-[facility] B 2 [facility]:28[facility]19 Past Encounters Encounter ID Performer Location Encounter Start Date Encounter Closed Date Diagnosis/Indication Diagnosis SNOMED-CT Code Diagnosis ICD10 Code Diagnosis IMO Codes Diagnosis Note [id number] Louis Cook MD [facility] [address] [place] [address] 09/28/2022 16:22:42 10/02/2022 13:32:27 Malignant neoplasm of prostate [id number] C61 1. Prostate cancer- cT1c - [facility] 3+3 = 6 - on expectant management - PSA increased (11.80) - has fluctuated over the years- recheck PSA in November ([facility])- if PSA increases - check Prostate MRI and recommend TRUS bx Lower urin robbin tract symptoms due to benign prostatic hypertrophy 2389931687 9101 N40.1 2. BPH- voiding okay- continue Flomax 0.4 mg daily [id number] Louis Cook MD [address] [place] [address] 04/26/2023 10:54:45 04/26/2023 12:03:27 Malignant neoplasm of prostate [id number] C61 1. Prostate cancer- cT1c - [facility] 3+3 = 6 - on expectant management - PSA (9.08) - decreased has fluctuated over the years- recheck PSA in September ([facility])(if PSA increases significan t - check Prostate MRI and recommend TRUS bx Lower urin robbin tract symptoms due to benign prostatic hypertrophy 2083193862 9101 N40.1 2. BPH- voiding okay- continue Flomax 0.4 mg daily [id number] Louis Cook MD [facility] [address] [place] [address] 10/11/2023 09:43:36 10/12/2023 08:25:39 Malignant neoplasm of prostate [id number] C61 1. Prostate cancer- cT1c - [facility] 3+3 = 6 - on expectant management - PSA (10.5) - decreased has fluctuated over the years- Follow-up in 6 months with PSA(if PSA increases significan t - check Prostate MRI and recommend TRUS bx Lower urin robbin tract symptoms due to benign prostatic hypertrophy 0447937392 9101 N40.1 2. BPH- voiding okay- continue Flomax 0.4 mg daily [id number] Louis Cook MD [address] [place] [address] 05/30/2024 12:07:44 06/02/2024 12:10:13 Malignant neoplasm of prostate [id number] C61 1. Prostate cancer- cT1c - [facility] 3+3 = 6 - on expectant management - PSA (103) - decreased has fluctuated over the years- Follow-up in 6 months with PSA(if PSA increases significan t - check Prostate MRI and recommend TRUS bx Lower urin robbin tract symptoms due to benign prostatic hypertrophy [id number] 9101 N40.1 H/O BPH- voiding okay- continue Flomax 0.4 mg daily- check Bladder scan at Follow-up Increased frequency of urination 545417568 R35.0 2. Urinary frequency- his symptoms correlate with his use of Lasix [id number] [facility] [address] [place] [address] 09/25/2024 11:07:09 10/02/2024 12:08:22 Malignant neoplasm of prostate 216040734 C61 1. Prostate cancer- cT1c - [facility] 3+3 = 6 - on expectant management - PSA (103) - decreased has fluctuated over the years- Follow-up as scheduled in November with PSA per Dr Cook(if PSA increases significan t - check Prostate MRI and recommend TRUS bx Increased frequency of urination 106784094 R35.0 2. Urinary frequency and urgency- improved since stopping Lasix and tapering steroid Lower urin robbin tract symptoms due to benign prostatic hypertrophy 6082762349 9101 N40.1 H/O BPH- voiding okay- continue Flomax 0.4 mg daily- PVR 162 ml today Urgent maribel ameya to urinate 48652224 R39.15 [id number] Most bothered by urgency / urge incontinen ceAfter must discussion , will trial PRN Gemtesa for days he goes out -- use sparinglyD iscussed expectatio ns, risk of UTIs and difficulty urinating -- low threshhold to discontinu e Gemtesa if not tolerating .Check PVR at next visit -- he will take Gemtesa that morning Will check urine culture today to r/o UTI [id number] [facility] [address] [place] [address] 11/10/2024 10:42:48 11/17/2024 15:53:02 Urinary symptoms 604933270 R39.9 [id number] MD LUIS ANGEL [facility] [address] [place] [address] 12/05/2024 12:10:36 12/07/2024 11:21:36 Malignant neoplasm of prostate 652672691 C61 1. Prostate cancer- cT1c - [facility] 3+3 = 6 - on expectant management - PSA (13.7) - increased - has fluctuated over the years- Follow-up in 3 months with PSA(if PSA increases significan t - check Prostate MRI and recommend TRUS bx Increased frequency of urination 651554501 R35.0 2. Urinary frequency- he is off Lasix- incomplete emptying (188 mL)- stop Gemtesa 75 mg daily Lower urin robbin tract symptoms due to benign prostatic hypertrophy 1022208664 9101 N40.1 4. BPH- high PVR = 188 mL- continue Flomax 0.4 mg daily- add Cialis 5 mg daily- check Bladder scan at Follow-up Microscopic hematuria 19 8471124 R31.29 [id number] 3. Microscopi c hematuria- check CT Urogram- will need Cystoscopy in near future [id number] Louis Cook MD [facility] [address] [place] [address] 12/26/2024 13:28:42 12/28/2024 12:14:11 Malignant neoplasm of prostate 730377016 C61 2. Prostate cancer- cT1c - [facility] 3+3 = 6 - on expectant management - PSA (13.7) - increased - has fluctuated over the years- Follow-up in 3 months with PSA(if PSA increases significan t - check Prostate MRI and recommend TRUS bx Increased frequency of urination 427099083 R35.0 H/O Urinary frequency- he is off Lasix- incomplete emptying (188 mL)- stopped Gemtesa 75 mg daily Microscopic hematuria 19 1880921 R31.29 [id number] 1. Microscopi c hematuria- CT Urogram (12/12/24) [...] tract symptoms due to benign prostatic hypertrophy 0814804782 9101 N40.1 3. BPH- last PVR = 188 mL- continue Flomax 0.4 mg daily- continue Cialis 5 mg daily- check Bladder scan at Follow-up Multiple n odules of lung 285256096 R91.8 [id number] 4. Pulmonary nodules- CT Urogram (12/12/24) - no renal masses, hydronephr osis or filling defects - 3 (1mm) stones in Right kidney - + diffuse bladder wall thickening and large prostate.- Lung - small nodules - new 7 mm nodule Right medial lower lobe- (repeat Chest CT scan recommende d in 3-6 months) [id number] Louis Cook MD [facility] [address] [place] [address] 01/17/2025 12:09:37 01/18/2025 10:40:44 Malignant neoplasm of prostate 344878320 C61 Health Concerns Section Related Observation LastModified by Organization Detai ls LastModified Time None Recorded Concern Status LastModified by Organization Details LastModified Time None Recorded Advance Directives Directive None Recorded Payers Insurance Date Sequence Insurance Name Policy Number Policy Sam Covered Member ID Sam Member ID Guarantor Name 01/18/2025 1 [place] [id number] Enrike Coleman [id number] Enrike Coleman 01/17/2025 1 [place] [employer] Enrike Coleman [id number] Enrike Coleman 01/17/2025 1 [place] [id number] Enrike Coleman [id number] Enrike Coleman Notes Date Note Type Note [...] underwent MRI bx (10/31/14) of lesion at [facility] - benign. No family H/O prostate [...] 9.08 (04/16/23)- 10.3 (05/30/24) ANTOINE RAMOS PA-C [address] [place] [address],[address], [place], [address], [facility] 09/25/2024 13:01:31 11/10/2024 text/html David is here for UA/UC and PVR- see triage note for Sx detailsNurse visit completed by Meli Sanchez RN. Meli watson [place] - [facility] 11/10/2024 11:19:56 12/05/2024 text/html 84 yo male with history of A.fib (on Eliquis), HTN, DM, memory loss, PMR, BPH, and Prostate cancer - T1c - [facility] 3+3 = 6 - involving 1/10 cores (< 5%) on Left - TRUS bx (12/15/12) by Dr. Herrera - on expectant management. Prostate MRI (2014) revealed a PI-RADS 2 lesion - underwent MRI bx (10/31/14) of lesion at [facility] - benign. No family H/O prostate [...] 11.80 (09/15/22)- 9.08 (04/16/23) Louis Cook MD [address] [place] [address],[address], [place], [address], [facility] 12/05/2024 13:50:09 12/26/2024 text/html 84 yo [...] underwent MRI bx (10/31/14) of lesion at [facility] - benign. No family H/O prostate [...] medial lower lobe Louis Cook MD [address] [facility],[address], [place], [address], [facility] 12/26/2024 19:09:44 01/17/2025 text/html Pt presents to clinic for TOV. Urine is clear.one old small clot noted after urination.Per Dr Cook, pt to continue to hold Eliquis for 24 hours and see how urine is looking with cath out, if clear then resume. Pt and stated understanding.Nurse visit completed by Meli Sanchez RN. Meli watson [facility] 01/17/2025 13:13:36
--- OUTSIDE RECORDS SUMMARY | 2025-01-29 14:53 | XMS_ITS | Continuity of Care Document ---
Author Organization [facility], [facility] Address [address] 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, [place], [address], 12/05/2024 12:15:11 PSA, total, serum or plasma [email or web address] [place] [address] Lab, [address] , [place], [address], 12/05/2024 13:23:25 Referral None record ed. Procedures None record ed. Surgeries None record ed. Imaging CT, urogra m - PLEASE CALL PT TO CLARIBEL BERGMAN 2024 025 [facility], [address] , [place], [address], 12/13/2024 11:02:23 Medication Orders tadala maureen 5 mg tablet 2024 025 [facility], [address] [place], [address], 12/05/2024 14:50:32 Patient TargetsNo targets recorded. Patient [...] provi gricelda revie w. Not Available [facility] [address], [place], [address], 11/11/2024 10:45:08 11/11/1911/10/2024 urina lysis , dipst ick BLOOD Large (250 RBC/uL ) Not Available [facility] [address], [place], [address], 11/10/2024 11:17:20 11/11/1911/10/2024 urina lysis , dipst ick NITRITES Negati ve Not Available [facility] [address], [place], [address], 11/10/2024 11:17:20 11/11/1911/10/2024 urina lysis , dipst ick LEUKOCYTES Small (25 WBC/uL ) Not Available [facility] [address], [place], [address], 11/10/2024 11:17:20 12/06/1912/05/2024 PSA, serum or plasm a PSA 13.7ng /mL 0-4.0 NG/mL Not Available [facility] [address], [place], [address], 11/22/2024 15:45:12 12/14/19 25 12/12/2024 CT, urogr am No observ ation record ed. OLYA Louis [facility] [address], [place], [address], 12/18/2024 14:28:50 Result Notes None recorded. Procedures Surgical History Date Name Laterality Status Provider Name and Address Organization Details Recorded Time 5 Fill and Pull/Voiding Trial/TOV completed Meli Rowan [facility] 01/17/2025 13:12:18 5 Cystoscopy- male completed Louis Cook MD [address] [place] [address],[address], [place], [address], [facility] 12/26/2024 19:09:00 5 Keflex post Cysto completed Carlos Enrique falcon [facility] 12/26/2024 13:31:05 5 Urinalysis completed Carlos Enrique falcon [facility] 12/26/2024 13:30:59 5 SALES INTERN/blood draw completed Carlos Enrique falcon [facility] 12/05/2024 12:14:49 5 Bladder Scan completed Louis Cook MD [address] [place] [address],[address], [place], [address], [facility] 12/05/2024 12:32:40 5 Urine Culture completed Meli Rowan [facility] 11/10/2024 11:16:59 5 Urinalysis completed Meli Rowan [facility] 11/10/2024 11:16:57 5 Urine Culture completed Anastasiia Ingram [facility] 09/25/2024 12:27:34 5 Urinalysis completed Anastasiia Ingram [facility] 09/25/2024 11:46:34 5 Bladder Scan completed Anastasiia Ingram [facility] 09/25/2024 11:46:26 5 Blood Draw/SALES INTERN/PSA RESULTS completed Louis Cook MD [address] [place] [address],[address], [address], [facility] 05/30/2024 12:41:37 4 Blood Draw/SALES INTERN/PSA RESULTS completed Carlos Enrique falcon [facility] 10/11/2023 10:18:27 3 Heart Surgery completed Louis Cook MD [address] [place] [address],[address], [place], [address], [facility] 09/28/2022 16:37:35 procedure on spine completed Louis Cook MD [address] [place] [address],[facility] [address], [place], [address], [facility] 09/28/2022 16:37:23 CYSTOSCOPY (SURG) completed Danay Lara [facility] 01/15/2025 15:17:54 Imaging Results None recorded. Procedure [...] Updated DateTime 12/05/2024 175.26 cm 31 kg/m2 84680.4 g Louis Cook MD [address] [place] [address],[facility] [address] [address] 12/05/2024 12:32:21 Social History Question Answer Notes LastModified by [employer] Details LastModified Time Tobacco Smoking Status Former Smoker Louis Cook MD [address] [place] [address],[address], [address] 09/28/2022 16:37:00 What Is Your [...] Functional Status Question Answer Note LastModified by [employer] Details LastModified Time How many times per [...] quadrivalent, PF 3 completed Louis Cook MD [address] [place] [address],[address], [address] [place] [address] Urology 04/26/2023 10:59:30 RSV, recombinant, protein subunit RSVpreF, adjuvant reconstituted, 0.5 mL, PF 3 completed Louis Cook MD [address] [place] [address],[address], [address], [facility] 04/26/2023 10:59:31 COVID-19, mRNA, LNP-S, PF, 50 mcg/0.5 mL 3 completed Louis Cook MD [address] [place] [address],[address], [address], [facility] 04/26/2023 10:59:31 COVID-19, mRNA, LNP-S, PF, 50 mcg/0.5 mL 4 completed Not Available [facility] 12/26/2024 13:30:47 COVID-19, mRNA, LNP-S, PF, 50 mcg/0.5 mL 4 completed Not Available [facility] 12/26/2024 13:30:47 Influenza, adjuvanted, trivalent, PF 4 completed Not Available [facility] 12/26/2024 13:30:47 COVID-19, mRNA, LNP-S, PF, 50 mcg/0.5 mL 5 completed Not Available [facility] 12/26/2024 13:30:47 IPV 08/27/200 2 completed Susana Allar null, [facility] 01/25/2023 09:28:19 Influenza, adjuvanted, trivalent, PF 7 completed Susana Allar null, [facility] 01/25/2023 09:28:19 Influenza, adjuvanted, trivalent, PF 9 completed Susana Allar null, [facility] 01/25/2023 09:28:19 Influenza, adjuvanted, trivalent, PF 8 completed Susana Allar null, [facility] 01/25/2023 09:28:19 zoster recombinant 0 completed Susana Allar null, [facility] 01/25/2023 09:28:19 zoster recombinant 9 completed Susana Allar null, [facility] 01/25/2023 09:28:19 Influenza, adjuvanted, quadrivalent, PF 0 completed Susana Allar null, [facility] 01/25/2023 09:28:19 Influenza, adjuvanted, quadrivalent, PF 2 completed Susana Allar null, [facility] 01/25/2023 09:28:19 Influenza, adjuvanted, quadrivalent, PF 1 completed Susana Allar null, [facility] 01/25/2023 09:28:19 COVID-19, mRNA, LNP-S, PF, 100 mcg/0.5mL dose or 50 mcg/0.25mL dose 1 completed Susana Allar null, [facility] 01/25/2023 09:28:19 COVID-19, mRNA, LNP-S, PF, 100 mcg/0.5mL dose or 50 mcg/0.25mL dose 1 completed Susana Allar null, [facility] 01/25/2023 09:28:19 COVID-19, mRNA, LNP-S, PF, 100 mcg/0.5mL dose or 50 mcg/0.25mL dose 1 completed Susana Allar null, [facility] 01/25/2023 09:28:19 Pneumococcal conjugate PCV20, polysaccharide [id number] conjugate, adjuvant, PF 3 completed Susana Allar null, [facility] 01/25/2023 09:28:19 COVID-19, mRNA, LNP-S, PF, 30 mcg/0.3 mL dose, octavia-sucrose 2 completed Susana Allar null, [facility] 01/25/2023 09:28:19 COVID-19, mRNA, LNP-S, bivalent, PF, 50 mcg/0.5 mL or 25mcg/0.25 mL dose 3 completed Susana Allar null, [facility] 01/25/2023 09:28:19 COVID-19, mRNA, LNP-S, bivalent, PF, 50 mcg/0.5 mL or 25mcg/0.25 mL dose 2 completed Susana Allar null, [facility] 01/25/2023 09:28:19 pneumococcal polysaccharide PPV23 6 completed Susana Allar null, [facility] 01/25/2023 09:28:19 pneumococcal polysaccharide PPV23 6 completed Susana Allar null, [facility] 01/25/2023 09:28:19 Tdap 1 completed Susana Allar null, [facility] 01/25/2023 09:28:19 Tdap 1 completed Susana Allar null, [facility] 01/25/2023 09:28:19 Pneumococcal conjugate PCV 13 5 completed Susana Allar null, [facility] 01/25/2023 09:28:19 yellow fever live 2 completed Susana Allar null, [facility] 01/25/2023 09:28:19 yellow fever live 1 completed Susana Allar null, [facility] 01/25/2023 09:28:19 zoster live 7 completed Susana Allar null, [facility] 01/25/2023 09:28:19 Influenza, high-dose, trivalent, PF 4 completed Susana Allar null, [facility] 01/25/2023 09:28:19 Influenza, high-dose, trivalent, PF 6 completed Susana Allar null, [facility] 01/25/2023 09:28:19 Influenza, high-dose, trivalent, PF 5 completed Susana Allar null, [facility] 01/25/2023 09:28:19 Influenza, split virus, trivalent, preservative 2 completed Susana Allar null, [facility] 01/25/2023 09:28:19 Influenza, split virus, trivalent, preservative 1 completed Susana Allar null, [facility] 01/25/2023 09:28:19 Influenza, split virus, trivalent, preservative 6 completed Susana Allar null, [facility] 01/25/2023 09:28:19 Influenza, split virus, trivalent, preservative 4 completed Susana Allar null, [facility] 01/25/2023 09:28:19 Influenza, split virus, trivalent, preservative 3 completed Susana Allar null, [facility] 01/25/2023 09:28:19 Influenza, split virus, trivalent, preservative 0 completed Susana Allar null, [facility] 01/25/2023 09:28:19 Influenza, split virus, trivalent, preservative 7 completed Susana Allar null, [facility] 01/25/2023 09:28:19 Influenza, split virus, trivalent, preservative 5 completed Susana Allar null, [facility] 01/25/2023 09:28:19 Td (adult), 5 Lf tetanus toxoid, preservative free, adsorbed 5 completed Susana Allar null, [facility] 01/25/2023 09:28:19 typhoid, ViCPs 2 completed Susana Allar null, [facility] 01/25/2023 09:28:19 typhoid, ViCPs 1 completed Susana Guallpalulu null, [facility] 01/25/2023 09:28:19 Hep A-Hep B 2 completed Susana Guallpalulu null, [facility] 01/25/2023 09:28:19 Hep A-Hep B 2 completed Susana Leblanc null, [facility] 01/25/2023 09:28:19 Hep A-Hep B 2 completed Susana Guallpalulu null, [facility] 01/25/2023 09:28:19 Past Encounters Encounter ID Performer Location Encounter Start Date Encounter Closed Date Diagnosis/Indication Diagnosis SNOMED-CT Code Diagnosis ICD10 Code Diagnosis IMO Codes Diagnosis Note [id number] ANTOINE RAMOS PA-C [facility] [address] [place] [address] 11/10/2024 10:42:48 11/17/2024 15:53:02 Urinary symptoms 580455768 R39.9 [id number] Louis Cook MD [facility] [address] [place] [address] 12/05/2024 12:10:36 12/07/2024 11:21:36 Malignant neoplasm of prostate [id number] C61 1. Prostate cancer- cT1c - Luisa 3+3 = 6 - on expectant management - PSA (13.7) - increased - has fluctuated over the years- Follow-up in 3 months with PSA(if PSA increases significan t - check Prostate MRI and recommend TRUS bx Increased frequency of urination 942811946 R35.0 2. Urinary frequency- he is off Lasix- incomplete emptying (188 mL)- stop Gemtesa 75 mg daily Lower urin robbin tract symptoms due to benign prostatic hypertrophy 6693345404 9101 N40.1 4. BPH- high PVR = 188 mL- continue Flomax 0.4 mg daily- add Cialis 5 mg daily- check Bladder scan at Follow-up Microscopic hematuria 19 6221580 R31.29 [id number] 3. Microscopi c hematuria- check CT Urogram- will need Cystoscopy in near future Health Concerns Section Related Observation LastModified by Organization Detai ls LastModified Time None Recorded Concern Status LastModified by Organization Details LastModified Time None Recorded Payers Encounter Date Sequence Insurance Name Policy Number Policy Sam Covered Member ID Sam Member ID Guarantor Name 12/05/2024 1 [employer] (MEDICARE [place]AC[place] PPO) [id number] Enrike Coleman [id number] Enrike Coleman Notes Date Note Type Note Provider Name and Address Organization Details Recorded Time 12/05/2024 text/html 84 yo male with history of A.fib (on Eliquis), HTN, DM, memory loss, PMR, BPH, and Prostate cancer - T1c - [place] 3+3 = 6 - involving 1/10 cores (< 5%) on Left - TRUS bx (12/15/12) by Dr. Herrera - on expectant management. Prostate MRI (2014) revealed a PI-RADS 2 lesion - underwent MRI bx (10/31/14) of lesion at [facility] - benign. No family H/O prostate cancer.He [...] 11.80 (09/15/22)- 9.08 (04/16/23) Louis Cook MD [address] [facility],[address], [place], [address], [facility] 12/05/2024 13:50:09
--- OUTSIDE RECORDS SUMMARY | 2025-01-29 14:54 | XMS_ITS | Continuity of Care Document ---
Author Organization [facility] Address [address] [place] [address] Care Team Providers Care Summer Associate Name Role Phone LINDSAY SANFORD Referring Provider [...] for provi gricelda revie w. Not Available [facility] [address], [place], [address], 12/30/2024 11:19:27 12/27/1912/26/2024 urina lysis , dipst ick BLOOD Large (250 RBC/uL ) Not Available [facility] [address], [place], [address], 12/26/2024 14:04:23 12/27/1912/26/2024 urina lysis , dipst ick BILIRUBIN Negati ve Not Available [facility] [address], [place], [address], 12/26/2024 14:04:23 12/27/19 25 12/26/2024 urina lysis , dipst ick UROBILINOGEN 0.2 mg/dL (Norm) Not Available [facility] [address], [place], [address], 12/26/2024 14:04:23 12/27/19 25 12/26/2024 urina lysis , dipst ick KETONES Negati ve Not Available [facility] [address], [place], [address], 12/26/2024 14:04:23 12/27/19 25 12/26/2024 urina lysis , dipst ick PROTEIN 100 mg/dL Not Available [facility] [address], [place], [address], 12/26/2024 14:04:23 12/27/19 25 12/26/2024 urina lysis , dipst ick NITRITES Negati ve Not Available [facility] [address], [place], [address], 12/26/2024 14:04:23 12/27/1912/26/2024 urina lysis , dipst ick GLUCOSE >2000 mg/dL Not Available [facility] [address], [place], [address], 12/26/2024 14:04:23 12/27/1912/26/2024 urina lysis , dipst ick p.H. 5.0 Not Available [facility] [address], [place], [address], 12/26/2024 14:04:23 12/27/1912/26/2024 urina lysis , dipst ick S.G. (Specific [place]) 1.025 Not Available [facility] [address], [place], [address], 12/26/2024 14:04:23 12/27/1912/26/2024 urina lysis , dipst ick LEUKOCYTES Small (25 WBC/uL ) Not Available [facility] [address], [place], [address], 12/26/2024 14:04:23 Result Notes None recorded. Procedures Surgical History Date Name Laterality Status Provider Name and Address Organization Details Recorded Time 5 Fill and Pull/Voiding Trial/TOV completed Meli Rowan [facility] 01/17/2025 13:12:18 5 Cystoscopy- male completed Louis Cook MD [address] [facility],[address], [place], [address], [facility] 12/26/2024 19:09:00 5 Keflex post Cysto completed Carlos Enrique falcon [facility] 12/26/2024 13:31:05 5 Urinalysis completed Carlos Enrique falcon [facility] 12/26/2024 13:30:59 5 LITIGATION MANAGER/blood draw completed Carlos Enrique falcon [facility] 12/05/2024 12:14:49 5 Bladder Scan completed Louis Cook MD [address] [place] [address],[address], [place], [address], [facility] 12/05/2024 12:32:40 5 Urine Culture completed Meli Rowan [facility] 11/10/2024 11:16:59 5 Urinalysis completed Meli Rowan [facility] 11/10/2024 11:16:57 5 Urine Culture completed Anastasiia Ingram [facility] 09/25/2024 12:27:34 5 Urinalysis completed Anastasiia Ingram [facility] 09/25/2024 11:46:34 5 Bladder Scan completed Anastasiia Ingram [facility] 09/25/2024 11:46:26 5 Blood Draw/LITIGATION MANAGER/PSA RESULTS completed Louis Cook MD [address] [place] [address],[address], [place], [address], [facility] 05/30/2024 12:41:37 4 Blood Draw/LITIGATION MANAGER/PSA RESULTS completed Carlos Enrique falcon [facility] 10/11/2023 10:18:27 3 Heart Surgery completed Louis Cook MD [address] [place] [address],[address], [place], [address], [facility] 09/28/2022 16:37:35 procedure on spine completed Louis Cook MD [address] [place] [address],[address], [place], [address], [facility] 09/28/2022 16:37:23 CYSTOSCOPY (SURG) completed Danay Lara [facility] 01/15/2025 15:17:54 Imaging Results None recorded. Procedure [...] Smoking Status Former Smoker Louis Cook MD [address] [place] [address],[address], [place], [address], [facility] 09/28/2022 16:37:00 What Is [...] quadrivalent, PF 3 completed Louis Cook MD [address] [place] [address],[address], [place], [address], [facility] 04/26/2023 10:59:30 RSV, recombinant, protein subunit RSVpreF, adjuvant reconstituted, 0.5 mL, PF 3 completed Louis Cook MD [address] [place] [address],[address], [place], [address], [facility] 04/26/2023 10:59:31 COVID-19, mRNA, LNP-S, PF, 50 mcg/0.5 mL 3 completed Louis Cook MD [address] [place] [address],[address], [place], [address], [facility] 04/26/2023 10:59:31 COVID-19, mRNA, LNP-S, PF, 50 mcg/0.5 mL [address] [facility] 12/26/2024 13:30:47 COVID-19, mRNA, LNP-S, PF, 50 mcg/0.5 mL 4 completed Not Available [facility] 12/26/2024 13:30:47 Influenza, adjuvanted, trivalent, PF [address] [facility] 12/26/2024 13:30:47 COVID-19, mRNA, LNP-S, PF, 50 mcg/0.5 mL [address] [facility] 12/26/2024 13:30:47 IPV 2 completed Susana Allar null, [facility] 01/25/2023 09:28:19 Influenza, adjuvanted, trivalent, PF 7 completed Susana Allar null, [facility] 01/25/2023 09:28:19 Influenza, adjuvanted, trivalent, PF 9 completed Susana Allar null, [facility] 01/25/2023 09:28:19 Influenza, adjuvanted, trivalent, PF 8 completed Susana Allar null, [facility] 01/25/2023 09:28:19 zoster recombinant 0 completed Susana Allar null, [facility] 01/25/2023 09:28:19 zoster recombinant 9 completed Susana Allar null, [facility] 01/25/2023 09:28:19 Influenza, adjuvanted, quadrivalent, PF 0 completed Susana Allar null, [facility] 01/25/2023 09:28:19 Influenza, adjuvanted, quadrivalent, PF 2 completed Susana Allar null, [facility] 01/25/2023 09:28:19 Influenza, adjuvanted, quadrivalent, PF 1 completed Susana Allar null, [facility] 01/25/2023 09:28:19 COVID-19, mRNA, LNP-S, PF, 100 mcg/0.5mL dose or 50 mcg/0.25mL dose 1 completed Susana Allar null, [facility] 01/25/2023 09:28:19 COVID-19, mRNA, LNP-S, PF, 100 mcg/0.5mL dose or 50 mcg/0.25mL dose 1 completed Susana Allar null, [facility] 01/25/2023 09:28:19 COVID-19, mRNA, LNP-S, PF, 100 mcg/0.5mL dose or 50 mcg/0.25mL dose 1 completed Susana Allar null, [facility] 01/25/2023 09:28:19 Pneumococcal conjugate PCV20, polysaccharide TRA357 conjugate, adjuvant, PF 3 completed Susana Allar null, [facility] 01/25/2023 09:28:19 COVID-19, mRNA, LNP-S, PF, 30 mcg/0.3 mL dose, octavia-sucrose 2 completed Susana Allar null, [facility] 01/25/2023 09:28:19 COVID-19, mRNA, LNP-S, bivalent, PF, 50 mcg/0.5 mL or 25mcg/0.25 mL dose 3 completed Susana Allar null, [facility] 01/25/2023 09:28:19 COVID-19, mRNA, LNP-S, bivalent, PF, 50 mcg/0.5 mL or 25mcg/0.25 mL dose 2 completed Susana Allar null, [facility] 01/25/2023 09:28:19 pneumococcal polysaccharide PPV23 6 completed Susana Allar null, [facility] 01/25/2023 09:28:19 pneumococcal polysaccharide PPV23 6 completed Susana Allar null, [facility] 01/25/2023 09:28:19 Tdap 1 completed Susana Allar null, [facility] 01/25/2023 09:28:19 Tdap 1 completed Susana Allar null, [facility] 01/25/2023 09:28:19 Pneumococcal conjugate PCV 13 5 completed Susana Allar null, [facility] 01/25/2023 09:28:19 yellow fever live 2 completed Suasna Allar null, [facility] 01/25/2023 09:28:19 yellow fever live 1 completed Susana Allar null, [facility] 01/25/2023 09:28:19 zoster live 7 completed Susana Allar null, [facility] 01/25/2023 09:28:19 Influenza, high-dose, trivalent, PF 4 completed Susana Allar null, [facility] 01/25/2023 09:28:19 Influenza, high-dose, trivalent, PF 6 completed Susana Allar null, [facility] 01/25/2023 09:28:19 Influenza, high-dose, trivalent, PF 5 completed Susana Allar null, [facility] 01/25/2023 09:28:19 Influenza, split virus, trivalent, preservative 2 completed Susana Allar null, [facility] 01/25/2023 09:28:19 Influenza, split virus, trivalent, preservative 1 completed Susana Allar null, [facility] 01/25/2023 09:28:19 Influenza, split virus, trivalent, preservative 6 completed Susana Allar null, [facility] 01/25/2023 09:28:19 Influenza, split virus, trivalent, preservative 4 completed Susana Allar null, [facility] 01/25/2023 09:28:19 Influenza, split virus, trivalent, preservative 3 completed Susana Allar null, [facility] 01/25/2023 09:28:19 Influenza, split virus, trivalent, preservative 0 completed Susana Allar null, [facility] 01/25/2023 09:28:19 Influenza, split virus, trivalent, preservative 7 completed Susana Allar null, [facility] 01/25/2023 09:28:19 Influenza, split virus, trivalent, preservative 5 completed Susana Allar null, [facility] 01/25/2023 09:28:19 Td (adult), 5 Lf tetanus toxoid, preservative free, adsorbed 5 completed Susana Alllulu null, [facility] 01/25/2023 09:28:19 typhoid, ViCPs 2 completed Susana Allar null, [facility] 01/25/2023 09:28:19 typhoid, ViCPs 1 completed Susana Alllulu null, [facility] 01/25/2023 09:28:19 Hep A-Hep B 2 completed Susana Allar null, [facility] 01/25/2023 09:28:19 Hep A-Hep B 2 completed Susana Alllulu null, [facility] 01/25/2023 09:28:19 Hep A-Hep B 2 completed Susanahuy Leblanc walter, [facility] 01/25/2023 09:28:19 Past Encounters Encounter ID Performer Location Encounter Start Date Encounter Closed Date Diagnosis/Indication Diagnosis SNOMED-CT Code Diagnosis ICD10 Code Diagnosis IMO Codes Diagnosis Note [id number] Louis Cook MD [facility] [address] [place] [address] 12/26/2024 13:28:42 12/28/2024 12:14:11 Malignant neoplasm of prostate [id number] C61 2. Prostate cancer- cT1c - Luisa 3+3 = 6 - on expectant management - PSA (13.7) - increased - has fluctuated over the years- Follow-up in 3 months with PSA(if PSA increases significan t - check Prostate MRI and recommend TRUS bx Increased frequency of urination 829623085 R35.0 H/O Urinary frequency- he is off Lasix- incomplete emptying (188 mL)- stopped Gemtesa 75 mg daily Microscopic hematuria 19 [id number] R31.29 [id number] 1. Microscopi c hematuria- CT Urogram (12/12/24) [...] tract symptoms due to benign prostatic hypertrophy [id number] 9101 N40.1 3. BPH- last PVR = 188 mL- continue Flomax 0.4 mg daily- continue Cialis 5 mg daily- check Bladder scan at Follow-up Multiple n odules of lung 546585227 R91.8 [id number] 4. Pulmonary nodules- CT Urogram (12/12/24) - no renal masses, hydronephr osis or filling defects - 3 (1mm) stones in Right kidney - + diffuse bladder wall thickening and large prostate.- Lung - small nodules - new 7 mm nodule Right medial lower lobe- (repeat Chest CT scan recommende d in 3-6 months) [id number] Louis Cook MD [facility] [address] [place] [address] 01/17/2025 12:09:37 01/18/2025 10:40:44 Malignant neoplasm of prostate [id number] C61 Health Concerns Section Related Observation LastModified by Organization Detai ls LastModified Time None Recorded Concern Status LastModified by Organization Details LastModified Time None Recorded Payers Encounter Date Sequence Insurance Name Policy Number Policy Sam Covered Member ID Sam Member ID Guarantor Name 01/17/2025 1 [employer] (MEDICARE [place] PPO) [id number] Enrike Coleman [id number] Enrike Coleman Notes Date Note Type Note [...] by Meli Sanchez RN. NATALIE Godoy - [facility] 01/17/2025 13:13:36
[2025-01-29 14:56] LABS: Lymphocytes Absolute Auto 1.30 K/uL (0.90-2.90); Slide Review Reflex No
[2025-01-29 14:58] LABS: Albumin* 4.2 g/dL (3.3-5.0); Chloride* 95 mmol/L (96-114); Potassium* 4.3 mmol/L (3.6-5.1); Sodium* 133 mmol/L (135-149)
[2025-01-29 15:00] LABS: Blood Urea Nitrogen* 24 mg/dL (7-30); Creatinine* 1.0 mg/dL (0.5-1.5); Est. Creatinine Clearance* 49.58; Estimated Glomerular Filt Rate 73 ml/min
[2025-01-29 15:01] LABS: Alanine Aminotransferase* 17 U/L (4-50); Alkaline Phosphatase* 104 U/L (40-150); Anion Gap 16 mEq/L (7-15); Aspartate Amino Transferase* 24 U/L (12-35); Bilirubin Direct* 0.3 mg/dL (0.0-0.5); Bilirubin Total* 1.5 mg/dL (0.1-1.5); Carbon Dioxide* 22 mmol/L (20-32); Glucose* 297 mg/dL (60-115); Total Protein* 7.1 g/dL (6.0-8.3)
[2025-01-29 15:02] LABS: Calcium* 9.3 mg/dL (8.4-10.6)
[2025-01-29] MEDS: 0.9 % SODIUM CHLORIDE 500 ML 500 ML IV (15:26)
[2025-01-29 16:36] LABS: Lactate* 2.4 mmol/L (0.5-1.9)
== END 2025-01-29 17:13 | disposition home or self-care (01) ==
PROVIDERS: Emergency Provider Emergency Medicine; PCP Family Medicine
DX: R42 Dizziness and giddiness (principal); E86.0 Dehydration; I48.91 Unspecified atrial fibrillation; Z79.01 Long term (current) use of anticoagulants; Z79.899 Other long term (current) drug therapy
CPT/HCPCS: 36415; 70450; 70496; 70498; 80048; 80076; 82947; 83605; 83735; 84484; 85025; 86140; 93005; 96360; 99284; 99285; J7030; Q9967

== ENCOUNTER 2025-02-05 13:30 | Outpatient (CLI) | payer MEDICARE, SELFPAY | END 2025-02-05 13:31 | disposition home or self-care (01) | LOC: AMB 02-07 16:20 | PROVIDERS: PCP Family Medicine; Visit Provider Emergency Medicine | DX: S01.81XA Laceration without foreign body of other part of head, initial encounter (principal); S62.604A Fracture of unspecified phalanx of right ring finger, initial encounter for closed fracture; W19.XXXA Unspecified fall, initial encounter; Y92.89 Other specified places as the place of occurrence of the external cause | CPT/HCPCS: A0425; A0427 ==

== ENCOUNTER 2025-02-05 13:59 | Emergency (ER) | payer MEDICARE, SELFPAY ==
[2025-02-05] VITALS (16 sets, daily range): BP systolic 127–132; BP diastolic 64–78; PULSE 67–85; RESP 12–23; TEMP 36.8; O2SAT 96–100; BMI 28.0
--- NOTE | 2025-02-05 14:01 | CRLHL7_ITS ---
For Patients: As a result of the Cures Act, medical imaging exams and procedure reports are released immediately into your electronic medical record. You may view this report before your referring provider. If you have questions, please contact your health care provider. INDICATION: Fall. TECHNIQUE: CT cervical spine without contrast. COMPARISON: None. FINDINGS: No acute fracture, malalignment or significant bony central canal compromise. [id number] degenerative changes with disc space narrowing, disc osteophyte complex formation, uncovertebral hypertrophy and facet arthropathy. No additional osseous abnormality. Paraspinal soft tissues as imaged are unremarkable. IMPRESSION: No acute cervical spine fracture. Dictated by Marcelo Forman MD @ 02/05/2025 2:29:22 PM Please note that all CT scans at this facility use dose modulation, iterative reconstruction, and/or weight-based dosing when appropriate to reduce radiation dose to as low as reasonably achievable. Dictated by: Marcelo Forman MD @ 02/05/2025 14:29:46 (Electronically Signed)
--- NOTE | 2025-02-05 14:04 | CRLHL7_ITS ---
For Patients: As a result of the Cures Act, medical imaging exams and procedure reports are released immediately into your electronic medical record. You may view this report before your referring provider. If you have questions, please contact your health care provider. INDICATION: Fall. Anticoagulated. TECHNIQUE: CT head without contrast. COMPARISON: CT 01/29/2025 and 02/24/2024. FINDINGS: Generalized volume loss and changes of chronic small vessel ischemic disease, as before. Intracranial atherosclerosis. No mass effect or midline shift. No hydrocephalus. No CT evidence of acute hemorrhage or infarction. No abnormal extra-axial fluid collection. Bone windows show no acute calvarial fracture. Paranasal sinuses and orbits as imaged are unremarkable. Soft tissue swelling of the left frontal scalp. IMPRESSION: 1. No acute intracranial abnormality. 2. Soft tissue swelling left frontal scalp. Dictated by Marcelo Forman MD @ 02/05/2025 2:24:13 PM Please note that all CT scans at this facility use dose modulation, iterative reconstruction, and/or weight-based dosing when appropriate to reduce radiation dose to as low as reasonably achievable. Dictated by: Marcelo Forman MD @ 02/05/2025 14:24:53 (Electronically Signed)
--- NOTE | 2025-02-05 14:14 | ED.GENADULT ---
HPI - General Adult General Date Seen: 02/05/25 Chief complaint: Fall/Minor Trauma Stated complaint: head injury Time Seen by Provider: 02/05/25 14:01 History of Present Illness HPI narrative: 84-year-o old male was here in the ER 6 days ago on 01/30. Per that note he had had an episode of dizziness like things were spinning and he fell out of bed. BP was 99/63. He had a cataract surgery week ago. He had a CABG about a year ago last March. He is on apixaban, Jardiance, glipizide, metformin, metoprolol, rosuvastatin, aspirin 81, prednisone [address] negative. CTA head neck were negative. He had a value blood sugar with sugar of 297. Venous lactic was 3. White count Normal at 7.6. Hemoglobin 11.3. Platelet count 196.. Afebrile. Sodium 133, potassium 4.3, anion gap 16, creatinine 1.0, lactic 3.0, came down to 2.4 after fluids. The patient seems a little bit confused and it seems not a reliable historian. He says that he fell while he was in the ER, but that is not actually true. He fell in his condo billing while taking the trash out.. Per patient's the patient does have some cognitive memory loss and so is not a completely Reliable historian. When she mentions this he gets angry and started shouting at her. He is easily de-escalated. He has been at home living with his and their condo for the past week and generally doing well. He has been having a lot of dressing changes after his recent cataract surgery. This afternoon he was taking some of the dressings and waist down to the trash room of their condo building. He recalls that he was putting most of the material in the trash and then He reports he just as he was finishing up he tripped over the cart and fell. he thinks he tripped and probably did not black out or faint. He does not recall any dizziness before the fainting spell. No other illness earlier today. We know that he struck his forehead and face against the floor because he has lacerations there. Mild frontal headache. He is not nauseous. He says his vision is normal. No neck pain. He also had a an abrasion around his left elbow that was bleeding fairly briskly because he is on Eliquis. A dressing was applied by EMS. He also injured his right hand 4th digit. 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 However since falling today he has a new injury and deformity with a ulnar deviation and dorsal deviation of the D IP joint. He says his fingers not hurting but he is not able to flex the D IP joint. He has no numbness in the finger. No bleeding. He denies any other pain. No neck pain. No back pain. No pain in his hips or knees. No leg pain. Related Data Home Medications ?Medication ?Instructions ?Recorded ?Confirmed apixaban 5 mg tablet (Eliquis) 5 mg PO Q12H 02/15/22 02/05/25 blood sugar diagnostic (True 02/15/22 10/25/24 Metrix Glucose Test Strip) metformin 500 mg tablet,extended 2,000 mg PO QPM 02/15/22 01/09/25 release 24 hr acetaminophen 500 mg capsule 1,000 mg PO BID 07/27/23 02/05/25 tamsulosin 0.4 mg capsule 0.4 mg PO DAILY 07/27/23 01/09/25 empagliflozin 10 mg tablet 10 mg PO DAILY 02/24/24 02/05/25 (Jardiance) glipizide 10 mg tablet, extended 20 mg PO DAILY 02/24/24 01/09/25 release 24 hr metoprolol succinate 25 mg 25 mg PO DAILY 02/24/24 02/05/25 tablet,extended release 24 hr nitroglycerin 0.4 mg sublingual 0.4 mg sublingual Q5M PRN 02/24/24 01/09/25 tablet rosuvastatin 20 mg tablet 20 mg PO QPM 02/24/24 01/09/25 aspirin 81 mg capsule 81 mg PO DAILY 06/11/24 02/05/25 cholecalciferol (vitamin D3) 1,250 1,250 mcg PO Q7D 12/28/24 02/05/25 mcg (50,000 unit) capsule prednisone 5 mg tablet 5 mg PO DAILY 12/28/24 01/09/25 tadalafil 5 mg tablet 5 mg PO HS 12/28/24 01/09/25 Previous Rx's ?Medication ?Instructions ?Recorded furosemide 20 mg tablet 40 mg (2 x 20 mg) PO DAILY@0800 30 01/02/25 days #60 tabs potassium chloride 10 mEq 20 meq (2 x 10 mEq) PO DAILY 30 01/02/25 capsule,extended release days #60 caps clotrimazole 1 % topical cream 1 applic topical BID 10 days #15 01/05/25 grams fluconazole 150 mg tablet 150 mg PO Q3D 2 doses #2 tabs 01/05/25 Allergies Allergy/AdvReac Type Severity Reaction Status Date / Time No Known Drug Allergies Allergy Verified 01/09/25 17:52 [facility] Medical History Hematuria ?R31.9 - Hematuria, unspecified (ICD-10) Type 2 diabetes mellitus ?E11.9 - Type 2 diabetes mellitus without complications (ICD-10) HFrEF (heart failure with reduced ejection fraction) ?I50.20 - Unspecified systolic (congestive) heart failure (ICD-10) ASHD (arteriosclerotic heart disease) ?I25.10 - Atherosclerotic heart disease of platinum coronary artery without angina pectoris (ICD-10) Chronic anticoagulation ?Z79.01 - half-way (current) use of anticoagulants (ICD-10) Hypertension ?I10 - Essential (primary) hypertension (ICD-10) BPH without urinary obstruction ?N40.0 - Benign prostatic hyperplasia without lower urinary tract symptoms (ICD-10) Mild cognitive impairment ?G31.84 - Mild cognitive impairment of uncertain or unknown etiology (ICD-10) Prostate cancer ?C61 - Malignant neoplasm of prostate (ICD-10) Mobitz (type) I (Wenckebach's) atrioventricular block ?I44.1 - Atrioventricular block, second degree (ICD-10) Atrial fibrillation ?I48.91 - Unspecified atrial fibrillation (ICD-10) Iron deficiency anemia ?D50.9 - Iron deficiency anemia, unspecified (ICD-10) Erectile dysfunction ?N52.9 - Male erectile dysfunction, unspecified (ICD-10) Displacement of lumbar intervertebral disc without myelopathy ?M51.26 - Other intervertebral disc displacement, lumbar region (ICD-10) Degeneration of lumbar or lumbosacral intervertebral disc ?M51.37 - Other intervertebral disc degeneration, lumbosacral region (ICD-10) Vitamin B12 deficiency ?E53.8 - Deficiency of other specified B group vitamins (ICD-10) Lumbar radiculopathy ?M54.16 - Radiculopathy, lumbar region (ICD-10) 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 - Complete traumatic metacarpophalangeal amputation of unspecified finger, initial encounter (ICD-10) Diabetes ?E11.9 - Type 2 diabetes mellitus without complications (ICD-10) COVID ?U07.1 - COVID-19 (ICD-10) Surgical History S/P CABG x 3 ?Z95.1 - Presence of aortocoronary bypass graft (ICD-10) History of permanent cardiac pacemaker placement ?Z95.0 - Presence of cardiac pacemaker (ICD-10) History of cholecystectomy ?Z90.49 - Acquired absence of other specified parts of digestive tract (ICD-10) History of appendectomy ?Z90.49 - Acquired absence of other specified parts of digestive tract (ICD-10) History of arthroscopy of left shoulder (03/21/96) ?Z98.890 - Other specified postprocedural states (ICD-10) History of arthroscopy of right shoulder (11/26/11) ?Z98.890 - Other specified postprocedural states (ICD-10) S/P ORIF (open reduction internal fixation) fracture (04/05/14) ?Z98.890 - Other specified postprocedural states (ICD-10) ?Z87.81 - Personal history of (healed) traumatic fracture (ICD-10) Family History Mother Bowel cancer Social History What is your current living situation?: I presently have a place to live Problems where you live: no known problems Problems where you live details: no known problems In the past 12 months, utilities in danger of being shut off: no In past 12 months, lack of transportation kept you from medical appts, meetings, work, or getting things needed for daily living: no In the past 12 mos, have been you worried that your food would run out before you had money to buy more?: never true In the past 12 mos, the food you bought just didn't last and you didn't have money to buy more?: never true Highest level of school completed/degree received: Bachelor's degree Smoking Status: Former smoker What tobacco products do you use: cigarettes Smoking quit date/years: >15 years ago Do you use any of these nicotine containing products: None Second hand tobacco smoke exposure: Yes How often do you have a drink containing alcohol: 4 or more times a week How many standard drinks containing alcohol do you have on a typical day: 1 or 2 How often do you have six or more drinks on one occasion: Never AUDIT-C Alcohol total score: 4 Non-prescribed substance use: denies use Caffeine: No How often does anyone, including family, friends and others, physically hurt you: never How often does anyone, including family, friends and others, insult or talk down to you: never How often does anyone, including family, friends and others, threaten you with harm: never How often does anyone, including family, friends and others, scream or curse at you: never service: No Exam Narrative: Exam Narrative: Primary Survey: A- patent. Speaking clearly. Phonation normal. No stridor. B- breathing easily. Lung sounds clear and equal. Oxygen saturation normal on room air C- no active bleeding. Blood pressure stable. Symmetric pulses and cap refill in 4 extremities. D- alert and oriented xTwo but does not know the day of the month. This is his baseline mental status, per his .. GCS 15. No focal deficits. Constitutional: Appears well-developed and well-nourished. Alert. Conversant But a little bit confused.. Non toxic. HENT: Head: He has an irregularly shaped abrasion over the central forehead. At the superior and this is the 1 cm superficial linear laceration that is not penetrate through the dermis. No foreign body. Does not require sutures. In the center of this abrasion there is a 1.5 cm curvilinear laceration with active slow volume pulsatile bleeding coming from the inferior tip. No underlying scalp hematoma. No foreign body. No depressed skull fracture, Raccoon Eyes, Angeles's sign, or hemotympanum. Face normal. TMs normal. Nose: He does have a superficial abrasion on the bridge of the nose without any active bleeding. Appears to be an abrasion, not a suturable laceration. No epistaxis. No septal injury or hematoma. Mouth/Throat: Oral mucosa is clear and moist. no trismus. Pharynx normal. Tonsils symmetric. No tonsillar enlargement, erythema, or exudate. No TMJ pain. Mid face and lower face are stable. Eyes: Conjunctivae normal. EOM normal. Pupils equal, round, and reactive to light. No scleral icterus. Neck: Normal range of motion. Neck supple. No tracheal deviation present. He denies any neck pain, but with his cognitive impairment difficult to clearly clear him. I do not think he qualifies as low risk by NEXUS. Cardiovascular: Normal rate, regular rhythm. No gallop. No friction rub. No murmur heard. Symmetric radial artery pulses Pulmonary/Chest: Effort normal. No stridor. No respiratory distress. No wheezes. No rales. No rhonchi . No tenderness. Abdominal: Soft. Bowel sounds normal. No distension. No mass. No tenderness. No rebound. No guarding. Musculoskeletal: No T or L-spine tenderness. Pelvis is stable. No pelvic or hip tenderness. RUE: Elbow, humerus, shoulder, clavicle are nontender. Forearm and wrist are nontender. Hand is nontender. However on the 4th digit there is an injury to the D IP joint. The patient has dorsal and the ulnar deviation of the distal phalanges compared to the proximal finger consistent with either a D IP joint dislocation or a middle phalanges fracture. 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 He is not able to extended beyond 45? of flexion at the PIP joint. apparently this is a chronic injury from a couple of years ago. MCP has normal range of motion. Intact ulnar and radial sensory function. No laceration or active bleeding. LUE: Superficial irregular shaped skin tear on the lateral aspect of the forearm just distal to the lateral elbow (over the mobile wad of the forearm).Normal range of motion In his shoulder, elbow, forearm, wrist, fingers.. No tenderness. No deformity RLE: Normal range of motion. No edema. No tenderness. No deformity LLE: Normal range of motion. No edema. No tenderness. No deformity Neurological: Alert and oriented to person, place, and time. Normal strength. CN II-VII intact. No sensory deficit. GCS eye subscore is 4. GCS verbal subscore is 5. GCS motor subscore is 6. Normal coordination Skin: Skin is warm and dry. No rash noted. No pallor. Normal capillary refill. Psychiatric: Normal mood. At presentation was briefly very agitated and angry at his . Does sporadically have trouble recalling recent events and life acts like his current address and Street number. 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 Initially anxious at presentation but when I note with him that he is speaking very rapidly, he is actually able to take keep deep breath and slow down. He is generally pretty conversant and seems to be a mostly reliable story but is pretty confused about events of today. Const: Vital Signs, click to edit/add: Vital Signs - 24 hr 02/05/25 14:18 02/05/25 14:40 02/05/25 14:45 Temperature 98.2 F Pulse Rate 75 74 Pulse Rate [Pulse Oximeter] 74 Respiratory Rate 18 Blood Pressure Blood Pressure [Le ft Upper Arm] 132/78 Pulse Oximetry 98 100 99 Oxygen Delivery Me od Room Air 02/05/25 15:02 02/05/25 15:14 02/05/25 15:30 Temperature Pulse Rate 75 67 Pulse Rate [Pulse Oximeter] Respiratory Rate Blood Pressure 132/78 Blood Pressure [Le ft Upper Arm] Pulse Oximetry 98 99 Oxygen Delivery Me od 02/05/25 15:35 02/05/25 15:35 02/05/25 15:36 Temperature Pulse Rate 71 71 70 Pulse Rate [Pulse Oximeter] Respiratory Rate 12 12 Blood Pressure Blood Pressure [Le ft Upper Arm] Pulse Oximetry 96 96 100 Oxygen Delivery Me od 02/05/25 15:45 02/05/25 16:00 02/05/25 16:04 Temperature Pulse Rate 69 70 71 Pulse Rate [Pulse Oximeter] Respiratory Rate 13 23 Blood Pressure Blood Pressure [Le ft Upper Arm] Pulse Oximetry 99 99 100 Oxygen Delivery Me thod 02/05/25 16:05 02/05/25 16:19 02/05/25 16:30 Temperature Pulse Rate 72 85 70 Pulse Rate [Pulse Oximeter] Respiratory Rate 12 21 12 Blood Pressure Blood Pressure [Le ft Upper Arm] Pulse Oximetry 99 99 [facility] 16:32 02/05/25 16:45 Temperature Pulse Rate 71 Pulse Rate [Pulse Oximeter] Respiratory Rate 18 12 Blood Pressure 127/64 Blood Pressure [Le ft Upper Arm] Pulse Oximetry 99 Oxygen Delivery Me thod Course Vital Signs Vital signs: Initial Vital Signs Temperature 98.2 F 02/05/25 14:18 Temperature Source Temporal Artery Scan 02/05/25 14:18 Pulse Rate 74 02/05/25 14:18 Respiratory Rate 18 02/05/25 14:18 Blood Pressure 132/78 02/05/25 14:18 Blood Pressure Mean 96 02/05/25 14:18 Pulse Oximetry 98 02/05/25 14:18 Oxygen Delivery Method Room Air 02/05/25 14:18 Vital Signs Temperature 98.2 F 02/05/25 14:18 Pulse Rate 74 02/05/25 14:18 Respiratory Rate 18 02/05/25 14:18 Blood Pressure 132/78 02/05/25 14:18 Pulse Oximetry 98 02/05/25 14:18 Oxygen Delivery Method Room Air 02/05/25 14:18 Temperature 98.2 F 02/05/25 14:18 Pulse Rate 71 02/05/25 16:32 Respiratory Rate 12 02/05/25 16:45 Blood Pressure 127/64 02/05/25 16:32 Pulse Oximetry 99 02/05/25 16:32 Oxygen Delivery Method Room Air 02/05/25 14:18 Medications Administered Medications: Discontinued Medications Generic Name Dose Route Start Last Admin Trade Name Freq PRN Reason Stop Dose Admin Sodium Chloride 1,000 mls @ 1,000 mls/hr 02/05/25 14:45 02/05/25 16:30 0.9 % Sodium Chloride 1000 Ml IV 02/05/25 15:44 Infused .Q1H JACKIE Infusion Lidocaine HCl 4 ml 02/05/25 14:46 02/05/25 14:45 Lidocaine 1% 5 Ml (Pf) 5 Ml Vial INJECTION 02/05/25 14:47 4 ml ONCE ONE Administration Medical Decision Making MDM Narrative Medical decision making narrative: 84-year-old gentleman on Eliquis presenting to the ER today with a ground level fall and associated head injury. This patient presents with blunt head trauma. Differential includes intracranial injuries (e.g. skull fracture, epidural hematoma, subdural hematoma, intracerebral hemorrhage, and traumatic subarachnoid hemorrhage), verses concussion or other traumatic brain injury. CT imaging was obtained and fortunately was normal. This was associated with a forehead laceration abrasion. I did so the larger of the 2 central forehead lacerations because there was active bleeding from it and good hemostasis was achieved.. The patient is to follow up for suture removal as instructed in 5-7 days . Indications to seek urgent reevaluation and signs of infection (including but not limited to increasing pain, redness, swelling, fevers, and drainage) were reviewed. Tetanus is up-to-date. This is a clean and noncontaminated wound in which prophylactic antibiotics are not indicated. An understanding of the discharge instructions and need for follow up were verbally confirmed. He also has associated abrasions on the bridge of his nose but no suturable laceration. No evidence for any nasal deformity or epistaxis or other signs of nasal fracture. Would hold off on facial CT for now. Because of the patient's confusion of presentation he was not clear will for C-spine injury by NEXUS. C-spine CT is normal. No other symptoms of spinal cord injury. He also has a skin tear near the left elbow which can heal by secondary intention. Dressings and antibiotic ointment applied all of his wounds. Tetanus is up-to-date. He also has evidence for a fracture dislocation involving the distal in pharyngeal joint of his right hand, 4th digit. After digital block I was able to relocate the dislocation. Follow-up x-rays suggest that there probably is a fracture at the distal end of the middle phalanges. He is placed into a baseball splint, by myself here in the ER and I recommend close outpatient follow-up with the orthopedic clinic. Incidentally he also has previous finger injury there and has a chronic flexion deformity of the PIP joint so is not able to fully extend that finger. The PIP joint injury is not injury from today's incident. At this point we suspect that his fall was probably a trip and fall rather than a syncopal event or seizure. We did obtain workup including EKG, labs which are at his baseline. The patient/family understand that they must return if any red flags appear/develop in the coming hours/days, as this may represent an indication to perform a repeat CT scan or further evaluation. I have noted that red flags include: headaches that get worse, increased drowsiness, strange behavior, repetitive speech, seizures, repeated vomiting, growing confusion, increased irritability, slurred speech, weakness or numbness, and loss of responsiveness. This information will also be provided in writing at discharge. The patient's questions have been answered. They have a responsible adult to accompany them home. Lab Data Labs: Lab Results 02/05/25 02/05/25 Range/Units 15:42 16:15 WBC 6.96 (4.50-11.00) K/uL RBC 3.72 L (4.30-5.90) m/uL Hgb 9.6 L (13.5-17.5) gm/dL Hct 30.7 L (37.0-53.0) % MCV 83 (80-100) fL MCH 26 (26-34) pg MCHC 31 L (32-36) gm/dL RDW Coeff of Ferny 15.6 H (11.5-15.5) % Plt Count 176 (140-440) K/uL Neut % (Auto) 73.4 H (42.0-72.0) % Lymph % (Auto) 17.1 L (20-44) % [place] % (Auto) 6.0 (0.0-11.0) % Eos % (Auto) 2.2 (0.0-7.0) % Baso % (Auto) 0.4 (0.0-3.0) % Neut # (Auto) 5.10 (1.7-7.0) K/uL Lymph # (Auto) 1.20 (0.90-2.90) K/uL [place] # (Auto) 0.40 (0.00-0.90) K/UL Eos # (Auto) 0.15 (0.00-0.50) K/uL Baso # (Auto) 0.03 (0.00-0.30) K/uL Abs Immat Gran (auto) 0.06 (0.00-0.30) K/uL Imm/Tot Granulo (auto) 0.9 % Sodium 135 (135-149) mmol/L Potassium 3.5 L (3.6-5.1) mmol/L Chloride 99 (96-114) mmol/L Carbon Dioxide 21 (20-32) mmol/L Anion Gap 15 (7-15) mEq/L BUN 22 (7-30) mg/dL Creatinine 0.7 (0.5-1.5) mg/dL Estimated Creat Clear 51.30 Estimated GFR 90 ml/min Glucose 290 H (60-115) mg/dL Calcium 8.7 (8.4-10.6) mg/dL POC Troponin I High Sensi 6.7 (2.9-28.0) pg/mL Urine Color Yellow (Yellow) Urine Appearance Clear (Clear) Urine pH 6.0 (5.0-8.5) Ur Specific [place] 1.010 (1.000-1.030) Urine Protein Negative (Negative) Urine Glucose (UA) 2+ A (Negative) Urine Ketones Negative (Negative) Urine Blood Negative (Negative) Urine Nitrite Negative (Negative) Urine Bilirubin Negative (Negative) Urine Urobilinogen 0.2 (0.2-1.0) Ur Leukocyte Esterase Negative (Negative) Urine RBC 0-2 (0-2) Urine WBC 0-2 (0-5) Ur Squamous Epith Cells None (None-Few) Urine Bacteria None (None) Imaging Data CT scan - head: Attestation: I have reviewed the pertinent imaging results. Radiologist's impression: IMPRESSION: 1. No acute intracranial abnormality. 2. Soft tissue swelling left frontal scalp. CT C spine: Attestation: I have reviewed the pertinent imaging results. Radiologist's impression: IMPRESSION: No acute cervical spine fracture. XR Finger, right 4th: Attestation: I have reviewed the pertinent imaging results. Radiologist's impression: Impression: 1. Flexion deformity of the 4th digit limits evaluation. Recommend correlation with physical examination. 2. Cortical irregularity of the head of the 4th middle phalanx as evidence for fracture. ECG Data Attestation: I personally reviewed and interpreted this ECG as follows: Interpretation: Sinus rhythm with Ventricular paced QRS complexes andfirst-degree AV block. Rate 73 OK interval 144. he has QRS widening. Normal QRS axis. Wide QRS morphology consistent with ventricular paced rhythm. QTC 450, QTC 495. No ST segment elevation or depression By Sgarbossa Discharge Plan Discharge Clinical Impression: Forehead laceration, Head injury, Dislocation of finger, interphalangeal joint, right, closed, Finger fracture, right, Skin tear Patient Disposition: Home, Self-Care Condition: Stable Instructions: Laceration (DC), Head Injury (DC), Finger Dislocation (ED) Additional Instructions: 1. as we discussed, please come back to the ER right away if you have any problems especially headache, confusion, vomiting, or uncontrolled bleeding. 2. To care for the lacerations on your forehead, keep the wound clean and covered with a dressing. Clean it gently once per day with warm water. After it is clean reapply antibiotic ointment and a new dressing. Follow-up with your doctor in 7 days to have the sutures removed. 3. If you notice any infection around the wound such as redness, swelling, or pus draining from the wounds, come back to the ER right away to be rechecked. 4. You dislocated the finger joint of your right hand ring finger today. Please keep the splint in place until you follow-up with the [facility]. To schedule your ER follow-up appointment, call [phone]. Prescriptions: No Action tamsulosin 0.4 mg capsule 0.4 mg PO DAILY acetaminophen 500 mg capsule 1,000 mg PO BID glipizide 10 mg tablet extended release 24hr 20 mg PO DAILY nitroglycerin 0.4 mg tablet, sublingual 0.4 mg sublingual Q5M PRN metoprolol succinate 25 mg tablet extended release 24 hr 25 mg PO DAILY rosuvastatin 20 mg tablet 20 mg PO QPM Jardiance 10 mg tablet 10 mg PO DAILY fluconazole 150 mg tablet 150 mg PO Q3D Qty: 2 0RF clotrimazole 1 % cream 1 applic topical BID 10 Days Qty: 15 0RF (DME) True Metrix Glucose Test Strip Strip MISCELLANEOUS Patient Comments: TEST 2 TIMES PER WEEK. metformin 500 mg tablet extended release 24 hr 2,000 mg PO QPM Patient Comments: TAKE 4 TABLETS (2,000 MG) BY MOUTH ONCE DAILY WITH EVENING MEAL. Eliquis 5 mg tablet 5 mg PO Q12H Patient Comments: TAKE 1 TABLET (5 MG) BY MOUTH TWO TIMES DAILY. aspirin 81 mg capsule 81 mg PO DAILY cholecalciferol (vitamin D3) 1,250 mcg (50,000 unit) capsule 1,250 mcg PO Q7D prednisone 5 mg tablet 5 mg PO DAILY tadalafil 5 mg tablet 5 mg PO HS potassium chloride 10 mEq Capsule, Extended Release 20 meq PO DAILY 30 Days Qty: 60 0RF furosemide 20 mg Tablet 40 mg PO DAILY@0800 30 Days Qty: 60 0RF Follow Up/Referrals: Bari Toscano MD [Primary Care Provider, [facility]] Stand Alone Forms: MyHealth Info Instructions Procedures Laceration Forehead laceration: Pre procedure diagnosis: forehead laceration, 1.5 cm, with pulsatile bleeding Verification/time out: correct patient and correct procedure Site: face ( central forehead. there is a irregularly-shaped 4 x 5 cm abrasion. In the center of this there is a 1.5 cm curvilinear lac w/ small volume pulsatile bleeding coming from the inferior tip of the lac. there is additional 1 cm very superficial lace t the superior border but doesnt needs sutures) Size (cm): 1.5 Description: linear Depth: simple, single layer Local Anesthetic: lidocaine 1% and with epi Amount of anesthesia used (mL): 5 Pre-repair: wound explored Skin layer closed with: nylon Size (cm): 6-0 Number of sutures: 3 Technique: simple, interrupted ( First suture placed directly over the pulsatile bleeding and good hemostasis was achieved. No signs of expanding hematoma. Two additional sutures were placed) Orthopedic Joint Reduction right hand 4th digit D IP joint dislocation: Joint Reduction Location: finger ( right 4th digit DI P) Manipulation used?: Yes Analgesia: nerve block ( digital block using 4 mL of 1% lidocaine under sterile technique from a volar approach.) Local Anesthesia: lidocaine 1% Amount of anesthesic used (mL): 4 Technique used: traction/counter-traction and direct manipulation Post-reduction neuro vascular exam: intact Post Reduction X-Ray Obtained: Yes Post Reduction X-Ray Results: reduced Splint Applied: Yes Patient Tolerated Procedure: well
--- NOTE | 2025-02-05 14:43 | CRLHL7_ITS ---
For Patients: As a result of the Century Cures Act, medical imaging exams and procedure reports are released immediately into your electronic medical record. You may view this report before your referring provider. If you have questions, please contact your health care provider. Indication: Finger injury. Technique: Three views of the right 4th digit. Comparison: None. Findings: Flexion deformity of the interphalangeal joints is noted. This limits evaluation. Cortical irregularity of the ulnar aspect of the head of the middle phalanx is noted on the frontal projection which is suspicious for fracture. Mild soft tissue swelling. Impression: 1. Flexion deformity of the 4th digit limits evaluation. Recommend correlation with physical examination. 2. Cortical irregularity of the head of the 4th middle phalanx as evidence for fracture. Dictated by Al Colón MD @ 02/05/2025 4:26:01 PM (Electronically Signed)
[2025-02-05] MEDS: LIDOCAINE 1% 5 ml (pf) 5 ML VIAL 4 ML INJECTION (14:45)
[2025-02-05 15:50] LABS: Hematocrit* 30.7 % (37.0-53.0); Hemoglobin* 9.6 gm/dL (13.5-17.5); Immature Granulocytes Abs Auto 0.06 K/uL (0.00-0.30); Immature Granulocytes Pct Auto 0.9 %; Mean Corpuscular HGB Conc 31 gm/dL (32-36); Mean Corpuscular Hemoglobin 26 pg (26-34); Mean Corpuscular Volume 83 fL (80-100); RDW Coefficient of Variation % 15.6 % (11.5-15.5); Red Blood Count* 3.72 m/uL (4.30-5.90); White Blood Count* 6.96 K/uL (4.50-11.00)
[2025-02-05 16:07] LABS: Lymphocytes Absolute Auto 1.20 K/uL (0.90-2.90); Slide Review Reflex No
[2025-02-05 16:21] LABS: Chloride* 99 mmol/L (96-114)
[2025-02-05 16:22] LABS: Potassium* 3.5 mmol/L (3.6-5.1); Sodium* 135 mmol/L (135-149)
[2025-02-05 16:24] LABS: Blood Urea Nitrogen* 22 mg/dL (7-30); Creatinine* 0.7 mg/dL (0.5-1.5); Est. Creatinine Clearance* 51.30; Estimated Glomerular Filt Rate 90 ml/min
[2025-02-05 16:25] LABS: Appearance Urine Clear (Clear)
[2025-02-05 16:25] LABS: Anion Gap 15 mEq/L (7-15); Calcium* 8.7 mg/dL (8.4-10.6); Carbon Dioxide* 21 mmol/L (20-32); Glucose* 290 mg/dL (60-115)
== END 2025-02-05 17:17 | disposition home or self-care (01) ==
PROVIDERS: Emergency Provider Emergency Medicine; PCP Family Medicine
DX: S63.294A Dislocation of distal interphalangeal joint of right ring finger, initial encounter (principal); S01.81XA Laceration without foreign body of other part of head, initial encounter; S50.312A Abrasion of left elbow, initial encounter; Z79.01 Long term (current) use of anticoagulants; Z79.82 Long term (current) use of aspirin; Z79.84 Long term (current) use of oral hypoglycemic drugs; Z87.891 Personal history of nicotine dependence; W01.0XXA Fall on same level from slipping, tripping and stumbling without subsequent striking against object, initial encounter; Y93.01 Activity, walking, marching and hiking; Y92.038 Other place in apartment as the place of occurrence of the external cause
CPT/HCPCS: 12011; 26775; 36415; 70450; 72125; 73140; 80048; 81001; 84484; 85025; 93005; 96360; 99285; J7030